=== PATIENT | female | born 1945 | race Caucasian/White ===

== ENCOUNTER 2020-12-28 07:28 | Emergency (ER) | payer BC ==
[2020-12-28] MEDS ORDERED: LIDOCAINE 2% MPF 5 ML VIAL IV ONE (07:29)
[2020-12-28] MEDS ORDERED: ETOMIDATE 20 MG/10 ML VIAL IV ONE (07:29)
[2020-12-28] MEDS ORDERED: SUCCINYLCHOLINE 20 MG/ML (10 ML) IV ONE (07:29)
--- NOTE | 2020-12-28 07:58 | RAD REPORT ---
EXAM DESCRIPTION: CT - Ct Stroke Brain Wo Cont - 12/28/2020 7:42 am CLINICAL HISTORY: aphasia COMPARISON: none TECHNIQUE: Computed axial tomography of the head was obtained. All CT scans are performed using dose optimization technique as appropriate and may include automated exposure control or mA/KV adjustment according to patient size. FINDINGS: A 6 centimeter intraparenchymal bleed right temporal frontal lobe. Surrounding subarachnoi d blood is seen. Shift of midline structures 5 millimeters towards the left. The ventricles are normal in caliber. No extra-axial fluid collection is noted. Fluid within the sinuses/ mastoids is not seen. IMPRESSION: A 6 centimeter right intraparenchymal cerebral bleed. Additional surrounding subarachnoi d blood Yoni of the emergency room notified 7:42 a.m. December 28, 2020
[2020-12-28] MEDS ORDERED: NA CHLORIDE 0.9% 1,000 ML ONE (08:04)
[2020-12-28] MEDS ORDERED: MIDAZOLAM HCL 2 MG/2 ML INJ ONE (08:04)
[2020-12-28] MEDS ORDERED: RSI MEDICATION KIT IV ONE (08:05)
[2020-12-28 08:10] LABS: Absolute Lymphocytes (CBC) 4.1 K/uL (0.7-4.9); Basophils % 0.5 % (0-1.3); Hematocrit 39.7 % (36.0-45.0); Lymphocytes % 20.4 % (15.3-44.8); RBC Red Blood Cell Count 4.27 M/uL (3.86-4.86)
--- NOTE | 2020-12-28 08:17 | ER ---
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 On EMS arrival pt was combative and gurgling, NPA placed. 90% RA, placed on NRB \\T\\ 10 L/min, 96%-100%. Ativan 1 mg IVP given. EMS noted gaze to the R, Left side flaccid. Spouse reports that she's had a headache x 5 days. Coronavirus screen: Client denies travel out of the [place] in the last 14 days. At this time, the client does not indicate any symptoms associated with coronavirus-19. Ebola Screen: No symptoms or risks identified at this time. Risk Assessment: Do you want to hurt yourself or someone else? Patient reports no desire to harm self or others. Onset of symptoms was December 28, 2020. 07:30 Method Of Arrival: EMS: [facility] sv 07:30 Acuity: INESSA 1 sv 07:38 Initial Sepsis Screen: Does the patient meet any 2 criteria? HR > 90 bpm. Yes Does the sv patient have a suspected source of infection? No. Patient's initial sepsis screen is negative. Triage Assessment: 07:30 General: Appears uncomfortable, well developed, Behavior is agitated, restless, sv uncooperative. Pain: Unable to use pain scale. FLACC scale score is 0 out of 10. Neuro: Level of Consciousness is unresponsive, Oriented to none. Respiratory: Airway is patent Respiratory effort is even, unlabored, Respiratory pattern is regular, symmetrical. Derm: Skin is normal. Historical: - Allergies: 08:05 No Known Allergies; hb - Home Meds: 08:05 amlodipine 5 mg tab 1 tab once daily [Active]; hb - PMHx: 08:05 HTN; hb - PSHx: 08:05 None; hb - Immunization history:: Adult Immunizations unknown. - Social history:: Smoking status: unknown. Screenin:26 Abuse screen: unable to complete. Nutritional screening: unable to complete . sv Tuberculosis screening: unable to complete . Assessment: 07:31 Reassessment: Code Stroke called. Pt tp CT by myself via stretcher. sv 07:35 General: Appears in no apparent distress. uncomfortable, Behavior is agitated, sv restless, uncooperative. Respiratory: Airway is patent Respiratory effort is even, unlabored, Respiratory pattern is regular, agonal. 08:34 Reassessment: Report given to Jonnie from [facility]. sv Vital Signs: 07:38 BP 161 / 83; Pulse 96; Resp 14; sv 07:45 BP 126 / 85; Pulse 88; Resp 24; Temp 98.5(C); Pulse Ox 100% on 30% FiO2 ETT vent; Pain sv 0/10; 08:25 BP 111 / 75; Pulse 92; Resp 26; Temp 98.7; Pulse Ox 100% on 30% FiO2 ETT vent; sv NIH Stroke Scale Scores: 07:34 NIHSS Score: 20 jr8 ED Course: 07:34 Patient arrived in ED. hb 07:34 Jonnie Fountain PA is PHCP. jr8 07:34 Junior Francis MD is Attending Physician. jr8 07:35 Arm band placed on. sv 07:42 CT Stroke Brain w/o Contrast In Process Unspecified. EDMS 07:45 initiated a transfer with Pamela from the [facility] transfer [place]. eb 07:[address] Salinas the neurologist personal lines appraiser for [facility] With Dr. Francis for eb patient transfer consultation. 07:54 Assisted provider with intubation using 7.5 mm ETT via oral route. ET tube secured at sv 23cm at the lips. Set up intubation tray. Intubated by Jonnie POSADA Placement verified by CO2 detector w/ + color change, auscultating bilateral breath sounds, Patient tolerated well. 08:00 NGT: inserted 16 Fr. other OGT verified return of gastric contents, to intermittent sv suction. 08:02 Rodas cath inserted, using sterile technique, 16 Fr., by me, balloon inflated. sv 08:04 administrative approval given by Pamela Bill Rn/ patient has been accepted to [facility] 4 Bed 9/ Dr. Salinas has accepted the patient in transfer/ report to be called to [phone]. 08:05 Denice Mcfadden, RN is Primary Nurse. sv 08:10 Triage completed. sv 08:10 called Cm Jacinto spoke with Jose Luis wray 9 min. eb 08:26 XRAY Chest (1 view) In Process Unspecified. EDMS 08:27 COVID-19 : Document "Date of Symptom Onset" if Symptomatic. Sent. sv 08:27 Basic Metabolic Panel Sent. sv 08:27 Protime (+inr) Sent. sv 08:27 Magnesium Sent. sv 08:27 CBC with Diff Sent. sv Administered Medications: 07:47 Drug: Lidocaine 50 mg Route: IVP; Site: right antecubital; sv 08:27 Follow up: Response: No adverse reaction sv 07:53 Drug: Succinylcholine 70 mg Route: IVP; Site: right antecubital; sv 08:27 Follow up: Response: No adverse reaction sv 07:53 Drug: Etomidate 20 mg Route: IVP; Site: right antecubital; sv 08:28 Follow up: Response: No adverse reaction sv 08:16 Drug: fentaNYL (PF) 50 mcg Route: IVP; Site: right antecubital; hb 08:27 Follow up: Response: No adverse reaction sv 08:16 Drug: Ativan (LORazepam) 2 mg Route: IVP; Site: right antecubital; hb 08:27 Follow up: Response: No adverse reaction sv 08:40 Drug: Zofran (Ondansetron) 4 mg Route: IVP; Site: right antecubital; sv 08:44 Follow up: Response: No adverse reaction sv 08:41 Drug: Keppra (levETIRAcetam) 1000 mg Route: IV; Rate: calculated rate; Site: right sv antecubital; 08:44 Follow up: IV Status: Infusion continued upon transfer sv Ventilator: 08:21 Fi02: 30%; Rate: 26min; T.V.: 480ml; Peep: 5cm; Mode: CMV; ET tube: 7.5 fr (Oral); sv Outcome: 08:16 ER care complete, transfer ordered by MD. sweeney 08:33 Transferred by helicopter to [facility], Transfer form completed. X-rays sent w/ patient. Note: Report given to Verito SCHULER 08:33 Condition: stable 08:33 Instructed on the need for transfer. 08:43 Patient left the ED. NIH Stroke Scale - NIH Stroke Score Date: 12/28/2020 Time: 07:34 Total Score = 20 1a. Level of Consciousness (LOC) - 3(Unresponsive) 1b. Level of Consciousness (LOC) (Month \\T\\ Age) - 2(Neither) 1c. LOC Commands (Open \\T\\ Closes Eyes/Global Technical Writer) - 2(Neither) 2. Best Gaze (Lateral Gaze Paresis) - 2(Forced deviation) 3. Visual Field Loss - 0(No visual loss) 4. Facial Palsy - 0(Normal) 5a. Left Arm: Motor (10-second hold) - 4(No movement) 5b. Right Arm: Motor (10-second hold) - 0(No drift) 6a. Left Leg: Motor (5-second hold - always test supine) - 4(No movement) 6b. Right Leg: Motor (5-second hold - always test supine) - 0(No drift) 7. Limb Ataxia (finger/nose \\T\\ heel/haider - test with eyes open) - 0(Absent) 8. Sensory Loss (pinprick arms/legs/face) - 0(Normal) 9. Best Language: Aphasia (description/naming/reading) - 3(Mute, global aphasia) 10. Dysarthria (speech clarity - read or repeat words) - 9(Intubated) - Notes: ICH 11. Extinction and Inattention (visual/tactile/auditory/spatial/personal) - 0(No abnormality) Initials: jr8 Signatures: Dispatcher [employer] EDDenice Cruz RN RN sv Roszak, Josh, PA PA jr8 Ramya Curtis RN RN hb Botello, Elizabeth eb
--- NOTE | 2020-12-28 08:17 | EDPHYS ---
Physician Documentation [facility] Name: Georgina Chacko Age: 75 yrs Sex: Female : 1945 Arrival Date: 12/28/2020 Time: 07:34 Bed 7 Private MD: ED Physician Junior Francis HPI: 12/28 08:07 This 75 yrs old Female presents to ER via Unassigned with complaints of jr8 Unresponsive. 08:07 Onset: The symptoms/episode began/occurred acutely, at an unknown time. last known jr8 normal 11 pm last night. Duration: The episode is continuous. The symptoms are alleviated by nothing. The symptoms are aggravated by nothing. Severity of symptoms: At their worst the symptoms were incapacitating. Patient's baseline: Neuro: alert and fully oriented, Motor: no deficits, Ambulation: walks without assistance, Speech: normal. The patient has not experienced similar symptoms in the past. The patient has been recently seen by a physician:. This is a 75-year-old female patient that was brought in by EMS who is unresponsive with flaccid paresis on the left side and right gaze defect. Family stated that patient had been complaining of moderate headache for the last 4 to 5 days that had improved over the last 24 hours. Had saw PCP the other day. Last known normal was 11 PM last night. Patient normally has no neurologic deficits. Family tried to wake her up this morning and found her in this condition.. Historical: - Allergies: 08:05 No Known Allergies; hb - Home Meds: 08:05 amlodipine 5 mg tab 1 tab once daily [Active]; hb - PMHx: 08:05 HTN; hb - PSHx: 08:05 None; hb - Immunization history:: Adult Immunizations unknown. - Social history:: Smoking status: unknown. ROS: 08:07 Unable to obtain ROS due to patient is on ventilator. jr8 Exam: 07:34 Radiologist reports: 6 cm intracerebral hemorrhage with subarachnoid component jr8 07:34 Skin: Warm, dry with normal turgor. Normal color with no rashes, no lesions, and no evidence of cellulitis. 07:34 Eyes: Periorbital structures: appear normal, Pupils: equal, round, and reactive to light and accomodation, Extraocular movements: gaze deviation towards the lateral on right eye and medial on left eye, Conjunctiva: normal, Sclera: no appreciated abnormality. 07:34 Cardiovascular: Rate: normal, Rhythm: regular, Pulses: Pulses are 2+ in right radial artery and left radial artery. Heart sounds: normal, normal S1and S2, no S3 or S4. 07:34 Abdomen/GI: Inspection: obese Palpation: soft, in all quadrants. 07:34 Neuro: Orientation: Not oriented to person, place, time, situation, Mentation: unable to follow commands, responsive to pain, Motor: complete left side paresis with normal movement of right side , Sensation: no obvious gross deficits, seizure activity, is not displayed by the patient, Abnormal movements: there are no abnormal movements. Vital Signs: 07:38 BP 161 / 83; Pulse 96; Resp 14; sv 07:45 BP 126 / 85; Pulse 88; Resp 24; Temp 98.5(C); Pulse Ox 100% on 30% FiO2 ETT vent; Pain sv 0/10; 08:25 BP 111 / 75; Pulse 92; Resp 26; Temp 98.7; Pulse Ox 100% on 30% FiO2 ETT vent; sv NIH Stroke Scale Scores: 07:34 NIHSS Score: 20 jr8 Ventilator: 08:21 Fi02: 30%; Rate: 26min; T.V.: 480ml; Peep: 5cm; Mode: CMV; ET tube: 7.5 fr (Oral); sv Procedures: 08:07 Intubation: Ventilated with 100% NRB prior to procedure. O2 saturation prior to jr8 procedure was 98 %. Intubated orally using # 4 Kiarra blade with 7.5 mm ETT. was successful on first attempt. Ventilated with ventilator. Tube secured with ETT gupta measured 23 cm at lip. Placement verified by CXR, CO2 detector with (+) color change, auscultating bilateral breath sounds, O2 saturation after procedure was 100 %. Patient tolerated well. MDM: 07:34 Patient medically screened. jr8 07:34 Data reviewed: vital signs, nurses notes, lab test result(s), EKG, radiologic studies, jr8 CT scan, plain films. Data interpreted: Pulse oximetry: on room air is 94 %. Interpretation: borderline. Counseling: I had a detailed discussion with the patient and/or guardian regarding: the historical points, exam findings, and any diagnostic results supporting the discharge/admit diagnosis, lab results, radiology results, the need to transfer to another facility, [facility] does not immediately have the required specialist. 12/28 07:34 Order name: Basic Metabolic Panel jr 12/28 07:34 Order name: CBC with Diff jr8 12/28 07:34 Order name: Magnesium jr8 12/28 07:34 Order name: Protime (+inr) [facility] 12/28 07:34 Order name: Ptt, Activated; Complete Time: 08:33 jr8 12/28 07:34 Order name: Troponin (emerg Dept Use Only) [facility] 12/28 07:34 Order name: BNP jr 12/28 07:34 Order name: Basic Metabolic Panel EDMS 12/28 07:34 Order name: CBC with Automated Diff; Complete Time: 08:16 EDMS 12/28 07:34 Order name: Magnesium EDMS 12/28 07:34 Order name: Protime (+INR); Complete Time: 08:33 EDMS 12/28 07:50 Order name: COVID-19 : Document "Date of Symptom Onset" if Symptomatic. sv 12/28 07:34 Order name: CT Stroke Brain w/o Contrast; Complete Time: 08:06 [facility] 12/28 07:34 Order name: EKG; Complete Time: 07:35 [facility] 12/28 07:34 Order name: Cardiac monitoring; Complete Time: 08:27 [facility] 12/28 07:34 Order name: EKG - Nurse/Tech; Complete Time: 08:27 [facility] 12/28 07:34 Order name: IV Saline Lock; Complete Time: 08:27 [facility] 12/28 07:34 Order name: Labs collected and sent; Complete Time: 08:27 [facility] 12/28 08:10 Order name: XRAY Chest (1 view) [facility] 12/28 07:34 Order name: NPO; Complete Time: 08:27 [facility] 12/28 07:34 Order name: O2 Per Protocol; Complete Time: 08:27 [facility] 12/28 07:34 Order name: O2 Sat Monitoring; Complete Time: 08:26 [facility] 12/28 07:34 Order name: Stroke Swallow Screen; Complete Time: 08:26 [facility] 12/28 08:06 Order name: NG Tube; Complete Time: 08:11 [facility] 12/28 08:06 Order name: Rodas; Complete Time: 08:11 jr8 Administered Medications: 07:47 Drug: Lidocaine 50 mg Route: IVP; Site: right antecubital; sv 08:27 Follow up: Response: No adverse reaction sv 07:53 Drug: Succinylcholine 70 mg Route: IVP; Site: right antecubital; sv 08:27 Follow up: Response: No adverse reaction sv 07:53 Drug: Etomidate 20 mg Route: IVP; Site: right antecubital; sv 08:28 Follow up: Response: No adverse reaction sv 08:16 Drug: fentaNYL (PF) 50 mcg Route: IVP; Site: right antecubital; hb 08:27 Follow up: Response: No adverse reaction sv 08:16 Drug: Ativan (LORazepam) 2 mg Route: IVP; Site: right antecubital; hb 08:27 Follow up: Response: No adverse reaction sv 08:40 Drug: Zofran (Ondansetron) 4 mg Route: IVP; Site: right antecubital; sv 08:44 Follow up: Response: No adverse reaction sv 08:41 Drug: Keppra (levETIRAcetam) 1000 mg Route: IV; Rate: calculated rate; Site: right sv antecubital; 08:44 Follow up: IV Status: Infusion continued upon transfer sv Disposition: 10:16 Co-signature as Attending Physician, Junior Francis MD I agree with the assessment and kdr plan of care. Disposition Summary: 12/28/20 08:16 Transfer Ordered Transfer Location: [facility] jr8 Reason: Higher level of care jr8 Condition: Critical jr8 Problem: new jr8 Symptoms: are unchanged jr8 Accepting Physician: Dr. 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 Total time: 40 minutes NIH Stroke Scale - NIH Stroke Score Date: 12/28/2020 Time: 07:34 Total Score = 20 1a. Level of Consciousness (LOC) - 3(Unresponsive) 1b. Level of Consciousness (LOC) (Month \\T\\ Age) - 2(Neither) 1c. LOC Commands (Open \\T\\ Closes Eyes/Access Spec) - 2(Neither) 2. Best Gaze (Lateral Gaze Paresis) - 2(Forced deviation) 3. Visual Field Loss - 0(No visual loss) 4. Facial Palsy - 0(Normal) 5a. Left Arm: Motor (10-second hold) - 4(No movement) 5b. Right Arm: Motor (10-second hold) - 0(No drift) 6a. Left Leg: Motor (5-second hold - always test supine) - 4(No movement) 6b. Right Leg: Motor (5-second hold - always test supine) - 0(No drift) 7. Limb Ataxia (finger/nose \\T\\ heel/haider - test with eyes open) - 0(Absent) 8. Sensory Loss (pinprick arms/legs/face) - 0(Normal) 9. Best Language: Aphasia (description/naming/reading) - 3(Mute, global aphasia) 10. Dysarthria (speech clarity - read or repeat words) - 9(Intubated) - Notes: ICH 11. Extinction and Inattention (visual/tactile/auditory/spatial/personal) - 0(No abnormality) Initials: patel Signatures: Dispatcher [employer] EDDenice Cruz, Junior Meyers RN, MD MD kdr Roszak, Josh, PA PA jr8 Ramya Curtis RN RN Corrections: (The following items were deleted from the chart) 08:06 07:50 CORONAVIRUS ordered. EDMS EDMS 08:07 07:34 Radiologist reports: 5 cm intracerebral hemorrhage with subarachnoid jr8 component jr8 08:25 07:35 Chest Single View+RAD.RAD.BRZ ordered. EDMS EDMS 08:27 07:34 Accucheck ordered. jr8 sv 08:43 08:16 Dr. Salinas jr8 sv
[2020-12-28 08:24] LABS: Protime INR 0.97
[2020-12-28] MEDS ORDERED: LORazepam 2 MG/ML VIAL ONE (08:35)
[2020-12-28] MEDS ORDERED: FENTANYL CITR 100 MCG/2 ML ONE (08:36)
--- NOTE | 2020-12-28 08:57 | RAD REPORT ---
EXAM DESCRIPTION: Yandy Single View12/28/2020 8:26 am CLINICAL HISTORY: Device placement Endotracheal tube placement COMPARISON: none FINDINGS: An endotracheal tube with its tip at the carlo pointing towards the right mainstem bronch us. Lungs appear clear of acute infiltrate. Heart is normal size. Nasogastric tube within the gastric bod y IMPRESSION: An endotracheal tube with its tip at the carlo pointing towards the right mainstem bron chus. The exam was discussed with Jonnie in ER
[2020-12-28 08:59] VITALS: O2SAT 100
[2020-12-28] MEDS ORDERED: NA CHLORIDE 0.9% 100 ML ONE (09:01)
[2020-12-28] MEDS ORDERED: ONDANSETRON 4 MG/2 ML VIAL ONE (09:01)
[2020-12-28] MEDS ORDERED: LEVETIRACETAM 500 MG/5 ML VIAL IV ONE (09:01)
[2020-12-28 09:02] VITALS: BP 111/75; TEMP 98.7
[2020-12-28 09:11] LABS: BUN Blood Urea Nitrogen 12 mg/dL (7-18); Bicarbonate 27 mmol/L (21-32); Glucose Level 203 mg/dL (74-106); Magnesium 2.1 mg/dL (1.8-2.4); NT PRO-BNP 103 pg/mL (<450); Sodium Level 137 mmol/L (136-145); Troponin (Emerg Dept Use Only) < 0.02 ng/mL (0.0-0.045)
--- NOTE | 2020-12-30 08:04 | EKG ---
Test Date: 2020-12-28 Test Time: 08:21:23 Quartz Orientator: TUCKER MEASUREMENT RESULTS: Intervals: Rate: 95 AR: 150 QRSD: 80 QT: 376 QTc: 472 [place]: P: 72 AR: 150 QRS: 56 T: 60 INTERPRETIVE STATEMENTS: Normal sinus rhythm Biatrial enlargement Nonspecific ST and T wave abnormality Prolonged QT Abnormal ECG No previous ECG available for comparison Electronically Signed On 12-30-20 08:00:45 CDT by Alex Sevilla
== END 2020-12-28 08:43 | disposition short-term general hospital (02) ==
LOC: ER 07:28
PROC: 0BH17EZ Insertion of Endotracheal Airway into Trachea, Via Natural or Artificial Opening (ICD-10-PCS; principal; 2020-12-28)
PROC: 5A1935Z Respiratory Ventilation, Less than 24 Consecutive Hours (ICD-10-PCS; 2020-12-28)
DX: I61.9 Nontraumatic intracerebral hemorrhage, unspecified (principal); G81.94 Hemiplegia, unspecified affecting left nondominant side; I10 Essential (primary) hypertension; R29.720 NIHSS score 20; Z20.822 Contact with and (suspected) exposure to COVID-19
CPT/HCPCS: 93005; 85025; 80048; 36415; 83735; 85610; 85730; 84484; 83880; 70450; 71045; 94002; 31500; 51702; 96375; 96374; 99291; U0003; J0330; J2250; J3010; J1953; J7030; J2405

== ENCOUNTER 2021-07-07 17:54 | Emergency (ER) | payer MEDICARE ==
--- OUTSIDE RECORDS SUMMARY | 2021-07-07 18:07 | XMS REPORT | Continuity of Care Document ---
:1945 Author Organization [facility] t Address [address] [place] [address] Care Team Providers Name Role Phone Pcp Primary Care Physician Unavailable ANDRE DAVILA Attending Clinician Unavail able Perry RODRIGUEZ, In Attending Clinician Lidia RODRIGUEZ, Ronald Attending Clinician Kareem Charles MD Attending Clinician Opal García CRNA Attending Clinician Simona Small MD Attending Clinician Virtual Attending Clinician Unavailable Carleen RODRIGUEZ Attending Clinician Unavailable Greg Jose MD Attending Clinician Peri RODRIGUEZ Attending Clinician ANDRE DAVILA Admitting Clinician Unavail able Payers Payer Name Policy Type Policy Number Effective Date Expiration Date S sherita [facility] HMO OS [id number] 2020 00:00:00 FORMERLY [facility] Virtual Call Center [id number] 2021 (MEDICARE 00:00:00 REPLACEMENT HMO) Problems Condition Condition Condition Status Onset Resolution Last Treating Co mments Source Name Details Category Date Date Treatment Clinician Date Respirator Respirator Disease Active [facility]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 12-29 [facility] - 00:[facility]: Medical [address] [place] [address] Hypertensi Hypertensi Disease Active [facility] 00 [place] Acute on Acute on Disease [facility] - anemia anemia 00:00: Medical 00 [place] Midline Midline Disease Active [facility] shift of shift of 12-29 [facility] - brain due brain due 00:00: Medi samina to to 00 Center hematoma hematoma Unresponsi Unresponsi Disease Active [facility] ve ve 12-29 [facility] - 00:[facility]: Medical 00 [place] SAH SAH Disease Active [facility] (sub[facility]achn (subarachn 12-29 [facility] - oid oid 00:00: Medical hemorrhage hemorrhage 00 Ce nter ) ) Acute Acute Disease Active [facility] respirator respirator 12-29 [facility] - y y 00:00: Medical alkalosis alkalosis 00 Cent er Hypovolemi Hypovolemi Disease Active [facility] shock c shock 12-29 [facility] - 00:[facility]: Medical 00 [place] Intracrani Intracrani Disease Active [facility] al al 12-28 [facility] - hemorrhage hemorrhage 00:00: Me dical 00 Center Allergies, Adverse Reactions, Alerts Allergy Allergy Status Severity Reaction(s) Onset Inactive Treating Comm ents Source Name Type Date Date Clinician NO KNOWN Allergy Active [facility] CATHY [facility] Social History Social Habit Start Date Stop Date Quantity [facility] B[facility] Zainab ter Sex Assigned At [facility] Tobacco use and 2021-01-14 2021-01-14 Never used [facility] cy - exposure 00:00:00 00:00:00 [facility] Alcohol intake 2021-01-14 2021-01-14 [facility] non-drinker Medical Genet r (finding) History SDOH 2020-12-28 2020-12-28 [address] [facility] [address] Rao - Alcohol Frequency 00:00:00 00:00:00 [facility] Smoking Status Start Date Stop Date Source Never smoker [facility] edical [place] Medications Ordered Filled Start Stop Current Ordering Indication Dosage Frequency Signature Comments Components Source Medication Medication Date Date Medication? Clinician (SIG) Name Name cyanocobala Yes 100ug QD Take [address] [facility] min, 01-19 tablet [facility] - vitamin 00:00: (100 mcg Medica l B-12, 100 00 total) by Cente r MCG tablet mouth daily. thiamine Yes 100mg QD Take [address] 100 MG 01-19 tablet [facility] - tablet 00:00: (100 mg Medical 00 total) by Center mouth daily. levoFLOXaci 2020- No 750mg QD Take [address] n 01-19 tablet [facility] - (LEVAQUIN) 00:00: 00:00 (750 mg Med ical 750 MG 00 :00 total) by Center tablet mouth daily for 5 days. amLODIPine hypertensio 5mg QD Take [address] (NORVASC) 5 01-18 n by mouth [facility] es - MG tablet 09:26: 00:00 daily. Medic al 23 :00 Center folic acid Yes 1mg QD Take 1 [facility] (FOLVITE) 1 01-18 tablet (1 [facility] - MG tablet 00:00: mg total) Med ical 00 by mouth Center daily. levETIRAcet Yes 500mg Q.5D 5 mLs ([address] am (KEPPRA) 8-27 mg total) [facility] es - 500 mg/5 mL 00:00: by Feed Med ical (5 mL) Soln 00 Tube route Ce nter oral 2 (two) solution times daily. niMODipine Yes 60mg Take 2 [facility] (NIMOTOP) 01-18 capsules [facility] - 30 MG 00:00: (60 mg Medical capsule 00 total) by Center mouth every 4 (four) hours. modafiniL 2020- No Take 1 [facility] (PROVIGIL) 01-18 09-10 tablet [facility] - 200 MG 00:00: 23:59 (200 mg Medical tablet 00 :00 total) by Center mouth daily for 7 days, THEN 0.5 tablets (100 mg total) daily for 7 days. Max Daily Amount: 200 mg. folic acid 2020- No 1mg QD Take [address] (FOLVITE) 1 01-15 tablet (1 Yin kes - MG tablet 00:00: 00:00 mg total) Me dical 00 :00 by mouth Center daily. levETIRAcet No 500mg Q.5D 5 mLs ([address] am (KEPPRA) 01-15 mg total) Yin kes - 500 mg/5 mL 00:00: 00:00 by Feed Me dical (5 mL) Soln 00 :00 Tube route Ce nter oral 2 (two) solution times daily for 30 days. modafiniL 2020- No 200mg QD Take [address] (PROVIGIL) 01-15 tablet [facility] - 200 MG 00:00: 00:00 (200 mg Medical tablet 00 :00 total) by Center mouth daily for 30 days. Max Daily Amount: 200 mg niMODipine No 60mg Take [address] (NIMOTOP) 01-15 capsules [facility] - 30 MG 00:00: 00:00 (60 mg Medical capsule 00 :00 total) by Center mouth every 4 (four) hours for 17 days. Vital Signs Vital Name Observation Time Observation Value Comments Source WEIGHT 2021-01-18 04:35:00 66.225 kg WEIGHT 2021-01-17 06:00:00 64.864 kg WEIGHT 2021-01-14 06:00:00 64.864 kg WEIGHT 2021-01-13 06:00:00 64.864 kg HEIGHT 2020-12-28 14:08:00 162.6 cm WEIGHT 2020-12-28 09:20:00 65.2 kg WEIGHT 2021-01-18 04:35:00 66.225 kg WEIGHT 2021-01-17 06:00:00 64.864 kg WEIGHT 2021-01-14 06:00:00 64.864 kg WEIGHT 2021-01-13 06:00:00 64.864 kg HEIGHT 2020-12-28 14:08:00 162.6 cm WEIGHT 2020-12-28 09:20:00 65.2 kg Heart rate 2021-01-19 08:29:00 98 /min [facility] Respiratory rate 2021-01-19 08:29:00 18 /min [facility] Oxygen saturation in 2021-01-19 08:29:00 96 /min [facility] Arterial blood by Medical Ce nter Pulse oximetry Systolic blood 2021-01-19 07:31:00 108 mm[Hg] [facility] Diastolic blood 2021-01-19 07:31:00 70 mm[Hg] [facility] Body temperature 2021-01-19 07:31:00 35.72 Niecy [facility] Body weight 2021-01-18 04:35:00 66.225 kg [facility] BMI 2021-01-18 04:35:00 25.06 kg/m2 [facility] Body height 2021-01-01 11:27:00 162.6 cm [facility] Procedures Procedure Date / Time Performing Clinician Source Performed POCT-GLUCOSE METER 2021-01-19 06:06:00 Maury Amador In [facility] POCT-GLUCOSE METER 2021-01-19 00:08:00 Maury Amador In [facility] POCT-GLUCOSE METER 2021-01-18 18:00:00 Maury Amador In [facility] POCT-GLUCOSE METER 2021-01-18 13:03:00 Maury Amador In [facility] POCT-GLUCOSE METER 2021-01-18 12:18:00 Maury Amador In [facility] SARS-COV2/RT-PCR ([facility] & 2021-01-18 10:03:00 Maury Amador In [facility] REF LABS) [facility] POCT-GLUCOSE METER 2021-01-18 06:22:00 Maury Amador In [facility] CBC W/PLT COUNT & AUTO 2021-01-18 06:10:00 Coreen Marsh [facility] BASIC METABOLIC PANEL (7) 2021-01-18 06:10:00 Coreen Marsh [facility] POCT-GLUCOSE METER 2021-01-18 00:37:00 Tracee-Nasima Lirag In [facility] POCT-GLUCOSE METER 2021-01-17 17:27:00 Tracee-Pankaj Sung In [facility] EEG AWAKE AND DROWSY 2021-01-17 15:12:00 [facility] 2021-01-17 14:34:00 Adriano Gonzalez [facility] URINALYSIS W/ REFLEX URINE 2021-01-17 14:34:[address] [facility] POCT-GLUCOSE METER 2021-01-17 12:25:00 Maury Amador [facility] XR CHEST 1 VIEW PORTABLE / 2021-01-17 09:50:00 Adriano Gonzalez [facility] BASIC METABOLIC PANEL (7) 2021-01-17 05:36:00 Miri Murillo [facility] CBC W/PLT COUNT & AUTO 2021-01-17 05:36:00 Miri Murillo [facility] MAGNESIUM 2021-01-17 05:36:00 Miri Murillo [facility] PHOSPHORUS 2021-01-17 05:36:00 Miri Murillo [facility] (CELLAVISION MANUAL DIFF) 2021-01-17 05:36:00 Miri Murillo [facility] POCT-GLUCOSE METER 2021-01-17 05:25:00 Tracee-Maury Lria In [facility] POCT-GLUCOSE METER 2021-01-17 00:20:00 Tracee-Pankaj Sung In [facility] POCT-GLUCOSE METER 2021-01-16 18:22:00 Tracee-Nasima Lirag In [facility] SARS-COV2/RT-PCR ([facility] & 2021-01-16 17:47:00 Miri Murillo [facility] CTA BRAIN 2021-01-16 17:42:00 GonzalezDeanne [facility] POCT-GLUCOSE METER 2021-01-16 11:55:00 RomMaury Lira [facility] POCT-GLUCOSE METER 2021-01-16 06:50:00 Kameron, [facility] BASIC METABOLIC PANEL (7) 2021-01-16 04:06:00 Miri Murillo [facility] CBC W/PLT COUNT & AUTO 2021-01-16 04:06:00 Miri Murillo [facility] MAGNESIUM 2021-01-16 04:06:00 Miri Murillo [facility] PHOSPHORUS 2021-01-16 04:06:00 Miri Murillo [facility] POCT-GLUCOSE METER 2021-01-16 00:12:00 Kameron, [facility] POCT-GLUCOSE METER 2021-01-15 17:47:00 Kameron, [facility] POCT-GLUCOSE METER 2021-01-15 12:12:00 Kameron, [facility] POCT-GLUCOSE METER 2021-01-15 06:48:00 Kameron, [facility] BASIC METABOLIC PANEL (7) 2021-01-15 05:43:00 Miri Murillo [facility] CBC W/PLT COUNT & AUTO 2021-01-15 05:43:00 Miri Murillo [facility] MAGNESIUM 2021-01-15 05:43:00 Miri Murillo [facility] PHOSPHORUS 2021-01-15 05:43:00 Miri Murillo [facility] POCT-GLUCOSE METER 2021-01-15 00:32:00 Kameron, [facility] POCT-GLUCOSE METER 2021-01-14 18:26:00 Kameron, [facility] SODIUM 2021-01-14 15:39:00 Miri Murillo [facility] POCT-GLUCOSE METER 2021-01-14 11:34:00 Kameron, [facility] INSERTION,GASTROSTOMY 2021-01-14 07:52:[address] [facility] TUBELAPAROSCOPIC [facility] POCT-GLUCOSE METER 2021-01-14 05:44:00 Kameron, [facility] BASIC METABOLIC PANEL (7) 2021-01-14 04:27:00 Miri Murillo [facility] CBC W/PLT COUNT & AUTO 2021-01-14 04:27:00 Barry Funes [facility] MAGNESIUM 2021-01-14 04:27:00 Miri Murillo [facility] PHOSPHORUS 2021-01-14 04:27:00 Miri Murillo [facility] POCT-GLUCOSE METER 2021-01-13 23:50:00 Kameron, [facility] POCT-GLUCOSE METER 2021-01-13 16:39:00 Kameron, [facility] SODIUM 2021-01-13 15:02:00 Miri Murillo [facility] TYPE AND SCREEN, AUTOMATED 2021-01-13 15:02:00 Kristi Gonzalez [facility] POCT-GLUCOSE METER 2021-01-13 12:09:00 Kameron, [facility] POCT-GLUCOSE METER 2021-01-13 05:18:00 Kameron, [facility] CBC W/PLT COUNT & AUTO 2021-01-13 04:17:00 Barry Funes [facility] BASIC METABOLIC PANEL (7) 2021-01-13 04:16:00 Miri Murlilo [facility] MAGNESIUM 2021-01-13 04:16:00 Miri Murillo [facility] PHOSPHORUS 2021-01-13 04:16:00 Miri Murillo [facility] POCT-GLUCOSE METER 2021-01-12 23:43:00 Kameron, [facility] POCT-GLUCOSE METER 2021-01-12 17:14:00 Kameron, [facility] VANCOMYCIN LEVEL, TROUGH 2021-01-12 13:37:00 Ali, Petrona [facility] SODIUM 2021-01-12 13:37:00 Lidia Miri F. [facility] POCT-GLUCOSE METER 2021-01-12 11:59:00 Kameron, [facility] POCT-GLUCOSE METER 2021-01-12 07:52:00 Kameron, [facility] POCT-GLUCOSE METER 2021-01-12 05:56:00 Kameron, [facility] BASIC METABOLIC PANEL (7) 2021-01-12 05:32:00 Miri Murillo [facility] CBC W/PLT COUNT & AUTO 2021-01-12 05:32:00 Barry Funes [facility] MAGNESIUM 2021-01-12 05:32:00 Miri Murillo [facility] PHOSPHORUS 2021-01-12 05:32:00 Miri Murillo [facility] (CELLAVISION MANUAL DIFF) 2021-01-12 05:32:00 Barry Funes aemario [facility] POCT-GLUCOSE METER 2021-01-11 23:41:00 Kameron, [facility] IR GASTROSTOMY TUBE 2021-01-11 17:16:00 Kameron, [facility] L ukes - INSERTION W/FLUORO Medical Cente r POCT-GLUCOSE METER 2021-01-11 12:16:00 Kameron, [facility] PT/APTT 2021-01-11 10:13:00 Kameron, [facility] POCT-GLUCOSE METER 2021-01-11 06:20:00 Kameron, [facility] SODIUM 2021-01-11 04:47:00 Miri Murillo [facility] BASIC METABOLIC PANEL (7) 2021-01-11 04:47:00 Miri Murillo [facility] CBC W/PLT COUNT & AUTO 2021-01-11 04:47:00 Barry Funes [facility] MAGNESIUM 2021-01-11 04:47:00 Miri Murillo [facility] PHOSPHORUS 2021-01-11 04:47:00 Miri Murillo [facility] (CELLAVISION MANUAL DIFF) 2021-01-11 04:47:00 Barry Funes [facility] POCT-GLUCOSE METER 2021-01-11 00:05:00 Kameron, [facility] C. DIFFICILE GDH TOXIN 2021-01-10 08:33:00 Coreen Marsh [facility] BASIC METABOLIC PANEL (7) 2021-01-10 08:33:00 Miri Murillo [facility] CBC W/PLT COUNT & AUTO 2021-01-10 08:33:00 Barry Funes [facility] MAGNESIUM 2021-01-10 08:33:00 Miri Murillo [facility] PHOSPHORUS 2021-01-10 08:33:00 Miri Murillo [facility] VANCOMYCIN LEVEL, TROUGH 2021-01-10 08:33:00 Barry Funes [facility] POCT-GLUCOSE METER 2021-01-10 06:02:00 ToñaJenna [facility] POCT-GLUCOSE METER 2021-01-09 23:24:00 Jenna Ding [facility] SODIUM 2021-01-09 16:00:00 Miri Murillo [facility] POCT-GLUCOSE METER 2021-01-09 15:59:00 Barry Funes [facility] SARS-COV2/RT-PCR ([facility] & 2021-01-09 15:21:00 Miri Murillo [facility] - REF LABS) [facility] BASIC METABOLIC PANEL (7) 2021-01-09 02:50:00 Miri Murillo [facility] CBC W/PLT COUNT & AUTO 2021-01-09 02:50:00 Sancho Martinez [facility] MAGNESIUM 2021-01-09 02:50:00 Miri Murillo [facility] PHOSPHORUS 2021-01-09 02:50:00 Miri Murillo [facility] SODIUM 2021-01-08 17:25:00 Miri Murillo [facility] XR CHEST 1 VIEW PORTABLE / 2021-01-08 11:05:00 Barry Funes [facility] URINALYSIS W/ REFLEX URINE 2021-01-08 10:56:[address] [facility] BASIC METABOLIC PANEL (7) 2021-01-08 03:14:00 Miri Murillo [facility] CBC W/PLT COUNT & AUTO 2021-01-08 03:14:00 Sancho Martinez [facility] MAGNESIUM 2021-01-08 03:14:00 Miri Murillo [facility] PHOSPHORUS 2021-01-08 03:14:00 Miri Murillo [facility] (CELLAVISION MANUAL DIFF) 2021-01-08 03:14:00 Sancho Martinez [facility] PROCALCITONIN 2021-01-07 20:15:00 [facility] 2021-01-07 15:30:00 Shantel [facility] BLOOD CULTURE 2021-01-07 14:25:00 Lisa [facility] SPUTUM CULTURE + GRAM 2021-01-07 14:01:00 [facility]LO[facility] 2021-01-07 13:49:00 [facility] BLOOD [facility], ARTERIAL 2021-01-07 13:49:00 Lisa Resnick [facility] COMPREHENSIVE METABOLIC 2021-01-07 13:48:00 Adriano Gonzalez Charly [facility] HEPATIC FUNCTION PANEL 2021-01-07 13:48:00 Shantel [facility] MAGNESIUM 2021-01-07 13:48:00 Shantel [facility] PHOSPHORUS 2021-01-07 13:48:[address] [facility] [address] BRAIN WITHOUT IV 2021-01-07 13:35:00 Lisa [facility] XR CHEST 1 VIEW PORTABLE / 2021-01-07 11:54:00 Adriano Gonzalez [facility] POCT-GLUCOSE METER 2021-01-07 11:34:00 Shantel [facility] EEG AWAKE AND DROWSY 2021-01-07 08:54:00 Amador Shepard [facility] POCT-GLUCOSE METER 2021-01-07 05:29:00 Sonny Lr [facility] BASIC METABOLIC PANEL (7) 2021-01-07 03:12:00 Miri Murillo [facility] CBC W/PLT COUNT & AUTO 2021-01-07 03:12:00 Sancho Martinez CH I [facility] MAGNESIUM 2021-01-07 03:12:00 Miri Murillo [facility] PHOSPHORUS 2021-01-07 03:12:00 Miri Murillo [facility] POCT-GLUCOSE METER 2021-01-06 23:20:00 Be [facility] POCT-GLUCOSE METER 2021-01-06 17:19:00 Be [facility] SODIUM 2021-01-06 16:23:00 Miri Murillo [facility] POCT-GLUCOSE METER 2021-01-06 11:47:00 Be [facility] CT BRAIN WITHOUT IV 2021-01-06 10:31:00 Bessie Caban [facility] CTA BRAIN 2021-01-06 10:31:00 Bessie Caban [facility] POCT-GLUCOSE METER 2021-01-06 06:30:00 Be [facility] BLOOD GAS, ARTERIAL 2021-01-06 02:10:00 Lina Parson [facility] BASIC METABOLIC PANEL (7) 2021-01-06 02:09:00 Miri Murillo [facility] CBC W/PLT COUNT & AUTO 2021-01-06 02:09:00 Sancho Martinez [facility] MAGNESIUM 2021-01-06 02:09:00 Miri Murillo [facility] PHOSPHORUS 2021-01-06 02:09:00 Miri Murillo [facility] POCT-GLUCOSE METER 2021-01-06 01:17:00 Be [facility] SODIUM 2021-01-05 21:04:00 [facility] POCT-[facility]SE [facility]ER 2021-01-05 17:54:00 Be [facility] POCT-GLUCOSE METER 2021-01-05 12:02:00 Be [facility] POCT-GLUCOSE METER 2021-01-05 05:41:00 Be [facility] BLOOD GAS, ARTERIAL 2021-01-05 04:28:00 Sancho Martinez [facility] BASIC METABOLIC PANEL (7) 2021-01-05 04:27:00 Miri Murillo [facility] CBC W/PLT COUNT & AUTO 2021-01-05 04:27:00 Sancho Martinez [facility] MAGNESIUM 2021-01-05 04:27:00 Miri Murillo [facility] PHOSPHORUS 2021-01-05 04:27:00 Miri Murillo [facility] PROCALCITONIN 2021-01-05 04:27:00 Sancho Martinez [facility] POCT-GLUCOSE METER 2021-01-05 00:12:00 Be [facility] POCT-GLUCOSE METER 2021-01-04 18:03:00 Be [facility] HEMOGLOBIN AND HEMATOCRIT 2021-01-04 14:15:00 Vel Vick [facility] SODIUM 2021-01-04 14:15:00 Miri Murillo [facility] POTASSIUM 2021-01-04 14:15:00 Be [facility] POCT-GLUCOSE METER 2021-01-04 11:44:00 Be [facility] XR CHEST 1 VIEW PORTABLE / 2021-01-04 07:42:[address] [facility] BEDSIDE [facility] BLOOD GAS, ARTERIAL 2021-01-04 04:14:00 Sancho Martinez [facility] BASIC METABOLIC PANEL (7) 2021-01-04 04:06:00 Miri Murillo [facility] CBC W/PLT COUNT & AUTO 2021-01-04 04:06:00 Sancho Martinez [facility] MAGNESIUM 2021-01-04 04:06:00 Miri Murillo [facility] PHOSPHORUS 2021-01-04 04:06:00 Miri Murillo [facility] POCT-GLUCOSE METER 2021-01-04 01:05:00 Sal Salinsa [facility] Ce nter POCT-GLUCOSE METER 2021-01-03 17:33:00 Sal Salinas [facility] Ce nter SODIUM 2021-01-03 16:10:00 Miri Murillo [facility] NV CEREBRAL 4 VESSEL 2021-01-03 13:55:00 Sancho Martinez [facility] ANGIOGRAM [facility] [place] EMBOLIZATION EXTENSIVE 2021-01-03 13:55:00 Sancho Martinez [facility] POCT-GLUCOSE METER 2021-01-03 11:26:00 Sal Salinas [facility] Ce nter POCT-GLUCOSE METER 2021-01-03 05:22:00 Sal Salinas [facility] Ce nter BASIC METABOLIC PANEL (7) 2021-01-03 04:09:00 Miri Murillo [facility] CBC W/PLT COUNT & AUTO 2021-01-03 04:09:00 Billy Borja [facility] MAGNESIUM 2021-01-03 04:09:00 Miri Murillo [facility] PHOSPHORUS 2021-01-03 04:09:00 Miri Murillo [facility] BLOOD GAS, ARTERIAL 2021-01-03 04:09:00 Sancho Martinez Nilda [facility] XR CHEST 1 VIEW PORTABLE / 2021-01-03 00:31:00 Sal Salinas [facility] nter POCT-GLUCOSE METER 2021-01-02 23:13:00 Sal Salinas [facility] Ce nter POTASSIUM 2021-01-02 17:50:00 Miri Murillo [facility] POCT-GLUCOSE METER 2021-01-02 17:32:00 Sal Salinas [facility] Ce nter HC VENOUS DOPPLER EXT RAJAT 2021-01-02 17:10:00 Vel Vick [facility] VENOUS DOPPLER LEGS 2021-01-02 16:50:00 Vel Vick [facility] SODIUM 2021-01-02 16:05:00 Miri Murillo [facility] NEURO TCD - COMPLETE 2021-01-02 13:04:27 Barry Funes [facility] POCT-GLUCOSE METER 2021-01-02 11:23:00 Sal Salinas [facility] Ce nter POTASSIUM 2021-01-02 11:14:00 Miri Murillo [facility] MAGNESIUM 2021-01-02 11:14:00 Miri Murillo [facility] POCT-GLUCOSE METER 2021-01-02 05:59:00 Sal Salinas [facility] nter XR CHEST 1 VIEW PORTABLE / 2021-01-02 04:28:00 Sal Salinas [facility] nter BASIC METABOLIC PANEL (7) 2021-01-02 03:41:00 Miri Murillo [facility] CBC W/PLT COUNT & AUTO 2021-01-02 03:41:00 Huong Marybethbettina Min halie [facility] MAGNESIUM 2021-01-02 03:41:00 Miri Murillo [facility] PHOSPHORUS 2021-01-02 03:41:00 Miri Murillo [facility] BLOOD GAS, ARTERIAL 2021-01-02 03:41:00 Sancho Martinez [facility] POCT-GLUCOSE METER 2021-01-01 23:37:00 Sal Salinas [facility] Ce nter MR BRAIN WITHOUT IV 2021-01-01 22:08:00 Julian Epstein [facility] POCT-GLUCOSE METER 2021-01-01 17:45:00 [facility] Ce nter NEURO TCD - COMPLETE 2021-01-01 17:05:10 Barry Funes [facility] SODIUM 2021-01-01 15:55:00 Miri Murillo [facility] VANCOMYCIN LEVEL, TROUGH 2021-01-01 15:55:00 Ena Shepherd [facility] MAGNESIUM 2021-01-01 15:55:00 Vel Vick [facility] POTASSIUM 2021-01-01 15:55:00 Vel Vick [facility] POCT-GLUCOSE METER 2021-01-01 12:05:00 Sal Salinas [facility] Ce nter BLOOD GAS, ARTERIAL 2021-01-01 07:25:00 Verito Waldron [facility] BASIC METABOLIC PANEL (7) 2021-01-01 05:56:00 Miri Murillo [facility] MAGNESIUM 2021-01-01 05:56:00 Miri Murillo [facility] PHOSPHORUS 2021-01-01 05:56:00 Miri Murillo [facility] POCT-GLUCOSE METER 2021-01-01 05:13:00 Sal Salinas [facility] Ce nter CBC W/PLT COUNT & AUTO 2021-01-01 04:21:00 Billy Borja halie [facility] XR CHEST 1 VIEW PORTABLE / 2021-01-01 00:39:00 Sal Salinas, [facility] Ce nter POCT-GLUCOSE METER 2020-12-31 23:26:00 Sal Salinas [facility] Ce nter POCT-GLUCOSE METER 2020-12-31 19:11:00 Sal Salinas, [facility] Ce nter SODIUM 2020-12-31 16:09:00 Miri Murillo [facility] POTASSIUM 2020-12-31 16:09:00 Sal Salinas, [facility] Ce nter MAGNESIUM 2020-12-31 16:09:00 Sal Salinas, [facility] Ce nter XR ABDOMEN / KUB 1 VIEW 2020-12-31 13:46:00 Julian Epstein [facility] HC TCD COMPLETE 2020-12-31 13:30:00 Barry Funes [facility] POCT-GLUCOSE METER 2020-12-31 12:46:00 Sal Salinas [facility] Ce nter BASIC METABOLIC PANEL (7) 2020-12-31 03:46:00 Lina Parson [facility] [facility] CBC W/PLT COUNT & AUTO 2020-12-31 03:46:[address] [facility] MAGNESIUM 2020-12-31 03:46:00 Lina Parson [facility] POCT-GLUCOSE METER 2020-12-31 00:07:00 Sal Salinas [facility] Ce nter PREPARE LEUKO-REDUCED RBC 2020-12-30 23:54:[address] [facility] HEMOGLOBIN AND HEMATOCRIT 2020-12-30 20:57:00 Naeem Gonzalez [facility] POCT-GLUCOSE METER 2020-12-30 17:11:00 Sal Salinas [facility] Ce nter SODIUM 2020-12-30 17:01:00 Miri Murillo [facility] EEG 2-12 HR CONTINUOUS 2020-12-30 16:50:00 Frankie Kitchen I [facility] - MONITORING WITH VIDEO Medical Ce nter HC TCD COMPLETE 2020-12-30 16:45:00 Barry Funes [facility] CT BRAIN WITHOUT IV 2020-12-30 12:27:00 Deanne Gonzalez [facility] POCT-GLUCOSE METER 2020-12-30 12:01:00 Sal Salinas [facility] Ce nter SPUTUM CULTURE + GRAM 2020-12-30 09:37:00 Verito Waldron [facility] STAIN [facility] PROCALCITONIN 2020-12-30 09:37:00 Mert Waldrontory [facility] URINALYSIS WITH 2020-12-30 07:41:00 Mert Waldrontory [facility] - MICROSCOPIC IF INDICATED [facility] URINALYSIS MICROSCOPIC 2020-12-30 07:41:00 [facility] 2020-12-30 07:40:00 Vanita Bo[facility] BLOOD CULTURE 2020-12-30 07:35:00 Verito Waldron [facility] POCT-GLUCOSE METER 2020-12-30 06:56:00 Sal Salinas, [facility] nter EEG 12-26 HR CONTINUOUS 2020-12-30 06:13:00 Sal Salinas, I [facility] - MONITORING WITH VIDEO [facility] BASIC METABOLIC PANEL (7) 2020-12-30 04:55:00 Sal Salinas, [facility] nter CBC W/PLT COUNT & AUTO 2020-12-30 04:55:00 Sal Salinas, [facility] - DIFFERENTIAL [facility] MAGNESIUM 2020-12-30 04:55:00 Vel Vick [facility] (CELLAVISION MANUAL DIFF) 2020-12-30 04:55:00 Sal Salinas, [facility] nter XR CHEST 1 VIEW PORTABLE / 2020-12-30 03:22:00 Sal Salinas, [facility] - BEDSIDE [facility] SODIUM 2020-12-30 00:24:00 Sal Salinas, [facility] nter POCT-GLUCOSE METER 2020-12-30 00:09:00 Sal Salinas, [facility] nter SPUTUM CULTURE + GRAM 2020-12-29 17:17:00 Sal Salinas, [facility] HEMOGLOBIN AND HEMATOCRIT 2020-12-29 17:16:00 Sal Salinas, [facility] nter POCT-GLUCOSE METER 2020-12-29 17:16:00 Sal Salinas, [facility] nter SODIUM 2020-12-29 16:17:00 Sal Salinas, [facility] Ce nter TRANSFUSE LEUKO-REDUCED 2020-12-29 15:50:15 Vanita Mertkaittory [facility] - RED BLOOD CELLS [facility] 2D ECHO W/ DOPPLER 2020-12-29 14:23:23 Sal Salinas [facility] - (CW/PW/COLOR) [facility] POCT-GLUCOSE METER 2020-12-29 12:19:00 Sal Salinas, [facility] Ce nter EEG 12-26 HR CONTINUOUS 2020-12-29 11:34:00 Sal Salinas, I [facility] - MONITORING WITH VIDEO [facility] CTA BRAIN 2020-12-29 10:40:00 Deanne Gonzalez [facility] BLOOD GAS, ARTERIAL 2020-12-29 07:43:00 Julian Epstein [facility] BLOOD GAS, ARTERIAL 2020-12-29 06:07:00 Maria Mercado [facility] POCT-GLUCOSE METER 2020-12-29 06:07:00 Sal Salinas [facility] Ce nter MAGNESIUM 2020-12-29 05:59:[address] [facility] Ce nter PHOSPHORUS 2020-12-29 05:59:00 [facility], [facility] nter BASIC METABOLIC PANEL (7) 2020-12-29 05:59:00 Sal Salinas [facility] nter CBC W/PLT COUNT & AUTO 2020-12-29 05:59:00 Sal Salinas [facility] - DIFFERENTIAL [facility] HEMOGLOBIN A1C 2020-12-29 05:59:[address] [facility] Ce nter (CELLAVISION MANUAL DIFF) 2020-12-29 05:59:00 Sal Salinas [facility] Ce nter XR CHEST 1 VIEW PORTABLE / 2020-12-29 03:01:00 Sal Salinas [facility] BEDSIDE [facility] XR ABDOMEN / KUB 1 VIEW 2020-12-28 [facility] & AUTO 2020-12-28 22:13:00 Sal Salinas [facility] Ce nter PT/APTT 2020-12-28 22:13:[address] [facility] Ce nter COMPREHENSIVE METABOLIC 2020-12-28 22:13:00 Blank [facility] MAGNESIUM 2020-12-28 22:13:00 [facility] PHOSPHORUS 2020-12-28 22:13:00 [facility] (CELLAVISION MANUAL DIFF) 2020-12-28 22:13:00 Sal Salinas [facility] Ce nter CT BRAIN WITHOUT IV 2020-12-28 21:03:00 Jason Galan [facility] - CONTRAST PORTABLE [facility] PREPARE RBC 2020-12-28 20:43:00 Ava Whitt [facility] [place] INSERT 2020-12-28 13:56:27 Sal Salinas [facility]3] es - CATH,ART,PERCUT,SHORTTERM [facility] CRANIOTOMY,ANEURYSM 2020-12-28 13:43:00 Ava Whitt [facility] - CLIPPING [facility] ABORH, MANUAL 2020-12-28 13:02:00 AtifMilvia mondragon Oanh [facility] SARS-COV2/RT-PCR ([facility] & 2020-12-28 12:49:00 Coreen Marsh [facility] REF LABS) [facility] HEMOGLOBIN A1C 2020-12-28 12:45:00 Sal Salinas, [facility] nter PHENYTOIN LEVEL, TOTAL 2020-12-28 12:45:00 Sal Salinas [facility] nter TYPE AND SCREEN, AUTOMATED 2020-12-28 12:45:00 Coreen Marsh [facility] BLOOD GAS, ARTERIAL 2020-12-28 12:40:00 Sal Salinas [facility] nter CT BRAIN WITHOUT IV 2020-12-28 11:17:00 Mauro [facility] CTA BRAIN 2020-12-28 11:17:00 [facility] POCT-GLUCOSE METER 2020-12-28 11:17:00 Sal Salinas [facility] nter HEPATIC FUNCTION PANEL 2020-12-28 10:04:00 [facility] APTT 2020-12-28 10:04:00 Mauro [facility] PROTHROMBIN TIME/INR 2020-12-28 10:04:00 Vel Vick [facility] BASIC METABOLIC PANEL (7) 2020-12-28 10:04:00 Sal Salinas [facility] nter CBC W/PLT COUNT & AUTO 2020-12-28 10:04:00 Vel Vick [facility] (CELLAVISION MANUAL DIFF) 2020-12-28 10:04:[address] [facility] XR CHEST 1 VIEW PORTABLE / 2020-12-28 09:44:00 [facility] NEUROPHYSIOLOGY REPORT - 2020-12-28 00:00:00 Provider, Default [facility] Sc[facility] REPORT OF PROCEDURE - 2020-12-28 00:00:00 Provider, Default [facility] ENDOS[facility] SCAN Scanning [facility] Plan of Care Planned Activity Planned Date Details Comments Source Future Scheduled 2021-01-23 INFLUENZA VACCINE (#1) [facility] Test 00:00:00 [code = INFLUENZA Medical Ce nter VACCINE (#1)] Future Scheduled 2020-05-[address] [facility] 00:00:00 (12+) [code = Medical Center DEPRESSION SCREENING (12+)] Future Scheduled 2020-05-25 FALLS RISK SCREENING [facility] Test 00:00:00 [code = FALLS RISK Medical C enter SCREENING] Future Scheduled 2010 PNEUMOCOCCAL 65+ YRS [facility] Test 00:00:00 (1 of 1 - Medical Center [id number] PCV13) [code = PNEUMOCOCCAL 65+ YRS (1 of 1 - [id number] PCV13)] Future Scheduled 1995-09-29 SHINGLES VACCINES ([address] [facility] - Test 00:00:00 of 2) [code = SHINGLES Medic al Center VACCINES (1 of 2)] Future Scheduled 1964 DTAP/TDAP/TD VACCINES [facility] Test 00:00:00 (1 - Tdap) [code = Medical C enter DTAP/TDAP/TD VACCINES (1 - Tdap)] Future Scheduled 1963-09-29 HEPATITIS C SCREENING [facility] 00:00:00 [code = HEPATITIS C Medical Center SCREENING] Future Scheduled 1957 COVID-19 VACCINE (1) [facility] Test 00:00:00 [code = COVID-[address] VACCINE (1)] Future Scheduled [address] [facility] - Test 00[facility]00:00 [facility] colon (procedure) [code = 230201718] Encounters Start End Encounter Admission Attending Care Care Encounter Source Date/Time Date/Time Type Type Clinicians Facility Department ID 2020-12-28 Inpatient ER [facility] Neuro ICU [id number] [facility] 09:17:00 HERACLIO RODRIGUEZ 2021-06-06 2021-06-06 Outpatient DMG DM [id number] [facility] 12:01:00 12:01:00 [id number] Medica l Group 2021-01-21 2021-01-[address] [facility] [id number] [facility] 00:[facility]:00 Sung In [facility] 2021-01-14 2021-01-[address] [facility] [id number] 08:15:00 09:52:00 Miri [facility] 2021-01-14 2021-01-[address] [facility] [id number] 08:07:00 09:24:00 Event Henny García [facility] 2021-01-03 2021-01-[address] [facility] [id number] 12:06:00 14:16:00 Event Nathan Jarvis [facility] 2021-01-03 2021-01-03 Surgery Jose, [facility] [id number] 10:30:00 11:30:00 Surgeon [facility] 2021-01-02 2021-01-02 Outside Pcp, No [facility] [id number] 00:00:00 00:00:00 Orders [facility] 2020-12-28 2020-12-[address] [facility] [id number] 13:58:00 20:37:00 Event Fei Charles [facility] 2020-12-28 2020-12-[address] [facility] [id number] 12:38:00 19:25:00 [facility] 2020-12-28 2020-12-28 Travel [facility] [id number] [facility] 00:[facility]00 00:00:00 [facility] Results Test Description Test Time Test Comments Results Result Comments Source POC-Glucose meter 2021-01-19 06:20:00 Test Item Value Reference Range Interpretation Comme nts POC-Glucose Meter (test code = 130 mg/dL 70-110 H : Notified RN/MD: TESTED AT [facility] 1538) [address] [facility], [address]: Mixer Crane Operator/Techni marielos ID = [id number] for ROBIN KEMP Lab Interpretation (test code = Abnormal 35075-7) [facility] [id number] 06:20:00 Test Item Value Reference Range Interpretation Comments POC-GLUCOSE METER 130 mg/dL 70-110 H : Notified RN/MD: (NAZARIO) (test code = TESTED AT [facility] 67 1538) [facility], [address]: Mixer Crane Operator/Techni marielos ID = [id number] for ROBIN KEMP POCT-GLUCOSE [id number] 00:19:00 Test Item Value Reference Range Interpretation Comments POC-GLUCOSE METER 114 mg/dL 70-110 H : Notified RN/MD: (NAZARIO) (test code = TESTED AT [facility] 67 1538) [facility], [address]: Mixer Crane Operator/Techni marielos ID = [id number] for ROBIN KEMP SARS-CoV2/RT-PCR (Asymptomatic ONLY)2021-01-18 19:18:00 Test Item Value Reference Range Interpretation Comments SARS-COV2/RT-PCR (test Negative Negative code = 87445-0) NETTIE (test code = NETTIE) Negative result for this test determines that SARS-CoV-2 RNA was not present in the specimen above the Limit of Detection (LOD). However, Negative results do not preclude SARS-CoV-2 infection and should not be used as the sole basis for treatment or patient management decisions. Negative results must be combined with clinical observations, patient history, and epidemiological information. A false negative result may occur if a specimen is improperly collected, transported, or handled. A false negative result should be considered if patient's recent exposures or clinical presentation indicate that COVID-19 (SARS-CoV-2) is likely and diagnostic tests for other causes of illness are negative. Re-testing should be considered in cases of suspected false negatives. The limit of detection for this assay is 100 copies/mL. This SARS-CoV-2 test is a real-time RT_PCR test intended for the qualitative detection of nucleic acid from SARS-CoV-2 in a nasopharyngeal swab specimen collected from individuals suspected of COVID-19 by their healthcare provider. This test has not been Food and Drug Administration (FDA) cleared or approved. This is a modified version of an approved Emergency Use Authorization (EUA) and is in the process of review by the FDA. Once authorized by the FDA, the issued EUA will be effective until the declaration that circumstances exist justifying the authorization of the emergency use of in vitro diagnostic tests for detection and/or diagnosis of COVID-19 is terminated under Section 564(b)(2) of the Act or the EUA is revoked under Section 564(g) of the Act. Testing was performed using the CelluComp SARS-CoV-2 assay. Fact Sheet for Healthcare Providers:https://www.abelardo matos/taco/RT SARS-CoV-2 HCP Fact Sheet 51-562877.pdf Fact Sheet for Healthcare Patients:https://www.[employer]/taco/RT SARS-CoV-2 Patient Fact Sheet EN 51-395906U3.pdf Lab Interpretation Normal (test code = 32729-8) [facility] REF LAB[facility])2021-01-18 19:18:00 Test Item Value Reference Range Interpretation Comments SARS-COV2/RT-PCR (test code = Negative Negative 7794037) Negative result for this test determines that SARS-CoV-2 RNA was not present in the specimen above the Limit of Detection (LOD). However, Negative results do not preclude SARS-CoV-2 infection and should not be used as the sole basis for treatment or patient management decisions. Negative results must be combined with clinical observations, patient history, and epidemiological information. A false negative result may occur if a specimen is improperly collected, transported, or handled. A false negative result should be considered if patient's recent exposures or clinical presentation indicate that COVID-19 (SARS-CoV-2) is likely and diagnostic tests for other causes of illness are negative. Re-testing should be considered in cases of suspected false negatives.The limit of detection for this assay is 100 copies/mL.This SARS-CoV-2 test is a real-time RT_PCR test intended for the qualitative detection of nucleic acid from SARS-CoV-2 in a nasopharyngeal swab specimen collected from individuals suspected of COVID-19 by their healthcare provider.This test has not been Food and Drug Administration (FDA) cleared or approved. This is a modified version of an approved Emergency Use Authorization (EUA) and is in the process of review by the FDA. Once authorized by the FDA, the issued EUA will be e ffective until the declaration that circumstances exist justifying the authorization of the emergency use of in vitro diagnostic tests for detection and/or diagnosis of COVID-19 is terminated under Section 564(b)(2) of the Act or the EUA is revoked under Section 564(g) of the Act.Testing was performedusing the Landon SARS-CoV-2 assay.Fact Sheet for Healthcare Providers:https://www.Caarbon.[employer]/taco/RT SARS-CoV-2 HCP Fact Sheet 51- 243228.pdfFact Sheet for Healthcare Patients:https://www.Caarbon.[employer]/taco/RT SARS-CoV-2 Patient Fact Sheet EN 51-548289S9.pdfPOCT-GLUCOSE [id number] 18:11:00 Test Item Value Reference Range Interpretation Comments POC-GLUCOSE METER 125 mg/dL 70-110 H : TESTED A T [facility] 6720 (SiCortex) (test code = [facility] [employer] [facility], 1538) [address]: Mixer Crane Operator/Techni marielos ID = [id number] for Ca vitt, Eminae POCT-GLUCOSE [id number] 13:14:00 Test Item Value Reference Range Interpretation Comments POC-GLUCOSE METER 103 mg/dL 70-110 : TESTED A T [facility] 6720 (SiCortex) (test code = [facility] [employer] [facility], 1538) [address]: Mixer Crane Operator/Techni marielos ID = [id number] for Ca vitt, Eminae POCT-GLUCOSE [id number] 12:29:00 Test Item Value Reference Range Interpretation Comments POC-GLUCOSE METER 108 mg/dL 70-110 : TESTED A T [facility] 6720 (SiCortex) (test code = JOAN Haddad [facility], 1538) [address]: Mixer Crane Operator/Techni marielos ID = [id number] for Ca vitt, Prachiinae Basic Metabolic [id number] 10:16:00 Test Item Value Reference Range Interpretation Comments Sodium (test code = 135 meq/L 136-145 L 2951-2) Potassium (test code = 4.2 meq/L 3.5-5.1 2823-3) Chloride (test code = 100 meq/L 98-107 2075-0) CO2 (test code = 28 meq/L 22-29 2028-9) BUN (test code = 22 mg/dL 7-21 H 3094-0) Creatinine (test code 0.63 mg/dL 0.57-1.25 = 2160-0) Glucose (test code = 115 mg/dL 70-105 H 2345-7) Calcium (test code = 8.8 mg/dL 8.4-10.2 77318-2) EGFR (test code = 92 mL/min/1.73 [place] [address]-7) NOT ACCURATE CREATININE CLEARANCE IN PREDICTING GLOMERULAR FILTRATION RATE . ESTIMATED GFR I S NOT APPLICABLE FOR DIALYSIS PATIENTS. NETTIE (test code = NETTIE) Mixer Crane Operator ID - [id number] Lab Interpretation Abnormal (test code = 70515-6) [facility] METABOLIC [id number] 10:16:00 Test Item Value Reference Range Interpretation Comments SODIUM (BEAKER) 135 meq/L 136-145 L (test code = 381) POTASSIUM (BEAKER) 4.2 meq/L 3.5-5.1 (test code = 379) CHLORIDE (BEAKER) 100 meq/L 98-107 (test code = 382) CO2 (BEAKER) (test 28 meq/L 22-29 code = 355) BLOOD UREA NITROGEN 22 mg/dL 7-21 H (BEAKER) (test code = 354) CREATININE (BEAKER) 0.63 mg/dL 0.57-1.25 (test code = 358) GLUCOSE RANDOM 115 mg/dL 70-105 H (BEAKER) (test code = 652) CALCIUM (BEAKER) 8.8 mg/dL 8.4-10.2 (test code = 697) EGFR (BEAKER) (test 92 mL/min/1.73 ESTIMA ALEXANDRE GFR IS code = 1092) sq m NOT ACCURATE CREATININE CLEARANCE IN PREDICTING GLOMERULAR FILTRATION RATE . ESTIMATED GFR I S NOT APPLICABLE FOR DIALYSIS PATIEN TS. Mixer Crane Operator ID - [id number] LCBC with platelet count + automated [id number] 06:35:00 Test Item Value Reference Range Interpretation Comments WBC (test code = 6690-2) 12.6 See_Comment H [A utomated message] The system [employer] generated this result transmitted ref erence range: 3.5 - 10 .5 K/L. The refe rence range was not u sed to interpret this result as normal/abnor mal. RBC (test code = 789-8) 3.22 See_Comment L [Au tomated message] The system [employer] generated this result transmitted ref erence range: 3.93 - 5 .22 M/L. The refe rence range was not u sed to interpret this result as normal/abnor mal. MCHC (test code = 786-4) 31.4 See_Comment L [A utomated message] The system [employer] generated this result transmitted ref erence range: 32.2 - 3 5.5 GM/DL. The refe rence range was not u sed to interpret this result as normal/abnor mal. Hematocrit (test code = 32.5 % 34.1-44.9 L 4544-3) MCV (test code = 787-2) 100.9 fL 79.4-94.8 H MCH (test code = 785-6) 31.7 pg 25.6-32.2 RDW (test code = 788-0) 15.5 % 11.7-14.4 H Platelets (test code = 450 See_Comment [Aut omated message] 777-3) The system [employer] generated this result transmitted ref erence range: 150 - 45 0 K/CU MM. The referen ce range was not u sed to interpret this result as normal/abnor mal. MPV (test code = 8.5 fL 9.4-12.3 L 82713-5) nRBC (test code = 413) 0 See_Comment [Aut omated message] The system [employer] generated this result transmitted ref erence range: 0 - 0 /1 00 WBC. The refere nce range was not u sed to interpret this result as normal/abnor mal. % Neutros (test code = 76 % 429) % Lymphs (test code = 14 % 430) % Monos (test code = 7 % 431) % Eos (test code = 432) 2 % % Baso (test code = 437) 0 % # Neutros (test code = 9.55 See_Comment H [Aut omated message] 670) The system [employer] generated this result transmitted ref erence range: 1.56 - 6 .13 K/L. The refe rence range was not u sed to interpret this result as normal/abnor mal. # Lymphs (test code = 1.78 See_Comment [Auto mated message] 414) The system [employer] generated this result transmitted ref erence range: 1.18 - 3 .74 K/L. The refe rence range was not u sed to interpret this result as normal/abnor mal. # Monos (test code = 0.91 See_Comment H [Autom ated message] 415) The system [employer] generated this result transmitted ref erence range: 0.24 - 0 .36 K/L. The refe rence range was not u sed to interpret this result as normal/abnor mal. # Eos (test code = 416) 0.29 See_Comment [Au tomated message] The system [employer] generated this result transmitted ref erence range: 0.04 - 0 .36 K/L. The refe rence range was not u sed to interpret this result as normal/abnor mal. # Baso (test code = 417) 0.04 See_Comment [A utomated message] The system [employer] generated this result transmitted ref erence range: 0.01 - 0 .08 K/L. The refe rence range was not u sed to interpret this result as normal/abnor mal. Immature 1 % 0-1 Granulocytes-Relative (test code = 2801) Lab Interpretation (test Abnormal code = 98286-1) [facility] [id number] 06:35:00 Test Item Value Reference Range Interpretation Comments POC-GLUCOSE METER 114 mg/dL 70-110 H : TESTED A T [facility] 6701 (BEAKER) (test code = [place], 1538) [address]: Mixer Crane Operator/Techni marielos ID = [id number] for OBLA GARVIN CBC W/PLT COUNT & AUTO [id number] 06:35:00 Test Item Value Reference Range Interpretation Comments WHITE BLOOD CELL COUNT (BEAKER) 12.6 K/ L 3.5-10.5 H (test code = 775) RED BLOOD CELL COUNT (BEAKER) 3.22 M/ L 3.93-5.22 L (test code = 761) HEMOGLOBIN (BEAKER) (test code = 10.2 GM/DL 11.2-15.7 L 410) HEMATOCRIT (BEAKER) (test code = 32.5 % 34.1-44.9 L 411) MEAN CORPUSCULAR VOLUME (BEAKER) 100.9 fL 79.4-94.8 H (test code = 753) MEAN CORPUSCULAR HEMOGLOBIN 31.7 pg 25.6-32.2 (BEAKER) (test code = 751) MEAN CORPUSCULAR HEMOGLOBIN CONC 31.4 GM/DL 32.2-35.5 L (BEAKER) (test code = 752) RED CELL DISTRIBUTION WIDTH 15.5 % 11.7-14.4 H (BEAKER) (test code = 412) PLATELET COUNT (BEAKER) (test 450 K/CU MM 150-450 code = 756) MEAN PLATELET VOLUME (BEAKER) 8.5 fL 9.4-12.3 L (test code = 754) NUCLEATED RED BLOOD CELLS 0 /100 WBC 0-0 (BEAKER) (test code = 413) NEUTROPHILS RELATIVE PERCENT 76 % (BEAKER) (test code = 429) LYMPHOCYTES RELATIVE PERCENT 14 % (BEAKER) (test code = 430) MONOCYTES RELATIVE PERCENT 7 % (BEAKER) (test code = 431) EOSINOPHILS RELATIVE PERCENT 2 % (BEAKER) (test code = 432) BASOPHILS RELATIVE PERCENT 0 % (BEAKER) (test code = 437) NEUTROPHILS ABSOLUTE COUNT 9.55 K/ L 1.56-6.13 H (BEAKER) (test code = 670) LYMPHOCYTES ABSOLUTE COUNT 1.78 K/ L 1.18-3.74 (BEAKER) (test code = 414) MONOCYTES ABSOLUTE COUNT (BEAKER) 0.91 K/ L 0.24-0.36 H (test code = 415) EOSINOPHILS ABSOLUTE COUNT 0.29 K/ L 0.04-0.36 (BEAKER) (test code = 416) BASOPHILS ABSOLUTE COUNT (BEAKER) 0.04 K/ L 0.01-0.08 (test code = 417) IMMATURE GRANULOCYTES-RELATIVE 1 % 0-1 PERCENT (BEAKER) (test code = 2801) POCT-GLUCOSE [id number] 00:53:00 Test Item Value Reference Range Interpretation Comments POC-GLUCOSE METER 112 mg/dL 70-110 H : TESTED A T [facility] 6720 (BEAKER) (test code = JOAN Haddad [facility], 1538) [address]: Mixer Crane Operator/Techni marielos ID = [id number] for BECKY LEON BOLA POCT-GLUCOSE [id number] 17:41:00 Test Item Value Reference Range Interpretation Comments POC-GLUCOSE METER 120 mg/dL 70-110 H : TESTED A T [facility] 6720 (BEAKER) (test code [facility], = 1538) [address]: Mixer Crane Operator/Techni marielos ID = [id number] for TSEG GALUNA HinesEREDA EEG AWAKE AND [id number] 16:01:00For STAT EEG- after 5 PM weekdays, weekends and holidays, page the on-call EEG TechReason for exam:->Altered mental status, waxing and waning neurological exam [facility] : 1945 Sex: FNEUROPHYSIOLOGY EEG REPORT DATES OF TEST: 01/17/21DATE OF REPORT: 01/17/21Name: Johnathon ArellanoMRN: [id number]: [id number] time: 14:51Stop time: 15:09WLO89: R56.9 CPT: 71021籄History: 75 yo female with history of HTN and AMSMedications: levetiracetam, modafinil, nimodipine, enoxaparin, famotidine, ipratropium-albuterol, cyanocobalaminTECHNICAL SUMMARY: This is a digital video- EEG recorded with 32 input channels reviewed with bipolar and referential montages using the modified combinatorial system nomenclature. DESCRIPTION OF RECORD: During a maximally stimulated state, there is no well defined posterior dominant rhythm. The background lacks a voltage or frequency gradient.It is represented by a moderate voltage 4-6 Hz and occasional 1-3 Hz frequencies. Spontaneous variability is preserved and the record is reactive to sensory stimulation applied by the glass technologist as evidenced by the predominance of faster frequency spectra following sensory stimulation. Sleep patterns were not recorded.Focal features:a. Focal background attenuation and slow1-3 hz activity, righthemisphereb. Intermittent focal slow 1-3 hz activity left temporal and occipital㰭Events: No electro-clinical or electrographic seizuresHyperventilation was not performed. PHOTIC STIMULATION:Photic stimulation across a broad frequency spectrum (1-33 Hz) did not trigger abnormal waveforms orresponses. ｋECG: Sinus rhythm IMPRESSION: Abnormal EEG in comac. Continuous slow, generalized , theta/delta range, reactived. Focal background attenuation and slow1-3 hz activity, right hemispheree. Intermittent focal slow 1-3 hz activity left temporal and occipitalCLINICAL CORRELATION:The c haracter of this background slowing as seen in this record indicates the presence of a moderate degree of encephalopathy that is non-specific in etiology. The focal background attenuation and slow activity in the right hemisphere indicates the presence of a focal lesion broadly affecting the right hemisphere. The intermittent focal slow activity affecting the left temporal and occipital regions indicates the presence of a focal dysfunction involving these regions. There were no epileptiform discharges and no electro-clinical or electrographic seizures observed during this recording.𖸺& #[id number];藐Melody Cisse MD, PhDEpilepsy Attending EEG AWAKE AND [id number] 16:01:00Interface, External Ris In - 01/17/2021 4:01 PM CDTNEUROPHYSIOLOGY EEG REPORT DATES OF TEST: 01/17/21DATE OF REPORT: 01/17/21Name: Sonu ArellanoMRN: [id number]: [id number] time: 14:51Stop time: 15:11OMU28: R56.9 CPT: 55115柳History: 75 yo female with history of HTN and AMSMedications: levetiracetam, modafinil, nimodipine, enoxaparin, famotidine, ipratropium-albuterol, cyanocobalaminTECHNICAL SUMMARY: This is a digital video-EEG recorded with 32 input channels reviewed with bipolarand referential montages using the modified combinatorial system nomenclature. DESCRIPTION OF RECORD: During a maximally stimulated state, there is no well defined posterior dominant rhythm. The background lacks a voltage or frequency gradient. It is represented by a moderate voltage 4-6 Hz and occasional 1-3 Hz frequencies. Spontaneous variability is preserved and the record is reactive to sensory stimulation applied by the glass technologist as evidenced by the predominance of faster frequency spectra following sensory stimulation. Sleep patterns were not recorded.Focal features:a. Focal backgroundattenuation and slow1-3 hz activity, right hemisphereb. Intermittent focal slow 1-3 hz activity lefttemporal and occipital渿Events: No electro-clinical or electrographic seizuresHyperventilation was not performed. PHOTIC STIMULATION: Photic stimulation across a broad frequency spectrum (1-33 Hz) did not trigger abnormal waveforms or responses. ĽECG: Sinus rhythm IMPRESSION: Abnor mal EEG in comac. Continuous slow, generalized , theta/delta range, reactived. Focal background attenuation and slow1-3 hz activity, right hemispheree. Intermittent focal slow 1-3 hz activity left temporal and occipitalCLINICAL CORRELATION:The character of this background slowing as seen in this record indicates the presence of a moderate degree of encephalopathy that is non- specific in etiology. Thefocal background attenuation and slow activity in the right hemisphere indicates the presence of a focal lesion broadly affecting the right hemisphere. The intermittent focal slow activity affecting the left temporal and occipital regions indicates the presence of a focal dysfunction involving these regions. There were no epileptiform discharges and no electro- clinical or electrographic seizures observed during this recording.먲𗧆Melody Cisse MD, PhDEpilepsy Attending [facility] HospitalUrinalysis w/Microscopic + Reflex to [id number] 15:09:00 Test Item Value Reference Range Interpretation Comments Color, UA (test code Light Yellow = 5778-6) Clarity, UA (test Clear code = 5767-9) Specific Lawrence, UA 1.021 1.001-1.035 (test code = 5811-5) pH, UA (test code = 6.0 5.0-8.0 5803-2) Protein, UA (test 20 mg/dL Negative A code = 25143-3) Glucose, UA (test Negative Negative code = 365) Ketones, UA (test Negative Negative code = 2514-8) Bilirubin, UA (test Negative Negative code = 56558-8) Blood, UA (test code Small Negative A = 16615-2) Nitrite, UA (test Positive Negative A code = 5802-4) Leukocytes, UA (test Large Negative A code = 5799-2) Urobilinogen, UA 0.2 mg/dL 0.2-1 (test code = 97746-1) RBC, UA (test code = 7 See_Comment [Autom ated 40949-5) message] The system which generated this result transmitted reference range : /HPF. The reference range was not used to interpret this result as normal/abnormal . WBC, UA (test code = 65 See_Comment [Autom ated 5821-4) message] The system which generated this result transmitted reference range : /HPF. The reference range was not used to interpret this result as normal/abnormal . Bacteria, UA (test Few code = 06976-1) Mucus (test code = Rare 8247-9) Squam Epithel, UA <1 See_Comment [Automate d (test code = 09841-1) messag e] The system which generated this result transmitted reference range : /HPF. The reference range was not used to interpret this result as normal/abnormal . Crystals, Urine (test None Seen code = 86721-0) Yeast (test code = Occasional 44500-1) Specimen Source (test code = 2795) NETTIE (test code = NETTIE) Mixer Crane Operator ID - [auto]Mixer Crane Operator ID - tech Lab Interpretation Abnormal (test code = 39722-2) [facility] Center[facility]FLEX URINE [id number] 15:09:00 Test Item Value Reference Range Interpretation Comments COLOR (BEAKER) (test code = 470) Light Yellow CLARITY (BEAKER) (test code = Clear 469) SPECIFIC GRAVITY UA (BEAKER) 1.021 1.001-1.035 (test code = 468) PH UA (BEAKER) (test code = 467) 6.0 5.0-8.0 PROTEIN UA (BEAKER) (test code = 20 mg/dL Negative A 464) GLUCOSE UA (BEAKER) (test code = Negative Negative 365) KETONES UA (BEAKER) (test code = Negative Negative 371) BILIRUBIN UA (BEAKER) (test code Negative Negative = 462) BLOOD UA (BEAKER) (test code = Small Negative A 461) NITRITE UA (BEAKER) (test code = Positive Negative A 465) LEUKOCYTE ESTERASE UA (BEAKER) Large Negative A (test code = 466) UROBILINOGEN UA (BEAKER) (test 0.2 mg/dL 0.2-1.0 code = 463) RBC UA (BEAKER) (test code = 7 /HPF 519) WBC UA (BEAKER) (test code = 65 /HPF 520) BACTERIA (BEAKER) (test code = Few 517) MUCUS (BEAKER) (test code = Rare 1574) SQUAMOUS EPITHELIAL (BEAKER) < /HPF (test code = 516) CRYSTALS, URINE (BEAKER) (test None Seen code = 1521) YEAST (BEAKER) (test code = Occasional 1585) SOURCE(BEAKER) (test code = 9975) Mixer Crane Operator ID - [auto]Mixer Crane Operator ID - techPOCT-GLUCOSE [id number] 12:38:00 Test Item Value Reference Range Interpretation Comments POC-GLUCOSE METER 119 mg/dL 70-110 H : TESTED A T [facility] 6720 (BEAKER) (test code [facility], = 1538) 85725: Mixer Crane Operator/Techni marielos ID = [id number] for TSEG ERICI, LINDAA CT, CTANGIO [id number] 12:18:00Unlisted Reason for Exam - Click Yes and Enter Reason Below->YesUnlisted Reason for Exam->SAH s/p clip, AMS [facility] : 1945 Sex: FAddendum BeginsREPORT STATUS:A 3-D reconstructions were added to PACS after the report was finalized. These do not significantly alter the interpretation. Signed: Andreea Carrilloe MDReport Verified Date/Time: 01/17/2021 12:18:02 Addendum EndsFINAL REPORT CLINICAL HISTORY: Unlisted Reason for ExamSAH s/p clip, AMS TECHNIQUE: Initially, noncontrast head CT images were performed. Contiguous contrast-enhanced axial images through the head with coronal and sagittal reformations to assess the arterial circulation. 3-D reconstructions were not available at time of interpretation. This exam was performed according to the departmental dose optimizationprogram which includes automated exposure control, adjustment of the mA and/or kV according to the patient size, and/or use of an iterative reconstruction technique. COMPARISON: CT 01/07/2021, CTA 01/06/2021 FINDINGS:Please note that CTA is inherently insensitive in evaluating the cavernous and skullbase portions of the internal carotid arteries because of adjacent bone and venous opacification. 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 Decreased extent of subarachnoid hemorrhage, with trace residual in the right anterior temporal and left occipital regions. Unchanged extent of right MCA territory infarct. No new site of hemorrhage or in farct. There is no hydrocephalus or midline shift. No major branch vessel occlusion or high-grade focal stenosis. Prior clipping of right MCA aneurysm with unchanged small residual neck in the anterior aspect. 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 The major intradural venous sinuses are un remarkable for phase of contrast. 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 Signed: Opal Carrillo Verified Date/Time: 01/16/2021 18:36:53 RAD, CHEST, 1 VIEW, NON [id number] 10:52:00Reason for exam:->amsShould this be performed at the bedside?->Yes [facility] : 1945 Sex: FFINAL REPORT INDICATION: ams COMPARISON: None TECHNIQUE: Single front al view of the chest. FINDINGS: Lungs and pleura: Right greater than left airspace diseaseHeart and mediastinum: Normal heart size. Unremarkable mediastinal contours.Osseous structures: No acute abnormality.Other: None. IMPRESSION: Right greater than left airspace disease concerning for pneumonia Signed: Ana Arreola Verified Date/Time: 01/17/2021 10:52:35 Reading Location: [facility] Radiology Reading Room XR chest 1 view portable / [id number] 10:52:00Interface, External Ris In - 01/17/2021 10:54 AM CDTFINAL REPORT INDICATION: ams COMPARISON: None TECHNIQUE: Single frontal view of the chest. FINDINGS: Lungs and pleura: Right greater than left airspace diseaseHeart and mediastinum: Normal heart size. Unremarkable mediastinal contours.Osseous structures: No acute abnormality.Other: None. IMPRESSION: Right greater than left airspace disease concerning for pneumonia Signed: Ana Arreola MDReport Verified Date/Time: 01/17/2021 10:52:35 Reading Location: [facility] Radiology [facility]2021-01-17 10:13:00 Test Item Value Reference Range Interpretation Comments SARS-COV2/RT-PCR (test Negative Not Detected, Negative, code = 9266454) See external report for linked test SARS-COV-2 PERFORMING LAB [facility] (test code = 0705638) Negative result for this test determines that SARS-CoV-2 RNA was not present in the specimen above the Limit of Detection (LOD). However, Negative results do not preclude SARS-CoV-2 infection and should not be used as the sole basis for treatment or patient management decisions. Negative results mustbe combined with clinical observations, patient history, and epidemiological information. A false negative result may occur if a specimen is improperly collected, transported or handled. A false negative result should be considered if patient's recent exposures or clinical presentation indicate that COVID-19 (SARS-CoV-2) is likely and diagnostic tests for other causes of illness are negative. Re-testing should be considered in cases of suspected false negatives.The limit of detection for this assay is 800 copies/mL.This SARS CoV-2 test is a real-time RT-PCR test intended for the qualitative detection of nucleic acid from SARS-CoV-2 in a nasopharyngeal swab specimen collected from individuals suspected of COVID-19 by their healthcare provider.This test has not been Food and Drug Administration (FDA) cleared or approved. This is a modified version of an approved Emergency Use Authorization (EUA) and is in the process of review by the FDA. Once authorized by the FDA, the issued EUA will be effective until the declaration that circumstances exist justifying the authorization of the emergency use of in vitro diagnostic tests for detection and/or diagnosis of COVID-19 is terminated under Section 564(b)(2) of the Act or the EUA is revoked under Section 564(g) of the Act.Fact Sheet for Healthcare Providers:https://www.[employer]/sites/default/files/product/documents/Fact_Shee w_DC_Uuiowbtpr_Main_OMYF-AlQ-3.pdfFact Sheet for Healthcare Patients:https://www.[employer]/sites/default/files/product/ documents/Beeh_Spsfy_Urhvuvqr_Qnek_WFMY-JxG-9.pdfPerforming Laboratory:[facility], [place] [address]Xrrkbu Differential 2021-01-17 09:59:00 Test Item Value Reference Range Interpretation Comments % Neutros (test code = 82 % 2816) % Lymphs (test code = 10 % 2817) % Monos (test code = 6 % 2818) % Eos (test code = 2819) 1 % % Bands (test code = 1 % 0-10 2826) # Neutros (test code = 7.54 K/ul 1.56-6.13 H 2830) # Lymphs (test code = 0.92 K/ul 1.18-3.74 L 2831) # Monos (test code = 0.55 K/uL 0.24-0.36 H 2832) # Eos (test code = 2834) 0.09 K/uL 0.04-0.36 # Bands (test code = 0.09 K/uL 0-0.8 2840) Total Counted (test code 100 = 1351) WBC Morphology (test Normal code = 487) Platelet Morphology Normal (test code = 486) Polychromasia (test code 1+ few = 478) Anisocytosis (test code 1+ few = 961) Macrocytes (test code = 1+ few 964) Artifact (test code = Present 3432) Platelet Conc (test code Increased = 3438) NETTIE (test code = NETTIE) Mixer Crane Operator ID - Margarita OverholtUser comments: Slide comments: Lab Interpretation (test Abnormal code = 31824-1) [facility] W/PLT COUNT & AUTO [id number] 09:59:00 Test Item Value Reference Range Interpretation Comments WHITE BLOOD CELL COUNT (BEAKER) 9.2 K/ L 3.5-10.5 (test code = 775) RED BLOOD CELL COUNT (BEAKER) 3.13 M/ L 3.93-5.22 L (test code = 761) HEMOGLOBIN (BEAKER) (test code = 9.9 GM/DL 11.2-15.7 L 410) HEMATOCRIT (BEAKER) (test code = 30.5 % 34.1-44.9 L 411) MEAN CORPUSCULAR VOLUME (BEAKER) 97.4 fL 79.4-94.8 H (test code = 753) MEAN CORPUSCULAR HEMOGLOBIN 31.6 pg 25.6-32.2 (BEAKER) (test code = 751) MEAN CORPUSCULAR HEMOGLOBIN CONC 32.5 GM/DL 32.2-35.5 (BEAKER) (test code = 752) RED CELL DISTRIBUTION WIDTH 15.7 % 11.7-14.4 H (BEAKER) (test code = 412) PLATELET COUNT (BEAKER) (test 475 K/CU MM 150-450 H code = 756) MEAN PLATELET VOLUME (BEAKER) 8.7 fL 9.4-12.3 L (test code = 754) NUCLEATED RED BLOOD CELLS 0 /100 WBC 0-0 (BEAKER) (test code = 413) (CELLAVISION MANUAL DIFF)2021-01-17 09:59:00 Test Item Value Reference Range Interpretation Comments NEUTROPHILS - REL 82 % (CELLAVISION)(BEAKER) (test code = 2816) LYMPHOCYTES - REL 10 % (CELLAVISION)(BEAKER) (test code = 2817) MONOCYTES - REL 6 % (CELLAVISION)(BEAKER) (test code = 2818) EOSINOPHILS - REL 1 % (CELLAVISION)(BEAKER) (test code = 2819) BANDS - REL (CELLAVISION)(BEAKER) 1 % 0-10 (test code = 2826) NEUTROPHILS - ABS 7.54 K/ul 1.56-6.13 H (CELLAVISION)(BEAKER) (test code = 2830) LYMPHOCYTES - ABS 0.92 K/ul 1.18-3.74 L (CELLAVISION)(BEAKER) (test code = 2831) MONOCYTES - ABS 0.55 K/uL 0.24-0.36 H (CELLAVISION)(BEAKER) (test code = 2832) EOSINOPHILS - ABS 0.09 K/uL 0.04-0.36 (CELLAVISION)(BEAKER) (test code = 2834) BANDS - ABS (CELLAVISION)(BEAKER) 0.09 K/uL 0.00-0.80 (test code = 2840) TOTAL COUNTED (BEAKER) (test code = 100 1351) WBC MORPHOLOGY (BEAKER) (test code Normal = 487) PLT MORPHOLOGY (BEAKER) (test code Normal = 486) POLYCHROMATOPHILLIC RBCS(BEAKER) 1+ few (test code = 478) ANISOCYTOSIS (BEAKER) (test code = 1+ few 961) MACROCYTES (BEAKER) (test code = 1+ few 964) ARTIFACT (CELLAVISION)(BEAKER) Present (test code = 3432) PLATELET CONCENTRATION Increased (CELLAVISION)(BEAKER) (test code = 3438) Mixer Crane Operator STEVE Avila OverholtUser comments: Slide comments:[id number] 07:02:00 Test Item Value Reference Range Interpretation Comments Magnesium (test code = 2.0 mg/dL 1.6-2.6 59239-3) NETTIE (test code = NETTIE) Mixer Crane Operator STEVE Wade Lab Interpretation (test Normal code = 02312-9) [facility] CenterPhosphorus2021-08-26 07:02:00 Test Item Value Reference Range Interpretation Comments Phosphorus (test code = 3.1 mg/dL 2.3-4.7 2777-1) NETTIE (test code = NETTIE) Mixer Crane Operator STEVE Wade Lab Interpretation (test Normal code = 01980-2) [facility] CenterBASIC METABOLIC [id number] 07:02:00 Test Item Value Reference Range Interpretation Comments SODIUM (BEAKER) 136 meq/L 136-145 (test code = 381) POTASSIUM (BEAKER) 3.7 meq/L 3.5-5.1 (test code = 379) CHLORIDE (BEAKER) 102 meq/L 98-107 (test code = 382) CO2 (BEAKER) (test 24 meq/L 22-29 code = 355) BLOOD UREA NITROGEN 18 mg/dL 7-21 (BEAKER) (test code = 354) CREATININE (BEAKER) 0.60 mg/dL 0.57-1.25 (test code = 358) GLUCOSE RANDOM 133 mg/dL 70-105 H (BEAKER) (test code = 652) CALCIUM (BEAKER) 8.9 mg/dL 8.4-10.2 (test code = 697) EGFR (BEAKER) (test 97 mL/min/1.73 ESTIMA ALEXANDRE GFR IS code = 1092) sq m NOT ACCURATE CREATININE CLEARANCE IN PREDICTING GLOMERULAR FILTRATION RATE . ESTIMATED GFR I S NOT APPLICABLE FOR DIALYSIS PATIEN TS. Mixer Crane Operator ID - BEN [id number] 07:02:00 Test Item Value Reference Range Interpretation Comments MAGNESIUM (BEAKER) (test code = 2.0 mg/dL 1.6-2.6 627) Mixer Crane Operator ID - BEN [id number] 07:02:00 Test Item Value Reference Range Interpretation Comments PHOSPHORUS (BEAKER) (test code = 3.1 mg/dL 2.3-4.7 604) Mixer Crane Operator ID - BEN MPOCT-GLUCOSE [id number] 05:38:00 Test Item Value Reference Range Interpretation Comments POC-GLUCOSE METER 155 mg/dL 70-110 H : TESTED A T [facility] 6720 (BEAKER) (test code = [facility], 1538) 14476: Mixer Crane Operator/Techni marielos ID = [id number] for BOLA GARVIN POCT-GLUCOSE [id number] 00:31:00 Test Item Value Reference Range Interpretation Comments POC-GLUCOSE METER 130 mg/dL 70-110 H : TESTED A T [facility] 6720 (BEAKER) (test code = [facility], 1538) 39046: Mixer Crane Operator/Techni marielos ID = [id number] for BOLA GARVIN CTA [id number] 18:36:00Interface, External Ris In - 01/17/2021 12:20 PM CDTAddendum BeginsREPORT STATUS:A 3-D reconstructions were added to PACS after the report was finalized. These do not significantly alter the interpretation. Signed: Opal Carrillo Verified Date/Time: 01/17/2021 12:18:02Addendum EndsFINAL REPORT CLINICAL HISTORY: Unlisted Reason for ExamSAH s/p clip, AMS TECHNIQUE: Initially, noncontrast head CT images were performed. Contiguous contrast-enhanced axial images through the head with coronal and sagittal reformations to assess the arterial circulation. 3-D reconstructions were not available at time of interpretation. This exam was performed according to the departmental dose optimization program which includes automated exposure control, adjustment of the mA and/or kV according to the patient size, and/or use of an iterative reconstruction technique. COMPARISON: CT 01/07/2021, CTA 01/06/2021 FINDINGS:Please note that CTA is inherently insensitive in evaluating the cavernous and skullbase portions of the internal carotid arteries because of adjacent bone and venous opacification. 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 Decreased extent of subarachnoid hemorrhage, with trace residual in the right anterior temporal and left occipital regions. Unchanged extent of right MCA territory infarct. No new site of hemorrhage or infarct. There is no hydrocephalus or midline shift. No major branch vessel occlusion or high-grade focal stenosis. Prior clipping of right MCA aneurysm with unchanged small residual neck in the anterior aspect. 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 The major intradural venous sinuses are unremarkable for phase of contrast. 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 Signed: Opal Carrilloort Verified Date/Time: 01/16/2021 18:36:53 [facility] HospitalPO[facility] [id number] 18:33:00 Test Item Value Reference Range Interpretation Comments POC-GLUCOSE METER 91 mg/dL 70-110 : TESTED A T [facility] 6720 (BEAKER) (test code = [facility], 1538) 51589: Mixer Crane Operator/Techni marielos ID = [id number] for Lucía Guajardo POCT-GLUCOSE [id number] 12:07:00 Test Item Value Reference Range Interpretation Comments POC-GLUCOSE METER 131 mg/dL 70-110 H : TESTED A T [facility] 6720 (BEAKER) (test code [facility], = 1538) 99776: Mixer Crane Operator/Techni marielos ID = [id number] for JUAN ANTONIO TOLBERT POCT-GLUCOSE [id number] 07:31:00 Test Item Value Reference Range Interpretation Comments POC-GLUCOSE METER 129 mg/dL 70-110 H : TESTED A T [facility] 6720 (BEAKER) (test code = [facility], 1538) 96758: Mixer Crane Operator/Techni marielos ID = [id number] for DE NNIS, PREETI BASIC METABOLIC [id number] 05:07:00 Test Item Value Reference Range Interpretation Comments SODIUM (BEAKER) 136 meq/L 136-145 (test code = 381) POTASSIUM (BEAKER) 3.2 meq/L 3.5-5.1 L (test code = 379) CHLORIDE (BEAKER) 102 meq/L 98-107 (test code = 382) CO2 (BEAKER) (test 26 meq/L 22-29 code = 355) BLOOD UREA NITROGEN 17 mg/dL 7-21 (BEAKER) (test code = 354) CREATININE (BEAKER) 0.64 mg/dL 0.57-1.25 (test code = 358) GLUCOSE RANDOM 141 mg/dL 70-105 H (BEAKER) (test code = 652) CALCIUM (BEAKER) 8.6 mg/dL 8.4-10.2 (test code = 697) EGFR (BEAKER) (test 90 mL/min/1.73 ESTIMA ALEXANDRE GFR IS code = 1092) sq m NOT ACCURATE CREATININE CLEARANCE IN PREDICTING GLOMERULAR FILTRATION RATE . ESTIMATED GFR I S NOT APPLICABLE FOR DIALYSIS PATIEN TS. Mixer Crane Operator ID - EYAD [id number] 05:07:00 Test Item Value Reference Range Interpretation Comments MAGNESIUM (BEAKER) (test code = 2.0 mg/dL 1.6-2.6 627) Mixer Crane Operator ID - EYAD [id number] 05:07:00 Test Item Value Reference Range Interpretation Comments PHOSPHORUS (BEAKER) (test code = 3.3 mg/dL 2.3-4.7 604) Mixer Crane Operator ID - EYAD LCBC W/PLT COUNT & AUTO [id number] 04:53:00 Test Item Value Reference Range Interpretation Comments WHITE BLOOD CELL COUNT (BEAKER) 6.8 K/ L 3.5-10.5 (test code = 775) RED BLOOD CELL COUNT (BEAKER) 2.89 M/ L 3.93-5.22 L (test code = 761) HEMOGLOBIN (BEAKER) (test code = 9.0 GM/DL 11.2-15.7 L 410) HEMATOCRIT (BEAKER) (test code = 28.9 % 34.1-44.9 L 411) MEAN CORPUSCULAR VOLUME (BEAKER) 100.0 fL 79.4-94.8 H (test code = 753) MEAN CORPUSCULAR HEMOGLOBIN 31.1 pg 25.6-32.2 (BEAKER) (test code = 751) MEAN CORPUSCULAR HEMOGLOBIN CONC 31.1 GM/DL 32.2-35.5 L (BEAKER) (test code = 752) RED CELL DISTRIBUTION WIDTH 15.2 % 11.7-14.4 H (BEAKER) (test code = 412) PLATELET COUNT (BEAKER) (test 488 K/CU MM 150-450 H code = 756) MEAN PLATELET VOLUME (BEAKER) 8.7 fL 9.4-12.3 L (test code = 754) NUCLEATED RED BLOOD CELLS 0 /100 WBC 0-0 (BEAKER) (test code = 413) NEUTROPHILS RELATIVE PERCENT 60 % (BEAKER) (test code = 429) LYMPHOCYTES RELATIVE PERCENT 28 % (BEAKER) (test code = 430) MONOCYTES RELATIVE PERCENT 9 % (BEAKER) (test code = 431) EOSINOPHILS RELATIVE PERCENT 3 % (BEAKER) (test code = 432) BASOPHILS RELATIVE PERCENT 0 % (BEAKER) (test code = 437) NEUTROPHILS ABSOLUTE COUNT 4.08 K/ L 1.56-6.13 (BEAKER) (test code = 670) LYMPHOCYTES ABSOLUTE COUNT 1.87 K/ L 1.18-3.74 (BEAKER) (test code = 414) MONOCYTES ABSOLUTE COUNT (BEAKER) 0.58 K/ L 0.24-0.36 H (test code = 415) EOSINOPHILS ABSOLUTE COUNT 0.18 K/ L 0.04-0.36 (BEAKER) (test code = 416) BASOPHILS ABSOLUTE COUNT (BEAKER) 0.03 K/ L 0.01-0.08 (test code = 417) IMMATURE GRANULOCYTES-RELATIVE 1 % 0-1 PERCENT (BEAKER) (test code = 2801) POCT-GLUCOSE [id number] 00:23:00 Test Item Value Reference Range Interpretation Comments POC-GLUCOSE METER 108 mg/dL 70-110 : TESTED A T [facility] 6720 (BEAKER) (test code = [facility], 1538) 96088: Mixer Crane Operator/Techni marielos ID = [id number] for DE NNIS, PREETI POCT-GLUCOSE [id number] 18:04:00 Test Item Value Reference Range Interpretation Comments POC-GLUCOSE METER 125 mg/dL 70-110 H : TESTED A T [facility] 6720 (BEAKER) (test code [facility], = 1538) 36184: Mixer Crane Operator/Techni marielos ID = [id number] for TSEG GAI, TSIGHEREDA POCT-GLUCOSE [id number] 12:25:00 Test Item Value Reference Range Interpretation Comments POC-GLUCOSE METER 107 mg/dL 70-110 : TESTED A T [facility] 6720 (BEAKER) (test code [facility], = 1538) 51188: Mixer Crane Operator/Techni marielos ID = [id number] for TSEG GAI, TSIGHEREDA BASIC METABOLIC [id number] 07:39:00 Test Item Value Reference Range Interpretation Comments SODIUM (BEAKER) 138 meq/L 136-145 (test code = 381) POTASSIUM (BEAKER) 3.4 meq/L 3.5-5.1 L (test code = 379) CHLORIDE (BEAKER) 104 meq/L 98-107 (test code = 382) CO2 (BEAKER) (test 25 meq/L 22-29 code = 355) BLOOD UREA NITROGEN 20 mg/dL 7-21 (BEAKER) (test code = 354) CREATININE (BEAKER) 0.60 mg/dL 0.57-1.25 (test code = 358) GLUCOSE RANDOM 99 mg/dL 70-105 (BEAKER) (test code = 652) CALCIUM (BEAKER) 8.2 mg/dL 8.4-10.2 L (test code = 697) EGFR (BEAKER) (test 97 mL/min/1.73 ESTIMA ALEXANDRE GFR IS code = 1092) sq m NOT ACCURATE CREATININE CLEARANCE IN PREDICTING GLOMERULAR FILTRATION RATE . ESTIMATED GFR I S NOT APPLICABLE FOR DIALYSIS PATIEN TS. Mixer Crane Operator ID - PIFAVIOLA [id number] 07:39:00 Test Item Value Reference Range Interpretation Comments MAGNESIUM (BEAKER) (test code = 2.2 mg/dL 1.6-2.6 627) Mixer Crane Operator ID - PIFAVIOLA [id number] 07:39:00 Test Item Value Reference Range Interpretation Comments PHOSPHORUS (BEAKER) (test code = 2.9 mg/dL 2.3-4.7 604) Mixer Crane Operator ID - EYAD LPOCT-GLUCOSE [id number] 07:04:00 Test Item Value Reference Range Interpretation Comments POC-GLUCOSE METER 101 mg/dL 70-110 : TESTED A T [facility] 6720 (BEAKER) (test code = JOAN Haddad [facility], 1538) 42545: Mixer Crane Operator/Techni marielos ID = [id number] for DE NNIS, PREETI CBC W/PLT COUNT & AUTO [id number] 05:55:00 Test Item Value Reference Range Interpretation Comments WHITE BLOOD CELL COUNT (BEAKER) 7.8 K/ L 3.5-10.5 (test code = 775) RED BLOOD CELL COUNT (BEAKER) 2.78 M/ L 3.93-5.22 L (test code = 761) HEMOGLOBIN (BEAKER) (test code = 8.8 GM/DL 11.2-15.7 L 410) HEMATOCRIT (BEAKER) (test code = 27.6 % 34.1-44.9 L 411) MEAN CORPUSCULAR VOLUME (BEAKER) 99.3 fL 79.4-94.8 H (test code = 753) MEAN CORPUSCULAR HEMOGLOBIN 31.7 pg 25.6-32.2 (BEAKER) (test code = 751) MEAN CORPUSCULAR HEMOGLOBIN CONC 31.9 GM/DL 32.2-35.5 L (BEAKER) (test code = 752) RED CELL DISTRIBUTION WIDTH 15.0 % 11.7-14.4 H (BEAKER) (test code = 412) PLATELET COUNT (BEAKER) (test 436 K/CU MM 150-450 code = 756) MEAN PLATELET VOLUME (BEAKER) 8.6 fL 9.4-12.3 L (test code = 754) NUCLEATED RED BLOOD CELLS 0 /100 WBC 0-0 (BEAKER) (test code = 413) NEUTROPHILS RELATIVE PERCENT 64 % (BEAKER) (test code = 429) LYMPHOCYTES RELATIVE PERCENT 26 % (BEAKER) (test code = 430) MONOCYTES RELATIVE PERCENT 7 % (BEAKER) (test code = 431) EOSINOPHILS RELATIVE PERCENT 2 % (BEAKER) (test code = 432) BASOPHILS RELATIVE PERCENT 0 % (BEAKER) (test code = 437) NEUTROPHILS ABSOLUTE COUNT 4.96 K/ L 1.56-6.13 (BEAKER) (test code = 670) LYMPHOCYTES ABSOLUTE COUNT 2.02 K/ L 1.18-3.74 (BEAKER) (test code = 414) MONOCYTES ABSOLUTE COUNT (BEAKER) 0.57 K/ L 0.24-0.36 H (test code = 415) EOSINOPHILS ABSOLUTE COUNT 0.16 K/ L 0.04-0.36 (BEAKER) (test code = 416) BASOPHILS ABSOLUTE COUNT (BEAKER) 0.02 K/ L 0.01-0.08 (test code = 417) IMMATURE GRANULOCYTES-RELATIVE 1 % 0-1 PERCENT (BEAKER) (test code = 2801) POCT-GLUCOSE [id number] 00:44:00 Test Item Value Reference Range Interpretation Comments POC-GLUCOSE METER 94 mg/dL 70-110 : TESTED A T [facility] 6720 (BEAKER) (test code = [facility], 153) 69094: Mixer Crane Operator/Techni marielos ID = [id number] for DENN IS, PREETI POCT-GLUCOSE [id number] 18:37:00 Test Item Value Reference Range Interpretation Comments POC-GLUCOSE METER 95 mg/dL 70-110 : TESTED A T [facility] 6720 (BEAKER) (test code = [facility], 153) 35356: Mixer Crane Operator/Techni marielos ID = [id number] for SANC HEZ, FRANSISCO SPUTUM CULTURE + GRAM [id number] 16:16:00 Test Item Value Reference Range Interpretation Comments CULTURE (BEAKER) (test SALMONELLA A 1+ Sa lmonella code = 1095) ENTERICA SSP enterica ssp [facility] Ampicillin (test code R = 26) Ceftriaxone (test code S = 52) Trimethoprim + S Sulfamethoxazole (test code = 47) Levofloxacin (test R code = 22) Levofloxacin (test code = 22) Trimethoprim + See_Comment S [Automated Sulfamethoxazole (test messa ge] The code = 47) system which generated this result transmitted reference range : Susceptible 0-4 0 , Resistant <0 or >40 . The reference range was not used to interpret this result as normal/abnormal . Levofloxacin (test R code = 22) GRAM STAIN RESULT <1+ WBCs (BEAKER) (test code = 1123) GRAM STAIN RESULT >25 epithelial (BEAKER) (test code = cells 534146) GRAM STAIN RESULT >25 epithelial (BEAKER) (test code = cells 108045) GRAM STAIN RESULT 1+ gram negative (BEAKER) (test code = rods 068145) GRAM STAIN RESULT <1+ gram (BEAKER) (test code = positive cocci 332368) in pairs 2+ Normal respiratory anjel [id number] 16:06:00 Test Item Value Reference Range Interpretation Comments Sodium (test code = 137 meq/L 311-904 4882-2) NETTIE (test code = NETTIE) Mixer Crane Operator ID - ADMIN Lab Interpretation (test Normal code = 29770-4) [facility] 16:06:00 Test Item Value Reference Range Interpretation Comments SODIUM (BEAKER) (test code = 381) 137 meq/L 136-145 Mixer Crane Operator ID - ADMINPOCT-GLUCOSE [id number] 11:46:00 Test Item Value Reference Range Interpretation Comments POC-GLUCOSE METER 113 mg/dL 70-110 H : TESTED A T [facility] 6720 (SiCortex) (test code = JOAN LONG ID, 1538) 38146: Mixer Crane Operator/Techni marielos ID = [id number] for SA BRENNANHEZ, FRANSISCO POCT-GLUCOSE [id number] 05:56:00 Test Item Value Reference Range Interpretation Comments POC-GLUCOSE METER 96 mg/dL 70-110 : TESTED A T [facility] 6720 (SiCortex) (test code = [facility], 1538) 98044: Mixer Crane Operator/Techni marielos ID = [id number] for BOLA ESTRADA BASIC METABOLIC [id number] 05:32:00 Test Item Value Reference Range Interpretation Comments SODIUM (BEAKER) 138 meq/L 136-145 (test code = 381) POTASSIUM (BEAKER) 3.6 meq/L 3.5-5.1 (test code = 379) CHLORIDE (BEAKER) 101 meq/L 98-107 (test code = 382) CO2 (BEAKER) (test 26 meq/L 22-29 code = 355) BLOOD UREA NITROGEN 22 mg/dL 7-21 H (BEAKER) (test code = 354) CREATININE (BEAKER) 0.62 mg/dL 0.57-1.25 (test code = 358) GLUCOSE RANDOM 103 mg/dL 70-105 (BEAKER) (test code = 652) CALCIUM (BEAKER) 8.8 mg/dL 8.4-10.2 (test code = 697) EGFR (BEAKER) (test 94 mL/min/1.73 ESTIMA ALEXANDRE GFR IS code = 1092) sq m NOT ACCURATE CREATININE CLEARANCE IN PREDICTING GLOMERULAR FILTRATION RATE . ESTIMATED GFR I S NOT APPLICABLE FOR DIALYSIS PATIEN TS. Mixer Crane Operator ID - [id number] 05:32:00 Test Item Value Reference Range Interpretation Comments MAGNESIUM (BEAKER) (test code = 2.2 mg/dL 1.6-2.6 627) Mixer Crane Operator ID - [id number] 05:32:00 Test Item Value Reference Range Interpretation Comments PHOSPHORUS (BEAKER) (test code = 3.5 mg/dL 2.3-4.7 604) Mixer Crane Operator ID - DBCBC W/PLT COUNT & AUTO [id number] 05:06:00 Test Item Value Reference Range Interpretation Comments WHITE BLOOD CELL COUNT (BEAKER) 8.1 K/ L 3.5-10.5 (test code = 775) RED BLOOD CELL COUNT (BEAKER) 2.90 M/ L 3.93-5.22 L (test code = 761) HEMOGLOBIN (BEAKER) (test code = 9.2 GM/DL 11.2-15.7 L 410) HEMATOCRIT (BEAKER) (test code = 28.5 % 34.1-44.9 L 411) MEAN CORPUSCULAR VOLUME (BEAKER) 98.3 fL 79.4-94.8 H (test code = 753) MEAN CORPUSCULAR HEMOGLOBIN 31.7 pg 25.6-32.2 (BEAKER) (test code = 751) MEAN CORPUSCULAR HEMOGLOBIN CONC 32.3 GM/DL 32.2-35.5 (BEAKER) (test code = 752) RED CELL DISTRIBUTION WIDTH 15.0 % 11.7-14.4 H (BEAKER) (test code = 412) PLATELET COUNT (BEAKER) (test 448 K/CU MM 150-450 code = 756) MEAN PLATELET VOLUME (BEAKER) 8.9 fL 9.4-12.3 L (test code = 754) NUCLEATED RED BLOOD CELLS 0 /100 WBC 0-0 (BEAKER) (test code = 413) NEUTROPHILS RELATIVE PERCENT 54 % (BEAKER) (test code = 429) LYMPHOCYTES RELATIVE PERCENT 35 % (BEAKER) (test code = 430) MONOCYTES RELATIVE PERCENT 6 % (BEAKER) (test code = 431) EOSINOPHILS RELATIVE PERCENT 4 % (BEAKER) (test code = 432) BASOPHILS RELATIVE PERCENT 0 % (BEAKER) (test code = 437) NEUTROPHILS ABSOLUTE COUNT 4.40 K/ L 1.56-6.13 (BEAKER) (test code = 670) LYMPHOCYTES ABSOLUTE COUNT 2.82 K/ L 1.18-3.74 (BEAKER) (test code = 414) MONOCYTES ABSOLUTE COUNT (BEAKER) 0.52 K/ L 0.24-0.36 H (test code = 415) EOSINOPHILS ABSOLUTE COUNT 0.29 K/ L 0.04-0.36 (BEAKER) (test code = 416) BASOPHILS ABSOLUTE COUNT (BEAKER) 0.02 K/ L 0.01-0.08 (test code = 417) IMMATURE GRANULOCYTES-RELATIVE 1 % 0-1 PERCENT (BEAKER) (test code = 2801) POCT-GLUCOSE [id number] 00:03:00 Test Item Value Reference Range Interpretation Comments POC-GLUCOSE METER 90 mg/dL 70-110 : TESTED Alanna Jarvis [facility] 6720 (BEAKER) (test code = [facility], 1538) 30042: Mixer Crane Operator/Techni marielos ID = [id number] for BOLA ESTRADA POCT-GLUCOSE [id number] 16:51:00 Test Item Value Reference Range Interpretation Comments POC-GLUCOSE METER 101 mg/dL 70-110 : TESTED A T [facility] 6720 (BEAKER) (test code = [facility], 1538) 72804: Mixer Crane Operator/Techni marielos ID = [id number] for An Colleen diaz Type and screen, [id number] 16:09:00 Test Item Value Reference Range Interpretation Comments ABO/RH AUTOMATED (BEAKER) (test B POSITIVE code = 2260) Ab Scrn (test code = 890-4) NEGATIVE [facility] 15:25:00 Test Item Value Reference Range Interpretation Comments SODIUM (BEAKER) (test code = 381) 137 meq/L 136-145 Mixer Crane Operator ID - DBPOCT-GLUCOSE [id number] 12:21:00 Test Item Value Reference Range Interpretation Comments POC-GLUCOSE METER 107 mg/dL 70-110 : TESTED A T [facility] 6720 (BEAKER) (test code = [facility], 1538) 96262: Mixer Crane Operator/Techni marielos ID = [id number] for An Shandra diaza POCT-GLUCOSE [id number] 05:31:00 Test Item Value Reference Range Interpretation Comments POC-GLUCOSE METER 103 mg/dL 70-110 : TESTED A T [facility] 6720 (BEAKER) (test code = [facility], 1538) 28401: Mixer Crane Operator/Techni marielos ID = [id number] for BOLA GARVIN BASIC METABOLIC [id number] 05:20:00 Test Item Value Reference Range Interpretation Comments SODIUM (BEAKER) 141 meq/L 136-145 (test code = 381) POTASSIUM (BEAKER) 3.9 meq/L 3.5-5.1 (test code = 379) CHLORIDE (BEAKER) 106 meq/L 98-107 (test code = 382) CO2 (BEAKER) (test 26 meq/L 22-29 code = 355) BLOOD UREA NITROGEN 24 mg/dL 7-21 H (BEAKER) (test code = 354) CREATININE (BEAKER) 0.58 mg/dL 0.57-1.25 (test code = 358) GLUCOSE RANDOM 99 mg/dL 70-105 (BEAKER) (test code = 652) CALCIUM (BEAKER) 8.9 mg/dL 8.4-10.2 (test code = 697) EGFR (BEAKER) (test 101 mL/min/1.73 ESTIM ATED GFR IS code = 1092) sq m NOT ACCURATE CREATININE CLEARANCE IN PREDICTING GLOMERULAR FILTRATION RATE . ESTIMATED GFR I S NOT APPLICABLE FOR DIALYSIS PATIEN TS. Mixer Crane Operator ID - CHRISTINA [id number] 05:20:00 Test Item Value Reference Range Interpretation Comments MAGNESIUM (BEAKER) (test code = 2.1 mg/dL 1.6-2.6 627) Mixer Crane Operator ID - CHRISTINA [id number] 05:20:00 Test Item Value Reference Range Interpretation Comments PHOSPHORUS (BEAKER) (test code = 2.9 mg/dL 2.3-4.7 604) Mixer Crane Operator ID - CHRISTINA WCBC W/PLT COUNT & AUTO [id number] 04:44:00 Test Item Value Reference Range Interpretation Comments WHITE BLOOD CELL COUNT (BEAKER) 9.1 K/ L 3.5-10.5 (test code = 775) RED BLOOD CELL COUNT (BEAKER) 2.52 M/ L 3.93-5.22 L (test code = 761) HEMOGLOBIN (BEAKER) (test code = 7.9 GM/DL 11.2-15.7 L 410) HEMATOCRIT (BEAKER) (test code = 25.1 % 34.1-44.9 L 411) MEAN CORPUSCULAR VOLUME (BEAKER) 99.6 fL 79.4-94.8 H (test code = 753) MEAN CORPUSCULAR HEMOGLOBIN 31.3 pg 25.6-32.2 (BEAKER) (test code = 751) MEAN CORPUSCULAR HEMOGLOBIN CONC 31.5 GM/DL 32.2-35.5 L (BEAKER) (test code = 752) RED CELL DISTRIBUTION WIDTH 14.8 % 11.7-14.4 H (BEAKER) (test code = 412) PLATELET COUNT (BEAKER) (test 390 K/CU MM 150-450 code = 756) MEAN PLATELET VOLUME (BEAKER) 8.8 fL 9.4-12.3 L (test code = 754) NUCLEATED RED BLOOD CELLS 0 /100 WBC 0-0 (BEAKER) (test code = 413) NEUTROPHILS RELATIVE PERCENT 56 % (BEAKER) (test code = 429) LYMPHOCYTES RELATIVE PERCENT 34 % (BEAKER) (test code = 430) MONOCYTES RELATIVE PERCENT 6 % (BEAKER) (test code = 431) EOSINOPHILS RELATIVE PERCENT 3 % (BEAKER) (test code = 432) BASOPHILS RELATIVE PERCENT 0 % (BEAKER) (test code = 437) NEUTROPHILS ABSOLUTE COUNT 5.12 K/ L 1.56-6.13 (BEAKER) (test code = 670) LYMPHOCYTES ABSOLUTE COUNT 3.09 K/ L 1.18-3.74 (BEAKER) (test code = 414) MONOCYTES ABSOLUTE COUNT (BEAKER) 0.51 K/ L 0.24-0.36 H (test code = 415) EOSINOPHILS ABSOLUTE COUNT 0.31 K/ L 0.04-0.36 (BEAKER) (test code = 416) BASOPHILS ABSOLUTE COUNT (BEAKER) 0.02 K/ L 0.01-0.08 (test code = 417) IMMATURE GRANULOCYTES-RELATIVE 1 % 0-1 PERCENT (BEAKER) (test code = 2801) POCT-GLUCOSE [id number] 23:57:00 Test Item Value Reference Range Interpretation Comments POC-GLUCOSE METER 125 mg/dL 70-110 H : TESTED A T [facility] 6720 (BEAKER) (test code = [facility], 1538) 16077: Mixer Crane Operator/Techni marielos ID = [id number] for BOLA GARVIN POCT-GLUCOSE [id number] 17:26:00 Test Item Value Reference Range Interpretation Comments POC-GLUCOSE METER 134 mg/dL 70-110 H : TESTED A T [facility] 6720 (BEAKER) (test code = [facility], 1538) 78607: Mixer Crane Operator/Techni marielos ID = [id number] for An Colleen diaz Blood Culture - Routine (Left Venipuncture)2021-01-12 16:00:00 Test Item Value Reference Range Interpretation Comments Result (test code = No growth in 5 days 6463-4) [facility] [id number] 16:00:00 Test Item Value Reference Range Interpretation Comments CULTURE (BEAKER) (test No growth in 5 days code = 1095) BLOOD [id number] 16:00:00 Test Item Value Reference Range Interpretation Comments CULTURE (BEAKER) (test No growth in 5 days code = 1095) Vancomycin level, [id number] 14:11:00 Test Item Value Reference Range Interpretation Comments Vancomycin Tr (test code = 19.6 ug/mL 10-20 4092-3) NETTIE (test code = NETTIE) Mixer Crane Operator ID - BEN M Lab Interpretation (test Normal code = 73295-7) [facility], [id number] 14:11:00 Test Item Value Reference Range Interpretation Comments VANCOMYCIN TROUGH (BEAKER) (test 19.6 ug/mL 10.0-20.0 code = 522) Mixer Crane Operator ID - BEN [id number] 14:07:00 Test Item Value Reference Range Interpretation Comments SODIUM (BEAKER) (test code = 381) 144 meq/L 136-145 Mixer Crane Operator ID - BEN MPOCT-GLUCOSE [id number] 12:10:00 Test Item Value Reference Range Interpretation Comments POC-GLUCOSE METER 121 mg/dL 70-110 H : TESTED A T [facility] 6720 (BEAKER) (test code = JOAN Haddad [facility], 1538) 08774: Mixer Crane Operator/Techni marielos ID = [id number] for An Colleen diaz CBC W/PLT COUNT & AUTO [id number] 10:58:00 Test Item Value Reference Range Interpretation Comments WHITE BLOOD CELL COUNT (BEAKER) 6.9 K/ L 3.5-10.5 (test code = 775) RED BLOOD CELL COUNT (BEAKER) 2.58 M/ L 3.93-5.22 L (test code = 761) HEMOGLOBIN (BEAKER) (test code = 8.0 GM/DL 11.2-15.7 L 410) HEMATOCRIT (BEAKER) (test code = 25.9 % 34.1-44.9 L 411) MEAN CORPUSCULAR VOLUME (BEAKER) 100.4 fL 79.4-94.8 H (test code = 753) MEAN CORPUSCULAR HEMOGLOBIN 31.0 pg 25.6-32.2 (BEAKER) (test code = 751) MEAN CORPUSCULAR HEMOGLOBIN CONC 30.9 GM/DL 32.2-35.5 L (BEAKER) (test code = 752) RED CELL DISTRIBUTION WIDTH 15.0 % 11.7-14.4 H (BEAKER) (test code = 412) PLATELET COUNT (BEAKER) (test 372 K/CU MM 150-450 code = 756) MEAN PLATELET VOLUME (BEAKER) 9.1 fL 9.4-12.3 L (test code = 754) NUCLEATED RED BLOOD CELLS 0 /100 WBC 0-0 (BEAKER) (test code = 413) (CELLAVISION MANUAL DIFF)2021-01-12 10:58:00 Test Item Value Reference Range Interpretation Comments NEUTROPHILS - REL 64 % (CELLAVISION)(BEAKER) (test code = 2816) LYMPHOCYTES - REL 29 % (CELLAVISION)(BEAKER) (test code = 2817) MONOCYTES - REL 1 % (CELLAVISION)(BEAKER) (test code = 2818) EOSINOPHILS - REL 1 % (CELLAVISION)(BEAKER) (test code = 2819) BASOPHILS - REL 4 % (CELLAVISION)(BEAKER) (test code = 2820) ATYPICAL LYMPHOCYTES - REL 1 % 0-0 H (CELLAVISION)(BEAKER) (test code = 2829) NEUTROPHILS - ABS 4.42 K/ul 1.56-6.13 (CELLAVISION)(BEAKER) (test code = 2830) LYMPHOCYTES - ABS 2.00 K/ul 1.18-3.74 (CELLAVISION)(BEAKER) (test code = 2831) MONOCYTES - ABS 0.07 K/uL 0.24-0.36 L (CELLAVISION)(BEAKER) (test code = 2832) EOSINOPHILS - ABS 0.07 K/uL 0.04-0.36 (CELLAVISION)(BEAKER) (test code = 2834) BASOPHILS - ABS 0.28 K/uL 0.01-0.08 H (CELLAVISION)(BEAKER) (test code = 2835) ATYPICAL LYMPHOCYTES - ABS 0.07 K/uL 0.00-0.00 H (CELLAVISION)(BEAKER) (test code = 2858) TOTAL COUNTED (BEAKER) (test code = 100 1351) GIANT PLATELETS (BEAKER) (test code Present = 313) LARGE PLT(BEAKER) (test code = Present 2156) DOHLE BODIES (BEAKER) (test code = Present 359) POLYCHROMATOPHILLIC RBCS(BEAKER) 1+ few (test code = 478) ANISOCYTOSIS (BEAKER) (test code = 1+ few 961) MICROCYTES (BEAKER) (test code = 1+ few 965) POIKILOCYTES (BEAKER) (test code = 1+ few 966) SPHEROCYTES (BEAKER) (test code = 1+ few 768) OVALOCYTES (BEAKER) (test code = 1+ few 477) TEAR DROP CELLS (BEAKER) (test code 1+ few = 481) ARTIFACT (CELLAVISION)(BEAKER) Present (test code = 3432) PLATELET CONCENTRATION Adequate (CELLAVISION)(BEAKER) (test code = 3438) Mixer Crane Operator ID - Anamaria Engel comments: Slide comments:POCT-GLUCOSE METER 2021-01-12 08:26:00 Test Item Value Reference Range Interpretation Comments POC-GLUCOSE METER 123 mg/dL 70-110 H : TESTED Alanna T [facility] 6720 (BEAKER) ([facility] = [facility], 1538) 74107: Mixer Crane Operator/Techni marielos ID = [id number] for An Colleen diaz BASIC METABOLIC [id number] 06:40:00 Test Item Value Reference Range Interpretation Comments SODIUM (BEAKER) 147 meq/L 136-145 H (test code = 381) POTASSIUM (BEAKER) 3.5 meq/L 3.5-5.1 (test code = 379) CHLORIDE (BEAKER) 115 meq/L 98-107 H (test code = 382) CO2 (BEAKER) (test 22 meq/L 22-29 code = 355) BLOOD UREA NITROGEN 25 mg/dL 7-21 H (BEAKER) (test code = 354) CREATININE (BEAKER) 0.61 mg/dL 0.57-1.25 (test code = 358) GLUCOSE RANDOM 118 mg/dL 70-105 H (BEAKER) (test code = 652) CALCIUM (BEAKER) 9.1 mg/dL 8.4-10.2 (test code = 697) EGFR (BEAKER) (test 96 mL/min/1.73 ESTIMA ALEXANDRE GFR IS code = 1092) sq m NOT ACCURATE CREATININE CLEARANCE IN PREDICTING GLOMERULAR FILTRATION RATE . ESTIMATED GFR I S NOT APPLICABLE FOR DIALYSIS PATIEN TS. Mixer Crane Operator ID - BEN [id number] 06:40:00 Test Item Value Reference Range Interpretation Comments MAGNESIUM (BEAKER) (test code = 2.1 mg/dL 1.6-2.6 627) Mixer Crane Operator ID - BEN [id number] 06:40:00 Test Item Value Reference Range Interpretation Comments PHOSPHORUS (BEAKER) (test code = 3.0 mg/dL 2.3-4.7 604) Mixer Crane Operator ID - BEN MPOCT-GLUCOSE [id number] 06:08:00 Test Item Value Reference Range Interpretation Comments POC-GLUCOSE METER 133 mg/dL 70-110 H : TESTED A T [facility] 6720 (BEAKER) (test code = [facility], 1538) [address]: Mixer Crane Operator/Techni marielos ID = [id number] for DE NNIS, PREETI POCT-GLUCOSE [id number] 23:53:00 Test Item Value Reference Range Interpretation Comments POC-GLUCOSE METER 110 mg/dL 70-110 : TESTED A T [facility] 6720 (BEAKER) (test code = [facility], 1538) [address]: Mixer Crane Operator/Techni marielos ID = [id number] for DE NNIS, PREETI ANG, INSERTION G TUBE, W/ [id number] 17:48:00 [facility] : 1945 Sex: FFINAL REPORT History: Intracranial hemorrhage, need for supplemental nutrition. PROCEDURE: Following informed written consent, the patient's anterior abdominal wall was prepped and draped in the usual sterile manner. Patient was given 1 mg IV Versed and 50 mcg IV fentanyl for conscious sedation and pain control. Vital signs were monitored and remained stable. Conscioussedation and continuous patient monitoring were provided by the attending radiologist and a registered nurse for 10 minutes during the procedure. Patient was also given 0.5 mg IV glucagon prior to the procedure. The stomach was insufflated under fluoroscopy through the existing nasogastric feeding tube. A safe window for percutaneous placement of the gastrostomy tube could not be identified secondary to gas-filled colon and splenic flexure overlying the gastric lumen. Therefore, the procedure was aborted. There were no immediate complications and the patient was discharged from the department in stable condition. FINDINGS: Spot images of the abdomen obtained following gastric insufflation demonstrate a gas and stool filled loop of colon, near the splenic flexure overlying the gastric lumen preventing safe placement of a percutaneous gastrostomy tube. IMPRESSION: 1. Unable to safely place percutaneous gastrostomy tube secondary to colon overlying access window. Therefore, the procedure was canceled. Suggest surgical consultation possible surgical tube placement if clinically indicated. Total f luoroscopy time: 1.4 minutes. Estimated total patient dose reported as (Ka,r): 30 mGy Signed: Bessie Lucas MDReport Verified Date/Time: 01/11/2021 17:48:55 Reading Location: [place] [address] Angio Body Reading Room IR G-Tube Insertion w/Fluoro 2021-01-11 17:48:00Interface, External Ris In - 01/11/2021 5:51 PM CDTFINAL REPORT History: Intracranial hemorrhage, need for supplemental nutrition. PROCEDURE: Following informed written consent,the patient's anterior abdominal wall was prepped and draped in the usual sterile manner. Patient was given 1 mg IV Versed and 50 mcg IV fentanyl for conscious sedation and pain control. Vital signs were monitored and remained stable. Conscious sedation and continuous patient monitoring were provided by the attending radiologist and a registered nurse for 10 minutes during the procedure. Patient was also given 0.5 mg IV glucagon prior to the procedure. The stomach was insufflated under fluoroscopy through the existing nasogastric feeding tube. A safe window for percutaneous placement of the gastrostomy tube could not be identified secondary to gas-filled colon and splenic flexure overlying the gastric lumen. Therefore, the procedure was aborted. There were no immediate complications and the patient was discharged from the department in stable condition. FINDINGS: Spot images of the abdomen obtained following gastric insufflation demonstrate a gas and stool filled loop of colon, near the splenicflexure overlying the gastric lumen preventing safe placement of a percutaneous gastrostomy tube. IMPRESSION: 1. Unable to safely place percutaneous gastrostomy tube secondary to colon overlying accesswindow. Therefore, the procedure was canceled. Suggest surgical consultation possible surgical tube placement if clinically indicated. Total fluoroscopy time: 1.4 minutes. Estimated total patient dose reported as (Ka,r): 30 mGy Signed: Bessie [place] Verified Date/Time: 01/11/2021 17:48:55 Reading Location: [place] [address] Angio Body [facility] [id number] 12:29:00 Test Item Value Reference Range Interpretation Comments POC-GLUCOSE METER 106 mg/dL 70-110 : TESTED A T [facility] 6720 (BEAKER) (test code [facility], = 1538) [address]: Mixer Crane Operator/Techni marielos ID = [id number] for JUAN ANTONIO TOLBERT PT/[id number] 10:43:00 Test Item Value Reference Interpretation Comments Range Protime (test code = 13.6 See_Comment [Autom ated 5902-2) message] The system which generated this result transmitted reference range : 11.9 - 14.2 seconds. The reference range was not used to interpret this result as normal/abnormal . INR (test code = 1.06 See_Comment [Automated 3321-6) message] The system which generated this result transmitted reference range : <=5.90. The reference range was not used to interpret this result as normal/abnormal . PTT (test code = 28.5 See_Comment [Automated 53426-8) message] The system which generated this result transmitted reference range : 22.5 - 36.0 seconds. The reference range was not used to interpret this result as normal/abnormal . NETTIE (test code = RECOMMENDED NETTIE) COUMADIN/WARFARIN INR THERAPY RANGESSTANDARD DOSE: 2.0 - 3.0 Includes: PROPHYLAXIS for venous thrombosis, systemic embolization; TREATMENT for venous thrombosis and/or pulmonary embolus.HIGH RISK: Target INR is 2.5-3.5 for patients with mechanical heart valves. Lab Interpretation Normal (test code = 17377-2) [id number] 10:43:00 Test Item Value Reference Range Interpretation Comments PROTIME (BEAKER) (test 13.6 seconds 11.9-14.2 code = 759) INR (BEAKER) (test 1.06 See_Comment [Automat ed code = 370) message] The sy stem which generated this result transmitted reference range : <=5.90. The reference range was not used to interpret this result as normal/abnormal . PARTIAL THROMBOPLASTIN 28.5 seconds 22.5-36.0 TIME (BEAKER) (test code = 760) RECOMMENDED COUMADIN/WARFARIN INR THERAPY RANGESSTANDARD DOSE: 2.0 - 3.0 Includes: PROPHYLAXIS forvenous thrombosis, systemic embolization; TREATMENT for venous thrombosis and/or pulmonary embolus.HIGH RISK: Target INR is 2.5-3.5 for patients with mechanical heart valves.CBC W/PLT COUNT & AUTO DIFFERENTIAL 2021-01-11 07:27:00 Test Item Value Reference Range Interpretation Comments WHITE BLOOD CELL COUNT (BEAKER) 7.9 K/ L 3.5-10.5 (test code = 775) RED BLOOD CELL COUNT (BEAKER) 2.55 M/ L 3.93-5.22 L (test code = 761) HEMOGLOBIN (BEAKER) (test code = 8.0 GM/DL 11.2-15.7 L 410) HEMATOCRIT (BEAKER) (test code = 25.7 % 34.1-44.9 L 411) MEAN CORPUSCULAR VOLUME (BEAKER) 100.8 fL 79.4-94.8 H (test code = 753) MEAN CORPUSCULAR HEMOGLOBIN 31.4 pg 25.6-32.2 (BEAKER) (test code = 751) MEAN CORPUSCULAR HEMOGLOBIN CONC 31.1 GM/DL 32.2-35.5 L (BEAKER) (test code = 752) RED CELL DISTRIBUTION WIDTH 15.0 % 11.7-14.4 H (BEAKER) (test code = 412) PLATELET COUNT (BEAKER) (test 389 K/CU MM 150-450 code = 756) MEAN PLATELET VOLUME (BEAKER) 9.0 fL 9.4-12.3 L (test code = 754) NUCLEATED RED BLOOD CELLS 0 /100 WBC 0-0 (BEAKER) (test code = 413) (CELLAVISION MANUAL DIFF)2021-01-11 07:27:00 Test Item Value Reference Range Interpretation Comments NEUTROPHILS - REL 59 % (CELLAVISION)(BEAKER) (test code = 2816) LYMPHOCYTES - REL 25 % (CELLAVISION)(BEAKER) (test code = 2817) MONOCYTES - REL 6 % (CELLAVISION)(BEAKER) (test code = 2818) EOSINOPHILS - REL 2 % (CELLAVISION)(BEAKER) (test code = 2819) BASOPHILS - REL 1 % (CELLAVISION)(BEAKER) (test code = 2820) BANDS - REL (CELLAVISION)(BEAKER) 4 % 0-10 (test code = 2826) ATYPICAL LYMPHOCYTES - REL 3 % 0-0 H (CELLAVISION)(BEAKER) (test code = 2829) NEUTROPHILS - ABS 4.66 K/ul 1.56-6.13 (CELLAVISION)(BEAKER) (test code = 2830) LYMPHOCYTES - ABS 1.98 K/ul 1.18-3.74 (CELLAVISION)(BEAKER) (test code = 2831) MONOCYTES - ABS 0.47 K/uL 0.24-0.36 H (CELLAVISION)(BEAKER) (test code = 2832) EOSINOPHILS - ABS 0.16 K/uL 0.04-0.36 (CELLAVISION)(BEAKER) (test code = 2834) BASOPHILS - ABS 0.08 K/uL 0.01-0.08 (CELLAVISION)(BEAKER) (test code = 2835) BANDS - ABS (CELLAVISION)(BEAKER) 0.32 K/uL 0.00-0.80 (test code = 2840) ATYPICAL LYMPHOCYTES - ABS 0.24 K/uL 0.00-0.00 H (CELLAVISION)(BEAKER) (test code = 2858) TOTAL COUNTED (BEAKER) (test code 100 = 1351) MANUAL NRBC PER 100 CELLS (BEAKER) 1 /100 WBC 0-0 H (test code = 1353) RBC MORPHOLOGY (BEAKER) (test code Normal = 762) WBC MORPHOLOGY (BEAKER) (test code Normal = 487) PLT MORPHOLOGY (BEAKER) (test code Normal = 486) ARTIFACT (CELLAVISION)(BEAKER) Present (test code = 3432) PLATELET CONCENTRATION Adequate (CELLAVISION)(BEAKER) (test code = 3438) Mixer Crane Operator ID Aida Avila OverholtUser comments: Slide comments:POCT-GLUCOSE METER 2021-01-11 06:34:00 Test Item Value Reference Range Interpretation Comments POC-GLUCOSE METER 132 mg/dL 70-110 H : TESTED A T [facility] 6720 (BEAKER) (test code = JOAN LONG ID, 1538) [address]: Mixer Crane Operator/Techni marielos ID = [id number] for DE NNIS, PREETI BASIC METABOLIC [id number] 06:32:00 Test Item Value Reference Range Interpretation Comments SODIUM (BEAKER) 151 meq/L 136-145 H (test code = 381) POTASSIUM (BEAKER) 3.4 meq/L 3.5-5.1 L (test code = 379) CHLORIDE (BEAKER) 120 meq/L 98-107 H (test code = 382) CO2 (BEAKER) (test 22 meq/L 22-29 code = 355) BLOOD UREA NITROGEN 28 mg/dL 7-21 H (BEAKER) (test code = 354) CREATININE (BEAKER) 0.61 mg/dL 0.57-1.25 (test code = 358) GLUCOSE RANDOM 109 mg/dL 70-105 H (BEAKER) (test code = 652) CALCIUM (BEAKER) 9.0 mg/dL 8.4-10.2 (test code = 697) EGFR (BEAKER) (test 96 mL/min/1.73 ESTIMA ALEXANDRE GFR IS code = 1092) sq m NOT ACCURATE CREATININE CLEARANCE IN PREDICTING GLOMERULAR FILTRATION RATE . ESTIMATED GFR I S NOT APPLICABLE FOR DIALYSIS PATIEN TS. Mixer Crane Operator ID - EYAD [id number] 06:32:00 Test Item Value Reference Range Interpretation Comments MAGNESIUM (BEAKER) (test code = 2.5 mg/dL 1.6-2.6 627) Mixer Crane Operator ID - EYAD [id number] 06:32:00 Test Item Value Reference Range Interpretation Comments PHOSPHORUS (BEAKER) (test code = 2.5 mg/dL 2.3-4.7 604) Mixer Crane Operator ID - EYAD [id number] 06:32:00 Test Item Value Reference Range Interpretation Comments SODIUM (BEAKER) (test code = 381) 151 meq/L 136-145 H POCT-GLUCOSE [id number] 00:17:00 Test Item Value Reference Range Interpretation Comments POC-GLUCOSE METER 120 mg/dL 70-110 H : TESTED A T [facility] 6720 (BEAKER) (test code = JOAN Haddad [facility], 1538) [address]: Mixer Crane Operator/Techni marielos ID = [id number] for DE NNIS, PREETI Clostridium difficile GDH [id number] 13:14:00 Test Item Value Reference Range Interpretation Comments C. Difficle Toxin Negative Negative (test code = 4400990225) C. Difficile GDH Negative Negative No indicati on of Antigen (test code = Clostri dium 6480381472) difficile infection and n o colonization. Discontinue enteric isolati on and therapy. NETTIE (test code = Testing performed NETTIE) by Alere Rapid Cassette Assay. For GDH, published sensitivity of the assay is 98.7% compared to cytotoxicity testing. For Toxin AB, published sensitivity is 87.8% and specificity 99.4% compared to cytotoxicity testing.Verificati on of kit performance was done by the [facility] prior to clinical use. Lab Interpretation Normal (test code = 76395-9) [facility] DIFFICILE [facility] [id number] 13:14:00 Test Item Value Reference Range Interpretation Comments CDT TOXIN (test code Negative Negative = 3148995879) CDT GDH ANTIGEN (test Negative Negative No ind ication of code = 2332010498) Clostridi um difficile infection and n o colonization. Discontinue ent barry isolation and t herapy. Testing performed by Alere Rapid Cassette Assay. For GDH, published sensitivity of the assay is 98.7% compared to cytotoxicity testing. For Toxin AB, published sensitivity is 87.8% and specificity 99.4% compared to cytotoxicity testing.Verification of kit performance was done by the [facility] prior to clinical use.BASIC METABOLIC [id number] 09:56:00 Test Item Value Reference Range Interpretation Comments SODIUM (BEAKER) 148 meq/L 136-145 H (test code = 381) POTASSIUM (BEAKER) 3.3 meq/L 3.5-5.1 L (test code = 379) CHLORIDE (BEAKER) 117 meq/L 98-107 H (test code = 382) CO2 (BEAKER) (test 21 meq/L 22-29 L code = 355) BLOOD UREA NITROGEN 32 mg/dL 7-21 H (BEAKER) (test code = 354) CREATININE (BEAKER) 0.63 mg/dL 0.57-1.25 (test code = 358) GLUCOSE RANDOM 125 mg/dL 70-105 H (BEAKER) (test code = 652) CALCIUM (BEAKER) 8.5 mg/dL 8.4-10.2 (test code = 697) EGFR (BEAKER) (test 92 mL/min/1.73 ESTIMA ALEXANDRE GFR IS code = 1092) sq m NOT ACCURATE CREATININE CLEARANCE IN PREDICTING GLOMERULAR FILTRATION RATE . ESTIMATED GFR I S NOT APPLICABLE FOR DIALYSIS PATIEN TS. Mixer Crane Operator ID - [id number] 09:56:00 Test Item Value Reference Range Interpretation Comments MAGNESIUM (BEAKER) (test code = 2.3 mg/dL 1.6-2.6 627) Mixer Crane Operator ID - [id number] 09:56:00 Test Item Value Reference Range Interpretation Comments PHOSPHORUS (BEAKER) (test code = 2.7 mg/dL 2.3-4.7 604) Mixer Crane Operator ID - ABNERVANCOMYCIN LEVEL, [id number] 09:05:00 Test Item Value Reference Range Interpretation Comments VANCOMYCIN TROUGH (BEAKER) (test 26.2 ug/mL 10.0-20.0 H code = 522) Mixer Crane Operator ID - LALOSONCBC W/PLT COUNT & AUTO [id number] 08:45:00 Test Item Value Reference Range Interpretation Comments WHITE BLOOD CELL COUNT (BEAKER) 6.3 K/ L 3.5-10.5 (test code = 775) RED BLOOD CELL COUNT (BEAKER) 2.50 M/ L 3.93-5.22 L (test code = 761) HEMOGLOBIN (BEAKER) (test code = 7.7 GM/DL 11.2-15.7 L 410) HEMATOCRIT (BEAKER) (test code = 25.1 % 34.1-44.9 L 411) MEAN CORPUSCULAR VOLUME (BEAKER) 100.4 fL 79.4-94.8 H (test code = 753) MEAN CORPUSCULAR HEMOGLOBIN 30.8 pg 25.6-32.2 (BEAKER) (test code = 751) MEAN CORPUSCULAR HEMOGLOBIN CONC 30.7 GM/DL 32.2-35.5 L (BEAKER) (test code = 752) RED CELL DISTRIBUTION WIDTH 15.1 % 11.7-14.4 H (BEAKER) (test code = 412) PLATELET COUNT (BEAKER) (test 367 K/CU MM 150-450 code = 756) MEAN PLATELET VOLUME (BEAKER) 9.2 fL 9.4-12.3 L (test code = 754) NUCLEATED RED BLOOD CELLS 0 /100 WBC 0-0 (BEAKER) (test code = 413) NEUTROPHILS RELATIVE PERCENT 54 % (BEAKER) (test code = 429) LYMPHOCYTES RELATIVE PERCENT 32 % (BEAKER) (test code = 430) MONOCYTES RELATIVE PERCENT 9 % (BEAKER) (test code = 431) EOSINOPHILS RELATIVE PERCENT 5 % (BEAKER) (test code = 432) BASOPHILS RELATIVE PERCENT 0 % (BEAKER) (test code = 437) NEUTROPHILS ABSOLUTE COUNT 3.44 K/ L 1.56-6.13 (BEAKER) (test code = 670) LYMPHOCYTES ABSOLUTE COUNT 2.02 K/ L 1.18-3.74 (BEAKER) (test code = 414) MONOCYTES ABSOLUTE COUNT (BEAKER) 0.56 K/ L 0.24-0.36 H (test code = 415) EOSINOPHILS ABSOLUTE COUNT 0.29 K/ L 0.04-0.36 (BEAKER) (test code = 416) BASOPHILS ABSOLUTE COUNT (BEAKER) 0.01 K/ L 0.01-0.08 (test code = 417) IMMATURE GRANULOCYTES-RELATIVE 0 % 0-1 PERCENT (BEAKER) (test code = 2801) POCT-GLUCOSE [id number] 06:14:00 Test Item Value Reference Range Interpretation Comments POC-GLUCOSE METER 128 mg/dL 70-110 H : Notified RN/MD: (NAZARIO) (test code = TESTED AT [facility] 6720 1538) [facility], [address]: Mixer Crane Operator/Techni marielos ID = [id number] for DO VE, CHEKARA POCT-GLUCOSE [id number] 23:35:00 Test Item Value Reference Range Interpretation Comments POC-GLUCOSE METER 120 mg/dL 70-110 H : Notified RN/MD: (SHANEREGINA) (test code = TESTED AT [facility] 6720 1538) [facility], [address]: Mixer Crane Operator/Techni marielos ID = [id number] for DO VE, CHEKARA SARS-COV2/RT-PCR ([facility])2021-01-09 23:13:00 Test Item Value Reference Range Interpretation Comments SARS-COV2/RT-PCR (test Negative Not Detected, Negative, code = 6839586) See external report for linked test SARS-COV-2 PERFORMING LAB [facility] RIANNA (test code = 7718916) Negative result for this test determines that SARS-CoV-2 RNA was not present in the specimen above the Limit of Detection (LOD). However, Negative results do not preclude SARS-CoV-2 infection and should not be used as the sole basis for treatment or patient management decisions. Negative results mustbe combined with clinical observations, patient history, and epidemiological information. A false negative result may occur if a specimen is improperly collected, transported or handled. A false negative result should be considered if patient's recent exposures or clinical presentation indicate that COVID-19 (SARS-CoV-2) is likely and diagnostic tests for other causes of illness are negative. Re-testing should be considered in cases of suspected false negatives.The limit of detection for this assay is 800 copies/mL.This SARS CoV-2 test is a real-time RT-PCR test intended for the qualitative detection of nucleic acid from SARS-CoV-2 in a nasopharyngeal swab specimen collected from individuals susp ected of COVID-19 by their healthcare provider.This test has not been Food and Drug Administration (FDA) cleared or approved. This is a modified version of an approved Emergency Use Authorization (EUA) and is in the process of review by the FDA. Once authorized by the FDA, the issued EUA will be effective until the declaration that circumstances exist justifying the authorization of the emergency use of in vitro diagnostic tests for detection and/or diagnosis of COVID-19 is terminated under Section 564(b)(2) of the Act or the EUA is revoked under Section 564(g) of the Act.Fact Sheet for Healthcare Providers:https://www.[employer]/sites/default/files/product/documents/Fact_Shee f_OL_Bglcjbvuk_Jwak_URSK-UgC-7.pdfFact Sheet for Healthcare Patients:https://www.[employer]/sites/default/files/product/ documents/Ejnl_Bbxlf_Pvuykhtj_Hpyp_AXKH-JgS-4.pdfPerforming Laboratory:[facility], [place] [id number] 16:18:00 Test Item Value Reference Range Interpretation Comments SODIUM (BEAKER) (test code = 381) 149 meq/L 136-145 H Mixer Crane Operator ID - BSPOCT-GLUCOSE [id number] 16:10:00 Test Item Value Reference Range Interpretation Comments POC-GLUCOSE METER 95 mg/dL 70-110 : TESTED A T [facility] 6720 (BEAKER) (test code = JOAN Haddad [facility], 1538) [address]: Mixer Crane Operator/Techni marielos ID = [id number] for CERV ANTEFany, MICHELLE BASIC METABOLIC [id number] 03:37:00 Test Item Value Reference Range Interpretation Comments SODIUM (BEAKER) 146 meq/L 136-145 H (test code = 381) POTASSIUM (BEAKER) 3.4 meq/L 3.5-5.1 L (test code = 379) CHLORIDE (BEAKER) 115 meq/L 98-107 H (test code = 382) CO2 (BEAKER) (test 20 meq/L 22-29 L code = 355) BLOOD UREA NITROGEN 29 mg/dL 7-21 H (BEAKER) (test code = 354) CREATININE (BEAKER) 0.65 mg/dL 0.57-1.25 (test code = 358) GLUCOSE RANDOM 129 mg/dL 70-105 H (BEAKER) (test code = 652) CALCIUM (BEAKER) 8.7 mg/dL 8.4-10.2 (test code = 697) EGFR (BEAKER) (test 89 mL/min/1.73 ESTIMA ALEXANDRE GFR IS code = 1092) sq m NOT ACCURATE CREATININE CLEARANCE IN PREDICTING GLOMERULAR FILTRATION RATE . ESTIMATED GFR I S NOT APPLICABLE FOR DIALYSIS PATIEN TS. Mixer Crane Operator ID - CHRISTINA [id number] 03:37:00 Test Item Value Reference Range Interpretation Comments MAGNESIUM (BEAKER) (test code = 2.1 mg/dL 1.6-2.6 627) Mixer Crane Operator ID - CHRISTINA [id number] 03:37:00 Test Item Value Reference Range Interpretation Comments PHOSPHORUS (BEAKER) (test code = 2.4 mg/dL 2.3-4.7 604) Mixer Crane Operator ID - CHRISTINA WCBC W/PLT COUNT & AUTO [id number] 03:20:00 Test Item Value Reference Range Interpretation Comments WHITE BLOOD CELL COUNT 16.0 K/ L 3.5-10.5 H (BEAKER) (test code = 775) RED BLOOD CELL COUNT 2.68 M/ L 3.93-5.22 L (BEAKER) (test code = 761) HEMOGLOBIN (BEAKER) 8.6 GM/DL 11.2-15.7 L (test code = 410) HEMATOCRIT (BEAKER) 27.9 % 34.1-44.9 L (test code = 411) MEAN CORPUSCULAR 104.1 fL 79.4-94.8 H Discordant with VOLUME (BEAKER) (test previo us code = 753) result,clinical correlation is required. MEAN CORPUSCULAR 32.1 pg 25.6-32.2 HEMOGLOBIN (BEAKER) (test code = 751) MEAN CORPUSCULAR 30.8 GM/DL 32.2-35.5 L HEMOGLOBIN CONC (BEAKER) (test code = 752) RED CELL DISTRIBUTION 15.4 % 11.7-14.4 H WIDTH (BEAKER) (test code = 412) PLATELET COUNT 363 K/CU MM 150-450 (BEAKER) (test code = 756) MEAN PLATELET VOLUME 9.0 fL 9.4-12.3 L (BEAKER) (test code = 754) NUCLEATED RED BLOOD 0 /100 WBC 0-0 CELLS (BEAKER) (test code = 413) NEUTROPHILS RELATIVE 86 % PERCENT (BEAKER) (test code = 429) LYMPHOCYTES RELATIVE 9 % PERCENT (BEAKER) (test code = 430) MONOCYTES RELATIVE 3 % PERCENT (BEAKER) (test code = 431) EOSINOPHILS RELATIVE 1 % PERCENT (BEAKER) (test code = 432) BASOPHILS RELATIVE 0 % PERCENT (BEAKER) (test code = 437) NEUTROPHILS ABSOLUTE 13.71 K/ L 1.56-6.13 H COUNT (BEAKER) (test code = 670) LYMPHOCYTES ABSOLUTE 1.46 K/ L 1.18-3.74 COUNT (BEAKER) (test code = 414) MONOCYTES ABSOLUTE 0.50 K/ L 0.24-0.36 H COUNT (BEAKER) (test code = 415) EOSINOPHILS ABSOLUTE 0.08 K/ L 0.04-0.36 COUNT (BEAKER) (test code = 416) BASOPHILS ABSOLUTE 0.04 K/ L 0.01-0.08 COUNT (BEAKER) (test code = 417) IMMATURE 1 % 0-1 GRANULOCYTES-RELATIVE PERCENT (BEAKER) (test code = 2801) [id number] 17:53:00 Test Item Value Reference Range Interpretation Comments SODIUM (BEAKER) (test code = 381) 145 meq/L 136-145 Mixer Crane Operator ID - corby eRAD, CHEST, 1 VIEW, NON [id number] 14:24:00Reason for exam:->ptxShould this be performed at the bedside?->Yes [facility] : 1945 Sex: FFINAL REPORT CLINICAL HISTORY: ptx TECHNIQUE: 1 view of the chest. CO MPARISON: 01/07/2021 IMPRESSION: A feeding tube again extends below the diaphragm. As before, there is no evidence for pneumothorax. Left basilar atelectasis is again seen. There is no significant appearing pleural fluid or cardiomegaly. Signed: Griselda Mcconnell MDReport Verified Date/Time: 01/08/2021 14: 24:27 Reading Location: [facility] Radiology Reading Room URINALYSIS W/ REFLEX URINE [id number] 13:12:00 Test Item Value Reference Range Interpretation Comments COLOR (BEAKER) (test code = 470) Yellow CLARITY (BEAKER) (test code = 469) Clear SPECIFIC GRAVITY UA (BEAKER) (test 1.035 1.001-1.035 code = 468) PH UA (BEAKER) (test code = 467) 5.5 5.0-8.0 PROTEIN UA (BEAKER) (test code = 70 mg/dL Negative A 464) GLUCOSE UA (BEAKER) (test code = Negative Negative 365) KETONES UA (BEAKER) (test code = Negative Negative 371) BILIRUBIN UA (BEAKER) (test code = Negative Negative 462) BLOOD UA (BEAKER) (test code = 461) Small Negative A NITRITE UA (BEAKER) (test code = Negative Negative 465) LEUKOCYTE ESTERASE UA (BEAKER) Negative Negative (test code = 466) UROBILINOGEN UA (BEAKER) (test code 0.2 mg/dL 0.2-1.0 = 463) RBC UA (BEAKER) (test code = 519) 5 /HPF WBC UA (BEAKER) (test code = 520) 1 /HPF BACTERIA (BEAKER) (test code = 517) None Seen MUCUS (BEAKER) (test code = 1574) Rare CRYSTALS, URINE (BEAKER) (test code None Seen = 1521) SOURCE(BEAKER) (test code = 2795) Mixer Crane Operator ID - [auto]Mixer Crane Operator ID - tech(CELLAVISION MANUAL DIFF)2021-01-08 09:19:00 Test Item Value Reference Range Interpretation Comments NEUTROPHILS - REL 96 % (CELLAVISION)(BEAKER) (test code = 2816) LYMPHOCYTES - REL 3 % (CELLAVISION)(BEAKER) (test code = 2817) BASOPHILS - REL 1 % (CELLAVISION)(BEAKER) (test code = 2820) NEUTROPHILS - ABS 22.66 K/ul 1.56-6.13 H (CELLAVISION)(BEAKER) (test code = 2830) LYMPHOCYTES - ABS 0.71 K/ul 1.18-3.74 L (CELLAVISION)(BEAKER) (test code = 2831) BASOPHILS - ABS 0.24 K/uL 0.01-0.08 H (CELLAVISION)(BEAKER) (test code = 2835) TOTAL COUNTED (BEAKER) (test code 100 = 1351) WBC MORPHOLOGY (BEAKER) (test code Normal = 487) PLT MORPHOLOGY (BEAKER) (test code Normal = 486) POLYCHROMATOPHILLIC RBCS(BEAKER) 1+ few (test code = 478) ANISOCYTOSIS (BEAKER) (test code = 1+ few 961) MACROCYTES (BEAKER) (test code = 1+ few 964) ARTIFACT (CELLAVISION)(BEAKER) Present (test code = 3432) PLATELET CONCENTRATION Adequate (CELLAVISION)(BEAKER) (test code = 3438) Mixer Crane Operator ID - Louise Ramires comments: Slide comments:Transcranial Doppler Complete (TCD)2021-01-08 08:52:55Barry Funes MD 01/09/2021 1:31 [facility]- Transcranial Doppler Report Date: 01/07/21 Referring physician: MD Juan Indication: aSAH Maximal estimated mean bloodflow velocities (cm / sec): R EC ICA 43 L EC ICA 28 R Ophthalmic L Ophthalmic R MCA 42 R PABLO 18 R ICA R GELATIN POWDER MIXER 31 L MCA 47 L PABLO 42 L ICA L GELATIN POWDER MIXER 31 R vertebral 27 L vertebral 44 Basilar 30 [place] (R MCA:R ECICA) 0.97 [place] (L MCA:L ECICA) 1.85 Post bleed day #: 11 Velocity Range Thompson Elevatedvelocity = 90 - 119 cm/sec Mild vasospasm = 120 - 159 cm/sec Moderate vasospasm = 160 - 199 cm/sec Severe vasospasm = ? 200 cm/sec Interpretation:Velocities within normal ranges. No concern for vasos pasm.Clinical Correlation is recommended. I interpreted procedure Chele Farah Professor of [facility]rologyN[facility] W/PLT COUNT & AUTO [id number] 03:57:00 Test Item Value Reference Range Interpretation Comments WHITE BLOOD CELL COUNT 23.6 K/ L 3.5-10.5 H (BEAKER) (test code = 775) RED BLOOD CELL COUNT 2.77 M/ L 3.93-5.22 L (BEAKER) (test code = 761) HEMOGLOBIN (BEAKER) 8.9 GM/DL 11.2-15.7 L (test code = 410) HEMATOCRIT (BEAKER) 27.6 % 34.1-44.9 L (test code = 411) MEAN CORPUSCULAR 99.6 fL 79.4-94.8 H Discordant with VOLUME (BEAKER) (test previo us code = 753) result.clinical correlation is required MEAN CORPUSCULAR 32.1 pg 25.6-32.2 HEMOGLOBIN (BEAKER) (test code = 751) MEAN CORPUSCULAR 32.2 GM/DL 32.2-35.5 HEMOGLOBIN CONC (BEAKER) (test code = 752) RED CELL DISTRIBUTION 15.4 % 11.7-14.4 H WIDTH (BEAKER) (test code = 412) PLATELET COUNT 391 K/CU MM 150-450 Discordant wi th (BEAKER) (test code = previo us 756) result.clinical correlation is required MEAN PLATELET VOLUME 8.5 fL 9.4-12.3 L (BEAKER) (test code = 754) NUCLEATED RED BLOOD 0 /100 WBC 0-0 CELLS (BEAKER) (test code = 413) BASIC METABOLIC [id number] 03:43:00 Test Item Value Reference Range Interpretation Comments SODIUM (BEAKER) 143 meq/L 136-145 (test code = 381) POTASSIUM (BEAKER) 4.1 meq/L 3.5-5.1 (test code = 379) CHLORIDE (BEAKER) 111 meq/L 98-107 H (test code = 382) CO2 (BEAKER) (test 21 meq/L 22-29 L code = 355) BLOOD UREA NITROGEN 32 mg/dL 7-21 H (BEAKER) (test code = 354) CREATININE (BEAKER) 0.39 mg/dL 0.57-1.25 L (test code = 358) GLUCOSE RANDOM 126 mg/dL 70-105 H (BEAKER) (test code = 652) CALCIUM (BEAKER) 8.6 mg/dL 8.4-10.2 (test code = 697) EGFR (BEAKER) (test 160 mL/min/1.73 ESTIM ATED GFR IS code = 1092) sq m NOT ACCURATE CREATININE CLEARANCE IN PREDICTING GLOMERULAR FILTRATION RATE . ESTIMATED GFR I S NOT APPLICABLE FOR DIALYSIS PATIEN TS. [employer]er Crane Operator ID - BEN [id number] 03:43:00 Test Item Value Reference Range Interpretation Comments MAGNESIUM (BEAKER) (test code = 2.3 mg/dL 1.6-2.6 627) Mixer Crane Operator ID - BEN [id number] 03:43:00 Test Item Value Reference Range Interpretation Comments PHOSPHORUS (BEAKER) (test code = 3.3 mg/dL 2.3-4.7 604) Mixer Crane Operator ID - BEN [id number] 21:42:00 Test Item Value Reference Range Interpretation Comments Procalcitonin (test code = 0.32 ng/mL <0.05 H 18008-0) NETTIE (test code = NETTIE) SEPSIS RISK (ng/mL)Low: 0.05-0.50Intermedi ate: 0.51-2.00High: >=2.01 Lab Interpretation (test Abnormal code = 61625-5) [id number] 21:42:00 Test Item Value Reference Range Interpretation Comments PROCALCITONIN (BEAKER) (test code 0.32 ng/mL <0.05 H = 3036) SEPSIS RISK (ng/mL)Low: 0.05-0.50Intermediate: 0.51-2.00High: >=[id number] 15:43:00 Test Item Value Reference Range Interpretation Comments MAGNESIUM (BEAKER) (test code = 2.1 mg/dL 1.6-2.6 627) Mixer Crane Operator ID - [id number] 15:43:00 Test Item Value Reference Range Interpretation Comments PHOSPHORUS (BEAKER) (test code = 3.0 mg/dL 2.3-4.7 604) Mixer Crane Operator ID - CORAComprehensive metabolic [id number] 14:31:00 Test Item Value Reference Range Interpretation Comments Protein, Total (test 6.3 See_Comment [Autom ated code = 2885-2) message] The system which generated this result transmit alexandre reference range : 6.0 - 8.3 gm/dL . The reference range was not u sed to interpret th is result as normal/abnormal . Albumin (test code = 3.5 g/dL 3.5-5 20455-1) Alkaline Phosphatase 292 U/L 40-150 H (test code = 6768-6) Total Bilirubin (test 0.4 mg/dL 0.2-1.2 code = 1974-2) Sodium (test code = 143 meq/L 630-896 8888-2) Potassium (test code 3.4 meq/L 3.5-5.1 L = 2823-3) Chloride (test code = 108 meq/L 98-107 H 2075-0) CO2 (test code = 24 meq/L 22-29 8-9) BUN (test code = 24 mg/dL 7-21 H 3094-0) Creatinine (test code 0.62 mg/dL 0.57-1.25 = 2160-0) Glucose (test code = 131 mg/dL 70-105 H 2345-7) Calcium (test code = 8.0 mg/dL 8.4-10.2 L 10120-6) AST (test code = 71 U/L 5-34 H 1920-8) ALT (test code = 72 U/L 6-55 H 1742-6) EGFR (test code = 94 mL/min/1.73 [place] [address]-2) NOT ACCURATE CREATININE CLEARANCE IN PREDICTING GLOMERULAR FILTRATION RATE . ESTIMATED GFR I S NOT APPLICABLE FOR DIALYSIS PATIEN NETTIE (test code = NETTIE) Mixer Crane Operator ID - CORA Lab Interpretation Abnormal (test code = 62715-9) [facility] CenterHepatic function [id number] 14:31:00 Test Item Value Reference Range Interpretation Comments Protein, Total (test 6.3 See_Comment [Autom ated code = 2885-2) message] The system which generated this result transmit alexandre reference range : 6.0 - 8.3 gm/dL . The reference range was not u sed to interpret th is result as normal/abnormal . Albumin (test code = 3.5 g/dL 3.5-5 93332-8) Total Bilirubin (test 0.4 mg/dL 0.2-1.2 code = 1975-2) Bilirubin, Direct 0.2 mg/dL 0.1-0.5 (test code = 1968-7) Alkaline Phosphatase 292 U/L 40-150 H (test code = 6768-6) AST (test code = 71 U/L 5-34 H 1920-8) ALT (test code = 72 U/L 6-55 H 1742-6) NETTIE (test code = NETTIE) Mixer Crane Operator ID - CORA Lab Interpretation Abnormal (test code = 86788-1) [facility] CenterCOMPREHENSIVE METABOLIC [id number] 14:31:00 Test Item Value Reference Range Interpretation Comments TOTAL PROTEIN 6.3 gm/dL 6.0-8.3 (BEAKER) (test code = 770) ALBUMIN (BEAKER) 3.5 g/dL 3.5-5.0 (test code = 1145) ALKALINE PHOSPHATASE 292 U/L 40-150 H (BEAKER) (test code = 346) BILIRUBIN TOTAL 0.4 mg/dL 0.2-1.2 (BEAKER) (test code = 377) SODIUM (BEAKER) (test 143 meq/L 136-145 code = 381) POTASSIUM (BEAKER) 3.4 meq/L 3.5-5.1 L (test code = 379) CHLORIDE (BEAKER) 108 meq/L 98-107 H (test code = 382) CO2 (BEAKER) (test 24 meq/L 22-29 code = 355) BLOOD UREA NITROGEN 24 mg/dL 7-21 H (BEAKER) (test code = 354) CREATININE (BEAKER) 0.62 mg/dL 0.57-1.25 (test code = 358) GLUCOSE RANDOM 131 mg/dL 70-105 H (BEAKER) (test code = 652) CALCIUM (BEAKER) 8.0 mg/dL 8.4-10.2 L (test code = 697) AST (SGOT) (BEAKER) 71 U/L 5-34 H (test code = 353) ALT (SGPT) (BEAKER) 72 U/L 6-55 H (test code = 347) EGFR (BEAKER) (test 94 mL/min/1.73 ESTIMA ALEXANDRE GFR IS code = 1092) sq m NOT ACCURATE CREATININE CLEARANCE IN PREDICTING GLOMERULAR FILTRATION RATE . ESTIMATED GFR I S NOT APPLICABLE FOR DIALYSIS PATIEN TS. Mixer Crane Operator ID - CORAHEPATIC FUNCTION [id number] 14:31:00 Test Item Value Reference Range Interpretation Comments TOTAL PROTEIN (BEAKER) (test code = 6.3 gm/dL 6.0-8.3 770) ALBUMIN (BEAKER) (test code = 1145) 3.5 g/dL 3.5-5.0 BILIRUBIN TOTAL (BEAKER) (test code 0.4 mg/dL 0.2-1.2 = 377) BILIRUBIN DIRECT (BEAKER) (test 0.2 mg/dL 0.1-0.5 code = 706) ALKALINE PHOSPHATASE (BEAKER) (test 292 U/L 40-150 H code = 346) AST (SGOT) (BEAKER) (test code = 71 U/L 5-34 H 353) ALT (SGPT) (BEAKER) (test code = 72 U/L 6-55 H 347) Mixer Crane Operator ID - CORABlood gas, [id number] 13:59:00 Test Item Value Reference Range Interpretation Comments pH, Arterial (test code 7.46 7.35-7.45 H = 2744-1) pCO2, Arterial (test 37 See_Comment [Autom ated message] code = 2019-8) The system [employer] generated this result transmit alexandre reference range : 35 - 45 mm Hg. The reference range was not used to interpret this result as normal/abnormal . pO2, Arterial (test 91 See_Comment H [Automa alexandre message] code = 2703-7) The system [employer] generated this result transmit alexandre reference range : 80 - 90 mm Hg. The reference range was not used to interpret this result as normal/abnormal . O2 Sat, Arterial (test 96.7 % 96-97 code = 2708-6) HCO3, Arterial (test 25 mmol/L 21-29 code = 1960-4) Base Excess, Arterial 2.0 mmol/L -2-3 (test code = 1925-7) Patient Temperature 39.0 (test code = 8310-5) FIO2 (test code = 1819) 21 Lab Interpretation Abnormal (test code = 06742-3) [facility] CenterBLOOD GAS, [id number] 13:59:00 Test Item Value Reference Range Interpretation Comments PH ARTERIAL (BEAKER) (test code = 7.46 7.35-7.45 H 383) PCO2 ARTERIAL (BEAKER) (test code 37 mm Hg 35-45 = 384) PO2 ARTERIAL (BEAKER) (test code = 91 mm Hg 80-90 H 385) O2 SATURATION ARTERIAL (BEAKER) 96.7 % 96.0-97.0 (test code = 386) HCO3 ARTERIAL (BEAKER) (test code 25 mmol/L 21-29 = 388) BASE EXCESS ARTERIAL (BEAKER) 2.0 mmol/L -2.0-3.0 (test code = 387) PATIENT TEMPERATURE (BEAKER) (test 39.0 code = 1818) FIO2 (BEAKER) (test code = 1819) 21.0 CT, BRAIN, WITHOUT [id number] 13:54:00Unlisted Reason for Exam - Click Yes and Enter Reason Below->YesUnlisted Reason for Exam->SAH worsen [facility] : 1945 Sex: FFINAL REPORT CT, BRAIN, WITHOUT CONTRAST INDICATION: Unlisted Reason for ExamSAH worsen exam TECHNIQUE: Noncontrast axial imaging was obtained from the vertex to the skull base. Axial images were reconstructed using a bone algorithm. DOSE REDUCTION: Dose modulation, iterative reconstruction, and/or weight-based adjustment of the mA/kV was utilized to reduce the radiation dose to as low as reasonably achievable. 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 Unchanged distribution of parenchymal and subarachnoid hemorrhage in the right frontal and temporal regio ns as well as left parietal region. Unchanged trace intraventricular hemorrhage. Similar edema within the right frontal and temporal lobes. There is an unchanged 4 mm leftward midline shift. No hydrocephalus. Generalized cerebral atrophy with ex vacuo dilatation of the ventricular system proportionate to sulci. Scattered foci of hypoattenuation within the periventricular and subcortical white matterare a nonspecific finding commonly attributed to chronic small vessel ischemic disease. Osseous structures: Right pterional craniotomy without offset. No fracture. No suspicious lesion. Paranasal sinuses and mastoid air cells: No evidence of sinusitis. Mastoids are clear. Orbital contents: Globes are intact. IMPRESSION: No significant interval change in multicompartmental hemorrhage, edema in the right cerebral hemisphere, and mild leftward midline shift. Signed: Opal Carrillo MDReport Verified Date/Time: 01/07/2021 13:54:14 CT brain without IV [id number] 13:54:00Interface, External Ris In - 01/07/2021 1:[address], BRAIN, WITHOUT CONTRAST INDICATION: Unlisted Reason for ExamSAH worsen exam TECHNIQUE: Noncontrast axial imaging was obtained from the vertex to the skull base. Axial images were reconstructed using a bone algorithm. DOSE REDUCTION: Dose modulation, iterative reconstruction, and/or weight-based adjustment of the mA/kV was utilized to reduce the radiation dose to as low as reasonably achievable. COMPARISON: CT01/06/2021 FINDINGS: Intracranial: Again noted are postoperative changes of right pterional craniotomy for clipping of right M1-M2 aneurysm. Unchanged distribution of parenchymal and subarachnoid hemorrhage in the right frontal and temporal regions as well as left parietal region. Unchanged trace intraventricular hemorrhage. Similar edema within the right frontal and temporal lobes. There is an unchanged 4 mm leftward midline shift. No hydrocephalus. Generalized cerebral atrophy with ex vacuo dilatation of the ventricular system proportionate to sulci. Scattered foci of hypoattenuation within the periventricular and subcortical white matter are a nonspecific finding commonly attributed to chronic small vessel ischemic disease. Osseous structures: Right pterional craniotomy without offset. No fracture. No suspicious lesion. Paranasal sinuses and mastoid air cells: No evidence of sinusitis. Mastoids are clear. Orbital contents: Globes are intact. IMPRESSION: No significant interval change in multicompartmental hemorrhage, edema in the right cerebral hemisphere, and mild leftward midline shift. 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 She was taken at that time for craniotomy and clipping of right middle cerebral ar shane aneurysm and evacuation of hematoma. She has been closely monitored in the intensive care unit with aggressive supportive care. She presents today as planned for diagnostic angiography to assess for vasospasm with possible treatment if present. CONSENT: The risks and benefits of the procedure were discussed with the patient and his/her family. These include but are not limited to infection, bleeding, stroke, , vessel injury, groin hematoma, retroperitoneal hematoma and need for additional treatment and/or therapy. The questions were answered. They understood and wished to proceed. PROCEDURE IN DETAIL: A time-out was performed. Both groins and wrists were prepped in the usual sterile fashion using Chloraprep, and sterilely draped. A single wall puncture of the right radial artery was performed using a micropuncture set and dilator and a 5-Fr short sheath was inserted into the right radial artery. A medication cocktail consisting of heparin, nitroglycerin, and verapamil was then infusedthrough the sheath. Using coaxial technique, a 5F LOAG catheter was advanced through the right subclavian artery to the relevant vessels, back-bled, and flushed in the usual fashion. Using coaxial technique, and with the aid of the roadmapping, digital fluoroscopy, and careful guidewire manipulation the below arteries were catheterized. Upon each successive selective catheterization, digital subtraction angiography using the appropriate rate and volume of contrast in multiple projections was performed. In the right internal carotid artery we infused 20 mg of verapamil over 20 minutes. Post infusion angiography demonstrated improvement in degree of vasospasm. 3-dimensional angiogram was performed and processed on an independent workstation. These images were reviewed by Dr. Whitt separately.The catheter was removed. The sheath was removed and hemostasis was achieved with a prelude band closure device. The patient tolerated the procedure well and was taken to ICU in stable condition. Endovascular Intervention: Diagnostic cerebral angiogram and intra- arterial infusion of verapamil FINDINGS:RIGHT RADIAL ARTERY (DSA - PA - ELBOW) The visualized brachial, radial, and ulnar arteries and theirbranches are widely patent without stenosis. RIGHT COMMON CAROTID ARTERY (DSA - AP, LATERAL - CERVICAL) Under fluoroscopic guidance, the catheter was advanced into the right common carotid artery. PA and lateral projections demonstrate antegrade flow into the right common and internal carotid arteriesand the right external carotid artery. There is no vessel stenosis or vasospasm. RIGHT INTERNAL CAROTID ARTERY (DSA - AP, LATERAL - HEAD) Under fluoroscopic guidance, a catheter was advanced into the right internal carotid artery. PA and lateral projections demonstrate antegrade flow into the intracranial segments of the internal carotid artery, middle and anterior cerebral artery. There is moderate vasospasm involving the superior and inferior M2 divisions of the middle cerebral artery. This was treated as above with 20 mg of intra-arterial verapamil over 20 minutes. Post infusion angiography demonstrated improvement in caliber of the vessels. The previously treated right middle cerebral artery aneurysm is again noted to be clipped ligated. There is a residual neck of the aneurysm in the anterior portion measuring 1.58 mm x 1.52 mm x 0.92 mm (RL x AP x SI). Additionally there is a medially projecting aneurysm in the carotid cave measuring 3.49 mm x 4.79 mm (height x width) with a 4.05 mm neck.Venous phase images are balanced over the convexity. RIGHT VERTEBRAL ARTERY (DSA - AP, LATERAL - HEAD) Under fluoroscopic guidance, the catheter was advanced into the right vertebral artery. PA and lateral projections of the cranium demonstrate antegrade flow into the right vertebral and basilar arteries. The right vertebral artery is patent without significant stenotic lesion. 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 The right posterior inferior cerebellar artery is normal in course and caliber. The basilar artery shows no significant abnormality. The posterior cerebral arteries and their branches are normal in course and caliber. The anterior inferior cerebellar arteries are normal in course and caliber. The superior cerebellar arteries are normal in course and caliber. No filling of the left vertebral artery is seen from the right arteryinjection. No stenosis or vasospasm is observed. No significant abnormalities are seen in the capillary and venous phases. The venous phase demonstrates patent transverse and sigmoid sinuses. LEFT COMMON CAROTID ARTERY (DSA - AP, LATERAL - CERVICAL) Under fluoroscopic guidance, the catheter was advanced into the left common carotid artery. PA and lateral projections demonstrate antegrade flow into the left common and internal carotid arteries and the left external carotid artery. There is no vessel stenosis or vasospasm. LEFT COMMON CAROTID ARTERY (DSA - AP, LATERAL - HEAD) Under fluoroscopic guidance, a catheter was advanced into the left common carotid artery. PA and lateral projections demonstrate antegrade flow into the intracranial segments of the internal carotid artery, middle and anteriorcerebral artery. No aneurysms, arteriovenous shunting, dissection, occlusion is appreciated. No vasospasm noted in the left anterior cerebral artery or middle cerebral artery regions. Venous phase images are balanced over the convexity. PA and lateral projections demonstrate antegrade flow into the external carotid segments of the carotid artery. The visualized portions of the left external carotid artery and its branches are normal in course and caliber. There is no evidence of arteriovenous shunting. The venous phase is normal. Vessels catheterized:1. Right common carotid artery, cervical2. Right internal carotid artery3. Left common carotid artery, cervical4. Left common carotid artery, cranial5. Right vertebral artery SUPERVISION AND INTERPRETATION: Dr. Whitt was present for the entirety of the case. Impression: 1. Moderate vasospasm in the superior and inferior M2 divisions of the right middle cerebral artery status post intra-arterial infusion of 20 mg of verapamil with subsequent improvement to mild vasospasm 2. Right middle cerebral artery aneurysm status post clip ligation with residual neck in the anterior portion measuring 1.58 mm x 1.52 mm x 0.92 mm (RL x AP x SI). 3. 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 She was taken at that time for craniotomy and clipping of right middle cerebral ar shane aneurysm and evacuation of hematoma. She has been closely monitored in the intensive care unit with aggressive supportive care. She presents today as planned for diagnostic angiography to assess for vasospasm with possible treatment if present. CONSENT: The risks and benefits of the procedure were discussed with the patient and his/her family. These include but are not limited to infection, bleeding, stroke, , vessel injury, groin hematoma, retroperitoneal hematoma and need for additional treatment and/or therapy. The questions were answered. They understood and wished to proceed. PROCEDURE IN DETAIL: A time-out was performed. Both groins and wrists were prepped in the usual sterile fashion using Chloraprep, and sterilely draped. A single wall puncture of the right radial artery was performed using a micropuncture set and dilator and a 5-Fr short sheath was inserted into the right radial artery. A medication cocktail consisting of heparin, nitroglycerin, and verapamil was then infusedthrough the sheath. Using coaxial technique, a 5F patel catheter was advanced through the right subclavian artery to the relevant vessels, back-bled, and flushed in the usual fashion. Using coaxial technique, and with the aid of the roadmapping, digital fluoroscopy, and careful guidewire manipulation the below arteries were catheterized. Upon each successive selective catheterization, digital subtraction angiography using the appropriate rate and volume of contrast in multiple projections was performed. In the right internal carotid artery we infused 20 mg of verapamil over 20 minutes. Post infusion angiography demonstrated improvement in degree of vasospasm. 3-dimensional angiogram was performed and processed on an independent workstation. These images were reviewed by Dr. Whitt separately.The catheter was removed. The sheath was removed and hemostasis was achieved with a prelude band closure device. The patient tolerated the procedure well and was taken to ICU in stable condition. Endovascular Intervention: Diagnostic cerebral angiogram and intra- arterial infusion of verapamil FINDINGS:RIGHT RADIAL ARTERY (DSA - PA - ELBOW) The visualized brachial, radial, and ulnar arteries and theirbranches are widely patent without stenosis. RIGHT COMMON CAROTID ARTERY (DSA - AP, LATERAL - CERVICAL) Under fluoroscopic guidance, the catheter was advanced into the right common carotid artery. PA and lateral projections demonstrate antegrade flow into the right common and internal carotid arteriesand the right external carotid artery. There is no vessel stenosis or vasospasm. RIGHT INTERNAL CAROTID ARTERY (DSA - AP, LATERAL - HEAD) Under fluoroscopic guidance, a catheter was advanced into the right internal carotid artery. PA and lateral projections demonstrate antegrade flow into the intracranial segments of the internal carotid artery, middle and anterior cerebral artery. There is moderate vasospasm involving the superior and inferior M2 divisions of the middle cerebral artery. This was treated as above with 20 mg of intra-arterial verapamil over 20 minutes. Post infusion angiography demonstrated improvement in caliber of the vessels. The previously treated right middle cerebral artery aneurysm is again noted to be clipped ligated. There is a residual neck of the aneurysm in the anterior portion measuring 1.58 mm x 1.52 mm x 0.92 mm (RL x AP x SI). Additionally there is a medially projecting aneurysm in the carotid cave measuring 3.49 mm x 4.79 mm (height x width) with a 4.05 mm neck.Venous phase images are balanced over the convexity. RIGHT VERTEBRAL ARTERY (DSA - AP, LATERAL - HEAD) Under fluoroscopic guidance, the catheter was advanced into the right vertebral artery. PA and lateral projections of the cranium demonstrate antegrade flow into the right vertebral and basilar arteries. The right vertebral artery is patent without significant stenotic lesion. 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 The right posterior inferior cerebellar artery is normal in course and caliber. The basilar artery shows no significant abnormality. The posterior cerebral arteries and their branches are normal in course and caliber. The anterior inferior cerebellar arteries are normal in course and caliber. The superior cerebellar arteries are normal in course and caliber. No filling of the left vertebral artery is seen from the right arteryinjection. No stenosis or vasospasm is observed. No significant abnormalities are seen in the capillary and venous phases. The venous phase demonstrates patent transverse and sigmoid sinuses. LEFT COMMON CAROTID ARTERY (DSA - AP, LATERAL - CERVICAL) Under fluoroscopic guidance, the catheter was advanced into the left common carotid artery. PA and lateral projections demonstrate antegrade flow into the left common and internal carotid arteries and the left external carotid artery. There is no vessel stenosis or vasospasm. LEFT COMMON CAROTID ARTERY (DSA - AP, LATERAL - HEAD) Under fluoroscopic guidance, a catheter was advanced into the left common carotid artery. PA and lateral projections demonstrate antegrade flow into the intracranial segments of the internal carotid artery, middle and anteriorcerebral artery. No aneurysms, arteriovenous shunting, dissection, occlusion is appreciated. No vasospasm noted in the left anterior cerebral artery or middle cerebral artery regions. Venous phase images are balanced over the convexity. PA and lateral projections demonstrate antegrade flow into the external carotid segments of the carotid artery. The visualized portions of the left external carotid artery and its branches are normal in course and caliber. There is no evidence of arteriovenous shunting. The venous phase is normal. Vessels catheterized:1. Right common carotid artery, cervical2. Right internal carotid artery3. Left common carotid artery, cervical4. Left common carotid artery, cranial5. Right vertebral artery SUPERVISION AND INTERPRETATION: Dr. Whitt was present for the entirety of the case. Impression: 1. Moderate vasospasm in the superior and inferior M2 divisions of the right middle cerebral artery status post intra-arterial infusion of 20 mg of verapamil with subsequent improvement to mild vasospasm 2. Right middle cerebral artery aneurysm status post clip ligation with residual neck in the anterior portion measuring 1.58 mm x 1.52 mm x 0.92 mm (RL x AP x SI). 3. 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 She has been closely monitored in the intensive care unit with aggressive supportive care. She presents today as planned for diagnostic angiography to assess for vasospasm with possible treatment if present. CONSENT: The risks and benefits of the procedure were discussed with the patient and his/her family. These include but are not limited to infection, bleeding, stroke, , vessel injury, groin hematoma, retroperitoneal hematoma and need for additional treatment and/or therapy. The questions were answered. They understood and wished to proceed. PROCEDURE IN DETAIL: A time-out was performed. Both groins and wrists were prepped in the usual sterile fashion using Chloraprep, and sterilely draped. A single wall puncture of the right radial artery was performed using a micropuncture set and dilator and a 5-Fr tracey rt sheath was inserted into the right radial artery. A medication cocktail consisting of heparin, nitroglycerin, and verapamil was then infused through the sheath. Using coaxial technique, a 5F simmonscatheter was advanced through the right subclavian artery to the relevant vessels, back-bled, and flushed in the usual fashion. Using coaxial technique, and with the aid of the roadmapping, digital fluoroscopy, and careful guidewire manipulation the below arteries were catheterized. Upon each successive selective catheterization, digital subtraction angiography using the appropriate rate and volume of contrast in multiple projections was performed. In the right internal carotid artery we infused 20 mg of verapamil over 20 minutes. Post infusion angiography demonstrated improvement in degree of vasospasm. 3-dimensional angiogram was performed and processed on an independent workstation. These images were reviewed by Dr. Whitt separately. The catheter was removed. The sheath was removed and hemostasis was achieved with a prelude band closure device. The patient tolerated the procedure well and was taken to ICU in stable condition. Endovascular Intervention: Diagnostic cerebral angiogram and intra-arterial infusion of verapamil FINDINGS:RIGHT RADIAL ARTERY (DSA - PA - ELBOW) The visualized brachial, radial, and ulnar arteries and their branches are widely patent without stenosis. RIGHT COMMONCAROTID ARTERY (DSA - AP, LATERAL - CERVICAL) Under fluoroscopic guidance, the catheter was advancedinto the right common carotid artery. PA and lateral projections demonstrate antegrade flow into theright common and internal carotid arteries and the right external carotid artery. There is no vesselstenosis or vasospasm. RIGHT INTERNAL CAROTID ARTERY (DSA - AP, LATERAL - HEAD) Under fluoroscopic guidance, a catheter was advanced into the right internal carotid artery. PA and lateral projections de monstrate antegrade flow into the intracranial segments of the internal carotid artery, middle and anterior cerebral artery. There is moderate vasospasm involving the superior and inferior M2 divisionsof the middle cerebral artery. This was treated as above with 20 mg of intra-arterial verapamil over20 minutes. Post infusion angiography demonstrated improvement in caliber of the vessels. The previously treated right middle cerebral artery aneurysm is again noted to be clipped ligated. There is a residual neck of the aneurysm in the anterior portion measuring 1.58 mm x 1.52 mm x 0.92 mm (RL x AP xSI). Additionally there is a medially projecting aneurysm in the carotid cave measuring 3.49 mm x 4.79 mm (height x width) with a 4.05 mm neck. Venous phase images are balanced over the convexity. RIGHT VERTEBRAL ARTERY (DSA - AP, LATERAL - HEAD) Under fluoroscopic guidance, the catheter was advancedinto the right vertebral artery. PA and lateral projections of the cranium demonstrate antegrade flow into the right vertebral and basilar arteries. The right vertebral artery is patent without significant stenotic lesion. 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 The right posterior inferior cerebellar artery is normal in course and caliber. The basilar artery shows no significant abnormality. The posterior cerebral arteries and their branches are normal in course and caliber. The anterior inferior cerebellar arteries are normal in course and caliber. The superior cerebellar arteries are normal in course and caliber. No filling of the left vertebral artery is seen from the right artery injection. No stenosis or vasospasm is observed. No signif icant abnormalities are seen in the capillary and venous phases. The venous phase demonstrates patent transverse and sigmoid sinuses. LEFT COMMON CAROTID ARTERY (DSA - AP, LATERAL - CERVICAL) Under fluoroscopic guidance, the catheter was advanced into the left common carotid artery. PA and lateral projections demonstrate antegrade flow into the left common and internal carotid arteries and the left external carotid artery. There is no vessel stenosis or vasospasm. LEFT COMMON CAROTID ARTERY (DSA - AP, LATERAL - HEAD) Under fluoroscopic guidance, a catheter was advanced into the left common carotid artery. PA and lateral projections demonstrate antegrade flow into the intracranial segments of the internal carotid artery, middle and anterior cerebral artery. No aneurysms, arteriovenous shunting, dissection, occlusion is appreciated. No vasospasm noted in the left anterior cerebral artery or middlecerebral artery regions. Venous phase images are balanced over the convexity. PA and lateral projections demonstrate antegrade flow into the external carotid segments of the carotid artery. The visualized portions of the left external carotid artery and its branches are normal in course and caliber. There is no evidence of arteriovenous shunting. The venous phase is normal. Vessels catheterized:1. Right common carotid artery, cervical2. Right internal carotid artery3. Left common carotid artery, cervical4. Left common carotid artery, cranial5. Right vertebral artery SUPERVISION AND INTERPRETATION:Dr. Whitt was present for the entirety of the case. Impression: 1. Moderate vasospasm in the superior and inferior M2 divisions of the right middle cerebral artery status post intra-arterial infusionof 20 mg of verapamil with subsequent improvement to mild vasospasm 2. Right middle cerebral artery aneurysm status post clip ligation with residual neck in the anterior portion measuring 1.58 mm x 1.52 mm x 0.92 mm (RL x AP x SI). 3. 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 She has been closely monitored in the intensive care unit with aggressive supportive care. She presents today as planned for diagnostic angiography to assess for vasospasm with possible treatment if present. CONSENT: The risks and benefits of the procedure were discussed with the patient and his/her family. These include but are not limited to infection, bleeding, stroke, , vessel injury, groin hematoma, retroperitoneal hematoma and need for additional treatment and/or therapy. The questions were answered. They understood and wished to proceed. PROCEDURE IN DETAIL: A time-out was performed. Both groins and wrists were prepped in the usual sterile fashion using Chloraprep, and sterilely draped. A single wall puncture of the right radial artery was performed using a micropuncture set and dilator and a 5-Fr tracey rt sheath was inserted into the right radial artery. A medication cocktail consisting of heparin, nitroglycerin, and verapamil was then infused through the sheath. Using coaxial technique, a 5F simmonscatheter was advanced through the right subclavian artery to the relevant vessels, back-bled, and flushed in the usual fashion. Using coaxial technique, and with the aid of the roadmapping, digital fluoroscopy, and careful guidewire manipulation the below arteries were catheterized. Upon each successive selective catheterization, digital subtraction angiography using the appropriate rate and volume of contrast in multiple projections was performed. In the right internal carotid artery we infused 20 mg of verapamil over 20 minutes. Post infusion angiography demonstrated improvement in degree of vasospasm. 3-dimensional angiogram was performed and processed on an independent workstation. These images were reviewed by Dr. Whitt separately. The catheter was removed. The sheath was removed and hemostasis was achieved with a prelude band closure device. The patient tolerated the procedure well and was taken to ICU in stable condition. Endovascular Intervention: Diagnostic cerebral angiogram and intra-arterial infusion of verapamil FINDINGS:RIGHT RADIAL ARTERY (DSA - PA - ELBOW) The visualized brachial, radial, and ulnar arteries and their branches are widely patent without stenosis. RIGHT COMMONCAROTID ARTERY (DSA - AP, LATERAL - CERVICAL) Under fluoroscopic guidance, the catheter was advancedinto the right common carotid artery. PA and lateral projections demonstrate antegrade flow into theright common and internal carotid arteries and the right external carotid artery. There is no vesselstenosis or vasospasm. RIGHT INTERNAL CAROTID ARTERY (DSA - AP, LATERAL - HEAD) Under fluoroscopic guidance, a catheter was advanced into the right internal carotid artery. PA and lateral projections de monstrate antegrade flow into the intracranial segments of the internal carotid artery, middle and anterior cerebral artery. There is moderate vasospasm involving the superior and inferior M2 divisionsof the middle cerebral artery. This was treated as above with 20 mg of intra-arterial verapamil over20 minutes. Post infusion angiography demonstrated improvement in caliber of the vessels. The previously treated right middle cerebral artery aneurysm is again noted to be clipped ligated. There is a residual neck of the aneurysm in the anterior portion measuring 1.58 mm x 1.52 mm x 0.92 mm (RL x AP xSI). Additionally there is a medially projecting aneurysm in the carotid cave measuring 3.49 mm x 4.79 mm (height x width) with a 4.05 mm neck. Venous phase images are balanced over the convexity. RIGHT VERTEBRAL ARTERY (DSA - AP, LATERAL - HEAD) Under fluoroscopic guidance, the catheter was advancedinto the right vertebral artery. PA and lateral projections of the cranium demonstrate antegrade flow into the right vertebral and basilar arteries. The right vertebral artery is patent without significant stenotic lesion. 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 The right posterior inferior cerebellar artery is normal in course and caliber. The basilar artery shows no significant abnormality. The posterior cerebral arteries and their branches are normal in course and caliber. The anterior inferior cerebellar arteries are normal in course and caliber. The superior cerebellar arteries are normal in course and caliber. No filling of the left vertebral artery is seen from the right artery injection. No stenosis or vasospasm is observed. No signif icant abnormalities are seen in the capillary and venous phases. The venous phase demonstrates patent transverse and sigmoid sinuses. LEFT COMMON CAROTID ARTERY (DSA - AP, LATERAL - CERVICAL) Under fluoroscopic guidance, the catheter was advanced into the left common carotid artery. PA and lateral projections demonstrate antegrade flow into the left common and internal carotid arteries and the left external carotid artery. There is no vessel stenosis or vasospasm. LEFT COMMON CAROTID ARTERY (DSA - AP, LATERAL - HEAD) Under fluoroscopic guidance, a catheter was advanced into the left common carotid artery. PA and lateral projections demonstrate antegrade flow into the intracranial segments of the internal carotid artery, middle and anterior cerebral artery. No aneurysms, arteriovenous shunting, dissection, occlusion is appreciated. No vasospasm noted in the left anterior cerebral artery or middlecerebral artery regions. Venous phase images are balanced over the convexity. PA and lateral projections demonstrate antegrade flow into the external carotid segments of the carotid artery. The visualized portions of the left external carotid artery and its branches are normal in course and caliber. There is no evidence of arteriovenous shunting. The venous phase is normal. Vessels catheterized:1. Right common carotid artery, cervical2. Right internal carotid artery3. Left common carotid artery, cervical4. Left common carotid artery, cranial5. Right vertebral artery SUPERVISION AND INTERPRETATION:Dr. Whitt was present for the entirety of the case. Impression: 1. Moderate vasospasm in the superior and inferior M2 divisions of the right middle cerebral artery status post intra-arterial infusionof 20 mg of verapamil with subsequent improvement to mild vasospasm 2. Right middle cerebral artery aneurysm status post clip ligation with residual neck in the anterior portion measuring 1.58 mm x 1.52 mm x 0.92 mm (RL x AP x SI). 3. 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 Signed: Ava Whitt MDReport Verified Date/Time: 01/07/2021 13:27:18 Reading Location: [facility] Reading Room [facility] HospitalRAD, [facility]ST, 1 VIEW, NON [id number] 12:33:00Reason for exam:- >leukocytosisShould this be performed at the bedside?->Yes [facility] 1945 Sex: FFINAL REPORT CLINICAL HISTORY: leukocytosis TECHNIQUE: 1 view of the chest. COMPARISON: 01/04/2021 IMPRESSION: The ETT has been removed. Feeding tube remains. There is patchy left lung base airspace opacity with a trace left effusion. The right lung remains well-aerated. The cardiomediastinal silhouette is magnified by technique. Signed: Griselda Mcconnell MDReport Verified Date/Time: 01/07/2021 12:33:30 Reading Location: [facility] Radiology Reading Room EEG AWAKE AND [id number] 12:32:00For STAT EEG- after 5 PM weekdays, weekends and holidays, page the on-call EEG TechReason for exam:->c/f subclinical sz [facility]ET[facility] : 1945 Sex: FAddendum BeginsDate of EEG and EEG report was 01/07/2021, no 12/24/2020. Addendum EndsVIDEO [facility] NAME: Sonu Arellano DATE OF EE12/24/2020 DATE OF REPORT: 12/24/2020 ACC: [id number] Start time: 12/24/2020@08:33 Stop time: 12/24/2020@08:54 ICD-10: R41.82, R56.9 CPT Code: 33520 HISTORY: 75yo female with PMH of hypertension, presenting with ICH and SAH 2/2 R MCA aneurysm. now s/p R pteronial craniotomy for R MCA bifurcation aneurysm and hematoma evacuation on 12/28 MEDICATIONS THAT COULD AFFECT THE EEG: Keppra, acetaminophen, dextrose, lovenox, apresoline, insulin, labetalol, loperamide, provigil, micardipine, nimodipine TECHNICAL SUMMARY: This is a [facility]-EEG recorded with 32 input channels reviewed with bipolar and referential montages using the modified combinatorial system nomenclature. DESCRIPTION OF RECORD: During the maximally alert state, no reactive posterior dominant rhythm was seen. There was left sided continuous theta slowing and intermittent left sided polymorphic delta slowing that was reactive. The right hemisphere was attenuated and lower voltage with delta that was nonreactive. Sleep architecture was not seen. VIDEO EVENTS: No seizures or other events were seen. HV: Hyperventilation was not performed. PHOTIC STIMULATION: Photic stimulation was not performed. Photic stimulation was done from 1-20 Hz. Photic driving was not observed. There were no ph otoparoxysmal responses seen. ELECTROCARDIOGRAM EVENTS: Normal Sinus Rhythm IMPRESSION: Abnormal EEG in coma 1. Right hemisphere low voltage, nonreactive delta slowing 2. Left hemisphere theta and intermixed delta slowing, reactive CLINICAL CORRELATION: The slowing and low voltages over the right hemisphere are consistent with a lesion there. The left sided theta and delta slowing are consistent with a moderate degree of encephalopathy. An EEG without epileptiform discharges doesnot exclude the possibility of epilepsy. If the clinical suspicion of epilepsy remains, consider additional EEG recordings. Cirilo Mays M.D., HARPREET, DEANA, LARRY Professor of Neurology [facility] Director, [facility] Epilepsy [place], [facility] EEG AWAKE AND [id number] 12:29:00 Interface, External Ris In - 01/07/2021 12:32 PM CDTAddendum BeginsDate of EEG and EEG report was 01/07/2021, no 12/24/2020. Addendum EndsVIDEO EEG report for [facility] NAME:Sonu Arellano DATE OF EE12/24/2020 DATE OF REPORT: 12/24/2020 ACC: [id number] Start time: 12/24/2020@08:33 Stop time: 12/24/2020@08:54 ICD-10: R41.82, R56.9 CPT Code: 74488 HISTORY: 75yo female with PMH of hypertension, presenting with ICH and SAH 2/2 R MCA aneurysm. now s/pR pteronial craniotomy for R MCA bifurcation aneurysm and hematoma evacuation on 12/28 MEDICATIONS THAT COULD AFFECT THE EEG: Keppra, acetaminophen, dextrose, lovenox, apresoline, insulin, labetalol, lo peramide, provigil, micardipine, nimodipine TECHNICAL SUMMARY: This is a [employer] [facility] digital Video-EEG recorded with 32 input channels reviewed with bipolar and referential montages using the modified combinatorial system nomenclature. DESCRIPTION OF RECORD: During the maximally alert state, no reactive posterior dominant rhythm was seen. There was left sided continuous theta slowing and intermittent left sided polymorphic delta slowing that was reactive. The right hemisphere was attenuated and lower voltage with delta that was nonreactive. Sleep architecture was not seen. VIDEO EVENTS: No seizures or other events were seen. HV: Hyperventilation was not performed. PHOTIC STIMULATION: Photic stimulation was not performed. Photic stimulation was done from 1-20 Hz. Photicdriving was not observed. There were no photoparoxysmal responses seen. ELECTROCARDIOGRAM EVENTS: Normal Sinus Rhythm IMPRESSION: Abnormal EEG in coma 1. Right hemisphere low voltage, nonreactive delta slowing 2. Left hemisphere theta and intermixed delta slowing, reactive CLINICAL CORRELATION: The slowing and low voltages over the right hemisphere are consistent with a lesion there. The left sided theta and delta slowing are consistent with a moderate degree of encephalopathy. An EEG without epileptiform discharges does not exclude the possibility of epilepsy. If the clinicalsuspicion of epilepsy remains, consider additional EEG recordings. Cirilo Mays M.D., HARPREET,DEANA, LARRY Professor of Neurology [facility] Director, [facility] Epilepsy [place], [facility] POCT-GLUCOSE [id number] 11:46:00 Test Item Value Reference Range Interpretation Comments POC-GLUCOSE METER 107 mg/dL 70-110 : TESTED A T [facility] 6720 (BEAKER) (test code = [facility], 1538) [id number]: Mixer Crane Operator/Techni marielos ID = [id number] for CHELLY SIMONAH POCT-GLUCOSE [id number] 05:41:00 Test Item Value Reference Range Interpretation Comments POC-GLUCOSE METER 131 mg/dL 70-110 H : TESTED A T [facility] 6720 (BEAKER) (test code = [facility], 1538) 74593: Mixer Crane Operator/Techni marielos ID = [id number] for Deysi Thompson BASIC METABOLIC [id number] 03:52:00 Test Item Value Reference Range Interpretation Comments SODIUM (BEAKER) 140 meq/L 136-145 (test code = 381) POTASSIUM (BEAKER) 3.5 meq/L 3.5-5.1 (test code = 379) CHLORIDE (BEAKER) 105 meq/L 98-107 (test code = 382) CO2 (BEAKER) (test 25 meq/L 22-29 code = 355) BLOOD UREA NITROGEN 19 mg/dL 7-21 (BEAKER) (test code = 354) CREATININE (BEAKER) 0.59 mg/dL 0.57-1.25 (test code = 358) GLUCOSE RANDOM 135 mg/dL 70-105 H (BEAKER) (test code = 652) CALCIUM (BEAKER) 8.2 mg/dL 8.4-10.2 L (test code = 697) EGFR (BEAKER) (test 99 mL/min/1.73 ESTIMA ALEXANDRE GFR IS code = 1092) sq m NOT ACCURATE CREATININE CLEARANCE IN PREDICTING GLOMERULAR FILTRATION RATE . ESTIMATED GFR I S NOT APPLICABLE FOR DIALYSIS PATIEN TS. Mixer Crane Operator ID - CHRISTINA [id number] 03:52:00 Test Item Value Reference Range Interpretation Comments MAGNESIUM (BEAKER) (test code = 2.2 mg/dL 1.6-2.6 627) Mixer Crane Operator ID - CHRISTINA [id number] 03:52:00 Test Item Value Reference Range Interpretation Comments PHOSPHORUS (BEAKER) (test code = 2.6 mg/dL 2.3-4.7 604) Mixer Crane Operator ID - CHRISTINA WCBC W/PLT COUNT & AUTO [id number] 03:41:00 Test Item Value Reference Range Interpretation Comments WHITE BLOOD CELL COUNT (BEAKER) 15.2 K/ L 3.5-10.5 H (test code = 775) RED BLOOD CELL COUNT (BEAKER) 2.75 M/ L 3.93-5.22 L (test code = 761) HEMOGLOBIN (BEAKER) (test code = 9.0 GM/DL 11.2-15.7 L 410) HEMATOCRIT (BEAKER) (test code = 29.6 % 34.1-44.9 L 411) MEAN CORPUSCULAR VOLUME (BEAKER) 107.6 fL 79.4-94.8 H (test code = 753) MEAN CORPUSCULAR HEMOGLOBIN 32.7 pg 25.6-32.2 H (BEAKER) (test code = 751) MEAN CORPUSCULAR HEMOGLOBIN CONC 30.4 GM/DL 32.2-35.5 L (BEAKER) (test code = 752) RED CELL DISTRIBUTION WIDTH 15.0 % 11.7-14.4 H (BEAKER) (test code = 412) PLATELET COUNT (BEAKER) (test 240 K/CU MM 150-450 code = 756) MEAN PLATELET VOLUME (BEAKER) 9.5 fL 9.4-12.3 (test code = 754) NUCLEATED RED BLOOD CELLS 0 /100 WBC 0-0 (BEAKER) (test code = 413) NEUTROPHILS RELATIVE PERCENT 77 % (BEAKER) (test code = 429) LYMPHOCYTES RELATIVE PERCENT 15 % (BEAKER) (test code = 430) MONOCYTES RELATIVE PERCENT 5 % (BEAKER) (test code = 431) EOSINOPHILS RELATIVE PERCENT 3 % (BEAKER) (test code = 432) BASOPHILS RELATIVE PERCENT 0 % (BEAKER) (test code = 437) NEUTROPHILS ABSOLUTE COUNT 11.66 K/ L 1.56-6.13 H (BEAKER) (test code = 670) LYMPHOCYTES ABSOLUTE COUNT 2.23 K/ L 1.18-3.74 (BEAKER) (test code = 414) MONOCYTES ABSOLUTE COUNT (BEAKER) 0.75 K/ L 0.24-0.36 H (test code = 415) EOSINOPHILS ABSOLUTE COUNT 0.39 K/ L 0.04-0.36 H (BEAKER) (test code = 416) BASOPHILS ABSOLUTE COUNT (BEAKER) 0.05 K/ L 0.01-0.08 (test code = 417) IMMATURE GRANULOCYTES-RELATIVE 1 % 0-1 PERCENT (BEAKER) (test code = 2801) POCT-GLUCOSE [id number] 23:31:00 Test Item Value Reference Range Interpretation Comments POC-GLUCOSE METER 132 mg/dL 70-110 H : TESTED A T [facility] 6720 (BEAKER) (test code = [facility], 1538) [id number]: Mixer Crane Operator/Techni marielos ID = [id number] for Tiffanie Thompsony POCT-GLUCOSE [id number] 17:30:00 Test Item Value Reference Range Interpretation Comments POC-GLUCOSE METER 111 mg/dL 70-110 H : TESTED A T [facility] 6720 (BEAKER) (test code = [facility], 1538) 18414: Mixer Crane Operator/Techni marielos ID = [id number] for Alex Hilario [id number] 16:48:00 Test Item Value Reference Range Interpretation Comments SODIUM (BEAKER) (test code = 381) 142 meq/L 136-145 Mixer Crane Operator ID - DBPOCT-GLUCOSE [id number] 11:59:00 Test Item Value Reference Range Interpretation Comments POC-GLUCOSE METER 110 mg/dL 70-110 : TESTED A T [facility] 6720 (NAZARIO) (test code = [facility] [place], 1538) 07233: Mixer Crane Operator/Techni marielos ID = [id number] for Alex Hilario CT, BRAIN, WITHOUT [id number] 10:58:00Unlisted Reason for Exam - Click Yes and Enter Reason Below->YesUnlisted Reason for Exam->hydrocephal [facility] : 1945 Sex: FFINAL REPORT CT, CTANGIO BRAIN, CT, BRAIN, WITHOUT CONTRASTBRAIN CT WITHOUT CONTRAST INDICATION: Unlisted Reason for Examspasm COMPARISON: 12/28/2020 and 12/29/2020 TECHNIQUE:Rapid acquisition spiral images were obtained between the skull base and the cranial vertex duringintravenous contrast infusion to reconstruct axial images and angiographic 3D maximum intensity projections (MIP). 3-D volumetric reformatted images were created at a dedicated workstation. Precontrastimages of the brain were also obtained. Stenosis evaluation reported in compliance with NASCET criteria. DOSE REDUCTION: Dose modulation, iterative reconstruction, and/or weight-based adjustment of the mA/kV was utilized to reduce the radiation dose to as low as reasonably achievable. FINDINGS:NECT BRAIN:Status post right pterional craniotomy for M1-M2 aneurysm clipping. Evolving intraparenchymal hematoma within the inferior frontal lobe and temporal lobe is grossly unchanged in size compared to prior exam December 30, 2020. Degree of midline shift is similar to prior, approximately 4 mm, with decreased leftward subfalcine herniation. Localized mass effect within the frontal and temporal lobes with sulcal effacement is again noted. Mild effacement of the right lateral ventricle secondary to mass effect by hematoma is again noted. No hydrocephalus. Layering intraventricular blood products are unchanged, most conspicuous within the occipital horn of the left lateral ventricle. Orbits are within normal limits. No obstructive paranasal sinus disease. CTA BRAIN:No recurrent right MCA aneurysm status post clipping.Unchanged appearance of small posteriorly projecting right cavernous ICA aneurysm measuring 3 mm base-dome, with an approximate 3mm neck, adjacent to the ophthalmic artery origin. No high-grade vasospasm. The remainder of the intracranial first and second order branches opacify normally. IMPRESSION: No significant interval change in postsurgical appearance status post right pterional craniotomy for M1-M2 aneurysm clipping. Residual hematoma within the right inferior frontal lobe and temporal lobes and associated mass effect is unchanged. Persistent 4 mm leftward midline shift and minimal leftward subfalcine herniation. No evidence of residual aneurysm in the treated right MCA. No significant vasospasm. 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 Signed: Ana Arreola MDReport Verified Date/Time: 01/06/2021 10:58:27 Reading Location: [address] Neuro Reading Room CT, CTANGIO [id number] 10:58:00Unlisted Reason for Exam - Click Yes and Enter Reason Below->YesUnlisted Reason for Exam->spasm [facility] : 1945 Sex: FFINAL REPORT CT, CTANGIO BRAIN, CT, BRAIN, WITHOUT CONTRASTBRAIN CT WITHOUT CONTRAST INDICATION: Unlisted Reason for Examspasm COMPARISON: 12/28/2020 and 12/29/2020 TECHNIQUE:Rapid acquisition spiral images were obtained between the skull base and the cranial vertex duringintravenous contrast infusion to reconstruct axial images and angiographic 3D maximum intensity projections (MIP). 3-D volumetric reformatted images were created at a dedicated workstation. Precontrastimages of the brain were also obtained. Stenosis evaluation reported in compliance with NASCET criteria. DOSE REDUCTION: Dose modulation, iterative reconstruction, and/or weight-based adjustment of the mA/kV was utilized to reduce the radiation dose to as low as reasonably achievable. FINDINGS:NECT BRAIN:Status post right pterional craniotomy for M1-M2 aneurysm clipping. Evolving intraparenchymal hematoma within the inferior frontal lobe and temporal lobe is grossly unchanged in size compared to prior exam December 30, 2020. Degree of midline shift is similar to prior, approximately 4 mm, with decreased leftward subfalcine herniation. Localized mass effect within the frontal and temporal lobes with sulcal effacement is again noted. Mild effacement of the right lateral ventricle secondary to mass effect by hematoma is again noted. No hydrocephalus. Layering intraventricular blood products are unchanged, most conspicuous within the occipital horn of the left lateral ventricle. Orbits are within normal limits. No obstructive paranasal sinus disease. CTA BRAIN:No recurrent right MCA aneurysm status post clipping.Unchanged appearance of small posteriorly projecting right cavernous ICA aneurysm measuring 3 mm base-dome, with an approximate 3mm neck, adjacent to the ophthalmic artery origin. No high-grade vasospasm. The remainder of the intracranial first and second order branches opacify normally. IMPRESSION: No significant interval change in postsurgical appearance status post right pterional craniotomy for M1-M2 aneurysm clipping. Residual hematoma within the right inferior frontal lobe and temporal lobes and associated mass effect is unchanged. Persistent 4 mm leftward midline shift and minimal leftward subfalcine herniation. No evidence of residual aneurysm in the treated right MCA. No significant vasospasm. 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 Signed: Ana rAreola MDReport Verified Date/Time: 01/06/2021 10:58:27 Reading Location: [address] Neuro Reading Room POCT-GLUCOSE [id number] 06:42:00 Test Item Value Reference Range Interpretation Comments POC-GLUCOSE METER 123 mg/dL 70-110 H : [facility] ([facility] (test code = [place] [place], 1538) 13113: Mixer Crane Operator/Techni marielos ID = [id number] for DERRICK GEORGE BASIC METABOLIC [id number] 02:52:00 Test Item Value Reference Range Interpretation Comments SODIUM (BEAKER) 139 meq/L 136-145 (test code = 381) POTASSIUM (BEAKER) 3.3 meq/L 3.5-5.1 L (test code = 379) CHLORIDE (BEAKER) 102 meq/L 98-107 (test code = 382) CO2 (BEAKER) (test 26 meq/L 22-29 code = 355) BLOOD UREA NITROGEN 15 mg/dL 7-21 (BEAKER) (test code = 354) CREATININE (BEAKER) 0.60 mg/dL 0.57-1.25 (test code = 358) GLUCOSE RANDOM 126 mg/dL 70-105 H (BEAKER) (test code = 652) CALCIUM (BEAKER) 7.8 mg/dL 8.4-10.2 L (test code = 697) EGFR (BEAKER) (test 97 mL/min/1.73 ESTIMA ALEXANDRE GFR IS code = 1092) sq m NOT ACCURATE CREATININE CLEARANCE IN PREDICTING GLOMERULAR FILTRATION RATE . ESTIMATED GFR I S NOT APPLICABLE FOR DIALYSIS PATIEN TS. Mixer Crane Operator ID - BEN [id number] 02:38:00 Test Item Value Reference Range Interpretation Comments MAGNESIUM (BEAKER) (test code = 2.0 mg/dL 1.6-2.6 627) Mixer Crane Operator ID - BEN [id number] 02:38:00 Test Item Value Reference Range Interpretation Comments PHOSPHORUS (BEAKER) (test code = 3.0 mg/dL 2.3-4.7 604) Mixer Crane Operator ID - BEN MBLOOD GAS, [id number] 02:21:00 Test Item Value Reference Range Interpretation Comments PH ARTERIAL (BEAKER) (test code = 7.50 7.35-7.45 H 383) PCO2 ARTERIAL (BEAKER) (test code 39 mm Hg 35-45 = 384) PO2 ARTERIAL (BEAKER) (test code = 187 mm Hg 80-90 H 385) O2 SATURATION ARTERIAL (BEAKER) 99.4 % 96.0-97.0 H (test code = 386) HCO3 ARTERIAL (BEAKER) (test code 29 mmol/L 21-29 = 388) BASE EXCESS ARTERIAL (BEAKER) 5.8 mmol/L -2.0-3.0 H (test code = 387) PATIENT TEMPERATURE (BEAKER) (test 37.3 code = 1818) FIO2 (BEAKER) (test code = 1819) 36.0 CBC W/PLT COUNT & AUTO [id number] 02:19:00 Test Item Value Reference Range Interpretation Comments WHITE BLOOD CELL COUNT (BEAKER) 11.1 K/ L 3.5-10.5 H (test code = 775) RED BLOOD CELL COUNT (BEAKER) 2.66 M/ L 3.93-5.22 L (test code = 761) HEMOGLOBIN (BEAKER) (test code = 8.4 GM/DL 11.2-15.7 L 410) HEMATOCRIT (BEAKER) (test code = 25.9 % 34.1-44.9 L 411) MEAN CORPUSCULAR VOLUME (BEAKER) 97.4 fL 79.4-94.8 H (test code = 753) MEAN CORPUSCULAR HEMOGLOBIN 31.6 pg 25.6-32.2 (BEAKER) (test code = 751) MEAN CORPUSCULAR HEMOGLOBIN CONC 32.4 GM/DL 32.2-35.5 (BEAKER) (test code = 752) RED CELL DISTRIBUTION WIDTH 14.3 % 11.7-14.4 (BEAKER) (test code = 412) PLATELET COUNT (BEAKER) (test 392 K/CU MM 150-450 code = 756) MEAN PLATELET VOLUME (BEAKER) 8.6 fL 9.4-12.3 L (test code = 754) NUCLEATED RED BLOOD CELLS 0 /100 WBC 0-0 (BEAKER) (test code = 413) NEUTROPHILS RELATIVE PERCENT 71 % (BEAKER) (test code = 429) LYMPHOCYTES RELATIVE PERCENT 17 % (BEAKER) (test code = 430) MONOCYTES RELATIVE PERCENT 8 % (BEAKER) (test code = 431) EOSINOPHILS RELATIVE PERCENT 3 % (BEAKER) (test code = 432) BASOPHILS RELATIVE PERCENT 0 % (BEAKER) (test code = 437) NEUTROPHILS ABSOLUTE COUNT 7.92 K/ L 1.56-6.13 H (BEAKER) (test code = 670) LYMPHOCYTES ABSOLUTE COUNT 1.85 K/ L 1.18-3.74 (BEAKER) (test code = 414) MONOCYTES ABSOLUTE COUNT (BEAKER) 0.86 K/ L 0.24-0.36 H (test code = 415) EOSINOPHILS ABSOLUTE COUNT 0.35 K/ L 0.04-0.36 (BEAKER) (test code = 416) BASOPHILS ABSOLUTE COUNT (BEAKER) 0.02 K/ L 0.01-0.08 (test code = 417) IMMATURE GRANULOCYTES-RELATIVE 1 % 0-1 PERCENT (BEAKER) (test code = 2801) POCT-GLUCOSE [id number] 01:29:00 Test Item Value Reference Range Interpretation Comments POC-GLUCOSE METER 120 mg/dL 70-110 H : TESTED A T [facility] 6720 (BEAKER) (test code = [facility], 1538) 24307: Mixer Crane Operator/Techni marielos ID = [id number] for OMEROCORPUS [facility] [id number] 21:28:00 Test Item Value Reference Range Interpretation Comments SODIUM (BEAKER) (test code = 381) 139 meq/L 136-145 Mixer Crane Operator ID - DBPOCT-GLUCOSE [id number] 18:06:00 Test Item Value Reference Range Interpretation Comments POC-GLUCOSE METER 106 mg/dL 70-110 : TESTED A T [facility] 6720 (BEAKER) (test code = [facility], 153) 95807: Mixer Crane Operator/Techni marielos ID = [id number] for Yesi gruberon (pca2), Margarita POCT-GLUCOSE [id number] 12:14:00 Test Item Value Reference Range Interpretation Comments POC-GLUCOSE METER 109 mg/dL 70-110 : TESTED A T [facility] 6720 (BEAKER) (test code = [facility], 1538) 89677: Mixer Crane Operator/Techni marielos ID = [id number] for Ro allynon (pca2), Margarita [id number] 09:02:00 Test Item Value Reference Range Interpretation Comments PROCALCITONIN (BEAKER) (test code = < ng/mL <0.05 3036) SEPSIS RISK (ng/mL)Low: 0.05-0.50Intermediate: 0.51-2.00High: >=2.01BASIC METABOLIC [id number] 06:15:00 Test Item Value Reference Range Interpretation Comments SODIUM (BEAKER) 139 meq/L 136-145 (test code = 381) POTASSIUM (BEAKER) 3.6 meq/L 3.5-5.1 (test code = 379) CHLORIDE (BEAKER) 101 meq/L 98-107 (test code = 382) CO2 (BEAKER) (test 27 meq/L 22-29 code = 355) BLOOD UREA NITROGEN 15 mg/dL 7-21 (BEAKER) (test code = 354) CREATININE (BEAKER) 0.62 mg/dL 0.57-1.25 (test code = 358) GLUCOSE RANDOM 108 mg/dL 70-105 H (BEAKER) (test code = 652) CALCIUM (BEAKER) 7.7 mg/dL 8.4-10.2 L (test code = 697) EGFR (BEAKER) (test 94 mL/min/1.73 ESTIMA ALEXANDRE GFR IS code = 1092) sq m NOT ACCURATE CREATININE CLEARANCE IN PREDICTING GLOMERULAR FILTRATION RATE . ESTIMATED GFR I S NOT APPLICABLE FOR DIALYSIS PATIEN TS. Mixer Crane Operator ID - BEN MPOCT-GLUCOSE [id number] 05:53:00 Test Item Value Reference Range Interpretation Comments POC-GLUCOSE METER 122 mg/dL 70-110 H : TESTED A T [facility] 6720 (BEAKER) (test code = [place] [place], 1538) 72494: Mixer Crane Operator/Techni marielos ID = [id number] for BEN FALL [id number] 05:53:00 Test Item Value Reference Range Interpretation Comments MAGNESIUM (BEAKER) (test code = 2.0 mg/dL 1.6-2.6 627) Mixer Crane Operator ID - BEN [id number] 05:53:00 Test Item Value Reference Range Interpretation Comments PHOSPHORUS (BEAKER) (test code = 3.5 mg/dL 2.3-4.7 604) Mixer Crane Operator ID - BEN MCBC W/PLT COUNT & AUTO [id number] 05:51:00 Test Item Value Reference Range Interpretation Comments WHITE BLOOD CELL COUNT 11.3 K/ L 3.5-10.5 H (BEAKER) (test code = 775) RED BLOOD CELL COUNT 2.64 M/ L 3.93-5.22 L (BEAKER) (test code = 761) HEMOGLOBIN (BEAKER) 8.4 GM/DL 11.2-15.7 L (test code = 410) HEMATOCRIT (BEAKER) 25.9 % 34.1-44.9 L (test code = 411) MEAN CORPUSCULAR 98.1 fL 79.4-94.8 H Discordant MCV VOLUME (BEAKER) (test result s compared to code = 753) previous result s; clinical correl ation required. MEAN CORPUSCULAR 31.8 pg 25.6-32.2 HEMOGLOBIN (BEAKER) (test code = 751) MEAN CORPUSCULAR 32.4 GM/DL 32.2-35.5 HEMOGLOBIN CONC (BEAKER) (test code = 752) RED CELL DISTRIBUTION 14.1 % 11.7-14.4 WIDTH (BEAKER) (test code = 412) PLATELET COUNT 408 K/CU MM 150-450 (BEAKER) (test code = 756) MEAN PLATELET VOLUME 9.2 fL 9.4-12.3 L (BEAKER) (test code = 754) NUCLEATED RED BLOOD 1 /100 WBC 0-0 H CELLS (BEAKER) (test code = 413) NEUTROPHILS RELATIVE 67 % PERCENT (BEAKER) (test code = 429) LYMPHOCYTES RELATIVE 20 % PERCENT (BEAKER) (test code = 430) MONOCYTES RELATIVE 9 % PERCENT (BEAKER) (test code = 431) EOSINOPHILS RELATIVE 2 % PERCENT (BEAKER) (test code = 432) BASOPHILS RELATIVE 0 % PERCENT (BEAKER) (test code = 437) NEUTROPHILS ABSOLUTE 7.62 K/ L 1.56-6.13 H COUNT (BEAKER) (test code = 670) LYMPHOCYTES ABSOLUTE 2.25 K/ L 1.18-3.74 COUNT (BEAKER) (test code = 414) MONOCYTES ABSOLUTE 1.01 K/ L 0.24-0.36 H COUNT (BEAKER) (test code = 415) EOSINOPHILS ABSOLUTE 0.26 K/ L 0.04-0.36 COUNT (BEAKER) (test code = 416) BASOPHILS ABSOLUTE 0.04 K/ L 0.01-0.08 COUNT (BEAKER) (test code = 417) IMMATURE 1 % 0-1 GRANULOCYTES-RELATIVE PERCENT (BEAKER) (test code = 2801) BLOOD GAS, [id number] 05:17:00 Test Item Value Reference Range Interpretation Comments PH ARTERIAL (BEAKER) (test code = 7.50 7.35-7.45 H 383) PCO2 ARTERIAL (BEAKER) (test code 38 mm Hg 35-45 = 384) PO2 ARTERIAL (BEAKER) (test code = 185 mm Hg 80-90 H 385) O2 SATURATION ARTERIAL (BEAKER) 99.4 % 96.0-97.0 H (test code = 386) HCO3 ARTERIAL (BEAKER) (test code 29 mmol/L 21-29 = 388) BASE EXCESS ARTERIAL (BEAKER) 5.7 mmol/L -2.0-3.0 H (test code = 387) PATIENT TEMPERATURE (BEAKER) (test 36.6 code = 1818) FIO2 (BEAKER) (test code = 1819) 40.0 POCT-GLUCOSE [id number] 00:24:00 Test Item Value Reference Range Interpretation Comments POC-GLUCOSE METER 117 mg/dL 70-110 H : TESTED A T [facility] 6720 (BEAKER) (test code = [facility], 1538) 94030: Mixer Crane Operator/Techni marielos ID = [id number] for BEN FALL POCT-GLUCOSE [id number] 18:15:00 Test Item Value Reference Range Interpretation Comments POC-GLUCOSE METER 115 mg/dL 70-110 H : TESTED A T [facility] 6720 (BEAKER) (test code = [facility], 1538) 72498: Mixer Crane Operator/Techni marielos ID = [id number] for Yesi nova (pca2)Margarita [id number] 18:10:00 Test Item Value Reference Range Interpretation Comments Potassium (test code = 3.2 meq/L 3.5-5.1 L 2823-3) NETTIE (test code = NETTIE) Mixer Crane Operator ID - BS Lab Interpretation (test Abnormal code = 69336-0) [id number] 18:10:00 Test Item Value Reference Range Interpretation Comments POTASSIUM (BEAKER) (test code = 3.2 meq/L 3.5-5.1 L 379) Mixer Crane Operator ID - [id number] 14:49:00 Test Item Value Reference Range Interpretation Comments SODIUM (BEAKER) (test code = 381) 141 meq/L 136-145 Mixer Crane Operator ID - ADMINHemoglobin and [id number] 14:40:00 Test Item Value Reference Range Interpretation Comments Hemoglobin (test code 7.6 See_Comment L [Auto mated = 786-4) message] The system which generated this result transmit alexandre reference range : 11.2 - 15.7 GM/ DL. The reference range was not u sed to interpret th is result as normal/abnormal . Hematocrit (test code 22.8 % 34.1-44.9 L = 4544-3) NETTIE (test code = NETTIE) Mixer Crane Operator ID - [id number] Lab Interpretation Abnormal (test code = 64799-0) [facility] CenterHEMOGLOBIN AND [id number] 14:40:00 Test Item Value Reference Range Interpretation Comments HEMOGLOBIN (BEAKER) (test code = 7.6 GM/DL 11.2-15.7 L 410) HEMATOCRIT (BEAKER) (test code = 22.8 % 34.1-44.9 L 411) Mixer Crane Operator ID - [id number]-GLUCOSE [id number] 11:57:00 Test Item Value Reference Range Interpretation Comments POC-GLUCOSE METER 90 mg/dL 70-110 : TESTED A T [facility] 6720 (BEAKER) (test code = [facility], 1538) 81297: Mixer Crane Operator/Techni marielos ID = [id number] for Moises terrazas (pca2)Margarita BLOOD [id number] 09:01:00 Test Item Value Reference Range Interpretation Comments CULTURE (BEAKER) (test No growth in 5 days code = 1095) BLOOD [id number] 09:01:00 Test Item Value Reference Range Interpretation Comments CULTURE (BEAKER) (test No growth in 5 days code = 1095) The specimen volume collected for this blood culture was below the optimum (10 mL per bottle or 20 mL total). Use of lower volumes may adversely affect recovery and/or detection times of some organisms.RAD, CHEST, 1 VIEW, NON DEPT 2021-01-04 08:04:00Reason for exam:->IntubatedShould this be performed at the bedside?->[facility]AL[facility] : 1945 Sex: FFINAL REPORT RAD, CHEST, 1 VIEW, NON DEPT INDICATION: Intubated DENYS RISON: January 03, 2021 FINDINGS: Portable frontal view of the chest. IMPRESSION: Support Lines: Stable. Lungs and pleura: No new consolidation. Left basilar subsegmental atelectasis. No pneumothorax.Heart and mediastinum: Stable contours. Additional findings: None. Signed: JR Mcmanus Robert MDReport Verified Date/Time: 01/04/2021 08:04:17 Reading Location: [facility] Radiology Reading Room CBC W/PLT COUNT & AUTO [id number] 05:10:00 Test Item Value Reference Range Interpretation Comments WHITE BLOOD CELL COUNT (BEAKER) 11.9 K/ L 3.5-10.5 H (test code = 775) RED BLOOD CELL COUNT (BEAKER) 2.39 M/ L 3.93-5.22 L (test code = 761) HEMOGLOBIN (BEAKER) (test code = 7.5 GM/DL 11.2-15.7 L 410) HEMATOCRIT (BEAKER) (test code = 22.5 % 34.1-44.9 L 411) MEAN CORPUSCULAR VOLUME (BEAKER) 94.1 fL 79.4-94.8 (test code = 753) MEAN CORPUSCULAR HEMOGLOBIN 31.4 pg 25.6-32.2 (BEAKER) (test code = 751) MEAN CORPUSCULAR HEMOGLOBIN CONC 33.3 GM/DL 32.2-35.5 (BEAKER) (test code = 752) RED CELL DISTRIBUTION WIDTH 13.3 % 11.7-14.4 (BEAKER) (test code = 412) PLATELET COUNT (BEAKER) (test 313 K/CU MM 150-450 code = 756) MEAN PLATELET VOLUME (BEAKER) 9.1 fL 9.4-12.3 L (test code = 754) NUCLEATED RED BLOOD CELLS 0 /100 WBC 0-0 (BEAKER) (test code = 413) NEUTROPHILS RELATIVE PERCENT 64 % (BEAKER) (test code = 429) LYMPHOCYTES RELATIVE PERCENT 26 % (BEAKER) (test code = 430) MONOCYTES RELATIVE PERCENT 9 % (BEAKER) (test code = 431) EOSINOPHILS RELATIVE PERCENT 0 % (BEAKER) (test code = 432) BASOPHILS RELATIVE PERCENT 0 % (BEAKER) (test code = 437) NEUTROPHILS ABSOLUTE COUNT 7.53 K/ L 1.56-6.13 H (BEAKER) (test code = 670) LYMPHOCYTES ABSOLUTE COUNT 3.14 K/ L 1.18-3.74 (BEAKER) (test code = 414) MONOCYTES ABSOLUTE COUNT (BEAKER) 1.05 K/ L 0.24-0.36 H (test code = 415) EOSINOPHILS ABSOLUTE COUNT 0.04 K/ L 0.04-0.36 (BEAKER) (test code = 416) BASOPHILS ABSOLUTE COUNT (BEAKER) 0.01 K/ L 0.01-0.08 (test code = 417) IMMATURE GRANULOCYTES-RELATIVE 1 % 0-1 PERCENT (BEAKER) (test code = 2801) BASIC METABOLIC [id number] 05:01:00 Test Item Value Reference Range Interpretation Comments SODIUM (BEAKER) 143 meq/L 136-145 (test code = 381) POTASSIUM (BEAKER) 3.2 meq/L 3.5-5.1 L (test code = 379) CHLORIDE (BEAKER) 104 meq/L 98-107 (test code = 382) CO2 (BEAKER) (test 28 meq/L 22-29 code = 355) BLOOD UREA NITROGEN 21 mg/dL 7-21 (BEAKER) (test code = 354) CREATININE (BEAKER) 0.66 mg/dL 0.57-1.25 (test code = 358) GLUCOSE RANDOM 107 mg/dL 70-105 H (BEAKER) (test code = 652) CALCIUM (BEAKER) 7.7 mg/dL 8.4-10.2 L (test code = 697) EGFR (BEAKER) (test 87 mL/min/1.73 ESTIMA ALEXANDRE GFR IS code = 1092) sq m NOT ACCURATE CREATININE CLEARANCE IN PREDICTING GLOMERULAR FILTRATION RATE . ESTIMATED GFR I S NOT APPLICABLE FOR DIALYSIS PATIEN TS. Mixer Crane Operator ID - [id number] 04:58:00 Test Item Value Reference Range Interpretation Comments MAGNESIUM (BEAKER) (test code = 2.2 mg/dL 1.6-2.6 627) Mixer Crane Operator ID - [id number] 04:58:00 Test Item Value Reference Range Interpretation Comments PHOSPHORUS (BEAKER) (test code = 3.8 mg/dL 2.3-4.7 604) Mixer Crane Operator ID - ADMINBLOOD GAS, [id number] 04:27:00 Test Item Value Reference Range Interpretation Comments PH ARTERIAL (BEAKER) (test code = 7.54 7.35-7.45 H 383) PCO2 ARTERIAL (BEAKER) (test code 37 mm Hg 35-45 = 384) PO2 ARTERIAL (BEAKER) (test code = 177 mm Hg 80-90 H 385) O2 SATURATION ARTERIAL (BEAKER) 99.4 % 96.0-97.0 H (test code = 386) HCO3 ARTERIAL (BEAKER) (test code 31 mmol/L 21-29 H = 388) BASE EXCESS ARTERIAL (BEAKER) 8.1 mmol/L -2.0-3.0 H (test code = 387) PATIENT TEMPERATURE (BEAKER) (test 37.1 code = 1818) FIO2 (BEAKER) (test code = 1819) 35.0 POCT-GLUCOSE [id number] 01:17:00 Test Item Value Reference Range Interpretation Comments POC-GLUCOSE METER 115 mg/dL 70-110 H : TESTED A T [facility] 6720 (BEAKER) (test code = [facility], 1538) [id number]: Mixer Crane Operator/Techni marielos ID = [id number] for DERRICK ELIAS POCT-GLUCOSE [id number] 17:51:00 Test Item Value Reference Range Interpretation Comments POC-GLUCOSE METER 126 mg/dL 70-110 H : TESTED A T [facility] 6720 (BEAKER) (test code = [facility], 1538) [id number]: Mixer Crane Operator/Techni marielos ID = [id number] for LE IJA, AURA [id number] 16:39:00 Test Item Value Reference Range Interpretation Comments SODIUM (BEAKER) (test code = 381) 139 meq/L 136-145 Mixer Crane Operator ID - ADMINPOCT-GLUCOSE [id number] 11:41:00 Test Item Value Reference Range Interpretation Comments POC-GLUCOSE METER 133 mg/dL 70-110 H : TESTED A T [facility] 6720 (BEAKER) (test code = [facility] ID, 1538) [id number]: Mixer Crane Operator/Techni marielos ID = [id number] for LE IJA, AURA RAD, CHEST, 1 VIEW, NON [id number] 09:34:00Reason for exam:- >intubatedShould this be performed at the bedside?->Yes [facility] : 1945 Sex: FFINAL REPORT RAD, CHEST, 1 VIEW, NON DEPT INDICATION: intubated DENYS RISON: Prior day's exam FINDINGS: Portable frontal view of the chest. IMPRESSION: Support Lines: Stable. Lungs and pleura: Clear lungs. No consolidation. No pneumothorax.Heart and mediastinum: Stable contours. Additional findings: None. Signed: JR Mcmanus Robert MDReport Verified Date/Time:01/03/2021 09:34:12 Reading Location: [facility] Radiology Reading Room C METABOLIC [id number] 05:47:00 Test Item Value Reference Range Interpretation Comments SODIUM (BEAKER) 139 meq/L 136-145 (test code = 381) POTASSIUM (BEAKER) 3.9 meq/L 3.5-5.1 (test code = 379) CHLORIDE (BEAKER) 104 meq/L 98-107 (test code = 382) CO2 (BEAKER) (test 23 meq/L 22-29 code = 355) BLOOD UREA NITROGEN 13 mg/dL 7-21 (BEAKER) (test code = 354) CREATININE (BEAKER) 0.61 mg/dL 0.57-1.25 (test code = 358) GLUCOSE RANDOM 132 mg/dL 70-105 H (BEAKER) (test code = 652) CALCIUM (BEAKER) 8.1 mg/dL 8.4-10.2 L (test code = 697) EGFR (BEAKER) (test 96 mL/min/1.73 ESTIMA ALEXANDRE GFR IS code = 1092) sq m NOT ACCURATE CREATININE CLEARANCE IN PREDICTING GLOMERULAR FILTRATION RATE . ESTIMATED GFR I S NOT APPLICABLE FOR DIALYSIS PATIEN TS. Mixer Crane Operator ID - [id number] 05:47:00 Test Item Value Reference Range Interpretation Comments MAGNESIUM (BEAKER) (test code = 2.2 mg/dL 1.6-2.6 627) Mixer Crane Operator ID - [id number] 05:47:00 Test Item Value Reference Range Interpretation Comments PHOSPHORUS (BEAKER) (test code = 3.2 mg/dL 2.3-4.7 604) Mixer Crane Operator ID - ADMINPOCT-GLUCOSE [id number] 05:34:00 Test Item Value Reference Range Interpretation Comments POC-GLUCOSE METER 130 mg/dL 70-110 H : TESTED A T [facility] 6720 (BEAKER) (test code = JOAN Haddad [facility], 1538) [id number]: Mixer Crane Operator/Techni marielos ID = [id number] for Deysi Thompson CBC W/PLT COUNT & AUTO [id number] 05:02:00 Test Item Value Reference Range Interpretation Comments WHITE BLOOD CELL COUNT (BEAKER) 12.2 K/ L 3.5-10.5 H (test code = 775) RED BLOOD CELL COUNT (BEAKER) 2.61 M/ L 3.93-5.22 L (test code = 761) HEMOGLOBIN (BEAKER) (test code = 8.1 GM/DL 11.2-15.7 L 410) HEMATOCRIT (BEAKER) (test code = 24.5 % 34.1-44.9 L 411) MEAN CORPUSCULAR VOLUME (BEAKER) 93.9 fL 79.4-94.8 (test code = 753) MEAN CORPUSCULAR HEMOGLOBIN 31.0 pg 25.6-32.2 (BEAKER) (test code = 751) MEAN CORPUSCULAR HEMOGLOBIN CONC 33.1 GM/DL 32.2-35.5 (BEAKER) (test code = 752) RED CELL DISTRIBUTION WIDTH 13.2 % 11.7-14.4 (BEAKER) (test code = 412) PLATELET COUNT (BEAKER) (test 297 K/CU MM 150-450 code = 756) MEAN PLATELET VOLUME (BEAKER) 9.1 fL 9.4-12.3 L (test code = 754) NUCLEATED RED BLOOD CELLS 0 /100 WBC 0-0 (BEAKER) (test code = 413) NEUTROPHILS RELATIVE PERCENT 81 % (BEAKER) (test code = 429) LYMPHOCYTES RELATIVE PERCENT 14 % (BEAKER) (test code = 430) MONOCYTES RELATIVE PERCENT 3 % (BEAKER) (test code = 431) EOSINOPHILS RELATIVE PERCENT 0 % (BEAKER) (test code = 432) BASOPHILS RELATIVE PERCENT 0 % (BEAKER) (test code = 437) NEUTROPHILS ABSOLUTE COUNT 9.89 K/ L 1.56-6.13 H (BEAKER) (test code = 670) LYMPHOCYTES ABSOLUTE COUNT 1.73 K/ L 1.18-3.74 (BEAKER) (test code = 414) MONOCYTES ABSOLUTE COUNT (BEAKER) 0.35 K/ L 0.24-0.36 (test code = 415) EOSINOPHILS ABSOLUTE COUNT 0.00 K/ L 0.04-0.36 L (BEAKER) (test code = 416) BASOPHILS ABSOLUTE COUNT (BEAKER) 0.01 K/ L 0.01-0.08 (test code = 417) IMMATURE GRANULOCYTES-RELATIVE 1 % 0-1 PERCENT (BEAKER) (test code = 2801) BLOOD GAS, [id number] 04:53:00 Test Item Value Reference Range Interpretation Comments PH ARTERIAL (BEAKER) (test code = 7.51 7.35-7.45 H 383) PCO2 ARTERIAL (BEAKER) (test code 35 mm Hg 35-45 = 384) PO2 ARTERIAL (BEAKER) (test code = 159 mm Hg 80-90 H 385) O2 SATURATION ARTERIAL (BEAKER) 99.2 % 96.0-97.0 H (test code = 386) HCO3 ARTERIAL (BEAKER) (test code 27 mmol/L 21-29 = 388) BASE EXCESS ARTERIAL (BEAKER) 3.8 mmol/L -2.0-3.0 H (test code = 387) PATIENT TEMPERATURE (BEAKER) (test 37.5 code = 1818) FIO2 (BEAKER) (test code = 1819) 35.0 POCT-GLUCOSE [id number] 23:24:00 Test Item Value Reference Range Interpretation Comments POC-GLUCOSE METER 130 mg/dL 70-110 H : TESTED A T [facility] 6720 (BEAKER) (test code = JOAN Haddad [facility], 1538) [id number]: Mixer Crane Operator/Techni marielos ID = [id number] for Deysi Thompson [id number] 18:30:00 Test Item Value Reference Range Interpretation Comments POTASSIUM (BEAKER) 4.2 meq/L 3.5-5.1 Specimen slightly (test code = 379) hemolyzed Mixer Crane Operator ID - ADMINVenous doppler legs [id number] 18:05:34Ejection FractionSLEH ECHO HEARTLAB MKCKESSON CPACSRight Impression1. There is no deep venous obstruction in the common femoral, profundafemoral, femoral, popliteal, posterior tibial or peroneal veins.2. There is no superficial venous obstruction in the great saphenous vein.Left Impression1. There is no deep venous obstruction in the common femoral, profundafemoral, femoral, popliteal, posterior tibial or peroneal veins.2. There is no superficial venous obstruction in the great saphenous vein. Conclusions Summary Venous duplex imaging and compression of the bilateral lower extremities were performed. The veins were adequately visualized. The bilateral venous systems were patent and compressible with no evidence of thrombus. The venous Doppler waveforms were pulsatile indicating possible elevated right heart filling pressure. Signature ----- Velocities are measured in cm/s ; Diameters are measured in cm Interface, External Ris In - 01/02/2021 6:05 PM CDTPV LAB - Lower ExtremitiesDVT Study Demographics Patient Name SONU ARELLANO Date of Study 01/02/2021 Age 75 Visit Number [id number] Gender Female Date of 1945 NumberReferring Sal Counts Include 234 Beds At [facility] Room Number 7409 Physician Andre Fertilizer Processing Supervisor Bartolo Clark RVS Interpreting MD Rebekah Ennis,RVT Physician ProcedureType of Study: Veins: Lower Extremities DVT Study, VENOUS DOPPLER LEG,BILATERAL. Indications for Study:ICU surveillance.Patient Status:Routine.Study Location:Portable.Technical Quality:Adequate visualization.Risk FactorsHistory of Disease+ +----+--------+!Diagnosis !Date!Comments!+ +--- -+--------+!History/Risk Factors: ! !HTN, SAH!+ +----+--------+ImpressionsRight Impression1. There is no deep venous obstruction in the common femoral, profundafemoral, femoral, popliteal, posterior tibial or peroneal veins.2. There is no superficial venous obstruction in the great saphenous vein.Left Impression1. There is no deep venous obstruction in the common femoral, profundafemoral, femoral, popliteal, posterior tibial or peroneal veins.2. There is no superficial venous obstruction in the great saphenous vein. Conclusions Summary Venous duplex imaging and compression of the bilateral lower extremities were performed. The veins were adequately visualized. The bilateral venous systems were patent and compressible with no evidence of thrombus. The venous Doppler waveforms were pulsatile indicating possible elevated right heart filling pressure. Signature --- Velocities are measured in cm/s ; Diameters are measured in [facility] Venous doppler arms [id number] 18:05:01Ejection [facility] ECHO HEARTLAB MKCKESSON CPACSRight Impression1. There is total echolucent superficial venous obstruction in the cephalicvein.2. There is no deep venous obstruction in the jugular,subclavian, axillary,brachial, radial or ulnar veins.3. There is no superficial venous obstruction in the basilic vein.Left Impression1. There is partial echolucent superficial venous obstruction in thecephalic vein.2. There is no deep venous obstruction in the jugular, subclavian, axillary,brachial, r adial or ulnar veins.3. There is no superficial venous obstruction in the basilic vein. Conclusions Summary Venous duplex imaging and compression of the bilateral upper extremities were performed. The veins were adequately visualized. The bilateral superficial venous systems were positive with acute thrombus. The bilateral deep venous system was patent and compressible with no evidence of thrombus. Signature Velocities are measured in cm/s ; Diameters are measured in cm Interface, External Ris In - 01/02/2021 6:05 PM CDTPV LAB - Upper Extremities Veins Demographics Patient Name SONU ARELLANO Date of Study 01/02/2021 Age 75 Visit Number [id number] Gender Female Date of 1945 Number Referring [facility] Room Number 7409 Physician Andre Fertilizer Processing Supervisor Bartolo Clark RVS Interpreting MD Rebekah Ennis RVT Physician ProcedureType of Study: Veins: Upper Extremities Veins, VENOUS DOPPLER ARMS, BILATERAL. Indications for Study:ICU surveillance.Patient Status:Routine.Study Location:Portable.Technical Quality:Adequate visualization. - Results were reported to:Sanjana SCHULER @ 7826.Risk FactorsHistory of Disease+ +----+--------+!Diagnosis !Date!Comments!+ +--- -+--------+!History/Risk Factors: ! !HTN, SAH!+ +----+--------+ImpressionsRight Impression1. There is total echolucent superficial venous obstruction in the cephalicvein.2. There is no deep venous obstruction in the jugular, subclavian, axillary,brachial, radial or ulnar veins.3. There is no superficial venous obs truction in the basilic vein.Left Impression1. There is partial echolucent superficial venous obstruction in thecephalic vein.2. There is no deep venous obstruction in the jugular, subclavian, axillary,brachial, radial or ulnar veins.3. There is no superficial venous obstruction in the basilic vein. Co nclusions Summary Venous duplex imaging and compression of the bilateral upper extremities were performed. The veins were adequately visualized. The bilateral superficial venous systems were positivewith acute thrombus. The bilateral deep venous system was patent and compressible with no evidence of thrombus. Signature Velocities are measured in cm/s ; Diameters are measured in [facility]-GLUCOSE [id number] 17:46:00 Test Item Value Reference Range Interpretation Comments POC-GLUCOSE METER 134 mg/dL 70-110 H : TESTED A T [facility] 6720 (BEAKER) (test code = JOAN LONG ID, 1538) [id number]: Mixer Crane Operator/Techni marielos ID = [id number] for AURELIO NARVAEZ [id number] 17:40:00 Test Item Value Reference Range Interpretation Comments SODIUM (BEAKER) (test code = 381) 139 meq/L 136-145 Mixer Crane Operator ID - [id number] 15:00:00 Test Item Value Reference Range Interpretation Comments POTASSIUM (BEAKER) 3.8 meq/L 3.5-5.1 Specimen slightly (test code = 379) hemolyzed [id number] 13:34:00 Test Item Value Reference Range Interpretation Comments MAGNESIUM (BEAKER) (test code = 2.4 mg/dL 1.6-2.6 627) Transcranial Doppler Complete (TCD)2021-01-02 13:04:27Cholé Gold 01/02/2021 1:04 PMTCD complete, report in [facility] POCT-GLUCOSE [id number] 11:49:00 Test Item Value Reference Range Interpretation Comments POC-GLUCOSE METER 116 mg/dL 70-110 H : TESTED A T [facility] 6720 (BEAKER) (test code = JOAN Haddad [facility], 1538) [id number]: Mixer Crane Operator/Techni marielos ID = [id number] for SHERRILL CAROLINAA, AURELIO [id number] 07:20:00 Test Item Value Reference Range Interpretation Comments MAGNESIUM (BEAKER) 2.1 mg/dL 1.6-2.6 Specimen slightly (test code = 627) hemolyzed BASIC METABOLIC [id number] 07:20:00 Test Item Value Reference Range Interpretation Comments SODIUM (BEAKER) (test 140 meq/L 136-145 code = 381) POTASSIUM (BEAKER) 3.3 meq/L 3.5-5.1 L Specimen slightly (test code = 379) hemolyzed CHLORIDE (BEAKER) 105 meq/L 98-107 (test code = 382) CO2 (BEAKER) (test 25 meq/L 22-29 code = 355) BLOOD UREA NITROGEN 14 mg/dL 7-21 (BEAKER) (test code = 354) CREATININE (BEAKER) 0.57 mg/dL 0.57-1.25 Specimen slightly (test code = 358) hemolyzed GLUCOSE RANDOM 143 mg/dL 70-105 H (BEAKER) (test code = 652) CALCIUM (BEAKER) 7.9 mg/dL 8.4-10.2 L (test code = 697) EGFR (BEAKER) (test INSUFFIC IENT CLINICAL code = 1092) DATA TO CALCULA TE ESTIMATED GFR. [id number] 07:11:00 Test Item Value Reference Range Interpretation Comments PHOSPHORUS (BEAKER) 2.9 mg/dL 2.3-4.7 Specimen slightly (test code = 604) hemolyzed POCT-GLUCOSE [id number] 06:10:00 Test Item Value Reference Range Interpretation Comments POC-GLUCOSE METER 122 mg/dL 70-110 H : TESTED A T [facility] 6720 (BEAKER) (test code = JOAN LONG ID, 1538) [id number]: Mixer Crane Operator/Techni marielos ID = [id number] for Deysi Thompson CBC W/PLT COUNT & AUTO [id number] 04:22:00 Test Item Value Reference Range Interpretation Comments WHITE BLOOD CELL COUNT (BEAKER) 12.1 K/ L 3.5-10.5 H (test code = 775) RED BLOOD CELL COUNT (BEAKER) 2.50 M/ L 3.93-5.22 L (test code = 761) HEMOGLOBIN (BEAKER) (test code = 7.9 GM/DL 11.2-15.7 L 410) HEMATOCRIT (BEAKER) (test code = 23.5 % 34.1-44.9 L 411) MEAN CORPUSCULAR VOLUME (BEAKER) 94.0 fL 79.4-94.8 (test code = 753) MEAN CORPUSCULAR HEMOGLOBIN 31.6 pg 25.6-32.2 (BEAKER) (test code = 751) MEAN CORPUSCULAR HEMOGLOBIN CONC 33.6 GM/DL 32.2-35.5 (BEAKER) (test code = 752) RED CELL DISTRIBUTION WIDTH 12.8 % 11.7-14.4 (BEAKER) (test code = 412) PLATELET COUNT (BEAKER) (test 252 K/CU MM 150-450 code = 756) MEAN PLATELET VOLUME (BEAKER) 8.8 fL 9.4-12.3 L (test code = 754) NUCLEATED RED BLOOD CELLS 0 /100 WBC 0-0 (BEAKER) (test code = 413) NEUTROPHILS RELATIVE PERCENT 65 % (BEAKER) (test code = 429) LYMPHOCYTES RELATIVE PERCENT 23 % (BEAKER) (test code = 430) MONOCYTES RELATIVE PERCENT 9 % (BEAKER) (test code = 431) EOSINOPHILS RELATIVE PERCENT 2 % (BEAKER) (test code = 432) BASOPHILS RELATIVE PERCENT 0 % (BEAKER) (test code = 437) NEUTROPHILS ABSOLUTE COUNT 7.85 K/ L 1.56-6.13 H (BEAKER) (test code = 670) LYMPHOCYTES ABSOLUTE COUNT 2.80 K/ L 1.18-3.74 (BEAKER) (test code = 414) MONOCYTES ABSOLUTE COUNT (BEAKER) 1.03 K/ L 0.24-0.36 H (test code = 415) EOSINOPHILS ABSOLUTE COUNT 0.20 K/ L 0.04-0.36 (BEAKER) (test code = 416) BASOPHILS ABSOLUTE COUNT (BEAKER) 0.04 K/ L 0.01-0.08 (test code = 417) IMMATURE GRANULOCYTES-RELATIVE 1 % 0-1 PERCENT (BEAKER) (test code = 2801) BLOOD GAS, [id number] 04:16:00 Test Item Value Reference Range Interpretation Comments PH ARTERIAL (BEAKER) (test code = 7.52 7.35-7.45 H 383) PCO2 ARTERIAL (BEAKER) (test code 33 mm Hg 35-45 L = 384) PO2 ARTERIAL (BEAKER) (test code = 153 mm Hg 80-90 H 385) O2 SATURATION ARTERIAL (BEAKER) 99.2 % 96.0-97.0 H (test code = 386) HCO3 ARTERIAL (BEAKER) (test code 26 mmol/L 21-29 = 388) BASE EXCESS ARTERIAL (BEAKER) 3.4 mmol/L -2.0-3.0 H (test code = 387) PATIENT TEMPERATURE (BEAKER) (test 37.5 code = 1818) FIO2 (BEAKER) (test code = 1819) 35.0 RAD, CHEST, 1 VIEW, NON [id number] 04:05:00Reason for exam:- >intubatedShould this be performed at the bedside?->Yes [facility] : 1945 Sex: FFINAL REPORT RAD, CHEST, 1 VIEW, NON DEPT INDICATION: intubated DENYS RISON: Prior day's exam FINDINGS: Portable frontal view of the chest. IMPRESSION: Support Lines: Stable. Lungs and pleura: No consolidation or sizable effusion. Unchanged bibasilar atelectasis. No pneumothorax.Heart and mediastinum: Stable contours.Additional findings: None. Signed: Danielle Espinal eport Verified Date/Time: 01/02/2021 04:05:39 Electronically signed by: DANIELLE ESPINAL MD on01/02/2021 04:05 AMMR, BRAIN, WITHOUT [id number] 02:18:00Unlisted Reason for Exam - Click Yes and Enter Reason Below->No [facility] : 1945 Sex: FFINAL REPORT EXAM: MR, BRAIN, WITHOUT CONTRAST INDICATION: Intracrani al hemorrhage, follow up TECHNIQUE: Sagittal and coronal T1-w and axial T2- FLAIR, GRE, [id number], and diffusion-w images of the brain with ADC maps. COMPARISON: 12/30/2020 CT FINDINGS:Parenchyma: Postsurgical changes status post right pterional craniotomy for right MCA bifurcation aneurysmal clipping. There is restricted diffusion in the right MCA territory compatible with acute infarction involving the right insula, right putamen, posterior right frontal lobe, right parietal lobe, and the right temporal lobe. No significant change in residual subarachnoid and intraparenchymal hemorrhage when correlated to recent CT with associated vasogenic edema and shift of midline right to left of 0.5 cm. No downward herniation. No new hemorrhage. Extra-axial Collection: As above Ventricular System: No hydrocephalus. Unchanged intraventricular hemorrhage. Major Intracranial Flow Voids: Normal Osseous Structures: Expected marrow signal. 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 There is shift of midline structures leftward of 0.5 cm, unchanged. Signed: Danielle Espinal MDReport Verified Date/Time: 01/02/2021 02:18:34 MR brain without IV [id number] 02:18:00Interface, External Ris In - 01/02/2021 2:20 AM CDTFINAL REPORT EXAM: MR, BRAIN, WITHOUT CONTRAST INDICATION: Intracranial hemorrhage, follow up TECHNIQUE: Sagittal and coronal T1-w and axial T2-FLAIR, GRE, fat-saturated T2-w, and diffusion-w images of the brain with ADC maps.COMPARISON: 12/30/2020 CT FINDINGS:Parenchyma: Postsurgical changes status post right pterional craniotomy for right MCA bifurcation aneurysmal clipping. There is restricted diffusion in the right MCA territory compatible with acute infarction involving the right insula, right putamen, posterior right frontal lobe, right parietal lobe, and the right temporal lobe. No significant change in residual subarachnoid and intraparenchymal hemorrhage when correlated to recent CT with associated vasogenic edemaand shift of midline right to left of 0.5 cm. No downward herniation. No new hemorrhage. Extra-axialCollection: As above Ventricular System: No hydrocephalus. Unchanged intraventricular hemorrhage. Major Intracranial Flow Voids: Normal Osseous Structures: Expected marrow signal. 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 There is shift of midline structures leftward of 0.5 cm, unchanged. Signed: Danielle Espinaleport Verified Date/Time: 01/02/2021 02:18:34 [facility] [id number] 23:48:00 Test Item Value Reference Range Interpretation Comments POC-GLUCOSE METER 127 mg/dL 70-110 H : TESTED A T [facility] 6720 (BEAKER) (test code = JOAN Haddad [facility], 1538) 38853: Mixer Crane Operator/Techni marielos ID = [id number] for Deysi Thompson VANCOMYCIN LEVEL, [id number] 20:05:00 Test Item Value Reference Range Interpretation Comments VANCOMYCIN TROUGH (BEAKER) (test 5.0 ug/mL 10.0-20.0 L code = 522) Mixer Crane Operator ID - [id number] 18:24:00 Test Item Value Reference Range Interpretation Comments SODIUM (BEAKER) (test code = 381) 139 meq/L 136-145 [id number] 18:24:00 Test Item Value Reference Range Interpretation Comments MAGNESIUM (BEAKER) (test code = 2.3 mg/dL 1.6-2.6 627) [id number] 18:22:00 Test Item Value Reference Range Interpretation Comments POTASSIUM (BEAKER) (test code = 3.1 meq/L 3.5-5.1 L 379) POCT-GLUCOSE [id number] 18:02:00 Test Item Value Reference Range Interpretation Comments POC-GLUCOSE METER 140 mg/dL 70-110 H : TESTED A T [facility] 6720 (BEAKER) (test code = JOAN Haddad [facility], 1538) [id number]: Mixer Crane Operator/Techni marielos ID = [id number] for LE IJA, AURA Transcranial Doppler Complete (TCD)2021-01-01 17:05:10ValentinaChloé perez 01/01/2021 5:05 PMTCD complete, report in [facility] POCT-GLUCOSE [id number] 12:19:00 Test Item Value Reference Range Interpretation Comments POC-GLUCOSE METER 143 mg/dL 70-110 H : TESTED A T [facility] 6720 (BEAKER) (test code = JOAN Haddad [facility], 1538) [id number]: Mixer Crane Operator/Techni marielos ID = [id number] for LE IJA, AURA SPUTUM CULTURE + GRAM [id number] 10:58:00 Test Item Value Reference Range Interpretation Comments CULTURE (BEAKER) (test No growth code = 1095) GRAM STAIN RESULT 1+ WBCs (BEAKER) (test code = 1123) GRAM STAIN RESULT 0-5 epithelial cells (BEAKER) (test code = 05682) GRAM STAIN RESULT No organisms seen (BEAKER) (test code = 16525) SPUTUM CULTURE + GRAM [id number] 10:46:00 Test Item Value Reference Range Interpretation Comments CULTURE (BEAKER) (test code No growth = 1095) GRAM STAIN RESULT (BEAKER) 2+ WBCs (test code = 1123) GRAM STAIN RESULT (BEAKER) No organisms seen (test code = 01598) RAD, CHEST, 1 VIEW, NON [id number] 10:03:00Reason for exam:- >intubatedShould this be performed at the bedside?->Yes [facility] : 1945 Sex: FFINAL REPORT TECHNIQUE: One view of the chest. INDICATION: 75-year-old woman status post intubation. COMPARISON: Chest radiograph 12/30/2020. FINDINGS: LINES/TUBES: Endotracheal tube terminates 2.3 cm above the carlo. Incompletely visualized feeding tube courses over the expected region of the gastric body. LUNGS: Lungs are well inflated. No consolidation or pulmonary edema. Curvilinear left basilar atelectasis. PLEURA: No pneumothorax or significant pleural effusion.HEART AND MEDIASTINUM: Cardiomediastinal silhouette is unchanged. BONES AND SOFT TISSUES: Unremarkable. IMPRESSION:Lines/tubes as above. No acute cardiopulmonary abnormality. Signed: Yodit Martinesephiwot Verified Date/Time: 01/01/2021 10:03:00 Reading Location: [facility] Diagnostic Imaging Reading Room - [place] [address] [id number] 09:01:00 Test Item Value Reference Range Interpretation Comments PHOSPHORUS (BEAKER) 2.4 mg/dL 2.3-4.7 Specimen slightly (test code = 604) hemolyzed [id number] 08:54:00 Test Item Value Reference Range Interpretation Comments MAGNESIUM (BEAKER) 2.1 mg/dL 1.6-2.6 Specimen slightly (test code = 627) hemolyzed BASIC METABOLIC [id number] 08:54:00 Test Item Value Reference Range Interpretation Comments SODIUM (BEAKER) (test 139 meq/L 136-145 code = 381) POTASSIUM (BEAKER) 3.2 meq/L 3.5-5.1 L Specimen slightly (test code = 379) hemolyzed CHLORIDE (BEAKER) 104 meq/L 98-107 (test code = 382) CO2 (BEAKER) (test 26 meq/L 22-29 code = 355) BLOOD UREA NITROGEN 10 mg/dL 7-21 (BEAKER) (test code = 354) CREATININE (BEAKER) 0.61 mg/dL 0.57-1.25 Specimen slightly (test code = 358) hemolyzed GLUCOSE RANDOM 149 mg/dL 70-105 H (BEAKER) (test code = 652) CALCIUM (BEAKER) 8.0 mg/dL 8.4-10.2 L (test code = 697) EGFR (BEAKER) (test INSUFFIC IENT CLINICAL code = 1092) DATA TO CALCULA TE ESTIMATED GFR. BLOOD GAS, [id number] 07:40:00 Test Item Value Reference Range Interpretation Comments PH ARTERIAL (BEAKER) (test code = 7.54 7.35-7.45 H 383) PCO2 ARTERIAL (BEAKER) (test code 31 mm Hg 35-45 L = 384) PO2 ARTERIAL (BEAKER) (test code = 157 mm Hg 80-90 H 385) O2 SATURATION ARTERIAL (BEAKER) 99.2 % 96.0-97.0 H (test code = 386) HCO3 ARTERIAL (BEAKER) (test code 25 mmol/L 21-29 = 388) BASE EXCESS ARTERIAL (BEAKER) 3.1 mmol/L -2.0-3.0 H (test code = 387) PATIENT TEMPERATURE (BEAKER) (test 38.0 code = 1818) FIO2 (BEAKER) (test code = 1819) 35.0 POCT-GLUCOSE [id number] 05:24:00 Test Item Value Reference Range Interpretation Comments POC-GLUCOSE METER 155 mg/dL 70-110 H : TESTED A T [facility] 6720 (BEAKER) (test code = JOAN LONG ID, [id number]) [id number]: Mixer Crane Operator/Techni marielos ID = [id number] for Deysi Thompson CBC W/PLT COUNT & AUTO [id number] 04:51:00 Test Item Value Reference Range Interpretation Comments WHITE BLOOD CELL COUNT (BEAKER) 13.1 K/ L 3.5-10.5 H (test code = 775) RED BLOOD CELL COUNT (BEAKER) 2.65 M/ L 3.93-5.22 L (test code = 761) HEMOGLOBIN (BEAKER) (test code = 8.2 GM/DL 11.2-15.7 L 410) HEMATOCRIT (BEAKER) (test code = 24.5 % 34.1-44.9 L 411) MEAN CORPUSCULAR VOLUME (BEAKER) 92.5 fL 79.4-94.8 (test code = 753) MEAN CORPUSCULAR HEMOGLOBIN 30.9 pg 25.6-32.2 (BEAKER) (test code = 751) MEAN CORPUSCULAR HEMOGLOBIN CONC 33.5 GM/DL 32.2-35.5 (BEAKER) (test code = 752) RED CELL DISTRIBUTION WIDTH 12.7 % 11.7-14.4 (BEAKER) (test code = 412) PLATELET COUNT (BEAKER) (test 245 K/CU MM 150-450 code = 756) MEAN PLATELET VOLUME (BEAKER) 8.7 fL 9.4-12.3 L (test code = 754) NUCLEATED RED BLOOD CELLS 0 /100 WBC 0-0 (BEAKER) (test code = 413) NEUTROPHILS RELATIVE PERCENT 75 % (BEAKER) (test code = 429) LYMPHOCYTES RELATIVE PERCENT 17 % (BEAKER) (test code = 430) MONOCYTES RELATIVE PERCENT 7 % (BEAKER) (test code = 431) EOSINOPHILS RELATIVE PERCENT 1 % (BEAKER) (test code = 432) BASOPHILS RELATIVE PERCENT 0 % (BEAKER) (test code = 437) NEUTROPHILS ABSOLUTE COUNT 9.74 K/ L 1.56-6.13 H (BEAKER) (test code = 670) LYMPHOCYTES ABSOLUTE COUNT 2.22 K/ L 1.18-3.74 (BEAKER) (test code = 414) MONOCYTES ABSOLUTE COUNT (BEAKER) 0.88 K/ L 0.24-0.36 H (test code = 415) EOSINOPHILS ABSOLUTE COUNT 0.09 K/ L 0.04-0.36 (BEAKER) (test code = 416) BASOPHILS ABSOLUTE COUNT (BEAKER) 0.05 K/ L 0.01-0.08 (test code = 417) IMMATURE GRANULOCYTES-RELATIVE 1 % 0-1 PERCENT (BEAKER) (test code = 2801) POCT-GLUCOSE [id number] 23:38:00 Test Item Value Reference Range Interpretation Comments POC-GLUCOSE METER 112 mg/dL 70-110 H : TESTED A T [facility] 6720 (BEAKER) (test code = JOAN ACOSTA, 1538) [id number]: Mixer Crane Operator/Techni marielos ID = [id number] for Jaskaran syedDeysi hooper POCT-GLUCOSE [id number] 19:23:00 Test Item Value Reference Range Interpretation Comments POC-GLUCOSE METER 109 mg/dL 70-110 : TESTED A T [facility] 6720 (BEAKER) (test code = JOAN Haddad [facility], 1538) [id number]: Mixer Crane Operator/Techni marielos ID = [id number] for EVANS ERAZO [id number] 16:35:00 Test Item Value Reference Range Interpretation Comments MAGNESIUM (BEAKER) 2.3 mg/dL 1.6-2.6 Specimen slightly (test code = 627) hemolyzed Mixer Crane Operator ID - [id number] 16:35:00 Test Item Value Reference Range Interpretation Comments POTASSIUM (BEAKER) 3.7 meq/L 3.5-5.1 Specimen slightly (test code = 379) hemolyzed Mixer Crane Operator ID - [id number] 16:35:00 Test Item Value Reference Range Interpretation Comments SODIUM (BEAKER) (test code = 381) 138 meq/L 136-145 Mixer Crane Operator ID - DBTranscranial Doppler Complete (TCD)2020-12-31 16:25:13 Heraclio Davila MD 01/04/2021 11:00 [facility]-Transcranial Doppler Report Referring physician: Dr. Martinez Indication: aSAH Maximal estimated mean blood flow velocities (cm / sec): R EC ICA 38 L EC ICA 36 R Ophthalmic - L Ophthalmic - R MCA 80 R ACA53 R ICA R GELATIN POWDER MIXER 64 L MCA 67 L PABLO 74 L ICA L GELATIN POWDER MIXER 48 R vertebral 25 L vertebral 27 Basilar 28 Lindegaard (R MCA:R ECICA) 2.11 Lindegaard (L MCA:L ECICA) 1.87 Post bleed day #: 3 Velocity Range Thompson Elevated velocity = 90 - 119 cm/sec Mild vasospasm = 120 - 159 cm/sec Moderate vasospasm = 160 - 199 cm/sec Severe vasospasm = ? 200 cm/sec Interpretation:Velocities within acceptable range. Clinical Cor relation is recommended. I performed the procedure and reviewed records, and agree with documentation above. .[facility] CenterRAD, ABDOMEN/KUB, 1 VIEW [id number] 13:56:00Reason for exam:->check placement of feeding tubeShould this be performed at the bedside?->Yes [facility] : 1945 Sex: FFINAL REPORT RAD, ABDOMEN/KUB, 1 VIEW AP COMPARISON: December 28, 2020 I NDICATION: check placement of feeding tube IMPRESSION:A feeding tube has been placed. The distal tipprojects over the antrum. The visible bowel gas pattern is unremarkable. Signed: JR Mcmanus Robert MDReport Verified Date/Time: 12/31/2020 13:56:31 Reading Location: [facility] Radiology Reading Room XR abdomen / KUB 1 [id number] 13:56:00Interface, External Ris In - 12/31/2020 1:58 PM CDTFINAL REPORT RAD, ABDOMEN/KUB, 1 VIEW AP COMPARISON: December 28, 2020 INDICATION: check placement of feeding tube IMPRESSION:A feeding tube has been placed. The distal tip projects over the antrum. The visible bowel gas pattern is unremarkable. Signed: JR Mcmanus Robert MDReport Verified Date/Time: 12/31/2020 13:56:31 Reading Location: [facility] Radiology [facility] [id number] 12:58:00 Test Item Value Reference Range Interpretation Comments POC-GLUCOSE METER 127 mg/dL 70-110 H : TESTED A T [facility] 6720 (BEAKER) (test code = ABDIRAHMANKIERAN LONG ID, 1538) [id number]: Mixer Crane Operator/Techni marielos ID = [id number] for An roni (pca2), Jaye [id number] 06:49:00 Test Item Value Reference Range Interpretation Comments MAGNESIUM (BEAKER) 2.0 mg/dL 1.6-2.6 Specimen slightly (test code = 627) hemolyzed Mixer Crane Operator ID - ADMINBASIC METABOLIC [id number] 04:34:00 Test Item Value Reference Range Interpretation Comments SODIUM (BEAKER) (test 136 meq/L 136-145 code = 381) POTASSIUM (BEAKER) 3.5 meq/L 3.5-5.1 Specimen slightly (test code = 379) hemolyzed CHLORIDE (BEAKER) 109 meq/L 98-107 H (test code = 382) CO2 (BEAKER) (test 17 meq/L 22-29 L code = 355) BLOOD UREA NITROGEN 11 mg/dL 7-21 (BEAKER) (test code = 354) CREATININE (BEAKER) 0.66 mg/dL 0.57-1.25 Specimen slightly (test code = 358) hemolyzed GLUCOSE RANDOM 125 mg/dL 70-105 H (BEAKER) (test code = 652) CALCIUM (BEAKER) 7.9 mg/dL 8.4-10.2 L (test code = 697) EGFR (BEAKER) (test INSUFFIC IENT CLINICAL code = 1092) DATA TO CALCULA TE ESTIMATED GFR. Mixer Crane Operator ID - ADMINCBC W/PLT COUNT & AUTO [id number] 04:06:00 Test Item Value Reference Range Interpretation Comments WHITE BLOOD CELL COUNT (BEAKER) 15.9 K/ L 3.5-10.5 H (test code = 775) RED BLOOD CELL COUNT (BEAKER) 2.59 M/ L 3.93-5.22 L (test code = 761) HEMOGLOBIN (BEAKER) (test code = 8.2 GM/DL 11.2-15.7 L 410) HEMATOCRIT (BEAKER) (test code = 24.6 % 34.1-44.9 L 411) MEAN CORPUSCULAR VOLUME (BEAKER) 95.0 fL 79.4-94.8 H (test code = 753) MEAN CORPUSCULAR HEMOGLOBIN 31.7 pg 25.6-32.2 (BEAKER) (test code = 751) MEAN CORPUSCULAR HEMOGLOBIN CONC 33.3 GM/DL 32.2-35.5 (BEAKER) (test code = 752) RED CELL DISTRIBUTION WIDTH 13.0 % 11.7-14.4 (BEAKER) (test code = 412) PLATELET COUNT (BEAKER) (test 219 K/CU MM 150-450 code = 756) MEAN PLATELET VOLUME (BEAKER) 9.4 fL 9.4-12.3 (test code = 754) NUCLEATED RED BLOOD CELLS 0 /100 WBC 0-0 (BEAKER) (test code = 413) NEUTROPHILS RELATIVE PERCENT 80 % (BEAKER) (test code = 429) LYMPHOCYTES RELATIVE PERCENT 13 % (BEAKER) (test code = 430) MONOCYTES RELATIVE PERCENT 6 % (BEAKER) (test code = 431) EOSINOPHILS RELATIVE PERCENT 0 % (BEAKER) (test code = 432) BASOPHILS RELATIVE PERCENT 0 % (BEAKER) (test code = 437) NEUTROPHILS ABSOLUTE COUNT 12.61 K/ L 1.56-6.13 H (BEAKER) (test code = 670) LYMPHOCYTES ABSOLUTE COUNT 2.05 K/ L 1.18-3.74 (BEAKER) (test code = 414) MONOCYTES ABSOLUTE COUNT (BEAKER) 0.99 K/ L 0.24-0.36 H (test code = 415) EOSINOPHILS ABSOLUTE COUNT 0.04 K/ L 0.04-0.36 (BEAKER) (test code = 416) BASOPHILS ABSOLUTE COUNT (BEAKER) 0.05 K/ L 0.01-0.08 (test code = 417) IMMATURE GRANULOCYTES-RELATIVE 1 % 0-1 PERCENT (BEAKER) (test code = 2801) POCT-GLUCOSE [id number] 00:19:00 Test Item Value Reference Range Interpretation Comments POC-GLUCOSE METER 112 mg/dL 70-110 H : [facility] ([facility] (test code = JOAN LONG [place], 1538) 38171: Mixer Crane Operator/Techni marielos ID = [id number] for Deysi Thompson Prepare Leuko-Red [id number] 23:54:00 Test Item Value Reference Range Interpretation Comments CROSSMATCH (test code = 2264) COMPATIBLE Unit ABO (test code = B Pos 6061166) UNIT NUMBER (test code = [id number] 934-0) Status (test code = 3168205) TX_TIMEINCHART Blood Bank Product (test code RED BLOOD CELLS = 2263) PRODUCT CODE (test code = S6565V88 933-2) [facility] CenterHEMOGLOBIN AND [id number] 21:07:00 Test Item Value Reference Range Interpretation Comments HEMOGLOBIN (BEAKER) (test code = 8.3 GM/DL 11.2-15.7 L 410) HEMATOCRIT (BEAKER) (test code = 24.7 % 34.1-44.9 L 411) Mixer Crane Operator ID - [id number] W VID 2-12 HR CONTINUOUS MONITORING (VEEG)2020-12-30 18:16:00BillingAL[facility]Name: [facility] : 1945 Sex: [facility] Video EEG REPORT NAME: Sonu Arellano DATE(s) OF TEST: 12/30/2020 DATE OF REPORT: 12/30/2020 ACC: [id number] Start time/date: 12/30/20, 8:12 am Stop time/date: 12/30/20, 4:28 pm ICD-10: R56.9 CPT Code: 65161 HISTORY: 75 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 DESCRIPTION OF RECORD: No posterior dominant rhythm was seen. The background is asymmetric with admixed theta anddelta on the left side which is sharply contoured with a poor anterior to posterior gradient with att enuation of all frequencies over the right side. State changes and reactivity were seen but no stageII sleep structures were present. INTERICTAL EPILEPTIFORM DISCHARGES: Frequent 7-10 second runs of 1-2 Hz lateralized rhythmic delta activity at times with superimposed 1 Hz sharply contoured blunted delta seen over the right frontocentral region without definite evolution (LRDA +S). EVENTS/SEIZURES: None HV: Hyperventilation was not done. PHOTIC STIMULATION: Photic stimulation was not performed during this recording ELECTROCARDIOGRAM EVENTS: Normal Sinus Rhythm IMPRESSION: This is an abnormal video-EEG study due to the presence of Lateralized rhythmic delta activity with sharply contoured blunted delta, regional right fronto-central (LRDA+S) Continuous slow, generalized and attenuated right hemisphere Asymmetry all frequencies, decreased right hemisphere CLINICAL CORRELATION: This day 3 of continuous EEG monitoring is suggestive of a moderate degree of encephalopathy with superimposed focal dysfunction over the right hemisphere. Lateralized rhythmic delta activity + S is a marker of acute cortical irritability that has been associated with an increased risk of electrographic seizures. No electrographic seizures have been captured. There is no significant change from the prior epoch. Neurophysiology/Epilepsy Fellow Echo Castrejon MD I have reviewed this electroencephalogram, discussed the findings with the fellow, addended the fellow's report and agree with the overall assessment. Frankie Kitchen MD, MS Clinical Neurophysiology/Epilepsy Attending EEG 2-12 HR Continuous Monitoring with [id number] 18:16:00Interface, External Ris In - 12/30/2020 6:16 PM [facility] Video EEG REPORT NAME: Sonu Arellano DATE(s) OF TEST: 12/30/2020 DATE OF REPORT: 12/30/2020 ACC: [id number] Start time/date: 12/30/20, 8:12 am Stop time/date: 12/30/20, 4:28 pm ICD-10: R56.9 CPT Code: 03992 HISTORY: 75 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 MEDICATIONS THAT COULD AFFECT EEG: Yoseph TECHNICAL SUMMARY: This [facility] EEG recorded with 32 input channels reviewed with bipolar and referential montages using the modified combinatorial system nomenclature. DESCRIPTION OF RECORD: No posterior dominant rhythm was seen. The background is asymmetric with admixed theta and delta on the left side which is sharply contoured with a poor anterior to posterior gradient with attenuation of all frequencies over the right side. State changes and reactivity were seen but no stage II sleep structures were present. INTERICTAL EPILEPTIFORM DISCHARGES: Frequent 7-10 second runs of 1-2 Hz lateralized rhythmic delta activity at times with superimposed 1 Hz sharply contoured blunted delta seen over the right frontocentral region without definite evolution (LRDA +S). EVENTS/SEIZURES: None HV: Hyperventilation was not done. PHOTICSTIMULATION: Photic stimulation was not performed during this recording ELECTROCARDIOGRAM EVENTS: Normal Sinus Rhythm IMPRESSION: This is an abnormal video-EEG study due to the presence of Lateralized rhythmic delta activity with sharply contoured blunted delta, regional right fronto-central (LRDA+S) Continuous slow, generalized and attenuated right hemisphere Asymmetry all frequencies, decrea sed right hemisphere CLINICAL CORRELATION: This day 3 of continuous EEG monitoring is suggestiveof a moderate degree of encephalopathy with superimposed focal dysfunction over the right hemisphere. Lateralized rhythmic delta activity + S is a marker of acute cortical irritability that has been associated with an increased risk of electrographic seizures. No electrographic seizures have been captured. There is no significant change from the prior epoch. Neurophysiology/Epilepsy Fellow Echo Castrejon MD I have reviewed this electroencephalogram, discussed the findings with the fellow, addended the fellow's report and agree with the overall assessment. Frankie Kitchen MD, MS Clinical Neurophysiology/Epilepsy Attending [facility] 2020-12-30 17:35:00 Test Item Value Reference Range Interpretation Comments SODIUM (BEAKER) (test code = 381) 139 meq/L 136-145 Mixer Crane Operator ID - CHRISTINA WPOCT-GLUCOSE [id number] 17:22:00 Test Item Value Reference Range Interpretation Comments POC-GLUCOSE METER 116 mg/dL 70-110 H : TESTED A T [facility] 6720 (BEAKER) (test code = JOAN LONG ID, 1538) [id number]: Mixer Crane Operator/Techni marielos ID = [id number] for SEBASTIÁN STARKS Transcranial Doppler Complete (TCD)2020-12-30 16:35:00Julian Epstein MD 01/03/2021 4:[facility] Indication: aSAH Maximal estimated mean blood flow velocities (cm / sec): R EC ICA 39 L EC ICA 31 R Ophthalmic L Ophthalmic R MCA 80 R PABLO 49 R ICA R GELATIN POWDER MIXER 58 L MCA 58 L PABLO L ICA L GELATIN POWDER MIXER R vertebralL vertebral 43 Basilar 34 Lindegaard (R MCA:R ECICA) 2.05 Lindegaard (L MCA:L ECICA) 1.87 Post bleedday #: 2 Velocity Range Thompson Elevated velocity = 90 - 119 cm/sec Mild vasospasm = 120 - 159 cm/sec Moderate vasospasm = 160 - 199 cm/sec Severe vasospasm = ? 200 cm/sec Interpretation:Velocities within acceptable ranges.Clinical Correlation is recommended.[facility] CenterCT, BRAIN, WITHOUT [id number] 12:31:00Unlisted Reason for Exam - Click Yes and Enter Reason Below- >YesUnlisted Reason for Exam->Leftpupil large [facility] : 1945 Sex: FFINAL REPORT CT, BRAIN, WITHOUT CONTRAST CLINICAL INDICATION: Unlist ed Reason for ExamLeft pupil large COMPARISON: December 29, 2020 TECHNIQUE: Noncontrast axial CT imaging of the brain and skull. DOSE REDUCTION: Dose modulation, iterative reconstruction, and/or weight-based adjustment of the mA/kV was utilized to reduce the radiation dose to as low as reasonably achiev able. IMPRESSION: Improving midline shift measuring 5 mm leftward compared to 8 mm on the prior date. Surgical changes in the right hemisphere and associated subarachnoid blood are grossly stable. No interval ischemic injury. No left- sided herniation to explain the provided symptom. Decreasing pneumocephalus. Stable calvarial and vascular surgical changes. Signed: JR Mcmanus Robert MDReport Verified Date/Time: 12/30/2020 12:31:25 Reading Location: [address] Neuro Reading Room POCT-GLUCOSE [id number] 12:13:00 Test Item Value Reference Range Interpretation Comments POC-GLUCOSE METER 122 mg/dL 70-110 H : TESTED A T [facility] 6720 ([facility]) (test code = JOAN LONG ID, 1538) [id number]: Mixer Crane Operator/Techni marielos ID = [id number] for SEBASTIÁN STARKS EEG W VID 12-26 HR CONTINUOUS MONITORING (VEEG)2020-12-30 11:38:00Billing 12/29/2020[facility] : 1945 Sex: [facility] Video EEG REPORT NAME: Sonu Arellano DATE(s) OF TEST: 12/28/2020 - 12/30/2020 DATE OF REPORT: 12/30/2020 ACC: [id number] [id number] Start time/date: 12/29/20, 1:34 pm Stop time/date: 12/30/20, 8:12 am ICD- 10: R56.9 CPT Code: 71607 HISTORY: 75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 MEDICATIONS THAT COULD AFFECT EEG: Kearistidesra TECHNICAL SUMMARY: This is [place] [facility] [place] EEG recorded with 32 input channels reviewed with bipolar and referential montages using the modified combinatorial system nomenclature. DESCRIPTION OF RECORD: No posterior dominant rhythm was seen. The background is asymmetric with admixed theta and delta on the left side which is sharply contoured with a poor anterior to posterior gradient with attenuation of all frequencies over the right side. The degree of attenuation is less compared to the prior epoch. State changes and reactivity were seen but no stage II sleep structures werepresent. INTERICTAL EPILEPTIFORM DISCHARGES: Frequent 7-10 second runs of 1-2 Hz lateralized rhyth naresh delta activity at times with superimposed 1 Hz sharply contoured blunted delta seen over the right frontocentral region without definite evolution (LRDA +S). EVENTS/SEIZURES: None HV: Hyperventilation was not done. PHOTIC STIMULATION: Photic stimulation was not performed during this recording ELECTROCARDIOGRAM EVENTS: Normal Sinus Rhythm IMPRESSION: This is an abnormal video-EEG study due to the presence of Lateralized rhythmic delta activity with sharply contoured blunted delta, regional right fronto-central (LRDA+S) Continuous slow, generalized and attenuated right hemisphereAsymmetry all frequencies, decreased right hemisphere CLINICAL CORRELATION: This day 2 of continuous EEG monitoring is suggestive of a moderate degree of encephalopathy with superimposed focal dysfunction over the right hemisphere. The degree of overall encephalopathy and right hemispheric attenuation has improved compared to the prior epoch. Lateralized rhythmic delta activity + S is a marker ofacute cortical irritability that has been associated with an increased risk of electrographic seizures. No electrographic seizures have been captured. Neurophysiology/Epilepsy Fellow Echo Castrejon MD I have reviewed this electroencephalogram, discussed the findings with the fellow, addended the fellow's report and agree with the overall assessment. Frankie Kitchen MD, MS Clinical Neurophysiology/Epilepsy Attending EEG 12-26 HR Continuous Monitoring with [id number] 11:38:00Interface, External Ris In - 12/30/2020 11:39 AM [facility] Video EEG REPORT NAME: Sonu Arellano DATE(s) OF TEST: 12/28/2020 - 12/30/2020 DATE OF REPORT: 12/30/2020 ACC: [id number] [id number] Start time/date: 12/29/20, 1:34 pm Stop time/date: 12/30/20, 8:12 am ICD-10: R56.9 CPT Code: 14288 HISTORY: 75 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 MEDICATIONS THAT COULD AFFECT EEG: Yoseph TECHNICAL SUMMARY: This is a [facility] [place] EEG recorded with 32 input channels reviewed with bipolar and referential montages using the modified combinatorial system nomenclature. DESCRIPTION OF RECORD: No posterior dominant rhythm was seen. The background is asymmetric with admixed theta and delta on the left side which is sharply contoured with a poor anterior to posterior gradient with attenuation of all frequencies over the right side. The degree of attenuation is less compared to the prior epoch. State changes and reactivity wereseen but no stage II sleep structures were present. INTERICTAL EPILEPTIFORM DISCHARGES: Frequent 7-10 second runs of 1-2 Hz lateralized rhythmic delta activity at times with superimposed 1 Hz sharply contoured blunted delta seen over the right frontocentral region without definite evolution (LRDA +S). EVENTS/SEIZURES: None HV: Hyperventilation was not done. PHOTIC STIMULATION: Photic stimulation was not performed during this recording ELECTROCARDIOGRAM EVENTS: Normal Sinus Rhythm IMPRESSION: This is an abnormal video-EEG study due to the presence of Lateralized rhythmic delta activity with sharply contoured blunted delta, regional right fronto-central (LRDA+S) Continuous slow, generalized and attenuated right hemisphere Asymmetry all frequencies, decreased right hemisphere CLINICAL CORRELATION: This day 2 of continuous EEG monitoring is suggestive of a moderate degree of e ncephalopathy with superimposed focal dysfunction over the right hemisphere. The degree of overall encephalopathy and right hemispheric attenuation has improved compared to the prior epoch. Lateralizedrhythmic delta activity + S is a marker of acute cortical irritability that has been associated withan increased risk of electrographic seizures. No electrographic seizures have been captured. Neur ophysiology/Epilepsy Fellow Echo Castrejon MD I have reviewed this electroencephalogram, discussed the findings with the fellow, addended the fellow's report and agree with the overall assessment. Frankie Kitchen MD, MS Clinical Neurophysiology/Epilepsy Attending [facility] W/Doppler(CW/PW/Color)2020-12-30 11:19:34Ejection FractionSLEH ECHO HEARTLAB MKCKESSON CPACSInterface, External Ris In - 12/30/2020 11:19 AM CDTTransthoracic Echocardiography Report (TTE) Demographics Patient Name JOSLYNA, Date of Study 12/29/2020 SONU Gender Female Visit Number [id number] Race Unknown Room Number 7409 Number Date of 1945 Referring Sal Wooten Physician Andre Age 75 year(s) Fertilizer Processing Supervisor Nica Baltazar, [facility] Broke Worker Sancho Felipe Interpreting Chepe Monet MD Physician Procedure Type of Study TTE procedure:2DECHO W DOPPLER(CW/PW/COLOR) (STAT) Indications:Hypotension or hemodynamic instability.Clinical HistoryHGB 6.1HCT 18.3 %SAHHTNHeight: 64 inches Weight: 64.86 kg (143 lbs) BSA: 1.7 m^2 BMI: 24.55 kg/m^2HR: 99 bpm BP: 106/56 mmHg Summary Theleft ventricle is chamber size (by vol index) is normal (female - LVED vol - 29-61ml/m2). Normal LV wall thickness. Global LV systolic function hyperdynamic . Estimated LVEF by qualitative assessment is increased (>70%) . High (cardiac index >4 L/min/m2) cardiac output state at rest is noted. Oth erwise, essentially normal exam. No significant valve disease detected. The estimated RA pressure by[employer] dynamics 5-10mmHg . Signature Findings Left Ventricle The left ventricle is chamber size (by vol index) is normal (female - LVED vol - 29-61ml/m2). Normal LV wall thickness. Global LV systolic function hyperdynamic . Estimated LVEF by qualitative assessment is increased (>70%) . High (cardiac index >4 L/min/m2) cardiac output state at rest is noted. Left Atrium LA size is normal . Right Ventricle Normal right ventricle structure and function. Right Atrium Normal right atrium. Aortic Valve Normal AoV structure. Mitral Valve Normal MV structure. Tricuspid Valve Mild tricuspid regurgitation. Estimated peak systolic PA pressure is 40-45 mmHg (mild pulmonary hypertension) . Pulmonic Valve Normal PV structure and function by limited views and Doppler. Aorta Aortic root size (SInus of Valsalva diameter) is normal . Pericardium Noevidence of pericardial effusion. IVC/SVC/PA/PV/Pleural The estimated RA pressure by IVC dynamics 5-10mmHg . Chambers/Structures Left Atrium LA Volume: 34.74 ml LA Area: 14.42 cm^2 LA Vol. Index: 20 ml/m^2 Left Ventricle LVIDd: 4.06 cm LVEDV:72.34 ml LV Septum Diastolic: 0.83 cm LV PW Diastolic: 0.9 cm LVEDV Walker's:55.04 ml LV Length: 7.16 cm LVESV Walker's:19.52 ml LVEF Walker's: 64.5 % LVEDVI: 32 ml/m^2 LVESVI: 11 ml/m^2 LVOTDiameter: 1.9 cm Aorta Ao Root S of Anika.: 2.9 cm Ascending Aorta: 2.91 cm Doppler/Quantitative Measurements Mitral Valve MV Peak E-Wave: 1.13 m/s MV Peak A-Wave: 0.98 m/s E/A Ratio: 1.16 Peak Gradient: 5.14 mmHg Deceleration Time: 205 msec MV Morgan. Peak: Aortic ValvePeak Velocity: 1.85 m/s Mean Velocity: 1.23 m/s Peak Gradient: 13.68 mmHg Mean Gradient: 7.07 mmHg AV Area (continuity): 2.23 cm^2 AV VTI: 36.12 cm AV DVI: 0.79 LVOT Peak Velocity: 1.62 m/s Peak Gradient: 10.44 mmHg Mean Velocity: 1.05 m/s Mean Gradient: 5.32 mmHg LVOT Diameter: 1.9 cm LVOT VTI: 28.46 cm LVOT Area: 2.84 cm^2 LVOT SV:80.65 ml LVOT CO: 7.98 l/min LVOT CI: 4.69 l/min/m^2 Tricuspid ValveTR Velocity: 2.64 m/s TR Gradient: 27.88 mmHgSanta [facility] Hospital Medical CenterPROCALCITONIN 2020-12-30 11:08:00 Test Item Value Reference Range Interpretation Comments PROCALCITONIN (BEAKER) (test code 0.72 ng/mL <0.05 H = 3036) SEPSIS RISK (ng/mL)Low: 0.05-0.50Intermediate: 0.51-2.00High: >=2.01Urinalysis Microscopic [id number] 10:55:00 Test Item Value Reference Range Interpretation Comments RBC, UA (test 12 See_Comment [Automated me ssage] code = 34203-5) The system [employer] generated this result transmitted ref erence range: /HPF. Th e reference range was not used to int erpret this result as normal/abnormal . WBC, UA (test 1 See_Comment [Automated me ssage] code = 5821-4) The system [facility] generated this result transmitted ref erence range: /HPF. Th e reference range was not used to int erpret this result as normal/abnormal . Bacteria, UA None Seen (test code = 55684-1) Mucus (test Rare code = 8247-9) Squam Epithel, <1 See_Comment [Automated m essage] UA (test code = The system [facility] 06946-1) generated this result transmitted ref erence range: /HPF. Th e reference range was not used to int erpret this result as normal/abnormal . Crystals, Urine None Seen (test code = 65190-0) NETTIE (test code Mixer Crane Operator ID - tech = NETTIE) [facility] CenterURINALYSIS [id number] 10:55:00 Test Item Value Reference Range Interpretation Comments RBC UA (BEAKER) (test code = 519) 12 /HPF WBC UA (BEAKER) (test code = 520) 1 /HPF BACTERIA (BEAKER) (test code = 517) None Seen MUCUS (BEAKER) (test code = 1574) Rare SQUAMOUS EPITHELIAL (BEAKER) (test < /HPF code = 516) CRYSTALS, URINE (BEAKER) (test code None Seen = 1521) Mixer Crane Operator ID - techUrinalysis with Microscopic If [id number] 10:20:00 Test Item Value Reference Range Interpretation Comments Color, UA (test code = Light Yellow 5778-6) Clarity, UA (test code = Clear 5767-9) Specific Lawrence, UA (test 1.020 1.001-1.035 code = 5811-5) pH, UA (test code = 6.0 5.0-8.0 5803-2) Protein, UA (test code = 30 mg/dL Negative A 16425-3) Glucose, UA (test code = Negative Negative 365) Ketones, UA (test code = Negative Negative 2514-8) Bilirubin, UA (test code = Negative Negative 32222-4) Blood, UA (test code = Small Negative A 21861-4) Nitrite, UA (test code = Negative Negative 5802-4) Leukocytes, UA (test code Negative Negative = 5799-2) Urobilinogen, UA (test 0.2 mg/dL 0.2-1 code = 70541-7) Specimen Source (test code = 2795) NETTIE (test code = NETTIE) Mixer Crane Operator ID - [auto] Lab Interpretation (test Abnormal code = 96298-7) [facility] CenterURINALYSIS WITH MICROSCOPIC IF [id number] 10:20:00 Test Item Value Reference Range Interpretation Comments COLOR (BEAKER) (test code = 470) Light Yellow CLARITY (BEAKER) (test code = Clear 469) SPECIFIC GRAVITY UA (BEAKER) 1.020 1.001-1.035 (test code = 468) PH UA (BEAKER) (test code = 467) 6.0 5.0-8.0 PROTEIN UA (BEAKER) (test code = 30 mg/dL Negative A 464) GLUCOSE UA (BEAKER) (test code = Negative Negative 365) KETONES UA (BEAKER) (test code = Negative Negative 371) BILIRUBIN UA (BEAKER) (test code Negative Negative = 462) BLOOD UA (BEAKER) (test code = Small Negative A 461) NITRITE UA (BEAKER) (test code = Negative Negative 465) LEUKOCYTE ESTERASE UA (BEAKER) Negative Negative (test code = 466) UROBILINOGEN UA (BEAKER) (test 0.2 mg/dL 0.2-1.0 code = 463) SOURCE(BEAKER) (test code = 2795) Mixer Crane Operator ID - [auto][id number] 09:53:00 Test Item Value Reference Range Interpretation Comments MAGNESIUM (BEAKER) 2.2 mg/dL 1.6-2.6 Specimen slightly (test code = 627) hemolyzed Mixer Crane Operator ID - CHRISTINA WCBC W/PLT COUNT & AUTO [id number] 09:48:00 Test Item Value Reference Range Interpretation Comments WHITE BLOOD CELL COUNT (BEAKER) 20.5 K/ L 3.5-10.5 H (test code = 775) RED BLOOD CELL COUNT (BEAKER) 2.76 M/ L 3.93-5.22 L (test code = 761) HEMOGLOBIN (BEAKER) (test code = 8.6 GM/DL 11.2-15.7 L 410) HEMATOCRIT (BEAKER) (test code = 25.6 % 34.1-44.9 L 411) MEAN CORPUSCULAR VOLUME (BEAKER) 92.8 fL 79.4-94.8 (test code = 753) MEAN CORPUSCULAR HEMOGLOBIN 31.2 pg 25.6-32.2 (BEAKER) (test code = 751) MEAN CORPUSCULAR HEMOGLOBIN CONC 33.6 GM/DL 32.2-35.5 (BEAKER) (test code = 752) RED CELL DISTRIBUTION WIDTH 13.3 % 11.7-14.4 (BEAKER) (test code = 412) PLATELET COUNT (BEAKER) (test 174 K/CU MM 150-450 code = 756) MEAN PLATELET VOLUME (BEAKER) 9.6 fL 9.4-12.3 (test code = 754) NUCLEATED RED BLOOD CELLS 0 /100 WBC 0-0 (BEAKER) (test code = 413) (CELLAVISION MANUAL DIFF)2020-12-30 09:48:00 Test Item Value Reference Range Interpretation Comments NEUTROPHILS - REL 81 % (CELLAVISION)(BEAKER) (test code = 2816) LYMPHOCYTES - REL 16 % (CELLAVISION)(BEAKER) (test code = 2817) MONOCYTES - REL 3 % (CELLAVISION)(BEAKER) (test code = 2818) NEUTROPHILS - ABS 16.61 K/ul 1.56-6.13 H (CELLAVISION)(BEAKER) (test code = 2830) LYMPHOCYTES - ABS 3.28 K/ul 1.18-3.74 (CELLAVISION)(BEAKER) (test code = 2831) MONOCYTES - ABS 0.62 K/uL 0.24-0.36 H (CELLAVISION)(BEAKER) (test code = 2832) TOTAL COUNTED (BEAKER) (test code 100 = 1351) RBC MORPHOLOGY (BEAKER) (test code Normal = 762) WBC MORPHOLOGY (BEAKER) (test code Normal = 487) PLT MORPHOLOGY (BEAKER) (test code Normal = 486) ARTIFACT (CELLAVISION)(BEAKER) Present (test code = 3432) PLATELET CONCENTRATION Adequate (CELLAVISION)(BEAKER) (test code = 3438) Mixer Crane Operator ID - Margarita OverholtUser comments: Slide comments:POCT-GLUCOSE METER 2020-12-30 07:07:00 Test Item Value Reference Range Interpretation Comments POC-GLUCOSE METER 152 mg/dL 70-110 H : TESTED A T [facility] 6720 (BEAKER) (test code = JOAN LONG ID, [id number]) [id number]: Mixer Crane Operator/Techni marielos ID = [id number] for [facility], [place] BASIC METABOLIC [id number] 06:30:00 Test Item Value Reference Range Interpretation Comments SODIUM (BEAKER) (test 140 meq/L 136-145 code = 381) POTASSIUM (BEAKER) 3.9 meq/L 3.5-5.1 (test code = 379) CHLORIDE (BEAKER) 111 meq/L 98-107 H (test code = 382) CO2 (BEAKER) (test 18 meq/L 22-29 L code = 355) BLOOD UREA NITROGEN 8 mg/dL 7-21 (BEAKER) (test code = 354) CREATININE (BEAKER) 0.64 mg/dL 0.57-1.25 (test code = 358) GLUCOSE RANDOM 135 mg/dL 70-105 H (BEAKER) (test code = 652) CALCIUM (BEAKER) 8.2 mg/dL 8.4-10.2 L (test code = 697) EGFR (BEAKER) (test INSUFFIC IENT CLINICAL code = 1092) DATA TO CALCULA TE ESTIMATED GFR. Mixer Crane Operator ID - CHRISTINA SANDERSON, CHEST, 1 VIEW, NON [id number] 04:02:00Reason for exam:->IntubatedShould this be performed at the bedside?->Yes [facility] 1945 Sex: FFINAL REPORT CLINICAL INDICATION: Support lines. Comparison: 12/29/2020 The cardiomediastinal contours are stable. The upper lungs are clear. Central pulmonary vascular prominence and bilateral parenchymal and pleural opacities are otherwise similar to previous. There isno pneumothorax. Support lines are stable. Signed: Gissell Moore MDReport Verified Date/Time: 12/30/2020 04:02:02 [id number] 01:05:00 Test Item Value Reference Range Interpretation Comments SODIUM (NAZARIO) (test code = 381) 142 meq/L 136-145 Mixer Crane Operator ID - DBPOCT-GLUCOSE [id number] 00:20:00 Test Item Value Reference Range Interpretation Comments POC-GLUCOSE METER 144 mg/dL 70-110 H : TESTED A T [facility] 6720 (NAZARIO) (test code = JOAN ACOSTA, 1538) [address]: Mixer Crane Operator/Techni marielos ID = [id number] for [facility], [place] HEMOGLOBIN AND [id number] 17:28:00 Test Item Value Reference Range Interpretation Comments HEMOGLOBIN (BEAKER) (test code = 8.0 GM/DL 11.2-15.7 L 410) HEMATOCRIT (BEAKER) (test code = 23.5 % 34.1-44.9 L 411) Mixer Crane Operator ID - 6000POCT-GLUCOSE [id number] 17:27:00 Test Item Value Reference Range Interpretation Comments POC-GLUCOSE METER 148 mg/dL 70-110 H : Notified RN/MD: (NAZARIO) (test code = TESTED AT [facility] 5125 7540) [facility], [address]: Mixer Crane Operator/Techni marielos ID = [id number] for LL EVANS DENT EEG W VID 12-26 HR CONTINUOUS MONITORING (VEEG)2020-12-29 17:12:00Reason for exam:->ICH concern for seizure [facility] : 1945 Sex: [facility] Video EEG REPORT NAME: Sonu ArellanoMRN: [id number]([id number]) OF TEST: 12/28/2020 - 12/29/2020ATE OF REPORT: 12/29/2020 ACC: [id number]: 21- 1178 Start time/date: 12/28/20, 1111pStop time/date: 12/29/20, 134pICD-10: R56.9CPT Code: 51196 HISTORY: 75 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 MEDICATIONS THAT COULD AFFECT EEG: Fosphenytoin, Keppra TECHNICAL SUMMARY:This is [place] [facility] [place] [facility] EEG recorded with 32 input channels reviewed with bipolar and referential montages using the modified combinatorial system nomenclature. DESCRIPTION OF RECORD:During this study, patient is poorly responsive, intubated but not on sedation. No posterior dominantrhythm was seen. The background is asymmetric with admixed theta and delta on the left side which issharply contoured with a poor anterior to posterior gradient with severe attenuation of all frequencies over the right side. State changes and reactivity were seen but no stage II sleep structures werepresent. INTERICTAL EPILEPTIFORM DISCHARGES: At times, typically during times of stimulation 1-2 Hz lateralized rhythmic delta activity (LRDA) was seen over the right fronto central region lasting for 5-7 seconds without definite evolution. EVENTS/SEIZURES: None HV: Hyperventilation was not done. PHOTIC STIMULATION: Photic stimulation was done during baseline EEG recording, from 1-33 Hz; no photic driving was seen; photoparoxysmal responses were absent. ELECTROCARDIOGRAM EVENTS: Normal Sinus Rhythm IMPRESSION: This is an abnormal video-EEG study due to the presence ofLateralized rhythmic delta activity, regional right fronto-central (LRDA)Continuous slow, generalized and attenuated right hemisphereAsymmetry all frequencies, decreased right hemisphere CLINICAL CORRELATION:This day 1 of continuous EEG monitoring is suggestive of a moderate to severe degree of encephalopathy with superimposed focaldysfunction over the right hemisphere. There has been improvement in the degree of right hemispheric dysfunction. Lateralized rhythmic delta activity is a marker of acute cortical irritability that hasbeen associated with an increased risk of electrographic seizures. No electrographic seizures have been captured. Neurophysiology/Epilepsy FellowPomable Castrejon MD I have reviewed this electroencephalogram, discussed the findings with the fellow, addended the fellow's report and agree with the overall assessment. Frankie Kitchen MD, MSClinical Neurophysiology/Epilepsy Attending EEG 12-26 HR Continuous Monitoring with [id number] 17:12:00Interface, External Ris In - 12/29/2020 5:12 PM [facility] Video EEG REPORT NAME: Sonu ArellanoMRN: [id number](s) OF TEST: 12/28/2020 - 12/29/2020ATE OF REPORT: 12/29/2020 ACC: [id number]: 21- 1178 Start time/date: 12/28/20, 1111pStop time/date: 12/29/20, 134pICD-10: R56.9CPT Code:87160 HISTORY: 75 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 MEDICATIONS THAT COULD AFFECT EEG: Fosphenytoin, Keppra TECHNICAL SUMMARY:This is a [facility] [place] [facility] EEG recorded with 32 input channels reviewed with bipolar and referential montages using the modified combinatorial system nomenclature. DESCRIPTION OF RECORD:During this study, patient is poorly responsive, intubatedbut not on sedation. No posterior dominant rhythm was seen. The background is asymmetric with admixed theta and delta on the left side which is sharply contoured with a poor anterior to posterior gradient with severe attenuation of all frequencies over the right side. State changes and reactivity wereseen but no stage II sleep structures were present. INTERICTAL EPILEPTIFORM DISCHARGES: At times, typically during times of stimulation 1-2 Hz lateralized rhythmic delta activity (LRDA) was seen over the right fronto central region lasting for 5-7 seconds without definite evolution. EVENTS/SEIZURES: None HV: Hyperventilation was not done. PHOTIC STIMULATION: Photic stimulation was done during baseline EEG recording, from 1-33 Hz; no photic driving was seen; photoparoxysmal responses were absent. ELEC TROCARDIOGRAM EVENTS: Normal Sinus Rhythm IMPRESSION: This is an abnormal video- EEG study due to thepresence ofLateralized rhythmic delta activity, regional right fronto-central (LRDA)Continuous slow,generalized and attenuated right hemisphereAsymmetry all frequencies, decreased right hemisphere CLINICAL CORRELATION:This day 1 of continuous EEG monitoring is suggestive of a moderate to severe degree of encephalopathy with superimposed focal dysfunction over the right hemisphere. There has been improvement in the degree of right hemispheric dysfunction. Lateralized rhythmic delta activity is a marker of acute cortical irritability that has been associated with an increased risk of electrographic s eizures. No electrographic seizures have been captured. Neurophysiology/Epilepsy FellowEcho Castrejon MD I have reviewed this electroencephalogram, discussed the findings with the fellow, addended the fellow's report and agree with the overall assessment. Frankie Kitchen MD, MSClinical Neurophysiology/Epilepsy Attending [facility] 2020-12-29 16:46:00 Test Item Value Reference Range Interpretation Comments SODIUM (BEAKER) (test code = 381) 144 meq/L 136-145 Mixer Crane Operator ID - BEN MPOCT-GLUCOSE [id number] 12:31:00 Test Item Value Reference Range Interpretation Comments POC-GLUCOSE METER 185 mg/dL 70-110 H : Notified RN/MD: (NAZARIO) (test code = TESTED AT [facility] 6720 1538) [facility], [address]: Mixer Crane Operator/Techni marielos ID = [id number] for EVANS ERAZO CT, CTANGIO [id number] 10:52:00Include non-contrast CTHUnlisted Reason for Exam - Click Yes and Enter Reason Below->YesUnlisted Reason for Exam- >aSAH s/p clipAL[facility]Name[facility] : 1945 Sex: FFINAL REPORT CT, CTANGIO BRAINBRAIN CT WITHOUT CONTRAST INDICATION: Unlisted Reason for ExamaSAH s/p clip COMPARISON: Noncontrast head CT December 28, 2020 TECHNIQUE:Rapidacquisition spiral images were obtained between the skull base and the cranial vertex during intravenous contrast infusion to reconstruct axial images and angiographic 3D maximum intensity projections (MIP). 3-D volumetric reformatted images were created at a dedicated workstation. Precontrast images of the brain were also obtained. DOSE REDUCTION: Dose modulation, iterative reconstruction, and/or weight-based adjustment of the mA/kV was utilized to reduce the radiation dose to as low as reasonably achievable. FINDINGS:CT BRAIN:Evolving surgical changes following open aneurysmal clipping in the region of the MCA bifurcation on the right. Decreasing pneumocephalus redistributing across the hemispheres with decreased midline shift, now measuring approximately 8 mm rightward at the level of the foramen of Monro. Persistent subarachnoid and intraventricular hemorrhage, also undergoing redistribution and evolution. White matter and ischemic changes are grossly stable. Osseous structures are unchanged. 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 Remaining intracranial vascular structures are stable and without contour irregularity to suggest vasospasm by CT. 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 IMPRESSION: Evolving surgical changes with decreasing midline shift (8 mm in the current examination compared to 9 mm prior). No visible residual filling of the treated aneurysm. No convincing evidence of vasospasm. Signed: JR Mcmanus Robert MDReport Verified Date/Time: 12/29/2020 10:52:22Reading Location: [address] Neuro Reading Room CBC W/PLT COUNT & AUTO [id number] 09:24:00 Test Item Value Reference Range Interpretation Comments WHITE BLOOD CELL COUNT (BEAKER) 12.2 K/ L 3.5-10.5 H (test code = 775) RED BLOOD CELL COUNT (BEAKER) 1.92 M/ L 3.93-5.22 L (test code = 761) HEMOGLOBIN (BEAKER) (test code = 6.1 GM/DL 11.2-15.7 L 410) HEMATOCRIT (BEAKER) (test code = 18.3 % 34.1-44.9 L 411) MEAN CORPUSCULAR VOLUME (BEAKER) 95.3 fL 79.4-94.8 H (test code = 753) MEAN CORPUSCULAR HEMOGLOBIN 31.8 pg 25.6-32.2 (BEAKER) (test code = 751) MEAN CORPUSCULAR HEMOGLOBIN CONC 33.3 GM/DL 32.2-35.5 (BEAKER) (test code = 752) RED CELL DISTRIBUTION WIDTH 12.6 % 11.7-14.4 (BEAKER) (test code = 412) PLATELET COUNT (BEAKER) (test 121 K/CU MM 150-450 L code = 756) MEAN PLATELET VOLUME (BEAKER) 9.1 fL 9.4-12.3 L (test code = 754) NUCLEATED RED BLOOD CELLS 0 /100 WBC 0-0 (BEAKER) (test code = 413) (CELLAVISION MANUAL DIFF)2020-12-29 09:24:00 Test Item Value Reference Range Interpretation Comments NEUTROPHILS - REL 82 % (CELLAVISION)(BEAKER) (test code = 2816) LYMPHOCYTES - REL 10 % (CELLAVISION)(BEAKER) (test code = 2817) MONOCYTES - REL 5 % (CELLAVISION)(BEAKER) (test code = 2818) BANDS - REL (CELLAVISION)(BEAKER) 3 % 0-10 (test code = 2826) NEUTROPHILS - ABS 10.00 K/ul 1.56-6.13 H (CELLAVISION)(BEAKER) (test code = 2830) LYMPHOCYTES - ABS 1.22 K/ul 1.18-3.74 (CELLAVISION)(BEAKER) (test code = 2831) MONOCYTES - ABS 0.61 K/uL 0.24-0.36 H (CELLAVISION)(BEAKER) (test code = 2832) BANDS - ABS (CELLAVISION)(BEAKER) 0.37 K/uL 0.00-0.80 (test code = 2840) TOTAL COUNTED (BEAKER) (test code 100 = 1351) WBC MORPHOLOGY (BEAKER) (test code Normal = 487) PLT MORPHOLOGY (BEAKER) (test code Normal = 486) ANISOCYTOSIS (BEAKER) (test code = 1+ few 961) MICROCYTES (BEAKER) (test code = 1+ few 965) ARTIFACT (CELLAVISION)(BEAKER) Present (test code = 3432) PLATELET CONCENTRATION Decreased (CELLAVISION)(BEAKER) (test code = 3438) Mixer Crane Operator ID - Margarita OverholtUser comments: Slide comments:Hemoglobin A1c 2020-12-29 07:57:00 Test Item Value Reference Range Interpretation Comments Hemoglobin A1C (test code = 4548-4) 5.3 % 4.3-6.1 Lab Interpretation (test code = Normal 98812-1) [facility] CenterHEMOGLOBIN [id number] 07:57:00 Test Item Value Reference Range Interpretation Comments HEMOGLOBIN A1C (BEAKER) (test code = 5.3 % 4.3-6.1 368) BLOOD GAS, [id number] 07:52:00 Test Item Value Reference Range Interpretation Comments PH ARTERIAL (BEAKER) (test code = 7.44 7.35-7.45 383) PCO2 ARTERIAL (BEAKER) (test code 24 mm Hg 35-45 L = 384) PO2 ARTERIAL (BEAKER) (test code 333 mm Hg 80-90 H = 385) O2 SATURATION ARTERIAL (BEAKER) 99.8 % 96.0-97.0 H (test code = 386) HCO3 ARTERIAL (BEAKER) (test code 16 mmol/L 21-29 L = 388) BASE EXCESS ARTERIAL (BEAKER) -7.7 mmol/L -2.0-3.0 L (test code = 387) PATIENT TEMPERATURE (BEAKER) 37.7 (test code = 1818) FIO2 (BEAKER) (test code = 1819) 100.0 BASIC METABOLIC [id number] 07:06:00 Test Item Value Reference Range Interpretation Comments SODIUM (BEAKER) (test 144 meq/L 136-145 code = 381) POTASSIUM (BEAKER) 3.7 meq/L 3.5-5.1 (test code = 379) CHLORIDE (BEAKER) 117 meq/L 98-107 H (test code = 382) CO2 (BEAKER) (test 14 meq/L 22-29 L code = 355) BLOOD UREA NITROGEN 13 mg/dL 7-21 (BEAKER) (test code = 354) CREATININE (BEAKER) 0.87 mg/dL 0.57-1.25 (test code = 358) GLUCOSE RANDOM 172 mg/dL 70-105 H (BEAKER) (test code = 652) CALCIUM (BEAKER) 7.4 mg/dL 8.4-10.2 L (test code = 697) EGFR (BEAKER) (test INSUFFIC IENT CLINICAL code = 1092) DATA TO CALCULA TE ESTIMATED GFR. Mixer Crane Operator ID - BEN [id number] 07:03:00 Test Item Value Reference Range Interpretation Comments MAGNESIUM (BEAKER) (test code = 2.5 mg/dL 1.6-2.6 627) Mixer Crane Operator ID - BEN [id number] 07:03:00 Test Item Value Reference Range Interpretation Comments PHOSPHORUS (BEAKER) (test code = 2.1 mg/dL 2.3-4.7 L 604) Mixer Crane Operator ID - BEN MPOCT-GLUCOSE [id number] 06:18:00 Test Item Value Reference Range Interpretation Comments POC-GLUCOSE METER 147 mg/dL 70-110 H : TESTED Alanna T [facility] 6720 (BEAKER) (test code = JOAN LONG ID, 1538) [id number]: Mixer Crane Operator/Techni marielos ID = [id number] for Al chapo [facility] BLOOD GAS, [id number] 06:11:00 Test Item Value Reference Range Interpretation Comments PH ARTERIAL (BEAKER) (test code = 7.51 7.35-7.45 H 383) PCO2 ARTERIAL (BEAKER) (test code 18 mm Hg 35-45 LL = 384) PO2 ARTERIAL (BEAKER) (test code 183 mm Hg 80-90 H = 385) O2 SATURATION ARTERIAL (BEAKER) 99.4 % 96.0-97.0 H (test code = 386) HCO3 ARTERIAL (BEAKER) (test code 14 mmol/L 21-29 L = 388) BASE EXCESS ARTERIAL (BEAKER) -7.8 mmol/L -2.0-3.0 L (test code = 387) PATIENT TEMPERATURE (BEAKER) 37.7 (test code = 1818) FIO2 (BEAKER) (test code = 1819) 30.0 RAD, CHEST, 1 VIEW, NON [id number] 05:27:00Reason for exam:- >IntubatedShould this be performed at the bedside?->Yes [facility] : 1945 Sex: FFINAL REPORT RAD, CHEST, 1 VIEW, NON DEPT INDICATION: Intubated DENYS RISON: Prior day's exam FINDINGS: Portable frontal view of the chest. IMPRESSION: Support Lines: ET tube tip is 5-6 cm superior to the carlo. NG tube descends below the diaphragm Lungs and pleura: Mild interstitial thickening within the left upper lung is present, slightly more conspicuous on current exam. Focal pneumonia in this location may be excluded. No pneumothorax.Heart and mediastinum: Stable contours.Additional findings: None. Signed: Ana Arreola [facility] Verified Date/Time: 12/29/2020 05:27:13 CT BRAIN WITHOUT IV CONTRAST - [id number] 03:09:00Unlisted Reason for Exam - Click Yes and Enter Reason Below->No [facility] : 1945 Sex: FFINAL REPORT EXAM: CT BRAIN WITHOUT IV CONTRAST - PORTABLE INDICATION: Parenchymal hemorrhage, follow-up TECHNIQUE: CT images from skull base to vertex without IV contrast. This exam was performed according to the departmental dose optimization program which includes automated exposure control, adjustment of the mA and/or kV according to the patient size, and/or use of an iterative reconstruction technique. COMPARISON: Exam from nine hours prior FINDINGS: Parenchyma:Postsurgical changes status post right pterional craniotomy for aneurysm clipping of the right MCA bifurcation aneurysm and evacuation of the hematoma centered at the right anterior temporal lobe. Moder ate postoperative pneumocephalus present overlying the right frontal convexity 1.9 cm in diameter with effacement of subjacent cerebral parenchyma. There is residual subarachnoid blood within the rightfrontoparietal and right temporal sulci. There is shift of midline structures from right to left of 0.9 cm, not significant changed. Unchanged right uncal medialization without britany downward herniation. No evidence of acute infarction. No new hemorrhage. Extra-axial Collection: As above. VentricularSystem: Small amount of intraventricular hemorrhage layering within the occipital horn similar to previous with stable size of the ventricles. No britany hydrocephalus. Osseous Structures: Post surgical changes, as above. Included Orbits: Normal Paranasal Sinuses: Predominantly clear Tympanomastoid Cavities: Clear. Other: None IMPRESSION:Post surgical changes status post right pterional craniotomyfor right MCA bifurcation aneurysmal clipping and intracranial hematoma evacuation with moderate pneumocephalus. No change in 0.9 cm leftward midline shift. No new infarction or hemorrhage. Unchanged intraventricular hemorrhage and ventricle size. Signed: Danielle Espinal [facility] Verified Date/Time: 12/29/2020 03:09:55 CT brain without IV contrast [id number] 03:09:00Interface, External Ris In - 12/29/2020 3:12 AM CDTFINAL REPORT EXAM: CT BRAIN WITHOUT IV CONTRAST - PORTABLE INDICATION: Parenchymal hemorrhage, follow-up TECHNIQUE: CT imagesfrom skull base to vertex without IV contrast. This exam was performed according to the departmentaldose optimization program which includes automated exposure control, adjustment of the mA and/or kV according to the patient size, and/or use of an iterative reconstruction technique. COMPARISON: Exam from nine hours prior FINDINGS: Parenchyma: Postsurgical changes status post right pterional craniotomy for aneurysm clipping of the right MCA bifurcation aneurysm and evacuation of the hematoma centered at the right anterior temporal lobe. Moderate postoperative pneumocephalus present overlying the right frontal convexity 1.9 cm in diameter with effacement of subjacent cerebral parenchyma. There is residual subarachnoid blood within the right frontoparietal and right temporal sulci. There is shift of midline structures from right to left of 0.9 cm, not significant changed. Unchanged right uncal medialization without britany downward herniation. No evidence of acute infarction. No new hemorrhage. Extra-axial Collection: As above. Ventricular System: Small amount of intraventricular hemorrhage layering within the occipital horn similar to previous with stable size of the ventricles. No britany hydrocephalus. Osseous Structures: Post surgical changes, as above. Included Orbits: Normal Paranasal Sinuses: Predominantly clear Tympanomastoid Cavities: Clear. Other: None IMPRESSION:Post surgical changes status post right pterional craniotomy for right MCA bifurcation aneurysmal clipping and intracranial hematoma evacuation with moderate pneumocephalus. No change in 0.9 cm leftward midline shift. No new infarction or hemorrhage. Unchanged intraventricular hemorrhage and ventricle size. Signed: Danielle Espinal MDReport Verified Date/Time: 12/29/2020 03:09:55 [facility] 2020-[facility]29 02:04:00 Test Item Value Reference Range Interpretation Comments MAGNESIUM (BEAKER) (test code = 1.7 mg/dL 1.6-2.6 627) Mixer Crane Operator ID - BEN [id number] 02:04:00 Test Item Value Reference Range Interpretation Comments PHOSPHORUS (BEAKER) (test code = 1.7 mg/dL 2.3-4.7 L 604) Mixer Crane Operator ID - BEN MRAD, ABDOMEN/KUB, 1 VIEW [id number] 00:20:00Reason for exam:->ngt placement [facility] 1945 Sex: FFINAL REPORT TECHNIQUE: Supine views of the abdomen. INDICATION: ngt placement. COMPARISON: None. FINDINGS/IMPRESSION: The nasogastric tube terminates in the distal gastric body. Sidehole is within the stomach. Bowel gas pattern is nonspecific but nonobstructive. Signed: Danielle Espinal MDReport Verified Date/Time: 12/29/2020 00:20:04 (CELLAVISION MANUAL DIFF)2020-12-28 22:48:00 Test Item Value Reference Range Interpretation Comments NEUTROPHILS - REL 89 % (CELLAVISION)(BEAKER) (test code = 2816) LYMPHOCYTES - REL 9 % (CELLAVISION)(BEAKER) (test code = 2817) MONOCYTES - REL 2 % (CELLAVISION)(BEAKER) (test code = 2818) NEUTROPHILS - ABS 11.39 K/ul 1.56-6.13 H (CELLAVISION)(BEAKER) (test code = 2830) LYMPHOCYTES - ABS 1.15 K/ul 1.18-3.74 L (CELLAVISION)(BEAKER) (test code = 2831) MONOCYTES - ABS 0.26 K/uL 0.24-0.36 (CELLAVISION)(BEAKER) (test code = 2832) TOTAL COUNTED (BEAKER) (test code 100 = 1351) RBC MORPHOLOGY (BEAKER) (test code Normal = 762) WBC MORPHOLOGY (BEAKER) (test code Normal = 487) PLT MORPHOLOGY (BEAKER) (test code Normal = 486) ARTIFACT (CELLAVISION)(BEAKER) Present (test code = 3432) PLATELET CONCENTRATION Adequate (CELLAVISION)(BEAKER) (test code = 3438) Mixer Crane Operator ID - Elizabeth Murray comments: Slide comments:COMPREHENSIVE METABOLIC [id number] 22:40:00 Test Item Value Reference Range Interpretation Comments TOTAL PROTEIN 6.8 gm/dL 6.0-8.3 (BEAKER) (test code = 770) ALBUMIN (BEAKER) 4.3 g/dL 3.5-5.0 (test code = 1145) ALKALINE PHOSPHATASE 69 U/L 40-150 (BEAKER) (test code = 346) BILIRUBIN TOTAL 0.5 mg/dL 0.2-1.2 (BEAKER) (test code = 377) SODIUM (BEAKER) (test 140 meq/L 136-145 code = 381) POTASSIUM (BEAKER) 3.4 meq/L 3.5-5.1 L (test code = 379) CHLORIDE (BEAKER) 111 meq/L 98-107 H (test code = 382) CO2 (BEAKER) (test 12 meq/L 22-29 L code = 355) BLOOD UREA NITROGEN 11 mg/dL 7-21 (BEAKER) (test code = 354) CREATININE (BEAKER) 0.93 mg/dL 0.57-1.25 (test code = 358) GLUCOSE RANDOM 231 mg/dL 70-105 H (BEAKER) (test code = 652) CALCIUM (BEAKER) 7.9 mg/dL 8.4-10.2 L (test code = 697) AST (SGOT) (BEAKER) 30 U/L 5-34 (test code = 353) ALT (SGPT) (BEAKER) 19 U/L 6-55 (test code = 347) EGFR (BEAKER) (test INSUFFIC IENT CLINICAL code = 1092) DATA TO CALCULA TE ESTIMATED GFR. Mixer Crane Operator ID - DBPT/[id number] 22:40:00 Test Item Value Reference Range Interpretation Comments PROTIME (BEAKER) (test 14.8 seconds 11.9-14.2 H code = 759) INR (BEAKER) (test 1.17 See_Comment [Automat ed code = 370) message] The sy stem which generated this result transmitted reference range : <=5.90. The reference range was not used to interpret this result as normal/abnormal . PARTIAL THROMBOPLASTIN 27.5 seconds 22.5-36.0 TIME (BEAKER) (test code = 760) RECOMMENDED COUMADIN/WARFARIN INR THERAPY RANGESSTANDARD DOSE: 2.0 - 3.0 Includes: PROPHYLAXIS forvenous thrombosis, systemic embolization; TREATMENT for venous thrombosis and/or pulmonary embolus.HIGH RISK: Target INR is 2.5-3.5 for patients with mechanical heart valves.CBC W/PLT COUNT & AUTO DIFFERENTIAL 2020-12-28 22:35:00 Test Item Value Reference Range Interpretation Comments WHITE BLOOD CELL COUNT (BEAKER) 12.8 K/ L 3.5-10.5 H (test code = 775) RED BLOOD CELL COUNT (BEAKER) 2.75 M/ L 3.93-5.22 L (test code = 761) HEMOGLOBIN (BEAKER) (test code = 8.7 GM/DL 11.2-15.7 L 410) HEMATOCRIT (BEAKER) (test code = 25.7 % 34.1-44.9 L 411) MEAN CORPUSCULAR VOLUME (BEAKER) 93.5 fL 79.4-94.8 (test code = 753) MEAN CORPUSCULAR HEMOGLOBIN 31.6 pg 25.6-32.2 (BEAKER) (test code = 751) MEAN CORPUSCULAR HEMOGLOBIN CONC 33.9 GM/DL 32.2-35.5 (BEAKER) (test code = 752) RED CELL DISTRIBUTION WIDTH 12.2 % 11.7-14.4 (BEAKER) (test code = 412) PLATELET COUNT (BEAKER) (test 159 K/CU MM 150-450 code = 756) MEAN PLATELET VOLUME (BEAKER) 8.7 fL 9.4-12.3 L (test code = 754) NUCLEATED RED BLOOD CELLS 0 /100 WBC 0-0 (BEAKER) (test code = 413) Prepare [id number] 20:43:00 Test Item Value Reference Range Interpretation Comments CROSSMATCH (test code = COMPATIBLE 2264) Unit ABO (test code = B Pos [id number]) UNIT NUMBER (test code = [id number] 934-0) Status (test code = RETURNED FROM ISSUE 9257787) Blood Bank Product (test RED BLOOD CELLS code = 2263) PRODUCT CODE (test code = K5702C44 933-2) [facility] CenterHEMOGLOBIN [id number] 16:10:00 Test Item Value Reference Range Interpretation Comments HEMOGLOBIN A1C (BEAKER) (test code = 5.6 % 4.3-6.1 368) CBC W/PLT COUNT & AUTO [id number] 14:45:00 Test Item Value Reference Range Interpretation Comments WHITE BLOOD CELL COUNT (BEAKER) 21.1 K/ L 3.5-10.5 H (test code = 775) RED BLOOD CELL COUNT (BEAKER) 4.16 M/ L 3.93-5.22 (test code = 761) HEMOGLOBIN (BEAKER) (test code = 13.6 GM/DL 11.2-15.7 410) HEMATOCRIT (BEAKER) (test code = 39.3 % 34.1-44.9 411) MEAN CORPUSCULAR VOLUME (BEAKER) 94.5 fL 79.4-94.8 (test code = 753) MEAN CORPUSCULAR HEMOGLOBIN 32.7 pg 25.6-32.2 H (BEAKER) (test code = 751) MEAN CORPUSCULAR HEMOGLOBIN CONC 34.6 GM/DL 32.2-35.5 (BEAKER) (test code = 752) RED CELL DISTRIBUTION WIDTH 12.0 % 11.7-14.4 (BEAKER) (test code = 412) PLATELET COUNT (BEAKER) (test 239 K/CU MM 150-450 code = 756) MEAN PLATELET VOLUME (BEAKER) 8.5 fL 9.4-12.3 L (test code = 754) NUCLEATED RED BLOOD CELLS 0 /100 WBC 0-0 (BEAKER) (test code = 413) (CELLAVISION MANUAL DIFF)2020-12-28 14:45:00 Test Item Value Reference Range Interpretation Comments NEUTROPHILS - REL 88 % (CELLAVISION)(BEAKER) (test code = 2816) LYMPHOCYTES - REL 10 % (CELLAVISION)(BEAKER) (test code = 2817) MONOCYTES - REL 2 % (CELLAVISION)(BEAKER) (test code = 2818) NEUTROPHILS - ABS 18.57 K/ul 1.56-6.13 H (CELLAVISION)(BEAKER) (test code = 2830) LYMPHOCYTES - ABS 2.11 K/ul 1.18-3.74 (CELLAVISION)(BEAKER) (test code = 2831) MONOCYTES - ABS 0.42 K/uL 0.24-0.36 H (CELLAVISION)(BEAKER) (test code = 2832) TOTAL COUNTED (BEAKER) (test code 100 = 1351) RBC MORPHOLOGY (BEAKER) (test code Normal = 762) WBC MORPHOLOGY (BEAKER) (test code Normal = 487) GIANT PLATELETS (BEAKER) (test Present code = 313) PLATELET CONCENTRATION Adequate (CELLAVISION)(BEAKER) (test code = 3438) Mixer Crane Operator ID - Nola Diaz comments: Slide comments:SARS-COV2/RT-PCR (HS & REF LABS)2020-12-28 14:15:00 Test Item Value Reference Range Interpretation Comments SARS-COV2/RT-PCR Negative Negative The SARS-Co V-2 target (test code = nucleic acids a re not [id number]) detected in thi s specimen. Negative result s do not preclude SARS-C oV-2 infection and s hould not be used as the ashlie e basis for patient managem ent decisions. Nega tive results must be combine d with clinical observ ations, patient history , and epidemiological information. A false negativ e result may occur if a spec imen is improperly kelly ected, transported or handled. This SARS CoV-2 test is a rapid, real-jennifer e RT-PCR test intended for th e qualitative detection of nu cleic acid from SARS-CoV-2 in a nasopharyngeal swab specimen collected from individuals suspected of CO VID-19 by their healthcar e provider. This test has been authorized by FDA under an EUA for use by authorized laboratories. This test is only authorized for the duration of the declaration that circumstances exist justifying the authorization of emergency use of in vitro diagnostic tests for detection and/or diagnosis of COVID-19 under Section 564(b)(1) of the Federal Food, Drug and Cosmetic Act, 21 U.S.C. 360bbb- 3(b)(1), unless the authorization is terminated or revoked sooner. Fact Sheet for Healthcare Providers: https://www.[employer]/Documents/Xpert%20Xpress%20SARS%20CoV-2/Fact%20Sheets/086-9330%20SARS-COV -2%20HEALTHCARE%20PROVIDERS%20FACT%20SHEET.pdf Fact Sheet for Healthcare Patients: https://www.[employer]/Documents/Xpert %20Xpress%20SARS%20CoV-2/Fact%20Sheets/571-3801%74HUHV-GYB-3%20PATIENT%20FACT%20 SHEET.pdfInsert Arterial [id number] 13:56:27PaNoah lopez 12/28/2020 2:01 PMInsert Arterial Line Date/Time: 12/28/2020 1:57 PMPerformed by: Sukumar Segoviauthorized by: Maria Mercado MD Consent: Written consent obtained.Consent given by:spousePatient understanding: patient states understanding of the procedure being performedPatient consent: the patient's understanding of the procedure matches consent givenProcedure consent: procedure consent matches procedure scheduledRelevant documents: relevant documents present and verifiedTest results: test results available and properly labeledSite marked: the operative site was markedImaging studies: imaging studies not availablePatient identity confirmed: arm bandTime out: Immediately priorto procedure a "time out" was called to verify the correct patient, procedure, equipment, support analyst and site/side marked as required.Preparation: Patient was prepped and draped in the usual sterile fashion.Indications: multiple ABGs and hemodynamic monitoringLocation: left radial Sedation:Patient sedated: no Needle gauge: 20Number of attempts: 2CH[facility] CenterPhenytoin level, [id number] 13:37:00 Test Item Value Reference Range Interpretation Comments Phenytoin (test code = <0.5 10-20 L 3968-5) NETTIE (test code = NETTIE) Mixer Crane Operator ID - DERRICK M Lab Interpretation (test Abnormal code = 28278-1) [facility] CenterPHENYTOIN LEVEL, [id number] 13:37:00 Test Item Value Reference Range Interpretation Comments PHENYTOIN (DILANTIN) (BEAKER) (test < ug/mL 10.0-20.0 L code = 605) Mixer Crane Operator ID - DERRICK MABORH, [id number] 13:27:00 Test Item Value Reference Range Interpretation Comments ABO Grouping (test code = 2588) B Rh Factor (test code = 2589) POS [facility] CenterBLOOD GAS, [id number] 12:49:00 Test Item Value Reference Range Interpretation Comments PH ARTERIAL (BEAKER) (test code = 7.59 7.35-7.45 H 383) PCO2 ARTERIAL (BEAKER) (test code 21 mm Hg 35-45 L = 384) PO2 ARTERIAL (BEAKER) (test code = 173 mm Hg 80-90 H 385) O2 SATURATION ARTERIAL (BEAKER) 99.4 % 96.0-97.0 H (test code = 386) HCO3 ARTERIAL (BEAKER) (test code 20 mmol/L 21-29 L = 388) BASE EXCESS ARTERIAL (BEAKER) 0.0 mmol/L -2.0-3.0 (test code = 387) PATIENT TEMPERATURE (BEAKER) (test 37.0 code = 1818) FIO2 (BEAKER) (test code = 1819) 30.0 CT, CTANGIO [id number] 11:32:00Ok to give contrast without Cr level.Unlisted Reason for Exam - Click Yes and Enter Reason Below->No [facility] : 1945 Sex: FFINAL REPORT CT, CTANGIO BRAINBRAIN CT WITHOUT CONTRAST INDICATION: Subarachnoid hemorrhage (SAH) suspected COMPARISON: CT head of the same date TECHNIQUE:Rapid acquisition spiral images were obtained between the skull base and the cranial vertex during intravenous contrast infusion to reconstruct axial images and angiographic 3D maximum intensity projections (MIP). 3-D volumetric reformatted images were created at a dedicated workstation. DOSE REDUCTION: Dose modulation, iterative reconstruction, and/or weight-based adjustment of the mA/kV was utilized to reduce the radiation dose to as low as reasonably achievable. 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 The second small posteriorly projecting aneurysm measuring 3 mm base-dome, with an approximate 3mm neck of the distal right cavernous ICA adjacent to the ophthalmic artery origin (axial image 38; coronal image 40). Internal carotid arteries: Petrous, cavernous and supraclinoid portions patent. Middle cerebral arteries: Right M1 segment opacifies normally. The right M2 segments are "draped" around the previously described right temporal and parenchymal hematoma. Left MCA M1-M2 branches demonstrate normal contrast enhancement.Anterior cerebral arteries: Bilateral PABLO A1-A2 branches demonstrate normal contrast enhancement.Basilar system: Normal contrast opacification of the vertebrobasilar system.Posterior cerebral arteries: Normal contrast opacification of the bilateral GELAT[employer] POWDER MIXER P1-P2 branches.Venous opacification:Major dural sinuses unremarkable for bolus timing.Additional findings: None. 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 Clinical team is aware findings at time of this dictation and neurosurgery has been consulted. The second small posteriorly projecting aneurysm measuring 3 mm base-dome, with an approximate 3mm neck of the distal right cavernous ICA adjacent to the ophthalmic artery origin. Signed: Ana Arreoladeaconess incarnate word health system Verified Date/Time: 12/28/2020 11:32:07 Reading Location: [address] Neuro Reading Room -GLUCOSE [id number] 11:29:00 Test Item Value Reference Range Interpretation Comments POC-GLUCOSE METER 163 mg/dL 70-110 H : Notified RN/MD: (NAZARIO) (test code = TESTED AT [facility] 6720 1538) [facility], [id number]: Mixer Crane Operator/Techni marielos ID = [id number] for CÉSAR HinaTIFFANY RADHASHUKRI CT, BRAIN, WITHOUT [id number] 11:16:00Unlisted Reason for Exam - Click Yes and Enter Reason Below->No [facility] : 1945 Sex: FFINAL REPORT CT, BRAIN, WITHOUT CONTRAST CLINICAL INDICATION: Cerebr al hemorrhage suspected COMPARISON: None TECHNIQUE: Noncontrast axial CT imaging of the brain and skull. DOSE REDUCTION: Dose modulation, iterative reconstruction, and/or weight-based adjustment of the mA/kV was utilized to reduce the radiation dose to as low as reasonably achievable. FINDINGS:4.6 x3.7 x 4.5 cm intraparenchymal hematoma within the right temporal lobe with adjacent subarachnoid hemorrhage. Layering subdural hemorrhage along the right posterior frontal, temporal and occipital convexity measures up to 8 mm. There is associated mass effect with 9 mm leftward midline shift, leftward subfalcine and early uncal herniation. No hydrocephalus. Effacement of the right lateral ventricle. Trace blood products within the occipital horn of the left lateral ventricle. Orbits are within normal limits. No obstructive paranasal sinus disease. IMPRESSION: 4.6 x 3.7 x 4.5 cm intraparenchymal hematoma within the right temporal lobe with adjacent subarachnoid hemorrhage. Layering subdural hemorrhage along the right cerebral convexity measures up to 8 mm. There is associated mass effect with 9 mm leftward midline shift, leftward subfalcine and early uncal herniation. Trace intraventricular blood products within the occipital horn of the left lateral ventricle. No hydrocephalus. If there is per sistent clinical concern for intracranial pathology, MR examination is recommended for further characterization. Signed: Ana Arreola MDReport Verified Date/Time: 12/28/2020 11:16:20 Reading Location: [facility] C013V Neuro Reading Room Electronically signed by: ANA ARREOLA MD on 021 11:16 AMBASIC METABOLIC [id number] 10:41:00 Test Item Value Reference Range Interpretation Comments SODIUM (BEAKER) (test 137 meq/L 136-145 code = 381) POTASSIUM (BEAKER) 3.5 meq/L 3.5-5.1 (test code = 379) CHLORIDE (BEAKER) 101 meq/L 98-107 (test code = 382) CO2 (BEAKER) (test 18 meq/L 22-29 L code = 355) BLOOD UREA NITROGEN 12 mg/dL 7-21 (BEAKER) (test code = 354) CREATININE (BEAKER) 0.95 mg/dL 0.57-1.25 (test code = 358) GLUCOSE RANDOM 181 mg/dL 70-105 H (BEAKER) (test code = 652) CALCIUM (BEAKER) 8.6 mg/dL 8.4-10.2 (test code = 697) EGFR (BEAKER) (test INSUFFIC IENT CLINICAL code = 1092) DATA TO CALCULA TE ESTIMATED GFR. Mixer Crane Operator ID - BSHEPATIC FUNCTION [id number] 10:37:00 Test Item Value Reference Range Interpretation Comments TOTAL PROTEIN (BEAKER) (test code = 7.9 gm/dL 6.0-8.3 770) ALBUMIN (BEAKER) (test code = 1145) 4.1 g/dL 3.5-5.0 BILIRUBIN TOTAL (BEAKER) (test code 0.8 mg/dL 0.2-1.2 = 377) BILIRUBIN DIRECT (BEAKER) (test 0.3 mg/dL 0.1-0.5 code = 706) ALKALINE PHOSPHATASE (BEAKER) (test 102 U/L 40-150 code = 346) AST (SGOT) (BEAKER) (test code = 33 U/L 5-34 353) ALT (SGPT) (BEAKER) (test code = 29 U/L 6-55 347) Mixer Crane Operator ID - BSProthrombin time/[id number] 10:25:00 Test Item Value Reference Interpretation Comments Range Protime (test code = 13.0 See_Comment [Autom ated 0282-2) message] The system which generated this result transmitted reference range : 11.9 - 14.2 seconds. The reference range was not used to interpret this result as normal/abnormal . INR (test code = 1.00 See_Comment [Automated 5971-6) message] The system which generated this result transmitted reference range : <=5.90. The reference range was not used to interpret this result as normal/abnormal . NETTIE (test code = RECOMMENDED NETTIE) COUMADIN/WARFARIN INR THERAPY RANGESSTANDARD DOSE: 2.0 - 3.0 Includes: PROPHYLAXIS for venous thrombosis, systemic embolization; TREATMENT for venous thrombosis and/or pulmonary embolus.HIGH RISK: Target INR is 2.5-3.5 for patients with mechanical heart valves. Lab Interpretation Normal (test code = 02075-7) [facility] [id number] 10:25:00 Test Item Value Reference Range Interpretation Comments PTT (test code = 77576-2) 22.9 See_Comment [ Automated message] The system [employer] generated this result transmitted ref erence range: 22.5 - 3 6.0 seconds. The re ference range was not u sed to interpret this result as normal/abnor mal. Lab Interpretation (test Normal code = 88235-0) [facility] CenterPROTHROMBIN TIME/[id number] 10:25:00 Test Item Value Reference Range Interpretation Comments PROTIME (BEAKER) 13.0 seconds 11.9-14.2 (test code = 759) INR (BEAKER) (test 1.00 See_Comment [Automat ed message] code = 370) The system [employer] generated this result transmitted ref erence range: <=5.90. The reference range was not used to int erpret this result as normal/abnormal . RECOMMENDED COUMADIN/WARFARIN INR THERAPY RANGESSTANDARD DOSE: 2.0 - 3.0 Includes: PROPHYLAXIS forvenous thrombosis, systemic embolization; TREATMENT for venous thrombosis and/or pulmonary embolus.HIGH RISK: Target INR is 2.5-3.5 for patients with mechanical heart valves.[id number] 10:25:00 Test Item Value Reference Range Interpretation Comments PARTIAL THROMBOPLASTIN TIME 22.9 seconds 22.5-36.0 (BEAKER) (test code = 760) RAD, CHEST, 1 VIEW, NON [id number] 09:47:00Reason for exam:- >IntubatedShould this be performed at the bedside?->Yes [facility] : 1945 Sex: FFINAL REPORT RAD, CHEST, 1 VIEW, NON DEPT INDICATION: Intubated DENYS RISON: Prior day's exam FINDINGS: Portable frontal view of the chest. IMPRESSION: Support Lines: Endotracheal tube projects over the proximal right main stem. The patient's nurse reports that the finding is known to the primary team and has been corrected. Lungs and pleura: Basilar subsegmental atelectasis at the left base. No pneumothorax.Heart and mediastinum: Unremarkable contours.Additional findings: None. Signed: JR Mcmanus Robert MDReport Verified Date/Time: 12/28/2020 09:47:24 Reading Location: [facility] Radiology Reading Room NEUROPHYSIOLOGY REPORT - [id number] 00:00:00Ordered by an unspecified provider.[facility] - SCAN 2020-12-28 00:00:00Ordered by an unspecified provider.[facility]NE[facility]OLOG[facility] REPORT - [id number] 00:00:00Ordered by an unspecified provider.[facility] - [id number] 00:00:00Ordered by an unspecified provider.[facility] NEUROPHYSIOLOGY REPORT - [id number] 00:00:00Ordered by an unspecified provider.[facility]NE[facility]OLOG[facility] REPORT - [id number] 00:00:00Ordered by an unspecified provider.[facility] NEUROPHYSIOLOGY REPORT - [id number] 00:00:00Ordered by an unspecified provider.[facility]NE[facility] RE[facility] - [id number] 00:00:00Ordered by an unspecified provider.[facility] NEUROPHYSIOLOGY REPORT - [id number] 00:00:00Ordered by an unspecified provider.[facility]NE[facility]OLOG[facility] REPORT - [id number] 00:00:00Ordered by an unspecified provider.[facility] AUI-[id number] 00:00:00Ordered by an unspecified provider.[facility]
[2021-07-07 18:57] LABS: Absolute Lymphocytes (CBC) 2.3 K/uL (0.7-4.9); Hematocrit 40.6 % (36.0-45.0); Lymphocytes % 16.7 % (15.3-44.8); MPV 6.4 fL (7.6-11.3); RBC Red Blood Cell Count 4.56 M/uL (3.86-4.86)
[2021-07-07 19:09] LABS: BUN Blood Urea Nitrogen 20 mg/dL (7-18); Bicarbonate 27 mmol/L (21-32); Glucose Level 116 mg/dL (74-106); Potassium 3.7 mmol/L (3.5-5.1); Sodium Level 133 mmol/L (136-145)
--- NOTE | 2021-07-07 19:50 | RAD REPORT ---
EXAM DESCRIPTION: CT - Head C Spine Cap W Con - 07/07/2021 7:19 pm CLINICAL HISTORY: May have fallen out of bed hitting head COMPARISON: Ct Stroke Brain Wo Cont dated 12/28/2020 TECHNIQUE: Axial [address] head images were obtained. Axial [address] cervical spine images were obtaine d with sagittal and coronal reconstruction images reviewed. During dynamic enhancement of 100mL non-i onic contrast, axial 5 mm images of the chest, abdomen and pelvis were obtained. Biphasic technique p erformed of the abdomen and pelvis. All CT scans are performed using dose optimization technique as appropriate and may include automated exposure control or mA/KV adjustment according to patient size. FINDINGS: No intracranial hemorrhage is present. No midline shift or mass effect identified. Large a crist[place] of encephalomalacia is present involving much of the right cerebral hemisphere. Lateral ventricle has enlarged significantly in proportion to the amount of brain parenchymal volume loss. No cortical edema or sulcal effacement seen. Arterial and physiologic calcifications are present. Patient appear s to have aneurysm or other vascular clips in the sylvian fissure on the right. Right temporal cranio anali defect noted. Mastoid air cells and paranasal sinuses are clear of acute finding. No skull fract ure. CT cervical spine imaging shows normal height. No subluxation abnormality. Asymmetry is created by he ad rotation and tilt. C5-6 disc space narrowing seen with endplate spurring. Facet joint degenerative change and uncovertebral joint hypertrophy present causing foraminal stenosis on the right at C4-5 a nd bilateral at C5-6. No paraspinal mass or hematoma seen. Central canal detail is inherently limited . Bold CT chest shows no pneumothorax, pulmonary contusion or pleural fluid collection. No mediastinal hemat harpreet and the aorta and pulmonary arteries are unremarkable. No chest will mass or abnormal axillary fi nding. No displaced rib fracture or other significant bony finding. CT abdomen and pelvis show no injury to solid abdominal viscera. Gallbladder and biliary tree are unr emarkable. No bowel injury or significant finding. Tube is in place. No free air, free fluid or abnor mal stranding. No urinary bladder abnormality. No significant bony finding. Lumbar scoliotic curvature is present. Significant asymmetry created due to rotation affects. No significant vascular finding. IMPRESSION: Significant right cerebral encephalomalacia related to the December 2020 intracranial hemo rrhage. No acute intracranial findings identifiable. Degenerative change present without acute finding seen. No acute or emergent CT Chest finding. No acute or emergent CT Abdomen and Pelvis finding.
[2021-07-07 19:55] LABS: Urine Blood 1+ (Negative); Urine Glucose Negative (Negative); Urine Protein Trace (Negative); Urine Specific Gravity 1.015 (1.005-1.030)
--- NOTE | 2021-07-07 20:13 | EDPHYS ---
Physician Documentation [facility] Name: Georgina Chacko Age: 75 yrs Sex: Female : 1945 Arrival Date: 07/07/2021 Time: 17:58 Bed 23 Private MD: ED Physician Shira Segovia HPI: 07/07 18:49 This 75 yrs old Unknown Female presents to ER via EMS with complaints of Fall Injury. kdr 18:49 Details of fall: The patient fell from a height, off furniture, approximately 2 feet. kdr Onset: The symptoms/episode began/occurred just prior to arrival. Associated injuries: The patient sustained Unknown. The patient was found hanging half out of bed with her head on the floor. She had last been seen just prior to that about 10 minutes. It is unknown if she hit her head sufficient to be knocked out or not. The patient was started on antibiotics on June 26 for possible cellulitis around her G-tube site. She was given Keflex at that time and took it for about 7 days. Since then she has continued to have intermittent fevers according to the family. 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 Historical: - Allergies: 18:10 No Known Allergies; iw - Home Meds: 18:04 amlodipine oral twice a day [Active]; Metoprolol Tartrate Oral 2 times per day iw [Active]; Keppra 100 mg/mL Oral soln 5 mL 2 times per day [Active]; Vitamin B-12 Oral daily [Active]; Tylenol oral as needed [Active]; - PMHx: 18:04 HTN; CVA; iw - Immunization history:: Client reports receiving the 2nd dose of the Covid vaccine, Pneumococcal vaccine is not up to date, patient has never been vaccinated, Flu vaccine is up to date. - Social history:: Patient/guardian denies using alcohol, street drugs, IV drugs, tobacco products, Smoking status: Patient/guardian denies using. ROS: 18:49 Constitutional: Unobtainable except from the family as the patient has had a prior kdr stroke and is nonverbal Eyes: Negative for injury, pain, redness, and discharge, Neck: Negative for injury, pain, and swelling. 18:49 Respiratory: Positive for cough, with no reported sputum, Slight. 18:49 Neuro: Positive for Patient does not move the left side due to a prior stroke. She is constantly moving the right side. Exam: 18:49 Constitutional: This is a well developed, well nourished patient who is awake, alert, kdr and in no acute distress. Head/Face: Normocephalic, atraumatic. Eyes: Pupils equal round and reactive to light, extra-ocular motions intact. Lids and lashes normal. Conjunctiva and sclera are non-icteric and not injected. Cornea within normal limits. Periorbital areas with no swelling, redness, or edema. Neck: Trachea midline, no thyromegaly or masses palpated, and no cervical lymphadenopathy. Supple, full range of motion without nuchal rigidity, or vertebral point tenderness. No Meningismus. Chest/axilla: Normal chest wall appearance and motion. Nontender with no deformity. No lesions are appreciated. Cardiovascular: Regular rate and rhythm with a normal S1 and S2. No gallops, murmurs, or rubs. Normal PMI, no JVD. No pulse deficits. Respiratory: Lungs have equal breath sounds bilaterally, clear to auscultation and percussion. No rales, rhonchi or wheezes noted. No increased work of breathing, no retractions or nasal flaring. Back: No spinal tenderness. No costovertebral tenderness. Full range of motion. Skin: Warm, dry with normal turgor. Normal color with no rashes, no lesions, and no evidence of cellulitis. 18:49 Abdomen/GI: Patient has a G-tube in place. Vital Signs: 18:09 BP 143 / 72; Pulse 103; Resp 18 S; Temp 98.2(O); Pulse Ox 99% on R/A; iw 18:20 BP 138 / 80; Pulse 102; Resp 20; Temp 99.0; Pulse Ox 99% on R/A; Weight 64.86 kg; lr4 Height 5 ft. 2 in. (157.48 cm); Pain 6/10; 20:11 BP 120 / 76; Pulse 91; Resp 20; Pulse Ox 97% ; lr4 20:28 BP 130 / 83; Pulse 94; Resp 20; Pulse Ox 98% ; lr4 18:20 Body Mass Index 26.15 (64.86 kg, 157.48 cm) lr4 MDM: 19:40 Patient medically screened. sp3 20:11 Data reviewed: vital signs, nurses notes. ED course: All data returned. Patient sp3 endorsed to me by Dr. Francis. CT scan of the head, C-spine, chest, abdomen, pelvis all demonstrate no acute abnormality. Laboratory values reviewed as well which demonstrate no significant abnormality. Urine dipstick is negative for nitrite and leukocyte esterase. Patient is resting comfortably with normal vital signs with heart rate in the 95-100 range. Will discharge patient home at this time with follow-up with home health/primary care.. 07/07 18:17 Order name: Basic Metabolic Panel; Complete Time: 19:40 kdr 07/07 18:17 Order name: CBC with Diff; Complete Time: 19:40 [facility] 07/07 18:17 Order name: CT Traumagram (Head C Spine CAP W Con); Complete Time: 20:09 [facility] 07/07 18:17 Order name: Labs collected and sent; Complete Time: 18:39 [facility] 07/07 18:49 Order name: Urine Culture [facility] 07/07 19:54 Order name: Urine Dipstick-Ancillary; Complete Time: 20:09 [facility] 07/07 18:49 Order name: Urine Dipstick-Ancillary (obtain specimen); Complete Time: 19:56 kdr Administered Medications: No medications were administered Disposition Summary: 07/07/21 20:13 Discharge Ordered Location: Home sp3 Condition: Stable sp3 Diagnosis - Fall on same level, unspecified sp3 - History of falling sp3 Followup: sp3 - With: Private Physician - When: Upon discharge from the Emergency Department - Reason: Recheck today's complaints Discharge Instructions: - Discharge Summary Sheet sp3 - Fall Prevention in the Home, Adult sp3 Forms: - Medication Reconciliation Form sp3 - Thank You Letter sp3 - Antibiotic Education sp3 - Prescription Opioid Use sp3 Signatures: Dispatcher [employer] EDTX Junior Francis MD MD kdr Kiana Cast RN RN iw Shira Segovia MD MD sp3 Tanja Soto RN RN lr4
--- NOTE | 2021-07-07 20:13 | ER ---
Nurse's Notes [facility] Name: Georgina Chacko Age: 75 yrs Sex: Female : 1945 Arrival Date: 07/07/2021 Time: 17:58 Bed 23 Private MD: Diagnosis: Fall on same level, unspecified;History of falling Presentation: 07/07 18:01 Chief complaint: EMS states: pt has hx of CVA with left sided deficits, bed bound, iw lives at home, was found by her family , appeared to have rolled out of bed on right side, was hanging fpc off the bed, family was unsure if pt hit her head , wants her to get checked out just in case, pt is acting like her normal self , pt is normally nonverbal, family now at bedside. Coronavirus screen: At this time, the client does not indicate any symptoms associated with coronavirus-19. Ebola Screen: Patient negative for fever greater than or equal to 101.5 degrees Fahrenheit, and additional compatible Ebola Virus Disease symptoms Patient denies exposure to infectious person. Patient denies travel to an Ebola-affected area in the 21 days before illness onset. No symptoms or risks identified at this time. Initial Sepsis Screen: Does the patient meet any 2 criteria? No. Patient's initial sepsis screen is negative. Does the patient have a suspected source of infection? No. Patient's initial sepsis screen is negative. Risk Assessment: Do you want to hurt yourself or someone else? Patient reports no desire to harm self or others. Onset of symptoms was July 07, 2021. 18:01 Method Of Arrival: EMS: [facility] iw 18:01 Acuity: INESSA 3 iw Triage Assessment: 18:16 General: Appears in no apparent distress. well developed, Behavior is calm, pleasantly lr4 confused. Pain: Noted to be restless. Neuro: Level of Consciousness is awake, alert, confused, Oriented to person, Good Humor Vendor are no movement on L, due to previous stroke. Paralysis in left from neck down, Gait is unable to ambulate, bedbound. Speech is normal, Reaction to noxious stimuli is Reports Denies Seizure activity. Cardiovascular: No deficits noted. Respiratory: No deficits noted. Musculoskeletal: Parent/caregiver report the patient having weakness in left hand, left foot, left arm and left leg. Historical: - Allergies: 18:10 No Known Allergies; iw - Home Meds: 18:04 amlodipine oral twice a day [Active]; Metoprolol Tartrate Oral 2 times per day iw [Active]; Keppra 100 mg/mL Oral soln 5 mL 2 times per day [Active]; Vitamin B-12 Oral daily [Active]; Tylenol oral as needed [Active]; - PMHx: 18:04 HTN; CVA; iw - Immunization history:: Client reports receiving the 2nd dose of the Covid vaccine, Pneumococcal vaccine is not up to date, patient has never been vaccinated, Flu vaccine is up to date. - Social history:: Patient/guardian denies using alcohol, street drugs, IV drugs, tobacco products, Smoking status: Patient/guardian denies using. Screenin:12 Abuse screen: Denies threats or abuse. Nutritional screening: No deficits noted. lr4 Tuberculosis screening: No symptoms or risk factors identified. Fall Risk Fall in past 12 months (25 points). Secondary diagnosis (15 points) IV access (20 points). Ambulatory Aid- None/Bed Rest/Nurse Assist (0 pts). Gait- Normal/Bed Rest/Wheelchair (0 pts) Mental Status- Overestimates/Forgets Limitations (15 pts.). Total Ken Fall Scale indicates High Risk Score (45 or more points). Fall prevention measures have been instituted. Side Rails Up X 2 Placed Close to Nursing Station Frequent Obs/Assessments Occuring Family Present and informed to notify staff if the need to leave the bedside As available patient and family educated on Fall Prevention Program and Strategies. Assessment: 20:26 Reassessment: No changes from previously documented assessment. General: Pt IVs d/c'd. lr4 Pt is disharged per MD, awaiting ambulance ride home, [facility] to arrive at approx 2044. Pt in nad, vss. 20:40 General: pt transported home via [facility], unit 2, with all personal effects. lr4 Vital Signs: 18:09 BP 143 / 72; Pulse 103; Resp 18 S; Temp 98.2(O); Pulse Ox 99% on R/A; iw 18:20 BP 138 / 80; Pulse 102; Resp 20; Temp 99.0; Pulse Ox 99% on R/A; Weight 64.86 kg; lr4 Height 5 ft. 2 in. (157.48 cm); Pain 6/10; 20:11 BP 120 / 76; Pulse 91; Resp 20; Pulse Ox 97% ; lr4 20:28 BP 130 / 83; Pulse 94; Resp 20; Pulse Ox 98% ; lr4 18:20 Body Mass Index 26.15 (64.86 kg, 157.48 cm) lr4 ED Course: 17:58 Patient arrived in ED. ld1 18:04 Triage completed. iw 18:10 Arm band placed on. iw 18:16 Junior Francis MD is Attending Physician. kdr 18:39 Basic Metabolic Panel Sent. lr4 18:39 CBC with Diff Sent. lr4 18:39 Inserted saline lock: 22 gauge in right hand, using aseptic technique. lr4 18:59 Inserted saline lock: 22 gauge in right antecubital area, using aseptic technique. lr4 19:19 CT Traumagram (Head C Spine CAP W Con) In Process Unspecified. EDMS 19:26 Attending Physician role handed off by Junior Francis MD sp3 19:26 Shira Segovia MD is Attending Physician. sp3 19:29 Straight cath inserted, using sterile technique, 16 Fr. Returned clear yellow urine. lr4 Patient tolerated. 19:56 Urine Culture Sent. lr4 20:12 No provider procedures requiring assistance completed. lr4 20:14 IV discontinued, intact, No redness/swelling at site. Pressure dressing applied, IV lr4 d/c'd x 2. 20:25 Patient has correct armband on for positive identification. Bed in low position. Call lr4 light in reach. Side rails up X2. Adult w/ patient. quality assurance monitor body on. Pulse ox on. Administered Medications: No medications were administered Outcome: 20:13 Discharge ordered by . sp3 20:13 Condition: stable lr4 20:14 Discharged to home lr4 20:14 Discharge instructions given to family. 20:41 Patient left the ED. lr4 Signatures: Dispatcher [employer] EDMS Junior Francis MD MD kdr Williams, Irene, RN RN iw Bee Barry RN RN ld1 Shira Segovia MD MD sp3 Tanja Soto RN RN lr4
[2021-07-07 21:40] VITALS: TEMP 99
[2021-07-07 21:43] VITALS: BP 130/83; O2SAT 98
== END 2021-07-07 20:41 | disposition home or self-care (01) ==
LOC: ER 17:54
DX: Z04.3 Encounter for examination and observation following other accident (principal); Z91.81 History of falling; W18.30XA Fall on same level, unspecified, initial encounter
CPT/HCPCS: 87088; 85025; 87086; 80048; 36415; 82565; 81003; 70450; 72125; 71260; 74177; 51702; 99284; Q9967

== ENCOUNTER 2021-12-31 08:40 | Emergency (ER) | payer OTHER ==
--- OUTSIDE RECORDS SUMMARY | 2021-12-31 08:53 | XMS REPORT | Continuity of Care Document ---
:1945 Author Organization [facility] t Address [address] [place] [address] Care Team Providers Name Role Phone Pcp , No Primary Care Physician Unavailable HERACLIO DAVILA Attending Clinician Unavailable Perry RODRIGUEZ, Maury In Attending Clinician Lidia RODRIGUEZ, Miri Cardenas Attending Clinician Araceli RODRIGUEZ, Fei Serna Attending Clinician Henny García CRNA Attending Clinician [phone] Staci RODRIGUEZ, Nathan Jarvis Attending Clinician Virtual, Surgeon Attending Clinician Unavailable Carleen RODRIGUEZ, No Attending Clinician Unavailable Damon RODRIGUEZ, Stefan Garza Attending Clinician Ava Whitt MD Attending Clinician HERACLIO DAVILA Admitting Clinician Unavailable Payers Payer Name Policy Type Policy Number Effective Date Expiration Date S sherita [facility] H[facility] OS [id number] 2020 00:00:00 FORMERLY [facility] [id number] 2021 (MEDICARE 00:00:00 REPLACEMENT HMO) Problems Condition Condition Condition Status Onset Resolution Last Treating Co mments Source Name Details Category Date Date Treatment Clinician Date Respirator Respirator Disease Active [facility]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 12-29 [facility] Center Hypertensi Hypertensi Disease [facility] Acute on Acute on Disease [facility] anemia anemia 00:00: Medical [place] Midline Midline Disease Active [facility] shift of shift of 12-29kes brain due brain due 00:00: Medi samina to to 00 Center hematoma hematoma Unresponsi Unresponsi Disease Active [facility] ve ve [facility] 00:[facility]: Medical [facility] [place] SAH SAH Disease Active [facility] (subarachn (subarachn 12-29 Y[facility] oid oid 00:00: Medical hemorrhage hemorrhage 00 Ce nter ) ) Acute Acute Disease Active [facility] respirator respirator 12-29 Y[facility] kes y y 00:00: Medical alkalosis alkalosis 00 Cent er Hypovolemi Hypovolemi Disease Active [facility] shock c shock 12-29 [facility] 00:[facility]: [facility] 00 [place] Intracrani Intracrani Disease Active [facility] al 12[facility]28 [facility] hemorrhage hemorrhage 00:00: Me dical 00 Center Allergies, Adverse Reactions, Alerts Allergy Allergy Status Severity Reaction(s) Onset Inactive Treating Comm ents Source Name Type Date Date Clinician NO KNOWN [facility] Social History Social Habit Start Date Stop Date Quantity Comments Source History SDGA [facility] Alcohol Std Drinks Medica l Center History SDOH [facility] Alcohol Binge Medical Zainab ter Sex Assigned At [facility] Tobacco use and 2021-01-14 2021-01-[address] [facility] Yin kes exposure 00:00:00 00:00:00 [facility] Alcohol intake 2021-01-14 2021-01-[address] Fl[facility] es 00:00:00 00:00:00 non-drinker Medical Cente r (finding) History SDOH 2020-12-28 2020-12-[address] [facility] Alcohol Frequency 00:00:00 00:00:00 Medical Center Smoking Status Start Date Stop Date Source Never smoker [facility] Medications Ordered Filled Start Stop Current Ordering Indication Dosage Frequency Signature Comments Components Source Medication Medication Date Date Medication? Clinician (SIG) Name Name cyanocobala Yes 100ug QD Take [address] [facility] [address] min, - tablet [facility] vitamin 00:00: (100 mcg Medica l B-12, 100 00 total) by Cente r MCG tablet mouth daily. thiamine Yes 100mg QD Take [address] 100 MG - tablet [facility] tablet 00:00: (100 mg Medical 00 total) by Center mouth daily. levoFLOXaci No 750mg QD Take [address] n 01-19 tablet [facility] (LEVAQUIN) 00:00: 00:00 (750 mg Med ical 750 MG 00 :00 total) by Center tablet mouth daily for 5 days. amLODIPine No hypertensio 5mg QD Take [address] (NORVASC) 5 01-18 n by mouth Flaco es MG tablet 09:26: 00:00 daily. Medic al 23 :00 Center folic acid Yes 1mg QD Take 1 [facility] (FOLVITE) 1 - tablet (1 Flaco es MG tablet 00:00: mg total) Med ical 00 by mouth Center daily. levETIRAcet Yes 500mg Q.5D 5 mLs ([address] (KEPPRA) 8-27 mg total) Flaco es 500 mg/5 mL 00:00: by Feed Med ical (5 mL) Soln 00 Tube route Ce nter oral 2 (two) solution times daily. niMODipine Yes 60mg Take 2 [facility] (NIMOTOP) - capsules [facility] 30 MG 00:00: (60 mg Medical capsule 00 total) by Center mouth every 4 (four) hours. modafiniL 2020- No Take 1 [facility] (PROVIGIL) - 09-10 tablet [facility] 200 MG 00:00: 23:59 (200 mg Medical tablet 00 :00 total) by Center mouth daily for 7 days, THEN 0.5 tablets (100 mg total) daily for 7 days. Max Daily Amount: 200 mg. folic acid No 1mg QD Take [address] (FOLVITE) 1 01-15 tablet (1 Yin kes MG tablet 00:00: 00:00 mg total) Me dical 00 :00 by mouth Center daily. levETIRAcet 2020- No 500mg Q.5D 5 mLs ([address] am (KEPPRA) 01-15 mg total) Yin kes 500 mg/5 mL 00:00: 00:00 by Feed Me dical (5 mL) Soln 00 :00 Tube route Ce nter oral 2 (two) solution times daily for 30 days. modafiniL No 200mg QD Take [address] (PROVIGIL) 01-15 tablet [facility] 200 MG 00:00: 00:00 (200 mg Medical tablet 00 :00 total) by Center mouth daily for 30 days. Max Daily Amount: 200 mg niMODipine No 60mg Take [address] (NIMOTOP) 01-15 capsules [facility] 30 MG 00:00: 00:00 (60 mg Medical [...] kg Heart rate 2021-01-19 08:29:00 98 /min [facility] Respiratory rate 2021-01-19 08:29:00 18 /min [facility] Oxygen saturation in 2021-01-19 08:29:00 96 /min [facility] Arterial blood by Medical Ce ntlloyd Pulse oximetry Systolic blood 2021-01-19 07:31:00 108 mm[Hg] [facility] Diastolic blood 2021-01-19 07:31:00 70 mm[Hg] [facility] Body temperature 2021-01-19 07:31:00 35.72 Niecy [facility] Body weight 2021-01-18 04:35:00 66.225 kg [facility] BMI 2021-01-18 04:35:00 25.06 kg/m2 [facility] Body height 2021-01-01 11:27:00 162.6 cm [facility] Procedures Procedure Date / Time Performing Clinician Source Performed POCT-GLUCOSE METER 2021-01-19 06:06:[address] [facility] POCT-GLUCOSE METER 2021-01-19 00:08:[address] [facility] POCT-GLUCOSE METER 2021-01-18 18:00:[address] [facility] POCT-GLUCOSE METER 2021-01-18 13:03:[address] [facility] POCT-GLUCOSE METER 2021-01-18 12:18:[address] [facility] SARS-COV2/RT-PCR ([facility] & 2021-01-18 10:03:00 Maury Amador In [facility] REF [facility]) [facility] POCT-GLUCOSE METER 2021-01-18 06:22:[address] [facility] CBC W/PLT COUNT & AUTO 2021-01-18 06:10:00 Coreen Marsh [facility] BASIC METABOLIC PANEL (7) 2021-01-18 06:10:00 Maximo[facility] POCT-GLUCOSE METER 2021-01-18 00:37:00 Tracee-Pankaj, Sung In [facility] POCT-GLUCOSE METER 2021-01-17 17:27:00 Tracee-Pankaj, Sung In [facility] EEG AWAKE AND DROWSY 2021-01-17 15:12:00 [facility] URINE CULTURE 2021-01-17 14:34:00 Adriano Gonzalez [facility] URINALYSIS W/ REFLEX URINE 2021-01-17 14:34:[address] [facility] POCT-GLUCOSE METER 2021-01-17 12:25:00 Tracee-Pankaj, Sung In [facility] XR CHEST 1 VIEW PORTABLE / 2021-01-17 09:50:[address] [facility] BASIC METABOLIC PANEL (7) 2021-01-17 05:36:00 Miri Murillo [facility] CBC W/PLT COUNT & AUTO 2021-01-17 05:36:00 Miri Murillo [facility] MAGNESIUM 2021-01-17 05:36:00 Miri Murillo [facility] PHOSPHORUS 2021-01-17 05:36:00 Miri Murillo [facility] (CELLAVISION MANUAL DIFF) 2021-01-17 05:36:00 Miri Murillo [facility] POCT-GLUCOSE METER 2021-01-17 05:25:00 Tracee-Pankaj, Sung In [facility] POCT-GLUCOSE METER 2021-01-17 00:20:00 Tracee-Pankaj, Sung In [facility] POCT-GLUCOSE METER 2021-01-16 18:22:00 Tracee-Pankaj, Sung In [facility] SARS-COV2/RT-PCR ([facility] & 2021-01-16 17:47:00 Miri Murillo I [facility] REF LABS) [facility] CTA BRAIN 2021-01-16 17:42:00 Deanne Gonzalez [facility] POCT-GLUCOSE METER 2021-01-16 11:55:[address] [facility] POCT-GLUCOSE METER 2021-01-16 06:50:00 Kameron, [facility] BASIC METABOLIC PANEL (7) 2021-01-16 04:06:00 Miri Murillo [facility] CBC W/PLT COUNT & AUTO 2021-01-16 04:06:00 Miri Murillo [facility] MAGNESIUM 2021-01-16 04:06:00 Miri Murillo [facility] PHOSPHORUS 2021-01-16 04:06:00 Miri Muirllo [facility] POCT-GLUCOSE METER 2021-01-16 00:12:00 Kameron, [facility] POCT-GLUCOSE METER 2021-01-15 17:47:00 Kameron, [facility] POCT-GLUCOSE METER 2021-01-15 12:12:00 Kameron, [facility] POCT-GLUCOSE METER 2021-01-15 06:48:00 Kameron, [facility] BASIC METABOLIC PANEL (7) 2021-01-15 05:43:00 Miri Murillo [facility] CBC W/PLT COUNT & AUTO 2021-01-15 05:43:00 Miri Murillo [facility] MAGNESIUM 2021-01-15 05:43:00 Miri Murillo [facility] PHOSPHORUS 2021-01-15 05:43:00 Miri Murillo [facility] POCT-GLUCOSE METER 2021-01-15 00:32:00 Kameron, [facility] POCT-GLUCOSE METER 2021-01-14 18:26:00 Kameron, [facility] SODIUM 2021-01-14 15:39:00 Miri Murillo [facility] POCT-GLUCOSE METER 2021-01-14 11:34:00 Kameron, [facility] INSERTION,GASTROSTOMY 2021-01-14 07:52:00 Miri Murillo [facility] TUBE-LAPAROSCOPIC [facility] POCT-GLUCOSE METER 2021-01-14 05:44:00 Kameron, [facility] BASIC METABOLIC PANEL (7) 2021-01-14 04:27:00 Miri Murillo [facility] CBC W/PLT COUNT & AUTO 2021-01-14 04:27:00 Barry Funes [facility] MAGNESIUM 2021-01-14 04:27:00 Miri Murillo [facility] PHOSPHORUS 2021-01-14 04:27:00 Lidia Miri F. [facility] POCT-GLUCOSE METER 2021-01-13 23:50:00 Kameron, [facility] POCT-GLUCOSE METER 2021-01-13 16:39:00 Kameron, [facility] SODIUM 2021-01-13 15:02:00 Lidia Miri Betty [facility] TYPE AND SCREEN, AUTOMATED 2021-01-13 15:02:00 Kristi Gonzalez [facility] POCT-GLUCOSE METER 2021-01-13 12:09:00 Kameron, [facility] POCT-GLUCOSE METER 2021-01-13 05:18:00 Kameron, [facility] CBC W/PLT COUNT & AUTO 2021-01-13 04:17:00 Barry Funes [facility] BASIC METABOLIC PANEL (7) 2021-01-13 04:16:00 Miri Murillo [facility] MAGNESIUM 2021-01-13 04:16:00 Miri Murillo [facility] PHOSPHORUS 2021-01-13 04:16:00 Miri Murillo [facility] POCT-GLUCOSE METER 2021-01-12 23:43:00 Kameron, [facility] POCT-GLUCOSE METER 2021-01-12 17:14:00 Kameron, [facility] VANCOMYCIN LEVEL, TROUGH 2021-01-12 13:37:00 Petrona Jordan [facility] SODIUM 2021-01-12 13:37:00 Miri Murillo [facility] POCT-GLUCOSE METER 2021-01-12 11:59:00 Kameron, [facility] POCT-GLUCOSE METER 2021-01-12 07:52:00 Kameron, [facility] POCT-GLUCOSE METER 2021-01-12 05:56:00 Kameron, [facility] BASIC METABOLIC PANEL (7) 2021-01-12 05:32:00 Miri Murillo [facility] CBC W/PLT COUNT & AUTO 2021-01-12 05:32:00 Barry Funes [facility] MAGNESIUM 2021-01-12 05:32:00 Miri Murillo [facility] PHOSPHORUS 2021-01-12 05:32:00 Miri Murillo [facility] (CELLAVISION MANUAL DIFF) 2021-01-12 05:32:00 Barry Funes aemario [facility] POCT-GLUCOSE METER 2021-01-11 23:41:00 Kameron, [facility] IR GASTROSTOMY TUBE 2021-01-11 17:16:00 Kameron, [employer] St [facility] ukes INSERTION W/FLUORO Medical Cente r POCT-GLUCOSE METER 2021-01-11 12:16:00 Kameron, [facility] PT/APTT 2021-01-11 10:13:00 Kameron, [facility] POCT-GLUCOSE METER 2021-01-11 06:20:00 Kameron, [facility] SODIUM 2021-01-11 04:47:00 Miri Murillo [facility] BASIC METABOLIC PANEL (7) 2021-01-11 04:47:00 Miri Murillo [facility] CBC W/PLT COUNT & AUTO 2021-01-11 04:47:00 Barry Funes [facility] MAGNESIUM 2021-01-11 04:47:00 Miri Murillo [facility] PHOSPHORUS 2021-01-11 04:47:00 Miri Murillo [facility] (CELLAVISION MANUAL DIFF) 2021-01-11 04:47:00 Barry Funes [facility] POCT-GLUCOSE METER 2021-01-11 00:05:00 Sudha Melo [facility] C. DIFFICILE GDH TOXIN 2021-01-10 08:33:00 Coreen Marsh [facility] BASIC METABOLIC PANEL (7) 2021-01-10 08:33:00 Miri Murillo [facility] CBC W/PLT COUNT & AUTO 2021-01-10 08:33:00 Barry Funes [facility] MAGNESIUM 2021-01-10 08:33:00 Miri Murillo [facility] PHOSPHORUS 2021-01-10 08:33:00 Lidia Miri Betty [facility] VANCOMYCIN LEVEL, TROUGH 2021-01-10 08:33:00 Barry Funes [facility] POCT-GLUCOSE METER 2021-01-10 06:02:00 Toña [facility] POCT-GLUCOSE METER 2021-01-09 23:24:00 Toña, [facility] SODIUM 2021-01-09 16:00:00 Miri Murillo [facility] POCT-GLUCOSE METER 2021-01-09 15:59:00 Barry Funes [facility] SARS-COV2/RT-PCR ([facility] & 2021-01-09 15:21:00 Miri Murillo [facility] REF LABS) [facility] BASIC METABOLIC PANEL (7) 2021-01-09 02:50:00 Miri Murillo [facility] CBC W/PLT COUNT & AUTO 2021-01-09 02:50:00 Sancho Martinez [facility] MAGNESIUM 2021-01-09 02:50:00 Miri Murillo [facility] PHOSPHORUS 2021-01-09 02:50:00 Miri Murillo [facility] SODIUM 2021-01-08 17:25:00 Lidia Miri F. [facility] XR CHEST 1 VIEW PORTABLE / 2021-01-08 11:05:00 Barry Funes [facility] URINALYSIS W/ REFLEX URINE 2021-01-08 10:56:[address] [facility] BASIC METABOLIC PANEL (7) 2021-01-08 03:14:00 Miri Murillo [facility] CBC W/PLT COUNT & AUTO 2021-01-08 03:14:00 Sancho Martinez [facility] MAGNESIUM 2021-01-08 03:14:00 Miri Murillo Betty [facility] PHOSPHORUS 2021-01-08 03:14:00 Lidia [facility] (CELLAVISION MANUAL DIFF) 2021-01-08 03:14:00 Sancho Martinez [facility] PROCALCITONIN 2021-01-07 20:15:00 Adriano Gonzalez [facility] HC TCD COMPLETE 2021-01-07 15:30:00 Barry Funes [facility] BLOOD CULTURE 2021-01-07 14:25:00 Adriano Gonzalez [facility] SPUTUM CULTURE + GRAM 2021-01-07 14:01:00 Adriano Gonzalez [facility] BLOOD CULTURE 2021-01-07 13:49:00 [facility] BLO[facility], [facility]ERIAL 2021-01-07 13:49:00 Deanne Gonzalez [facility] COMPREHENSIVE METABOLIC 2021-01-07 13:48:[address] [facility] HEPATIC FUNCTION PANEL 2021-01-07 13:48:[address] [facility] 2021-01-07 13:48:00 Shantel [facility] PHOSPHORUS 2021-01-07 13:48:00 [facility] CT BRAIN WITHOUT IV 2021-01-07 13:35:00 Deanne Gonzalez [facility] XR CHEST 1 VIEW PORTABLE / 2021-01-07 11:54:00 [facility]SE [facility]ER 2021-01-07 11:34:00 Shantel [facility] EEG AWAKE AND DROWSY 2021-01-07 08:54:00 Amador Shepard [facility] POCT-GLUCOSE METER 2021-01-07 05:29:00 [facility] (7) 2021-01-07 03:12:00 Miri Murillo [facility] CBC W/PLT COUNT & AUTO 2021-01-07 03:12:00 Sancho Martinez [facility] MAGNESIUM 2021-01-07 03:12:00 Miri Murillo [facility] PHOSPHORUS 2021-01-07 03:12:00 Miri Murillo [facility] POCT-GLUCOSE METER 2021-01-06 23:20:00 Be [facility] POCT-GLUCOSE METER 2021-01-06 17:19:00 Be [facility] SODIUM 2021-01-06 16:23:00 Miri Murillo [facility] POCT-GLUCOSE METER 2021-01-06 11:47:00 Be [facility] CT BRAIN WITHOUT IV 2021-01-06 10:31:00 Bessie Caban [facility] CTA BRAIN 2021-01-06 10:31:[address] [facility] POCT-GLUCOSE METER 2021-01-06 06:30:00 Be [facility] BLOOD GAS, ARTERIAL 2021-01-06 02:10:00 Lina Parson [facility] BASIC METABOLIC PANEL (7) 2021-01-06 02:09:00 Miri Murillo [facility] CBC W/PLT COUNT & AUTO 2021-01-06 02:09:00 Sancho Martinez [facility] MAGNESIUM 2021-01-06 02:09:00 Miri Murillo [facility] PHOSPHORUS 2021-01-06 02:09:00 Lidia [facility] POCT-GLUCOSE METER 2021-01-06 01:17:00 Be [facility] SODIUM 2021-01-05 21:04:00 Lidia [facility] POCT-GLUCOSE METER 2021-01-05 17:54:00 [facility] POCT-GLU[facility]SE METER 2021-01-05 12:02:00 [facility] POCT-GLUCOSE METER 2021-01-05 05:41:00 [facility] BLOOD GAS, ARTERIAL 2021-01-05 04:28:[address] [facility] BASIC METABOLIC PANEL (7) 2021-01-05 04:27:00 Miri Murillo [facility] CBC W/PLT COUNT & AUTO 2021-01-05 04:27:00 Sancho Martinez CH, I [facility] MAGNESIUM 2021-01-05 04:27:00 Miri Murillo [facility] PHOSPHORUS 2021-01-05 04:27:00 Miri Murillo [facility] PROCALCITONIN 2021-01-05 04:27:00 Sancho Martinez [facility] POCT-GLUCOSE METER 2021-01-05 00:12:00 Be [facility] POCT-GLUCOSE METER 2021-01-04 18:03:00 Be [facility] HEMOGLOBIN AND HEMATOCRIT 2021-01-04 14:15:00 Vel Vick [facility] SODIUM 2021-01-04 14:15:00 Miri Murillo [facility] POTASSIUM 2021-01-04 14:15:00 Be [facility] POCT-GLUCOSE METER 2021-01-04 11:44:00 Be [facility] XR CHEST 1 VIEW PORTABLE / 2021-01-04 07:42:00 Sonny Lr [facility] BEDSIDE [facility] BLOOD GAS, ARTERIAL 2021-01-04 04:14:[address] [facility] BASIC METABOLIC PANEL (7) 2021-01-04 04:06:00 Miri Murillo [facility] CBC W/PLT COUNT & AUTO 2021-01-04 04:06:00 Sancho Martinez [facility] MAGNESIUM 2021-01-04 04:06:00 Miri Murillo [facility] PHOSPHORUS 2021-01-04 04:06:00 Miri Murillo [facility] POCT-GLUCOSE METER 2021-01-04 01:05:00 Sal Salinas [facility] Medical Ce nter POCT-GLUCOSE METER 2021-01-03 17:33:00 Sal Salinas [facility] Qing nter SODIUM 2021-01-03 16:10:00 Miri Murillo [facility] [place] CEREBRAL 4 VESSEL 2021-01-03 13:55:00 Sancho Martinezuyen [facility] ANGIOGRAM [facility] [place] EMBOLIZATION EXTENSIVE 2021-01-03 13:55:00 Sancho Martinez [facility] POCT-GLUCOSE METER 2021-01-03 11:26:00 Sal Salinas [facility] nter POCT-GLUCOSE METER 2021-01-03 05:22:00 Sal Salinas [facility] nter BASIC METABOLIC PANEL (7) 2021-01-03 04:09:00 Miri Murillo [facility] CBC W/PLT COUNT & AUTO 2021-01-03 04:09:00 Billy Borja [facility] MAGNESIUM 2021-01-03 04:09:00 Miri Murillo [facility] PHOSPHORUS 2021-01-03 04:09:00 Miri Murillo [facility] BLOOD GAS, ARTERIAL 2021-01-03 04:09:[address] [facility] XR CHEST 1 VIEW PORTABLE / 2021-01-03 00:31:00 Sal Salinas [facility] BEDSIDE [facility] Qing nter POCT-GLUCOSE METER 2021-01-02 23:13:00 Sal Salinas [facility] nter POTASSIUM 2021-01-02 17:50:00 Miri Murillo [facility] POCT-GLUCOSE METER 2021-01-02 17:32:00 Sal Salinas [facility] Ce nter HC VENOUS DOPPLER EXT RAJAT 2021-01-02 17:10:00 Nicanor Vel [facility] VENOUS DOPPLER LEGS 2021-01-02 16:50:00 Nicanor Vel [facility] BILATERAL [facility] SODIUM 2021-01-02 16:05:00 Miri Murillo [facility] NEURO TCD - COMPLETE 2021-01-02 13:04:27 Barry Funes [facility] POCT-GLUCOSE METER 2021-01-02 11:23:00 Sal Salinas [facility] Ce nter POTASSIUM 2021-01-02 11:14:00 Miri Murillo [facility] MAGNESIUM 2021-01-02 11:14:00 Miri Murillo [facility] POCT-GLUCOSE METER 2021-01-02 05:59:00 Sal Salinas [facility] Ce nter XR CHEST 1 VIEW PORTABLE / 2021-01-02 04:28:00 Sal Salinas [facility] BEDSIDE [facility] Ce nter BASIC METABOLIC PANEL (7) 2021-01-02 03:41:00 Miri Murillo [facility] CBC W/PLT COUNT & AUTO 2021-01-02 03:41:00 Billy Borja [facility] MAGNESIUM 2021-01-02 03:41:00 Miri Murillo [facility] PHOSPHORUS 2021-01-02 03:41:00 Miri Murillo [facility] BLOOD GAS, ARTERIAL 2021-01-02 03:41:[address] [facility] POCT-GLUCOSE METER 2021-01-01 23:37:00 Sal Salinas [facility] Ce nter MR BRAIN WITHOUT IV 2021-01-01 22:08:00 Julian Epstein [facility] POCT-GLUCOSE METER 2021-01-01 17:45:00 Sal Salinas [facility] nter NEURO TCD - COMPLETE 2021-01-01 17:05:10 Barry Funes [facility] SODIUM 2021-01-01 15:55:00 Miri Murillo [facility] VANCOMYCIN LEVEL, TROUGH 2021-01-01 15:55:00 Ena Shepherd [facility] MAGNESIUM 2021-01-01 15:55:00 NicanorVel [facility] POTASSIUM 2021-01-01 15:55:00 Nicanor Vel [facility] POCT-GLUCOSE METER 2021-01-01 12:05:00 Sal Salinas [facility] nter BLOOD GAS, ARTERIAL 2021-01-01 07:25:00 Verito Waldron [facility] BASIC METABOLIC PANEL (7) 2021-01-01 05:56:00 Miri Murillo [facility] MAGNESIUM 2021-01-01 05:56:00 Miri Murillo [facility] PHOSPHORUS 2021-01-01 05:56:00 Miri Murillo [facility] POCT-GLUCOSE METER 2021-01-01 05:13:00 Sal Salinas [facility] Qing nter CBC W/PLT COUNT & AUTO 2021-01-01 04:21:00 Billy Borja [facility] XR CHEST 1 VIEW PORTABLE / 2021-01-01 00:39:00 Sal Salinas [facility] BEDSIDE [facility] Ce nter POCT-GLUCOSE METER 2020-12-31 23:26:00 Sal Salinas [facility] nter POCT-GLUCOSE METER 2020-12-31 19:11:00 Sal Salinas [facility] Ce nter SODIUM 2020-12-31 16:09:00 Miri Murillo [facility] POTASSIUM 2020-12-31 16:09:00 Sal Salinas [facility] Ce nter MAGNESIUM 2020-12-31 16:09:00 Sal Salinas [facility] Ce nter XR ABDOMEN / KUB 1 VIEW 2020-12-31 13:46:00 Julian Epstein [facility] HC TCD COMPLETE 2020-12-31 13:30:00 Barry Funes [facility] POCT-GLUCOSE METER 2020-12-31 12:46:00 Sal Salinas [facility] Ce nter BASIC METABOLIC PANEL (7) 2020-12-31 03:46:00 Lina Parson [facility] CBC W/PLT COUNT & AUTO 2020-12-31 03:46:00 Lina Parson [facility] MAGNESIUM 2020-12-31 03:46:00 Lina Parson [facility] POCT-GLUCOSE METER 2020-12-31 00:07:00 Sal Salinas [facility] Ce nter PREPARE LEUKO-REDUCED RBC 2020-12-30 23:54:[address] [facility] HEMOGLOBIN AND HEMATOCRIT 2020-12-30 20:57:00 Naeem Gonzalez [facility] POCT-GLUCOSE METER 2020-12-30 17:11:00 Sal Salinas [facility] Ce nter SODIUM 2020-12-30 17:01:00 Miri Murillo [facility] EEG 2-12 HR CONTINUOUS 2020-12-30 16:50:[address] [facility] MONITORING WITH VIDEO Medical Ce nter HC TCD COMPLETE 2020-12-30 16:45:00 JasperBarry nichols [facility] CT BRAIN WITHOUT IV 2020-12-30 12:27:00 Deanne Gonzalez [facility] POCT-GLUCOSE METER 2020-12-30 12:01:00 Sal Salinas [facility] Ce nter SPUTUM CULTURE + GRAM 2020-12-30 09:37:00 Waldron [facility] PROCALCITONIN 2020-12-30 09:37:00 [facility] s [facility] URINALYSIS WITH 2020-12-30 07:41:00 [facility] MICROSCOPIC IF INDICATED [facility] URINALYSIS MICROSCOPIC 2020-12-30 07:41:[address] [facility] BLOOD CULTURE 2020-12-30 07:40:[address] [facility] BLOOD CULTURE 2020-12-30 07:35:[address] [facility] POCT-GLUCOSE METER 2020-12-30 06:56:00 Sal Salinas [facility] Ce [facility]ter EEG 12-26 HR CONTINUOUS 2020-12-30 06:13:[address] [facility] MONITORING WITH VIDEO [facility] BASIC METABOLIC PANEL (7) 2020-12-30 04:55:00 Sal Salinas [facility] Ce nter CBC W/PLT COUNT & AUTO 2020-12-30 04:55:00 Sal Salinas [facility] DIFFERENTIAL [facility]ter MAGNESIUM 2020-12-30 04:55:00 Vel Vick [facility] (CELLAVISION MANUAL DIFF) 2020-12-30 04:55:00 Jordanswathimorena Salinas, [facility] nter XR CHEST 1 VIEW PORTABLE / 2020-12-30 03:22:00 Sunnymorena Salinas, [facility] BEDSIDE [facility] nter SODIUM 2020-12-30 00:24:00 Jordanswathimorena Salinas, [facility] nter POCT-GLUCOSE METER 2020-12-30 00:09:00 Sunnymorena Salinas, [facility] nter SPUTUM CULTURE + GRAM 2020-12-29 17:17:00 Jordanswathimorena Salinas, [facility] STAIN [facility] nter HEMOGLOBIN AND HEMATOCRIT 2020-12-29 17:16:00 Jordanswathimorena Salinas, [facility] nter POCT-GLUCOSE METER 2020-12-29 17:16:00 Jordanswathimorena Salinas, [facility] SODIUM 2020-12-29 16:17:00 Jordanswathimorena Salinas, [facility] nter TRANSFUSE LEUKO-REDUCED 2020-12-29 15:50:15 Verito Waldron [facility] RED BLOOD CELLS [facility] 2D ECHO W/ DOPPLER 2020-12-29 14:23:23 Sal Salinas [facility] (CW/PW/COLOR) [facility] nter POCT-GLUCOSE METER 2020-12-29 12:19:00 Jordanswathimorena Salinas [facility] nter EEG 12-26 HR CONTINUOUS 2020-12-29 11:34:[address] [facility] MONITORING WITH VIDEO [facility] CTA BRAIN 2020-12-29 10:40:00 [facility] BLOOD GAS, ARTERIAL 2020-12-29 07:43:00 Julian Epstein [facility] BLOOD GAS, ARTERIAL 2020-12-29 06:07:00 Maria Mercado [facility] POCT-GLUCOSE METER 2020-12-29 06:07:00 Sal Salinas [facility]ter MAGNESIUM 2020-12-29 05:59:00 Sal Salinas, [facility] PHOSPHORUS 2020-12-29 05:59:00 Sal Salinas, [facility] BASIC METABOLIC PANEL (7) 2020-12-29 05:59:00 Sal Salinas, [facility] St [facility] CBC W/PLT COUNT & AUTO 2020-12-29 05:59:00 Sal Salinas [facility] DIFFERENTIAL [facility] Ce [facility]ter HEMOGLOBIN A1C 2020-12-29 05:59:00 Sal Salinas, [facility] (CELLAVISION MANUAL DIFF) 2020-12-29 05:59:00 Sal Salinas [facility] Ce nter XR CHEST 1 VIEW PORTABLE / 2020-12-29 03:01:00 Sal Salinas [facility] BEDSIDE [facility] Ce nter XR ABDOMEN / KUB 1 VIEW 2020-12-28 23:02:00 Lina Parson [facility] CBC W/PLT COUNT & AUTO 2020-12-28 22:13:00 Sal Salinas [facility] DIFFERENTIAL [facility] Ce [facility] PT/APTT 2020-12-28 22:13:00 Sal Salinas [facility]ter COMPREHENSIVE METABOLIC 2020-12-28 22:13:00 Lina Parson [facility] MAGNESIUM 2020-12-28 22:13:00 Lina Parson [facility] PHOSPHORUS 2020-12-28 22:13:00 [facility] Lina [facility] (CELLAVISION MANUAL DIFF) 2020-12-28 22:13:00 Sal Salinas [facility] Ce nter CT BRAIN WITHOUT IV 2020-12-28 21:03:00 Jason Galan [facility] CONTRAST PORTABLE [facility] PREPARE RBC 2020-12-28 20:43:00 Ava Whitt [facility] NV INSERT 2020-12-28 13:56:27 Sal Salinas [facility] CATH,ART,PERCUT,SHORTTERM [facility] CRANIOTOMY,ANEURYSM 2020-12-28 13:43:[address] [facility] CLIPPING [facility] ABORH, MANUAL 2020-12-28 13:02:00 Milvia Srivastava [facility] SARS-COV2/RT-PCR ([facility] & 2020-12-28 12:49:00 Coreen Marsh [facility] REF LABS) [facility] HEMOGLOBIN A1C 2020-12-28 12:45:00 Sal Salinas [facility] nter PHENYTOIN LEVEL, TOTAL 2020-12-28 12:45:00 Sal Salinas [facility] nter TYPE AND SCREEN, AUTOMATED 2020-12-28 12:45:00 Coreen Marsh [facility] BLOOD GAS, ARTERIAL 2020-12-28 12:40:00 Sal Salinas [facility] nter CT BRAIN WITHOUT IV 2020-12-28 11:17:00 MauroYudelka [facility] CTA BRAIN 2020-12-28 11:17:00 [facility] POCT-GLUCOSE METER 2020-12-28 11:17:00 Sal Salinas [facility] ntlloyd HEPATIC FUNCTION PANEL 2020-12-28 10:04:[address] [facility] APTT 2020-12-28 10:04:00 [facility] PROTHROMBIN TIME/INR 2020-12-28 10:04:00 Vel Vick [facility] BASIC METABOLIC PANEL (7) 2020-12-28 10:04:00 Sal Salinas [facility] ntlloyd CBC W/PLT COUNT & AUTO 2020-12-28 10:04:00 Vel Vick [facility] (CELLAVISION MANUAL DIFF) 2020-12-28 10:04:00 Vel Vick [facility] XR CHEST 1 VIEW PORTABLE / 2020-12-28 09:44:00 Sal Salinas [facility] BEDSIDE [facility] jaz NEUROPHYSIOLOGY REPORT - 2020-12-28 00:00:00 Provider, Default C HI [facility] SCAN Scanning [facility] REPORT OF PROCEDURE - 2020-12-28 00:00:00 Provider, Default [facility] ENDOSCOPY SCAN [facility] Plan of Care Planned Activity Planned Date Details Comments Source Future Scheduled 2021-01-23 INFLUENZA VACCINE (#1) [facility] [code = INFLUENZA Medical Ce nter VACCINE (#1)] Future Scheduled 2020-05-[address] [facility] 00:00:00 (12+) [code = Medical Center DEPRESSION SCREENING (12+)] Future Scheduled 2020-05-25 FALLS RISK SCREENING [facility] 00:00:00 [code = FALLS RISK Medical C enter SCREENING] Future Scheduled 2010 PNEUMOCOCCAL 65+ YRS [facility] Test 00:00:00 (1 of 1 - [facility] [id number] PCV13) [code = PNEUMOCOCCAL 65+ YRS (1 of - UDYH64_Ctylonb PCV13)] Future Scheduled 1995-09-29 SHINGLES VACCINES ([address] [facility] 00:00:00 of 2) [code = SHINGLES Medic al Center VACCINES (1 of 2)] Future Scheduled 1964 DTAP/TDAP/TD VACCINES [facility] 00:00:00 (1 - Tdap) [code = Medical C enter DTAP/TDAP/TD VACCINES (1 - Tdap)] Future Scheduled 1963-09-29 HEPATITIS C [facility]CREENING [facility] 00:00:00 [code = HEPATITIS C Medical Center SCREENING] Future Scheduled 1957 COVID-19 VACCINE (1) [facility] Test 00:00:00 [code = COVID-[address] VACCINE (1)] Future Scheduled [address] [facility] Test 00:00:00 [facility] colon (procedure) [code = 297137441] Encounters Start End Encounter Admission Attending Care Care Encounter Source Date/Time Date/Time Type Type Clinicians Facility Department ID 2020-12-28 Inpatient ER [facility] Neuro ICU [id number] [facility] 09:17:00 HERACLIO RODRIGUEZ 2021-06-06 2021-06-06 Outpatient DMG [id number] [facility] 12:01:00 12:01:00 Medica l Group 2021-01-21 2021-01-21 Telephone Perry [facility] [id number] 00[facility] 00:[facility]:00 Sung In [facility] 2021-01-14 2021-01-14 Surgery Lidia [facility] [id number] 08:15:00 09:52:00 Miri Cardenas [facility] 2021-01-14 2021-01-14 Anesthesia Fei Charles [facility] [id number] 08:07:00 09:24:00 Event Henny García [facility] 2021-01-03 2021-01-03 Anesthesia Staci [facility] [id number] 12:06:00 14:16:[address] [facility] 2021-01-03 2021-01-03 Surgery Virtual, [facility] [id number] 10:30:00 11:30:00 Surgeon [facility] 2021-01-02 2021-01-02 Outside Pcp, No [facility] [id number] 00:00:00 00:00:00 Orders [facility] 2020-12-28 2020-12-28 Anesthesia Stefan Jose [facility] [id number] 13:58:00 20:37:00 Event Fie Charles [facility] 2020-12-28 2020-12-28 Surgery Ankurer, [facility] [id number] 12:38:00 19:25:00 Ava [facility] 2020-12-28 2020-12-28 Travel [facility] [id number] [facility] 00:[facility]:00 00:00:00 [facility] Results Test Description Test Time Test Comments Results Result Comments Source POC-Glucose meter 2021-01-19 06:20:00 Test Item Value Reference Range Interpretation Comme [facility] POC-Glucose Meter (test code = 130 mg/dL 70-110 H : Notified RN/MD: TESTED AT [place] [address]) [address] [place] [address], [address]: Legal Billing Coordinator/Techni marielos ID = [id number] for KEMP, JHO CARISA Lab Interpretation (test code = Abnormal 12238-3) [facility] [id number] 06:20:00 Test Item Value Reference Range Interpretation Comments POC-GLUCOSE METER 130 mg/dL 70-110 H : Notified RN/MD: (NAZARIO) (test code = TESTED AT [place] [address]) [facility], [address]: Legal Billing Coordinator/Techni marielos ID = [id number] for KEMP, JHO CARISA POCT-GLUCOSE [id number] 00:19:00 Test Item Value Reference Range Interpretation Comments POC-GLUCOSE METER 114 mg/dL 70-110 H : Notified RN/MD: (NAZARIO) (test code = TESTED AT [place] [address]) [facility], [address]: Legal Billing Coordinator/Techni marielos ID = [id number] for ROBIN KEMP SARS-CoV2/RT-PCR (Asymptomatic ONLY)2021-01-18 19:18:00 Test Item Value Reference Range Interpretation Comments SARS-COV2/RT-PCR (test Negative Negative code = 49752-0) NETTIE (test code = NETTIE) Negative result [...] the Act. Testing was performed using the ForMune SARS-CoV-2 assay. Fact Sheet for Healthcare Providers:https://www.abelardo matos/taco/RT SARS-CoV-2 HCP Fact Sheet 51-122654.pdf Fact Sheet for Healthcare Patients:https://www.gonzalo moss/taco/RT SARS-CoV-2 Patient Fact Sheet EN 51-648095N5.pdf Lab Interpretation Normal (test code = 29462-5) [facility] & REF LABS)2021-01-18 19:18:00 Test Item Value Reference Range Interpretation Comments SARS-COV2/RT-PCR (test code = Negative Negative 3288823) Negative result for this test determines that [...] under Section 564(g) of the Act.Testing was performed using t jethro ForMune SARS-CoV-2 assay.Fact Sheet for Healthcare Providers:https://www.molecular.rojas/taco/RT SARS-CoV-2 HCP Fact Sheet 51- 705787.pdfFact Sheet for Healthcare Patients:https://www.molecular.rojas/taco/RT SARS-CoV-2 Patient Fact Sheet EN 51-276919P9.pdfPOCT-GLUCOSE [id number] 18:11:00 Test Item Value Reference Range Interpretation Comments POC-GLUCOSE METER 125 mg/dL 70-110 H : TESTED A T [facility] 6720 (BEAKER) (test code = [facility] Boo [facility], 1538) [address]: Legal Billing Coordinator/Techni marielos ID = [id number] for Ca vitt, Eminae POCT-GLUCOSE [id number] 13:14:00 Test Item Value Reference Range Interpretation Comments POC-GLUCOSE METER 103 mg/dL 70-110 : TESTED A T [facility] 6720 (BEAKER) (test code = [facility] Boo [facility], 1538) [address]: Legal Billing Coordinator/Techni marielos ID = [id number] for Ca vitt, Eminae POCT-GLUCOSE [id number] 12:29:00 Test Item Value Reference Range Interpretation Comments POC-GLUCOSE METER 108 mg/dL 70-110 : TESTED A T [facility] 6720 (BEAKER) (test code = [facility] Boo [facility], 1538) [address]: Legal Billing Coordinator/Techni marielos ID = [id number] for Ca vitt, Eminae Basic Metabolic [id number] 10:16:00 Test Item Value Reference Range Interpretation [...] Calcium (test code = 8.8 mg/dL 8.4-10.2 53925-3) EGFR (test code = 92 mL/min/1.73 [place] [address]-5) NOT ACCURATE CREATININE CLEARANCE IN PREDICTING GLOMERULAR FILTRATION RATE . ESTIMATED GFR I S NOT APPLICABLE FOR DIALYSIS PATIENTS. NETTIE (test code = NETTIE) Legal Billing Coordinator ID - PIAYA L Lab Interpretation Abnormal (test code = 99388-9) [facility] MET[facility]OLIC [id number] 10:16:00 Test Item Value Reference Range Interpretation [...] S NOT APPLICABLE FOR DIALYSIS PATIEN TS. Legal Billing Coordinator ID - PIAYA LCBC with platelet count + automated [id number] 06:35:00 Test Item Value Reference Range Interpretation Comments WBC (test code = 6690-2) 12.6 See_Comment H [A utomated message] The system angelcam generated this result transmitted ref erence range: 3.5 - 10 .5 K/L. The refe rence range was not u sed to interpret this result as normal/abnor mal. RBC (test code = 789-8) 3.22 See_Comment L [Au tomated message] The system angelcam generated this result transmitted ref erence range: 3.93 - 5 .22 M/L. The refe rence range was not u sed to interpret this result as normal/abnor mal. MCHC (test code = 786-4) 31.4 See_Comment L [A utomated message] The system angelcam generated this result transmitted ref erence range: [...] See_Comment [Aut omated message] 777-3) The system angelcam generated this result transmitted ref erence range: 150 - 45 0 K/CU MM. The referen ce range was not u sed to interpret this result as normal/abnor mal. MPV (test code = 8.5 fL 9.4-12.3 L 63085-8) nRBC (test code = 413) 0 See_Comment [Aut omated message] The system angelcam generated this result transmitted ref erence range: [...] H [Aut omated message] 670) The system angelcam generated this result transmitted ref erence range: 1.56 - 6 .13 K/L. The refe rence range was not u sed to interpret this result as normal/abnor mal. # Lymphs (test code = 1.78 See_Comment [Auto mated message] 414) The system angelcam generated this result transmitted ref erence range: 1.18 - 3 .74 K/L. The refe rence range was not u sed to interpret this result as normal/abnor mal. # Monos (test code = 0.91 See_Comment H [Autom ated message] 415) The system angelcam generated this result transmitted ref erence range: 0.24 - 0 .36 K/L. The refe rence range was not u sed to interpret this result as normal/abnor mal. # Eos (test code = 416) 0.29 See_Comment [Au tomated message] The system angelcam generated this result transmitted ref erence range: 0.04 - 0 .36 K/L. The refe rence range was not u sed to interpret this result as normal/abnor mal. # Baso (test code = 417) 0.04 See_Comment [A utomated message] The system angelcam generated this result transmitted ref erence range: 0.01 - 0 .08 K/L. The refe rence range was not u sed to interpret this result as normal/abnor mal. Immature 1 % 0-1 Granulocytes-Relative (test code = 2801) Lab Interpretation (test Abnormal code = 18202-8) [facility] [id number] 06:35:00 Test Item Value Reference Range Interpretation Comments POC-GLUCOSE METER 114 mg/dL 70-110 H : TESTED A T [facility] 6720 (BEAKER) (test code = [address], 1538) [address]: Legal Billing Coordinator/Techni marielos ID = [id number] for BOLA GARVIN CBC W/PLT COUNT & AUTO [id number] 06:35:00 Test Item Value Reference Range Interpretation [...] PERCENT (BEAKER) (test code = 2801) POCT-GLUCOSE [id number] 00:53:00 Test Item Value Reference Range Interpretation Comments POC-GLUCOSE METER 112 mg/dL 70-110 H : TESTED A T [facility] 6720 (BEAKER) (test code = JOAN Boo [facility], 1538) [address]: Legal Billing Coordinator/Techni marielos ID = [id number] for BOLA GARVIN POCT-GLUCOSE [id number] 17:41:00 Test Item Value Reference Range Interpretation Comments POC-GLUCOSE METER 120 mg/dL 70-110 H : TESTED A T [facility] 6720 (BEAKER) (test code [facility], = 1538) [address]: Legal Billing Coordinator/Techni marielos ID = [id number] for JUAN ANTONIO TOLBERT EEG AWAKE AND [id number] 16:01:00For STAT EEG- after 5 PM weekdays, weekends and holidays, page the on-call EEG TechReason for exam:->Altered mental status, waxing and waning neurological exam [facility] : 1945 Sex: FNEUROPHYSIOLOGY EEG REPORT DATES OF TEST: 01/17/21DATE OF REPORT: 01/17/21Name: Sonu ArellanoMRN: [id number]: [id number] time: 14:51Stop time: 15:12KJM89: R56.9 CPT: 12946뻐History: 75 yo female with history of HTN and AMSMedications: levetiracetam, modafinil, nimodipine, enoxaparin, famotidine, ipratropium-albuterol, cyanocobalaminTECHNICAL SUMMARY: This is a digital video- EEG recorded with 32 input channels reviewed with bipolar and referential montages using the modified combinatorialsystem nomenclature. DESCRIPTION OF RECORD: During a maximally stimulated state, there is no well defined posterior dominant rhythm. The background lacks a voltage or frequency gradient. It is represented by a moderate voltage 4-6 Hz and occasional 1-3 Hz frequencies. Spontaneous variability is preserved and the record is reactive to sensory stimulation applied by the nanotechnology engineering technologist as evidenced bythe predominance of faster frequency spectra following sensory stimulation. Sleep patterns were not recorded.Focal features:a. Focal background attenuation and slow1-3 hz activity, right hemisphereb. Intermittent focal slow 1-3 hz activity left temporal and occipitalỨEvents: No electro-clinical or electrographic seizuresHyperventilation was not performed. PHOTIC STIMULATION: Photic stimulat ion across a broad frequency spectrum (1-33 Hz) did not trigger abnormal waveforms or responses. 𐿒ECG: Sinus rhythm IMPRESSION: Abnormal EEG in comac. [...] electro-clinical or electrographic seizures observed during this recording.ᱡ𗨖낻Melody Cisse MD, PhDEpilepsy Attending AWAKE AND [id number] 16:01:00Interface, External Ris In - 01/17/2021 4:01 PM CDTNEUROPHYSIOLOGY EEG REPORT DATES OF TEST: 01/17/21DATE OF REPORT: 01/17/21Name: Sonu ArellanoMRN: [id number]: [id number] time: 14:51Stop time:15:25FNF31: R56.9 CPT: 31185𕕴History: 75 yo female with history of HTN and AMSMedications: levetiracetam, modafinil, nimodipine, enoxaparin, famotidine, ipratropium-albuterol, cyanocobalaminTECHNICAL SUMMARY: This is a digital video-EEG recorded with 32 input channels reviewed with bipolar and referential montages using the modified combinatorial system nomenclature. DESCRIPTION OF RECORD:During a maximally stimulated state, there is no well defined posterior dominant rhythm. The background lacks a voltage or frequency gradient. It is represented by a moderate voltage 4-6 Hz and occasional 1-3 Hz frequencies. Spontaneous variability is preserved and the record is reactive to sensory stimulation applied by the nanotechnology engineering technologist as evidenced by the predominance of faster frequency spectra following sensory stimulation. Sleep patterns were not recorded.Focal features:a. Focal background attenuation and slow1-3 hz activity, right hemisphereb. Intermittent focal slow 1-3 hz activity left temporal and occipitalɥEvents: No electro-clinical or electrographic seizuresHyperventilation was not performed. PHOTIC STIMULATION: Photic stimulation across a broad frequency spectrum (1-33Hz) did not trigger abnormal waveforms or responses. 𑎕ECG: Sinus rhythm IMPRESSION: Abnormal EEG in comac. Continuous slow, generalized , theta/delta range, reactived. Focal background attenuation and slow1-3 hz activity, right hemispheree. Intermittent focal slow 1-3 hz activity left temporal and occipitalCLINICAL CORRELATION:The character of this background slowing as seen in this recordindicates the presence of a moderate degree of encephalopathy that is non-specific in etiology. The focal background attenuation and slow activity in the right hemisphere indicates the presence of a focal lesion broadly affecting the right hemisphere. The intermittent focal slow activity affecting theleft temporal and occipital regions indicates the presence of a focal dysfunction involving these regions. There were no epileptiform discharges and no electro-clinical or electrographic seizures observed during this recording.휼ᐃ羁Melody Cisse MD, PhDEpilepsy Attending [facility] Diego[facility]inal[facility] w/Microscopic + Reflex to Culture 2021-01-17 15:09:00 Test Item Value Reference Range Interpretation Comments Color, UA (test code Light Yellow = 5778-6) Clarity, UA (test Clear code = 5767-9) Specific [place], UA 1.021 1.001-1.035 (test code = 5811-5) pH, UA (test code = 6.0 5.0-8.0 5803-2) Protein, UA (test 20 mg/dL Negative A code = 35752-8) Glucose, UA (test Negative Negative code = 365) Ketones, UA (test Negative Negative code = 2514-8) Bilirubin, UA (test Negative Negative code = 67817-3) Blood, UA (test code Small Negative A = 33232-1) Nitrite, UA (test Positive Negative A code = 5802-4) Leukocytes, UA (test Large Negative A code = 5799-2) Urobilinogen, UA 0.2 mg/dL 0.2-1 (test code = 34948-9) RBC, UA (test code = 7 See_Comment [Autom ated 52458-1) message] The system which generated this result [...] . Bacteria, UA (test Few code = 00648-2) Mucus (test code = Rare 8247-9) Squam Epithel, UA <1 See_Comment [Automate d (test code = 33625-7) messag e] The system which generated this result transmitted reference range : /HPF. The reference range was not used to interpret this result as normal/abnormal . Crystals, Urine (test None Seen code = 61888-5) Yeast (test code = Occasional 98490-1) Specimen Source (test code = 2795) NETTIE (test code = NETTIE) Legal Billing Coordinator ID - [auto]Legal Billing Coordinator ID - tech Lab Interpretation Abnormal (test code = 88885-5) [facility]FLEX URINE [id number] 15:09:00 Test Item Value Reference Range Interpretation [...] = Occasional 1585) SOURCE(BEAKER) (test code = 2795) Legal Billing Coordinator ID - [auto]Legal Billing Coordinator ID - techPOCT-GLUCOSE [id number] 12:38:00 Test Item Value Reference Range Interpretation Comments POC-GLUCOSE METER 119 mg/dL 70-110 H : [facility] (BEAKER) ([facility], = 1538) 75869: Legal Billing Coordinator/Techni marielos ID = [id number] for ESSENCE REYESI, TSIGHEREDA CT, CTANGIO [id number] 12:18:00Unlisted Reason for Exam - Click Yes and Enter Reason Below->YesUnlisted Reason for Exam->SAH s/p clip, AMS [facility] : 1945 Sex: FAddendum BeginsREPORT STATUS:A 3-D reconstructions were added to PACS after the report was finalized. These do not significantly alter the interpretation. Signed: Opal Carrilloephiwot Verified Date/Time: 01/17/2021 12:18:02 Addendum EndsFINAL REPORT CLINICAL HISTORY: Unlisted Reason for ExamSAH s/p clip, AMS TECHNIQUE: Initially, noncontrast head CT images wereperformed. Contiguous contrast-enhanced axial images through the head [...] reconstruction technique. COMPARISON: CT 01/07/2021, CTA 01/06/2021 FINDINGS:Pleasenote that CTA is inherently insensitive in evaluating [...] of hemorrhage or infarct. There is no h ydrocephalus or midline shift. No major branch vessel occlusion or high-grade focal stenosis. Prior clipping of right MCA aneurysm with unchanged small residual neck in the anterior aspect. 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 The major intradural venous sinuses are unremarkable for phase of contrast. 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 Signed: Opal Carrillo Verified Date/Time: 01/16/2021 18:36:53 RAD, CHEST, 1 VIEW, NON [id number] 10:52:00Reason for exam:->amsShould this be performed at the bedside?->Yes [facility] : 1945 Sex: FFINALREPORT INDICATION: ams COMPARISON: None TECHNIQUE: Single frontal view of the chest. FINDINGS: Lungs and pleura: Right greater than left airspace diseaseHeart and mediastinum: Normal heart size. Unremarkable mediastinal contours.Osseous structures: No acute abnormality.Other: None. IMPRESSION: Right greater than left airspace disease concerning for pneumonia Signed: MaxwellAna mcfadden Kathiahiwot Verified Date/Time: 01/17/2021 10:52:35 Reading Location: [facility] Radiology ReadingRoom XR chest 1 view portable / [id number] 10:52:00Interface, External Ris In - 01/17/2021 10:54 AM CDTFINAL REPORT INDICATION: ams COMPARISON: None TECHNIQUE: Single frontal view of the chest. FINDINGS: Lungs and pleura: Right greater than left airspace diseaseHeart and mediastinum: Normal heart size. Unremarkable mediastinal cont ours.Osseous structures: No acute abnormality.Other: None. IMPRESSION: Right greater than left airspace disease concerning for pneumonia Signed: MaxwellAna mcfadden Kathiaort Verified Date/Time: 01/17/2021 10:52:35 Reading Location: [facility] Radiology Reading Room [facility])2021-01-17 10:13:00 Test Item Value Reference Range Interpretation Comments SARS-COV2/RT-PCR (test Negative Not Detected, Negative, code = 3915835) See external report for linked test SARS-COV-2 PERFORMING LAB [facility] RIANNA (test code = 7031056) Negative result for this test determines that [...] justifying the authorization of the emergency use ofin vitro diagnostic tests for detection and/or diagnosis of COVID-19 is terminated under Section 564(b)(2) of the Act or the EUA is revoked under Section 564(g) of the Act.Fact Sheet for Healthcare Prov iders:https://www.GetBulb/sites/default/files/product/documents/Fact_Sheet_HC _Cznnvbafj_Ddvo_GBVT-IwR-0.pdfFact Sheet for Healthcare Patients:https://www.Get[employer]/sites/default/files/product/docume nts/Hrte_Kfyoy_Dawcmmzf_Vlso_SRQJ-KfV-4.pdfPerforming Laboratory:[facility], [place] [address]Trtgdd Differential 2021-01-17 09:59:00 Test Item Value Reference Range Interpretation Comments % Neutros (test code = 82 % 2816) % Lymphs (test code = 10 % 2817) % Monos (test code = 6 % 2818) % Eos (test code = 2819) 1 % % Bands (test code = 1 % 0-10 2206) # Neutros (test code = 7.54 K/ul [...] = 3438) NETTIE (test code = NETTIE) Legal Billing Coordinator ID - Margarita OverholtUser comments: Slide comments: Lab Interpretation (test Abnormal code = 18253-3) [facility] W/PLT COUNT & AUTO [id number] 09:59:00 Test Item Value Reference Range Interpretation [...] CONCENTRATION Increased (CELLAVISION)(BEAKER) (test code = 3438) Legal Billing Coordinator ID - Margarita OverholtUser comments: Slide comments:[id number] 07:02:00 Test Item Value Reference Range Interpretation Comments Magnesium (test code = 2.0 mg/dL 1.6-2.6 32875-0) NETTIE (test code = NETTIE) Legal Billing Coordinator STEVE CONTRERAS M Lab Interpretation (test Normal code = 54041-7) [facility] DiegoPhosphorus2021-08-26 07:02:00 Test Item Value Reference Range Interpretation Comments Phosphorus (test code = 3.1 mg/dL 2.3-4.7 2777-1) NETTIE (test code = NETTIE) Legal Billing Coordinator ID Aida CONTRERAS M Lab Interpretation (test Normal code = 52611-2) [facility] Diego[facility] METABOLIC [id number] 07:02:00 Test Item Value Reference Range Interpretation [...] S NOT APPLICABLE FOR DIALYSIS PATIEN TS. Legal Billing Coordinator ID - BEN [id number] 07:02:00 Test Item Value Reference Range Interpretation Comments MAGNESIUM (BEAKER) (test code = 2.0 mg/dL 1.6-2.6 627) Legal Billing Coordinator ID - BEN [id number] 07:02:00 Test Item Value Reference Range Interpretation Comments PHOSPHORUS (BEAKER) (test code = 3.1 mg/dL 2.3-4.7 604) Legal Billing Coordinator ID - BEN MPOCT-GLUCOSE [id number] 05:38:00 Test Item Value Reference Range Interpretation Comments POC-GLUCOSE METER 155 mg/dL 70-110 H : TESTED A T [facility] 6720 (BEAKER) (test code = JOAN Haddad [facility], 1538) 60138: Legal Billing Coordinator/Techni marielos ID = [id number] for BOLA GARVIN POCT-GLUCOSE [id number] 00:31:00 Test Item Value Reference Range Interpretation Comments POC-GLUCOSE METER 130 mg/dL 70-110 H : TESTED A T [facility] 6720 (BEAKER) (test code = [facility], 1538) 24309: Legal Billing Coordinator/Techni marielos ID = [id number] for BOLA GARVIN CTA [id number] 18:36:00Interface, External Ris In - 01/17/2021 12:20 PM CDTAddendum BeginsREPORT STATUS:A 3-D reconstructions were added to PACS after the report was finalized. These do not significantlyalter the interpretation. Signed: Opal Carrillo MDReport Verified Date/Time: 01/17/2021 12:18:02 Addendum EndsFINAL REPORT CLINICAL HISTORY: Unlisted Reason for ExamSAH s/p clip, AMS TECHNIQUE: Initially, noncontrast head CT images were performed. Contiguous contrast-enhanced axial images through the head with coronal and sagittal reformations to assess the arterial circulation.3-D reconstructions were not available at time of [...] regions. Unchanged extent of right MCA territory inf arct. No new site of hemorrhage or infarct. There is no hydrocephalus or midline shift. No major branch vessel occlusion or high-grade focal stenosis. Prior clipping of right MCA aneurysm with unchanged small residual neck in the anterior aspect. 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 The major intradural venous sinuses are unremarkable for phase of contrast. 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 Signed: Opal Crow Verified Date/Time: 01/16/2021 18:36:53 [facility] CampusPOCT-GLUCOSE [id number] 18:33:00 Test Item Value Reference Range Interpretation Comments POC-GLUCOSE METER 91 mg/dL 70-110 : TESTED A T [facility] 6720 (BEAKER) (test code = [facility], 1538) 42814: Legal Billing Coordinator/Techni marielos ID = [id number] for Dom rachel Lucía POCT-GLUCOSE [id number] 12:07:00 Test Item Value Reference Range Interpretation Comments POC-GLUCOSE METER 131 mg/dL 70-110 H : TESTED A T [facility] 6720 (BEAKER) (test code [facility], = 1538) 90782: Legal Billing Coordinator/Techni marielos ID = [id number] for LINDA TOLBERTA POCT-GLUCOSE [id number] 07:31:00 Test Item Value Reference Range Interpretation Comments POC-GLUCOSE METER 129 mg/dL 70-110 H : TESTED A T [facility] 6720 (BEAKER) (test code = [facility], 1538) 43136: Legal Billing Coordinator/Techni marielos ID = [id number] for DE NNIS, PREETI BASIC METABOLIC [id number] 05:07:00 Test Item Value Reference Range Interpretation [...] 697) EGFR (BEAKER) (test 90 mL/min/1.73 ESTIMA LAEXANDRE GFR IS code = 1092) sq m NOT ACCURATE CREATININE CLEARANCE IN PREDICTING GLOMERULAR FILTRATION RATE . ESTIMATED GFR I S NOT APPLICABLE FOR DIALYSIS PATIEN TS. Legal Billing Coordinator ID - EYAD [id number] 05:07:00 Test Item Value Reference Range Interpretation Comments MAGNESIUM (BEAKER) (test code = 2.0 mg/dL 1.6-2.6 627) Legal Billing Coordinator ID - EYAD [id number] 05:07:00 Test Item Value Reference Range Interpretation Comments PHOSPHORUS (BEAKER) (test code = 3.3 mg/dL 2.3-4.7 604) Legal Billing Coordinator ID - EYAD LCBC W/PLT COUNT & AUTO [id number] 04:53:00 Test Item Value Reference Range Interpretation [...] PERCENT (BEAKER) (test code = 2801) POCT-GLUCOSE [id number] 00:23:00 Test Item Value Reference Range Interpretation Comments POC-GLUCOSE METER 108 mg/dL 70-110 : TESTED A T [facility] 6720 (BEAKER) (test code = [facility], 1538) 30109: Legal Billing Coordinator/Techni marielos ID = [id number] for DE NNIS, PREETI POCT-GLUCOSE [id number] 18:04:00 Test Item Value Reference Range Interpretation Comments POC-GLUCOSE METER 125 mg/dL 70-110 H : TESTED A T [facility] 6720 (BEAKER) (test code [facility], = 1538) 94136: Legal Billing Coordinator/Techni marielos ID = [id number] for TSEG GAI, TSIGHEREDA POCT-GLUCOSE [id number] 12:25:00 Test Item Value Reference Range Interpretation Comments POC-GLUCOSE METER 107 mg/dL 70-110 : TESTED A T [facility] 6720 (BEAKER) (test code [facility], = 1538) 63251: Legal Billing Coordinator/Techni marielos ID = [id number] for JUAN ANTONIO TOLBERT BASIC METABOLIC [id number] 07:39:00 Test Item Value Reference Range Interpretation [...] S NOT APPLICABLE FOR DIALYSIS PATIEN TS. Legal Billing Coordinator ID - EYAD [id number] 07:39:00 Test Item Value Reference Range Interpretation Comments MAGNESIUM (BEAKER) (test code = 2.2 mg/dL 1.6-2.6 627) Legal Billing Coordinator ID - EYAD [id number] 07:39:00 Test Item Value Reference Range Interpretation Comments PHOSPHORUS (BEAKER) (test code = 2.9 mg/dL 2.3-4.7 604) Legal Billing Coordinator ID - EYAD LPOCT-GLUCOSE [id number] 07:04:00 Test Item Value Reference Range Interpretation Comments POC-GLUCOSE METER 101 mg/dL 70-110 : TESTED A T [facility] 6720 (BEAKER) (test code = ABDIRAHMANKIERAN Haddad [facility], 1538) 51036: Legal Billing Coordinator/Techni marielos ID = [id number] for DE NNIS, PREETI CBC W/PLT COUNT & AUTO [id number] 05:55:00 Test Item Value Reference Range Interpretation [...] % 0-1 PERCENT (BEAKER) (test code = 5512) POCT-GLUCOSE [id number] 00:44:00 Test Item Value Reference Range Interpretation Comments POC-GLUCOSE METER 94 mg/dL 70-110 : TESTED A T [facility] 6720 (BEAKER) (test code = JOAN Haddad [facility], 1538) 22116: Legal Billing Coordinator/Techni marielos ID = [id number] for PREETI BRANDT POCT-GLUCOSE [id number] 18:37:00 Test Item Value Reference Range Interpretation Comments POC-GLUCOSE METER 95 mg/dL 70-110 : TESTED A T [facility] 6720 (BEAKER) (test code = JOAN Haddad [facility], 1538) 95427: Legal Billing Coordinator/Techni marielos ID = [id number] for FRANSISCO MICHEL SPUTUM CULTURE + GRAM [id number] 16:16:00 Test Item Value Reference Range Interpretation Comments CULTURE (BEAKER) (test SALMONELLA A 1+ Sa lmonella code = 1095) ENTERICA SSP enterica ssp ENTERICA entericaSent [facility] and [facility] Ampicillin (test code [...] >25 epithelial (BEAKER) (test code = cells 048529) GRAM STAIN RESULT >25 epithelial (BEAKER) (test code = cells 807813) GRAM STAIN RESULT 1+ gram negative (BEAKER) (test code = rods 449479) GRAM STAIN RESULT <1+ gram (BEAKER) (test code = positive cocci 761837) in pairs 2+ Normal respiratory anjel [id number] 16:06:00 Test Item Value Reference Range Interpretation Comments Sodium (test code = 137 meq/L 527-228 7267-2) NETTIE (test code = NETTIE) Legal Billing Coordinator ID - ADMIN Lab Interpretation (test Normal code = 15755-2) [facility] 16:06:00 Test Item Value Reference Range Interpretation Comments SODIUM (BEAKER) (test code = 381) 137 meq/L 136-145 Legal Billing Coordinator ID - ADMINPOCT-GLUCOSE [id number] 11:46:00 Test Item Value Reference Range Interpretation Comments POC-GLUCOSE METER 113 mg/dL 70-110 H : TESTED A T [facility] 6720 (BEAKER) (test code = [facility], 1538) 29627: Legal Billing Coordinator/Techni marielos ID = [id number] for FRANSISCO ESCALANTE POCT-GLUCOSE [id number] 05:56:00 Test Item Value Reference Range Interpretation Comments POC-GLUCOSE METER 96 mg/dL 70-110 : TESTED A T [facility] 6720 (BEAKER) (test code = [facility], 1538) 27424: Legal Billing Coordinator/Techni marielos ID = [id number] for BOLA ESTRADA BASIC METABOLIC [id number] 05:32:00 Test Item Value Reference Range Interpretation [...] S NOT APPLICABLE FOR DIALYSIS PATIEN TS. Legal Billing Coordinator ID - [id number] 05:32:00 Test Item Value Reference Range Interpretation Comments MAGNESIUM (BEAKER) (test code = 2.2 mg/dL 1.6-2.6 627) Legal Billing Coordinator ID - [id number] 05:32:00 Test Item Value Reference Range Interpretation Comments PHOSPHORUS (BEAKER) (test code = 3.5 mg/dL 2.3-4.7 604) Legal Billing Coordinator ID - DBCBC W/PLT COUNT & AUTO [id number] 05:06:00 Test Item Value Reference Range Interpretation [...] PERCENT (BEAKER) (test code = 2801) POCT-GLUCOSE [id number] 00:03:00 Test Item Value Reference Range Interpretation Comments POC-GLUCOSE METER 90 mg/dL 70-110 : TESTED A T [facility] 6720 (BEAKER) (test code = [facility], 1538) 12483: Legal Billing Coordinator/Techni marielos ID = [id number] for BOLA ESTRADA POCT-GLUCOSE [id number] 16:51:00 Test Item Value Reference Range Interpretation Comments POC-GLUCOSE METER 101 mg/dL 70-110 : TESTED A T [facility] 6720 (BEAKER) (test code = [facility], 1538) 60189: Legal Billing Coordinator/Techni marielos ID = [id number] for An derson, Colleen Type and screen, [id number] 16:09:00 Test Item Value Reference Range Interpretation Comments ABO/RH AUTOMATED (BEAKER) (test B POSITIVE code = 2260) Ab Scrn (test code = 890-4) NEGATIVE [facility]2021-08-22 15:25:00 Test Item Value Reference Range Interpretation Comments SODIUM (BEAKER) (test code = 381) 137 meq/L 136-145 Legal Billing Coordinator ID - DBPOCT-GLUCOSE [id number] 12:21:00 Test Item Value Reference Range Interpretation Comments POC-GLUCOSE METER 107 mg/dL 70-110 : TESTED A T [facility] 6720 (BEAKER) (test code = [facility], 1538) 03939: Legal Billing Coordinator/Techni marielos ID = [id number] for An derson, Colleen POCT-GLUCOSE [id number] 05:31:00 Test Item Value Reference Range Interpretation Comments POC-GLUCOSE METER 103 mg/dL 70-110 : TESTED A T [facility] 6720 (BEAKER) (test code = [facility], 1538) 64741: Legal Billing Coordinator/Techni marielos ID = [id number] for BOLA GARVIN BASIC METABOLIC [id number] 05:20:00 Test Item Value Reference Range Interpretation [...] S NOT APPLICABLE FOR DIALYSIS PATIEN TS. Legal Billing Coordinator ID - CHRISTINA [id number] 05:20:00 Test Item Value Reference Range Interpretation Comments MAGNESIUM (BEAKER) (test code = 2.1 mg/dL 1.6-2.6 627) Legal Billing Coordinator ID - CHRISTINA HOEVJJZLPKU8131-86-65 05:20:00 Test Item Value Reference Range Interpretation Comments PHOSPHORUS (BEAKER) (test code = 2.9 mg/dL 2.3-4.7 604) Legal Billing Coordinator ID - CHRISTINA WCBC W/PLT COUNT & AUTO [id number] 04:44:00 Test Item Value Reference Range Interpretation [...] PERCENT (BEAKER) (test code = 2801) POCT-GLUCOSE [id number] 23:57:00 Test Item Value Reference Range Interpretation Comments POC-GLUCOSE METER 125 mg/dL 70-110 H : TESTED A T [facility] 6720 (BEAKER) (test code = [facility], 1538) 58192: Legal Billing Coordinator/Techni marielos ID = [id number] for BOLA GARVIN POCT-GLUCOSE [id number] 17:26:00 Test Item Value Reference Range Interpretation Comments POC-GLUCOSE METER 134 mg/dL 70-110 H : TESTED A T [facility] 6720 (BEAKER) (test code = JOAN Haddad [facility], 1538) 51147: Legal Billing Coordinator/Techni marielos ID = [id number] for An Colleen diaz Blood Culture - Routine (Left Venipuncture)2021-01-12 16:00:00 Test Item Value Reference Range Interpretation Comments Result (test code = No growth in 5 days 6463-4) [facility] DiegoBLO[facility] [id number] 16:00:00 Test Item Value Reference Range Interpretation Comments CULTURE (BEAKER) (test No growth in 5 days code = 1095) BLOOD [id number] 16:00:00 Test Item Value Reference Range Interpretation Comments CULTURE (BEAKER) (test No growth in 5 days code = 1095) Vancomycin level, [id number] 14:11:00 Test Item Value Reference Range Interpretation Comments Vancomycin Tr (test code = 19.6 ug/mL 10-20 4092-3) NETTIE (test code = NETTIE) Legal Billing Coordinator ID - BEN M Lab Interpretation (test Normal code = 16415-7) [facility] DiegoVANCOMYCIN LEVEL, [id number] 14:11:00 Test Item Value Reference Range Interpretation Comments VANCOMYCIN TROUGH (BEAKER) (test 19.6 ug/mL 10.0-20.0 code = 522) Legal Billing Coordinator ID - BEN [id number] 14:07:00 Test Item Value Reference Range Interpretation Comments SODIUM (BEAKER) (test code = 381) 144 meq/L 136-145 Legal Billing Coordinator ID - BEN MPOCT-GLUCOSE [id number] 12:10:00 Test Item Value Reference Range Interpretation Comments POC-GLUCOSE METER 121 mg/dL 70-110 H : TESTED A T [facility] 6720 (BEAKER) (test code = JOAN Haddad [facility], 1538) 83553: Legal Billing Coordinator/Techni marielos ID = [id number] for An Colleen diaz CBC W/PLT COUNT & AUTO [id number] 10:58:00 Test Item Value Reference Range Interpretation [...] CONCENTRATION Adequate (CELLAVISION)(BEAKER) (test code = 3438) Legal Billing Coordinator ID - Anamaria Engel comments: Slide comments:POCT-GLUCOSE METER 2021-01-12 08:26:00 Test Item Value Reference Range Interpretation Comments POC-GLUCOSE METER 123 mg/dL 70-110 H : TESTED Alanna T [facility] 6720 (BEAKER) (test code = [facility], 1538) 17502: Legal Billing Coordinator/Techni marielos ID = [id number] for An Colleen diaz BASIC METABOLIC [id number] 06:40:00 Test Item Value Reference Range Interpretation [...] S NOT APPLICABLE FOR DIALYSIS PATIEN TS. Legal Billing Coordinator ID - BEN [id number] 06:40:00 Test Item Value Reference Range Interpretation Comments MAGNESIUM (BEAKER) (test code = 2.1 mg/dL 1.6-2.6 627) Legal Billing Coordinator ID - BEN [id number] 06:40:00 Test Item Value Reference Range Interpretation Comments PHOSPHORUS (BEAKER) (test code = 3.0 mg/dL 2.3-4.7 604) Legal Billing Coordinator ID - BEN MPOCT-GLUCOSE [id number] 06:08:00 Test Item Value Reference Range Interpretation Comments POC-GLUCOSE METER 133 mg/dL 70-110 H : TESTED A T [facility] 6720 (BEAKER) (test code = [facility], 153) 63800: Legal Billing Coordinator/Techni marielos ID = [id number] for DE NNIS, PREETI POCT-GLUCOSE [id number] 23:53:00 Test Item Value Reference Range Interpretation Comments POC-GLUCOSE METER 110 mg/dL 70-110 : TESTED A T [facility] 6720 (BEAKER) (test code = [facility], 153) 65373: Legal Billing Coordinator/Techni marielos ID = [id number] for DE NNIS, PREETI ANG, INSERTION G TUBE, W/ [id number] 17:48:00 [facility] : 1945 Sex: FFINALREPORT History: Intracranial hemorrhage, need for supplemental nutrition. [...] tube could not be identified secondary to gas- filled colon and splenic flexure overlying the gastric lumen. Therefore, the procedure was aborted. There wereno immediate complications and the patient was discharged from the department in stable condition. FINDINGS: Spot images of the abdomen obtained following gastric insufflation demonstrate a gas and stool filled loop of colon, near the splenic flexure overlying the gastric lumen preventing safe placement of a percutaneous gastrostomy tube. IMPRESSION: 1. Unable to safely place percutaneous gastrostomytube secondary to colon overlying access window. Therefore, the procedure was canceled. Suggest surgical consultation possible surgical tube placement if clinically indicated. Total fluoroscopy time: 1.4 minutes. Estimated total patient dose reported as (Ka,r): 30 mGy Signed: Bessie Lucas MDRephiwot Verified Date/Time: 01/11/2021 17:48:55 Reading Location: [place] [address] Angio Body Reading Room IR G-Tube Insertion [...] condition. FINDINGS: Spot images of the abdomen obtainedfollowing gastric insufflation demonstrate a gas and stool [...] as (Ka,r): 30 mGy Signed: Bessie Lucas Verified Date/Time: 01/11/2021 17:48:55 Reading Location: [place] [address] Angio Body Reading Room [facility]PO[facility]GLU[facility] [id number] 12:29:00 Test Item Value Reference Range Interpretation Comments POC-GLUCOSE METER 106 mg/dL 70-110 : TESTED A T [facility] 6720 (BEAKER) (test code [facility], = 1538) 77898: Legal Billing Coordinator/Techni marielos ID = [id number] for TSEG REJI, LINDAA [id number] 10:43:00 Test Item Value Reference Interpretation Comments Range Protime (test code = 13.6 See_Comment [Autom ated 5902-2) message] The system which generated this result transmitted reference range : 11.9 - 14.2 seconds. The reference range was not used to interpret this result as normal/abnormal . INR (test code = 1.06 See_Comment [Automated 6921-6) message] The system which generated this result transmitted reference range : <=5.90. The reference range was not used to interpret this result as normal/abnormal . PTT (test code = 28.5 See_Comment [Automated 37121-6) message] The system which generated this result [...] valves. Lab Interpretation Normal (test code = 08611-6) [facility] Diego[facility]/[id number] 10:43:00 Test Item Value Reference Range Interpretation [...] mechanical heart valves.CBC W/PLT COUNT & AUTO [id number] 07:27:00 Test Item Value Reference Range Interpretation [...] CONCENTRATION Adequate (CELLAVISION)(BEAKER) (test code = 3438) Legal Billing Coordinator ID - Margarita OverholtUser comments: Slide comments:POCT-GLUCOSE METER 2021-01-11 06:34:00 Test Item Value Reference Range Interpretation Comments POC-GLUCOSE METER 132 mg/dL 70-110 H : TESTED A T [facility] 6720 (BEAKER) (test code = [place]AN [place], 1538) [address]: Legal Billing Coordinator/Techni marielos ID = [id number] for DE ANTONYIS, PREETI BASIC METABOLIC [id number] 06:32:00 Test Item Value Reference Range Interpretation [...] S NOT APPLICABLE FOR DIALYSIS PATIEN TS. Legal Billing Coordinator ID - PIFAVIOLA [id number] 06:32:00 Test Item Value Reference Range Interpretation Comments MAGNESIUM (BEAKER) (test code = 2.5 mg/dL 1.6-2.6 627) Legal Billing Coordinator ID - EYAD [id number] 06:32:00 Test Item Value Reference Range Interpretation Comments PHOSPHORUS (BEAKER) (test code = 2.5 mg/dL 2.3-4.7 604) Legal Billing Coordinator ID - EYAD [id number] 06:32:00 Test Item Value Reference Range Interpretation Comments SODIUM (BEAKER) (test code = 381) 151 meq/L 136-145 H POCT-GLUCOSE [id number] 00:17:00 Test Item Value Reference Range Interpretation Comments POC-GLUCOSE METER 120 mg/dL 70-110 H : TESTED A T [facility] 6720 (BEAKER) (test code = JOAN [address], 1538) [address]: Legal Billing Coordinator/Techni marielos ID = [id number] for DE NNIS, PREETI Clostridium difficile GDH [id number] 13:14:00 Test Item Value Reference Range Interpretation Comments C. Difficle Toxin Negative Negative (test code = 3226174830) C. Difficile GDH Negative Negative No indicati on of Antigen (test code = Clostri dium 3246819057) difficile infection and n o colonization. Discontinue enteric isolati on and therapy. NETTIE (test code = Testing performed NETTIE) by [employer] Rapid Cassette Assay. For GDH, published sensitivity of the assay is 98.7% compared to cytotoxicity testing. For Toxin AB, published sensitivity is 87.8% and specificity 99.4% compared to cytotoxicity testing.Verificati on of kit performance was done by the [facility] Microbiology Lab prior to clinical use. Lab Interpretation Normal (test code = 65339-0) [facility] DiegoC. DIFFICILE G[facility] [id number] 13:14:00 Test Item Value Reference Range Interpretation Comments CDT TOXIN (test code Negative Negative = 9425001957) CDT GDH ANTIGEN (test Negative Negative No ind ication of code = 1446478539) Clostridi um difficile infection and n o colonization. Discontinue ent barry isolation and t herapy. Testing performed by [employer] Rapid Cassette Assay. For GDH, published sensitivity of the assay is 98.7% compared to cytotoxicity testing. For Toxin AB, published sensitivity is 87.8% and specificity 99.4% compared to cytotoxicity testing.Verification of kit performance was done by the [facility] MicrobiologyLab prior to clinical use.BASIC METABOLIC [id number] 09:56:00 Test Item Value Reference Range Interpretation [...] S NOT APPLICABLE FOR DIALYSIS PATIEN TS. Legal Billing Coordinator ID - [id number] 09:56:00 Test Item Value Reference Range Interpretation Comments MAGNESIUM (BEAKER) (test code = 2.3 mg/dL 1.6-2.6 627) Legal Billing Coordinator ID - [id number] 09:56:00 Test Item Value Reference Range Interpretation Comments PHOSPHORUS (BEAKER) (test code = 2.7 mg/dL 2.3-4.7 604) Legal Billing Coordinator ID - ABNERVANCOMYCIN LEVEL, [id number] 09:05:00 Test Item Value Reference Range Interpretation Comments VANCOMYCIN TROUGH (BEAKER) (test 26.2 ug/mL 10.0-20.0 H code = 522) Legal Billing Coordinator ID - EMERSONCBC W/PLT COUNT & AUTO [id number] 08:45:00 Test Item Value Reference Range Interpretation [...] PERCENT (BEAKER) (test code = 2801) POCT-GLUCOSE [id number] 06:14:00 Test Item Value Reference Range Interpretation Comments POC-GLUCOSE METER 128 mg/dL 70-110 H : Notified RN/MD: (NAZARIO) (test code = TESTED AT [place] [address] 1538) [facility], [address]: Legal Billing Coordinator/Techni marielos ID = [id number] for DO VE, CHEKARA POCT-GLUCOSE [id number] 23:35:00 Test Item Value Reference Range Interpretation Comments POC-GLUCOSE METER 120 mg/dL 70-110 H : Notified RN/MD: (NAZARIO) (test code = TESTED AT [place] [address] 1538) [facility], [address]: Legal Billing Coordinator/Techni marielos ID = [id number] for DO VE, CHEKARA SARS-COV2/RT-PCR ([facility])2021-01-09 23:13:00 Test Item Value Reference Range Interpretation Comments SARS-COV2/RT-PCR (test Negative Not Detected, Negative, code = 3368827) See external report for linked test SARS-COV-2 PERFORMING LAB [facility] RIANNA (test code = 8143643) Negative result for this test determines that [...] justifying the authorization of the emergency use ofin vitro diagnostic tests for detection and/or diagnosis of COVID-19 is terminated under Section 564(b)(2) of the Act or the EUA is revoked under Section 564(g) of the Act.Fact Sheet for Healthcare Prov iders:https://www.GetBulb/sites/default/files/product/documents/Fact_Sheet_HC _Dwklyxgsj_Nsbx_CEXS-OyD-8.pdfFact Sheet for Healthcare Patients:https://www.GetBulb/sites/default/files/product/docume nts/Txir_Kesgo_Oirvweqo_Krmj_PBQM-WyH-7.pdfPerforming Laboratory:[facility], [place] [id number] 16:18:00 Test Item Value Reference Range Interpretation Comments SODIUM (BEAKER) (test code = 381) 149 meq/L 136-145 H Legal Billing Coordinator ID - BSPOCT-GLUCOSE [id number] 16:10:00 Test Item Value Reference Range Interpretation Comments POC-GLUCOSE METER 95 mg/dL 70-110 : TESTED A T [facility] 6720 (BEAKER) (test code = JOAN Haddad [facility], 1538) [address]: Legal Billing Coordinator/Techni marielos ID = [id number] for CERV ANTES, MICHELLE BASIC METABOLIC [id number] 03:37:00 Test Item Value Reference Range Interpretation [...] S NOT APPLICABLE FOR DIALYSIS PATIEN TS. Legal Billing Coordinator ID - CHRISTINA [id number] 03:37:00 Test Item Value Reference Range Interpretation Comments MAGNESIUM (BEAKER) (test code = 2.1 mg/dL 1.6-2.6 627) Legal Billing Coordinator ID - CHRISTINA [id number] 03:37:00 Test Item Value Reference Range Interpretation Comments PHOSPHORUS (BEAKER) (test code = 2.4 mg/dL 2.3-4.7 604) Legal Billing Coordinator ID Aida VASQUEZ WCBC W/PLT COUNT & AUTO [id number] 03:20:00 Test Item Value Reference Range Interpretation [...] GRANULOCYTES-RELATIVE PERCENT (BEAKER) (test code = 2801) [id number] 17:53:00 Test Item Value Reference Range Interpretation Comments SODIUM (BEAKER) (test code = 381) 145 meq/L 136-145 Legal Billing Coordinator ID - corby eRAD, CHEST, 1 VIEW, NON [id number] 14:24:00Reason for exam:->ptxShould this be performed at the bedside?->Yes [facility] 1945 Sex: FFINALREPORT CLINICAL HISTORY: ptx TECHNIQUE: 1 view of the chest. COMPARISON: 01/07/2021 IMPRESSION: A feeding tube again extends below the diaphragm. As before, there is no evidence forpneumothorax. Left basilar atelectasis is again seen. There is no significant appearing pleural fluid or cardiomegaly. Signed: Griselda Mcconnell MDReport Verified Date/Time: 01/08/2021 14:24:27 Reading Location: [facility] Radiology Reading Room URINALYSIS W/ REFLEX URINE [id number] 13:12:00 Test Item Value Reference Range Interpretation [...] = 1521) SOURCE(BEAKER) (test code = 2795) Legal Billing Coordinator ID - [auto]Legal Billing Coordinator ID - tech(CELLAVISION MANUAL DIFF)2021-01-08 09:19:00 Test [...] CONCENTRATION Adequate (CELLAVISION)(BEAKER) (test code = 3438) Legal Billing Coordinator ID - Louise Ramires comments: Slide comments:Transcranial Doppler Complete (TCD)2021-01-08 08:52:55Barry Funes MD 01/09/2021 1[facility] Report Date: 01/07/21 Referring physician: MD Juan Indication: aSAH Maximal estimated mean blood flowvelocities (cm / sec): R EC ICA 43 L EC ICA 28 R Ophthalmic L Ophthalmic R MCA 42 R PABLO 18 R ICA R HOME LIGHTING ADVISER 31 L MCA 47 L PABLO 42 L ICA L HOME LIGHTING ADVISER 31 R vertebral 27 L vertebral 44 Basilar 30 [place] (R MCA:R ECICA) 0.97 [place] (L MCA:L ECICA) 1.85 Post bleed day #: 11 Velocity Range Thompson Elevated velocity = 90 - 119 cm/sec Mild vasospasm = 120 - 159 cm/sec Moderate vasospasm = 160 - 199 cm/sec Severe vasospasm = ? 200 cm/sec Interpretation:Velocities within normal ranges. No concern for vasospasm.Clinical Correlation is recommended. I interpreted procedure Chele Farah Professor of NeurologySc[facility] Medical Center W/PLT COUNT & AUTO [id number] 03:57:00 Test Item Value Reference Range Interpretation [...] (BEAKER) (test code = 413) BASIC METABOLIC [id number] 03:43:00 Test Item Value Reference Range Interpretation [...] S NOT APPLICABLE FOR DIALYSIS PATIEN TS. Legal Billing Coordinator ID - BEN [id number] 03:43:00 Test Item Value Reference Range Interpretation Comments MAGNESIUM (BEAKER) (test code = 2.3 mg/dL 1.6-2.6 627) Legal Billing Coordinator ID - BEN [id number] 03:43:00 Test Item Value Reference Range Interpretation Comments PHOSPHORUS (BEAKER) (test code = 3.3 mg/dL 2.3-4.7 604) Legal Billing Coordinator ID - BEN [id number] 21:42:00 Test Item Value Reference Range Interpretation Comments Procalcitonin (test code = 0.32 ng/mL <0.05 H 34647-8) NETTIE (test code = NETTIE) SEPSIS RISK (ng/mL)Low: 0.05-0.50Intermedia te: 0.51-2.00High: >=2.01 Lab Interpretation (test Abnormal code = 58016-6) [facility] [id number] 21:42:00 Test Item Value Reference Range Interpretation Comments PROCALCITONIN (BEAKER) (test code 0.32 ng/mL <0.05 H = 3036) SEPSIS RISK (ng/mL)Low: 0.05-0.50Intermediate: 0.51-2.00High: >=2.01MAGNESIUM 2021-01-07 15:43:00 Test Item Value Reference Range Interpretation Comments MAGNESIUM (BEAKER) (test code = 2.1 mg/dL 1.6-2.6 627) Legal Billing Coordinator ID - [id number] 15:43:00 Test Item Value Reference Range Interpretation Comments PHOSPHORUS (BEAKER) (test code = 3.0 mg/dL 2.3-4.7 604) Legal Billing Coordinator ID - CORAComprehensive metabolic [id number] 14:31:00 Test Item Value Reference Range Interpretation Comments Protein, Total (test 6.3 See_Comment [Autom ated code = 2885-2) message] The system which generated this result transmit alexandre reference range : 6.0 - 8.3 gm/dL . The reference range was not u sed to interpret th is result as normal/abnormal . Albumin (test code = 3.5 g/dL 3.5-5 67393-6) Alkaline Phosphatase 292 U/L 40-150 H (test code = 6768-6) Total Bilirubin (test 0.4 mg/dL 0.2-1.2 code = 1974-2) Sodium (test code = 143 meq/L 829-681 8570-2) Potassium (test code 3.4 meq/L 3.5-5.1 L = 2823-3) Chloride (test code = 108 meq/L 98-107 H 5-0) CO2 (test code = 24 meq/L 22-29 2027-9) BUN (test code = 24 mg/dL 7-21 H 3094-0) Creatinine (test code 0.62 mg/dL 0.57-1.25 = 2160-0) Glucose (test code = 131 mg/dL 70-105 H 2345-7) Calcium (test code = 8.0 mg/dL 8.4-10.2 L 95980-5) AST (test code = 71 U/L 5-34 H 1920-8) ALT (test code = 72 U/L 6-55 H 1742-6) EGFR (test code = 94 mL/min/1.73 [place] [address]-2) NOT ACCURATE CREATININE CLEARANCE IN PREDICTING GLOMERULAR FILTRATION RATE . ESTIMATED GFR I S NOT APPLICABLE FOR DIALYSIS PATIEN NETTIE (test code = NETTIE) Legal Billing Coordinator ID - CORA Lab Interpretation Abnormal (test code = 59642-8) [facility] DiegoHepatic function [id number] 14:31:00 Test Item Value Reference Range Interpretation Comments Protein, Total (test 6.3 See_Comment [Autom ated code = 2885-2) message] The system which generated this result transmit alexandre reference range : 6.0 - 8.3 gm/dL . The reference range was not u sed to interpret th is result as normal/abnormal . Albumin (test code = 3.5 g/dL 3.5-5 68187-2) Total Bilirubin (test 0.4 mg/dL 0.2-1.2 code = 1975-2) Bilirubin, Direct 0.2 mg/dL 0.1-0.5 (test code = 1968-7) Alkaline Phosphatase 292 U/L 40-150 H (test code = 6768-6) AST (test code = 71 U/L 5-34 H 1920-8) ALT (test code = 72 U/L 6-55 H 1742-6) NETTIE (test code = NETTIE) Legal Billing Coordinator ID - MAY Lab Interpretation Abnormal (test code = 33586-2) [facility] DiegoCOMPREHENSIVE METABOLIC [id number] 14:31:00 Test Item Value Reference Range Interpretation [...] S NOT APPLICABLE FOR DIALYSIS PATIEN TS. Legal Billing Coordinator ID - CORAHEPATIC FUNCTION [id number] 14:31:00 Test Item Value Reference Range Interpretation [...] code = 72 U/L 6-55 H 347) Legal Billing Coordinator ID - CORABlood gas, [id number] 13:59:00 Test Item Value Reference Range Interpretation Comments pH, Arterial (test code 7.46 7.35-7.45 H = 2744-1) pCO2, Arterial (test 37 See_Comment [Autom ated message] code = 2019-8) The system [employer] generated this result transmit alexandre reference range : 35 - 45 mm Hg. The reference range was not used to interpret this result as normal/abnormal . pO2, Arterial (test 91 See_Comment H [Automa alexandre message] code = 2703-7) The system [facility] generated this result transmit alexandre reference range [...] 21 Lab Interpretation Abnormal (test code = 11789-0) [facility] DiegoBLOOD GAS, [id number] 13:59:00 Test Item Value Reference Range Interpretation [...] code = 1819) 21.0 CT, BRAIN, WITHOUT [id number] 13:54:00Unlisted Reason for Exam - Click Yes and Enter Reason Below->YesUnlisted Reason for Exam->SAH worsen exam [facility] : 1945 Sex: FFINALREPORT CT, BRAIN, WITHOUT CONTRAST INDICATION: Unlisted Reason for ExamSAH worsen exam TECHNIQUE: Noncontrast axial imaging was obtained from the vertex to the skull base. Axial images were reconstructed using a bone algorithm. DOSE REDUCTION: Dose modulation, iterative reconstruction, and/or weight-based adjustment of the mA/kV was utilized to reduce the radiation dose to as lowas reasonably achievable. COMPARISON: CT 01/06/2021 FINDINGS: Intracranial: [...] periventricular and subcortical white matter are a nonspecificfinding commonly attributed to chronic small vessel ischemic disease. Osseous structures: Right pterional craniotomy without offset. No fracture. No suspicious lesion. Paranasal sinuses and mastoid aircells: No evidence of sinusitis. Mastoids are clear. Orbital contents: Globes are intact. IMPRESSION: No significant interval change in multicompartmental hemorrhage, edema in the right cerebral hemisphere, and mild leftward midline shift. Signed: Opal Carrillo MDReport Verified Date/Time: 113:54:14 CT brain without IV contrast 2021-01-07 13:54:00Interface, External Ris In - 01/07/2021 1:[address], BRAIN, WITHOUT CONTRAST INDICATION: Unlisted Reason for ExamSAH worsen exam TECHNIQUE: Noncontrast axial imagingwas obtained from the vertex to the skull [...] frontal and temporal lobes. There is an unchanged4 mm leftward midline shift. No hydrocephalus. Generalized cerebral atrophy with ex vacuo dilatationof the ventricular system proportionate to sulci. Scattered [...] mild leftward midline shift. 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 She was taken at that time for craniotomy and clipping of right middle cerebral artery aneurysm andevacuation of hematoma. She has been closely monitored [...] was advanced through the right subclavian artery tothe relevant vessels, back-bled, and flushed in the usual fashion. Using coaxial technique, and withthe aid of the roadmapping, digital fluoroscopy, and careful guidewire manipulation the below arteries were catheterized. Upon each successive selective catheterization, digital subtraction angiographyusing the appropriate rate and volume of contrast in multiple projections was performed. In the right internal carotid artery we infused 20 mg of verapamil over 20 minutes. Post infusion angiography demonstrated improvement in degree of vasospasm. 3-dimensional angiogram was performed and processed stephanie independent workstation. These images were reviewed by [...] branches are widely patent without stenosis. RIGHT COMMON CAROTID ARTERY (DSA - AP, LATERAL - CERVICAL) Under fluoroscopic guidance, the catheter was advanced into the right common carotid artery. PA and lateral projections demonstrate antegrade flow into the right common and internal carotid arteries and the [...] anterior cerebral artery. There is moderate vasospasm involvingthe superior and inferior M2 divisions of the middle cerebral artery. This was treated as above with20 mg of intra-arterial verapamil over 20 minutes. Post infusion angiography demonstrated improvement in caliber of the vessels. The previously treated right middle cerebral artery aneurysm is again noted to be clipped ligated. There is a residual neck of the aneurysm in the anterior portion measuring1.58 mm x 1.52 mm x 0.92 mm [...] right vertebral artery. PA and lateral projections ofthe cranium demonstrate antegrade flow into the right vertebral and basilar arteries. The right vertebral artery is patent without significant stenotic lesion. There is appearance of fibromuscular dyspl alicia in the right V3 segment of the vertebral artery. The right posterior inferior cerebellar arteryis normal in course and caliber. The basilar [...] carotid artery, middle and anterior cerebral artery. Noaneurysms, arteriovenous shunting, dissection, occlusion is appreciated. No vasospasm noted in the left anterior cerebral artery or middle cerebral artery regions. Venous phase images are balanced overthe convexity. PA and lateral projections demonstrate antegrade flow into the external carotid segments of the carotid artery. The visualized portions of the left external carotid artery and its branches are normal in course and caliber. There is no evidence of arteriovenous shunting. The venous phaseis normal. Vessels catheterized:1. 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 She was taken at that time for craniotomy and clipping of right middle cerebral artery aneurysm andevacuation of hematoma. She has been closely monitored [...] was advanced through the right subclavian artery tothe relevant vessels, back-bled, and flushed in the usual fashion. Using coaxial technique, and withthe aid of the roadmapping, digital fluoroscopy, and careful guidewire manipulation the below arteries were catheterized. Upon each successive selective catheterization, digital subtraction angiographyusing the appropriate rate and volume of contrast in multiple projections was performed. In the right internal carotid artery we infused 20 mg of verapamil over 20 minutes. Post infusion angiography demonstrated improvement in degree of vasospasm. 3-dimensional angiogram was performed and processed stephanie independent workstation. These images were reviewed by [...] branches are widely patent without stenosis. RIGHT COMMON CAROTID ARTERY (DSA - AP, LATERAL - CERVICAL) Under fluoroscopic guidance, the catheter was advanced into the right common carotid artery. PA and lateral projections demonstrate antegrade flow into the right common and internal carotid arteries and the [...] anterior cerebral artery. There is moderate vasospasm involvingthe superior and inferior M2 divisions of the middle cerebral artery. This was treated as above with20 mg of intra-arterial verapamil over 20 minutes. Post infusion angiography demonstrated improvement in caliber of the vessels. The previously treated right middle cerebral artery aneurysm is again noted to be clipped ligated. There is a residual neck of the aneurysm in the anterior portion measuring1.58 mm x 1.52 mm x 0.92 mm [...] right vertebral artery. PA and lateral projections ofthe cranium demonstrate antegrade flow into the right vertebral and basilar arteries. The right vertebral artery is patent without significant stenotic lesion. There is appearance of fibromuscular dyspl alicia in the right V3 segment of the vertebral artery. The right posterior inferior cerebellar arteryis normal in course and caliber. The basilar [...] carotid artery, middle and anterior cerebral artery. Noaneurysms, arteriovenous shunting, dissection, occlusion is appreciated. No vasospasm noted in the left anterior cerebral artery or middle cerebral artery regions. Venous phase images are balanced overthe convexity. PA and lateral projections demonstrate antegrade flow into the external carotid segments of the carotid artery. The visualized portions of the left external carotid artery and its branches are normal in course and caliber. There is no evidence of arteriovenous shunting. The venous phaseis normal. Vessels catheterized:1. 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 She has been closely monitored in the intensive care unit with aggressive supportive care. She presents today as plannedfor diagnostic angiography to assess for vasospasm with possible treatment if present. CONSENT: The risks and benefits of the procedure were discussed with the patient and his/her family. These includebut are not limited to infection, bleeding, stroke, , vessel injury, groin hematoma, retroperitoneal hematoma and need for additional treatment and/or therapy. The questions were answered. They und erstood and wished to proceed. PROCEDURE IN DETAIL: A time-out was performed. Both groins and wristswere prepped in the usual sterile fashion using Chloraprep, and sterilely draped. A single wall puncture of the right radial artery was performed using a micropuncture set and dilator and a 5-Fr short s ct was inserted into the right radial artery. [...] branches are widely patent without stenosis. RIGHT COMMON CAROTID ARTERY (DSA - AP, LATERAL - CERVICAL) Under fluoroscopic guidance, the catheter was advanced intothe right common carotid artery. PA and lateral projections demonstrate antegrade flow into the right common and internal carotid arteries and the [...] 20 mg of intra-arterial verapamil over 20 mi nutes. Post infusion angiography demonstrated improvement in caliber [...] carotid cave measuring 3.49 mm x 4.79 mm(height x width) with a 4.05 mm neck. Venous phase images are balanced over the convexity. RIGHT VERTEBRAL ARTERY (DSA - AP, LATERAL - HEAD) Under fluoroscopic guidance, the catheter was advanced into the right vertebral artery. PA and lateral projections of the cranium demonstrate antegrade flow intothe right vertebral and basilar arteries. The right [...] No stenosis or vasospasm is observed. No significantabnormalities are seen in the capillary and venous [...] Impression: 1. Moderate vasospasm in the superior andinferior M2 divisions of the right middle cerebral [...] artery clinoid segment aneurysm measuring 3.49 mm x4.79 mm (height x width) with a 4.05 mm neck No immediate technical or clinical complications. 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 She has been closely monitored in the intensive care unit with aggressive supportive care. She presents today as plannedfor diagnostic angiography to assess for vasospasm with possible treatment if present. CONSENT: The risks and benefits of the procedure were discussed with the patient and his/her family. These includebut are not limited to infection, bleeding, stroke, , vessel injury, groin hematoma, retroperitoneal hematoma and need for additional treatment and/or therapy. The questions were answered. They understood and wished to proceed. PROCEDURE IN DETAIL: A time-out was performed. Both groins and wristswere prepped in the usual sterile fashion using [...] condition. Endovascular Intervention: Diagnostic cerebral angiogram and intra-ar terial infusion of verapamil FINDINGS:RIGHT RADIAL ARTERY (DSA - PA - ELBOW) The visualized brachial, radial, and ulnar arteries and their branches are widely patent without stenosis. RIGHT COMMON CAROTID ARTERY (DSA - AP, LATERAL - CERVICAL) Under fluoroscopic guidance, the catheter was advanced intothe right common carotid artery. PA and lateral projections demonstrate antegrade flow into the right common and internal carotid arteries and the [...] 20 mg of intra-arterial verapamil over 20 mi nutes. Post infusion angiography demonstrated improvement in caliber [...] carotid cave measuring 3.49 mm x 4.79 mm(height x width) with a 4.05 mm neck. Venous phase images are balanced over the convexity. RIGHT VERTEBRAL ARTERY (DSA - AP, LATERAL - HEAD) Under fluoroscopic guidance, the catheter was advanced into the right vertebral artery. PA and lateral projections of the cranium demonstrate antegrade flow intothe right vertebral and basilar arteries. The right [...] No stenosis or vasospasm is observed. No significantabnormalities are seen in the capillary and venous [...] Impression: 1. Moderate vasospasm in the superior andinferior M2 divisions of the right middle cerebral [...] artery clinoid segment aneurysm measuring 3.49 mm x4.79 mm (height x width) with a 4.05 mm neck No immediate technical or clinical complications. Signed: Ava Whitt MDReport Verified Date/Time: 01/07/2021 13:27:18 Reading Location: [facility] Y02 NeuroAngio Reading Room [facility] Diego[facility], CHEST, 1 VIEW, NON [id number] 12:33:00Reason for exam:->leukocytosisShould this be performed at the bedside?->Yes [facility] : 1945 Sex: FFINALREPORT CLINICAL HISTORY: leukocytosis TECHNIQUE: 1 view of the chest. COMPARISON: 01/04/2021 IMPRESSION: The ETT has been removed. Feeding tube remains. There is patchy left lung base airspace opacity with a trace left effusion. The right lung remains well-aerated. The cardiomediastinal silhouette is magnified by technique. Signed: Griselda Mcconnell MDReport Verified Date/Time: 01/07/2021 12:33:30 Reading Location: [facility] Radiology Reading Room EEG AWAKE AND [id number] 12:32:00For STAT EEG- after 5 PM weekdays, weekends and holidays, page the on-call EEG TechReason for exam:->c/f subclinical sz [facility] : 1945 Sex: FAddendum BeginsDate of EEG and EEG report was 01/07/2021, no 12/24/2020. Addendum EndsVIDEO EEG report for [facility] NAME: Sonu Arellano DATE OF EE12/24/2020 DATE OF REPORT: 12/24/2020 ACC: [id number] Start time: 12/24/2020@08:33 Stop time: 12/24/2020@08:54 ICD-10: R41.82, R56.9 CPT Code: 77252 HISTORY: 75yo female with PMH of hypertension, presenting with ICH and SAH 2/2 R MCA aneurysm. now s/p R pteronial craniotomy for R MCA bifurcation aneurysm and hematoma evacuation on 12/28 MEDICATIONS THAT COULD AFFECT THE EEG: Keppra, acetaminophen, dextrose, lovenox, apresoline, insulin, labetalol, loperamide, provigil, micardipine, nimodipine TECHNICAL SUMMARY: This is a [facility] digital Video-EEG recorded with 32 input channels [...] driving was not observed. There were no photoparoxysmal [...] additional EEG recordings. Cirilo Mays M.D., HARPREET, OZZIEN, LARRY Professor of Neurology [facility] [employer] [facility] Director, [facility] Epilepsy Center Head, [facility] Neurophysiology Lab Electronically signed by: CIRILO MAYS on 112:32 PMEEG AWAKE AND [id number] 12:29:00Interface, External Ris In - 01/07/2021 12:32 PM CDTAddendum BeginsDate of EEG and EEG report was 01/07/2021, no 12/24/2020. Addendum EndsVIDEO EEG report for [facility] NAME: Sonu Sarabia DATE OF EE12/24/2020 DATE OF REPORT: 12/24/2020 ACC: [id number] Start time: 12/24/2020@08:33 Stop time: 12/24/2020@08:54 ICD-10: R41.82, R56.9 CPT Code: 43826 HISTORY: 75yo female with PMH of hypertension, presenting with ICH and SAH 2/2 R MCA aneurysm. now s/p R pte ronial craniotomy for R MCA bifurcation aneurysm and hematoma evacuation on 8/6 MEDICATIONS THAT COULD AFFECT THE EEG: Keppra, acetaminophen, dextrose, lovenox, apresoline, insulin, labetalol, loperamide, provigil, micardipine, nimodipine TECHNICAL SUMMARY: This is a [employer] digital Video-EEG recorded with 32 input channels [...] Hyperventilation was not performed. PHOTIC STIMULATION: Photic stimulationwas not performed. Photic stimulation was done from 1-20 Hz. Photic driving was not observed. There were no photoparoxysmal responses seen. ELECTROCARDIOGRAM EVENTS: Normal Sinus Rhythm IMPRESSION: Abnormal EEG in coma 1. Right hemisphere low voltage, nonreactive delta slowing 2. Left hemisphere thetaand intermixed delta slowing, reactive CLINICAL CORRELATION: The slowing and low voltages over the right hemisphere are consistent with a lesion there. The left sided theta and delta slowing are consistent with a moderate degree of encephalopathy. An EEG without epileptiform discharges does not exclude the possibility of epilepsy. If the clinical suspicion of epilepsy remains, consider additional EEGrecordings. Cirilo Mays M.D., HARPREET, FAAN, LARRY Professor of Neurology [facility] [employer] Director, [facility] Epilepsy Center Head, [facility] Neurophysiology Lab [facility] CampusPOCT-GLUCOSE [id number] 11:46:00 Test Item Value Reference Range Interpretation Comments POC-GLUCOSE METER 107 mg/dL 70-110 : TESTED A T [facility] 6720 (Open Places) (test code = [place], 1538) 32807: Legal Billing Coordinator/Techni marielos ID = [id number] for ANA SIMON POCT-GLUCOSE [id number] 05:41:00 Test Item Value Reference Range Interpretation Comments POC-GLUCOSE METER 131 mg/dL 70-110 H : TESTED A T [facility] 6720 (BEAKER) (test code = JOAN Haddad [facility], 1538) 90457: Legal Billing Coordinator/Techni marielos ID = [id number] for Deysi Thompson BASIC METABOLIC [id number] 03:52:00 Test Item Value Reference Range Interpretation [...] S NOT APPLICABLE FOR DIALYSIS PATIEN TS. Legal Billing Coordinator ID - CHRISTINA [id number] 03:52:00 Test Item Value Reference Range Interpretation Comments MAGNESIUM (BEAKER) (test code = 2.2 mg/dL 1.6-2.6 627) Legal Billing Coordinator ID - CHRISTINA [id number] 03:52:00 Test Item Value Reference Range Interpretation Comments PHOSPHORUS (BEAKER) (test code = 2.6 mg/dL 2.3-4.7 604) Legal Billing Coordinator ID - CHRISTINA WCBC W/PLT COUNT & AUTO [id number] 03:41:00 Test Item Value Reference Range Interpretation [...] PERCENT (BEAKER) (test code = 2801) POCT-GLUCOSE [id number] 23:31:00 Test Item Value Reference Range Interpretation Comments POC-GLUCOSE METER 132 mg/dL 70-110 H : TESTED A T [facility] 6720 (BEAKER) (test code = [place], 1538) 67676: Legal Billing Coordinator/Techni marielos ID = [id number] for Deysi Thompson POCT-GLUCOSE [id number] 17:30:00 Test Item Value Reference Range Interpretation Comments POC-GLUCOSE METER 111 mg/dL 70-110 H : TESTED A T [facility] 6720 (NAZARIO) (test code = JOAN Haddad [facility], 1538) 96385: Legal Billing Coordinator/Techni marielos ID = [id number] for Ar mstrong, Latesa [id number] 16:48:00 Test Item Value Reference Range Interpretation Comments SODIUM (NAZARIO) (test code = 381) 142 meq/L 136-145 Legal Billing Coordinator ID - DBPOCT-GLUCOSE [id number] 11:59:00 Test Item Value Reference Range Interpretation Comments POC-GLUCOSE METER 110 mg/dL 70-110 : TESTED A T [facility] 6720 (NAZARIO) (test code = [facility] Boo [facility], 1538) 23734: Legal Billing Coordinator/Techni marielos ID = [id number] for Ar mstrong, Latesa CT, BRAIN, WITHOUT [id number] 10:58:00Unlisted Reason for Exam - Click Yes and Enter Reason Below->YesUnlisted Reason for Exam->hydrocephal [facility] : 1945 Sex: FFINALREPORT CT, CTANGIO BRAIN, CT, BRAIN, WITHOUT CONTRASTBRAIN CT WITHOUT CONTRAST INDICATION: Unlisted Reason for Examspasm COMPARISON: 12/28/2020 and 12/29/2020 TECHNIQUE:Rapid acquisition spiral images were obtained between the skull base and the cranial vertex during intravenous contrast infusion to reconstruct axial images and angiographic 3D maximum intensity projections (MIP). 3-Dvolumetric reformatted images were created at a dedicated workstation. Precontrast images of the brain were also obtained. Stenosis [...] ventricle secondary to mass effect by hematoma isagain noted. No hydrocephalus. Layering intraventricular blood products [...] adjacent to the ophthalmic artery origin. No high- grade vasospasm. The remainder of the intracranial first and second order branches opacify normally. IMPRESSION: No significant interval change in postsurgical appearance status post right pterional craniotomy for M1-M2 an eurysm clipping. Residual hematoma within the right inferior frontal lobe and temporal lobes and associated mass effect is unchanged. Persistent 4 mm leftward midline shift and minimal leftward subfalcine herniation. No evidence of residual aneurysm in the treated right MCA. No significant vasospasm. 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 Signed: Ana Arreola MDReport Verified Date/Time: 01/06/2021 10:58:27 Reading Location: [address] Neuro Reading Room [facility], CTANG BRAIN 2021-01-06 10:58:00Unlisted Reason for Exam - Click Yes and Enter Reason Below- >YesUnlisted Reason for Exam->spasm [facility] : 1945 Sex: FFINALREPORT CT, CTANGIO BRAIN, CT, BRAIN, WITHOUT CONTRASTBRAIN CT WITHOUT CONTRAST INDICATION: Unlisted Reason for Examspasm COMPARISON: 12/28/2020 and 12/29/2020 TECHNIQUE:Rapid acquisition spiral images were obtained between the skull base and the cranial vertex during intravenous contrast infusion to reconstruct axial images and angiographic 3D maximum intensity projections (MIP). 3-Dvolumetric reformatted images were created at a dedicated workstation. Precontrast images of the brain were also obtained. Stenosis [...] ventricle secondary to mass effect by hematoma isagain noted. No hydrocephalus. Layering intraventricular blood products [...] adjacent to the ophthalmic artery origin. No high- grade vasospasm. The remainder of the intracranial first and second order branches opacify normally. IMPRESSION: No significant interval change in postsurgical appearance status post right pterional craniotomy for M1-M2 an eurysm clipping. Residual hematoma within the right inferior frontal lobe and temporal lobes and associated mass effect is unchanged. Persistent 4 mm leftward midline shift and minimal leftward subfalcine herniation. No evidence of residual aneurysm in the treated right MCA. No significant vasospasm. 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 Signed: Ana Arreola MDReport Verified Date/Time: 01/06/2021 10:58:27 Reading Location: [address] Neuro Reading Room POCT-GLUCOSE METER 2021-01-06 06:42:00 Test Item Value Reference Range Interpretation Comments POC-GLUCOSE METER 123 mg/dL 70-110 H : TESTED A T [facility] 6720 (BEAKER) (test code = [place], 1538) 17594: Legal Billing Coordinator/Techni marielos ID = [id number] for DERRICK GEORGE BASIC METABOLIC [id number] 02:52:00 Test Item Value Reference Range Interpretation [...] S NOT APPLICABLE FOR DIALYSIS PATIEN TS. Legal Billing Coordinator ID - BEN [id number] 02:38:00 Test Item Value Reference Range Interpretation Comments PHOSPHORUS (BEAKER) (test code = 3.0 mg/dL 2.3-4.7 604) Legal Billing Coordinator ID - BEN [id number] 02:38:00 Test Item Value Reference Range Interpretation Comments MAGNESIUM (BEAKER) (test code = 2.0 mg/dL 1.6-2.6 627) Legal Billing Coordinator ID - BEN MBLOOD GAS, [id number] 02:21:00 Test Item Value Reference Range Interpretation [...] 1819) 36.0 CBC W/PLT COUNT & AUTO [id number] 02:19:00 Test Item Value Reference Range Interpretation [...] PERCENT (BEAKER) (test code = 2801) POCT-GLUCOSE [id number] 01:29:00 Test Item Value Reference Range Interpretation Comments POC-GLUCOSE METER 120 mg/dL 70-110 H : TESTED A T [facility] 6720 (BEAKER) (test code = [place], 1538) 66458: Legal Billing Coordinator/Techni marielos ID = [id number] for DERRICK GEORGE [id number] 21:28:00 Test Item Value Reference Range Interpretation Comments SODIUM (BEAKER) (test code = 381) 139 meq/L 136-145 Legal Billing Coordinator ID - DBPOCT-GLUCOSE [id number] 18:06:00 Test Item Value Reference Range Interpretation Comments POC-GLUCOSE METER 106 mg/dL 70-110 : TESTED A T [facility] 6720 (BEAKER) (test code = [facility], 1538) 35042: Legal Billing Coordinator/Techni marielos ID = [id number] for Yesi nova (pca2), Margarita POCT-GLUCOSE [id number] 12:14:00 Test Item Value Reference Range Interpretation Comments POC-GLUCOSE METER 109 mg/dL 70-110 : TESTED A T [facility] 6720 (BEAKER) (test code = [facility], 1538) 93107: Legal Billing Coordinator/Techni marielos ID = [id number] for Yesi nova (pca2), Margarita [id number] 09:02:00 Test Item Value Reference Range Interpretation Comments PROCALCITONIN (BEAKER) (test code = < ng/mL <0.05 3036) SEPSIS RISK (ng/mL)Low: 0.05-0.50Intermediate: 0.51-2.00High: >=2.01BASIC METABOLIC [id number] 06:15:00 Test Item Value Reference Range Interpretation [...] S NOT APPLICABLE FOR DIALYSIS PATIEN TS. Legal Billing Coordinator ID - BEN MPOCT-GLUCOSE [id number] 05:53:00 Test Item Value Reference Range Interpretation Comments POC-GLUCOSE METER 122 mg/dL 70-110 H : TESTED A T [facility] 6720 (BEAKER) (test code = [facility], 1538) 42580: Legal Billing Coordinator/Techni marielos ID = [id number] for BEN FALL [id number] 05:53:00 Test Item Value Reference Range Interpretation Comments MAGNESIUM (BEAKER) (test code = 2.0 mg/dL 1.6-2.6 627) Legal Billing Coordinator ID - BEN [id number] 05:53:00 Test Item Value Reference Range Interpretation Comments PHOSPHORUS (BEAKER) (test code = 3.5 mg/dL 2.3-4.7 604) Legal Billing Coordinator ID - BEN MCBC W/PLT COUNT & AUTO [id number] 05:51:00 Test Item Value Reference Range Interpretation [...] (BEAKER) (test code = 2801) BLOOD GAS, [id number] 05:17:00 Test Item Value Reference Range Interpretation [...] (BEAKER) (test code = 1819) 40.0 POCT-GLUCOSE [id number] 00:24:00 Test Item Value Reference Range Interpretation Comments POC-GLUCOSE METER 117 mg/dL 70-110 H : TESTED A T [facility] 6720 (BEAKER) (test code = [place], 1538) 93698: Legal Billing Coordinator/Techni marielos ID = [id number] for GONZALO REYES BEN POCT-GLUCOSE [id number] 18:15:00 Test Item Value Reference Range Interpretation Comments POC-GLUCOSE METER 115 mg/dL 70-110 H : TESTED A T [facility] 6720 (BEAKER) (test code = JOAN Haddad [place], 1538) 11243: Legal Billing Coordinator/Techni marielos ID = [id number] for Yesi nova (pca2)Margarita [id number] 18:10:00 Test Item Value Reference Range Interpretation Comments Potassium (test code = 3.2 meq/L 3.5-5.1 L 2823-3) NETTIE (test code = NETTIE) Legal Billing Coordinator ID - BS Lab Interpretation (test Abnormal code = 68753-3) [facility] [id number] 18:10:00 Test Item Value Reference Range Interpretation Comments POTASSIUM (BEAKER) (test code = 3.2 meq/L 3.5-5.1 L 379) Legal Billing Coordinator ID - [id number] 14:49:00 Test Item Value Reference Range Interpretation Comments SODIUM (BEAKER) (test code = 381) 141 meq/L 136-145 Legal Billing Coordinator ID - ADMINHemoglobin and [id number] 14:40:00 Test Item Value Reference Range Interpretation [...] = 4544-3) NETTIE (test code = NETTIE) Legal Billing Coordinator ID - [id number] Lab Interpretation Abnormal (test code = 38636-3) [facility] DiegoHEMOGLOBIN AND [id number] 14:40:00 Test Item Value Reference Range Interpretation Comments HEMOGLOBIN (BEAKER) (test code = 7.6 GM/DL 11.2-15.7 L 410) HEMATOCRIT (BEAKER) (test code = 22.8 % 34.1-44.9 L 411) Legal Billing Coordinator ID - [id number]-GLUCOSE [id number] 11:57:00 Test Item Value Reference Range Interpretation Comments POC-GLUCOSE METER 90 mg/dL 70-110 : TESTED A T [facility] [address] (BEAKER) (test code = JOAN [place]add[place], 1538) 02592: Legal Billing Coordinator/Techni marielos ID = [id number] for Moises terrazas (pca2), Margarita BLOOD [id number] 09:01:00 Test Item Value Reference Range Interpretation Comments CULTURE (BEAKER) (test No growth in 5 days code = 1095) BLOOD [id number] 09:01:00 Test Item Value Reference Range Interpretation [...] for exam:->IntubatedShould this be performed at the bedside?->[facility] : 1945 Sex: FFINALREPORT RAD, CHEST, 1 VIEW, NON DEPT INDICATION: Intubated COMPARISON: January 03, 2021 FINDINGS: Portable frontal view of the chest. IMPRESSION: Support Lines: Stable. Lungs and pleura: No new consolidation. Left basilar subsegmental atelectasis. No pneumothorax.Heart and mediastinum: Stable contours. Additional findings: None. Signed: JR Mcmanus Robert MDReport Verified Date/Time: 01/04/2021 08:04:17 Reading Location: [facility] Radiology Reading Room CBC W/PLT COUNT & AUTO [id number] 05:10:00 Test Item Value Reference Range Interpretation [...] (BEAKER) (test code = 2801) BASIC METABOLIC [id number] 05:01:00 Test Item Value Reference Range Interpretation [...] S NOT APPLICABLE FOR DIALYSIS PATIEN TS. Legal Billing Coordinator ID - [id number] 04:58:00 Test Item Value Reference Range Interpretation Comments MAGNESIUM (BEAKER) (test code = 2.2 mg/dL 1.6-2.6 627) Legal Billing Coordinator ID - [id number] 04:58:00 Test Item Value Reference Range Interpretation Comments PHOSPHORUS (BEAKER) (test code = 3.8 mg/dL 2.3-4.7 604) Legal Billing Coordinator ID - ADMINBLOOD GAS, [id number] 04:27:00 Test Item Value Reference Range Interpretation [...] (BEAKER) (test code = 1819) 35.0 POCT-GLUCOSE [id number] 01:17:00 Test Item Value Reference Range Interpretation Comments POC-GLUCOSE METER 115 mg/dL 70-110 H : TESTED A T [facility] 6720 (BEAKER) (test code = [facility], 1538) 46225: Legal Billing Coordinator/Techni marielos ID = [id number] for IH DERRICK GEORGE POCT-GLUCOSE [id number] 17:51:00 Test Item Value Reference Range Interpretation Comments POC-GLUCOSE METER 126 mg/dL 70-110 H : TESTED A T [facility] 6720 (BEAKER) (test code = [facility], 1538) 70729: Legal Billing Coordinator/Techni marielos ID = [id number] for LE IJA, AURA [id number] 16:39:00 Test Item Value Reference Range Interpretation Comments SODIUM (BEAKER) (test code = 381) 139 meq/L 136-145 Legal Billing Coordinator ID - ADMINPOCT-GLUCOSE [id number] 11:41:00 Test Item Value Reference Range Interpretation Comments POC-GLUCOSE METER 133 mg/dL 70-110 H : TESTED A T [facility] 6720 (BEAKER) (test code = [facility], 1538) 18545: Legal Billing Coordinator/Techni marielos ID = [id number] for LE IJA, AURA RAD, CHEST, 1 VIEW, NON [id number] 09:34:00Reason for exam:- >intubatedShould this be performed at the bedside?->Yes [facility] [facility] : 1945 Sex: FFINALREPORT RAD, CHEST, 1 VIEW, NON DEPT INDICATION: intubated COMPARISON: Prior day's exam FINDINGS: Portable frontal view of the chest. IMPRESSION: Support Lines: Stable. Lungs and pleura: Clear lungs. No consolidation. No pneumothorax.Heart and mediastinum: Stable contours. Additional findings: None. Signed: JR Mcmanus Robert MDReport Verified Date/Time: 01/03/2021 09:34:12 Reading Location: [facility] Radiology Reading Room BASIC METABOLIC PANEL 2021-01-03 05:47:00 Test Item Value Reference Range Interpretation [...] S NOT APPLICABLE FOR DIALYSIS PATIEN TS. Legal Billing Coordinator ID - [id number] 05:47:00 Test Item Value Reference Range Interpretation Comments MAGNESIUM (BEAKER) (test code = 2.2 mg/dL 1.6-2.6 627) Legal Billing Coordinator ID - [id number] 05:47:00 Test Item Value Reference Range Interpretation Comments PHOSPHORUS (BEAKER) (test code = 3.2 mg/dL 2.3-4.7 604) Legal Billing Coordinator ID - ADMINPOCT-GLUCOSE [id number] 05:34:00 Test Item Value Reference Range Interpretation Comments POC-GLUCOSE METER 130 mg/dL 70-110 H : TESTED Alanna Jarvis [facility] 6720 (BEAKER) (test code = JOAN H[place], 1538) 475[address]: Legal Billing Coordinator/Techni marielos ID = [id number] for Deysi Thompson CBC W/PLT COUNT & AUTO [id number] 05:02:00 Test Item Value Reference Range Interpretation [...] (BEAKER) (test code = 2801) BLOOD GAS, [id number] 04:53:00 Test Item Value Reference Range Interpretation [...] (BEAKER) (test code = 1819) 35.0 POCT-GLUCOSE [id number] 23:24:00 Test Item Value Reference Range Interpretation Comments POC-GLUCOSE METER 130 mg/dL 70-110 H : TESTED A T [facility] 6720 (BEAKER) (test code = JOAN Haddad [facility], 1538) 25442: Legal Billing Coordinator/Techni marielos ID = [id number] for Deysi Thompson [id number] 18:30:00 Test Item Value Reference Range Interpretation Comments POTASSIUM (BEAKER) 4.2 meq/L 3.5-5.1 Specimen slightly (test code = 379) hemolyzed Legal Billing Coordinator ID - ADMINVenous doppler legs [id number] 18:05:34Ejection FractionSLEH ECHO HEARTLAB MKCKESSON CPACSRight Impression1. [...] possible elevated right heart filling pressure. Signature Velocities are measured in cm/s ; Diameters are measured in cm Interface, External Ris In - 01/02/2021 6:05 PM CDTPV LAB - Lower Extremities DVT Study Demographics Patient Name SONU ARELLANO Date of Study 01/02/2021 Age 75 Visit N manny [id number] Gender Female Date of 1945 Number Referring [facility] Room Number [id number] Physician Andre Carton Lettering Machine Operator Bartolo Clark RVS Interpreting MD Rebekah Ennis RVT Physician ProcedureType of Study: Veins: Lower Extremities DVT Study, VENOUS DOPPLER LEG, BILATERAL. Indications for Study:ICU surveillance.Patient Status:Routine.Study Location:Portable.Technical Quality:Adequate visualization.Risk FactorsHistory of Disease+----- +----+--------+!Diagnosis !Date!Comments!+---- +----+--------+!History/ Risk Factors: ! !HTN, SAH!+ +----+--------+ ImpressionsRight Impression1. There is no deep venous obstruction [...] possible elevated right heart filling pressure. Signature Velocities are measured in cm/s ; Diameters are measured in [facility]enaVenous doppler arms [id number] 18:05:01Ejection FractionSLEH ECHO HEARTLAB MKCKESSON CPACSRight Impression1. There [...] superficial venous systems were positive with acute th rombus. The bilateral deep venous system was patent and compressible with no evidence of thrombus. Signature Velocities are measured in cm/s ; Diameters are measured in cm Interface, External Ris In - 01/02/2021 6:05 PM CDTPV LAB - Upper Extremities Veins Demographics Patient Name SONU ARELLANO Date of Study 01/02/2021 Age 75 Visit Number [id number] Gender Female Date of 1945 Number Referring [facility] Room Number [id number] Physician Andre Carton Lettering Machine Operator Bartolo Clark RVS Interpreting MD Rebekah Ennis R [place] Physician ProcedureType of Study: Veins: Upper Extremities Veins, VENOUS DOPPLER ARMS, BILATERAL.Indications for Study:ICU surveillance.Patient Status:Routine.Study Location:Portable.Technical Quality:Adequate visualization. - Results were reported to:Sanjana RN @ 3234.Risk FactorsHistory of Disease + +----+--------+!Linda gnosis !Date!Comments !+ +----+--------+!Hi story/Risk Factors: ! !HTN, SAH!+ +----+--------+ ImpressionsRight Impression1. There is total echolucent superficial venous [...] in cm/s ; Diameters are measured in [facility] HelenaPOCT- GLUCOSE [id number] 17:46:00 Test Item Value Reference Range Interpretation Comments POC-GLUCOSE METER 134 mg/dL 70-110 H : TESTED A T [facility] 6720 (BEAKER) (test code = [facility], 1538) 84205: Legal Billing Coordinator/Techni marielos ID = [id number] for LE IJA, AURA [id number] 17:40:00 Test Item Value Reference Range Interpretation Comments SODIUM (BEAKER) (test code = 381) 139 meq/L 136-145 Legal Billing Coordinator ID - [id number] 15:00:00 Test Item Value Reference Range Interpretation Comments POTASSIUM (BEAKER) 3.8 meq/L 3.5-5.1 Specimen slightly (test code = 379) hemolyzed [id number] 13:34:00 Test Item Value Reference Range Interpretation Comments MAGNESIUM (BEAKER) (test code = 2.4 mg/dL 1.6-2.6 627) Transcranial Doppler Complete (TCD)2021-01-02 13:04:27AllaKelleeChloé 01/02/2021 1:04 PMTCD complete, [facility] [id number] 11:49:00 Test Item Value Reference Range Interpretation Comments POC-GLUCOSE METER 116 mg/dL 70-110 H : TESTED A T [facility] 6720 (BEAKER) (test code = [facility], 1538) 48447: Legal Billing Coordinator/Techni marielos ID = [id number] for LE IJA, AURA [id number] 07:20:00 Test Item Value Reference Range Interpretation Comments MAGNESIUM (BEAKER) 2.1 mg/dL 1.6-2.6 Specimen slightly (test code = 627) hemolyzed BASIC METABOLIC [id number] 07:20:00 Test Item Value Reference Range Interpretation [...] 1092) DATA TO CALCULA TE ESTIMATED GFR. [id number] 07:11:00 Test Item Value Reference Range Interpretation Comments PHOSPHORUS (BEAKER) 2.9 mg/dL 2.3-4.7 Specimen slightly (test code = 604) hemolyzed POCT-GLUCOSE [id number] 06:10:00 Test Item Value Reference Range Interpretation Comments POC-GLUCOSE METER 122 mg/dL 70-110 H : TESTED A T [facility] 6720 (BEAKER) (test code = JOAN Haddad [facility], 1538) 42855: Legal Billing Coordinator/Techni marielos ID = [id number] for Deysi Thompson CBC W/PLT COUNT & AUTO [id number] 04:22:00 Test Item Value Reference Range Interpretation [...] (BEAKER) (test code = 2801) BLOOD GAS, [id number] 04:16:00 Test Item Value Reference Range Interpretation [...] 1819) 35.0 RAD, CHEST, 1 VIEW, NON [id number] 04:05:00Reason for exam:- >intubatedShould this be performed at the bedside?->Yes [facility] 1945 Sex: FFINALREPORT RAD, CHEST, 1 VIEW, NON DEPT INDICATION: intubated COMPARISON: Prior day's exam FINDINGS: Portable frontal view of the chest. IMPRESSION: Support Lines: Stable. Lungs and pleura: No consolidation or sizable effusion. Unchanged bibasilar atelectasis. No pneumothorax.Heart and mediastinum: Stable contours.Additional findings: None. Signed: Danielle Espinal Verified Date/ Time: 01/02/2021 04:05:39 MR, BRAIN, WITHOUT [id number] 02:18:00Unlisted Reason for Exam - Click Yes and Enter Reason Below->No [facility] 1945 Sex: FFINALREPORT EXAM: MR, BRAIN, WITHOUT CONTRAST INDICATION: Intracranial [...] allowing for differences in technique regarding the p ostsurgical changes status post clipping of the right MCA bifurcation aneurysm and residual hemorrhage. There is shift of midline structures leftward of 0.5 cm, unchanged. Signed: Danielle Espinal MDReportVerified Date/Time: 01/02/2021 02:18:34 MR brain without IV [id number] 02:18:00Interface, External Ris In - 01/02/2021 2:20 AM CDTFINAL REPORT EXAM: MR, BRAIN, WITHOUT CONTRAST INDICATION: Intracranial hemorrhage, follow up TECHNIQUE: Sagittal and coronal T1-w and axial T2-FLAIR, GRE, fat-saturated T2-w, and diffusion-w images of the brain with ADC maps. COMPARISON: 12/30/2020 CT FINDINGS:Parenchyma: Postsurgical changes status post right pterional craniotomyfor right MCA bifurcation aneurysmal clipping. There is restricted diffusion in the right MCA territory compatible with acute infarction involving the right insula, right putamen, posterior right frontal lobe, right parietal lobe, and the right temporal lobe. No significant change in residual subarachnoid and intraparenchymal hemorrhage when correlated to recent CT with associated vasogenic edema andshift of midline right to left of 0.5 cm. No downward herniation. No new hemorrhage. Extra-axial Collection: As above Ventricular System: No hydrocephalus. Unchanged intraventricular hemorrhage. Major I ntracranial Flow Voids: Normal Osseous Structures: Expected marrow signal. 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 Otherwise, no significant change allowing for differences in technique regarding the postsurgical changes status post clipping ofthe right MCA bifurcation aneurysm and residual hemorrhage. There is shift of midline structures leftward of 0.5 cm, unchanged. Signed: Danielle Espinal MDReport Verified Date/Time: 01/02/2021 02:18:34 [facility] POCT-GLUCOSE [id number] 23:48:00 Test Item Value Reference Range Interpretation Comments POC-GLUCOSE METER 127 mg/dL 70-110 H : TESTED A T [facility] 6720 (Open Places) (test code = [place], 1538) 81681: Legal Billing Coordinator/Techni marielos ID = [id number] for Deysi Thompson VANCOMYCIN LEVEL, [id number] 20:05:00 Test Item Value Reference Range Interpretation Comments VANCOMYCIN TROUGH (BEAKER) (test 5.0 ug/mL 10.0-20.0 L code = 522) Legal Billing Coordinator ID - [id number] 18:24:00 Test Item Value Reference Range Interpretation Comments SODIUM (BEAKER) (test code = 381) 139 meq/L 136-145 [id number] 18:24:00 Test Item Value Reference Range Interpretation Comments MAGNESIUM (BEAKER) (test code = 2.3 mg/dL 1.6-2.6 627) [id number] 18:22:00 Test Item Value Reference Range Interpretation Comments POTASSIUM (BEAKER) (test code = 3.1 meq/L 3.5-5.1 L 379) POCT-GLUCOSE [id number] 18:02:00 Test Item Value Reference Range Interpretation Comments POC-GLUCOSE METER 140 mg/dL 70-110 H : TESTED A T [facility] 6720 (BEAKER) (test code = JOAN Haddad [facility], 1538) 63793: Legal Billing Coordinator/Techni marielos ID = [id number] for LE IJA, AURA Transcranial Doppler Complete (TCD)2021-01-01 17:05:10Chloé Gold 01/01/2021 5:05 PMTCD complete, [facility]PO[facility] [id number] 12:19:00 Test Item Value Reference Range Interpretation Comments POC-GLUCOSE METER 143 mg/dL 70-110 H : TESTED A T [facility] 6720 (BEAKER) (test code = JOAN Haddad [facility], 1538) 35028: Legal Billing Coordinator/Techni marielos ID = [id number] for LE IJA, AURA SPUTUM CULTURE + GRAM [id number] 10:58:00 Test Item Value Reference Range Interpretation Comments CULTURE (BEAKER) (test No growth code = 1095) GRAM STAIN RESULT 1+ WBCs (BEAKER) (test code = 1123) GRAM STAIN RESULT 0-5 epithelial cells (BEAKER) (test code = 06566) GRAM STAIN RESULT No organisms seen (BEAKER) (test code = 53026) SPUTUM CULTURE + GRAM [id number] 10:46:00 Test Item Value Reference Range Interpretation Comments CULTURE (BEAKER) (test code No growth = 1095) GRAM STAIN RESULT (BEAKER) 2+ WBCs (test code = 1123) GRAM STAIN RESULT (BEAKER) No organisms seen (test code = 33132) RAD, CHEST, 1 VIEW, NON [id number] 10:03:00Reason for exam:- >intubatedShould this be performed at the bedside?->Yes [facility] 1945 Sex: FFINALREPORT TECHNIQUE: One view of the chest. INDICATION: 75-year-old woman status post intubation. COMPARISON: Chest radiograph 12/30/2020. FINDINGS: LINES/TUBES: Endotracheal tube terminates 2.3 cm above the carlo. Incompletely visualized feeding tube courses over the expected region of the gastric body. LUNGS: Lungs are well inflated. No consolidation or pulmonary edema. Curvilinear left basilar atelectasis. PLEURA: No pneumothorax or significant pleural effusion. HEART AND MEDIASTINUM: Cardiomediastinal silhouette is unchanged. BONES AND SOFT TISSUES: Unremarkable. IMPRESSION:Lines/tubes as above. No acute cardiopulmonary abnormality. Signed: Yodit Martines MDReport Verified Edwin e/Time: 01/01/2021 10:03:00 Reading Location: [facility] Diagnostic Imaging Reading Room - [place] [address] [id number] 09:01:00 Test Item Value Reference Range Interpretation Comments PHOSPHORUS (BEAKER) 2.4 mg/dL 2.3-4.7 Specimen slightly (test code = 604) hemolyzed [id number] 08:54:00 Test Item Value Reference Range Interpretation Comments MAGNESIUM (BEAKER) 2.1 mg/dL 1.6-2.6 Specimen slightly (test code = 627) hemolyzed BASIC METABOLIC [id number] 08:54:00 Test Item Value Reference Range Interpretation [...] TO CALCULA TE ESTIMATED GFR. BLOOD GAS, [id number] 07:40:00 Test Item Value Reference Range Interpretation [...] (BEAKER) (test code = 1819) 35.0 POCT-GLUCOSE [id number] 05:24:00 Test Item Value Reference Range Interpretation Comments POC-GLUCOSE METER 155 mg/dL 70-110 H : TESTED A T [facility] 6720 (BEAKER) (test code = [place], 1538) 83104: Legal Billing Coordinator/Techni marielos ID = [id number] for Deysi Thompson CBC W/PLT COUNT & AUTO [id number] 04:51:00 Test Item Value Reference Range Interpretation [...] PERCENT (BEAKER) (test code = 2801) POCT-GLUCOSE [id number] 23:38:00 Test Item Value Reference Range Interpretation Comments POC-GLUCOSE METER 112 mg/dL 70-110 H : TESTED A T [facility] 6720 (BEAKER) (test code = [facility] [place], 1538) 810[address]: Legal Billing Coordinator/Techni marielos ID = [id number] for Deysi Thompson POCT-GLUCOSE [id number] 19:23:00 Test Item Value Reference Range Interpretation Comments POC-GLUCOSE METER 109 mg/dL 70-110 : TESTED A T [facility] 6720 (BEAKER) (test code = [facility] [place]oo [facility], 1538) 47062: Legal Billing Coordinator/Techni marielos ID = [id number] for EVANS ERAZO [id number] 16:35:00 Test Item Value Reference Range Interpretation Comments MAGNESIUM (BEAKER) 2.3 mg/dL 1.6-2.6 Specimen slightly (test code = 627) hemolyzed Legal Billing Coordinator ID - [id number] 16:35:00 Test Item Value Reference Range Interpretation Comments POTASSIUM (BEAKER) 3.7 meq/L 3.5-5.1 Specimen slightly (test code = 379) hemolyzed Legal Billing Coordinator ID - [id number] 16:35:00 Test Item Value Reference Range Interpretation Comments SODIUM (BEAKER) (test code = 381) 138 meq/L 136-145 Legal Billing Coordinator ID - DBTranscranial Doppler Complete (TCD)2020-12-31 16:25:13 Heraclio Davila MD 01/04/2021 11:00 [facility]- Transcranial Doppler Report Referring physician: Dr. Martinez Indication: aSAH Maximal estimated mean bloodflow velocities (cm / sec): R EC ICA 38 L EC ICA 36 R Ophthalmic - L Ophthalmic - R MCA 80 R PABLO 53 R ICA R HOME LIGHTING ADVISER 64 L MCA 67 L PABLO 74 L ICA L HOME LIGHTING ADVISER 48 R vertebral 25 L vertebral 27 Basilar 28 Lindegaard (R MCA:R ECICA) 2.11 Lindegaard (L MCA:L ECICA) 1.87 Post bleed day #: 3 Velocity Range Thompson Elevated velocity = 90 - 119 cm/sec Mild vasospasm = 120 - 159 cm/sec Moderate vasospasm = 160 - 199 cm/sec Severe vasospasm = ? 200 cm/sec Interpretation:Velocities within acceptable range. Clinical Correlation i s recommended. I performed the procedure and reviewed records, and agree with documentation above. .[facility] DiegoRAD, ABDOMEN/KUB, 1 VIEW AP 2020-12-31 13:56:00Reason for exam:->check placement of feeding tubeShould this be performed at the bedside?->Yes [facility] : 1945 Sex: FFINALREPORT RAD, ABDOMEN/KUB, 1 VIEW AP COMPARISON: December 28, 2020 INDICATION: checkplacement of feeding tube IMPRESSION:A feeding tube has been placed. The distal tip projects over the antrum. The visible bowel gas pattern is unremarkable. Signed: JR Mcmanus Robert MDReport Verified Date/Time: 12/31/2020 13:56:31 Reading Location: [facility] Radiology Reading Room XR abdomen / KUB 1 [id number] 13:56:00Interface, External Ris In - 12/31/2020 1:58 PM CDTFINAL REPORT RAD, ABDOMEN/KUB, 1 VIEW AP COMPARISON: December 28, 2020 INDICATION: check placement of feeding tube IMPRESSION:A feeding tube has been placed. The distal tip projects over the antrum. The visible bowel gas pattern is unremarkable. Signed: JR [place], Leon Doherty Verified Date/Time: 12/31/2020 13:56:31 [facility] 2020-12-31 12:58:00 Test Item Value Reference Range Interpretation Comments POC-GLUCOSE METER 127 mg/dL 70-110 H : TESTED A T [facility] 6720 (BEAKER) (test code = JOAN [place], 1538) 76508: Legal Billing Coordinator/Techni marielos ID = [id number] for An roni (pca2), Jaye [id number] 06:49:00 Test Item Value Reference Range Interpretation Comments MAGNESIUM (BEAKER) 2.0 mg/dL 1.6-2.6 Specimen slightly (test code = 627) hemolyzed Legal Billing Coordinator ID - ADMINBASIC METABOLIC [id number] 04:34:00 Test Item Value Reference Range Interpretation [...] 1092) DATA TO CALCULA TE ESTIMATED GFR. Legal Billing Coordinator ID - ADMINCBC W/PLT COUNT & AUTO [id number] 04:06:00 Test Item Value Reference Range Interpretation [...] PERCENT (BEAKER) (test code = 2801) POCT-GLUCOSE [id number] 00:19:00 Test Item Value Reference Range Interpretation Comments POC-GLUCOSE METER 112 mg/dL 70-110 H : TESTED A T [facility] 6720 (BEAKER) (test code = [place], 1538) 37485: Legal Billing Coordinator/Techni marielos ID = [id number] for Deysi Thompson Prepare Leuko-Red [id number] 23:54:00 Test Item Value Reference Range Interpretation Comments CROSSMATCH (test code = 2264) COMPATIBLE Unit ABO (test code = B Pos 4709889) UNIT NUMBER (test code = [id number] 934-0) Status (test code = 3345365) [place]_TIMEINCHART Blood Bank Product (test code RED BLOOD CELLS = 2263) PRODUCT CODE (test code = K2624O26 933-2) [facility] San DiegoHEMOGLOBIN AND [id number] 21:07:00 Test Item Value Reference Range Interpretation Comments HEMOGLOBIN (BEAKER) (test code = 8.3 GM/DL 11.2-15.7 L 410) HEMATOCRIT (BEAKER) (test code = 24.7 % 34.1-44.9 L 411) Legal Billing Coordinator ID - [id number] W VID 2-12 HR CONTINUOUS MONITORING (VEEG)2020-12-30 18:16:00BillingCENTINELA FREEMAN [facility]Name: [facility] : 1945 Sex: FCOX NORTH'S Video EEG REPORT NAME: Sonu Arellano DATE(s) OF TEST: 12/30/2020 DATE OF REPORT: 12/30/2020 ACC: [id number] Start time/date: 12/30/20, 8:12 am Stop time/date: 12/30/20, 4:28 pm ICD-10: R56.9 CPT Code: 88624 HISTORY: 75 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 MEDICATIONS THAT COULD AFFECT EEG: Carolynra TECHNICAL SUMMARY: [facility] recorded with 32 input channels reviewed with bipolar and referential montages usingthe modified combinatorial system nomenclature. DESCRIPTION OF RECORD: [...] Attending EEG 2-12 HR Continuous Monitoring with Video 2020-12-30 18:16:00Interface, External Ris In - 12/30/2020 6:16 PM [facility] Video EEG REPORT NAME: Sonu Arellano DATE(s) OF TEST: 12/30/2020 DATE OF REPORT: 12/30/2020 ACC: [id number] Start time/date: 12/30/20, 8:12 am Stop time/date: 12/30/20, 4:28 pm ICD-10: R56.9 CPT Code: 22217 HISTORY: 75 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 MEDICATIONS THAT COULD AFFECT EEG: Keppra TECHNICAL SUMMARY: This is a [facility] EEG recorded with 32 input channels reviewed with bipolar and referential montages using the modified combinatorial system nomenclature. DESCRIPTION OF RECORD: No posterior dominant rhythm was seen. The background is asymmetric with admixed theta and delta on the left side which is sharply contoured with a poor anterior to posteriorgradient with attenuation of all frequencies over the right side. State changes and reactivity were seen but no stage II sleep structures were present. INTERICTAL EPILEPTIFORM DISCHARGES: Frequent 7-10second runs of 1-2 Hz lateralized rhythmic delta activity at times with superimposed 1 Hz sharply contoured blunted delta seen over the right frontocentral region without definite evolution (LRDA +S). EVENTS/SEIZURES: None HV: Hyperventilation was not done. PHOTIC STIMULATION: Photic stimulation was no t performed during this recording ELECTROCARDIOGRAM EVENTS: Normal Sinus Rhythm IMPRESSION: This is an abnormal video-EEG study due to the presence of Lateralized rhythmic delta activity with sharply contoured blunted delta, regional right fronto-central (LRDA+S) Continuous slow, generalized and attenu ated right hemisphere Asymmetry all frequencies, decreased right [...] Frankie Kitchen MD, MS Clinical Neurophysiology/Epilepsy Attending [facility]OD[facility]UM[facility]21-[facility] 17:35:00 Test Item Value Reference Range Interpretation Comments SODIUM (NAZARIO) (test code = 381) 139 meq/L 136-145 Legal Billing Coordinator ID - CHRISTINA WPOCT-GLUCOSE [id number] 17:22:00 Test Item Value Reference Range Interpretation Comments POC-GLUCOSE METER 116 mg/dL 70-110 H : TESTED A T [facility] 6720 (NAZARIO) (test code = [place], 1538) 92546: Legal Billing Coordinator/Techni marielos ID = [id number] for SEBASTIÁN STARKS Transcranial Doppler Complete (TCD)2020-12-30 16:35:00Julian Epstein MD 01/03/2021 4:38 [facility] Transc[facility] Report Indica tion: aSAH Maximal estimated mean blood flow velocities (cm / sec): R EC ICA 39 L EC ICA 31 R Ophthalmic L Ophthalmic R MCA 80 R PABLO 49 R ICA R HOME LIGHTING ADVISER 58 L MCA 58 L PABLO L ICA L HOME LIGHTING ADVISER R vertebral L [id number] Basilar 34 Lindegaard (R MCA:R ECICA) 2.05 [place]ard (L MCA:L ECICA) 1.87 Post bleed day #: 2 Velocity Range Thompson Elevated velocity = 90 - 119 cm/sec Mild vasospasm = 120 - 159 cm/sec Moderate vasospasm = 160 - 199 cm/sec Severe vasospasm = ? 200 cm/sec Interpretation:Velocities within acceptable ranges.Clinical Correlation is recommended.[facility] Hospital of San DiegoCT, BRAIN, WITHOUT [id number] 12:31:00Unlisted Reason for Exam - Click Yes and Enter Reason Below- >YesUnlisted Reason for Exam->Leftpupil large [facility] EILEEN [facility]U : 1945 Sex: FFINALREPORT CT, BRAIN, WITHOUT CONTRAST CLINICAL INDICATION: Unlisted Reason for ExamLeft pupil large COMPARISON: December 29, 2020 TECHNIQUE: Noncontrast axial CT imaging of the brain andskull. DOSE REDUCTION: Dose modulation, iterative reconstruction, and/or weight-based adjustment of the mA/kV was utilized to reduce the radiation dose to as low as reasonably achievable. IMPRESSION: Im proving midline shift measuring 5 mm leftward compared to 8 mm on the prior date. Surgical changes in the right hemisphere and associated subarachnoid blood are grossly stable. No interval ischemic injury. No left-sided herniation to explain the provided symptom. Decreasing pneumocephalus. Stable calvarial and vascular surgical changes. Signed: JR Mcmanus Robert MDReport Verified Date/Time: 12/30/2020 12:31:25 Reading Location: [address] Neuro Reading Room POCT- GLUCOSE [id number] 12:13:00 Test Item Value Reference Range Interpretation Comments POC-GLUCOSE METER 122 mg/dL 70-110 H : TESTED A T [facility] 6720 (NAZARIO) (test code = ABDIRAHMANKIERAN LONG [address], 1538) [address]: Legal Billing Coordinator/Techni marielos ID = [id number] for BRADEN SEBASTIÁN CORDERO EEG W VID 12-26 HR CONTINUOUS MONITORING (VEEG)2020-12-30 11:38:00[facility] 12/29/2020[facility] 1945 [facility] REPORT NAME: Sonu Arellano DATE(s) OF TEST: 12/28/2020 - 12/30/2020 DATE OF REPORT: 12/30/2020 ACC: [id number] EE-[id number] Start time/date: 12/29/20, 1:34 pm Stop time/date: 12/30/20, 8:12 am ICD-10: R56.9 CPT Code: 48602 HISTORY: 75 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 MEDICATIONS THAT COULD AFFECT EEG: Yoseph TECHNICAL SUMMARY: This is a [employer] [facility] [place] digital video EEG recorded with 32 [...] seizures. No electrographic seizures have been captured. Neurophysiolog y/Epilepsy Fellow Echo Castrejon MD I have reviewed this electroencephalogram, discussed the findings with the fellow, addended the fellow's report and agree with the overall assessment. Frankie Kitchen MD, MS Clinical Neurophysiology/Epilepsy Attending EEG 12-26 HR Continuous Monitoring with Video 2020-12-30 11:38:00Interface, External Ris In - 12/30/2020 11:39 AM [facility] Video EEG REPORT NAME: Sonu Arellano DATE(s) OF TEST: 12/28/2020 - 12/30/2020 DATE OF REPORT: 12/30/2020 ACC: [id number] [id number] Start time/date: 12/29/20, 1:34 pm Stop time/date: 12/30/20, 8:12 am ICD-10: R56.9 CPT Code: 94709 HISTORY: 75 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 MEDICATIONS THAT COULD AFFECT EEG: Keppra TECHNICAL SUMMARY: This is a [employer] digital video EEG recorded with32 input channels reviewed with bipolar and referential [...] STIMULATION: Photic stimulation was not performed during thisrecording ELECTROCARDIOGRAM EVENTS: Normal Sinus Rhythm IMPRESSION: This [...] activity + S is a marker of acutecortical irritability that has been associated with an increased risk of electrographic seizures. Noelectrographic seizures have been captured. Neurophysiology/Epilepsy Fellow Echo Castrejon MD I have reviewed this electroencephalogram, discussed the findings with the fellow, addended the fellow's report and agree with the overall assessment. 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 MD Tierney Physician Procedure Type of Study TTE procedure:2DECHO W DOPPLER(CW/PW/COLOR) (STAT) Indications:Hypotension or hemodynamic instability.Clinical HistoryHGB 6.1HCT 18.3 %SAHHTNHeight: 64 inches Weight: 64.86 kg (143 lbs) BSA: 1.7 m^2 BMI: 24.55 kg/m^2HR: 99 bpm BP: 106/56 mmHg Summary The left ventricle is chamber size (by vol index) is normal (female - LVED vol - 29-61ml/m2). Normal LV wall thickness. Global LV systolic function hyperdynamic . Estimated LVEF by qualitative assessment is increased (>70%) . High (cardiac index >4 L/min/m2) cardiac output state at rest is noted.Otherwise, essentially normal exam. No significant valve disease detected. The estimated RA pressureby IVC dynamics 5-10mmHg . Signature --- Findings Left Ventricle The left ventricle is chamber size (by vol index) is normal (female - LVED vol - 29-61ml/m2). Normal LV wall thickness. Global LV systolic function hyperdynamic . Estimated LVEF by qualitative assessment is increased(>70%) . High (cardiac index >4 L/min/m2) cardiac output state at rest is noted. Left Atrium LA size is normal . Right Ventricle Normal right ventricle structure and function. Right Atrium Normalright atrium. Aortic Valve Normal AoV structure. Mitral Valve Normal MV structure. Tricuspid Valve Mild tricuspid regurgitation. Estimated peak systolic PA pressure is 40-45 mmHg (mild pulmonary hypertension) . Pulmonic Valve Normal PV structure and function by limited views and Doppler. Aorta Aortic root size (SInus of Valsalva diameter) is normal . Pericardium No evidence of pericardial effusion. IVC/SVC/PA/PV/Pleural The estimated RA [...] % LVEDVI: 32 ml/m^2 LVESVI: 11 ml/m^2 LVOT Diameter: 1.9 cm Aorta Ao Root S of Anika.: 2.9 cm Ascending Aorta: 2.91 cm Doppler/Quantitative Measurements Mitral Valve MV Peak E-Wave: 1.13 m/s MV Peak A-Wave: 0.98 m/s E/A Ratio: 1.16 Peak Gradient: 5.14 mmHg Deceleration Time: 205 msec MV Morgan. Peak: Aortic Valve Peak Velocity: 1.85 m/s Mean Velocity: 1.23 m/s [...] 7.98 l/min LVOT CI: 4.69 l/min/m^2 Tricuspid Valve TR Velocity: 2.64 m/s TR Gradient:27.88 mmHgChildren's Hospital of San [id number] 11:08:00 Test Item Value Reference Range Interpretation Comments PROCALCITONIN (BEAKER) (test code 0.72 ng/mL <0.05 H = 3036) SEPSIS RISK (ng/mL)Low: 0.05-0.50Intermediate: 0.51-2.00High: >=2.01 Urinalysis Microscopic [id number] 10:55:00 Test Item Value Reference Range Interpretation Comments RBC, UA (test 12 See_Comment [Automated me ssage] code = 19285-5) The system [facility] generated this result transmitted ref erence range: /HPF. Th e reference range was not used to int erpret this result as normal/abnormal . WBC, UA (test 1 See_Comment [Automated me ssage] code = 5821-4) The system [facility] generated this result transmitted ref erence range: /HPF. Th e reference range was not used to int erpret this result as normal/abnormal . Bacteria, UA None Seen (test code = 23418-2) Mucus (test Rare code = 8247-9) Squam Epithel, <1 See_Comment [Automated m essage] UA (test code = The system w [facility] 82103-5) generated this result transmitted ref erence range: /HPF. Th e reference range was not used to int erpret this result as normal/abnormal . Crystals, Urine None Seen (test code = 95408-7) NETTIE (test code Legal Billing Coordinator ID - tech = NETTIE) [facility] San DiegoURINALYSIS [id number] 10:55:00 Test Item Value Reference Range Interpretation Comments RBC UA (BEAKER) (test code = 519) 12 /HPF WBC UA (BEAKER) (test code = 520) 1 /HPF BACTERIA (BEAKER) (test code = 517) None Seen MUCUS (BEAKER) (test code = 1574) Rare SQUAMOUS EPITHELIAL (BEAKER) (test < /HPF code = 516) CRYSTALS, URINE (BEAKER) (test code None Seen = 1521) Legal Billing Coordinator ID - techUrinalysis with Microscopic If [id number] 10:20:00 Test Item Value Reference Range Interpretation Comments Color, UA (test code = Light Yellow 5778-6) Clarity, UA (test code = Clear 5767-9) Specific [place], UA (test 1.020 1.001-1.035 code = 5811-5) pH, UA (test code = 6.0 5.0-8.0 5803-2) Protein, UA (test code = 30 mg/dL Negative A 62750-1) Glucose, UA (test code = Negative Negative 365) Ketones, UA (test code = Negative Negative 2514-8) Bilirubin, UA (test code = Negative Negative 64406-9) Blood, UA (test code = Small Negative A 89234-5) Nitrite, UA (test code = Negative Negative 5802-4) Leukocytes, UA (test code Negative Negative = 5799-2) Urobilinogen, UA (test 0.2 mg/dL 0.2-1 code = 94680-3) Specimen Source (test code = 2795) NETTIE (test code = NETTIE) Legal Billing Coordinator ID - [auto] Lab Interpretation (test Abnormal code = 02640-6) [facility] DiegoURINALYSIS WITH MICROSCOPIC IF [id number] 10:20:00 Test Item Value Reference Range Interpretation [...] = 463) SOURCE(BEAKER) (test code = 2795) Legal Billing Coordinator ID - [auto][id number] 09:53:00 Test Item Value Reference Range Interpretation Comments MAGNESIUM (BEAKER) 2.2 mg/dL 1.6-2.6 Specimen slightly (test code = 627) hemolyzed Legal Billing Coordinator ID - CHRISTINA WCBC W/PLT COUNT & AUTO [id number] 09:48:00 Test Item Value Reference Range Interpretation [...] CONCENTRATION Adequate (CELLAVISION)(BEAKER) (test code = 3438) Legal Billing Coordinator ID - Margarita OverholtUser comments: Slide comments:POCT-GLUCOSE METER 2020-12-30 07:07:00 Test Item Value Reference Range Interpretation Comments POC-GLUCOSE METER 152 mg/dL 70-110 H : TESTED A T [facility] 6720 (BEAKER) (test code = [place]AN [place], 1538) [address]: Legal Billing Coordinator/Techni marielos ID = [id number] for [address] [place] BASIC METABOLIC [id number] 06:30:00 Test Item Value Reference Range Interpretation [...] 1092) DATA TO CALCULA TE ESTIMATED GFR. Legal Billing Coordinator ID - CHRISTINA SANDERSON, CHEST, 1 VIEW, NON [id number] 04:02:00Reason for exam:->IntubatedShould this be performed at the bedside?->Yes [facility] : 1945 Sex: FFINALREPORT CLINICAL INDICATION: Support lines. Comparison: 12/29/2020 The cardiomediastinal contours are stable. The upper lungs are clear. Central pulmonary vascular prominence and bilateral parenchymal and pleural opacities are otherwise similar to previous. There is no pneumothorax. Support lines are stable. Signed: Gissell Moore MDReport Verified Date/Time: 12/30/2020 04:02:02 SODIUM 2020-12-30 01:05:00 Test Item Value Reference Range Interpretation Comments SODIUM (BEAKER) (test code = 381) 142 meq/L 136-145 Legal Billing Coordinator ID - DBPOCT-GLUCOSE [id number] 00:20:00 Test Item Value Reference Range Interpretation Comments POC-GLUCOSE METER 144 mg/dL 70-110 H : TESTED A T [facility] 6720 (BEAKER) (test code = [facility], 1538) [address]: Legal Billing Coordinator/Techni marielos ID = [id number] for [facility] RELA, CARSON HEMOGLOBIN AND [id number] 17:28:00 Test Item Value Reference Range Interpretation Comments HEMOGLOBIN (BEAKER) (test code = 8.0 GM/DL 11.2-15.7 L 410) HEMATOCRIT (BEAKER) (test code = 23.5 % 34.1-44.9 L 411) Legal Billing Coordinator ID - 6000POCT-GLUCOSE [id number] 17:27:00 Test Item Value Reference Range Interpretation Comments POC-GLUCOSE METER 148 mg/dL 70-110 H : Notified RN/MD: (NAZARIO) (test code = TESTED AT [facility] 6720 1538) [facility], [address]: Legal Billing Coordinator/Techni marielos ID = [id number] for LL OYD, TIKEYA EEG W VID 12-26 HR CONTINUOUS MONITORING (VEEG)2020-12-29 17:12:00Reason for exam:->ICH concern for seizure [facility] : 1945 Sex: FDAVID [facility] Video EEG REPORT NAME: Kranthi ArellanoN: [id number]([id number]) OF TEST: 12/28/2020 -12/29/2020ATE OF REPORT: 12/29/2020 ACC: [id number]: 21- 1178 Start time/date: 12/28/20, 1111pStop time/date: 12/29/20, 134pICD-10: R56.9CPT Code: 72292 HISTORY: 75 y/o female with R parietal ICH/SAH s/paneurysm clipping MEDICATIONS THAT COULD AFFECT EEG: Fosphenytoin, Keppra TECHNICAL SUMMARY:This is a [employer] [facility] [place] digital video EEG recorded with 32 input channels reviewed with bipolar and referential montages using the modified combinatorial system nomenclature. DESCRIPTION OF RECORD:During this study, patient is poorly responsive, intubated but not on sedation. No posterior dominant rhythm was see n. The background is asymmetric with admixed theta [...] to the presence ofLateralized rhythmic delta activity, regionalright fronto-central (LRDA)Continuous slow, generalized and attenuated right hemisphereAsymmetry allfrequencies, decreased right hemisphere CLINICAL CORRELATION:This day 1 of continuous EEG monitoringis suggestive of a moderate to severe degree of encephalopathy with superimposed focal dysfunction over the right hemisphere. There has been improvement in the degree of right hemispheric dysfunction. Lateralized rhythmic delta activity is a marker of acute cortical irritability that has been associated with an increased risk of electrographic seizures. No electrographic seizures have been captured. N europhysiology/Epilepsy FellowEcho Castrejon MD I have reviewed this electroencephalogram,discussed the findings with the fellow, addended the fellow's report and agree with the overall assessment. Frankie Kitchen MD, MSClinical Neurophysiology/Epilepsy Attending EEG 12-26 HR Continuous Monitoring with [id number] 17:12:00Interface, External Ris In - 12/29/2020 5:12 PM [facility] Video EEG REPORT NAME: Sonu ArellanoMRN: [id number](s) OF TEST: 12/28/2020 - 12/29/2020ATE OF REPORT: 12/29/2020 ACC: [id number]: 21- 1178 Start time/date: 12/28/20, 1111pStop time/date: 12/29/20, 134pICD-10: R56.9CPT Code: 20403 HISTORY: 75 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 MEDICATIONS THAT COULD AFFECT EEG: Fosphenytoin, Keppra TECHNICAL SUMMARY:This is a [employer] [facility] [place] digital video EEG recorded with 32 input channels reviewed with bipolar and referential montages using the modified combinatorial system nomenclature. DESCRIPTION OF RECORD:During this study, patient is poorly responsive, intubated but not on sedation. No posterior dominant rhythm was seen. The background is asymmetric with admixedtheta and delta on the left side which [...] PHOTIC STIMULATION: Photic stimulation was done during baselineEEG recording, from 1-33 Hz; no photic driving was seen; photoparoxysmal responses were absent. ELECT ROCARDIOGRAM EVENTS: Normal Sinus Rhythm IMPRESSION: This is an abnormal video- EEG study due to the presence ofLateralized rhythmic delta activity, regional right fronto-central (LRDA)Continuous slow, generalized and attenuated right hemisphereAsymmetry all frequencies, decreased right hemisphere CLINICAL CORRELATION:This day 1 of continuous EEG monitoring is suggestive of a moderate to severe degreeof encephalopathy with superimposed focal dysfunction over the [...] assessment. Frankie Kitchen MD, MSClinical Neurophysiology/Epilepsy Attending [facility] HospitalODIUM 2020-12-29 16:46:00 Test Item Value Reference Range Interpretation Comments SODIUM (BEAKER) (test code = 381) 144 meq/L 136-145 Legal Billing Coordinator ID - BEN MPOCT-GLUCOSE [id number] 12:31:00 Test Item Value Reference Range Interpretation Comments POC-GLUCOSE METER 185 mg/dL 70-110 H : Notified RN/MD: (NAZARIO) (test code = TESTED AT [facility] 6720 1538) [facility], [address]: Legal Billing Coordinator/Techni marielos ID = [id number] for LL JAILENE RADHASHUKRI CT, CTANGIO [id number] 10:52:00Include non-contrast CTHUnlisted Reason for Exam - Click Yes and Enter Reason Below->YesUnlisted Reason for Exam- >aSAH s/p clipCENTINELA [facility]REEMAN [facility]USName: SARKIS ARELLANOETTA : 1945 Sex: FFINALREPORT CT, CTANGIO BRAINBRAIN CT WITHOUT CONTRAST INDICATION: Unlisted Reason for ExamaSAH s/p clip COMPARISON: Noncontrast head CT December 28, 2020 TECHNIQUE:Rapid acquisition spiral images were obtained between [...] Decreasing pneumocephalus redistributing across the hemispheres with decreasedmidline shift, now measuring approximately 8 mm rightward at the level of the foramen of Monro. Persistent subarachnoid and intraventricular hemorrhage, also undergoing redistribution and evolution. Whi te matter and ischemic changes are grossly stable. Osseous structures are unchanged. 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 Remaining intracranial vascular structures are stable and [...] JR Mcmanus Robert MDReport Verified Date/Time: 12/29/2020 10:52:22 Reading Location: [facility] C0[facility] Neuro Reading Room CBC W/PLT COUNT & AUTO [id number] 09:24:00 Test Item Value Reference Range Interpretation [...] CONCENTRATION Decreased (CELLAVISION)(BEAKER) (test code = 3438) Legal Billing Coordinator ID - Margarita OverholtUser comments: Slide comments:Hemoglobin A1c 2020-12-29 07:57:00 Test Item Value Reference Range Interpretation Comments Hemoglobin A1C (test code = 4548-4) 5.3 % 4.3-6.1 Lab Interpretation (test code = Normal 84250-5) [facility] DiegoHEMOGLOBIN [id number] 07:57:00 Test Item Value Reference Range Interpretation Comments HEMOGLOBIN A1C (BEAKER) (test code = 5.3 % 4.3-6.1 368) BLOOD GAS, [id number] 07:52:00 Test Item Value Reference Range Interpretation [...] (test code = 1819) 100.0 BASIC METABOLIC [id number] 07:06:00 Test Item Value Reference Range Interpretation [...] 1092) DATA TO CALCULA TE ESTIMATED GFR. Legal Billing Coordinator ID - BEN [id number] 07:03:00 Test Item Value Reference Range Interpretation Comments MAGNESIUM (BEAKER) (test code = 2.5 mg/dL 1.6-2.6 627) Legal Billing Coordinator ID - BEN [id number] 07:03:00 Test Item Value Reference Range Interpretation Comments PHOSPHORUS (BEAKER) (test code = 2.1 mg/dL 2.3-4.7 L 604) Legal Billing Coordinator ID - BEN MPOCT-GLUCOSE [id number] 06:18:00 Test Item Value Reference Range Interpretation Comments POC-GLUCOSE METER 147 mg/dL 70-110 H : [facility] (BEAKER) (test code = [address]AN [address], 1538) [address]: Legal Billing Coordinator/Techni marielos ID = [id number] [facility] BLOOD GAS, [id number] 06:11:00 Test Item Value Reference Range Interpretation [...] 1819) 30.0 RAD, CHEST, 1 VIEW, NON [id number] 05:27:00Reason for exam:- >IntubatedShould this be performed at the bedside?->Yes [facility] : 1945 Sex: FFINALREPORT RAD, CHEST, 1 VIEW, NON DEPT INDICATION: Intubated COMPARISON: Prior day's exam FINDINGS: Portable frontal view [...] Stable contours.Additional findings: None. Signed: Ana Arreola [facility]ITALepboth[facility] Verified Date/Time: 12/29/2020 05:27:13 CT BRAIN WITHOUT IV CONTRAST - [id number] 03:09:00Unlisted Reason for Exam - Click Yes and Enter Reason Below->NoC[facility]IN[facility]A [facility]EMAN [facility]Name: [facility] ARE[facility]O : 1945 Sex: FFINALREPORT EXAM: CT BRAIN WITHOUT IV CONTRAST - PORTABLE INDICATION: Parenchymal hemorrhage, follow-up TECHNIQUE: CT images from skull base to vertex without IV contrast. This exam wasperformed according to the departmental dose optimization program which includes automated exposure control, adjustment of the mA and/or kV according to the patient size, and/or use of an iterative lele nstruction technique. COMPARISON: Exam from nine hours prior [...] Paranasal Sinuses: Predominantly clear Tympanomastoid Cavities: Clear. Other:None IMPRESSION:Post surgical changes status post right pterional craniotomy for right MCA bifurcation aneurysmal clipping and intracranial hematoma evacuation with moderate pneumocephalus. No change in 0.9 cm leftward midline shift. No new infarction or hemorrhage. Unchanged intraventricular hemorrhage and ventricle size. Signed: Danielle Espinal Verified Date/Time: 12/29/2020 03:09:55 CT brain without IV contrast portable 2020-12-29 03:09:00Interface, External Ris In - 12/29/2020 3:12 [...] of an iterative reconstruction technique. COMPARISON: Exam fromnine hours prior FINDINGS: Parenchyma: Postsurgical changes status post right pterional craniotomy for aneurysm clipping of the right MCA bifurcation aneurysm and evacuation of the hematoma centered atthe right anterior temporal lobe. Moderate postoperative pneumocephalus present overlying the right frontal convexity 1.9 cm in diameter with effacement of subjacent cerebral parenchyma. There is residu al subarachnoid blood within the right frontoparietal and [...] as above. Included Orbits: Normal Paranasal Sinuses: Pr edominantly clear Tympanomastoid Cavities: Clear. Other: None IMPRESSION:Post surgical changes status post right pterional craniotomy for right MCA bifurcation aneurysmal clipping and intracranial hematoma evacuation with moderate pneumocephalus. No change in 0.9 cm leftward midline shift. No new infarction or hemorrhage. Unchanged intraventricular hemorrhage and ventricle size. Signed: Danielle Espinal MDReport Verified Date/Time: 12/29/2020 03:09:55 [facility] HospitalMAGNESIUM2021-08-07 02:04:00 Test Item Value Reference Range Interpretation Comments MAGNESIUM (BEAKER) (test code = 1.7 mg/dL 1.6-2.6 627) Legal Billing Coordinator ID - BEN [id number] 02:04:00 Test Item Value Reference Range Interpretation Comments PHOSPHORUS (BEAKER) (test code = 1.7 mg/dL 2.3-4.7 L 604) Legal Billing Coordinator ID - BEN KEITH, ABDOMEN/KUB, 1 VIEW [id number] 00:20:00Reason for exam:->ngt placement [facility] : 1945 Sex: FFINALREPORT TECHNIQUE: Supine views of the abdomen. INDICATION: [...] CONCENTRATION Adequate (CELLAVISION)(BEAKER) (test code = 3438) Legal Billing Coordinator ID - Elizabeth Murray comments: Slide comments:COMPREHENSIVE METABOLIC [id number] 22:40:00 Test Item Value Reference Range Interpretation [...] 1092) DATA TO CALCULA TE ESTIMATED GFR. Legal Billing Coordinator ID - DBPT/[id number] 22:40:00 Test Item Value Reference Range Interpretation [...] mechanical heart valves.CBC W/PLT COUNT & AUTO [id number] 22:35:00 Test Item Value Reference Range Interpretation [...] 0-0 (BEAKER) (test code = 413) Prepare [id number] 20:43:00 Test Item Value Reference Range Interpretation Comments CROSSMATCH (test code = COMPATIBLE 2260) Unit ABO (test code = B Pos 4703158) UNIT NUMBER (test code = [id number] 934-0) Status (test code = RETURNED FROM ISSUE 8847510) Blood Bank Product (test RED BLOOD CELLS code = 2263) PRODUCT CODE (test code = M4878S43 933-2) [facility] DiegoHEMOGLOBIN [id number] 16:10:00 Test Item Value Reference Range Interpretation Comments HEMOGLOBIN A1C (BEAKER) (test code = 5.6 % 4.3-6.1 368) CBC W/PLT COUNT & AUTO [id number] 14:45:00 Test Item Value Reference Range Interpretation [...] CONCENTRATION Adequate (CELLAVISION)(BEAKER) (test code = 3438) Legal Billing Coordinator ID - Nola Diaz comments: Slide comments:SARS-COV2/RT-PCR ([facility])2020-12-28 14:15:00 Test Item Value Reference Range Interpretation Comments SARS-COV2/RT-PCR Negative Negative The SARS-Co V-2 target (test code = nucleic acids a re not 7068590) detected in thi s specimen. Negative result [...] This SARS CoV-2 test is a rapid, real-time RT-PC R test intended for th e qualitative detection [...] Food, Drug and Cosmetic Act, 21 U.S.C. 360bbb-3(b)(1), unless the authorization is terminated or revoked sooner. Fact Sheet for Healthcare Providers: https://www.[employer] m/Documents/Xpert%20Xpress%20SARS%20CoV-2/Fact%20Sheets/3023802%25OMQL-MSA-5%20 HEALTHCARE%20PROVIDERS%20FACT%20SHEET.pdf Fact Sheet for Healthcare Patients: https://www.[employer]/Documents/Xpert%20Xp ress%20SARS%20CoV-2/Fact%20Sheets/302-3801%75JFTE-JQC-6%20PATIENT%20FACT%20SHEET .pdfInsert Arterial [id number] 13:56:27PateNoah martin 12/28/2020 2:01 PMInsert Arterial Line Date/Time: 12/28/2020 1:57 PMPerformed by: Sukumar Segoviauthorized by: Maria Mercado MD Consent: Written consent obtained.Consent given by: spousePatient understanding: patient states understanding of the procedure being performedPatient consent: the patient's understanding of the procedure matches consent givenProcedure consent: procedure consent matches procedure scheduledRelevant documents: relevant documents present and verifiedTest results : test results available and properly labeledSite marked: the operative site was markedImaging studies: imaging studies not availablePatient identity confirmed: arm bandTime out: Immediately prior to procedure a "time out" was called to verify the correct patient, procedure, equipment, operations support analyst and site/side marked as required.Preparation: Patient was prepped and draped in the usual sterile fashion.Indications: multiple ABGs and hemodynamic monitoringLocation: left radial Sedation:Patient sedated: no Needle gauge: 20Number of attempts: 2 [facility] DiegoPhenytoin level, [id number] 13:37:00 Test Item Value Reference Range Interpretation Comments Phenytoin (test code = <0.5 10-20 L 3968-5) NETTIE (test code = NETTIE) Legal Billing Coordinator ID - DERRICK Wade Lab Interpretation (test Abnormal code = 61197-9) [facility] DiegoPHENYTOIN LEVEL, [id number] 13:37:00 Test Item Value Reference Range Interpretation Comments PHENYTOIN (DILANTIN) (BEAKER) (test < ug/mL 10.0-20.0 L code = 605) Legal Billing Coordinator ID - DERRICK DANIEL, [id number] 13:27:00 Test Item Value Reference Range Interpretation Comments ABO Grouping (test code = 2588) B Rh Factor (test code = 2589) POS [facility] DiegoBLOOD GAS, [id number] 12:49:00 Test Item Value Reference Range Interpretation [...] (test code = 1819) 30.0 CT, CTANGIO [id number] 11:32:00Ok to give contrast without Cr level.Unlisted Reason for Exam - Click Yes and Enter Reason Below->No [facility] : 1945 Sex: [address], CTANGIO BRAINBRAIN CT WITHOUT CONTRAST INDICATION: Subarachnoid hemorrhage (SAH) suspected COMPARISON: CT head of the same date TECHNIQUE:Rapid acquisition spiral imageswere obtained between the skull base and the [...] FINDINGS: CTA BRAIN:Saccular right M1-M2 bifurcation aneurysm witha neck measuring approximately 2 mm and base-dome measurement of 8 mm. The second small posteriorly projecting aneurysm measuring 3 mm base-dome, with an approximate 3mm neck of the distal right cavernous ICA adjacent to the ophthalmic artery origin (axial image 38; coronal image 40). Internal carotidarteries: Petrous, cavernous and supraclinoid portions patent. Middle cerebral arteries: Right M1 segment opacifies normally. The right M2 segments are "draped" around the previously described right temporal and parenchymal hematoma. Left MCA M1-M2 branches demonstrate normal contrast enhancement.Anterior cerebral arteries: Bilateral PABLO A1-A2 branches demonstrate normal contrast enhancement.Basilar s ystem: Normal contrast opacification of the vertebrobasilar system.Posterior cerebral arteries: Normal contrast opacification of the bilateral HOME LIGHTING ADVISER P1-P2 branches.Venous opacification: Major dural sinuses unremarkable for bolus timing.Additional findings: [...] to the ophthalmic artery origin. Signed: Ana Arreola MDReport Verified Date/Time: 12/28/2020 11:32:07 Reading Location: [address] Neuro Reading Room POCT-GLUCOSE [id number] 11:29:00 Test Item Value Reference Range Interpretation Comments POC-GLUCOSE METER 163 mg/dL 70-110 H : Notified RN/: (NAZARIO) (test code = TESTED AT [facility] 6720 1538) [facility], [id number]: Legal Billing Coordinator/Techni marielos ID = [id number] for EVANS ERAZO CT, BRAIN, WITHOUT [id number] 11:16:00Unlisted Reason for Exam - Click Yes and Enter Reason Below->No [facility] : 1945 Sex: FFINALREPORT CT, BRAIN, WITHOUT CONTRAST CLINICAL INDICATION: Cerebral hemorrhage suspected COMPARISON: None TECHNIQUE: Noncontrast axial CT imaging of the brain and skull. DOSE REDUCTION: Dose modulation, iterative reconstruction, and/or weight-based adjustment of the mA/kV was utilized to reduce the radiation dose to as low as reasonably achievable. FINDINGS:4.6 x 3.7 x 4.5 cm intrapa renchymal hematoma within the right temporal lobe with adjacent subarachnoid hemorrhage. Layering subdural hemorrhage along the right posterior frontal, temporal and occipital convexity measures up to 8 mm. There is associated mass effect with 9 mm leftward midline shift, leftward subfalcine and earlyuncal herniation. No hydrocephalus. Effacement of the right [...] lateral ventricle. No hydrocephalus. If there is persistent clinical concern for intracranial pathology, MR examination is recommended for further characterization. Signed: Ana Arreola MDReport Verified Date/Time: 12/28/2020 11:16:20 Reading Location: [facility] C013V Neuro Reading Room C METABOLIC [id number] 10:41:00 Test Item Value Reference Range Interpretation [...] 1092) DATA TO CALCULA TE ESTIMATED GFR. Legal Billing Coordinator ID - BSHEPATIC FUNCTION [id number] 10:37:00 Test Item Value Reference Range Interpretation [...] (test code = 29 U/L 6-55 347) Legal Billing Coordinator ID - BSProthrombin time/[id number] 10:25:00 Test Item Value Reference Interpretation Comments Range Protime (test code = 13.0 See_Comment [Autom ated 5902-2) message] The system which generated this result transmitted reference range : 11.9 - 14.2 seconds. The reference range was not used to interpret this result as normal/abnormal . INR (test code = 1.00 See_Comment [Automated 6301-6) message] The system which generated this result [...] valves. Lab Interpretation Normal (test code = 28433-9) [facility] [id number] 10:25:00 Test Item Value Reference Range Interpretation Comments PTT (test code = 29315-9) 22.9 See_Comment [ Automated message] The system angelcam generated this result transmitted ref erence range: 22.5 - 3 6.0 seconds. The re ference range was not u sed to interpret this result as normal/abnor mal. Lab Interpretation (test Normal code = 98347-0) [facility] DiegoPROTHROMBIN TIME/[id number] 10:25:00 Test Item Value Reference Range Interpretation Comments PROTIME (BEAKER) 13.0 seconds 11.9-14.2 (test code = 759) INR (BEAKER) (test 1.00 See_Comment [Automat ed message] code = 370) The system angelcam generated this result transmitted ref erence range: <=5.90. The reference range was not used to int erpret this result as normal/abnormal . RECOMMENDED COUMADIN/WARFARIN INR THERAPY RANGESSTANDARD DOSE: 2.0 - 3.0 Includes: PROPHYLAXIS for venous thrombosis, systemic embolization; TREATMENT for venous thrombosis and/or pulmonary embolus.HIGH RISK: Target INR is 2.5-3.5 for patients with mechanical heart valves.[id number] 10:25:00 Test Item Value Reference Range Interpretation Comments PARTIAL THROMBOPLASTIN TIME 22.9 seconds 22.5-36.0 (BEAKER) (test code = 760) RAD, CHEST, 1 VIEW, NON [id number] 09:47:00Reason for exam:- >IntubatedShould this be performed at the bedside?->Yes [facility] : 1945 Sex: FFINALREPORT RAD, CHEST, 1 VIEW, NON DEPT INDICATION: Intubated COMPARISON: Prior day's exam FINDINGS: Portable frontal view of the chest. IMPRESSION: Support Lines: Endotracheal tube projects over the proximal right main stem. The patient's nurse reports that the finding is known to the primary team and has been corrected. Lungs and pleura: Basilar subsegmental atelectasis at the left base. No pneumothorax.Heart and mediastinum: Unremarkable contours.Additional findings: None. Signed: JR Marietta, Leon Doherty Verified Date/Time: 12/28/2020 09:47:24 Reading Location: [facility] Radiology Reading Room OPHYSIOLOGY REPORT - [id number] 00:00:00Ordered by an unspecified provider.[facility] DiegoNEUROPHYSIOLOGY REPORT - [id number] 00:00:00Ordered by an unspecified provider.[facility] NEUROPHYSIOLOGY REPORT - [id number] 00:00:00Ordered by an unspecified provider.[facility] Diego[facility]UROPHY[facility]OLOG[facility] REPORT - [id number] 00:00:00Ordered by an unspecified provider.[facility] NEUROPHYSIOLOGY REPORT - [id number] 00:00:00Ordered by an unspecified provider.[facility] DiegoNEUROPHY[facility]OLOG[facility] REPORT - [id number] 00:00:00Ordered by an unspecified provider.[facility] NEUROPHYSIOLOGY REPORT - [id number] 00:00:00Ordered by an unspecified provider.[facility] Diego[facility]UROPHY[facility]OLOG[facility] REPORT - [id number] 00:00:00Ordered by an unspecified provider.[facility] NEUROPHYSIOLOGY REPORT - [id number] 00:00:00Ordered by an unspecified provider.[facility] DiegoNEUROPHY[facility]OLOG[facility] REPORT - [id number] 00:00:00Ordered by an unspecified provider.[facility] [id number] 00:00:00Ordered by an unspecified provider.[facility]
[2021-12-31] MEDS ORDERED: NA CHLORIDE 0.9% 500 ML ONE (09:16)
[2021-12-31 09:38] LABS: Absolute Lymphocytes (CBC) 2.2 K/uL (0.7-4.9); Hematocrit 37.3 % (36.0-45.0); Lymphocytes % 23.5 % (15.3-44.8); MCV 90.1 fL (80-100); MPV 6.6 fL (7.6-11.3); RBC Red Blood Cell Count 4.14 M/uL (3.86-4.86)
[2021-12-31 09:51] LABS: Albumin 2.9 g/dL (3.4-5.0); Bilirubin Total 0.5 mg/dL (0.2-1.0); Potassium 3.6 mmol/L (3.5-5.1); Protein, Total 7.4 g/dL (6.4-8.2)
--- NOTE | 2021-12-31 10:26 | RAD REPORT ---
EXAM DESCRIPTION: RAD - Chest Single View - 12/31/2021 10:17 am CLINICAL HISTORY: FEVER COMPARISON: Chest Single View dated 12/28/2020 FINDINGS: Lines: None. Lungs: Increased hazy opacities in the right lung. Pleural: No significant pleural effusions or pneumothorax. Cardiac: The heart size is within normal limits. Bones: No acute fractures. Other: IMPRESSION: Increased hazy airspace disease in the right lung could reflect asymmetric edema or infe ction.
--- NOTE | 2021-12-31 10:43 | RAD REPORT ---
EXAM DESCRIPTION: CTAbdomen Pelvis W Contrast - 12/31/2021 10:28 am CLINICAL HISTORY: abdominal pain COMPARISON: No comparisons TECHNIQUE: CT of the abdomen and pelvis was performed with contrast. All CT scans are performed using dose optimization technique as appropriate and may include automated exposure control or mA/KV adjustment according to patient size. FINDINGS: Lower chest: Dependent atelectasis. Liver: No acute abnormality or suspicious lesions. Biliary: No biliary ductal dilatation. Stomach: The gastrostomy tube has been retracted into the soft tissues of the abdominal wall. No port ion of the tube is identified within the stomach. Duodenum: No significant focal abnormality. Pancreas: No significant abnormality. Spleen: No significant abnormality. Adrenal: No suspicious lesions. Kidney/ureter: No hydronephrosis. Too small to characterize and/or benign appearing renal lesions are noted. Retroperitoneum: No retroperitoneal adenopathy. Vascular: No aneurysm. Bowel: Large rectal stool burden.. Peritoneum: No ascites or free air. Bladder: Grossly unremarkable. Reproductive: No adnexal masses. Bones: No acute fracture. Other: n/a IMPRESSION: 1. The gastrostomy tube including the balloon/bumper are retracted into the soft tissues of the abdominal wall. 2. Large rectal stool burden may indicate fecal impaction.
[2021-12-31] MEDS ORDERED: LIDOCAINE VISCOUS 2% SOLN 15 ML UDC ONE (11:03)
--- NOTE | 2021-12-31 11:49 | RAD REPORT ---
EXAM DESCRIPTION: RAD - ENTEROSTOMY TUBE CHECK W/CONTR - 12/31/2021 11:43 am CLINICAL HISTORY: gastrostomy tube replaced COMPARISON: Abdomen Pelvis W Contrast dated 12/31/2021 FINDINGS/IMPRESSION: Enteric contrast confirms the presence of the gastrostomy tube and balloon with in the stomach.
[2021-12-31 12:12] LABS: Urine Blood 2+ (Negative); Urine Glucose Negative (Negative); Urine Protein Negative (Negative); Urine Specific Gravity 1.015 (1.005-1.030); Urine pH 7.5 (5.0-7.0)
[2021-12-31 12:21] LABS: Urine Bacteria >50 /HPF (<20)
[2021-12-31] MEDS ORDERED: CEFTRIAXONE 1000 MG/VIAL ONE (12:56)
[2021-12-31] MEDS ORDERED: NA CHLORIDE 0.9% 100 ML ONE (12:56)
--- NOTE | 2021-12-31 15:26 | ER ---
Nurse's Notes [facility] Name: Georgina Chacko Age: 76 yrs Sex: Female : 1945 Arrival Date: 12/31/2021 Time: 08:47 Bed 5 Private MD: Diagnosis: Fecal impaction;UTI/ Urinary tract infection, site not specified;Gastrostomy complication, unspecified Presentation: 12/31 08:49 Chief complaint: EMS states: Home health nurse advised family to call EMS for fever, ph also stated that pt's G-tube site looked infected and that pt has not had a BM in a few days. Pt aphasic w/ minimal, garbled speech r/t previous CVA, afebrile for EMS, all VSS. Coronavirus screen: Vaccine status: Patient reports receiving the 1st dose of the Covid vaccine. Ebola Screen: No symptoms or risks identified at this time. Initial Sepsis Screen: Does the patient meet any 2 criteria? No. Patient's initial sepsis screen is negative. Does the patient have a suspected source of infection? No. Patient's initial sepsis screen is negative. Risk Assessment: Do you want to hurt yourself or someone else? Patient reports no desire to harm self or others. Onset of symptoms was December 31, 2021. 08:49 Method Of Arrival: EMS: [facility] 08:49 Acuity: INESSA 3 ph Triage Assessment: 08:52 General: Appears in no apparent distress. comfortable, Behavior is calm, cooperative. ph Pain: Denies pain. Neuro: Level of Consciousness is awake, alert, Oriented to person, unable to fully assess orientation d/t aphasia. Cardiovascular: Capillary refill < 3 seconds in bilateral fingers Patient's skin is warm and dry. Respiratory: Airway is compromised Respiratory effort is even, unlabored, Respiratory pattern is regular, symmetrical. GI: Abdomen is non-distended, PEG tube in place. Derm: Skin is pink, warm \T\ dry. Musculoskeletal: L sided deficits r/t previous CVA, pt bed bound. Historical: - Allergies: 08:52 No Known Allergies; ph - PMHx: 08:52 CVA; HTN; ph - Immunization history:: Adult Immunizations unknown. - Social history:: Smoking status: Patient denies any tobacco usage or history of. Screenin:54 Abuse screen: Denies threats or abuse. Denies injuries from another. Nutritional ph screening: No deficits noted. Tuberculosis screening: No symptoms or risk factors identified. Fall Risk None identified. Assessment: 09:00 General: SEE TRIAGE NOTE. bp 11:50 Reassessment: Patient appears in no apparent distress at this time. Patient and/or ph family updated on plan of care and expected duration. Pain level reassessed. Straight cath preformed to obtain urine sample. 12:58 Reassessment: No changes from previously documented assessment. Patient and/or family bp updated on plan of care and expected duration. Pain level reassessed. 14:19 Reassessment: Patient appears in no apparent distress at this time. Patient and/or ph family updated on plan of care and expected duration. Pain level reassessed. 16:34 Reassessment: Patient appears in no apparent distress at this time. Patient and/or ph family updated on plan of care and expected duration. Pain level reassessed. [facility] at bedside to transport pt home, dressing and foam tape placed to g-tube prior to d/c. Vital Signs: 08:49 BP 126 / 85; Pulse 68; Resp 18; Temp 98.9; Pulse Ox 100% on R/A; Weight 63.5 kg; ph 09:23 BP 119 / 77; Pulse 80; Resp 16; Pulse Ox 94% ; bp 12:58 BP 112 / 61; Pulse 87; Resp 16; Pulse Ox 99% ; bp 14:18 BP 116 / 65; Pulse 73; Resp 18; Pulse Ox 98% on R/A; ph 15:30 BP 118 / 70; Pulse 72; Resp 18; Temp 98.0; Pulse Ox 99% on R/A; ph 16:35 BP 114 / 66; Pulse 75; Resp 16; Pulse Ox 99% on R/A; ph ED Course: 08:47 Patient arrived in ED. ph 08:49 David Whitt PA is PHCP. cp 08:49 David Gutierrez MD is Attending Physician. cp 08:51 Triage completed. ph 08:52 Arm band placed on Patient placed in an exam room, on a stretcher, on pulse oximetry. ph 08:54 Prosper Schmidt, HARINI is Primary Nurse. bp 08:54 Patient has correct armband on for positive identification. Bed in low position. Call ph light in reach. Side rails up X 1. Pulse ox on. NIBP on. Door closed. Noise minimized. Warm blanket given. 09:15 Inserted saline lock: 20 gauge in right antecubital area, using aseptic technique. bp Blood collected. 10:18 XRAY Chest (1 view) In Process Unspecified. EDMS 10:30 CT Abd/Pelvis - IV Contrast Only In Process Unspecified. EDMS 11:09 SWETHA Valencia at bedside to replace G-tube, 20 Fr G tube placed. ph 11:44 PEG Tube Check w/contrast In Process Unspecified. EDMS 11:50 Straight cath inserted, using sterile technique, 16 Fr. Specimen obtained. Returned ph clear yellow urine. Patient tolerated well. 12:06 Repositioned patient. Cleaned of incontinence. Linen changed. ph 16:16 Cleaned of incontinence. jw7 16:32 IV discontinued, intact, bleeding controlled, No redness/swelling at site. Pressure ph dressing applied. Administered Medications: 09:15 Drug: NS 0.9% 500 ml Route: IV; Rate: 100 ml/hr; Site: right antecubital; bp 10:45 Follow up: Response: No adverse reaction; IV Status: Completed infusion; IV Intake: ph 500ml 12:35 Drug: Lactulose 30 grams Volume: 45 ml; Route: PO; ph 16:30 Follow up: Response: No adverse reaction ph 12:45 Drug: Rocephin - (cefTRIAXone) 1 grams Route: IVPB; Infused Over: 30 mins; Site: right bp antecubital; 13:15 Follow up: Response: No adverse reaction; IV Status: Completed infusion; IV Intake: 50mlph 16:30 Not Given (Other Intervention Used): Fleet Enema (sodium phosphate) 133 ml IN once; may ph repeat once Medication: 08:55 VIS not applicable for this client. ph Intake: 10:45 IV: 500ml; Total: 500ml. ph 13:15 IV: 50ml; Total: 550ml. ph Outcome: 15:25 Discharge ordered by . cp 16:31 Discharged to home via ambulance. ph 16:31 Condition: good 16:31 Discharge instructions given to family, Instructed on discharge instructions, follow up and referral plans. medication usage, Demonstrated understanding of instructions, follow-up care, medications, Prescriptions given X 2. 16:35 Patient left the ED. ph Signatures: Dispatcher [employer] EDMonika Myles RN RN ph David Whitt PA PA cp Peltier, Brian, RN RN Loretta Jauregui [email or web address]
--- NOTE | 2021-12-31 15:26 | EDPHYS ---
Physician Documentation [facility] Name: Georgina Chacko Age: 76 yrs Sex: Female : 1945 Arrival Date: 12/31/2021 Time: 08:47 Bed 5 Private MD: ED Physician David Gutierrez HPI: 12/31 08:55 This 76 yrs old Female presents to ER via EMS with complaints of Fever. cp 08:55 The patient reports fever, that was measured at 100.9 degrees Fahrenheit. Onset: The cp symptoms/episode began/occurred yesterday. Associated signs and symptoms: Pertinent positives: abdominal pain, constipation. Historical: - Allergies: 08:52 No Known Allergies; ph - PMHx: 08:52 CVA; HTN; ph - Immunization history:: Adult Immunizations unknown. - Social history:: Smoking status: Patient denies any tobacco usage or history of. ROS: 09:00 Constitutional: Negative for fever. cp 09:00 Eyes: Negative for injury, pain, redness, and discharge. cp 09:00 Cardiovascular: Negative for chest pain. 09:00 Respiratory: Negative for cough, wheezing. 09:00 Abdomen/GI: Positive for abdominal pain, constipation, Negative for vomiting, diarrhea, black/tarry stool, rectal bleeding. 09:00 Neuro: Negative for altered mental status, headache. 09:00 All other systems are negative. Exam: 09:05 Constitutional: The patient appears in no acute distress, alert, awake, cp non-diaphoretic, non-toxic, well developed, well nourished. 09:05 Head/Face: Normocephalic, atraumatic. cp 09:05 Eyes: Periorbital structures: appear normal, Conjunctiva: normal, no exudate, no injection, Sclera: no appreciated abnormality, Lids and lashes: appear normal, bilaterally. 09:05 ENT: External ear(s): are unremarkable, Ear canal(s): are normal, clear, TM's: dullness, bilaterally, Nose: is normal, Mouth: Lips: moist, Oral mucosa: pink and intact, moist, Posterior pharynx: Airway: no evidence of obstruction, patent. 09:05 Neck: ROM/movement: is normal, is supple, without pain, no range of motions limitations, no meningismus. 09:05 Chest/axilla: Inspection: normal. cp 09:05 Cardiovascular: Rate: normal, Rhythm: regular, Edema: is not appreciated, JVD: is not appreciated. 09:05 Respiratory: the patient does not display signs of respiratory distress, Respirations: normal, no use of accessory muscles, no retractions, labored breathing, is not present, Breath sounds: are clear throughout, no decreased breath sounds, no stridor, no wheezing. 09:05 Abdomen/GI: Inspection: gastrostomy tube located LUQ abdomen, Bowel sounds: active, all quadrants, Palpation: soft, in all quadrants, mild abdominal tenderness, in the left upper quadrant and left lower quadrant, rebound tenderness, is not appreciated, voluntary guarding, is elicited in the left upper quadrant and left lower quadrant. 09:05 : Rectal exam: Stool: soft, green. 09:05 Musculoskeletal/extremity: Extremities: noted in the left arm and left leg: partially contracted. 09:05 Skin: cellulitis, is not appreciated, no rash present. 09:05 Neuro: Orientation: no acute changes, per family, Mentation: no acute changes, per family. Vital Signs: 08:49 BP 126 / 85; Pulse 68; Resp 18; Temp 98.9; Pulse Ox 100% on R/A; Weight 63.5 kg; ph 09:23 BP 119 / 77; Pulse 80; Resp 16; Pulse Ox 94% ; bp 12:58 BP 112 / 61; Pulse 87; Resp 16; Pulse Ox 99% ; bp 14:18 BP 116 / 65; Pulse 73; Resp 18; Pulse Ox 98% on R/A; ph 15:30 BP 118 / 70; Pulse 72; Resp 18; Temp 98.0; Pulse Ox 99% on R/A; ph 16:35 BP 114 / 66; Pulse 75; Resp 16; Pulse Ox 99% on R/A; ph MDM: 08:52 Patient medically screened. cp 09:00 Differential diagnosis: viral Infection, bacterial infection, bronchitis, pneumonia cp UTI, gastroenteritis, meningitis. 15:25 Data reviewed: vital signs, nurses notes, lab test result(s), radiologic studies, CT cp scan, plain films. 15:25 Test interpretation: by ED physician or midlevel provider: plain radiologic studies. cp Counseling: I had a detailed discussion with the patient and/or guardian regarding: the historical points, exam findings, and any diagnostic results supporting the discharge/admit diagnosis, lab results, radiology results, the need for outpatient follow up, an oracle engineer, to return to the emergency department if symptoms worsen or persist or if there are any questions or concerns that arise at home. Response to treatment: the patient's symptoms have markedly improved after treatment, and as a result, I will discharge patient. ED course: Patient with observed large bowel movement while in ED. Will discharge to home for continued monitoring. 12/31 08:52 Order name: CBC with Diff; Complete Time: 10:08 cp 12/31 10:08 Interpretation: Normal except: MPV 6.6. cp 12/31 08:52 Order name: CMP; Complete Time: 10:08 cp 12/31 10:09 Interpretation: Normal except: NA 131; CL 97; GLUC 189; AST 55; ALK 134; A/G 0.6; GLOB cp 4.5; ALB 2.9; CA 8.3. 12/31 08:52 Order name: Lipase; Complete Time: 10:08 cp 12/31 08:52 Order name: Urine Microscopic Only; Complete Time: 12:27 cp 12/31 08:52 Order name: Influenza Screen (a \\T\\ B); Complete Time: 10:08 cp 12/31 08:52 Order name: COVID-19 SARS RT PCR (Document "Date of Onset" if Symptomatic); Complete cp Time: 12:27 12/31 08:52 Order name: CT Abd/Pelvis - IV Contrast Only; Complete Time: 10:48 cp 12/31 08:52 Order name: XRAY Chest (1 view); Complete Time: 10:35 cp 12/31 11:08 Order name: PEG Tube Check w/contrast; Complete Time: 12:27 cp 12/31 12:12 Order name: Urine Dipstick-Ancillary; Complete Time: 12:27 EDMS 12/31 12:24 Order name: Urine Culture EDSD 12/31 08:52 Order name: IV Saline Lock; Complete Time: 09:20 cp 12/31 08:52 Order name: Labs collected and sent; Complete Time: 09:20 cp 12/31 08:52 Order name: Urine Dipstick-Ancillary (obtain specimen); Complete Time: 12:07 cp 12/31 08:52 Order name: Cath; Complete Time: 12:07 cp Administered Medications: 09:15 Drug: NS 0.9% 500 ml Route: IV; Rate: 100 ml/hr; Site: right antecubital; bp 10:45 Follow up: Response: No adverse reaction; IV Status: Completed infusion; IV Intake: ph 500ml 12:35 Drug: Lactulose 30 grams Volume: 45 ml; Route: PO; ph 16:30 Follow up: Response: No adverse reaction ph 12:45 Drug: Rocephin - (cefTRIAXone) 1 grams Route: IVPB; Infused Over: 30 mins; Site: right bp antecubital; 13:15 Follow up: Response: No adverse reaction; IV Status: Completed infusion; IV Intake: 50mlph 16:30 Not Given (Other Intervention Used): Fleet Enema (sodium phosphate) 133 ml DE once; september ph repeat once Disposition Summary: 12/31/21 15:25 Discharge Ordered Location: Home cp Problem: new cp Symptoms: have improved cp Condition: Stable cp Diagnosis - Fecal impaction cp - UTI/ Urinary tract infection, site not specified cp - Gastrostomy complication, unspecified cp Followup: cp - With: Private Physician - When: 2 - 3 days - Reason: Recheck today's complaints Discharge Instructions: - Discharge Summary Sheet cp - Constipation, Adult cp - Urinary Tract Infection, Adult cp - Fecal Impaction cp - PEG Tube Home Guide cp Forms: - Medication Reconciliation Form cp - Thank You Letter cp - Antibiotic Education cp - Prescription Opioid Use cp Prescriptions: - Miralax - take 1 application by G-TUBE route once daily for 7 days; 1 bottle; Refills: 0, cp Product Selection Permitted - cefpodoxime 200 mg Oral Tablet - take 1 tablet by ORAL route every 12 hours for 7 days with food; 14 tablet; cp Refills: 0, Product Selection Permitted Signatures: Dispatcher [employer] Monika Parks RN RN ph David Whitt PA PA cp Prosper Schmidt RN RN bp
[2021-12-31 18:14] VITALS: TEMP 98; O2SAT 99
[2021-12-31 18:16] VITALS: BP 114/66
== END 2021-12-31 16:35 | disposition home or self-care (01) ==
LOC: ER 08:40
DX: N39.0 Urinary tract infection, site not specified (principal); K56.41 Fecal impaction; K94.20 Gastrostomy complication, unspecified; I10 Essential (primary) hypertension; Z20.822 Contact with and (suspected) exposure to COVID-19; Z86.73 Personal history of transient ischemic attack (TIA), and cerebral infarction without residual deficits
CPT/HCPCS: 87088; 85025; 87086; 36415; 83690; 80053; 87804 ×2; 74177; 71045; 49465; U0003; Q9967; J7040; 81003; 81015

== ENCOUNTER 2022-02-06 20:08 | Emergency (ER) | payer OTHER ==
--- OUTSIDE RECORDS SUMMARY | 2022-02-06 20:19 | XMS REPORT | Continuity of Care Document ---
:1945 Author Organization [facility] t Address [address] [place] [address] Care Team Providers Name Role Phone KATHERINE LIVINGSTON Primary Care Physician Unavailable HERACLIO DAVILA Attending Clinician Unavailable ADAM RODAS Attending Clinician Unavailable Adam Early Attending Clinician Servando SCHULER, Mariah Wade Attending Clinician NOVA DAMON Attending Clinician Unavailable Marcelino Heredia MD Attending Clinician Nova Damon DO Attending Clinician Perry RODRIGUEZ, Maury Kamara Attending Clinician Lidia RODRIGUEZ, Miri Cardenas Attending Clinician Araceli RODRIGUEZ, Fei Serna Attending Clinician Henny García CRNA Attending Clinician [phone] Staci RODRIGUEZ, Nathan Jarvis Attending Clinician Virtual, Surgeon Attending Clinician Unavailable Pcp , No Attending Clinician Unavailable Stefan Jose MD Attending Clinician Ava Whitt MD Attending Clinician HERACLIO DAVILA Admitting Clinician Unavailable NOVA DAMON Admitting Clinician Unavailable Nova Damon DO Admitting Clinician Payers Payer Name Policy Type Policy Number Effective Date Expiration Date S sherita [facility] HMO OS [id number] 2020 00:00:00 WELLMED/AARP [id number] 2021 MEDICARE ADVANTAGE 00:00:00 DEVOTED HEALTH [id number] 2021 (MEDICARE 00:00:00 REPLACEMENT HMO) Problems Condition Condition Condition Status Onset Resolution Last Treating Co mments Source Name Details Category Date Date Treatment Clinician Date Vomiting, Vomiting, Disease Active Uni vers intractabi intractabi 01-21 it y of lity of lity of 00:00: [place] vomiting vomiting 00 Medica l not not Branch specified, specified, presence presence of nausea of nausea not not specified, specified, unspecifie unspecifie d vomiting d vomiting type type Respirator Respirator Disease Active [facility]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 12-29ke s 00:00: Medical 00 Center Hypertensi Hypertensi Disease Active [facility] on on 12-29 00:00: Medical 00 [place] Acute on Acute on Disease [facility] chronic chronic 12-29 anemia anemia 00:00: Medical 00 [place] Midline Midline Disease Active [facility] shift of shift of 12-29 brain due brain due 00:00: Medi samina to to 00 Center hematoma hematoma Unresponsi Unresponsi Disease Active [facility] ve ve 12-29kes 00:00: Medical 00 Center SAH SAH Disease Active [facility] (subarachn (subarachn 12-29 Yin kes oid oid 00:00: Medical hemorrhage hemorrhage 00 Ce nter ) ) Acute Acute Disease Active [facility] respirator respirator 12-29 kes y y 00:00: Medical alkalosis alkalosis 00 Cent er Hypovolemi Hypovolemi Disease Active [facility] shock c shock 12-29 [facility] 00:[facility] Center Intracrani Intracrani Disease Active [facility] al 12-28 [facility] hemorrhage hemorrhage 00:00: Me dical 00 Center Allergies, Adverse Reactions, Alerts Allergy Allergy Status Severity Reaction(s) Onset Inactive Treating Comm ents Source Name Type Date Date Clinician NO KNOWN Allergy [facility] Drug Active [facility] ALLERGIE Class ity of S [facility] Social History Social Habit Start Date Stop Date Quantity Comments Source History SDOH [facility] Alcohol Std Medical Cente r Drinks History SDOH [facility] Alcohol Binge Medical Zainab ter History SDOH [facility] Alcohol Comment Medical C enter Exposure to 2022-01-14 2022-01-24 Not sure [facility] SARS-CoV-2 00:00:00 08:21:00 [facility] (event) Branch Alcohol intake 2021-01-14 2021-01-[address] [facility] 00:00:00 00:00:00 non-drinker Medical Cente r (finding) Tobacco use and 2020-12-28 2020-12-[address] Yin kes exposure 00:00:00 00:00:00 Medical Center History SDOH 2020-12-28 2020-12-[address] [facility] Alcohol Frequency 00:00:00 00:00:00 [facility] Sex Assigned At [address] [address] Yin kes 00:00:00 00:00:00 [facility] Smoking Status Start Date Stop Date Source Tobacco smoking consumption [facility] Branch Never smoker [facility] Medications Ordered Filled Start Stop Current Ordering Indication Dosage Frequency Signature Comments Components Source Medication Medication Date Date Medication? Clinician (SIG) Name Name NaCl 0.9% 2021- No 1000mL at 999 Uni vers (NS) bolus 01-24 0902 mL/hr, ity of infusion 15:00: 16:03 1,000 mL, [place] 1,000 mL 00 :00 IV Medical Infusion, Branch ONCE, 1 dose, On Thu01/24/22 at 1000, STAT ondansetron 2021- No 4mg 4 mg, Slow Univers (ZOFRAN 9-02 09-02 IV Push, ity of (PF)) 14:00: 14:20 ONCE, 1 [place] injection 4 00 :00 dose, On Medi samina mg 01/24/22 Branch at 0900, SYLVIA bisacodyL 2021- Yes [id number] 10mg Insert 1 Univers 10 mg 01-24 Suppositor ity of suppository 00:00: 04:59 y into [place] 00 :00 rectum in [facility] morning for 30 days. amLODIPine 2021- Yes [id number] 10mg Take 1 Univers 10 mg 01-24 tablet by ity of tablet 00:00: 04:59 mouth in [place] 00 :00 [facility] for 30 days. bisacodyL 2021- Yes [id number] 10mg Insert 1 Univers 10 mg 01-24 Suppositor ity of suppository 00:00: 04:59 y into [place] 00 :00 rectum in [facility] morning for 30 days. amLODIPine 2021- Yes [id number] 10mg Take 1 Univers 10 mg 01-24 tablet by ity of tablet 00:00: 04:59 mouth in [place] 00 :00 [facility] for 30 days. bisacodyL 2021- Yes [id number] 10mg Insert 1 Univers 10 mg 01-24 Suppositor ity of suppository 00:00: 04:59 y into [place] 00 :00 rectum in [facility] morning for 30 days. amLODIPine 2021- Yes [id number] 10mg Take 1 Univers 10 mg 01-24 tablet by ity of tablet 00:00: 04:59 mouth in [place] 00 :00 [facility] for 30 days. amLODIPine Yes 10mg 10 mg, Unive rs (NORVASC) 01-23 Oral, ity of tablet 10 14:00: DAILY, [place] mg 00 First dose Medical (after Branch last modificati on) on Bharati 01/23/22 at 0900, Until Discontinu ed, Routine thiamine Yes 100mg Take 100 Univ ers (VITAMIN 9- mg by ity of B-1) 100 mg 12:59: mouth in [place] tablet 28 the Medical morning. Branch Vitamin 2022-0 Yes 1000ug Take 1,000 Un tania B-12 1,000 9-01 mcg by ity of mcg tablet 12:59: mouth in [place] 28 the Medical morning. Branch foLIC acid 202-0 Yes 1mg Take 1 mg Un tania 1 mg tablet 01-23 by mouth ity of 12:59: in the [place] 28 morning. Medical Branch thiamine 2022-0 Yes 100mg Take 100 Univ ers (VITAMIN 9-01 mg by ity of B-1) 100 mg 12:59: [place] tablet 28 the Medical morning. Branch Vitamin 2022-0 Yes 1000ug Take 1,000 Un tania B-12 1,000 9-01 mcg by ity of mcg tablet 12:59: mouth in [place] 28 the Medical morning. Branch foLIC acid 2021-0 Yes 1mg Take 1 mg Un tania 1 mg tablet 01-23 by mouth ity of 12:59: in the [place] 28 morning. Medical Branch thiamine 2-0 Yes 100mg Take 100 Univ ers (VITAMIN 9-01 mg by ity of B-1) 100 mg 12:59: [place] tablet 28 the Medical morning. Branch Vitamin 2022-0 Yes 1000ug Take 1,000 Un tania B-12 1,000 9-01 mcg by ity of mcg tablet 12:59: mouth in [place] 28 the Medical morning. Branch foLIC acid 2021-0 Yes 1mg Take 1 mg Un tania 1 mg tablet 01-23 by mouth ity of 12:59: in the [place] 28 morning. Medical Branch amLODIPine 2021-0 2021- No 5mg Take 5 mg U nivers 5 mg tablet 01-23 by mouth ity of 10:26: 00:00 in the [place] 52 :00 morning. Medical Daughter Branch gives it to patient by mouthPatie nt's gives it to patient through PEG tube amLODIPine 2021-0 2021- No 5mg 5 mg, Unive rs (NORVASC) 01-23 Oral, ity of tablet 5 mg 02:15: 01:43 ONCE, 1 [place] 00 [place] dose, On Medical Wed Branch 01/22/22 at 2115, Routine hydrALAZINE 2021-0 Yes 10mg 10 mg, Univ ers (APRESOLINE 01-23 Oral, ity of ) tablet 10 01:18: Q6HPRN, [place] mg 11 Starting Medical on Thu01/22/22 at 2018, Until Discontinu ed, Routine, FOR SBP > 160, DBP > 100. potassium 2021- No 10meq 10 mEq, IV Univers chloride in 01-22 Piggyback, i ty of water 10 14:30: 18:58 Q1H, 4 [place] mEq/100 mL 00 :16 doses, Medical RTU 10 mEq First dose [facility] on Thu01/22/22 at 0930, Last dose on Thu01/22/22 at 1200, Administer over 60 Minutes, 100 mL bisacodyL Yes 10mg 10 mg, Univer s (DULCOLAX) 01-22 Rectal, ity of suppository 14:00: DAILY, [place] 10 mg 00 First dose Medical on Thu01/22/22 at 0900, Until Discontinu ed, Routine amLODIPine 2021- No 5mg 5 mg, Unive rs (NORVASC) 01-22 Oral, ity of tablet 5 mg 14:00: 01:21 DAILY, [place] 00 :15 First dose Medical on Thu01/22/22 at 0900, Until Discontinu ed, Routine amLODIPine 2021- No 5mg 5 mg, Unive rs (NORVASC) 01-22 Enteral, ity o f tablet 5 mg 03:45: 02:56 ONCE, 1 [place] dose, On Medical Thu01/21/22 at 2245, Routine enoxaparin Yes 40mg 40 mg, Unive rs (LOVENOX) 01-21 Subcutaneo ity of injection 22:00: [place], DAILY, [place] 40 mg 00 First dose Medical on Thu01/21/22 at 1700, Until Discontinu ed, Routine ondansetron Yes 4mg 4 mg, Slow Univers (ZOFRAN 8-30 IV Push, ity of (PF)) 21:08: Q6HPRN, [place] injection 4 02 Starting Medi samina mg on Thu01/21/22 at 1608, Until Discontinu ed, Routine, Nausea and Vomiting (N/V) acetaminoph Yes 650mg 650 mg, Un tania en 01-21 Oral, ity of (TYLENOL) 21:07: Q6HPRN, [place] tablet 650 15 Starting Medic al mg on Thu01/21/22 at 1607, Until Discontinu ed, Routine, Pain (scale 1-3) NaCl 0.9% Yes 1000mL at 100 Univ ers (NS) IV 8-30 mL/hr, ity of infusion 18:30: Intravenou [place] 1,000 mL 00 s, Medical CONTINUOUS Branch , Starting on Thu01/21/22 at 1330, Until Discontinu ed, Routine cefTRIAXone 2021- No 1000mg 1,000 mg, Univers (ROCEPHIN) 01-21 IV ity of 1,000 mg in 17:15: 17:55 Piggyback, [place] NaCl 0.9% 00 :00 ONCE, 1 Medical (NS) 50 mL dose, On Bran h MINI-BAG 01/21/22 at 1215, Administer over 30 Minutes, 50 mL
Reas on for Anti-Infec tive: Documented Infection< br>Documen alexandre Infection Site: Urine<br&g t;Duration of Therapy: Other (see Comments) iopamidol 2021- No [id number] 60mL 60 mL, Univers (ISOVUE 01-2130 Intravenou ity o f 370-500 mL) 16:10: 16:11 s, ONCE, 1 [place] injection 00 :00 dose, On Medica l 60 mL Thu01/21/22 at 1130, Routine cyanocobala Yes 100ug QD Take [address] [facility] min, 8-28 tablet [facility] vitamin 00:00: (100 mcg Medica l B-12, 100 00 total) by Cente r MCG tablet mouth daily. thiamine Yes 100mg QD Take [address] 100 MG 8-28 tablet [facility] tablet 00:00: (100 mg Medical 00 total) by Center mouth daily. cyanocobala Yes 100ug QD Take [address] [facility] min, 8-28 tablet [facility] vitamin 00:00: (100 mcg Medica l B-12, 100 00 total) by Cente r MCG tablet mouth daily. thiamine 2020-0 Yes 100mg QD Take [address] 100 MG - tablet [facility] tablet 00:00: (100 mg Medical 00 total) by Center mouth daily. levoFLOXaci 2020-0 2020- No 750mg QD Take [address] n 01-19 tablet [facility] (LEVAQUIN) 00:00: 00:00 (750 mg Med ical 750 MG 00 :00 total) by Center tablet mouth daily for 5 days. amLODIPine 0 2020- No hypertensio 5mg QD Take [address] (NORVASC) 5 01-18 n by mouth [place] MG tablet 09:26: 00:00 daily. Medic al 23 :00 Center folic acid 0 Yes 1mg QD Take 1 [facility] t (FOLVITE) 1 - tablet (1 [place] MG tablet 00:00: mg total) Med ical 00 by mouth Center daily. levETIRAcet 0 Yes 500mg Q.5D 5 mLs ([address] am (KEPPRA) 8-27 mg total) [place] 500 mg/5 mL 00:00: by Feed Med ical (5 mL) Soln 00 Tube route Ce nter oral 2 (two) solution times daily. niMODipine 0 Yes 60mg Take 2 [facility] t (NIMOTOP) 8-27 capsules [facility] 30 MG 00:00: (60 mg Medical capsule 00 total) by Center mouth every 4 (four) hours. folic acid 0 Yes 1mg QD Take 1 [facility]I [facility] t (FOLVITE) 1 8- tablet (1 [place] MG tablet 00:00: mg total) Med ical 00 by mouth Center daily. levETIRAcet 2020-0 Yes 500mg Q.5D 5 mLs ([address] am (KEPPRA) 8-27 mg total) [place] 500 mg/5 mL 00:00: by Feed Med ical (5 mL) Soln 00 Tube route Ce nter oral 2 (two) solution times daily. niMODipine 2020-0 Yes 60mg Take 2 CHI S t (NIMOTOP) 8-27 capsules [facility] 30 MG 00:00: (60 mg Medical capsule 00 total) by Center mouth every 4 (four) hours. modafiniL 2020- No Take 1 [facility]I S t (PROVIGIL) 01-18 09-10 tablet [facility] 200 MG 00:00: 23:59 (200 mg Medical tablet 00 :00 total) by Center mouth daily for 7 days, THEN 0.5 tablets (100 mg total) daily for 7 days. Max Daily Amount: 200 mg. levETIRAcet Yes [facility] am (KEPPRA) 01-15 [facility] 100 mg/mL 00:00: Medical solution 00 Center folic acid 2020- No 1mg QD Take [...] WEIGHT 2020-12-28 09:20:00 65.2 kg Heart rate 2022-01-24 17:45:00 73 /min [facility] [place] [facility] Respiratory rate 2022-01-24 17:45:00 30 /min Univ ersity [facility] [place] [facility] Oxygen saturation in 2022-01-24 17:45:00 96 /min University of Arterial blood by [place] Medi samina Pulse oximetry Branch Systolic blood 2022-01-24 17:00:00 123 mm[Hg] Univer sity of pressure [place] [facility] Diastolic blood 2022-01-24 17:00:00 75 mm[Hg] Unive rsity of pressure [place] [facility] Body temperature 2022-01-24 13:19:00 36.67 [place] [facility] [place] [facility] Body weight 2022-01-24 13:19:00 58.06 kg [facility] [place] [facility] BMI 2022-01-24 13:19:00 23.41 kg/m2 [facility] [place] [facility] Heart rate 2022-01-23 13:25:00 89 /min [facility] [place] [facility] Respiratory rate 2022-01-23 13:25:00 16 /min Univ ers[facility] [place] [facility] Oxygen saturation in 2022-01-23 13:25:00 92 /min University of Arterial blood by [facility] Pulse oximetry Branch Diastolic blood 2022-01-23 12:27:00 86 mm[Hg] Unive rsity of pressure [place] [facility] Body temperature 2022-01-23 12:27:00 36.11 [place] Univ ersity [facility] [place] [facility] Systolic blood 2022-01-23 12:27:00 135 mm[Hg] Univer sity of pressure [place] [facility] Body weight 2022-01-23 09:07:00 58.469 kg [facility] [place] [facility] BMI 2022-01-23 09:07:00 23.58 kg/m2 [facility] [place] [facility] Body height 2022-01-21 19:22:00 157.5 cm [facility] [place] [facility] WEIGHT 2021-01-18 04:35:00 66.225 kg WEIGHT 2021-01-17 06:00:00 64.864 kg WEIGHT 2021-01-14 06:00:00 64.864 kg WEIGHT 2021-01-13 06:00:00 64.864 kg HEIGHT 2020-12-28 14:08:00 162.6 cm WEIGHT 2020-12-28 09:20:00 65.2 kg Heart rate 2021-01-19 08:29:00 98 /min [facility] Respiratory rate 2021-01-19 08:29:00 18 /min [facility] Oxygen saturation in 2021-01-19 08:29:00 96 /min [facility] Arterial blood by Medical Ce nter Pulse oximetry Systolic blood 2021-01-19 07:31:00 108 mm[Hg] [facility] Diastolic blood 2021-01-19 07:31:00 70 mm[Hg] [facility] Body temperature 2021-01-19 07:31:00 35.72 Niecy [facility] Body weight 2021-01-18 04:35:00 66.225 kg [facility] BMI 2021-01-18 04:35:00 25.06 kg/m2 [facility] Body height 2021-01-01 11:27:00 162.6 cm [facility] Procedures Procedure Date / Time Performing Clinician Source Performed XR CHEST 1 VW 2022-01-22 11:34:32 Riley Bean [facility] MAGNESIUM 2022-01-22 10:24[facility] 2022-01-22 10:24:00 Riley Bean [facility] (NA, K, CL, CO2, GLUCOSE, Medica l Branch BUN, CREATININE, CA) CBC WITH DIFF 2022-01-22 10:24:00 Riley Bean [facility] URINE CULTURE 2022-01-21 17:25:00 Marcelino Heredia [facility] COVID-19 (ID NOW RAPID 2022-01-21 16:52:00 Marcelino Heredia [facility] TESTING) [facility] ABDOMEN PELVIS W 2022-01-21 16:15:23 Marcelino Heredia [facility] CONTRAST [facility] URINALYSIS 2022-01-21 15:38:00 Yan Marcelino [facility] URINE DRUG (IMMUNOASSAY) 2022-01-21 15:38:00 Marcelino Heredia [facility] nch SCREEN W/O REFLEX LIPASE 2022-01-21 15:04:00 Marcelino Heredia [facility] COMP. METABOLIC PANEL 2022-01-21 15:04:00 Marcelino Heredia [facility] ([id number]) [facility] CBC WITH DIFF 2022-01-21 15:04:00 Marcelino Heredia [facility] [place] [facility] PROTHROMBIN TIME / INR 2022-01-21 15:04:00 Marcelino Heredia [facility] ACTIVATED PARTIAL 2022-01-21 15:04:00 Marcelino Heredia [facility] POCT-GLUCOSE METER 2021-01-19 06:06:00 Maury Amador In [facility] POCT-GLUCOSE METER 2021-01-19 00:08:00 Maury Amador In [facility] POCT-GLUCOSE METER 2021-01-18 18:00:00 Maury Amador In [facility] POCT-GLUCOSE METER 2021-01-18 13:03:00 Maury Amador In [facility] POCT-GLUCOSE METER 2021-01-18 12:18:00 Maury Amador In [facility] SARS-COV2/RT-PCR ([facility] & 2021-01-18 10:03:00 Maury Amador In [facility] POCT-GLUCOSE METER 2021-01-18 06:22:00 Maury Amador In [facility] CBC W/PLT COUNT & AUTO 2021-01-18 06:10:00 Maximo [facility] BASIC METABOLIC PANEL (7) 2021-01-18 06:10:00 Maximo [facility] POCT-GLUCOSE METER 2021-01-18 00:37:00 Maury Amador In [facility] POCT-GLUCOSE METER 2021-01-17 17:27:00 Tracee-Pankaj Sung In [facility] EEG AWAKE AND DROWSY 2021-01-17 15:12:00 Coreen Marsh [facility] URINE CULTURE 2021-01-17 14:34:00 Deanne Gonzalez [facility] URINALYSIS W/ REFLEX 2021-01-17 14:34:00 Deanne Gonzalez [facility] URINE CULTURE [facility] POCT-GLUCOSE METER 2021-01-17 12:25:00 Tracee-Nasima Lirag In [facility] XR CHEST 1 VIEW PORTABLE 2021-01-17 09:50:00 Deanne Gonzalez [facility] / BEDSIDE [facility] BASIC METABOLIC PANEL (7) 2021-01-17 05:36:00 Miri Murillo [facility] CBC W/PLT COUNT & AUTO 2021-01-17 05:36:00 Miri Murillo [facility] DIFFERENTIAL [facility] MAGNESIUM 2021-01-17 05:36:00 Miri Murillo [facility] PHOSPHORUS 2021-01-17 05:36:00 Miri Murillo [facility] (CELLAVISION MANUAL DIFF) 2021-01-17 05:36:00 Miri Murillo [facility] POCT-GLUCOSE METER 2021-01-17 05:25:00 Tracee-Nasima Lirag In [facility] POCT-GLUCOSE METER 2021-01-17 00:20:00 Tracee-Pankaj Sung In [facility] POCT-GLUCOSE METER 2021-01-16 18:22:00 Tracee-Pankaj Sung In [facility] SARS-COV2/RT-PCR ([facility] & 2021-01-16 17:47:00 Miri Murillo [facility] REF LABS) [facility] CTA BRAIN 2021-01-16 17:42:00 Deanne Gonzalez [facility] POCT-GLUCOSE METER 2021-01-16 11:55:00 Maury Amador [facility] POCT-GLUCOSE METER 2021-01-16 06:50:00 Kameron, [facility] BASIC METABOLIC PANEL (7) 2021-01-16 04:06:00 Miri Murillo [facility] CBC W/PLT COUNT & AUTO 2021-01-16 04:06:00 Miri Murillo [facility] MAGNESIUM 2021-01-16 04:06:00 Miri Murillo [facility] PHOSPHORUS 2021-01-16 04:06:00 Miri Murillo [facility] POCT-GLUCOSE METER 2021-01-16 00:12:00 Kameron, [facility] POCT-GLUCOSE METER 2021-01-15 17:47:00 Kameron, [facility] POCT-GLUCOSE METER 2021-01-15 12:12:00 Kameron, [facility] POCT-GLUCOSE METER 2021-01-15 06:48:00 Kameron, [facility] BASIC METABOLIC PANEL (7) 2021-01-15 05:43:00 Miri Murillo [facility] CBC W/PLT COUNT & AUTO 2021-01-15 05:43:00 Miri Murillo [facility] MAGNESIUM 2021-01-15 05:43:00 Miri Murillo [facility] PHOSPHORUS 2021-01-15 05:43:00 Miri Murillo [facility] POCT-GLUCOSE METER 2021-01-15 00:32:00 Kameron, [facility] POCT-GLUCOSE METER 2021-01-14 18:26:00 Kameron, [facility] SODIUM 2021-01-14 15:39:00 Miri Murillo [facility] POCT-GLUCOSE METER 2021-01-14 11:34:00 Kameron, [facility] INSERTION,GASTROSTOMY 2021-01-14 07:52:00 Miri Murillo [facility] TUBE-LAPAROSCOPIC [facility] POCT-GLUCOSE METER 2021-01-14 05:44:00 Kameron, [facility] BASIC METABOLIC PANEL (7) 2021-01-14 04:27:00 Miri Murillo [facility] CBC W/PLT COUNT & AUTO 2021-01-14 04:27:00 Barry Funes [facility] MAGNESIUM 2021-01-14 04:27:00 Miri Murillo [facility] PHOSPHORUS 2021-01-14 04:27:00 Lidia Miri Betty [facility] POCT-GLUCOSE METER 2021-01-13 23:50:00 Kameron, [facility] POCT-GLUCOSE METER 2021-01-13 16:39:00 Kameron, [facility] SODIUM 2021-01-13 15:02:00 Lidia [facility] TYPE AND SCREEN, 2021-01-13 15:02:[address] [facility] POCT-GLUCOSE METER 2021-01-13 12:09:00 Kameron, [facility] POCT-GLUCOSE METER 2021-01-13 05:18:00 Kameron, [facility] CBC W/PLT COUNT & AUTO 2021-01-13 04:17:00 Barry Funes [facility] BASIC METABOLIC PANEL (7) 2021-01-13 04:16:00 Miri Murillo [facility] MAGNESIUM 2021-01-13 04:16:00 Lidia Miri Betty [facility] PHOSPHORUS 2021-01-13 04:16:00 Lidia [facility] POCT-GLUCOSE METER 2021-01-12 23:43:00 Kameron, [facility] POCT-GLUCOSE METER 2021-01-12 17:14:00 Kameron, [facility] VANCOMYCIN LEVEL, TROUGH 2021-01-12 13:37:00 JulianPetrona [facility] SODIUM 2021-01-12 13:37:00 Lidia Miri [facility] POCT-GLUCOSE METER 2021-01-12 11:59:00 Kameron, [facility] POCT-GLUCOSE METER 2021-01-12 07:52:00 Kameron, [facility] POCT-GLUCOSE METER 2021-01-12 05:56:00 Kameron, [facility] BASIC METABOLIC PANEL (7) 2021-01-12 05:32:00 Miri Murillo [facility] CBC W/PLT COUNT & AUTO 2021-01-12 05:32:00 Barry Funes [facility] MAGNESIUM 2021-01-12 05:32:00 Miri Murillo [facility] PHOSPHORUS 2021-01-12 05:32:00 Miri Murillo Betty [facility] (CELLAVISION MANUAL DIFF) 2021-01-12 05:32:00 Barry Funes [facility] POCT-GLUCOSE METER 2021-01-11 23:41:00 Kameron, [facility] IR GASTROSTOMY TUBE 2021-01-11 17:16:00 Kameron, [facility] INSERTION W/FLUORO Medical Cente r POCT-GLUCOSE METER 2021-01-11 12:16:00 Kameron, [facility] PT/APTT 2021-01-11 10:13:00 Kameron, [facility] POCT-GLUCOSE METER 2021-01-11 06:20:00 Kameron, [facility] SODIUM 2021-01-11 04:47:00 Miri Murillo Betty [facility] BASIC METABOLIC PANEL (7) 2021-01-11 04:47:00 Miri Murillo [facility] CBC W/PLT COUNT & AUTO 2021-01-11 04:47:00 Barry Funes [facility] MAGNESIUM 2021-01-11 04:47:00 Miri Murillo [facility] PHOSPHORUS 2021-01-11 04:47:00 Miri Murillo [facility] (CELLAVISION MANUAL DIFF) 2021-01-11 04:47:00 Barry Funes [facility] POCT-GLUCOSE METER 2021-01-11 00:05:00 KameronSudha [facility] C. DIFFICILE GDH TOXIN 2021-01-10 08:33:00 Coreen Marsh [facility] BASIC METABOLIC PANEL (7) 2021-01-10 08:33:00 Miri Murillo [facility] CBC W/PLT COUNT & AUTO 2021-01-10 08:33:00 Barry Funes [facility] MAGNESIUM 2021-01-10 08:33:00 Miri Murillo [facility] PHOSPHORUS 2021-01-10 08:33:00 Lidia Miri F. [facility] VANCOMYCIN LEVEL, TROUGH 2021-01-10 08:33:00 Barry Funes [facility] POCT-GLUCOSE METER 2021-01-10 06:02:00 Toña [facility] POCT-GLUCOSE METER 2021-01-09 23:24:00 Toña, [facility] SODIUM 2021-01-09 16:00:00 Miri Murillo [facility] POCT-GLUCOSE METER 2021-01-09 15:59:00 Barry Funes [facility] [facility] SARS-COV2/RT-PCR ([facility] & 2021-01-09 15:21:00 Miri Murillo CH I [facility] REF LABS) [facility] BASIC METABOLIC PANEL (7) 2021-01-09 02:50:00 Miri Murillo [facility] CBC W/PLT COUNT & AUTO 2021-01-09 02:50:[address] [facility] MAGNESIUM 2021-01-09 02:50:00 Miri Murillo Betty [facility] PHOSPHORUS 2021-01-09 02:50:00 Lidia [facility] SODIUM 2021-01-08 17:25:00 Lidia [facility] XR CHEST 1 VIEW PORTABLE 2021-01-08 11:05:00 Barry Funes [facility] / BEDSIDE [facility] URINALYSIS W/ REFLEX 2021-01-08 10:56:00 Julian Epstein [facility] URINE CULTURE [facility] BASIC METABOLIC PANEL (7) 2021-01-08 03:14:00 Miri Murillo [facility] CBC W/PLT COUNT & AUTO 2021-01-08 03:14:[address] [facility] MAGNESIUM 2021-01-08 03:14:00 Lidia [facility] PHOSPHORUS 2021-01-08 03:14:00 Lidia [facility] (CELLAVISION MANUAL DIFF) 2021-01-08 03:14:00 Sancho Martinez [facility] PROCALCITONIN 2021-01-07 20:15:00 Lisa Adriano [facility] HC TCD COMPLETE 2021-01-07 15:30:00 Barry Funes [facility] BLOOD CULTURE 2021-01-07 14:25:00 Lisa [facility] SPUTUM CULTURE + GRAM 2021-01-07 14:01:00 Lisa [facility] BLOOD CULTURE 2021-01-07 13:49:00 Lisa [facility] BLOOD GAS, ARTERIAL 2021-01-07 13:49:00 Lisa [facility] COMPREHENSIVE METABOLIC 2021-01-07 13:48:00 Deanne Gonzalez CH I [facility] HEPATIC FUNCTION PANEL 2021-01-07 13:48:00 Barry Funes [facility] MAGNESIUM 2021-01-07 13:48:[address] [facility] PHOSPHORUS 2021-01-07 13:48:00 [facility] IV 2021-01-07 13:35:00 Deanne Gonzalez [facility] CONTRAST [facility] XR CHEST 1 VIEW PORTABLE 2021-01-07 11:54:00 Deanne Gonzalez [facility] POCT-GLUCOSE METER 2021-01-07 11:34:00 Shantel [facility] EEG AWAKE AND DROWSY 2021-01-07 08:54:00 Amador Shepard [facility] POCT-GLUCOSE METER 2021-01-07 05:29:00 [facility] BASIC [facility] (7) 2021-01-07 03:12:00 Miri Murillo [facility] CBC W/PLT COUNT & AUTO 2021-01-07 03:12:00 Sancho Martinez CH I [facility] MAGNESIUM 2021-01-07 03:12:00 Miri Murillo [facility] PHOSPHORUS 2021-01-07 03:12:00 Miri Murillo [facility] POCT-GLUCOSE METER 2021-01-06 23:20:[address] [facility] POCT-GLUCOSE METER 2021-01-06 17:19:[address] [facility] SODIUM 2021-01-06 16:23:00 Miri Murillo [facility] POCT-GLUCOSE METER 2021-01-06 11:47:[address] [facility]RAIN WITHOUT IV 2021-01-06 10:31:[address] [facility] CTA BRAIN 2021-01-06 10:31:00 Bessie Caban [facility] POCT-GLUCOSE METER 2021-01-06 06:30:[address] [facility] BLOOD GAS, ARTERIAL 2021-01-06 02:10:00 Lina Parson [facility] BASIC METABOLIC PANEL (7) 2021-01-06 02:09:00 Miri Murillo [facility] CBC W/PLT COUNT & AUTO 2021-01-06 02:09:00 Sancho Martinez CH [facility] MAGNESIUM 2021-01-06 02:09:00 Miri Murillo [facility] PHOSPHORUS 2021-01-06 02:09:00 Miri Murillo [facility] POCT-GLUCOSE METER 2021-01-06 01:17:[address] [facility] SODIUM 2021-01-05 21:04:00 Lidia Miri Betyt [facility] POCT-GLUCOSE METER 2021-01-05 17:54:[address] [facility] POCT-GLUCOSE METER 2021-01-05 12:02:[address] [facility] POCT-GLUCOSE METER 2021-01-05 05:41:00 [facility] BLOOD [facility], ARTERIAL 2021-01-05 04:28:00 Sancho Martinez [facility] BASIC METABOLIC PANEL (7) 2021-01-05 04:27:00 Miri Murillo [facility] CBC W/PLT COUNT & AUTO 2021-01-05 04:27:00 Sancho Martinez CH I [facility] MAGNESIUM 2021-01-05 04:27:00 Miri Murillo [facility] PHOSPHORUS 2021-01-05 04:27:00 Miri Murillo [facility] PROCALCITONIN 2021-01-05 04:27:00 Sancho Martinez [facility] POCT-GLUCOSE METER 2021-01-05 00:12:[address] [facility] POCT-GLUCOSE METER 2021-01-04 18:03:[address] [facility] HEMOGLOBIN AND HEMATOCRIT 2021-01-04 14:15:00 Vel Vick [facility] SODIUM 2021-01-04 14:15:00 Miri Murillo [facility] POTASSIUM 2021-01-04 14:15:00 Be [facility] POCT-GLUCOSE METER 2021-01-04 11:44:[address] [facility] XR CHEST 1 VIEW PORTABLE 2021-01-04 07:42:00 Be [facility] / BEDSIDE [facility] BLOOD GAS, ARTERIAL 2021-01-04 04:14:00 Sancho Martinez [facility] BASIC METABOLIC PANEL (7) 2021-01-04 04:06:00 Miri Murillo [facility] CBC W/PLT COUNT & AUTO 2021-01-04 04:06:00 Sancho Martinez CH I [facility] MAGNESIUM 2021-01-04 04:06:00 Miri Murillo [facility] PHOSPHORUS 2021-01-04 04:06:00 Miri Murillo [facility] POCT-GLUCOSE METER 2021-01-04 01:05:00 Sal Lozada [facility]ter POCT-GLUCOSE METER 2021-01-03 17:33:00 Sal Lozada [facility] SODIUM 2021-01-03 16:10:00 Miri Murillo [facility] [place] CEREBRAL 4 VESSEL 2021-01-03 13:55:00 Sacnho Martinez [facility] ANGIOGRAM [facility] [place] EMBOLIZATION EXTENSIVE 2021-01-03 13:55:00 Sancho Martinez [facility] POCT-GLUCOSE METER 2021-01-03 11:26:00 Sal Lozada [facility] POCT-GLUCOSE METER 2021-01-03 05:22:00 Sal Lozada [facility] BASIC METABOLIC PANEL (7) 2021-01-03 04:09:00 Miri Murillo [facility] CBC W/PLT COUNT & AUTO 2021-01-03 04:09:00 Billy Borja [facility] MAGNESIUM 2021-01-03 04:09:00 Miri Murillo [facility] PHOSPHORUS 2021-01-03 04:09:00 Miri Murillo [facility] BLOOD GAS, ARTERIAL 2021-01-03 04:09:00 Sancho Martinez [facility] XR CHEST 1 VIEW PORTABLE 2021-01-03 00:31:00 Aaron Davila [facility] / BEDSIDE [facility] nter POCT-GLUCOSE METER 2021-01-02 23:13:00 Sal Lozada [facility] n[facility] POTASSIUM 2021-01-02 17:50:00 Miri Murillo [facility] POCT-GLUCOSE METER 2021-01-02 17:32:00 Sal Lozada [facility] HC VENOUS DOPPLER EXT RAJAT 2021-01-02 17:10:00 Vel Vick [facility] VENOUS DOPPLER LEGS 2021-01-02 16:50:00 Vel Vick [facility] SODIUM 2021-01-02 16:05:00 Miri Murillo [facility] NEURO TCD - COMPLETE 2021-01-02 13:04:27 Barry Funes [facility] POCT-GLUCOSE METER 2021-01-02 11:23:00 Sal Lozada [facility] POTASSIUM 2021-01-02 11:14:00 Miri Murillo [facility] MAGNESIUM 2021-01-02 11:14:00 Miri Murillo [facility] POCT-GLUCOSE METER 2021-01-02 05:59:00 Sal Lozada [facility] XR CHEST 1 VIEW PORTABLE 2021-01-02 04:28:00 Aaron Davila [facility] / BEDSIDE [facility] Ce nter BASIC METABOLIC PANEL (7) 2021-01-02 03:41:00 Miri Murillo [facility] CBC W/PLT COUNT & AUTO 2021-01-02 03:41:00 Billy Borja [facility] MAGNESIUM 2021-01-02 03:41:00 Miri Murillo [facility] PHOSPHORUS 2021-01-02 03:41:00 Miri Murillo [facility] BLOOD GAS, ARTERIAL 2021-01-02 03:41:00 Sancho Martinez [facility] POCT-GLUCOSE METER 2021-01-01 23:37:00 Sal Lozada [facility] MR BRAIN WITHOUT IV 2021-01-01 22:08:00 Julian Epstein [facility] POCT-GLUCOSE METER 2021-01-01 17:45:00 Sal Lozada [facility] NEURO TCD - COMPLETE 2021-01-01 17:05:10 Barry Funes [facility] SODIUM 2021-01-01 15:55:00 Miri Murillo [facility] VANCOMYCIN LEVEL, TROUGH 2021-01-01 15:55:00 Ena Shepherd [facility] MAGNESIUM 2021-01-01 15:55:00 NicanorVel [facility] POTASSIUM 2021-01-01 15:55:00 NicanorVel [facility] POCT-GLUCOSE METER 2021-01-01 12:05:00 Sal Lozada [facility] BLOOD GAS, ARTERIAL 2021-01-01 07:25:00 Verito Waldron [facility] BASIC METABOLIC PANEL (7) 2021-01-01 05:56:00 Miri Murillo [facility] MAGNESIUM 2021-01-01 05:56:00 Miri Murillo [facility] PHOSPHORUS 2021-01-01 05:56:00 Miri Murillo [facility] POCT-GLUCOSE METER 2021-01-01 05:13:00 Sal Lozada [facility] CBC W/PLT COUNT & AUTO 2021-01-01 04:21:00 Billy Borja [facility] XR CHEST 1 VIEW PORTABLE 2021-01-01 00:39:00 Aaron Davila [facility] / BEDSIDE [facility] POCT-GLUCOSE METER 2020-12-31 23:26:00 Sal Lozada [facility] POCT-GLUCOSE METER 2020-12-31 19:11:00 Sal Lozada [facility] SODIUM 2020-12-31 16:09:00 Miri Murillo [facility] POTASSIUM 2020-12-31 16:09:00 Venkatasnadiyaba Lozada, [facility] MAGNESIUM 2020-12-31 16:09:00 Sal Lozada [facility] XR ABDOMEN / KUB 1 VIEW 2020-12-31 13:46:00 Julian Epstein [facility] HC TCD COMPLETE 2020-12-31 13:30:00 Barry Funes [facility] POCT-GLUCOSE METER 2020-12-31 12:46:00 Sal Lozada [facility] BASIC METABOLIC PANEL (7) 2020-12-31 03:46:00 Lina Parson [facility] CBC W/PLT COUNT & AUTO 2020-12-31 03:46:[address] [facility] MAGNESIUM 2020-12-31 03:46:00 Blank Lina [facility] POCT-GLUCOSE METER 2020-12-31 00:07:00 Sal Lozada [facility] PREPARE LEUKO-REDUCED RBC 2020-12-30 23:54:00 Verito Waldron [facility] HEMOGLOBIN AND HEMATOCRIT 2020-12-30 20:57:00 Naeem Gonzalez [facility] POCT-GLUCOSE METER 2020-12-30 17:11:00 Sal Lozada [facility] SODIUM 2020-12-30 17:01:00 Miri Murillo [facility] EEG 2-12 HR CONTINUOUS 2020-12-30 16:50:00 Frankie Kitchen [facility] MONITORING WITH VIDEO Medical Ce nter HC TCD COMPLETE 2020-12-30 16:45:00 Barry Funes [facility] CT BRAIN WITHOUT IV 2020-12-30 12:27:[address] [facility] POCT-GLUCOSE METER 2020-12-30 12:01:00 Sal Lozada [facility]ter SPUTUM CULTURE + GRAM 2020-12-30 09:37:00 Vanita Ver[facility] PROCALCITONIN 2020-12-30 09:37:00 Waldron [facility] URINALYSIS WITH 2020-12-30 07:41:00 Waldron [facility] s MICROSCOPIC IF INDICATED [facility] URINALYSIS MICROSCOPIC 2020-12-30 07:41:[address] [facility] BLOOD CULTURE 2020-12-30 07:40:00 [facility] BLOOD CULTURE 2020-12-30 07:35:00 [facility] POCT-GLUCOSE METER 2020-12-30 06:56:00 Sal Lozada [facility] n[facility] EEG 12-26 HR CONTINUOUS 2020-12-30 06:13:00 Sal Lozada CH I [facility] MONITORING WITH VIDEO [facility] BASIC METABOLIC PANEL (7) 2020-12-30 04:55:00 Sal Lozada [facility] nter CBC W/PLT COUNT & AUTO 2020-12-30 04:55:00 Sal Lozada [facility] DIFFERENTIAL [facility] nter MAGNESIUM 2020-12-30 04:55:00 Vel Vick [facility] (CELLAVISION MANUAL DIFF) 2020-12-30 04:55:00 Sal Lozada [facility] nter XR CHEST 1 VIEW PORTABLE 2020-12-30 03:22:[address] [facility]ter SODIUM 2020-12-30 00:24:00 Sunnymorena Lozada, [facility] POCT-GLUCOSE METER 2020-12-30 00:09:00 Sunnynadiyaava Lozada, [facility] SPUTUM CULTURE + GRAM 2020-12-29 17:17:00 Sunnynadiyaava Lozada, [facility] ST[facility] HEMOGLOBIN AND HEMATOCRIT 2020-12-29 17:16:00 Jordanswathimorena Lozada, [facility] POCT-GLUCOSE METER 2020-12-29 17:16:00 Simeondonnymorena Lozada, [facility] SODIUM 2020-12-29 16:17:00 Sunnymorena Lozada, [facility] TRANSFUSE LEUKO-REDUCED 2020-12-29 15:50:15 Verito Waldron [facility] RED BLOOD CELLS [facility] 2D ECHO W/ DOPPLER 2020-12-29 14:23:23 Sal Lozada [facility] (CW/PW/COLOR) [facility] n[facility] POCT-GLUCOSE METER 2020-12-29 12:19:00 Sunnymorena Lozada [facility] EEG 12-26 HR CONTINUOUS 2020-12-29 11:34:00 Sal Lozada I [facility] MONITORING WITH VIDEO [facility] CTA BRAIN 2020-12-29 10:40:00 Deanne Gonzalez [facility] BLOOD GAS, ARTERIAL 2020-12-29 07:43:00 Julian Epstein [facility] BLOOD GAS, ARTERIAL 2020-12-29 06:07:00 Maria Mercado [facility] POCT-GLUCOSE METER 2020-12-29 06:07:00 Sal Lozada, [facility] MAGNESIUM 2020-12-29 05:59:00 Sal Lozada, [facility] PHOSPHORUS 2020-12-29 05:59:00 Sal Lozada, [facility] BASIC METABOLIC PANEL (7) 2020-12-29 05:59:00 Sal Lozada, [facility] CBC W/PLT COUNT & AUTO 2020-12-29 05:59:00 Sal Lozada, [facility] DIFFERENTIAL [facility] HEMOGLOBIN A1C 2020-12-29 05:59:00 Sal Lozada, [facility] (CELLAVISION MANUAL DIFF) 2020-12-29 05:59:00 Sal Lozada, [facility] XR CHEST 1 VIEW PORTABLE 2020-12-29 03:01:00 Sal Lozada, Aaron [facility] / BEDSIDE [facility] Ce nter XR ABDOMEN / KUB 1 VIEW 2020-12-28 23:02:00 [facility] & AUTO 2020-12-28 22:13:00 Sal Lozada [facility] DIFFERENTIAL [facility] Ce nter PT/APTT 2020-12-28 22:13:00 Sal Lozada, [facility] Ce [facility]ter COMPREHENSIVE METABOLIC 2020-12-28 22:13:00 PitLina nassar [facility] MAGNESIUM 2020-12-28 22:13:00 Pitcesario [facility] PHOSPHORUS 2020-12-28 22:13:00 PittardLina [facility] (CELLAVISION MANUAL DIFF) 2020-12-28 22:13:00 Sal Lozada [facility] n[facility] CT BRAIN WITHOUT IV 2020-12-28 21:03:00 Jason Galan [facility] CONTRAST PORTABLE [facility] PREPARE RBC 2020-12-28 20:43:00 Ava Whitt [facility] MI INSERT 2020-12-28 13:56:27 Sal Lozada [facility] CATH,ART,PERCUT,SHORTTERM [facility] CRANIOTOMY,ANEURYSM 2020-12-28 13:43:00 Ava Whitt [facility] CLIPPING [facility] ABORH, MANUAL 2020-12-28 13:02:00 Milvia Srivastava [facility] SARS-COV2/RT-PCR ([facility] & 2020-12-28 12:49:00 Coreen Marsh [facility] REF LABS) [facility] HEMOGLOBIN A1C 2020-12-28 12:45:00 Sal Lozada [facility] nter PHENYTOIN LEVEL, TOTAL 2020-12-28 12:45:00 Sal Lozada [facility] n[facility] TYPE AND SCREEN, 2020-12-28 12:45:00 Coreen Marsh [facility] AUTOMATED [facility] BLOOD GAS, ARTERIAL 2020-12-28 12:40:00 Sal Lozada [facility] n[facility] CT BRAIN WITHOUT IV 2020-12-28 11:17:00 Mauro [facility] CTA BRAIN 2020-12-28 11:17:00 Mauro [facility] POCT-GLUCOSE METER 2020-12-28 11:17:00 Sal Lozada [facility] nter HEPATIC FUNCTION PANEL 2020-12-28 10:04:00 Yudelka Wade [facility] APTT 2020-12-28 10:04:00 Yudelka Wade [facility] PROTHROMBIN TIME/INR 2020-12-28 10:04:00 Vel Vick [facility] BASIC METABOLIC PANEL (7) 2020-12-28 10:04:00 Sal Lozada [facility] nter CBC W/PLT COUNT & AUTO 2020-12-28 10:04:00 Vel Vick I [facility] (CELLAVISION MANUAL DIFF) 2020-12-28 10:04:00 Vel Vick [facility] XR CHEST 1 VIEW PORTABLE 2020-12-28 09:44:[address] [facility] / BEDSIDE [facility] NEUROPHYSIOLOGY REPORT - 2020-12-28 00:00:00 Provider, Default C [facility] SCAN Scanning [facility] REPORT OF PROCEDURE - 2020-12-28 00:00:00 Provider, Default [facility] ENDOSCOPY SCAN Scanning [facility] Plan of Care Planned Activity Planned Date Details Comments Source Future Scheduled 2022-01-23 INFLUENZA VACCINE (#1) [facility] 00:00:00 [code = INFLUENZA Medical Ce nter VACCINE (#1)] Future Scheduled 2021-05-[address] [facility] 00:00:00 (12+) [code = Medical Center DEPRESSION SCREENING (12+)] Future Scheduled 2021-05-25 FALLS RISK SCREENING [facility] 00:00:00 [code = FALLS RISK Medical C enter SCREENING] Future Scheduled 2021-01-23 INFLUENZA VACCINE (#1) C [...] [facility] Test 00:00:00 (1 of 1 - Medical Center [id number] PCV13) [code = PNEUMOCOCCAL 65+ YRS (1 of 1 - [id number] PCV13)] Future Scheduled 2010 PNEUMOCOCCAL 65+ YRS [facility] 00:00:00 (1 - PCV) [code = Medical Ce nter PNEUMOCOCCAL 65+ YRS (1 - PCV)] Future Scheduled 1995-09-29 SHINGLES VACCINES ([address] [facility] Test 00:00:00 of 2) [code = SHINGLES Medic al Center VACCINES (1 of 2)] Future Scheduled 1995-09-29 SHINGLES VACCINES ([address] [facility] Test 00:00:00 of 2) [code = SHINGLES Medic al Center VACCINES (1 of 2)] Future Scheduled 1964 DTAP/TDAP/TD VACCINES [facility] 00:00:00 (1 - Tdap) [code = Medical C enter DTAP/TDAP/TD VACCINES (1 - Tdap)] Future Scheduled 1964 DTAP/TDAP/TD VACCINES [facility] 00:00:00 (1 - Tdap) [code = Medical C enter DTAP/TDAP/TD VACCINES (1 - Tdap)] Future Scheduled 1963-09-29 HEPATITIS C SCREENING [facility] 00:00:00 [code = HEPATITIS C Medical Center SCREENING] Future Scheduled 1963-09-29 HEPATITIS C [facility]CREENING [facility] 00:00:00 [code = HEPATITIS C Medical Center SCREENING] Future Scheduled 1957 COVID-19 VACCINE (1) [facility] 00:00:00 [code = COVID-[address] VACCINE (1)] Future Scheduled 1946-03-31 COVID-19 VACCINE (#1) [facility] 00:00:00 [code = COVID-[address] VACCINE (#1)] Future Scheduled [address] [facility] 00:00:00 malignant neoplasm of Medica l Center colon (procedure) [code = 136280644] Future Scheduled 1945 DXA SCAN [code = DXA [facility] Test 00:00:00 SCAN] Medical Center Encounters Start End Encounter Admission Attending Care Care Encounter Source Date/Time Date/Time Type Type Clinicians Facility Department ID 2020-12-28 Inpatient ER [facility] ICU [id number] [facility] 09:17:00 Alanna LOZADA MICHAELMARTY 2022-01-24 2022-01-24 [id number] 08:17:00 14:07:00 ADAM lange [facility] 2022-01-24 2022-01-24 [facility] [id number] [facility] 08:17:00 14:07:00 Adam STONE [id number] i ty of KENYA [id number] [facility] [id number] [facility] [address] 2022-01-24 2022-01-24 Transition BRINA Al [id number] Univers 00:00:00 00:00:00 of Care Mariah PERALES [id number] i ty of PLARONAN [id number] [facility] [id number] [facility] [address] 2022-01-21 2022-01-23 Outpatient X NELSON [facility] [id number] Univers 09:59:00 12:57:00 NOVA lange [facility] 2022-01-21 2022-01-23 Emergency Marcelino Heredia [facility] [id number] Univers 09:59:00 12:57:00 Nova Damon [id number] [facility] [id number] [facility] [id number] [facility] [address] 2021-06-06 2021-06-06 Outpatient DMG DMG [id number] [facility] 12:01:00 12:01:00 [id number] Medica l Group 2021-01-21 2021-01-[address] [facility] [id number] 00:[facility] 00:00:00 Sung In [facility] 2021-01-14 2021-01-[address] [facility] [id number] 08:15:00 09:52:00 Miri Cardenas [facility] 2021-01-14 2021-01-[address] [facility] [id number] 08:07:00 09:24:00 Event Henny García [facility] 2021-01-03 2021-01-03 An[address] Staci, [facility] [id number] 12:06:00 14:16:00 Event Nathan Jarvis [facility] 2021-01-03 2021-01-03 Surgery Virtual, [facility] [id number] 10:30:00 11:30:00 Surgeon [facility] 2021-01-02 2021-01-02 Outside Pcp, No [facility] [id number] 00:00:00 00:00:00 Orders [facility] 2020-12-28 2020-12-[address] [facility] [id number] 13:58:00 20:37:00 Event Fei Charles [facility] 2020-12-28 2020-12-28 Surgery Peri, [facility] [id number] 12:38:00 19:25:00 [facility] 2020-12-28 2020-12-[address] [facility] [id number] [facility] 00:[facility] 00:00:00 [facility] Results Test Description Test Time Test Comments Results Result Comments Source COMP. METABOLIC PANEL (50274) 2022-01-21 15:44:19 Test Item Value Reference Range Interpretation Comme nts NA (test code = 8824932056) 138 mmol/L 135-145 K (test code = 6432577442) 3.6 mmol/L 3.5-5 CL (test code = 7632218722) 96 mmol/L 98-108 L CO2 TOTAL (test code = 9209593257) 37 mmol/L 23-31 H AGAP (test code = 4600939972) 2-16 BUN (test code = 9370317632) 38 mg/dL 7-23 H GLUCOSE (test code = 0474640415) 121 mg/dL 70-110 H CREATININE (test code = 0.76 mg/dL 0.5-1.04 5313849207) TOTAL BILI (test code = 0.8 mg/dL 0.1-1.5 3839352271) CALCIUM (test code = 4437870070) 8.5 mg/dL 8.6-10.6 L T PROTEIN (test code = 3115984849) 6.9 g/dL 6.3-8.2 ALBUMIN (test code = 4077516288) 4.1 g/dL 3.5-5 ALK PHOS (test code = 5519456496) 91 U/L 34-122 ALTv (test code = 1742-6) 40 U/L 5-35 H AST(SGOT) (test code = 9178585216) 52 U/L 13-40 H eGFR (test code = 2932922023) mL/min/1.73m2 NETTIE (test code = NETTIE) Association of Glomerular Filtration Rate (GFR) and Staging of Kidney Disease* + +-------- + ------+| GFR (mL/min/1.73 m2) ?| With Kidney Damage ?| ?Without Kidney Damage+ +-- + +| ?>90 ?| ?Stage one ?| ? Normal ?+ +------- + -------+| ?60-89 ?| ?Stage two ?| ? Decreased GFR ? + +-------- + ------+| ?30-59 ?| ?Stage three ?| ? Stage three ? + +-------- + ------+| ?15-29 ?| ?Stage four ? | ? Stage four ?+ +------- + -------+| ?<15 (or dialysis) ? ?| ?Stage five ? | ? Stage five ?+ +------- + -------+ *Each stage assumes the associated GFR level has been in effect for at least three months. ?Stages 1 to 5, with or without kidney disease, indicate chronic kidney disease. Notes: Determination of stages one and two (with eGFR >59mL/min/1.73 m2) requires estimation of kidney damage for at least three months as defined by structural or functional abnormalities of the kidney, manifested by either:Pathological abnormalities or Markers of kidney damage (including abnormalities in the composition of the blood or urine or abnormalities in imaging tests). Lab Interpretation (test code = Abnormal 81303-7) [facility] 15[facility]43:59 Test Item Value Reference Range Interpretation Comments LIPASE (test code = 4020249830) 210 U/L 0-220 Lab Interpretation (test code = Normal 55785-6) [facility]manACTIVATED PARTIAL THRMPLAS [id number] 15:41:37 Test Item Value Reference Range Interpretation Comments APTT Patient (test See_Comment [Automat ed code = 3173-2) message] The system which generated this result transmitted reference range : 23 - 38 Seconds . The reference range was not used to interpr et this result as normal/abnormal . NETTIE (test code = NETTIE) The [facility] patient population mean normal value for aPTT is 30 seconds. Lab Interpretation Normal (test code = 32477-7) [facility]manPROTHROMBIN TIME / [id number] 15:39:37 Test Item Value Reference Range Interpretation Comments PROTIME PATIENT (test See_Comment [Auto mated message] code = 5964-2) The system wh ich generated this result transmitted ref erence range: 12.0 - 1 4.7 Seconds. The re ference range was not u sed to interpret this result as normal/abnor mal. INR (test code = 6301-6) Nor mal INR <1.1; Warfarin Therap eutic range 2.0 to 3. 0 or 2.5 to 3.5, dep ending upon the indica tions. Lab Interpretation (test Normal code = 24736-6) [facility]manCBC WITH [id number] 15:33:39 Test Item Value Reference Range Interpretation Comments WBC (test code = See_Comment [Automated 6890-2) message] The sy stem which generated this result transmitted reference range : 4.30 - 11.10 10*3/?L. The reference range was not used to interpret this result as normal/abnormal . RBC (test code = See_Comment [Automated 349-8) message] The sy stem which generated this result transmitted reference range : 3.93 - 5.25 10*6/?L. The reference range was not used to interpret this result as normal/abnormal . HGB (test code = 14.4 g/dL 11.6-15 718-7) HCT (test code = 42.8 % 35.7-45.2 4544-3) MCV (test code = 92.6 fL 80.6-95.5 787-2) MCH (test code = 31.2 pg 25.9-32.8 785-6) MCHC (test code = 33.6 g/dL 31.6-35.1 786-4) RDW-SD (test code = 41.8 fL 39-49.9 32375-6) RDW-CV (test code = 12.2 % 12-15.5 788-0) PLT (test code = See_Comment [Automated 777-3) message] The sy stem which generated this result transmitted reference range : 166 - 358 10*3/ ?L. The reference r jesica was not used to interpret this result as normal/abnormal . MPV (test code = 8.3 fL 9.5-12.9 L 36434-3) NRBC/100 WBC (test See_Comment [Automat ed code = 9764920663) message] The system which generated this result transmitted reference range : 0.0 - 10.0 /100 WBCs. The refer ence range was not u sed to interpret th is result as normal/abnormal . NRBC x10^3 (test code See_Comment [Auto mated = 2473236410) message] The s ystem which generated this result transmitted reference range : 10*3/?L. The reference range was not used to interpret this result as normal/abnormal . GRAN MAT (NEUT) % 67.1 % (test code = 770-8) IMM GRAN % (test code 0.30 % = 9645884133) LYMPH % (test code = 22.8 % 736-9) MONO % (test code = 9.0 % 5905-5) EOS % (test code = 0.4 % 713-8) BASO % (test code = 0.4 % 706-2) GRAN MAT x10^3(ANC) 6.41 10*3/uL 1.88-7.09 (test code = 3910340987) IMM GRAN x10^3 (test 0.03 10*3/uL 0-0.06 code = 8595583793) LYMPH x10^3 (test code 2.18 10*3/uL 1.32-3.29 = 731-0) MONO x10^3 (test code 0.86 10*3/uL 0.33-0.92 = 742-7) EOS x10^3 (test code = 0.04 10*3/uL 0.03-0.39 711-2) BASO x10^3 (test code 0.04 10*3/uL 0.01-0.07 = 704-7) Lab Interpretation Abnormal (test code = 32632-0) [facility]POC-Glucose [id number] 06:20:00 Test Item Value Reference Range Interpretation Comments POC-Glucose Meter (test 130 mg/dL 70-110 H : No tified RN/: code = 1538) TESTED AT [address], [address]: Used Car Manager/Techni marielos ID = [id number] for CAREY KEMP Lab Interpretation (test Abnormal code = 21190-5) [facility] CenterPO[facility] [id number] 06:20:00 Test Item Value Reference Range Interpretation Comments POC-GLUCOSE METER 130 mg/dL 70-110 H : Notified RN/MD: (NAZARIO) (test code = TESTED AT [place] [address] 1538) [facility], [address]: Used Car Manager/Techni marielos ID = [id number] for ROBIN KEMP POCT-GLUCOSE [id number] 00:19:00 Test Item Value Reference Range Interpretation Comments POC-GLUCOSE METER 114 mg/dL 70-110 H : Notified RN/: (NAZARIO) (test code = TESTED AT [place] [address] 1538) [facility], [address]: Used Car Manager/Techni marielos ID = [id number] for ROBIN KEMP SARS-CoV2/RT-PCR (Asymptomatic ONLY)2021-01-18 19:18:00 Test Item Value Reference Range Interpretation Comments SARS-COV2/RT-PCR (test Negative Negative code = 70397-8) NETTIE (test code = NETTIE) Negative result [...] the Act. Testing was performed using the [employer] SARS-CoV-2 assay. Fact Sheet for Healthcare Providers:https://www.abelardo matos/taco/RT SARS-CoV-2 HCP Fact Sheet 51-144052.pdf Fact Sheet for Healthcare Patients:https://www.gonzalo morales.landon/taco/RT SARS-CoV-2 Patient Fact Sheet EN 51-095698E4.pdf Lab Interpretation Normal (test code = 63464-4) [facility]2021-01-18 19:18:00 Test Item Value Reference Range Interpretation Comments SARS-COV2/RT-PCR (test code = Negative Negative 2201132) Negative result for this test determines that [...] 564(g) of the Act.Testing was performed using [employer] SARS-CoV-2 assay.Fact Sheet for Healthcare Providers:https://www.[employer].landon/taco/RT SARS-CoV-2 HCP Fact Sheet 51- 003635.pdfFact Sheet for Healthcare Patients:https://www.Geo[employer]ics.landon/taco/RT SARS-CoV-2 Patient Fact Sheet EN 51-210295N9.pdfPOCT-GLUCOSE [id number] 18:11:00 Test Item Value Reference Range Interpretation Comments POC-GLUCOSE METER 125 mg/dL 70-110 H : [facility] (NAZARIO) (test code = JOAN Haddad [place], 1538) [address]: Used Car Manager/Techni marielos ID = [id number] for Gabriel Minaya POCT-GLUCOSE [id number] 13:14:00 Test Item Value Reference Range Interpretation Comments POC-GLUCOSE METER 103 mg/dL 70-110 : [facility] (BEAKER) (test code = JOAN Hadd[place], 1538) [address]: Used Car Manager/Techni marielos ID = [id number] for Ca margrettGabriel POCT-GLUCOSE [id number] 12:29:00 Test Item Value Reference Range Interpretation Comments POC-GLUCOSE METER 108 mg/dL 70-110 : TESTED A T [facility] 6720 (BEAKER) (test code = JOAN Hadd[place], 1538) [address]: Used Car Manager/Techni marielos ID = [id number] for Ca vitt, Eminae Basic Metabolic [id number] 10:16:00 Test Item Value Reference Range Interpretation [...] Calcium (test code = 8.8 mg/dL 8.4-10.2 65007-6) EGFR (test code = 92 mL/min/1.73 [place] [address]-0) NOT ACCURATE CREATININE CLEARANCE IN PREDICTING GLOMERULAR FILTRATION RATE . ESTIMATED GFR I S NOT APPLICABLE FOR DIALYSIS PATIENTS. NETTIE (test code = NETTIE) Used Car Manager ID - PIAYA L Lab Interpretation Abnormal (test code = 35976-8) [facility] CenterBASAINT [facility] METABOLIC [id number] 10:16:00 Test Item Value Reference Range Interpretation [...] S NOT APPLICABLE FOR DIALYSIS PATIEN TS. Used Car Manager ID - PIAYA LCBC with platelet count + automated [id number] 06:35:00 Test Item Value Reference Range Interpretation Comments WBC (test code = 6690-2) 12.6 See_Comment H [A utomated message] The system [employer] generated this result transmitted ref erence range: 3.5 - 10 .5 K/L. The refe rence range was not u sed to interpret this result as normal/abnor mal. RBC (test code = 789-8) 3.22 See_Comment L [Au tomated message] The system [employer] generated this result transmitted ref erence range: 3.93 - 5 .22 M/L. The refe rence range was not u sed to interpret this result as normal/abnor mal. MCHC (test code = 786-4) 31.4 See_Comment L [A utomated message] The system [employer] generated this result transmitted ref erence range: [...] code = 450 See_Comment [Aut omated message] 547-3) The system [employer] generated this result transmitted ref erence range: 150 - 45 0 K/CU MM. The referen ce range was not u sed to interpret this result as normal/abnor mal. MPV (test code = 8.5 fL 9.4-12.3 L 03184-7) nRBC (test code = 413) 0 See_Comment [Aut omated message] The system [employer] generated this result transmitted ref erence range: [...] H [Aut omated message] 670) The system [employer] generated this result transmitted ref erence range: 1.56 - 6 .13 K/L. The refe rence range was not u sed to interpret this result as normal/abnor mal. # Lymphs (test code = 1.78 See_Comment [Auto mated message] 414) The system [employer] generated this result transmitted ref erence range: 1.18 - 3 .74 K/L. The refe rence range was not u sed to interpret this result as normal/abnor mal. # Monos (test code = 0.91 See_Comment H [Autom ated message] 415) The system [employer] generated this result transmitted ref erence range: 0.24 - 0 .36 K/L. The refe rence range was not u sed to interpret this result as normal/abnor mal. # Eos (test code = 416) 0.29 See_Comment [Au tomated message] The system [employer] generated this result transmitted ref erence range: 0.04 - 0 .36 K/L. The refe rence range was not u sed to interpret this result as normal/abnor mal. # Baso (test code = 417) 0.04 See_Comment [A utomated message] The system [employer] generated this result transmitted ref erence range: 0.01 - 0 .08 K/L. The refe rence range was not u sed to interpret this result as normal/abnor mal. Immature 1 % 0-1 Granulocytes-Relative (test code = 2801) Lab Interpretation (test Abnormal code = 98228-0) [facility] [id number] 06:35:00 Test Item Value Reference Range Interpretation Comments POC-GLUCOSE METER 114 mg/dL 70-110 H : TESTED A T [facility] 6720 (BEAKER) (test code = JOAN [place], 1538) [address]: Used Car Manager/Techni marielos ID = [id number] for BOLA GARVIN CBC W/PLT COUNT & AUTO [id number] 06:35:00 Test Item Value Reference Range Interpretation [...] PERCENT (BEAKER) (test code = 2801) POCT-GLUCOSE [id number] 00:53:00 Test Item Value Reference Range Interpretation Comments POC-GLUCOSE METER 112 mg/dL 70-110 H : [facility] 67[address] [facility] (test code = JOAN Haddad [facility], 1538) [address]: Used Car Manager/Techni marielos ID = [id number] for BECKY CAROLYN JACINTAAlanna POCT-GLUCOSE [id number] 17:41:00 Test Item Value Reference Range Interpretation Comments POC-GLUCOSE METER 120 mg/dL 70-110 H : TESTED A T [facility] 6720 (BEAKER) (test code [facility], = 1538) [address]: Used Car Manager/Techni marielos ID = [id number] for TSEG GAI, TSIGHEREDA EEG AWAKE AND [id number] 16:01:00For STAT EEG- after 5 PM weekdays, weekends and holidays, page the on-call EEG TechReason for exam:->Altered mental status, waxing and waning neurological exam [facility] : 1945 Sex: FNEUROPHYSIOLOGY EEG REPORT DATES OF TEST: 01/17/21DATE OF REPORT: 01/17/21Name: Sonu ArellanoMRN: [id number]: 21-1278Start time: 14:51Stop time: 15:37KUF76: R56.9 CPT: 33131 History: 75 yo female with history of HTN [...] reactive to sensory stimulation applied by the creative technologist as evidenced bythe predominance of faster frequency spectra following sensory stimulation. Sleep patterns were not recorded.Focal features:a. Focal background attenuation and slow1-3 hz activity, right hemisphereb. Intermittent focal slow 1-3 hz activity left temporal and occipital𓿋Events: No electro-clinical or electrographic seizuresHyperventilation was not performed. PHOTIC STIMULATION: Photic stimulat ion across a broad frequency spectrum (1-33 Hz) did not trigger abnormal waveforms or responses. 𕞫ECG: Sinus rhythm IMPRESSION: Abnormal EEG in comac. [...] electro-clinical or electrographic seizures observed during this recording.䯙𕫣䬟Melody Cisse MD, PhDEpilepsy Attending AWAKE AND [id number] 16:01:00Interface, External Ris In - 01/17/2021 4:01 PM CDTNEUROPHYSIOLOGY EEG REPORT DATES OF TEST: 01/17/21DATE OF REPORT: 01/17/21Name: Sonu ArellanoMRN: [id number]: 21-1278Start time: 14:51Stop time:15:07ICE44: R56.9 CPT: 19007𒟓History: 75 yo female with history of HTN [...] reactive to sensory stimulation applied by the creative technologist as evidenced by the predominance of faster frequency spectra following sensory stimulation. Sleep patterns were not recorded.Focal features:a. Focal background attenuation and slow1-3 hz activity, right hemisphereb. Intermittent focal slow 1-3 hz activity left temporal and occipital𒌵Events: No electro-clinical or electrographic seizuresHyperventilation was not performed. PHOTIC STIMULATION: Photic stimulation across a broad frequency spectrum (1-33Hz) did not trigger abnormal waveforms or responses. 𓞶ECG: Sinus rhythm IMPRESSION: Abnormal EEG in comac. [...] electro-clinical or electrographic seizures observed during this recording.𘀉㥖𗜋Melody Cisse MD, PhDEpilepsy Attending [facility] CenterUrinalysis w/Microscopic + Reflex to Culture 2021-01-17 15:09:00 Test Item Value Reference Range Interpretation Comments Color, UA (test code Light Yellow = 5778-6) Clarity, UA (test Clear code = 5767-9) Specific Admire, UA 1.021 1.001-1.035 (test code = 5811-5) pH, UA (test code = 6.0 5.0-8.0 5803-2) Protein, UA (test 20 mg/dL Negative A code = 70367-9) Glucose, UA (test Negative Negative code = 365) Ketones, UA (test Negative Negative code = 2514-8) Bilirubin, UA (test Negative Negative code = 22822-5) Blood, UA (test code Small Negative A = 36351-7) Nitrite, UA (test Positive Negative A code = 5802-4) Leukocytes, UA (test Large Negative A code = 5799-2) Urobilinogen, UA 0.2 mg/dL 0.2-1 (test code = 35552-8) RBC, UA (test code = 7 See_Comment [Autom ated 21981-9) message] The system which generated this result [...] . Bacteria, UA (test Few code = 31587-7) Mucus (test code = Rare 8247-9) Squam Epithel, UA <1 See_Comment [Automate d (test code = 53867-1) jadag e] The system which generated this result transmitted reference range : /HPF. The reference range was not used to interpret this result as normal/abnormal . Crystals, Urine (test None Seen code = 63322-1) Yeast (test code = Occasional 32910-4) Specimen Source (test code = 2795) NETTIE (test code = NETTIE) Used Car Manager ID - [auto]Used Car Manager ID - tech Lab Interpretation Abnormal (test code = 88062-4) [facility] CenterURINALYSIS W/ REFLEX URINE [id number] 15:09:00 Test Item Value Reference Range Interpretation [...] Occasional 1585) SOURCE(BEAKER) (test code = 2795) Used Car Manager ID - [auto]Used Car Manager ID - techPOCT-GLUCOSE [id number] 12:38:00 Test Item Value Reference Range Interpretation Comments POC-GLUCOSE METER 119 mg/dL 70-110 H : TESTED A T [facility] 6720 (NAZARIO) (test code [facility], = 1538) [address]: Used Car Manager/Techni marielos ID = [id number] for TSEG GAI, TSIGHEREDA CT, CTANGIO [id number] 12:18:00Unlisted Reason for Exam - Click Yes and Enter Reason Below->YesUnlisted Reason for Exam->SAH s/p clip, AMS [facility] : 1945 Sex: FAddendum BeginsREPORT STATUS:A 3-D reconstructions were added to PACS after the report was finalized. These do not significantly alter the interpretation. Signed: Opal Carrillo MDReportVerified Date/Time: 01/17/2021 12:18:02 Addendum EndsFINAL REPORT CLINICAL HISTORY: Unlisted Reason for ExamSAH s/p clip, AMS TECHNIQUE: Initially, noncontrast head CT images were performed. Contiguous contrast-enhanced axial images through the head with coronal and sagittal reformations to assess the arterial circulation. 3-D reconstructions were not available at time of interpretation. This exam was performed according to the departmental dose optimization program which include s automated exposure control, adjustment of the mA [...] the right anterior temporal and left occipital regions.Unchanged extent of right MCA territory infarct. 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 Signed: Opal Carrillo MDReport Verified Date/Time: 01/16/2021 18:36:53 RAD, CHEST, 1 VIEW, NON [id number] 10:52:00Reason for exam:->amsShould this be performed at the bedside?->Yes [facility] : 1945 Sex: FFINALREPORT INDICATION: ams COMPARISON: None TECHNIQUE: Single frontal view of the chest. FINDINGS: Lungs and pleura: Right greater than left airspace diseaseHeart and mediastinum: Normal heart size. Unremarkable mediastinal contours.Osseous structures: No acute abnormality.Other: None. IMPRESSION: Right greater than left airspace disease concerning for pneumonia Signed: Ana Arreolagenevievehiwot Verified Date/Time: 01/17/2021 10:52:35 Reading Location: [facility] Radiology ReadingRoom XR chest 1 view portable / [id number] 10:52:00Interface, External Ris In - 01/17/2021 10:54 AM CDTFINAL REPORT INDICATION: ams COMPARISON: None TECHNIQUE: Single frontal view of the chest. FINDINGS: Lungs and pleura: Right greater than left airspace diseaseHeart and mediastinum: Normal heart size. Unremarkable mediastinal cont ours.Osseous structures: No acute abnormality.Other: None. IMPRESSION: Right greater than left airspace disease concerning for pneumonia Signed: Ana Arreola Kathiahiwot Verified Date/Time: 01/17/2021 10:52:35 Reading Location: [facility] Radiology Reading Room [facility])2021-01-17 10:13:00 Test Item Value Reference Range Interpretation Comments SARS-COV2/RT-PCR (test Negative Not Detected, Negative, code = 8338468) See external report for linked test SARS-COV-2 PERFORMING LAB [facility] RIANNA (test code = 6890585) Negative result for this test determines that [...] of the Act.Fact Sheet for Healthcare Prov iders:https://www.Optifreeze/sites/default/files/product/documents/Fact_Sheet_HC _Chgkinndu_Ahkb_MFWN-GjK-7.pdfFact Sheet for Healthcare Patients:https://www.Optifreeze/sites/default/files/product/docume nts/Eodi_Zxfso_Pdqinpak_Sudb_SLNV-LqA-7.pdfPerforming Laboratory:[facility], [place] [address]Uabcik Differential 2021-01-17 09:59:00 Test Item Value Reference [...] = 3438) NETTIE (test code = NETTIE) Used Car Manager ID - Margarita OverholtUser comments: Slide comments: Lab Interpretation (test Abnormal code = 89147-5) [facility] W/PLT COUNT & AUTO [id number] 09:59:00 Test Item Value Reference Range Interpretation [...] CONCENTRATION Increased (CELLAVISION)(BEAKER) (test code = 3438) Used Car Manager ID - Margarita OverholtUser comments: Slide comments:[id number] 07:02:00 Test Item Value Reference Range Interpretation Comments Magnesium (test code = 2.0 mg/dL 1.6-2.6 07541-7) NETTIE (test code = NETTIE) Used Car Manager ID - BEN Wade Lab Interpretation (test Normal code = 15352-4) [facility] CenterPhosphorus2021-08-26 07:02:00 Test Item Value Reference Range Interpretation Comments Phosphorus (test code = 3.1 mg/dL 2.3-4.7 2777-1) NETTIE (test code = NETTIE) Used Car Manager ID - BEN Wade Lab Interpretation (test Normal code = 86437-9) [facility] CenterBASIC METABOLIC [id number] 07:02:00 Test Item Value Reference Range Interpretation [...] S NOT APPLICABLE FOR DIALYSIS PATIEN TS. Used Car Manager ID - BEN [id number] 07:02:00 Test Item Value Reference Range Interpretation Comments MAGNESIUM (BEAKER) (test code = 2.0 mg/dL 1.6-2.6 627) Used Car Manager ID - BEN [id number] 07:02:00 Test Item Value Reference Range Interpretation Comments PHOSPHORUS (BEAKER) (test code = 3.1 mg/dL 2.3-4.7 604) Used Car Manager ID - BEN MPOCT-GLUCOSE [id number] 05:38:00 Test Item Value Reference Range Interpretation Comments POC-GLUCOSE METER 155 mg/dL 70-110 H : TESTED A T [facility] 6720 (BEAKER) (test code = [place], 1538) [address]: Used Car Manager/Techni marielos ID = [id number] for BOLA GARVIN POCT-GLUCOSE [id number] 00:31:00 Test Item Value Reference Range Interpretation Comments POC-GLUCOSE METER 130 mg/dL 70-110 H : TESTED A T [facility] 6720 (NAZARIO) (test code = JOAN Haddad [facility], 1538) [address]: Used Car Manager/Techni marielos ID = [id number] for BOLA GARVIN CTA [id number] 18:36:00Interface, External Ris In - 01/17/2021 12:20 PM CDTAddendum BeginsREPORT STATUS:A 3-D reconstructions were added to PACS after the report was finalized. These do not significantlyalter the interpretation. Signed: Opal Carrilloort Verified Date/Time: 01/17/2021 12:18:02 Addendum EndsFINAL REPORT [...] Signed: Opal Crow Verified Date/Time: 01/16/2021 18:36:53 [facility]PO[facility] [id number] 18:33:00 Test Item Value Reference Range Interpretation Comments POC-GLUCOSE METER 91 mg/dL 70-110 : TESTED A T [facility] 6720 (BEAKER) (test code = JOAN Haddad [facility], 1538) [address]: Used Car Manager/Techni marielos ID = [id number] for Lucía Guajardo POCT-GLUCOSE [id number] 12:07:00 Test Item Value Reference Range Interpretation Comments POC-GLUCOSE METER 131 mg/dL 70-110 H : TESTED A T [facility] 6720 (BEAKER) (test code [facility], = 1538) [address]: Used Car Manager/Techni marielos ID = [id number] for ESSENCE MENDOZA, LUNAEREDA POCT-GLUCOSE [id number] 07:31:00 Test Item Value Reference Range Interpretation Comments POC-GLUCOSE METER 129 mg/dL 70-110 H : TESTED A T [facility] 6720 (BEAKER) (test code = JOAN Haddad [facility], 1538) [address]: Used Car Manager/Techni marielos ID = [id number] for DE NNIS, PREETI BASIC METABOLIC [id number] 05:07:00 Test Item Value Reference Range Interpretation [...] S NOT APPLICABLE FOR DIALYSIS PATIEN TS. Used Car Manager ID - EYAD [id number] 05:07:00 Test Item Value Reference Range Interpretation Comments MAGNESIUM (BEAKER) (test code = 2.0 mg/dL 1.6-2.6 627) Used Car Manager ID - EYAD [id number] 05:07:00 Test Item Value Reference Range Interpretation Comments PHOSPHORUS (BEAKER) (test code = 3.3 mg/dL 2.3-4.7 604) Used Car Manager ID - EYAD LCBC W/PLT COUNT & AUTO [id number] 04:53:00 Test Item Value Reference Range Interpretation [...] PERCENT (BEAKER) (test code = 2801) POCT-GLUCOSE [id number] 00:23:00 Test Item Value Reference Range Interpretation Comments POC-GLUCOSE METER 108 mg/dL 70-110 : TESTED A T [facility] 6720 (BEAKER) (test code = [facility], 1538) [address]: Used Car Manager/Techni marielos ID = [id number] for DE NNIS, PREETI POCT-GLUCOSE [id number] 18:04:00 Test Item Value Reference Range Interpretation Comments POC-GLUCOSE METER 125 mg/dL 70-110 H : TESTED A T [facility] 6720 (BEAKER) (test code [facility], = 1538) [address]: Used Car Manager/Techni marielos ID = [id number] for TSEG GAI, TSIGHEREDA POCT-GLUCOSE [id number] 12:25:00 Test Item Value Reference Range Interpretation Comments POC-GLUCOSE METER 107 mg/dL 70-110 : TESTED A T [facility] 6720 (BEAKER) (test code [facility], = 1538) [address]: Used Car Manager/Techni marielos ID = [id number] for TSEG GAI, TSIGHEREDA BASIC METABOLIC [id number] 07:39:00 Test Item Value Reference Range Interpretation [...] S NOT APPLICABLE FOR DIALYSIS PATIEN TS. Used Car Manager ID Aida CASTANO [id number] 07:39:00 Test Item Value Reference Range Interpretation Comments MAGNESIUM (BEAKER) (test code = 2.2 mg/dL 1.6-2.6 627) Used Car Manager ID - EYAD [id number] 07:39:00 Test Item Value Reference Range Interpretation Comments PHOSPHORUS (BEAKER) (test code = 2.9 mg/dL 2.3-4.7 604) Used Car Manager ID Aida CASTANO LPOCT-GLUCOSE [id number] 07:04:00 Test Item Value Reference Range Interpretation Comments POC-GLUCOSE METER 101 mg/dL 70-110 : [facility] (BEAKER) (test code = ABDIRHAMANKIERAN Haddad [facility], 1538) [address]: Used Car Manager/Techni marielos ID = [id number] for DE NNIS, PREETI CBC W/PLT COUNT & AUTO [id number] 05:55:00 Test Item Value Reference Range Interpretation [...] PERCENT (BEAKER) (test code = 2801) POCT-GLUCOSE [id number] 00:44:00 Test Item Value Reference Range Interpretation Comments POC-GLUCOSE METER 94 mg/dL 70-110 : TESTED Alanna Jarvis [facility] 6720 (BEAKER) (test code = [place]AN [place], 1538) [address]: Used Car Manager/Techni marielos ID = [id number] for PREETI BRANDT POCT-GLUCOSE [id number] 18:37:00 Test Item Value Reference Range Interpretation Comments POC-GLUCOSE METER 95 mg/dL 70-110 : TESTED A T [facility] 6720 (BEAKER) (test code = JOAN LONG [place], 1538) [address]: Used Car Manager/Techni marielos ID = [id number] for FRANSISCO MICHEL SPUTUM CULTURE + GRAM [id number] 16:16:00 Test Item Value Reference Range Interpretation Comments CULTURE (BEAKER) (test SALMONELLA A 1+ Sa lmonella code = 1095) ENTERICA SSP enterica ssp ENTERICA entericaSent to [facility] for speciation and serotyping Ampicillin (test [...] >25 epithelial (BEAKER) (test code = cells 709953) GRAM STAIN RESULT >25 epithelial (BEAKER) (test code = cells 614161) GRAM STAIN RESULT 1+ gram negative (BEAKER) (test code = rods 189265) GRAM STAIN RESULT <1+ gram (BEAKER) (test code = positive cocci 388764) in pairs 2+ Normal respiratory anjel [id number] 16:06:00 Test Item Value Reference Range Interpretation Comments Sodium (test code = 137 meq/L 156-804 1483-2) NETTIE (test code = NETTIE) Used Car Manager ID - ADMIN Lab Interpretation (test Normal code = 35190-8) [facility] 16:06[facility]00 Test Item Value Reference Range Interpretation Comments SODIUM (BEAKER) (test code = 381) 137 meq/L 136-145 Used Car Manager ID - ADMINPOCT-GLUCOSE [id number] 11:46:00 Test Item Value Reference Range Interpretation Comments POC-GLUCOSE METER 113 mg/dL 70-110 H : TESTED A T [facility] 6720 (BEAKER) (test code = JOAN [place]add[place], 1538) [address]: Used Car Manager/Techni marielos ID = [id number] for FRANSISCO ESCALANTE POCT-GLUCOSE [id number] 05:56:00 Test Item Value Reference Range Interpretation Comments POC-GLUCOSE METER 96 mg/dL 70-110 : TESTED A T [facility] 6720 (BEAKER) (test code = [facility]oo [facility], 1538) 83[address]: Used Car Manager/Techni marielos ID = [id number] for BOLA ESTRADA BASIC METABOLIC [id number] 05:32:00 Test Item Value Reference Range Interpretation [...] S NOT APPLICABLE FOR DIALYSIS PATIEN TS. Used Car Manager ID - [id number] 05:32:00 Test Item Value Reference Range Interpretation Comments MAGNESIUM (BEAKER) (test code = 2.2 mg/dL 1.6-2.6 627) Used Car Manager ID - NCRAIQUJWGAI3501-44-17 05:32:00 Test Item Value Reference Range Interpretation Comments PHOSPHORUS (BEAKER) (test code = 3.5 mg/dL 2.3-4.7 604) Used Car Manager ID - DBCBC W/PLT COUNT & AUTO [id number] 05:06:00 Test Item Value Reference Range Interpretation [...] PERCENT (BEAKER) (test code = 2801) POCT-GLUCOSE [id number] 00:03:00 Test Item Value Reference Range Interpretation Comments POC-GLUCOSE METER 90 mg/dL 70-110 : TESTED A T [facility] 6720 (BEAKER) (test code = [facility], 1538) 11215: Used Car Manager/Techni marielos ID = [id number] for BOLA ESTRADA POCT-GLUCOSE [id number] 16:51:00 Test Item Value Reference Range Interpretation Comments POC-GLUCOSE METER 101 mg/dL 70-110 : TESTED A T [facility] 6720 (BEAKER) (test code = [facility], 1538) 51366: Used Car Manager/Techni marielos ID = [id number] for An derphillip, Colleen Type and screen, [id number] 16:09:00 Test Item Value Reference Range Interpretation Comments ABO/RH AUTOMATED (BEAKER) (test B POSITIVE code = 2260) Ab Scrn (test code = 890-4) NEGATIVE [facility]2021-08-22 15:25:00 Test Item Value Reference Range Interpretation Comments SODIUM (BEAKER) (test code = 381) 137 meq/L 136-145 Used Car Manager ID - DBPOCT-GLUCOSE [id number] 12:21:00 Test Item Value Reference Range Interpretation Comments POC-GLUCOSE METER 107 mg/dL 70-110 : TESTED A T [facility] 6720 (BEAKER) (test code = [facility], 1538) 45498: Used Car Manager/Techni marielos ID = [id number] for An joe, Colleen POCT-GLUCOSE [id number] 05:31:00 Test Item Value Reference Range Interpretation Comments POC-GLUCOSE METER 103 mg/dL 70-110 : TESTED A T [facility] 6720 (BEAKER) (test code = [facility], 1538) 91363: Used Car Manager/Techni marielos ID = [id number] for BOLA GARVIN BASIC METABOLIC [id number] 05:20:00 Test Item Value Reference Range Interpretation [...] S NOT APPLICABLE FOR DIALYSIS PATIEN TS. Used Car Manager ID - CHRISTINA [id number] 05:20:00 Test Item Value Reference Range Interpretation Comments MAGNESIUM (BEAKER) (test code = 2.1 mg/dL 1.6-2.6 627) Used Car Manager ID - CHRISTINA [id number] 05:20:00 Test Item Value Reference Range Interpretation Comments PHOSPHORUS (BEAKER) (test code = 2.9 mg/dL 2.3-4.7 604) Used Car Manager ID - CHRISTINA WCBC W/PLT COUNT & AUTO [id number] 04:44:00 Test Item Value Reference Range Interpretation [...] PERCENT (BEAKER) (test code = 2801) POCT-GLUCOSE [id number] 23:57:00 Test Item Value Reference Range Interpretation Comments POC-GLUCOSE METER 125 mg/dL 70-110 H : TESTED A T [facility] 6720 (BEAKER) (test code = [facility], 1538) 74056: Used Car Manager/Techni marielos ID = [id number] for BECKY BOLA LEON POCT-GLUCOSE [id number] 17:26:00 Test Item Value Reference Range Interpretation Comments POC-GLUCOSE METER 134 mg/dL 70-110 H : TESTED A T [facility] 6720 (BEAKER) (test code = [facility], 1538) 11835: Used Car Manager/Techni marielos ID = [id number] for An Colleen diaz Blood Culture - Routine (Left Venipuncture)2021-01-12 16:00:00 Test Item Value Reference Range Interpretation Comments Result (test code = No growth in 5 days 6463-4) [facility] [id number] 16:00:00 Test Item Value Reference Range Interpretation Comments CULTURE (BEAKER) (test No growth in 5 days code = 1095) BLOOD [id number] 16:00:00 Test Item Value Reference Range Interpretation Comments CULTURE (BEAKER) (test No growth in 5 days code = 1095) Vancomycin level, [id number] 14:11:00 Test Item Value Reference Range Interpretation Comments Vancomycin Tr (test code = 19.6 ug/mL 10- 4092-3) NETTIE (test code = NETTIE) Used Car Manager ID - BEN M Lab Interpretation (test Normal code = 46355-4) [facility] CenterVANCOMYCIN LEVEL, [id number] 14:11:00 Test Item Value Reference Range Interpretation Comments VANCOMYCIN TROUGH (BEAKER) (test 19.6 ug/mL 10.0-20.0 code = 522) Used Car Manager ID - BEN [id number] 14:07:00 Test Item Value Reference Range Interpretation Comments SODIUM (BEAKER) (test code = 381) 144 meq/L 136-145 Used Car Manager ID - BEN MPOCT-GLUCOSE [id number] 12:10:00 Test Item Value Reference Range Interpretation Comments POC-GLUCOSE METER 121 mg/dL 70-110 H : TESTED Alanna T [facility] 6720 (BEAKER) (test code = [place], 1538) 23087: Used Car Manager/Techni marielos ID = [id number] for Colleen Marquez CBC W/PLT COUNT & AUTO [id number] 10:58:00 Test Item Value Reference Range Interpretation [...] CONCENTRATION Adequate (CELLAVISION)(BEAKER) (test code = 3438) Used Car Manager ID - Anamaria Engel comments: Slide comments:POCT-GLUCOSE METER 2021-01-12 08:26:00 Test Item Value Reference Range Interpretation Comments POC-GLUCOSE METER 123 mg/dL 70-110 H : TESTED Alanna Jarvis [facility] 6720 (BEAKER) (test code = ABDIRAHMANKIERAN LONG [place], 1538) 878[address]: Used Car Manager/Techni marielos ID = [id number] for An Colleen diaz BASIC METABOLIC [id number] 06:40:00 Test Item Value Reference Range Interpretation [...] S NOT APPLICABLE FOR DIALYSIS PATIEN TS. Used Car Manager ID - BEN [id number] 06:40:00 Test Item Value Reference Range Interpretation Comments MAGNESIUM (BEAKER) (test code = 2.1 mg/dL 1.6-2.6 627) Used Car Manager ID - BEN [id number] 06:40:00 Test Item Value Reference Range Interpretation Comments PHOSPHORUS (BEAKER) (test code = 3.0 mg/dL 2.3-4.7 604) Used Car Manager ID - BEN MPOCT-GLUCOSE [id number] 06:08:00 Test Item Value Reference Range Interpretation Comments POC-GLUCOSE METER 133 mg/dL 70-110 H : TESTED A T [facility] 6720 (BEAKER) (test code = [facility], 1538) 46684: Used Car Manager/Techni marielos ID = [id number] for DE NNIS, PREETI POCT-GLUCOSE [id number] 23:53:00 Test Item Value Reference Range Interpretation Comments POC-GLUCOSE METER 110 mg/dL 70-110 : TESTED A T [facility] 6720 (BEAKER) (test code = [facility], 1538) 78234: Used Car Manager/Techni marielos ID = [id number] for DE NNIS, PREETI ANG, INSERTION G TUBE, W/ [id number] 17:48:00 [facility] 1945 Sex: FFINALREPORT [...] MDReport Verified Date/Time: 01/11/2021 17:48:55 Reading Location: [place] [address] Angio Body Reading Room IR G-Tube Insertion [...] Lucas Verified Date/Time: 01/11/2021 17:48:55 Reading Location: [place] [address] Angio Body Reading Room [facility] [id number] 12:29:00 Test Item Value Reference Range Interpretation Comments POC-GLUCOSE METER 106 mg/dL 70-110 : TESTED A T [facility] 6720 (BEAKER) (test code [facility], = 1538) 16453: Used Car Manager/Techni marielos ID = [id number] for JUAN ANTONIO TOLBERT [id number] 10:43:00 Test Item Value Reference Interpretation Comments Range Protime (test code = 13.6 See_Comment [Autom ated 7982-2) message] The system which generated this result transmitted reference range : 11.9 - 14.2 seconds. The reference range was not used to interpret this result as normal/abnormal . INR (test code = 1.06 See_Comment [Automated 0591-6) message] The system which generated this result transmitted reference range : <=5.90. The reference range was not used to interpret this result as normal/abnormal . PTT (test code = 28.5 See_Comment [Automated 54026-0) message] The system which generated this result [...] valves. Lab Interpretation Normal (test code = 15705-8) [facility] CenterPT/[id number] 10:43:00 Test Item Value Reference Range Interpretation [...] mechanical heart valves.CBC W/PLT COUNT & AUTO [id number] 07:27:00 Test Item Value Reference Range Interpretation [...] CONCENTRATION Adequate (CELLAVISION)(BEAKER) (test code = 3438) Used Car Manager ID - Margarita OverholtUser comments: Slide comments:POCT-GLUCOSE METER 2021-01-11 06:34:00 Test Item Value Reference Range Interpretation Comments POC-GLUCOSE METER 132 mg/dL 70-110 H : [facility] ([facility] (test code = [facility], 1538) 76759: Used Car Manager/Techni marielos ID = [id number] for DE NNIS, PREETI BASIC METABOLIC [id number] 06:32:00 Test Item Value Reference Range Interpretation [...] S NOT APPLICABLE FOR DIALYSIS PATIEN TS. Used Car Manager ID - EYAD [id number] 06:32:00 Test Item Value Reference Range Interpretation Comments MAGNESIUM (BEAKER) (test code = 2.5 mg/dL 1.6-2.6 627) Used Car Manager ID - EYAD [id number] 06:32:00 Test Item Value Reference Range Interpretation Comments PHOSPHORUS (BEAKER) (test code = 2.5 mg/dL 2.3-4.7 604) Used Car Manager ID - PIFAVIOLA [id number] 06:32:00 Test Item Value Reference Range Interpretation Comments SODIUM (BEAKER) (test code = 381) 151 meq/L 136-145 H POCT-GLUCOSE [id number] 00:17:00 Test Item Value Reference Range Interpretation Comments POC-GLUCOSE METER 120 mg/dL 70-110 H : TESTED A T [facility] 6720 (BEAKER) (test code = [place], 1538) 637[address]: Used Car Manager/Techni marielos ID = [id number] for DE NNIS, PREETI Clostridium difficile GDH [id number] 13:14:00 Test Item Value Reference Range Interpretation Comments C. Difficle Toxin Negative Negative (test code = 2392940945) C. Difficile GDH Negative Negative No indicati on of Antigen (test code = Clostri dium 4426209725) difficile infection and n o colonization. Discontinue enteric isolati on and therapy. NETTIE (test code = Testing performed NETTIE) by Ale[employer] Rapid Cassette Assay. For GDH, published sensitivity of the assay is 98.7% compared to cytotoxicity testing. For Toxin AB, published sensitivity is 87.8% and specificity 99.4% compared to cytotoxicity testing.Verificati on of kit performance was done by the [facility] Microbiology Lab prior to clinical use. Lab Interpretation Normal (test code = 14327-6) [facility] Center[facility]. DIFFICILE GDH [id number] 13:14:00 Test Item Value Reference Range Interpretation Comments CDT TOXIN (test code Negative Negative = 1017915360) CDT GDH ANTIGEN (test Negative Negative No ind ication of code = 5425437630) Clostridi um difficile infection and n o colonization. Discontinue ent barry isolation and t herapy. Testing performed by Alere Rapid Cassette Assay. For GDH, published sensitivity of the assay is 98.7% compared to cytotoxicity testing. For Toxin AB, published sensitivity is 87.8% and specificity 99.4% compared to cytotoxicity testing.Verification of kit performance was done by the [facility] MicrobiologyLab prior to clinical use.BASIC METABOLIC [id number] 09:56:00 Test Item Value Reference Range Interpretation [...] S NOT APPLICABLE FOR DIALYSIS PATIEN TS. Used Car Manager ID - [id number] 09:56:00 Test Item Value Reference Range Interpretation Comments MAGNESIUM (BEAKER) (test code = 2.3 mg/dL 1.6-2.6 627) Used Car Manager ID - [id number] 09:56:00 Test Item Value Reference Range Interpretation Comments PHOSPHORUS (BEAKER) (test code = 2.7 mg/dL 2.3-4.7 604) Used Car Manager ID - EMERSONVANCOMYCIN LEVEL, [id number] 09:05:00 Test Item Value Reference Range Interpretation Comments VANCOMYCIN TROUGH (BEAKER) (test 26.2 ug/mL 10.0-20.0 H code = 522) Used Car Manager ID - EMERSONCBC W/PLT COUNT & AUTO [id number] 08:45:00 Test Item Value Reference Range Interpretation [...] 417) IMMATURE GRANULOCYTES-RELATIVE 0 % 0-1 PERCENT (NAZARIO) (test code = 2801) POCT-GLUCOSE [id number] 06:14:00 Test Item Value Reference Range Interpretation Comments POC-GLUCOSE METER 128 mg/dL 70-110 H : Notified RN/MD: (NAZARIO) (test code = TESTED AT [facility] 67 1538) [facility], [address]: Used Car Manager/Techni marielos ID = [id number] for DO VE, CHEKARA POCT-GLUCOSE [id number] 23:35:00 Test Item Value Reference Range Interpretation Comments POC-GLUCOSE METER 120 mg/dL 70-110 H : Notified RN/MD: (NAZARIO) (test code = TESTED AT [facility] 67 1538) [facility], [address]: Used Car Manager/Techni marielos ID = [id number] for DO VE, CHEKARA SARS-COV2/RT-PCR ([facility])2021-01-09 23:13:00 Test Item Value Reference Range Interpretation Comments SARS-COV2/RT-PCR (test Negative Not Detected, Negative, code = 6916704) See external report for linked test SARS-COV-2 PERFORMING LAB [facility] RIANNA (test code = 1789600) Negative result for this test determines that [...] of the Act.Fact Sheet for Healthcare Prov iders:https://www.[employer]/sites/default/files/product/documents/Fact_Sheet_HC _Aqbexzccm_Duia_HSVZ-ZxE-8.pdfFact Sheet for Healthcare Patients:https://www.[employer]/sites/default/files/product/docume nts/Nrla_Gjnah_Vdjesdoz_Apsw_JOTY-FuA-2.pdfPerforming Laboratory:[facility], [place] [id number] 16:18:00 Test Item Value Reference Range Interpretation Comments SODIUM (BEAKER) (test code = 381) 149 meq/L 136-145 H Used Car Manager ID - BSPOCT-GLUCOSE [id number] 16:10:00 Test Item Value Reference Range Interpretation Comments POC-GLUCOSE METER 95 mg/dL 70-110 : TESTED A T [facility] 6720 (BEAKER) (test code = JOAN Haddad [facility], 1538) 485[address]: Used Car Manager/Techni marielos ID = [id number] for CERV ANTES, MICHELLE BASIC METABOLIC [id number] 03:37:00 Test Item Value Reference Range Interpretation [...] S NOT APPLICABLE FOR DIALYSIS PATIEN TS. Used Car Manager ID - CHRISTINA [id number] 03:37:00 Test Item Value Reference Range Interpretation Comments MAGNESIUM (BEAKER) (test code = 2.1 mg/dL 1.6-2.6 627) Used Car Manager ID - CHRISTINA AVAMSZRGXIL3694-53-22 03:37:00 Test Item Value Reference Range Interpretation Comments PHOSPHORUS (BEAKER) (test code = 2.4 mg/dL 2.3-4.7 604) Used Car Manager ID - CHRISTINA WCBC W/PLT COUNT & AUTO [id number] 03:20:00 Test Item Value Reference Range Interpretation [...] GRANULOCYTES-RELATIVE PERCENT (BEAKER) (test code = 2801) [id number] 17:53:00 Test Item Value Reference Range Interpretation Comments SODIUM (BEAKER) (test code = 381) 145 meq/L 136-145 Used Car Manager ID - corby eRAD, CHEST, 1 VIEW, NON [id number] 14:24:00Reason for exam:->ptxShould this be performed at the bedside?->Yes [facility] : 1945 Sex: FFINALREPORT CLINICAL HISTORY: ptx TECHNIQUE: 1 view of the chest. COMPARISON: 01/07/2021 IMPRESSION: A feeding tube again extends below the diaphragm. As before, there is no evidence forpneumothorax. Left basilar atelectasis is again seen. There is no significant appearing pleural fluid or cardiomegaly. Signed: Griselda Mcconnell MDReport Verified Date/Time: 01/08/2021 14:24:27 Reading Location: [facility] Radiology Reading Room URINALYSIS W/ REFLEX URINE [id number] 13:12:00 Test Item Value Reference Range Interpretation [...] = 1521) SOURCE(BEAKER) (test code = 2795) Used Car Manager ID - [auto]Used Car Manager ID - tech(CELLAVISION MANUAL DIFF)2021-01-08 09:19:00 Test [...] CONCENTRATION Adequate (CELLAVISION)(BEAKER) (test code = 3438) Used Car Manager ID - Louise Ike comments: Slide comments:Transcranial Doppler Complete (TCD)2021-01-08 08:52:55Barry Funes MD 01/09/2021 1[facility] Date: 01/07/21 Referring physician: MD Juan Indication: aSAH Maximal estimated mean blood flowvelocities (cm / sec): R EC ICA 43 L EC ICA 28 R Ophthalmic L Ophthalmic R MCA 42 R PABLO 18 R ICA R LAW TUTOR 31 L MCA 47 L PABLO 42 L ICA L LAW TUTOR 31 R vertebral 27 L vertebral 44 [...] I interpreted procedure Chele Farah Professor of NeurologyCorp[facility] W/PLT COUNT & AUTO [id number] 03:57:00 Test Item Value Reference Range Interpretation [...] (BEAKER) (test code = 413) BASIC METABOLIC [id number] 03:43:00 Test Item Value Reference Range Interpretation [...] S NOT APPLICABLE FOR DIALYSIS PATIEN TS. Used Car Manager ID - BEN [id number] 03:43:00 Test Item Value Reference Range Interpretation Comments MAGNESIUM (BEAKER) (test code = 2.3 mg/dL 1.6-2.6 627) Used Car Manager ID - BEN LOVBIVFPRQG9559-52-76 03:43:00 Test Item Value Reference Range Interpretation Comments PHOSPHORUS (BEAKER) (test code = 3.3 mg/dL 2.3-4.7 604) Used Car Manager ID - BEN DNjxdjilxmkyco1927-76-54 21:42:00 Test Item Value Reference Range Interpretation Comments Procalcitonin (test code = 0.32 ng/mL <0.05 H 32444-7) NETTIE (test code = NETTIE) SEPSIS RISK (ng/mL)Low: 0.05-0.50Intermedia te: 0.51-2.00High: >=2.01 Lab Interpretation (test Abnormal code = 59932-9) [facility] Center[id number] 21:42:00 Test Item Value Reference Range Interpretation Comments PROCALCITONIN (BEAKER) (test code 0.32 ng/mL <0.05 H = 3036) SEPSIS RISK (ng/mL)Low: 0.05-0.50Intermediate: 0.51-2.00High: >=2.01MAGNESIUM 2021-01-07 15:43:00 Test Item Value Reference Range Interpretation Comments MAGNESIUM (BEAKER) (test code = 2.1 mg/dL 1.6-2.6 627) Used Car Manager ID - [id number] 15:43:00 Test Item Value Reference Range Interpretation Comments PHOSPHORUS (BEAKER) (test code = 3.0 mg/dL 2.3-4.7 604) Used Car Manager ID - MAYComprehensive metabolic [id number] 14:31:00 Test Item Value Reference Range Interpretation Comments Protein, Total (test 6.3 See_Comment [Autom ated code = 2885-2) message] The system which generated this result transmit alexandre reference range : 6.0 - 8.3 gm/dL . The reference range was not u sed to interpret th is result as normal/abnormal . Albumin (test code = 3.5 g/dL 3.5-5 05008-4) Alkaline Phosphatase 292 U/L 40-150 H (test code = 6768-6) Total Bilirubin (test 0.4 mg/dL 0.2-1.2 code = 1975-2) Sodium (test code = 143 meq/L 518-435 2687-2) Potassium (test code 3.4 meq/L 3.5-5.1 L = 2823-3) Chloride (test code = 108 meq/L 98-107 H 2075-0) CO2 (test code = 24 meq/L 22-29 2028-9) BUN (test code = 24 mg/dL 7-21 H 3094-0) Creatinine (test code 0.62 mg/dL 0.57-1.25 = 2160-0) Glucose (test code = 131 mg/dL 70-105 H 2345-7) Calcium (test code = 8.0 mg/dL 8.4-10.2 L 84362-7) AST (test code = 71 U/L 5-34 H 1920-8) ALT (test code = 72 U/L 6-55 H 1742-6) EGFR (test code = 94 mL/min/1.73 [place] [address]-5) NOT ACCURATE CREATININE CLEARANCE IN PREDICTING GLOMERULAR FILTRATION RATE . ESTIMATED GFR I S NOT APPLICABLE FOR DIALYSIS PATIEN NETTIE (test code = NETTIE) Used Car Manager ID - CORA Lab Interpretation Abnormal (test code = 25121-1) [facility] CenterHepatic function [id number] 14:31:00 Test Item Value Reference Range Interpretation Comments Protein, Total (test 6.3 See_Comment [Autom ated code = 2885-2) message] The system which generated this result transmit alexandre reference range : 6.0 - 8.3 gm/dL . The reference range was not u sed to interpret th is result as normal/abnormal . Albumin (test code = 3.5 g/dL 3.5-5 69464-5) Total Bilirubin (test 0.4 mg/dL 0.2-1.2 code = 1974-2) Bilirubin, Direct 0.2 mg/dL 0.1-0.5 (test code = 1967-7) Alkaline Phosphatase 292 U/L 40-150 H (test code = 6768-6) AST (test code = 71 U/L 5-34 H 1920-8) ALT (test code = 72 U/L 6-55 H 1742-6) NETTIE (test code = NETTIE) Used Car Manager ID - CORA Lab Interpretation Abnormal (test code = 72678-7) [facility] CenterCOMPREHENSIVE METABOLIC [id number] 14:31:00 Test Item Value Reference Range Interpretation [...] S NOT APPLICABLE FOR DIALYSIS PATIEN TS. Used Car Manager ID - COARHEPATIC FUNCTION [id number] 14:31:00 Test Item Value Reference Range Interpretation [...] code = 72 U/L 6-55 H 347) Used Car Manager ID - CORABlood gas, dbwrtohq2841-48-84 13:59:00 Test Item Value Reference Range Interpretation Comments pH, Arterial (test code 7.46 7.35-7.45 H = 2744-1) pCO2, Arterial (test 37 See_Comment [Autom ated message] code = 2019-8) The system [employer] generated this result transmit alexandre reference range : 35 - 45 mm Hg. The reference range was not used to interpret this result as normal/abnormal . pO2, Arterial (test 91 See_Comment H [Automa alexandre message] code = 2703-7) The system [employer] generated this result transmit alexandre reference range [...] 21 Lab Interpretation Abnormal (test code = 99243-9) [facility] CenterBLOOD GAS, [id number] 13:59:00 Test Item Value Reference Range Interpretation [...] code = 1819) 21.0 CT, BRAIN, WITHOUT [id number] 13:54:00Unlisted Reason for Exam - Click Yes and Enter Reason Below->YesUnlisted Reason for Exam->SAH worsen exam [facility] : 1945 Sex: FFINAL[address]PORT CT, [...] and mild leftward midline shift. Signed: Opal Carrillohiwot Verified Date/Time: 113:54:14 CT brain without IV [...] and mild leftward midline shift. 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 Using coaxial technique, a 5F [employer] catheter was advanced through the right subclavian [...] basilar artery shows no significant abnormality. The posteriorcerebral arteries and their branches are normal in [...] - HEAD) Under fluoroscopic guidance, a catheter wasadvanced into the left common carotid artery. PA [...] AP x SI). 3. 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 OPERATIVE DIAGNOSIS: Right middle cerebral artery aneurysm status post clipping PROCEDURE: Diagnostic cerebral angiogram and intra-arterial infusion of verapamil ANESTHESIA: General endotracheal anesthesia ESTIMATED BLOOD LOSS: Minimal COMPLICATIONS: None Devices Employed: 5F slender ojfjvx0G Patel catheterTerumo Hatley WirePrelude Band INDICATIONS: The patient is a [...] MDReport Verified Date/Time: 01/07/2021 13:27:18 Reading Location: [facility] Y026 Neuro Angio Reading Room NV Embolization [id number] 13:27:00Interface, External Ris In - 01/07/2021 1:29 PM CDTFINAL REPORT DATE OF PROCEDURE: 01/03/2021 SURGEON: Ava Whitt MD SECURITY SYSTEM ANALYST: Miryam Gonzalez MD; Sancho Martinez MD PREOPERATIVE DIAGNOSIS: Right middle cerebral artery aneurysm status post clipping POST OPERATIVE DIAGNOSIS: Right middle cerebral artery aneurysm status post clipping PROCEDURE: Diagnostic cerebral angiogram and intra-arterial infusion of verapamil ANESTHESIA: General endotracheal anesthesia ESTIMATED BLOOD LOSS: Minimal COMPLICATIONS: None Devices Employed: 5F slender grvtvg6T Patel catheterTerumo Hatley WirePrelude Band INDICATIONS: The patient is a [...] technical or clinical complications. Signed: Ava Whitt [facility] Verified Date/Time: 01/07/2021 13:27:18 Reading Location: [facility] B1 Y026 NeuroAngio Reading Room [facility] CenterNV cerebral 4 vessel [id number] 13:27:00 Interface, External Ris In - 01/07/2021 1:29 PM CDTFINAL REPORT DATE OF PROCEDURE: 01/03/2021 SURGEON: Ava Whitt MD SECURITY SYSTEM ANALYST: Miryam Gonzalez MD; Sancho Martinez MD PREOPERATIVE DIAGNOSIS: Right middle cerebral artery aneurysm status post clipping POST OPERATIVE DIAGNOSIS: Right middle cerebral artery aneurysm status post clipping PROCEDURE: Diagnostic cerebral angiogram and intra-arterial infusion of verapamil ANESTHESIA: General endotracheal anesthesia ESTIMATED BLOOD LOSS: Minimal COMPLICATIONS: None Devices Employed: 5F slender zmoiul1T Patel catheterTerumo Hatley WirePrelude Band INDICATIONS: The patient is a [...] MDReport Verified Date/Time: 01/07/2021 13:27:18 Reading Location: [facility] Y026 NeuroAngio Reading Room [facility] CenterRAD, CHEST, 1 VIEW, NON [id number] 12:33:00Reason for exam:->leukocytosisShould this be performed at the bedside?->Yes [facility] : 1945 Sex: FFINALREPORT CLINICAL HISTORY: leukocytosis TECHNIQUE: 1 view of the chest. COMPARISON: 01/04/2021 IMPRESSION: The ETT has been removed. Feeding tube remains. There is patchy left lung base airspace opacity with a trace left effusion. The right lung remains well-aerated. The cardiomediastinal silhouette is magnified by technique. Signed: Griselda Mcconnell MDReport Verified Date/Time: 01/07/2021 12:33:30 Reading Location: [facility] Radiology Reading Room EEG AWAKE AND [id number] 12:32:00For STAT EEG- after 5 PM weekdays, weekends and holidays, page the on-call EEG TechReason for exam:->c/f subclinical sz [facility] : 1945 Sex: FAddendum BeginsDate of EEG and EEG report was 01/07/2021, no 12/24/2020. Addendum EndsVIDEO EEG report for [facility] NAME: Sonu Arellano DATE OF EE12/24/2020 DATE OF REPORT: 12/24/2020 ACC: [id number] EE5 Start time: 12/24/2020@08:33 Stop time: 12/24/2020@08:54 ICD-10: R41.82, R56.9 CPT Code: 84358 HISTORY: 75yo female with PMH of hypertension, presenting with ICH and SAH 2/2 R MCA aneurysm. now s/p R pteronial craniotomy for R MCA bifurcation aneurysm and hematoma evacuation on 12/28 MEDICATIONS THAT COULD AFFECT THE EEG: Keppra, acetaminophen, dextrose, lovenox, apresoline, insulin, labetalol, loperamide, provigil, micardipine, nimodipine TECHNICAL SUMMARY: This is a [employer] [facility] digital Video-EEG recorded with 32 input channels reviewed with bipolar and referential montages using the modified combinatorial system nomenclature. DESCRIPTION OF RECORD: Duringthe maximally alert state, no reactive posterior dominant [...] consider additional EEG recordings. Cirilo Mays M.D., FACSAAD, FAAN, LARRY Professor of Neurology [facility] [employer] Director, [facility] Head, Luis Sternhow[facility] Neurophysiology Lab EEG AWAKE AND [id number] 12:29:00Interface, External Ris In - 01/07/2021 12:32 PM CDTAddendum BeginsDate of EEG and EEG report was 01/07/2021, no 12/24/2020. Addendum EndsVIDEO EEG report for [facility] NAME: Sonu Sarabia DATE OF EE12/24/2020 DATE OF REPORT: 12/24/2020 ACC: [id number] EE-1225 Start time: 12/24/2020@08:33 Stop time: 12/24/2020@08:54 ICD-10: R41.82, R56.9 CPT Code: 61031 HISTORY: 75yo female with PMH of hypertension, presenting with ICH and SAH 2/2 R MCA aneurysm. now s/p R pte ronial craniotomy for R MCA bifurcation aneurysm and hematoma evacuation on 12/28 MEDICATIONS THAT COULD AFFECT THE EEG: Keppra, acetaminophen, dextrose, lovenox, apresoline, insulin, labetalol, loperamide, provigil, micardipine, nimodipine TECHNICAL SUMMARY: This is a [employer] digital Video-EEG recorded with 32 input channels [...] An EEG without epileptiform discharges does not excludethe possibility of epilepsy. If the clinical suspicion of epilepsy remains, consider additional EEG recordings. Cirilo Mays M.D., HARPREET, DEANA, LARRY Professor of Neurology [facility] Healthcare Director, [facility] Head, Luis Waters Neurophysiology Lab [facility] CenterPOCT-GLUCOSE [id number] 11:46:00 Test Item Value Reference Range Interpretation Comments POC-GLUCOSE METER 107 mg/dL 70-110 : TESTED A T [facility] 6720 (BEAKER) (test code = [facility] 3scale [facility], 1538) 96912: Used Car Manager/Techni marielos ID = [id number] for ANA SIMON POCT-GLUCOSE [id number] 05:41:00 Test Item Value Reference Range Interpretation Comments POC-GLUCOSE METER 131 mg/dL 70-110 H : TESTED A T [facility] 6720 (BEAKER) (test code = [facility], 1538) 94761: Used Car Manager/Techni marielos ID = [id number] for Deysi Thompson BASIC METABOLIC [id number] 03:52:00 Test Item Value Reference Range Interpretation [...] S NOT APPLICABLE FOR DIALYSIS PATIEN TS. Used Car Manager ID - CHRISTINA [id number] 03:52:00 Test Item Value Reference Range Interpretation Comments MAGNESIUM (BEAKER) (test code = 2.2 mg/dL 1.6-2.6 627) Used Car Manager ID - CHRISTINA [id number] 03:52:00 Test Item Value Reference Range Interpretation Comments PHOSPHORUS (BEAKER) (test code = 2.6 mg/dL 2.3-4.7 604) Used Car Manager ID - CHRISTINA WCBC W/PLT COUNT & AUTO [id number] 03:41:00 Test Item Value Reference Range Interpretation [...] PERCENT (BEAKER) (test code = 2801) POCT-GLUCOSE [id number] 23:31:00 Test Item Value Reference Range Interpretation Comments POC-GLUCOSE METER 132 mg/dL 70-110 H : TESTED A T [facility] 6720 (BEAKER) (test code = [facility], 1538) 11963: Used Car Manager/Techni marielos ID = [id number] for Deysi Thompson POCT-GLUCOSE [id number] 17:30:00 Test Item Value Reference Range Interpretation Comments POC-GLUCOSE METER 111 mg/dL 70-110 H : TESTED A T [facility] 6720 (BEAKER) (test code = [facility], 1538) 84059: Used Car Manager/Techni marielos ID = [id number] for Elver Hilariosa [id number] 16:48:00 Test Item Value Reference Range Interpretation Comments SODIUM (BEAKER) (test code = 381) 142 meq/L 136-145 Used Car Manager ID - DBPOCT-GLUCOSE [id number] 11:59:00 Test Item Value Reference Range Interpretation Comments POC-GLUCOSE METER 110 mg/dL 70-110 : TESTED A [facility] 6720 (BEAKER) (test code = [place] [place], 1538) 30[address]: Used Car Manager/Techni marielos ID = [id number] for Ar mstrong, [place] CT, BRAIN, WITHOUT [id number] 10:58:00Unlisted Reason for Exam - Click Yes and Enter Reason Below->YesUnlisted Reason for Exam->hydrocephal [facility] : 1945 Sex: FFINALREPORT CT, [...] MDReport Verified Date/Time: 01/06/2021 10:58:27 Reading Location: [address] Neuro Reading Room . [facility] 2021-01-06 10:58:00Unlisted Reason for Exam - Click Yes and Enter Reason Below- >YesUnlisted Reason for Exam->spasm [facility] : 1945 Sex: FFINALREPORT [...] posteriorly projecting right cavernous ICA aneurysm. Signed: Maxwell, Ana MDReport Verified Date/Time: 01/06/2021 10:58:27 Reading Location: [address] Neuro Reading Room POCT-GLUCOSE METER 2021-01-06 06:42:00 Test Item Value Reference Range Interpretation Comments POC-GLUCOSE METER 123 mg/dL 70-110 H : TESTED A T [facility] 6720 (BEAKER) (test code = [place], 1538) 518[address]: Used Car Manager/Techni marielos ID = [id number] for DERRICK GEORGE BASIC METABOLIC [id number] 02:52:00 Test Item Value Reference Range Interpretation [...] S NOT APPLICABLE FOR DIALYSIS PATIEN TS. Used Car Manager ID - BEN [id number] 02:38:00 Test Item Value Reference Range Interpretation Comments MAGNESIUM (BEAKER) (test code = 2.0 mg/dL 1.6-2.6 627) Used Car Manager ID - BEN [id number] 02:38:00 Test Item Value Reference Range Interpretation Comments PHOSPHORUS (BEAKER) (test code = 3.0 mg/dL 2.3-4.7 604) Used Car Manager ID - BEN MBLOOD GAS, [id number] 02:21:00 Test Item Value Reference Range Interpretation [...] 1819) 36.0 CBC W/PLT COUNT & AUTO [id number] 02:19:00 Test Item Value Reference Range Interpretation [...] PERCENT (BEAKER) (test code = 2801) POCT-GLUCOSE [id number] 01:29:00 Test Item Value Reference Range Interpretation Comments POC-GLUCOSE METER 120 mg/dL 70-110 H : TESTED A T [facility] 6720 (BEAKER) (test code = [facility], 153) 50090: Used Car Manager/Techni marielos ID = [id number] for DERRICK ELIAS [id number] 21:28:00 Test Item Value Reference Range Interpretation Comments SODIUM (BEAKER) (test code = 381) 139 meq/L 136-145 Used Car Manager ID - DBPOCT-GLUCOSE [id number] 18:06:00 Test Item Value Reference Range Interpretation Comments POC-GLUCOSE METER 106 mg/dL 70-110 : TESTED A T [facility] 6720 (BEAKER) (test code = [facility], 153) 84271: Used Car Manager/Techni marielos ID = [id number] for Yesi nova (pca2) Margarita POCT-GLUCOSE [id number] 12:14:00 Test Item Value Reference Range Interpretation Comments POC-GLUCOSE METER 109 mg/dL 70-110 : TESTED A T [facility] 6720 (BEAKER) (test code = [facility], 153) 65172: Used Car Manager/Techni marielos ID = [id number] for Yesi nova (pca2)Margarita [id number] 09:02:00 Test Item Value Reference Range Interpretation Comments PROCALCITONIN (BEAKER) (test code = < ng/mL <0.05 3036) SEPSIS RISK (ng/mL)Low: 0.05-0.50Intermediate: 0.51-2.00High: >=2.01BASIC METABOLIC [id number] 06:15:00 Test Item Value Reference Range Interpretation [...] S NOT APPLICABLE FOR DIALYSIS PATIEN TS. Used Car Manager ID - BEN MPOCT-GLUCOSE [id number] 05:53:00 Test Item Value Reference Range Interpretation Comments POC-GLUCOSE METER 122 mg/dL 70-110 H : TESTED A T [facility] 6720 (BEAKER) (test code = [place], 1538) 09[address]: Used Car Manager/Techni marielos ID = [id number] for BEN FALL [id number] 05:53:00 Test Item Value Reference Range Interpretation Comments MAGNESIUM (BEAKER) (test code = 2.0 mg/dL 1.6-2.6 627) Used Car Manager ID - BEN [id number] 05:53:00 Test Item Value Reference Range Interpretation Comments PHOSPHORUS (BEAKER) (test code = 3.5 mg/dL 2.3-4.7 604) Used Car Manager ID - BEN MCBC W/PLT COUNT & AUTO [id number] 05:51:00 Test Item Value Reference Range Interpretation [...] (BEAKER) (test code = 2801) BLOOD GAS, [id number] 05:17:00 Test Item Value Reference Range Interpretation [...] (BEAKER) (test code = 1819) 40.0 POCT-GLUCOSE [id number] 00:24:00 Test Item Value Reference Range Interpretation Comments POC-GLUCOSE METER 117 mg/dL 70-110 H : TESTED A T [facility] 6720 (BEAKER) (test code = [facility], 1538) 27182: Used Car Manager/Techni marielos ID = [id number] for GONZALO REYES BEN POCT-GLUCOSE [id number] 18:15:00 Test Item Value Reference Range Interpretation Comments POC-GLUCOSE METER 115 mg/dL 70-110 H : TESTED A T [facility] 6720 (BEAKER) (test code = [facility], 1538) 94292: Used Car Manager/Techni marielos ID = [id number] for Yesi nova (pca2)Margarita [id number] 18:10:00 Test Item Value Reference Range Interpretation Comments Potassium (test code = 3.2 meq/L 3.5-5.1 L 2823-3) NETTIE (test code = NETTIE) Used Car Manager ID - BS Lab Interpretation (test Abnormal code = 75662-0) [facility] CenterPOTASSIUM2021-08-13 18:10:00 Test Item Value Reference Range Interpretation Comments POTASSIUM (BEAKER) (test code = 3.2 meq/L 3.5-5.1 L 379) Used Car Manager ID - [id number] 14:49:00 Test Item Value Reference Range Interpretation Comments SODIUM (BEAKER) (test code = 381) 141 meq/L 136-145 Used Car Manager ID - ADMINHemoglobin and [id number] 14:40:00 Test Item Value Reference Range Interpretation [...] = 4544-3) NETTIE (test code = NETTIE) Used Car Manager ID - [id number] Lab Interpretation Abnormal (test code = 96533-7) [facility] CenterHEMOGLOBIN AND [id number] 14:40:00 Test Item Value Reference Range Interpretation Comments HEMOGLOBIN (BEAKER) (test code = 7.6 GM/DL 11.2-15.7 L 410) HEMATOCRIT (BEAKER) (test code = 22.8 % 34.1-44.9 L 411) Used Car Manager ID - [id number]-GLUCOSE [id number] 11:57:00 Test Item Value Reference Range Interpretation Comments POC-GLUCOSE METER 90 mg/dL 70-110 : TESTED A T [facility] 6720 (BEAKER) (test code = [place], 1538) 85288: Used Car Manager/Techni marielos ID = [id number] for Moises terrazas (pca2)Margarita BLOOD [id number] 09:01:00 Test Item Value Reference Range Interpretation Comments CULTURE (BEAKER) (test No growth in 5 days code = 1095) BLOOD [id number] 09:01:00 Test Item Value Reference Range Interpretation [...] for exam:->IntubatedShould this be performed at the bedside?->Yes[facility] : 1945 Sex: FFINAL REPORT RAD, CHEST, 1 VIEW, NON DEPT INDICATION: Intubated COMPARISON: January 03, 2021 FINDINGS: Portable frontal view of the chest. IMPRESSION: Support Lines: Stable. Lungs and pleura: No new consolidation. Left basilar subsegmental atelectasis. No pneumothorax.Heart and mediastinum: Stable contours. Additional findings: None. Signed: JR Mcmanus Robert MDReport Verified Date/Time: 01/04/2021 08:04:17 Reading Location: [facility] Radiology Reading Room CBC W/PLT COUNT & AUTO [id number] 05:10:00 Test Item Value Reference Range Interpretation [...] (BEAKER) (test code = 2801) BASIC METABOLIC [id number] 05:01:00 Test Item Value Reference Range Interpretation [...] S NOT APPLICABLE FOR DIALYSIS PATIEN TS. Used Car Manager ID - [id number] 04:58:00 Test Item Value Reference Range Interpretation Comments MAGNESIUM (BEAKER) (test code = 2.2 mg/dL 1.6-2.6 627) Used Car Manager ID - [id number] 04:58:00 Test Item Value Reference Range Interpretation Comments PHOSPHORUS (BEAKER) (test code = 3.8 mg/dL 2.3-4.7 604) Used Car Manager ID - ADMINBLOOD GAS, [id number] 04:27:00 Test Item Value Reference Range Interpretation [...] (BEAKER) (test code = 1819) 35.0 POCT-GLUCOSE [id number] 01:17:00 Test Item Value Reference Range Interpretation Comments POC-GLUCOSE METER 115 mg/dL 70-110 H : TESTED A T [facility] 6720 (BEAKER) (test code = [place], 1538) 54124: Used Car Manager/Techni marielos ID = [id number] for IH DERRICK GEORGE POCT-GLUCOSE [id number] 17:51:00 Test Item Value Reference Range Interpretation Comments POC-GLUCOSE METER 126 mg/dL 70-110 H : TESTED A [facility] 6720 (NAZARIO) (test code = [facility], 1538) 64059: Used Car Manager/Techni marielos ID = [id number] for LE IJA, AURA [id number] 16:39:00 Test Item Value Reference Range Interpretation Comments SODIUM (NAZARIO) (test code = 381) 139 meq/L 136-145 Used Car Manager ID - ADMINPOCT-GLUCOSE [id number] 11:41:00 Test Item Value Reference Range Interpretation Comments POC-GLUCOSE METER 133 mg/dL 70-110 H : TESTED A [facility] 6720 (NAZARIO) (test code = [facility], 1538) 20495: Used Car Manager/Techni marielos ID = [id number] for LE IJA, AURA RAD, CHEST, 1 VIEW, NON [id number] 09:34:00Reason for exam:- >intubatedShould this be performed at the bedside?->Yes [facility] : 1945 Sex: FFINALREPORT RAD, CHEST, 1 VIEW, NON DEPT INDICATION: intubated COMPARISON: Prior day's exam FINDINGS: Portable frontal view of the chest. IMPRESSION: Support Lines: Stable. Lungs and pleura: Clear lungs. No consolidation. No pneumothorax.Heart and mediastinum: Stable contours. Additional findings: None. Signed: JR Mcmanus Robert [facility] Medical Centerhiwot Verified Date/Time: 01/03/2021 09:34:12 Reading Location: [facility] Radiology Reading Room BASIC METABOLIC PANEL 2021-01-03 [...] S NOT APPLICABLE FOR DIALYSIS PATIEN TS. Used Car Manager ID - [id number] 05:47:00 Test Item Value Reference Range Interpretation Comments MAGNESIUM (BEAKER) (test code = 2.2 mg/dL 1.6-2.6 627) Used Car Manager ID - [id number] 05:47:00 Test Item Value Reference Range Interpretation Comments PHOSPHORUS (BEAKER) (test code = 3.2 mg/dL 2.3-4.7 604) Used Car Manager ID - ADMINPOCT-GLUCOSE [id number] 05:34:00 Test Item Value Reference Range Interpretation Comments POC-GLUCOSE METER 130 mg/dL 70-110 H : [facility] (test code = [place], 1538) 00516: Used Car Manager/Techni marielos ID = [id number] for Deysi Thompson CBC W/PLT COUNT & AUTO [id number] 05:02:00 Test Item Value Reference Range Interpretation [...] (BEAKER) (test code = 2801) BLOOD GAS, [id number] 04:53:00 Test Item Value Reference Range Interpretation [...] (BEAKER) (test code = 1819) 35.0 POCT-GLUCOSE [id number] 23:24:00 Test Item Value Reference Range Interpretation Comments POC-GLUCOSE METER 130 mg/dL 70-110 H : TESTED A T [facility] 6720 (BEAKER) (test code = [facility], 1538) 58335: Used Car Manager/Techni marielos ID = [id number] for Deysi Thompson [id number] 18:30:00 Test Item Value Reference Range Interpretation Comments POTASSIUM (BEAKER) 4.2 meq/L 3.5-5.1 Specimen slightly (test code = 379) hemolyzed Used Car Manager ID - ADMINVenous doppler legs [id number] 18:05:34Ejection FractionSLEH ECHO HEARTLAB MKCKESSON CPACSRight Impression1. [...] Study 01/02/2021 Age 75 Visit N manny [id number] Gender Female Date of 1945 Number [facility] Room Number 7409 Physician Andre Family Service Assistant Bartolo Clark RVS Interpreting MD Rebekah Ennis, RVT Physician ProcedureType of Study: Veins: Lower Extremities DVTStudy, VENOUS DOPPLER LEG, BILATERAL. Indications for Study:ICU surveillance.Patient Status:Routine.Study Location:Portable.Technical Quality:Adequate visualization.Risk FactorsHistory of Disease+------ +----+--------+!Diagnosis !Date!Comments!+----- +----+--------+!History/R isk Factors: ! !HTN, SAH!+ +----+--------+ ImpressionsRight Impression1. [...] The veins were adequately visualized. The bilateral venoussystems were patent and compressible with no evidence of thrombus. The venous Doppler waveforms werepulsatile indicating possible elevated right heart filling pressure. Signature Velocities are measured in cm/s ; Diameters are measured in [facility] HospitalVenous doppler arms [id number] 18:05:01Ejection FractionSLEH ECHO HEARTLAB MKCKESSON CPACSRight Impression1. [...] of Study 01/02/2021 Age 75 Visit Number [id number] Gender Female Date of 1945 Number Referring [facility]ly [facility] Room Number 7409 Physician Andre Family Service Assistant Bartolo Clark RVS Interpreting MD Rebekah EnnisRVT Physician ProcedureType of Study: Veins: Upper Extremities Veins, VENOUS DOPPLER ARMS, BILATERAL. Indications for Study:ICU surveillance.Patient Status:Routine.Study Location:Portable.Technical Quality:Adequate visualization. - Results were reported to:Sanjana SCHULER @ 8941.Risk FactorsHistory of Diseas e+ +----+--------+!Di agnosis !Date!Comment s!+ +----+--------+!H istory/Risk Factors:! !HTN, SAH!+ +----+--------+ ImpressionsRight Impression1. There is total echolucent superficial venous obstruction in the cephalicvein.2. There is no deep venous obstruction in the jugular, subclavian, axillary,brachial, radial or ulnar veins.3. There is no superficial venous obstruction in the basilic vein.Left Impression1. There is partialecholucent superficial venous obstruction in thecephalic vein.2. There is no deep venous obstructionin the jugular, subclavian, axillary,brachial, radial or ulnar [...] in cm/s ; Diameters are measured in [facility] HospitalPOCT- GLUCOSE [id number] 17:46:00 Test Item Value Reference Range Interpretation Comments POC-GLUCOSE METER 134 mg/dL 70-110 H : TESTED A T [facility] 6720 (BEAKER) (test code = [facility], 1538) 14055: Used Car Manager/Techni marielos ID = [id number] for LE IJA, AURA [id number] 17:40:00 Test Item Value Reference Range Interpretation Comments SODIUM (BEAKER) (test code = 381) 139 meq/L 136-145 Used Car Manager ID - [id number] 15:00:00 Test Item Value Reference Range Interpretation Comments POTASSIUM (BEAKER) 3.8 meq/L 3.5-5.1 Specimen slightly (test code = 379) hemolyzed [id number] 13:34:00 Test Item Value Reference Range Interpretation Comments MAGNESIUM (BEAKER) (test code = 2.4 mg/dL 1.6-2.6 627) Transcranial Doppler Complete (TCD)2021-01-02 13:04:27Chloé Gold 01/02/2021 1:04 PMTCD complete, [facility] in [facility] CenterPOAL- GLUCOSE [id number] 11:49:00 Test Item Value Reference Range Interpretation Comments POC-GLUCOSE METER 116 mg/dL 70-110 H : TESTED A T [facility] 6720 (BEAKER) (test code = [facility], 1538) 07112: Used Car Manager/Techni marielos ID = [id number] for LE IJA, AURA [id number] 07:20:00 Test Item Value Reference Range Interpretation Comments MAGNESIUM (BEAKER) 2.1 mg/dL 1.6-2.6 Specimen slightly (test code = 627) hemolyzed BASIC METABOLIC [id number] 07:20:00 Test Item Value Reference Range Interpretation [...] 1092) DATA TO CALCULA TE ESTIMATED GFR. [id number] 07:11:00 Test Item Value Reference Range Interpretation Comments PHOSPHORUS (BEAKER) 2.9 mg/dL 2.3-4.7 Specimen slightly (test code = 604) hemolyzed POCT-GLUCOSE [id number] 06:10:00 Test Item Value Reference Range Interpretation Comments POC-GLUCOSE METER 122 mg/dL 70-110 H : TESTED A T [facility] 6720 (BEAKER) (test code = [place]AN [place], 1538) [address]: Used Car Manager/Techni marielos ID = [id number] for Deysi Thompson CBC W/PLT COUNT & AUTO [id number] 04:22:00 Test Item Value Reference Range Interpretation [...] (BEAKER) (test code = 2801) BLOOD GAS, [id number] 04:16:00 Test Item Value Reference Range Interpretation [...] 1819) 35.0 RAD, CHEST, 1 VIEW, NON [id number] 04:05:00Reason for exam:- >intubatedShould this be performed at the bedside?->Yes [facility]OSLYNAlannaSONU : 1945 Sex: FFINAL REPORT RAD, CHEST, 1 VIEW, NON DEPT INDICATION: intubated COMPARISON: Prior day's exam FINDINGS: Portable frontal view of the chest. IMPRESSION: Support Lines: Stable. Lungs and pleura: No consolidation or sizable effusion. Unchanged bibasilar atelectasis. No pneumothorax.Heart and mediastinum: Stable contours.Additional findings: None. Signed: Danielle Espinal Verified Date/Time: 01/02/2021 04:05:39 MR, BRAIN, WITHOUT [id number] 02:18:00 Unlisted Reason for Exam - Click Yes and Enter Reason Below->No [facility]OS[facility]NAl[facility]SONU : 1945 Sex: FFINALREPORT EXAM: MR, BRAIN, [...] Date/Time: 01/02/2021 02:18:34 MR brain without IV [id number] 02:18:00Interface, External Ris In - 01/02/2021 2:20 [...] Danielle Espinal MDReport Verified Date/Time: 01/02/2021 02:18:34 [facility] POCT-GLUCOSE [id number] 23:48:00 Test Item Value Reference Range Interpretation Comments POC-GLUCOSE METER 127 mg/dL 70-110 H : [facility] (BE[facility]ER[facility] (test code = JOAN Haddad [facility], 1538) [address]: Used Car Manager/Techni marielos ID = [id number] for Deysi Thompson VANCOMYCIN LEVEL, [id number] 20:05:00 Test Item Value Reference Range Interpretation Comments VANCOMYCIN TROUGH (BEAKER) (test 5.0 ug/mL 10.0-20.0 L code = 522) Used Car Manager ID - [id number] 18:24:00 Test Item Value Reference Range Interpretation Comments SODIUM (BEAKER) (test code = 381) 139 meq/L 136-145 [id number] 18:24:00 Test Item Value Reference Range Interpretation Comments MAGNESIUM (BEAKER) (test code = 2.3 mg/dL 1.6-2.6 627) [id number] 18:22:00 Test Item Value Reference Range Interpretation Comments POTASSIUM (BEAKER) (test code = 3.1 meq/L 3.5-5.1 L 379) POCT-GLUCOSE [id number] 18:02:00 Test Item Value Reference Range Interpretation Comments POC-GLUCOSE METER 140 mg/dL 70-110 H : TESTED A T [facility] 6720 (BEAKER) (test code = JOAN Haddad [facility], 1538) [address]78: Used Car Manager/Techni marielos ID = [id number] for LE IJA, AURA Transcranial Doppler Complete (TCD)2021-01-01 17:05:10Chloé Gold 01/01/2021 5:05 PMTCD complete, [facility] [id number] 12:19:00 Test Item Value Reference Range Interpretation Comments POC-GLUCOSE METER 143 mg/dL 70-110 H : TESTED A T [facility] 6720 (BEAKER) (test code = JOAN Haddad [facility], 1538) 67284: Used Car Manager/Techni marielos ID = [id number] for LE IJA, AURA SPUTUM CULTURE + GRAM [id number] 10:58:00 Test Item Value Reference Range Interpretation Comments CULTURE (BEAKER) (test No growth code = 1095) GRAM STAIN RESULT 1+ WBCs (BEAKER) (test code = 1123) GRAM STAIN RESULT 0-5 epithelial cells (BEAKER) (test code = 22218) GRAM STAIN RESULT No organisms seen (BEAKER) (test code = 66975) SPUTUM CULTURE + GRAM [id number] 10:46:00 Test Item Value Reference Range Interpretation Comments CULTURE (BEAKER) (test code No growth = 1095) GRAM STAIN RESULT (BEAKER) 2+ WBCs (test code = 1123) GRAM STAIN RESULT (BEAKER) No organisms seen (test code = 91628) RAD, CHEST, 1 VIEW, NON [id number] 10:03:00Reason for exam:- >intubatedShould this be performed at the bedside?->Yes [facility] 1945 Sex: FFINALREPORT [...] Verified Edwin e/Time: 01/01/2021 10:03:00 Reading Location: [facility] Diagnostic Imaging Reading Room - [place] [address] [id number] 09:01:00 Test Item Value Reference Range Interpretation Comments PHOSPHORUS (BEAKER) 2.4 mg/dL 2.3-4.7 Specimen slightly (test code = 604) hemolyzed [id number] 08:54:00 Test Item Value Reference Range Interpretation Comments MAGNESIUM (BEAKER) 2.1 mg/dL 1.6-2.6 Specimen slightly (test code = 627) hemolyzed BASIC METABOLIC [id number] 08:54:00 Test Item Value Reference Range Interpretation [...] TO CALCULA TE ESTIMATED GFR. BLOOD GAS, [id number] 07:40:00 Test Item Value Reference Range Interpretation [...] (BEAKER) (test code = 1819) 35.0 POCT-GLUCOSE [id number] 05:24:00 Test Item Value Reference Range Interpretation Comments POC-GLUCOSE METER 155 mg/dL 70-110 H : TESTED A T [facility] 6720 (BEAKER) (test code = JOAN Haddad [facility], 1538) 39[address]: Used Car Manager/Techni marielos ID = [id number] for Deysi Thompson CBC W/PLT COUNT & AUTO [id number] 04:51:00 Test Item Value Reference Range Interpretation [...] PERCENT (BEAKER) (test code = 2801) POCT-GLUCOSE [id number] 23:38:00 Test Item Value Reference Range Interpretation Comments POC-GLUCOSE METER 112 mg/dL 70-110 H : TESTED Alanna T [facility] 6720 (BEAKER) (test code = BERT[place] R [place], 1538) [address]: Used Car Manager/Techni marielos ID = [id number] for Deysi Thompson POCT-GLUCOSE [id number] 19:23:00 Test Item Value Reference Range Interpretation Comments POC-GLUCOSE METER 109 mg/dL 70-110 : TESTED A T [facility] 6720 (BEAKER) (test code = JOAN Haddad [place], 1538) [address]: Used Car Manager/Techni marielos ID = [id number] for EVANS ERAZO [id number] 16:35:00 Test Item Value Reference Range Interpretation Comments MAGNESIUM (BEAKER) 2.3 mg/dL 1.6-2.6 Specimen slightly (test code = 627) hemolyzed Used Car Manager ID - [id number] 16:35:00 Test Item Value Reference Range Interpretation Comments POTASSIUM (BEAKER) 3.7 meq/L 3.5-5.1 Specimen slightly (test code = 379) hemolyzed Used Car Manager ID - [id number] 16:35:00 Test Item Value Reference Range Interpretation Comments SODIUM (BEAKER) (test code = 381) 138 meq/L 136-145 Used Car Manager ID - DBTranscranial Doppler Complete (TCD)2020-12-31 16:25:13 Heraclio Davila MD 01/04/2021 11:00 [facility]- Transcranial Doppler Report Referring physician: Dr. Martinez Indication: aSAH Maximal estimated mean bloodflow velocities (cm / sec): R EC ICA 38 L EC ICA 36 R Ophthalmic - L Ophthalmic - R MCA 80 R PABLO 53 R ICA R LAW TUTOR 64 L MCA 67 L PABLO 74 L ICA L LAW TUTOR 48 R vertebral 25 L vertebral 27 [...] reviewed records, and agree with documentation above. .[facility] 1 VIEW AP 2020-12-31 13:56:00Reason for exam:->check placement of feeding tubeShould this be performed at the bedside?->Yes [facility] : 1945 Sex: FFINAL REPORT RAD, ABDOMEN/KUB, 1 VIEW AP COMPARISON: December 28, 2020 INDICATION: check placement of feeding tube IMPRESSION:A feeding tube has been placed. The distal tip projects over the antrum. The visible bowel gas pattern is unremarkable. Signed: JR Mcmanus Robert MDReport Verified Date/Time: 12/31/2020 13:56:31 Reading Location: [facility] Radiology Reading Room XR abdomen / KUB 1 [id number] 13:56:00Interface, External Ris In - 12/31/2020 1:58 PM CDTFINAL REPORT RAD, ABDOMEN/KUB, 1 VIEW AP COMPARISON: December 28, 2020 INDICATION: check placement of feeding tube IMPRESSION:A feeding tube has been placed. The distal tip projects over the antrum. The visible bowel gas pattern is unremarkable. Signed: JR Mcmanus Robert MDReport Verified Date/Time: 12/31/2020 13:56:31 Reading Location: [facility] Radiology [facility] 2020-12-31 12:58:00 Test Item Value Reference Range Interpretation Comments POC-GLUCOSE METER 127 mg/dL 70-110 H : TESTED A T [facility] 6720 (BEAKER) (test code = JOAN Haddad [place], 1538) [address]: Used Car Manager/Techni marielos ID = [id number] for An roni (pca2)Jaye [id number] 06:49:00 Test Item Value Reference Range Interpretation Comments MAGNESIUM (BEAKER) 2.0 mg/dL 1.6-2.6 Specimen slightly (test code = 627) hemolyzed Used Car Manager ID - ADMINBASIC METABOLIC [id number] 04:34:00 Test Item Value Reference Range Interpretation [...] 1092) DATA TO CALCULA TE ESTIMATED GFR. Used Car Manager ID - ADMINCBC W/PLT COUNT & AUTO [id number] 04:06:00 Test Item Value Reference Range Interpretation [...] PERCENT (BEAKER) (test code = 2801) POCT-GLUCOSE [id number] 00:19:00 Test Item Value Reference Range Interpretation Comments POC-GLUCOSE METER 112 mg/dL 70-110 H : TESTED Alanna T [facility] 6720 (BEAKER) (test code = [place], 1538) [address]: Used Car Manager/Techni marielos ID = [id number] for Deysi Thompson Prepare Leuko-Red [id number] 23:54:00 Test Item Value Reference Range Interpretation Comments CROSSMATCH (test code = 2264) COMPATIBLE Unit ABO (test code = B Pos [id number]) UNIT NUMBER (test code = [id number] 934-0) Status (test code = 3663992) TX_TIMEINCHART Blood Bank Product (test code RED BLOOD CELLS = 2263) PRODUCT CODE (test code = V5072I47 933-2) [facility] CenterHEMOGLOBIN AND [id number] 21:07:00 Test Item Value Reference Range Interpretation Comments HEMOGLOBIN (BEAKER) (test code = 8.3 GM/DL 11.2-15.7 L 410) HEMATOCRIT (BEAKER) (test code = 24.7 % 34.1-44.9 L 411) Used Car Manager ID - [id number] W VID 2-12 HR CONTINUOUS MONITORING (VEEG)2020-12-30 18:16:00BillingTUSTIN HOSPITAL MEDICAL CENTERName: S[facility]O : 1945 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 MEDICATIONS THAT COULD AFFECT EEG: Yoseph TECHNICAL SUMMARY: [facility] with 32 [...] External Ris In - 12/30/2020 6:16 PM [facility] Video EEG REPORT NAME: Sonu Arellano DATE(s) OF TEST: 12/30/2020 DATE OF REPORT: 12/30/2020 ACC: [id number] EE-1178 Start time/date: 12/30/20, 8:12 am Stop time/date: 12/30/20, 4:28 pm ICD-10: R56.9 CPT Code: 36429 HISTORY: 75 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 MEDICATIONS THAT COULD AFFECT EEG: Yoseph TECHNICAL SUMMARY: This is a [facility] digital video EEG recorded with 32 input [...] Frankie Kitchen MD, MS Clinical Neurophysiology/Epilepsy [facility]ending [facility] 17:35:00 Test Item Value Reference Range Interpretation Comments SODIUM (BEAKER) (test code = 381) 139 meq/L 136-145 Used Car Manager ID - CHRISTINA WPOCT-GLUCOSE [id number] 17:22:00 Test Item Value Reference Range Interpretation Comments POC-GLUCOSE METER 116 mg/dL 70-110 H : TESTED A Simona [facility] 6720 (NAZARIO) (test code = JOAN [place], 1538) 113[address]: Used Car Manager/Techni marielos ID = [id number] for SEBASTIÁN STARKS Transcranial Doppler Complete (TCD)2020-12-30 16:35:00Julian Epstein MD 01/03/2021 4:38 [facility] Transc[facility] Report Indica tion: aSAH Maximal estimated mean blood flow velocities (cm / sec): R EC ICA 39 L EC ICA 31 R Ophthalmic L Ophthalmic R MCA 80 R PABLO 49 R ICA R LAW TUTOR 58 L MCA 58 L PABLO L ICA L LAW TUTOR R vertebral L [id number] Basilar 34 [place] (R MCA:R ECICA) 2.05 [place] (L MCA:L ECICA) 1.87 Post bleed day #: 2 Velocity Range Thompson Elevated velocity = 90 - 119 cm/sec Mild vasospasm = 120 - 159 cm/sec Moderate vasospasm = 160 - 199 cm/sec Severe vasospasm = ? 200 cm/sec Interpretation:Velocities within acceptable ranges.Clinical Correlation is recommended.[facility] CenterCT, BRAIN, WITHOUT [id number] 12:31:00Unlisted Reason for Exam - Click Yes and Enter Reason Below- >YesUnlisted Reason for Exam->Leftpupil large [facility] : 1945 Sex: FFINALREPORT CT, [...] MDReport Verified Date/Time: 12/30/2020 12:31:25 Reading Location: [address] Neuro Reading Room POCT- GLUCOSE [id number] 12:13:00 Test Item Value Reference Range Interpretation Comments POC-GLUCOSE METER 122 mg/dL 70-110 H : TESTED A T [facility] 6720 ([facility]) (test code = [place]AN [place], 1538) [address]15[address]: Used Car Manager/Techni marielos ID = [id number] for SEBASTIÁN STARKS EEG W VID 12-26 HR CONTINUOUS MONITORING (VEEG)2020-12-30 11:38:00Billing 12/29/2020[facility] : 1945 [facility] REPORT NAME: Sonu Arellano DATE(s) OF TEST: 12/28/2020 - 12/30/2020 DATE OF REPORT: 12/30/2020 ACC: [id number] EE-1178 Start time/date: 12/29/20, 1:34 pm Stop time/date: 12/30/20, 8:12 am ICD-10: R56.9 CPT Code: 42711 HISTORY: 75 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 MEDICATIONS THAT COULD AFFECT EEG: Kearistidesra TECHNICAL SUMMARY: This is a [facility] digital video EEG recorded with 32 input [...] External Ris In - 12/30/2020 11:39 AM [facility] Video EEG REPORT NAME: Sonu Arellano DATE(s) OF TEST: 12/28/2020 - 12/30/2020 DATE OF REPORT: 12/30/2020 ACC: [id number] EE8 Start time/date: 12/29/20, 1:34 pm Stop time/date: 12/30/20, 8:12 am ICD-10: R56.9 CPT Code: 92993 HISTORY: 75 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 MEDICATIONS THAT COULD AFFECT EEG: Yoseph TECHNICAL SUMMARY: This is a [facility] [place] digital video EEG recorded with32 input channels [...] Kitchen MD, MS Clinical Neurophysiology/Epi lepsy Attending [facility]2D Echo W/Doppler(CW/PW/Color)2020-12-30 11:19:34Ejection FractionSLEH ECHO HEARTLAB MKCKESSON CPACSInterface, External Ris In - 12/30/2020 11:19 AM CDTTransthoracic Echocardiography Report (TTE) Demographics Patient Name DELINEA, Date of Study 12/29/2020 SONU Gender Female Visit Number [id number] Race Unknown Room Number 7409 Number Date of 1945 Referring Sal Lozada [facility] Physician Andre Age 75 year(s) Family Service Assistant Nica Summers, [facility] Cashier Or Checker Stock Clerk Sancho Felipe Interpreting Chepe Monet MD Physician [...] function by limited views and Doppler. Aorta Aorticroot size (SInus of Valsalva diameter) is normal . Pericardium No evidence of pericardial effusion. IVC/SVC/PA/PV/Pleural The estimated RA pressure by IVC dynamics 5-10mmHg . Chambers/Structures Left Atrium LA Volume: 34.74 ml LA Area: 14.42 cm^2 LA Vol. Index: 20 ml/m^2 Left Ventricle LVIDd: 4.06 cmLVEDV:72.34 ml LV Septum Diastolic: 0.83 cm LV [...] Tricuspid Valve TR Velocity: 2.64 m/s TR Gradient: 27.88 mmHgKaiser Richmond Medical [id number] 11:08:00 Test Item Value Reference Range Interpretation Comments PROCALCITONIN (BEAKER) (test code 0.72 ng/mL <0.05 H = 3036) SEPSIS RISK (ng/mL)Low: 0.05-0.50Intermediate: 0.51-2.00High: >=2.01 Urinalysis Microscopic [id number] 10:55:00 Test Item Value Reference Range Interpretation Comments RBC, UA (test 12 See_Comment [Automated me ssage] code = 31148-3) The system [facility] generated this result transmitted ref erence range: /HPF. Th e reference range was not used to int erpret this result as normal/abnormal . WBC, UA (test 1 See_Comment [Automated me ssage] code = 5821-4) The system [facility] generated this result transmitted ref erence range: /HPF. Th e reference range was not used to int erpret this result as normal/abnormal . Bacteria, UA None Seen (test code = 44393-4) Mucus (test Rare code = 8247-9) Squam Epithel, <1 See_Comment [Automated m essage] UA (test code = The system [facility] 80382-6) generated this result transmitted ref erence range: /HPF. Th e reference range was not used to int erpret this result as normal/abnormal . Crystals, Urine None Seen (test code = 60045-8) NETTIE (test code Used Car Manager ID - tech = NETTIE) [facility] CenterURINALYSIS [id number] 10:55:00 Test Item Value Reference Range Interpretation Comments RBC UA (BEAKER) (test code = 519) 12 /HPF WBC UA (BEAKER) (test code = 520) 1 /HPF BACTERIA (BEAKER) (test code = 517) None Seen MUCUS (BEAKER) (test code = 1574) Rare SQUAMOUS EPITHELIAL (BEAKER) (test < /HPF code = 516) CRYSTALS, URINE (BEAKER) (test code None Seen = 1521) Used Car Manager ID - techUrinalysis with Microscopic If [id number] 10:20:00 Test Item Value Reference Range Interpretation Comments Color, UA (test code = Light Yellow 5778-6) Clarity, UA (test code = Clear 5767-9) Specific Admire, UA (test 1.020 1.001-1.035 code = 5811-5) pH, UA (test code = 6.0 5.0-8.0 5803-2) Protein, UA (test code = 30 mg/dL Negative A 59726-4) Glucose, UA (test code = Negative Negative 365) Ketones, UA (test code = Negative Negative 2514-8) Bilirubin, UA (test code = Negative Negative 22042-8) Blood, UA (test code = Small Negative A 98527-9) Nitrite, UA (test code = Negative Negative 5802-4) Leukocytes, UA (test code Negative Negative = 5799-2) Urobilinogen, UA (test 0.2 mg/dL 0.2-1 code = 36057-7) Specimen Source (test code = 2795) NETTIE (test code = NETTIE) Used Car Manager ID - [auto] Lab Interpretation (test Abnormal code = 48981-4) [facility] CenterURINALYSIS WITH MICROSCOPIC IF [id number] 10:20:00 Test Item Value Reference Range Interpretation [...] = 463) SOURCE(BEAKER) (test code = 2795) Used Car Manager ID - [auto][id number] 09:53:00 Test Item Value Reference Range Interpretation Comments MAGNESIUM (BEAKER) 2.2 mg/dL 1.6-2.6 Specimen slightly (test code = 627) hemolyzed Used Car Manager ID - CHRISTINA WCBC W/PLT COUNT & AUTO [id number] 09:48:00 Test Item Value Reference Range Interpretation [...] CONCENTRATION Adequate (CELLAVISION)(BEAKER) (test code = 3438) Used Car Manager ID - Margarita OverholtUser comments: Slide comments:POCT-GLUCOSE METER 2020-12-30 07:07:00 Test Item Value Reference Range Interpretation Comments POC-GLUCOSE METER 152 mg/dL 70-110 H : TESTED A T [facility] 6720 (BEAKER) (test code = [place]AN [place], 1538) 120[address]: Used Car Manager/Techni marielos ID = [id number] for NE RELA, CARSON BASIC METABOLIC [id number] 06:30:00 Test Item Value Reference Range Interpretation [...] 1092) DATA TO CALCULA TE ESTIMATED GFR. Used Car Manager ID - CHRISTINA SANDERSON, CHEST, 1 VIEW, NON [id number] 04:02:00Reason for exam:->IntubatedShould this be performed at the bedside?->Yes [facility] : 1945 Sex: FFINALREPORT CLINICAL INDICATION: Support lines. Comparison: 12/29/2020 The cardiomediastinal contours are stable. The upper lungs are clear. Central pulmonary vascular prominence and bilateral parenchymal and pleural opacities are otherwise similar to previous. There is no pneumothorax. Support lines are stable. Signed: Gissell Moore Verified Date/Time: 12/30/2020 04:02:02 SODIUM 2020-12-30 01:05:00 Test Item Value Reference Range Interpretation Comments SODIUM (BEAKER) (test code = 381) 142 meq/L 136-145 Used Car Manager ID - DBPOCT-GLUCOSE [id number] 00:20:00 Test Item Value Reference Range Interpretation Comments POC-GLUCOSE METER 144 mg/dL 70-110 H : TESTED A T [facility] 67 (NAZARIO) (test code = JOAN Haddad [facility], 1538) [address]: Used Car Manager/Techni marielos ID = [id number] for [place] RELA, [place]SON HEMOGLOBIN AND [id number] 17:28:00 Test Item Value Reference Range Interpretation Comments HEMOGLOBIN (NAZARIO) (test code = 8.0 GM/DL 11.2-15.7 L 410) HEMATOCRIT (NAZARIO) (test code = 23.5 % 34.1-44.9 L 411) Used Car Manager ID - 6000POCT-GLUCOSE [id number] 17:27:00 Test Item Value Reference Range Interpretation Comments POC-GLUCOSE METER 148 mg/dL 70-110 H : Notified RN/MD: (NAZARIO) (test code = TESTED AT [facility] 6720 1538) [facility], [address]: Used Car Manager/Techni marielos ID = [id number] for LL HinaTIFFANY RADHASHUKRI EEG W VID 12-26 HR CONTINUOUS MONITORING (VEEG)2020-12-29 17:12:00Reason for exam:->ICH concern for seizure [facility] : 1945 [facility] EEG REPORT NAME: Sonu ArellanoMRN: [id number](s) OF TEST: 12/28/2020 - 12/29/2020ATE OF REPORT: 12/29/2020 ACC: [id number]: 21- 1178 Start time/date: 12/28/20, 1111pStop time/date: 12/29/20, 134pICD-10: R56.9CPT Code: 49752 HISTORY: 75 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 MEDICATIONS THAT COULD AFFECT EEG: Fosphenytoin, Keppra TECHNICAL SUMMARY:This is [facility] digital video EEG recorded with 32 input channels reviewed with bipolar and referentialmontages using the modified combinatorial system nomenclature. DESCRIPTION OF RECORD:During this study, patient is poorly responsive, intubated but not on sedation. No posterior dominant rhythm was seen . The background is asymmetric with admixed theta [...] from 1-33 Hz; no photic driving was seen;photoparoxysmal responses were absent. ELECTROCARDIOGRAM EVENTS: Normal Sinus Rhythm IMPRESSION: This is an abnormal video-EEG study due to the presence ofLateralized rhythmic delta activity, regional right fronto- central (LRDA)Continuous slow, generalized and attenuated right hemisphereAsymmetry [...] seizures. No electrographic seizures have been captured. Ne urophysiology/Epilepsy FellowEcho Castrejon MD I have reviewed this electroencephalogram, discussed the findings with the fellow, addended the fellow's report and agree with the overall assessment. Frankie Kitchen MD, MSClinical Neurophysiology/Epilepsy Attending EEG 12-26 HR Continuous Monitoring with [id number] 17:12:00Interface, External Ris In - 12/29/2020 5:12 PM [facility] Video EEG REPORT NAME: Sonu ArellanoMRN: [id number](s) OF TEST: 12/28/2020 - 12/29/2020ATE OF REPORT: 12/29/2020 ACC: [id number]: 21- 1178 Start time/date: 12/28/20, 1111pStop time/date: 12/29/20, 134pICD-10: R56.9CPT Code: 46327 HISTORY: 75 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 MEDICATIONS THAT COULD AFFECT EEG: Fosphenytoin, Keppra TECHNICAL SUMMARY:This is a [place] digital video EEG recorded with 32 input [...] assessment. Frankie Kitchen MD, MSClinical Neurophysiology/Epilepsy Attending [facility]OD[facility] 2020-12-29 16:46:00 Test Item Value Reference Range Interpretation Comments SODIUM (BEAKER) (test code = 381) 144 meq/L 136-145 Used Car Manager ID - BEN MPOCT-GLUCOSE [id number] 12:31:00 Test Item Value Reference Range Interpretation Comments POC-GLUCOSE METER 185 mg/dL 70-110 H : Notified RN/MD: (NAZARIO) (test code = TESTED AT [facility] 6720 1538) [facility], [address]: Used Car Manager/Techni marielos ID = [id number] for EVANS ERAZO CT, CTANGIO [id number] 10:52:00Include non-contrast CTHUnlisted Reason for Exam - Click Yes and Enter Reason Below->YesUnlisted Reason for Exam->aSAH s/p clipTUSTIN HOSPITAL MEDICAL CENTERName: SONU ARELLANO : 1945 Sex: FFINALREPORT CT, [...] MDReport Verified Date/Time: 12/29/2020 10:52:22 Reading Location: [address] Neuro Reading Room CBC W/PLT COUNT & AUTO [id number] 09:24:00 Test Item Value Reference Range Interpretation [...] CONCENTRATION Decreased (CELLAVISION)(BEAKER) (test code = 3438) Used Car Manager ID - Margarita OverholtUser comments: Slide comments:Hemoglobin A1c 2020-12-29 07:57:00 Test Item Value Reference Range Interpretation Comments Hemoglobin A1C (test code = 4548-4) 5.3 % 4.3-6.1 Lab Interpretation (test code = Normal 05496-5) [facility] [id number] 07:57:00 Test Item Value Reference Range Interpretation Comments HEMOGLOBIN A1C (BEAKER) (test code = 5.3 % 4.3-6.1 368) BLOOD GAS, [id number] 07:52:00 Test Item Value Reference Range Interpretation [...] (test code = 1819) 100.0 BASIC METABOLIC [id number] 07:06:00 Test Item Value Reference Range Interpretation [...] 1092) DATA TO CALCULA TE ESTIMATED GFR. Used Car Manager ID - BEN [id number] 07:03:00 Test Item Value Reference Range Interpretation Comments MAGNESIUM (BEAKER) (test code = 2.5 mg/dL 1.6-2.6 627) Used Car Manager ID - BEN [id number] 07:03:00 Test Item Value Reference Range Interpretation Comments PHOSPHORUS (BEAKER) (test code = 2.1 mg/dL 2.3-4.7 L 604) Used Car Manager ID - BEN MPOCT-GLUCOSE [id number] 06:18:00 Test Item Value Reference Range Interpretation Comments POC-GLUCOSE METER 147 mg/dL 70-110 H : [facility] ([facility]ER) (test code = JOAN LONG DE, 1538) [address]: Used Car Manager/Techni marielos ID = [id number] [facility] BLOOD GAS, [id number] 06:11:00 Test Item Value Reference Range Interpretation [...] 1819) 30.0 RAD, CHEST, 1 VIEW, NON [id number] 05:27:00Reason for exam:- >IntubatedShould this be performed at the bedside?->Yes [facility] : 1945 Sex: FFINALREPORT RAD, [...] Stable contours.Additional findings: None. Signed: Ana Arreola [facility] Verified Date/Time: 12/29/2020 05:27:13 CT BRAIN WITHOUT IV CONTRAST - [id number] 03:09:00Unlisted Reason for Exam - Click Yes and Enter Reason Below->No[facility] : 1945 Sex: FFINALREPORT [...] hemorrhage and ventricle size. Signed: Danielle Espinal MDRepbart[facility] Verified Date/Time: 12/29/2020 03:09:55 CT brain without [...] Danielle Espinal MDReport Verified Date/Time: 12/29/2020 03:09:55 [id number] 02:04:00 Test Item Value Reference Range Interpretation Comments MAGNESIUM (BEAKER) (test code = 1.7 mg/dL 1.6-2.6 627) Used Car Manager ID - BEN [id number] 02:04:00 Test Item Value Reference Range Interpretation Comments PHOSPHORUS (BEAKER) (test code = 1.7 mg/dL 2.3-4.7 L 604) Used Car Manager ID - BEN MRAD, ABDOMEN/KUB, 1 VIEW [id number] 00:20:00Reason for exam:->ngt placement [facility] : 1945 Sex: FFINALREPORT [...] CONCENTRATION Adequate (CELLAVISION)(BEAKER) (test code = 3438) Used Car Manager ID - Elizabeth Murray comments: Slide comments:COMPREHENSIVE METABOLIC [id number] 22:40:00 Test Item Value Reference Range Interpretation [...] 1092) DATA TO CALCULA TE ESTIMATED GFR. Used Car Manager ID - DBPT/[id number] 22:40:00 Test Item Value Reference Range Interpretation [...] mechanical heart valves.CBC W/PLT COUNT & AUTO [id number] 22:35:00 Test Item Value Reference Range Interpretation [...] 0-0 (BEAKER) (test code = 413) Prepare [id number] 20:43:00 Test Item Value Reference Range Interpretation Comments CROSSMATCH (test code = COMPATIBLE 2313) Unit ABO (test code = B Pos 1340355) UNIT NUMBER (test code = [id number] 934-0) Status (test code = RETURNED FROM ISSUE 1416515) Blood Bank Product (test RED BLOOD CELLS code = 2263) PRODUCT CODE (test code = Q6273C12 933-2) [facility] [id number] 16:10:00 Test Item Value Reference Range Interpretation Comments HEMOGLOBIN A1C (BEAKER) (test code = 5.6 % 4.3-6.1 368) CBC W/PLT COUNT & AUTO [id number] 14:45:00 Test Item Value Reference Range Interpretation [...] CONCENTRATION Adequate (CELLAVISION)(BEAKER) (test code = 3438) Used Car Manager ID - Nola Diaz comments: Slide comments:SARS-COV2/RT-PCR ([facility])2020-12-28 14:15:00 Test Item Value Reference Range Interpretation Comments SARS-COV2/RT-PCR Negative Negative The SARS-Co V-2 target (test code = nucleic acids a re not 3588575) detected in thi s specimen. Negative result [...] revoked sooner. Fact Sheet for Healthcare Providers: https://www.cepheid.c om/Documents/Xpert%20Xpress%20SARS%20CoV-2/Fact%20Sheets/229-5476%24SXDQ-ANU-3%2 0HEALTHCARE%20PROVIDERS%20FACT%20SHEET.pdf Fact Sheet for Healthcare Patients: https://www.[employer].Auth0/Documents/Xpert%20X press%20SARS%20CoV-2/Fact%20Sheets/3023801%17AOKM-THC-5%20PATIENT%20FACT%20SHEMagan PeckpdfInsert Arterial [id number] 13:56:27PaNoah lopez 12/28/2020 2:01 PMInsert Arterial Line [...] to verify the correct patient, procedure, equipment, marketing support assistant and site/side marked as required.Preparation: Patient was prepped and draped in the usual sterile fashion.Indications: multiple ABGs and hemodynamic monitoringLocation: left radial Sedation:Patient sedated: no Needle gauge: 20Number of attempts: 2 [facility] CenterPhenytoin level, [id number] 13:37:00 Test Item Value Reference Range Interpretation Comments Phenytoin (test code = <0.5 10-20 L 3968-5) NETTIE (test code = NETTIE) Used Car Manager ID - DERRICK M Lab Interpretation (test Abnormal code = 91475-8) [facility] CenterPHENYTOIN LEVEL, [id number] 13:37:00 Test Item Value Reference Range Interpretation Comments PHENYTOIN (DILANTIN) (BEAKER) (test < ug/mL 10.0-20.0 L code = 605) Used Car Manager ID - DERRICK MABORH, [id number] 13:27:00 Test Item Value Reference Range Interpretation Comments ABO Grouping (test code = 2588) B Rh Factor (test code = 2589) POS [facility] CenterBLOOD GAS, [id number] 12:49:00 Test Item Value Reference Range Interpretation [...] (test code = 1819) 30.0 CT, CTANGIO [id number] 11:32:00Ok to give contrast without Cr level.Unlisted Reason for Exam - Click Yes and Enter Reason Below->No [facility] : 1945 Sex: FFINALREPORT CT, [...] arteries: Normal contrast opacification of the bilateral LAW TUTOR P1-P2 branches.Venous opacification: Major dural sinuses unremarkable [...] MDReport Verified Date/Time: 12/28/2020 11:32:07 Reading Location: [address] Neuro Reading Room POCT-GLUCOSE [id number] 11:29:00 Test Item Value Reference Range Interpretation Comments POC-GLUCOSE METER 163 mg/dL 70-110 H : Notified RN/MD: (NAZARIO) (test code = TESTED AT [facility] 6720 1538) [facility], [address]: Used Car Manager/Techni marielos ID = [id number] for [address] CT, BRAIN, WITHOUT [id number] 11:16:00Unlisted Reason for Exam - Click Yes and Enter Reason Below->No [facility] : 1945 Sex: FFINALREPORT CT, BRAIN, WITHOUT CONTRAST CLINICAL INDICATION: Cerebral hemorrhage suspected COMPARISON: None TECHNIQUE: Noncontrast axial CT imaging of the brain and skull. DOSE REDUCTION: Dose modulation, iterative reconstruction, and/or weight-based adjustment of the mA/kV was utilized to reduce the radiation dose to as low as reasonably achievable. FINDINGS:4.6 x 3.7 x 4.5 cm intrap arenchymal hematoma within the right temporal lobe with adjacent subarachnoid hemorrhage. Layering subdural hemorrhage along the right posterior frontal, temporal and occipital convexity measures up to8 mm. There is associated mass effect with 9 mm leftward midline shift, leftward subfalcine and early uncal herniation. No hydrocephalus. Effacement of the right lateral ventricle. Trace blood productswithin the occipital horn of the left lateral ventricle. Orbits are within normal limits. No obstructive paranasal sinus disease. IMPRESSION: 4.6 x 3.7 x 4.5 cm intraparenchymal hematoma within the right temporal lobe with adjacent subarachnoid hemorrhage. Layering subdural hemorrhage along the right c erebral convexity measures up to 8 mm. There is associated mass effect with 9 mm leftward midline shift, leftward subfalcine and early uncal herniation. Trace intraventricular blood products within theoccipital horn of the left lateral ventricle. No hydrocephalus. If there is persistent clinical concern for intracranial pathology, MR examination is recommended for further characterization. Signed: Ana Arreola MDReport Verified Date/Time: 12/28/2020 11:16:20 Reading Location: [facility] C013V Neuro Reading Room C METABOLIC [id number] 10:41:00 Test Item Value Reference Range Interpretation [...] 1092) DATA TO CALCULA TE ESTIMATED GFR. Used Car Manager ID - BSHEPATIC FUNCTION [id number] 10:37:00 Test Item Value Reference Range Interpretation [...] (test code = 29 U/L 6-55 347) Used Car Manager ID - BSProthrombin time/[id number] 10:25:00 Test Item Value Reference Interpretation Comments Range Protime (test code = 13.0 See_Comment [Autom ated 8462-2) message] The system which generated this result transmitted reference range : 11.9 - 14.2 seconds. The reference range was not used to interpret this result as normal/abnormal . INR (test code = 1.00 See_Comment [Automated 0531-6) message] The system which generated this result [...] valves. Lab Interpretation Normal (test code = 07479-0) [facility] CenteraPTT2021-08-06 10:25:00 Test Item Value Reference Range Interpretation Comments PTT (test code = 66839-7) 22.9 See_Comment [ Automated message] The system [employer] generated this result transmitted ref erence range: 22.5 - 3 6.0 seconds. The re ference range was not u sed to interpret this result as normal/abnor mal. Lab Interpretation (test Normal code = 19138-0) [facility] CenterPROTHROMBIN TIME/[id number] 10:25:00 Test Item Value Reference Range Interpretation Comments PROTIME (BEAKER) 13.0 seconds 11.9-14.2 (test code = 759) INR (BEAKER) (test 1.00 See_Comment [Automat ed message] code = 370) The system [employer] generated this result transmitted ref erence range: <=5.90. The reference range was not used to int erpret this result as normal/abnormal . RECOMMENDED COUMADIN/WARFARIN INR THERAPY RANGESSTANDARD DOSE: 2.0 - 3.0 Includes: PROPHYLAXIS for venous thrombosis, systemic embolization; TREATMENT for venous thrombosis and/or pulmonary embolus.HIGH RISK: Target INR is 2.5-3.5 for patients with mechanical heart valves.[id number] 10:25:00 Test Item Value Reference Range Interpretation Comments PARTIAL THROMBOPLASTIN TIME 22.9 seconds 22.5-36.0 (BEAKER) (test code = 760) RAD, CHEST, 1 VIEW, NON [id number] 09:47:00Reason for exam:- >IntubatedShould this be performed at the bedside?->Yes [facility] : 1945 Sex: FFINALREPORT RAD, [...] MDReport Verified Date/Time: 12/28/2020 09:47:24 Reading Location: [facility] Radiology Reading Room OPHYSIOLOGY REPORT - [id number] 00:00:00Ordered by an unspecified provider.[facility]OLOG[facility] REPORT - [id number] 00:00:00Ordered by an unspecified provider.[facility] NEUROPHYSIOLOGY REPORT - [id number] 00:00:00Ordered by an unspecified provider.[facility]OLOG[facility] REPORT - [id number] 00:00:00Ordered by an unspecified provider.[facility] NEUROPHYSIOLOGY REPORT - [id number] 00:00:00Ordered by an unspecified provider.[facility]NE[facility]OLOG[facility] REPORT - [id number] 00:00:00Ordered by an unspecified provider.[facility] NEUROPHYSIOLOGY REPORT - [id number] 00:00:00[facility] by an unspecified provider.[facility] - [id number] 00:00:00Ordered by an unspecified provider.[facility] NEUROPHYSIOLOGY REPORT - [id number] 00:00:00Ordered by an unspecified provider.[facility]NE[facility]OPHY[facility]OLOG[facility] REPORT - [id number] 00:00:00Ordered by an unspecified provider.[facility] [id number] 00:00:00Ordered by an unspecified provider.[facility]
[2022-02-06 21:12] LABS: Absolute Lymphocytes (CBC) 2.9 K/uL (0.7-4.9); Hematocrit 46.6 % (36.0-45.0); MCV 92.3 fL (80-100); RBC Red Blood Cell Count 5.04 M/uL (3.86-4.86)
[2022-02-06 21:39] LABS: Albumin 3.4 g/dL (3.4-5.0); Bilirubin Total 0.7 mg/dL (0.2-1.0); Protein, Total 7.8 g/dL (6.4-8.2)
[2022-02-06 21:41] LABS: Potassium 2.7 mmol/L (3.5-5.1)
--- NOTE | 2022-02-06 22:04 | RAD REPORT ---
EXAM DESCRIPTION: CTAbdomen Pelvis W Contrast - 02/06/2022 9:49 pm CLINICAL HISTORY: Abdominal pain. abd pain COMPARISON: Abdomen Pelvis W Contrast dated 12/31/2021 TECHNIQUE: Biphasic CT imaging of the abdomen and pelvis was performed with 100 ml non-ionic IV cont rast. All CT scans are performed using dose optimization technique as appropriate and may include automated exposure control or mA/KV adjustment according to patient size. FINDINGS: The lung bases are clear. The liver, spleen, pancreas, adrenal glands and kidneys are within normal limits. Benign left renal c yst. Gastrostomy tube is in place. No bowel obstruction, free air, free fluid or abscess. The appendix is normal. No evidence of signi ficant lymphadenopathy. Moderate lumbar degenerative changes. Diffuse osteopenia. IMPRESSION: No acute intra-abdominal or pelvic finding.
--- NOTE | 2022-02-06 22:41 | EDPHYS ---
Physician Documentation [facility] Name: Georgina Chacko Age: 76 yrs Sex: Female : 1945 Arrival Date: 02/06/2022 Time: 20:16 Bed 6 Private MD: ED Physician Jim Zamorano HPI: 02/06 20:25 This 76 yrs old Female presents to ER via EMS with complaints of abd pain. rn 20:25 The patient presents with abdominal pain. Onset: The symptoms/episode began/occurred rn today. The symptoms do not radiate. Associated signs and symptoms: Pertinent negatives: nausea and vomiting, blood in stools, fever, shortness of breath, vomiting, vomiting blood. The symptoms are described as unable to describe. Modifying factors: The symptoms are alleviated by nothing, the symptoms are aggravated by nothing. Severity of pain: At its worst the pain was unable to describe. The patient has experienced similar episodes in the past. The patient has been recently seen by a physician:. Daughter reports patient having "abdominal spasms" and points to abdomen as if it hurts. Noticed it today. No fall or trauma. No vomiting. No fever. No diarrhea or blood in stool. Daughter states that seems like got entire tube feed last feed without difficulty. Pt with previous stroke and unable to describe symptoms. Admitted at [facility] recently for intractable vomiting and dehdyration. Seen here recently as well for constipation and feeding tube problem. Daughter states looks much better today than those other visits but concerned about spasms. . Historical: - Allergies: 20:26 No Known Allergies; jb4 - Home Meds: 20:26 amlodipine oral twice a day [Active]; Keppra 100 mg/mL Oral soln 5 mL 2 times per day jb4 [Active]; Metoprolol Tartrate Oral 2 times per day [Active]; Tylenol Oral as needed [Active]; Vitamin B-12 Oral daily [Active]; Cipro Oral [Active]; - PMHx: 20:26 CVA; HTN; jb4 - PSHx: 20:26 Peg tube; jb4 - Immunization history:: Adult Immunizations up to date. - Social history:: Smoking status: unknown. - Family history:: not pertinent. - Hospitalizations: : No recent hospitalization is reported. ROS: 20:25 Unable to obtain ROS due to baseline stroke. rn Exam: 20:25 Constitutional: This is a well developed, well nourished patient who is awake, alert, rn and in no acute distress. Head/Face: Normocephalic, atraumatic. Cardiovascular: Regular rate and rhythm. No pulse deficits. Respiratory: No increased work of breathing, no retractions or nasal flaring. Abdomen/GI: Soft, non-distended, + left sided PEG tube, no drainage or sign of infection. Skin: Warm, dry MS/ Extremity: Pulses equal, no cyanosis. Neuro: Awake, alert, contractures from previous stroke, points to abdomen when asked if she hurts using right arm. Speaks some words but difficult to understand, daughter helps translate. Vital Signs: 20:11 BP 123 / 107; Pulse 90; Resp 18; Pulse Ox 99% ; vc1 20:16 BP 166 / 108; Pulse 87; Resp 18; Temp 98.2; Pulse Ox 97% on R/A; Weight 70.31 kg (R); jb4 Height 5 ft. 2 in. (157.48 cm); 22:44 BP 113 / 88; Pulse 86; Resp 17; Pulse Ox 97% on R/A; vc1 20:16 Body Mass Index 28.35 (70.31 kg, 157.48 cm) jb4 MDM: 20:19 Patient medically screened. rn 22:39 Differential diagnosis: bowel obstruction, diverticulitis, non-specific abd pain, rn constipation, PEG tube problem. Data reviewed: vital signs, nurses notes, lab test result(s), radiologic studies, CT scan, and as a result, I will discharge patient. Counseling: I had a detailed discussion with the patient and/or guardian regarding: the historical points, exam findings, and any diagnostic results supporting the discharge/admit diagnosis, lab results, radiology results, the need for outpatient follow up, to return to the emergency department if symptoms worsen or persist or if there are any questions or concerns that arise at home. Response to treatment: the patient's symptoms have mildly improved after treatment, and as a result, I will discharge patient. Special discussion: Based on the patient's Hx, exam, and Dx evaluation, there is no indication for emergent surgery or inpatient Tx. It is understood by the patient/guardian that if the Sx's persist or worsen they need to return immediately for re-evaluation. I discussed with the patient/guardian in detail that at this point there is no indication for admission to the hospital. It is understood, however, that if the symptoms persist or worsen the patient needs to return immediately for re-evaluation. 02/06 20:20 Order name: CBC with Diff; Complete Time: 21:59 rn 02/06 20:20 Order name: CMP; Complete Time: 21:59 rn 02/06 20:20 Order name: Lipase; Complete Time: 21:59 rn 02/06 20:21 Order name: Magnesium; Complete Time: 21:59 rn 02/06 23:24 Order name: CREATININE WHOLE BLOOD EDOK 02/06 20:20 Order name: CT Abd/Pelvis - IV Contrast Only; Complete Time: 22:06 rn 02/06 20:20 Order name: IV Saline Lock; Complete Time: 21:34 rn 02/06 20:20 Order name: Labs collected and sent; Complete Time: 21:34 rn Administered Medications: 22:59 Drug: NS 0.9% 500 ml Route: IV; Rate: bolus; Site: right wrist; vc1 23:00 Drug: Potassium Chloride 20 mEq Route: IV; Rate: calculated rate; Site: right wrist; vc1 Disposition Summary: 02/06/22 22:40 Discharge Ordered Location: Home rn Problem: new rn Symptoms: have improved rn Condition: Stable rn Diagnosis - Dehydration rn - Hypokalemia rn - Abdominal pain, unspecified rn Followup: rn - With: Private Physician - When: As needed - Reason: Recheck today's complaints, Re-evaluation by your physician Discharge Instructions: - Discharge Summary Sheet rn - Abdominal Pain, Adult rn - Dehydration, Adult rn - Hypokalemia rn Forms: - Medication Reconciliation Form rn - Thank You Letter rn - Antibiotic internal controls consultant - Prescription Opioid Use rn Signatures: Dispatcher [employer] Jim Guzman MD MD rn Bryson, James RN RN jb4 Nina Lance RN RN vc1
--- NOTE | 2022-02-06 22:41 | ER ---
Nurse's Notes [facility] Name: Georgina Chacko Age: 76 yrs Sex: Female : 1945 Arrival Date: 02/06/2022 Time: 20:16 Bed 6 Private MD: Diagnosis: Dehydration;Hypokalemia;Abdominal pain, unspecified Presentation: 02/06 20:16 Chief complaint: EMS states: Pt family called reporting pt had been reporting abdominal jb4 pain, N/V/D. When asking the pt what hurts she points to her RUQ. Coronavirus screen: At this time, the client does not indicate any symptoms associated with coronavirus-19. Ebola Screen: No symptoms or risks identified at this time. Initial Sepsis Screen: Does the patient meet any 2 criteria? No. Patient's initial sepsis screen is negative. Does the patient have a suspected source of infection? Yes: Dysuria/Frequency/Urgency/UTI. Risk Assessment: Do you want to hurt yourself or someone else? Patient reports no desire to harm self or others. Onset of symptoms was February 06, 2022. Transition of care: patient was not received from another setting of care. 20:16 Method Of Arrival: EMS: [facility] jb4 20:16 Acuity: INESSA 3 jb4 Historical: - Allergies: 20:26 No Known Allergies; jb4 - Home Meds: 20:26 amlodipine oral twice a day [Active]; Keppra 100 mg/mL Oral soln 5 mL 2 times per day jb4 [Active]; Metoprolol Tartrate Oral 2 times per day [Active]; Tylenol Oral as needed [Active]; Vitamin B-12 Oral daily [Active]; Cipro Oral [Active]; - PMHx: 20:26 CVA; HTN; jb4 - PSHx: 20:26 Peg tube; jb4 - Immunization history:: Adult Immunizations up to date. - Social history:: Smoking status: unknown. - Family history:: not pertinent. - Hospitalizations: : No recent hospitalization is reported. Screenin:28 Abuse screen: Denies threats or abuse. Nutritional screening: No deficits noted. jb4 Tuberculosis screening: No symptoms or risk factors identified. Fall Risk Secondary diagnosis (15 points) dementia, CVA, IV access (20 points). Total Ken Fall Scale indicates Low Risk Score (25-44 pts). Fall prevention measures have been instituted. Side Rails Up X 2 Placed close to Nursing Station Frequent Obs/Assesments occuring Family Present and informed to notify staff if they need to leave bedside As available Patient and Family Educated on Fall Prevention Program and strategies. Assessment: 20:28 General: Appears in no apparent distress. comfortable, Behavior is calm. Pain: jb4 Complains of pain in right upper quadrant Pain does not radiate. Unable to use pain scale. FLACC scale score is 5 out of 10. Neuro: Level of Consciousness is awake, alert, Oriented to unable to assess due to pmh. Cardiovascular: Patient's skin is warm and dry. Respiratory: Airway is patent Respiratory effort is even, unlabored, Respiratory pattern is regular, symmetrical. GI: Abdomen is flat, spasms noted to left abdomen. PEG tube in place, Site clean. : Parent/caregiver report the patient having UTI. EENT: No signs and/or symptoms were reported regarding the EENT system. Derm: Skin is intact, Skin is pink, warm \T\ dry. Musculoskeletal: Circulation, motion, and sensation intact. 21:35 Reassessment: Pt to CT. jb4 22:00 Reassessment: No changes from previously documented assessment. Patient and/or family vc1 updated on plan of care and expected duration. Pain level reassessed. Patient is alert, oriented x 3, equal unlabored respirations, skin warm/dry/pink. 22:44 Reassessment: No changes from previously documented assessment. Patient and/or family vc1 updated on plan of care and expected duration. Pain level reassessed. Patient is alert, oriented x 3, equal unlabored respirations, skin warm/dry/pink. 23:30 Reassessment: No changes from previously documented assessment. Patient and/or family vc1 updated on plan of care and expected duration. Pain level reassessed. 02/07 00:30 Reassessment: Patient and/or family updated on plan of care and expected duration. Pain vc1 level reassessed. Patient is alert, oriented x 3, equal unlabored respirations, skin warm/dry/pink. Patient states feeling better. Patient states symptoms have improved. Vital Signs: 02/06 20:11 BP 123 / 107; Pulse 90; Resp 18; Pulse Ox 99% ; vc1 20:16 BP 166 / 108; Pulse 87; Resp 18; Temp 98.2; Pulse Ox 97% on R/A; Weight 70.31 kg (R); jb4 Height 5 ft. 2 in. (157.48 cm); 22:44 BP 113 / 88; Pulse 86; Resp 17; Pulse Ox 97% on R/A; vc1 20:16 Body Mass Index 28.35 (70.31 kg, 157.48 cm) jb4 ED Course: 20:16 Patient arrived in ED. jb4 20:19 Jim Zamorano MD is Attending Physician. rn 20:21 Triage completed. jb4 20:23 Arm band placed on right wrist. jb4 20:28 Patient has correct armband on for positive identification. Bed in low position. Call jb4 light in reach. Side rails up X 1. 21:33 Inserted saline lock: 22 gauge in right wrist, using aseptic technique. Blood collected.vc1 21:34 Nina Lance, RN is Primary Nurse. vc1 21:51 CT Abd/Pelvis - IV Contrast Only In Process Unspecified. EDMS 22:44 No provider procedures requiring assistance completed. vc1 02/07 01:05 IV discontinued, intact, bleeding controlled, No redness/swelling at site. Pressure vc1 dressing applied. Administered Medications: 02/06 22:59 Drug: NS 0.9% 500 ml Route: IV; Rate: bolus; Site: right wrist; vc1 23:00 Drug: Potassium Chloride 20 mEq Route: IV; Rate: calculated rate; Site: right wrist; vc1 Medication: 20:28 VIS not applicable for this client. jb4 Outcome: 22:40 Discharge ordered by . rn 02/07 01:05 Discharged to home via ambulance. vc1 Condition: good Discharge instructions given to patient, Instructed on discharge instructions, follow up and referral plans. Demonstrated understanding of instructions, follow-up care. 01:06 Patient left the ED. vc1 Signatures: Dispatcher [employer] EDMS Jim Zamorano MD MD rn Bryson, James, RN RN jb4 Nina Lance RN RN vc1
[2022-02-06] MEDS ORDERED: NA CHLORIDE 0.9% 500 ML ONE ×2 (23:00→23:48)
[2022-02-06] MEDS ORDERED: KCL 20 MEQ/100 mL IVPB 100 ML IV ONE (23:01)
[2022-02-08 10:09] VITALS: TEMP 98.2
[2022-02-08 10:20] VITALS: BP 123/107; O2SAT 99
== END 2022-02-07 01:06 | disposition home or self-care (01) ==
LOC: ER 20:08
DX: E86.0 Dehydration (principal); E87.6 Hypokalemia; R10.9 Unspecified abdominal pain; I10 Essential (primary) hypertension
CPT/HCPCS: 85025; 36415; 83735; 82565; 83690; 80053; 74177; 96374; 99284; Q9967; J3480; J7040 ×2

== ENCOUNTER 2022-10-23 10:16 | Emergency (ER) | payer OTHER ==
--- OUTSIDE RECORDS SUMMARY | 2022-10-23 10:28 | XMS REPORT | Continuity of Care Document ---
:1945 Author Organization [facility] t Address [address] [facility] [address] [place] [address] Care Team Providers Name Role Phone Nevaeh Hawkins Primary Care Physician HERACLIO DAVILA Attending Clinician Unavailable Doctor Unassigned, [place] Attending Clinician Unavailable ADAM RODAS Attending Clinician Unavailable Adam Early Attending Clinician Servando SCHULER, Mariah Wade Attending Clinician NOVA DAMON Attending Clinician Unavailable Marcelino Heredia MD Attending Clinician Nova Damon DO Attending Clinician Perry RODRIGUEZ, Maury Kamara Attending Clinician Lidia RODRIGUEZ, Miri Cardenas Attending Clinician Araceli RODRIGUEZ, Fei Serna Attending Clinician Henny García CRNA Attending Clinician [phone] Staci RODRIGUEZ, Nathan Jarvis Attending Clinician Virtual, Surgeon Attending Clinician Unavailable Pcp , No Attending Clinician Unavailable Stefan Jose MD Attending Clinician Ava Whitt MD Attending Clinician HERACLIO DAVILA Admitting Clinician Unavailable NOVA DAMON Admitting Clinician Unavailable Nova Damon DO Admitting Clinician Payers Payer Name Policy Type Policy Number Effective Date Expiration Date S sherita [facility] HMO OS [id number] 2020 00:00:00 Notice Kiosk [id number] 2021 (MEDICARE 00:00:00 REPLACEMENT HMO) Problems Condition Condition Condition Status Onset Resolution Last Treating Co mments Source Name Details Category Date Date Treatment Clinician Date Vomiting, Vomiting, Disease Active Uni vers intractabi intractabi 01-21 it y of lity of lity of 00:00: [place] vomiting vomiting 00 Medica l not not Branch specified, specified, presence presence of nausea of nausea not not specified, specified, unspecifie unspecifie d vomiting d vomiting type type SAH SAH Disease Recurre [facility] ([facility]n (subarachn nce 12-29 Yin kes oid oid 00:00: Medical hemorrhage hemorrhage 00 Ce nter ) ) Respirator Respirator Disease Active [facility]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 12-29ke s 00:00: Medical 00 Center Acute on Acute on Disease Active [facility] chronic chronic 12-29kes anemia anemia 00:00: Medical 00 Center Midline Midline Disease Active [facility] shift of shift of 12-29kes brain due brain due 00:00: Medi samina to to 00 Center hematoma hematoma Unresponsi Unresponsi Disease Active [facility] Acute Acute Disease Active [facility] respirator respirator 12-29 Yin kes y y 00:00: Medical alkalosis alkalosis 00 Cent er Hypovolemi Hypovolemi Disease Active [facility] c shock c shock 12-29kes 00:00: Medical 00 Center Hypertensi Hypertensi Disease Recurre [facility] nce 12[facility]29 [facility] 00:[facility] Center Intracrani Intracrani Disease Active [facility] al 12[facility]28 [facility] hemorrhage hemorrhage 00:00: Me dical 00 Center Allergies, Adverse Reactions, Alerts Allergy Allergy Status Severity Reaction(s) Onset Inactive Treating Comm ents Source Name Type Date Date Clinician NO KNOWN Allergy [facility] Drug Active [facility] ALLERGIE Class ity of S [place] [facility] Social History Social Habit Start Date Stop Date Quantity Comments Source History SDOH [facility] Alcohol Comment Medical C enter History SDOH [facility] Alcohol Std Medical Cente r Drinks History SDOH [facility] Alcohol Binge Medical Zainab ter Exposure to 2022-01-14 2022-01-24 Not sure [facility]-CoV-2 00:00:00 08:21:00 [facility] (event) Branch Alcohol intake 2021-01-14 2021-01-[address] [facility] 00:00:00 00:00:00 non-drinker Medical Cente r (finding) Tobacco use and 2020-12-28 2020-12-[address] Yin kes exposure 00:00:00 00:00:00 Medical Center History SDOH 2020-12-28 2020-12-[address] [facility] Alcohol Frequency 00:00:00 00:00:00 [facility] [place] Center Sex Assigned At [address] Yin kes 00:00:00 00:00:00 [facility] [place] Center Smoking Status Start Date Stop Date Source Tobacco smoking consumption [facility] unknown Branch Never smoker [facility] ical Center Medications Ordered Filled Start Stop Current Ordering Indication Dosage Frequency Signature Comments Components Source Medication Medication Date Date Medication? Clinician (SIG) Name Name NaCl 0.9% 2021- No 1000mL at 999 Uni vers (NS) bolus 01-24 mL/hr, ity of infusion 15:00: 16:03 1,000 mL, [place] 1,000 mL 00 :00 IV Medical Infusion, Branch ONCE, 1 dose, On Thu01/24/22 at 1000, STAT ondansetron 2021- No 4mg 4 mg, Slow Univers (ZOFRAN 01-24 IV Push, ity of (PF)) 14:00: 14:20 ONCE, 1 [place] injection 4 00 :00 dose, On Medi samina mg 01/24/22 Branch at 0900, SYLVIA bisacodyL 2021- No [id number] 10mg Insert 1 Univers 10 mg 01-24 Suppositor ity of suppository 00:00: 04:59 y into [place] 00 :00 rectum in [facility] morning for 30 days. amLODIPine 2021-2021- No [id number] 10mg Take 1 Univers 10 mg 01-24 tablet by ity of tablet 00:00: 04:59 mouth in [place] 00 :00 [facility] for 30 days. bisacodyL 2021-2021- No [id number] 10mg Insert 1 Univers 10 mg 01-24 Suppositor ity of suppository 00:00: 04:59 y into [place] 00 :00 rectum in [facility] morning for 30 days. amLODIPine 2021-0 2021- No [id number] 10mg Take 1 Univers 10 mg 01-24 tablet by ity of tablet 00:00: 04:59 mouth in [place] 00 :00 [facility] for 30 days. bisacodyL 2021-0 2021- No [id number] 10mg Insert 1 Univers 10 mg 01-24 Suppositor ity of suppository 00:00: 04:59 y into [place] 00 :00 rectum in [facility] morning for 30 days. amLODIPine 2021-0 2021- No [id number] 10mg Take 1 Univers 10 mg 01-24 tablet by ity of tablet 00:00: 04:59 mouth in [place] 00 :00 [facility] for 30 days. amLODIPine 0 Yes 10mg 10 mg, Unive rs (NORVASC) 01-23 Oral, ity of tablet 10 14:00: DAILY, [place] mg 00 First dose Medical (after Branch last modificati on) on Bharati 01/23/22 at 0900, Until Discontinu ed, Routine thiamine 2021-0 Yes 100mg Take 100 Univ ers (VITAMIN 9- mg by ity of B-1) 100 mg 12:59: mouth in [place] tablet 28 the Medical morning. Branch Vitamin 2022-0 Yes 1000ug Take 1,000 Un tania B-12 1,000 9-01 mcg by ity of mcg tablet 12:59: mouth in [place] 28 the Medical morning. Branch foLIC acid 2022-0 Yes 1mg Take 1 mg Un tania 1 mg tablet 9- by mouth ity of 12:59: in the [...] 28 the Medical morning. Branch foLIC acid 2022-0 Yes 1mg Take 1 mg Un tania 1 mg tablet 9- by mouth ity of 12:59: in the [...] 28 the Medical morning. Branch foLIC acid 2022-0 Yes 1mg Take 1 mg Un tania 1 mg tablet - by mouth ity of 12:59: in the [...] 28 the Medical morning. Branch foLIC acid 2022-0 Yes 1mg Take 1 mg Un tania 1 mg tablet 01-23 by mouth ity of 12:59: in the [place] 28 morning. Medical Branch amLODIPine 2022-0 2022- No 5mg Take 5 mg U nivers 5 mg tablet 01-23 by mouth ity of 10:26: 00:00 in the [place] 52 :00 morning. Medical Daughter Branch gives it to patient by mouthPatie nt's gives it to patient through PEG tube amLODIPine 2021- No 5mg 5 mg, [facility] 01-23 Oral, ity of tablet 5 mg 02:15: 01:43 ONCE, 1 [place] 00 :[place] dose, On Medical Thu01/22/22 at 2115, Routine hydrALAZINE Yes 10mg 10 mg, Univ ers (APRESOLINE 01-23 Oral, ity of ) tablet 10 01:18: Q6HPRN, [place] mg 11 Starting Medical on Thu01/22/22 at 2018, Until Discontinu ed, Routine, FOR SBP > 160, DBP > 100. potassium No 10meq 10 mEq, IV Univers chloride in 01-22 Piggyback, i ty of water 10 14:30: 18:58 Q1H, 4 [place] mEq/100 mL 00 :16 doses, Medical RTU 10 mEq First dose [facility] on Thu01/22/22 at 0930, Last dose on Thu01/22/22 at 1200, Administer over 60 Minutes, 100 mL bisacodyL Yes 10mg 10 mg, Univer s (DULCOLAX) 01-22 Rectal, ity of suppository 14:00: DAILY, [place] 10 mg 00 First dose Medical on Thu01/22/22 at 0900, Until Discontinu ed, Routine amLODIPine 2021- No 5mg 5 mg, [facility] 01-22 Oral, ity of tablet 5 mg 14:00: 01:21 DAILY, [place] 00 :15 First dose Medical on Thu01/22/22 at 0900, Until Discontinu ed, Routine amLODIPine 2021- No 5mg 5 mg, [facility]ive [facility] 01-22 Enteral, ity o f tablet 5 mg 03:45: 02:56 ONCE, 1 [place] :[place] dose, On Medical Thu01/21/22 at 2245, Routine enoxaparin 2022-0 Yes 40mg 40 mg, Unive rs (LOVENOX) 01-21 Subcutaneo ity of injection 22:00: [place], DAILY, [place] 40 mg 00 First dose Medical on Thu01/21/22 at 1700, Until Discontinu ed, Routine ondansetron Yes 4mg 4 mg, Slow Univers (ZOFRAN 8 IV Push, ity of (PF)) 21:08: Q6HPRN, [place] injection 4 02 Starting Medi samina mg on Thu01/21/22 at 1608, Until Discontinu ed, Routine, Nausea and Vomiting (N/V) acetaminoph Yes 650mg 650 mg, Un tania en 830 Oral, ity of (TYLENOL) 21:07: Q6HPRN, [place] tablet 650 15 Starting Medic al mg on Thu01/21/22 at 1607, Until Discontinu ed, Routine, Pain (scale 1-3) NaCl 0.9% Yes 1000mL at 100 Univ ers (NS) IV 8-30 mL/hr, ity of infusion 18:30: Intravenou [place] 1,000 mL 00 s, Medical CONTINUOUS Branch , Starting on Thu01/21/22 at 1330, Until Discontinu ed, Routine cefTRIAXone 2021- No 1000mg 1,000 mg, Univers (ROCEPHIN) 01-2130 IV ity of 1,000 mg in 17:15: 17:55 Piggyback, [place] NaCl 0.9% 00 :00 ONCE, 1 Medical (NS) 50 mL dose, On Branc h MINI-BAG Thu01/21/22 at 1215, Administer over 30 Minutes, 50 mL
Reas on for Anti-Infec tive: Documented Infection< br>Documen alexandre Infection Site: Urine<br&g t;Duration of Therapy: Other (see Comments) iopamidol 2021- No [id number] 60mL 60 mL, Univers (ISOVUE 01-2130 Intravenou ity o f 370-500 mL) 16:10: 16:11 s, ONCE, 1 [place] injection 00 :00 dose, On Medica l 60 mL [facility] 01/21/22 at 1130, Routine cyanocobala 2021-0 Yes 100ug QD Take [address] [facility] min, 8-28 tablet [facility] vitamin 00:00: (100 mcg Medica l B-12, 100 00 total) by Cente r MCG tablet mouth daily. thiamine 2020-0 Yes 100mg QD Take [address] 100 MG 8-28 tablet [facility] tablet 00:00: (100 mg Medical 00 total) by Center mouth daily. cyanocobala 2020-0 Yes 100ug QD Take [address] [facility] min, 8-28 tablet [facility] vitamin 00:00: (100 mcg Medica l B-12, 100 00 total) by Cente r MCG tablet mouth daily. thiamine 2020-0 Yes 100mg QD Take [address] 100 MG 8-28 tablet [facility] tablet 00:00: (100 mg Medical 00 total) by Center mouth daily. cyanocobala 2020-0 Yes 100ug QD Take [address] [facility] [...] QD Take [address] n 01-19- tablet [facility]ukes (LEVAQUIN) 00:00: 00:00 (750 mg Med ical 750 MG 00 :00 total) by Center tablet mouth daily for 5 days. amLODIPine 0 2020- No hypertensio 5mg QD Take [address] (NORVASC) 5 -18 01-27 n by mouth [place] MG tablet 09:26: 00:00 daily. Medic al 23 :00 Center folic acid 2020-0 Yes 1mg QD Take 1 CHI S t (FOLVITE) 1 -27 tablet (1 [place] MG tablet 00:00: [...] mouth every 4 (four) hours. folic acid 2020-0 Yes 1mg QD Take 1 CHI S t (FOLVITE) 1 8-27 tablet (1 [place] MG tablet 00:00: [...] mouth every 4 (four) hours. folic acid 2020-0 Yes 1mg QD Take 1 CHI S t (FOLVITE) 1 8-27 tablet (1 [place] es MG tablet 00:00: [...] Center mouth every 4 (four) hours. modafiniL 2020-0 2021- No Take 1 CHI S t (PROVIGIL) 8-27 09-10 tablet [facility]ukes 200 MG 00:00: 23:59 (200 mg Medical tablet 00 :00 total) by Center mouth daily for 7 days, THEN 0.5 tablets (100 mg total) daily for 7 days. Max Daily Amount: 200 mg. levETIRAcet 2020-[address] am (KEPPRA) 8-24 [facility] 100 mg/mL 00:00: Medical solution 00 Center levETIRAcet Yes [facility] am (KEPPRA) 01-15 [facility] 100 mg/mL 00:00: Medical solution 00 [place] folic acid 2020- No 1mg QD Take [address] (FOLVITE) 1 01-15 tablet (1 Yin kes MG tablet 00:00: 00:00 mg total) Me dical 00 :00 by mouth Center daily. levETIRAcet 2020- No 500mg Q.5D 5 mLs ([address] am (KEPPRA) 01-15 mg total) Yin kes 500 mg/5 mL 00:00: 00:00 by [place] dical (5 mL) Soln 00 :00 Tube [...] kg Heart rate 2022-01-24 17:45:00 73 /min [facility] Respiratory rate 2022-01-24 17:45:00 30 /min [facility] Oxygen saturation in 2022-01-24 17:45:00 96 /min [facility] blood by [facility] Pulse oximetry Branch Systolic blood 2022-01-24 17:00:00 123 mm[Hg] Univer sity of pressure [place] [facility] Diastolic blood 2022-01-24 17:00:00 75 mm[Hg] Unive rsity of [facility] Medical Ler[place] Body temperature 2022-01-24 13:19:00 36.67 [place] Univ ersity of [place] [facility] Body weight 2022-01-24 13:19:00 58.06 kg Universi ty [facility] [place] [facility] BMI 2022-01-24 13:19:00 23.41 kg/m2 [facility] [place] [facility] Respiratory rate 2022-01-23 13:25:00 16 /min [facility] ersity of [place] [facility] Leroy Oxygen saturation in 2022-01-23 13:25:00 92 /min University Arterial blood by [facility] Pulse oximetry Branch Heart rate 2022-01-23 13:25:00 89 /min [facility]i [facility] [place] [facility] Systolic blood 2022-01-23 12:27:00 135 mm[Hg] Univer sity of [facility] Medical Branch Diastolic blood 2022-01-23 12:27:00 86 mm[Hg] Unive rsity of [facility] Medical Ler[place] Body temperature 2022-01-23 12:27:00 36.11 Niecy [facility] ersity of [place] [facility] Leroy Body weight 2022-01-23 09:07:00 58.469 kg [facility]i [facility] [place] [facility] BMI 2022-01-23 09:07:00 23.58 kg/m2 [facility] [place] [facility] Body height 2022-01-21 19:22:00 157.5 cm [facility] [place] [facility] WEIGHT 2021-01-18 04:35:00 66.225 kg WEIGHT 2021-01-17 06:00:00 64.864 kg WEIGHT 2021-01-14 06:00:00 64.864 kg WEIGHT 2021-01-13 06:00:00 64.864 kg HEIGHT 2020-12-28 14:08:00 162.6 cm WEIGHT 2020-12-28 09:20:00 65.2 kg Heart rate 2021-01-19 08:29:00 98 /min [facility] Respiratory rate 2021-01-19 08:29:00 18 /min [facility] Oxygen saturation in 2021-01-19 08:29:00 96 /min [facility] Arterial blood by Medical Ce nter Pulse oximetry Systolic blood 2021-01-19 07:31:00 108 mm[Hg] [facility] pressure [facility] Diastolic blood 2021-01-19 07:31:00 70 mm[Hg] [facility] Body temperature 2021-01-19 07:31:[address] [facility] Body weight 2021-01-18 04:35:00 66.225 kg [facility] BMI 2021-01-18 04:35:00 25.06 kg/m2 [facility] Body height 2021-01-01 11:27:00 162.6 cm [facility] Procedures Procedure Date / Time Performing Clinician Source Performed REFERRAL- 2022-01-29 05:01:00 Doctor Unassigned, No [facility] REQUEST/RESPONSE Name Medical Branch XR CHEST 1 VW 2022-01-22 11:34:32 Riley Bean [facility] MAGNESIUM 2022-01-22 10:24:00 [facility]ABOLIC PANEL 2022-01-22 10:24:00 Riley Bean [facility] (NA, K, CL, CO2, GLUCOSE, Medica l Branch BUN, CREATININE, CA) CBC WITH DIFF 2022-01-22 10:24:00 [facility] 2022-01-21 17:25:00 Marcelino Heredia [facility] COVID-19 (ID NOW RAPID 2022-01-21 16:52:00 Marcelino Heredia [facility] TESTING) [facility] CT ABDOMEN PELVIS W 2022-01-21 16:15:23 Marcelino Heredia [facility] CONTRAST [facility] URINALYSIS 2022-01-21 15:38:00 Marcelino Heredia [facility] URINE DRUG (IMMUNOASSAY) 2022-01-21 15:38:00 Marcelino Heredia [facility] DRUG Medical [facility] nc SCREEN W/O REFLEX LIPASE 2022-01-21 15:04:00 Marcelino Heredia [facility] COMP. METABOLIC PANEL 2022-01-21 15:04:00 Marcelino Heredia [facility] ([id number]) [facility] CBC WITH DIFF 2022-01-21 15:04:00 Marcelino Heredia [facility] PROTHROMBIN TIME / INR 2022-01-21 15:04:00 Marcelino Heredia [facility] ACTIVATED PARTIAL 2022-01-21 15:04:00 Marcelino Heredia [facility] POCT-GLUCOSE METER 2021-01-19 06:06:00 Tracee-Pankaj, Sung In [facility] POCT-GLUCOSE METER 2021-01-19 00:08:00 Tracee-Pankaj, Sung In [facility] POCT-GLUCOSE METER 2021-01-18 18:00:00 Tracee-Pankaj, Sung In [facility] POCT-GLUCOSE METER 2021-01-18 13:03:00 Tracee-Pankaj, Sung In [facility] POCT-GLUCOSE METER 2021-01-18 12:18:00 Tracee-Pankaj, Sung In [facility] SARS-COV2/RT-PCR ([facility] & 2021-01-18 10:03:00 Tracee-Pankaj, Sung In [facility] POCT-GLUCOSE METER 2021-01-18 06:22:00 Tracee-Pankaj, Sung In [facility] CBC W/PLT COUNT & AUTO 2021-01-18 06:10:00 Maximo [facility] BASIC METABOLIC PANEL (7) 2021-01-18 06:10:00 Maximo formerly [facility] POCT-GLUCOSE METER 2021-01-18 00:37:00 Tracee-Pankaj, Sung In [facility] POCT-GLUCOSE METER 2021-01-17 17:27:00 Tracee-Pankaj, Sung In [facility] EEG AWAKE AND DROWSY 2021-01-17 15:12:00 Maximo [facility] URINE CULTURE 2021-01-17 14:34:00 Deanne Gonzalez [facility] URINALYSIS W/ REFLEX 2021-01-17 14:34:00 Deanne Gonzalez [facility] URINE CULTURE [facility] POCT-GLUCOSE METER 2021-01-17 12:25:00 Tracee-Pankaj, Sung In [facility] XR CHEST 1 VIEW PORTABLE 2021-01-17 09:50:00 Deanne Gonzalez [facility] / BEDSIDE [facility] BASIC METABOLIC PANEL (7) 2021-01-17 05:36:00 Miri Murillo [facility] CBC W/PLT COUNT & AUTO 2021-01-17 05:36:00 Miri Murillo [facility] DIFFERENTIAL [facility] MAGNESIUM 2021-01-17 05:36:00 Miri Murillo [facility] PHOSPHORUS 2021-01-17 05:36:00 Miri Murillo [facility] (CELLAVISION MANUAL DIFF) 2021-01-17 05:36:00 Miri Murillo [facility] POCT-GLUCOSE METER 2021-01-17 05:25:00 Tracee-Pankaj, Sung In [facility] POCT-GLUCOSE METER 2021-01-17 00:20:00 Tracee-Pankaj, Sung In [facility] POCT-GLUCOSE METER 2021-01-16 18:22:00 Tracee-Pankaj, Sung In [facility] SARS-COV2/RT-PCR ([facility] & 2021-01-16 17:47:[address] [facility] REF LABS) Medical [place] CTA BRAIN 2021-01-16 17:42:00 Deanne Gonzalez [facility] POCT-GLUCOSE METER 2021-01-16 11:55:00 Tracee-Pankaj, Sung In [facility] POCT-GLUCOSE METER 2021-01-16 06:50:00 Sudha Melo [facility] BASIC METABOLIC PANEL (7) 2021-01-16 04:06:00 Miri Murillo [facility] CBC W/PLT COUNT & AUTO 2021-01-16 04:06:00 Miri Murillo [facility] MAGNESIUM 2021-01-16 04:06:00 Miri Murillo [facility] PHOSPHORUS 2021-01-16 04:06:00 Miri Murillo [facility] POCT-GLUCOSE METER 2021-01-16 00:12:00 Kameron, [facility] POCT-GLUCOSE METER 2021-01-15 17:47:00 Kameron, [facility] POCT-GLUCOSE METER 2021-01-15 12:12:00 Kameron, [facility] POCT-GLUCOSE METER 2021-01-15 06:48:00 Kameron, [facility] BASIC METABOLIC PANEL (7) 2021-01-15 05:43:00 Miri Murillo [facility] CBC W/PLT COUNT & AUTO 2021-01-15 05:43:00 Miri Murillo [facility] MAGNESIUM 2021-01-15 05:43:00 Miri Murillo [facility] PHOSPHORUS 2021-01-15 05:43:00 Lidia Miri [facility] POCT-GLUCOSE METER 2021-01-15 00:32:00 Kameron, [facility] POCT-GLUCOSE METER 2021-01-14 18:26:00 Kameron, [facility] SODIUM 2021-01-14 15:39:00 Lidia Miri [facility] POCT-GLUCOSE METER 2021-01-14 11:34:00 Kameron, [facility] INSERTION,GASTROSTOMY 2021-01-14 07:52:00 Miri Murillo [facility] TUBE-LAPAROSCOPIC [facility] POCT-GLUCOSE METER 2021-01-14 05:44:00 Kameron, [facility] BASIC METABOLIC PANEL (7) 2021-01-14 04:27:00 Miri Murillo [facility] CBC W/PLT COUNT & AUTO 2021-01-14 04:27:00 Shantel Barry Allen [facility] MAGNESIUM 2021-01-14 04:27:00 Miri Murillo [facility] PHOSPHORUS 2021-01-14 04:27:00 Miri Muirllo [facility] POCT-GLUCOSE METER 2021-01-13 23:50:00 Kameron, [facility] POCT-GLUCOSE METER 2021-01-13 16:39:00 Kameron, [facility] SODIUM 2021-01-13 15:02:00 Lidia Miri [facility] TYPE AND SCREEN, 2021-01-13 15:02:00 Kristi Gonzalez [facility] POCT-GLUCOSE METER 2021-01-13 12:09:00 Kameron, [facility] POCT-GLUCOSE METER 2021-01-13 05:18:00 Kameron, [facility] CBC W/PLT COUNT & AUTO 2021-01-13 04:17:00 Shantel Barry Allen [facility] BASIC METABOLIC PANEL (7) 2021-01-13 04:16:00 Miri Murillo [facility] MAGNESIUM 2021-01-13 04:16:00 Miri Murillo [facility] PHOSPHORUS 2021-01-13 04:16:00 Lidia Miri [facility] POCT-GLUCOSE METER 2021-01-12 23:43:00 Kameron, [facility] POCT-GLUCOSE METER 2021-01-12 17:14:00 Kameron, [facility] VANCOMYCIN LEVEL, TROUGH 2021-01-12 13:37:[address] [facility] SODIUM 2021-01-12 13:37:00 Miri Murillo [facility] POCT-GLUCOSE METER 2021-01-12 11:59:00 Kameron, [facility] POCT-GLUCOSE METER 2021-01-12 07:52:00 Kameron, [facility] POCT-GLUCOSE METER 2021-01-12 05:56:00 Kameron, [facility] BASIC METABOLIC PANEL (7) 2021-01-12 05:32:00 Miri Murillo [facility] CBC W/PLT COUNT & AUTO 2021-01-12 05:32:00 Barry Funes [facility] MAGNESIUM 2021-01-12 05:32:00 Miri Murillo [facility] PHOSPHORUS 2021-01-12 05:32:00 Miri Murillo [facility] (CELLAVISION MANUAL DIFF) 2021-01-12 05:32:[address] [facility] POCT-GLUCOSE METER 2021-01-11 23:41:00 Kameron, [facility] IR GASTROSTOMY TUBE 2021-01-11 17:16:00 Kameron, [facility] ukes INSERTION W/FLUORO Medical Cente r POCT-GLUCOSE METER 2021-01-11 12:16:00 Kameron, [facility] PT/APTT 2021-01-11 10:13:00 Kameron, [facility] POCT-GLUCOSE METER 2021-01-11 06:20:00 Kameron, [facility] SODIUM 2021-01-11 04:47:00 Miri Murillo [facility] BASIC METABOLIC PANEL (7) 2021-01-11 04:47:00 Miri Murillo [facility] CBC W/PLT COUNT & AUTO 2021-01-11 04:47:00 Barry Funes [facility] MAGNESIUM 2021-01-11 04:47:00 Miri Murillo [facility] PHOSPHORUS 2021-01-11 04:47:00 Miri Murillo [facility] (CELLAVISION MANUAL DIFF) 2021-01-11 04:47:[address] [facility] POCT-GLUCOSE METER 2021-01-11 00:05:00 Kameron Sudha [facility] C. DIFFICILE GDH TOXIN 2021-01-10 08:33:00 Coreen Marsh [facility] BASIC METABOLIC PANEL (7) 2021-01-10 08:33:00 Miri Murillo [facility] CBC W/PLT COUNT & AUTO 2021-01-10 08:33:00 Barry Funes [facility] MAGNESIUM 2021-01-10 08:33:00 Miri Murillo [facility] PHOSPHORUS 2021-01-10 08:33:00 Miri Murillo [facility] VANCOMYCIN LEVEL, TROUGH 2021-01-10 08:33:[address] [facility] POCT-GLUCOSE METER 2021-01-10 06:02:00 Toña, [facility] POCT-GLUCOSE METER 2021-01-09 23:24:00 Toña [facility] SODIUM 2021-01-09 16:00:00 Miri Murillo [facility] POCT-GLUCOSE METER 2021-01-09 15:59:[address] [facility] SARS-COV2/RT-PCR ([facility] & 2021-01-09 15:21:00 Miri Murillo [facility] REF LABS) [facility] BASIC METABOLIC PANEL (7) 2021-01-09 02:50:00 Miri Murillo [facility] CBC W/PLT COUNT & AUTO 2021-01-09 02:50:00 Sancho Martinez [facility] MAGNESIUM 2021-01-09 02:50:00 Miri [facility] PHOSPHORUS 2021-01-09 02:50:00 Lidia Miri [facility] SODIUM 2021-01-08 17:25:00 Miri Murillo [facility] XR CHEST 1 VIEW PORTABLE 2021-01-08 11:05:00 Barry Funes [facility] / BEDSIDE Medical Center URINALYSIS W/ REFLEX 2021-01-08 10:56:00 Julian Epstein [facility] URINE CULTURE [facility] BASIC METABOLIC PANEL (7) 2021-01-08 03:14:00 Miri Murillo [facility] CBC W/PLT COUNT & AUTO 2021-01-08 03:14:[address] [facility] MAGNESIUM 2021-01-08 03:14:00 Lidia [facility] PHOSPHORUS 2021-01-08 03:14:00 Lidia [facility] (CELLAVISION MANUAL DIFF) 2021-01-08 03:14:[address] [facility] PROCALCITONIN 2021-01-07 20:15:00 Lisa Adriano [facility] HC TCD COMPLETE 2021-01-07 15:30:[address] [facility] BLOOD CULTURE 2021-01-07 14:25:00 Lisa [facility] SPUTUM CULTURE + GRAM 2021-01-07 14:01:00 Lisa [facility] BLOOD CULTURE 2021-01-07 13:49:00 Lisa [facility] BLOOD GAS, ARTERIAL 2021-01-07 13:49:[address] [facility] COMPREHENSIVE METABOLIC 2021-01-07 13:48:00 Deanne Gonzalez [facility] HEPATIC FUNCTION PANEL 2021-01-07 13:48:[address] [facility] MAGNESIUM 2021-01-07 13:48:[address] [facility] PHOSPHORUS 2021-01-07 13:48:[address] [facility] CT BRAIN WITHOUT IV 2021-01-07 13:35:00 Deanne Gonzalez [facility] XR CHEST 1 VIEW PORTABLE 2021-01-07 11:54:00 Deanne Gonzalez [facility] POCT-GLUCOSE METER 2021-01-07 11:34:[address] [facility] EEG AWAKE AND DROWSY 2021-01-07 08:54:00 Amador Shepard CH [facility] POCT-GLUCOSE METER 2021-01-07 05:29:00 Be [facility] BASIC METABOLIC PANEL (7) 2021-01-07 03:12:00 Miri Murillo [facility] CBC W/PLT COUNT & AUTO 2021-01-07 03:12:00 Sancho Martinez CH I [facility] MAGNESIUM 2021-01-07 03:12:00 Miri Murillo [facility] PHOSPHORUS 2021-01-07 03:12:00 Miri Murillo [facility] POCT-GLUCOSE METER 2021-01-06 23:20:00 Be [facility] POCT-GLUCOSE METER 2021-01-06 17:19:00 Be [facility] SODIUM 2021-01-06 16:23:00 Miri Murillo [facility] POCT-GLUCOSE METER 2021-01-06 11:47:00 Be [facility] CT BRAIN WITHOUT IV 2021-01-06 10:31:00 Bessie Caban [facility] CTA BRAIN 2021-01-06 10:31:00 Bessie Caban [facility] POCT-GLUCOSE METER 2021-01-06 06:30:00 [facility] BLOOD [facility], ARTERIAL 2021-01-06 02:10:00 Lina Parson [facility] BASIC METABOLIC PANEL (7) 2021-01-06 02:09:00 Miri Murillo [facility] CBC W/PLT COUNT & AUTO 2021-01-06 02:09:00 Sancho Martinez CH, I [facility] MAGNESIUM 2021-01-06 02:09:00 Miri Murillo [facility] PHOSPHORUS 2021-01-06 02:09:00 Miri Murillo [facility] POCT-GLUCOSE METER 2021-01-06 01:17:00 Be [facility] SODIUM 2021-01-05 21:04:00 Miri Murillo [facility] POCT-GLUCOSE METER 2021-01-05 17:54:00 [facility] POCT-GLUCOSE METER 2021-01-05 12:02:00 [facility] POCT-GLUCOSE METER 2021-01-05 05:41:00 Be [facility] BLOOD GAS, ARTERIAL 2021-01-05 04:28:00 Sancho Martinez [facility] BASIC METABOLIC PANEL (7) 2021-01-05 04:27:00 Miri Murillo [facility] CBC W/PLT COUNT & AUTO 2021-01-05 04:27:00 Sancho Martinez CH, I [facility] MAGNESIUM 2021-01-05 04:27:00 Miri Murillo [facility] PHOSPHORUS 2021-01-05 04:27:00 Miri Murillo [facility] PROCALCITONIN 2021-01-05 04:27:00 Sancho Martinez [facility] POCT-GLUCOSE METER 2021-01-05 00:12:00 Be [facility] POCT-GLUCOSE METER 2021-01-04 18:03:00 Be [facility] HEMOGLOBIN AND HEMATOCRIT 2021-01-04 14:15:[address] [facility] SODIUM 2021-01-04 14:15:00 Miri Murillo [facility] POTASSIUM 2021-01-04 14:15:[address] [facility] POCT-GLUCOSE METER 2021-01-04 11:44:00 Be [facility] XR CHEST 1 VIEW PORTABLE 2021-01-04 07:42:00 Be [facility] / BEDSIDE [facility] BLOOD GAS, ARTERIAL 2021-01-04 04:14:00 Sancho Martinez [facility] BASIC METABOLIC PANEL (7) 2021-01-04 04:06:00 Miri Murillo [facility] CBC W/PLT COUNT & AUTO 2021-01-04 04:06:00 Sancho Martinez CH I [facility] DIFFERENTIAL [facility] MAGNESIUM 2021-01-04 04:06:00 Miri Murillo [facility] PHOSPHORUS 2021-01-04 04:06:00 Miri Murillo [facility] POCT-GLUCOSE METER 2021-01-04 01:05:00 Sal Salinas [facility] Ce nter POCT-GLUCOSE METER 2021-01-03 17:33:00 Sal Salinas [facility] Ce nter SODIUM 2021-01-03 16:10:00 Miri Murillo [facility] NV CEREBRAL 4 VESSEL 2021-01-03 13:55:00 Sancho Martinez [facility] ANGIOGRAM [facility] [place] EMBOLIZATION EXTENSIVE 2021-01-03 13:55:[address] [facility] POCT-GLUCOSE METER 2021-01-03 11:26:00 Sal Salinas [facility] Ce nter POCT-GLUCOSE METER 2021-01-03 05:22:00 Sal Salinas [facility] Qing ntangelique BASIC METABOLIC PANEL (7) 2021-01-03 04:09:00 Miri Murillo [facility] CBC W/PLT COUNT & AUTO 2021-01-03 04:09:00 Billy Borja [facility] MAGNESIUM 2021-01-03 04:09:00 Miri Murillo [facility] PHOSPHORUS 2021-01-03 04:09:00 Miri Murillo [facility] BLOOD GAS, ARTERIAL 2021-01-03 04:09:00 Sancho Martinez [facility] XR CHEST 1 VIEW PORTABLE 2021-01-03 00:31:00 Aaron Davila [facility] / BEDSIDE [facility] Qing ntangelique POCT-GLUCOSE METER 2021-01-02 23:13:00 Sal Salinas [facility] Qing nter POTASSIUM 2021-01-02 17:50:00 Miri Murillo [facility] POCT-GLUCOSE METER 2021-01-02 17:32:00 [facility] Qing nter HC VENOUS DOPPLER EXT RAJAT 2021-01-02 17:10:[address] [facility] VENOUS DOPPLER LEGS 2021-01-02 16:50:00 Vel Vick [facility] SODIUM 2021-01-02 16:05:00 Miri Murillo [facility] NEURO TCD - COMPLETE 2021-01-02 13:04:27 Barry Funes [facility] POCT-GLUCOSE METER 2021-01-02 11:23:00 Sal Salinas [facility] Qing nter POTASSIUM 2021-01-02 11:14:00 Miri Murillo [facility] MAGNESIUM 2021-01-02 11:14:00 Miri Murillo [facility] POCT-GLUCOSE METER 2021-01-02 05:59:00 Sal Salinas [facility] Qing ntangelique XR CHEST 1 VIEW PORTABLE 2021-01-02 04:28:00 Aaron Davila [facility] / BEDSIDE [facility] ntangelique BASIC METABOLIC PANEL (7) 2021-01-02 03:41:00 Miri Murillo [facility] CBC W/PLT COUNT & AUTO 2021-01-02 03:41:00 Billy Borja [facility] MAGNESIUM 2021-01-02 03:41:00 Miri Murillo [facility] PHOSPHORUS 2021-01-02 03:41:00 Miri Murillo [facility] BLOOD GAS, ARTERIAL 2021-01-02 03:41:00 Sancho Martinez [facility] POCT-GLUCOSE METER 2021-01-01 23:37:00 Sal Salinas [facility] Qing nter MR BRAIN WITHOUT IV 2021-01-01 22:08:[address] [facility] POCT-GLUCOSE METER 2021-01-01 17:45:00 Sal Salinas [facility] Qing ntangelique NEURO TCD - COMPLETE 2021-01-01 17:05:10 Barry Funes [facility] SODIUM 2021-01-01 15:55:00 Miri Murillo [facility] VANCOMYCIN LEVEL, TROUGH 2021-01-01 15:55:[address] [facility] MAGNESIUM 2021-01-01 15:55:00 Vel Vick [facility] POTASSIUM 2021-01-01 15:55:00 RiteshgogoVel tejeda [facility] POCT-GLUCOSE METER 2021-01-01 12:05:00 Sal Salinas [facility] Ce nter BLOOD GAS, ARTERIAL 2021-01-01 07:25:00 Vanita Verito [facility] BASIC METABOLIC PANEL (7) 2021-01-01 05:56:00 Miri Murillo [facility] MAGNESIUM 2021-01-01 05:56:00 Miri Murillo [facility] PHOSPHORUS 2021-01-01 05:56:00 Miri Murillo [facility] POCT-GLUCOSE METER 2021-01-01 05:13:00 Sal Salinas [facility] Ce nter CBC W/PLT COUNT & AUTO 2021-01-01 04:21:00 Billy Borja [facility] XR CHEST 1 VIEW PORTABLE 2021-01-01 00:39:00 Aaron Davila [facility] / BEDSIDE [facility] Ce nter POCT-GLUCOSE METER 2020-12-31 23:26:00 Sal Salinas [facility] Ce nter POCT-GLUCOSE METER 2020-12-31 19:11:00 Sal Salinas [facility] Ce nter SODIUM 2020-12-31 16:09:00 Miri Murillo [facility] POTASSIUM 2020-12-31 16:09:00 Sal Salinas [facility] MAGNESIUM 2020-12-31 16:09:00 Sal Salinas [facility] XR ABDOMEN / KUB 1 VIEW 2020-12-31 13:46:[address] [facility] HC TCD COMPLETE 2020-12-31 13:30:[address] [facility] POCT-GLUCOSE METER 2020-12-31 12:46:00 Sal Salinas [facility] Ce nter BASIC METABOLIC PANEL (7) 2020-12-31 03:46:00 Lina Parson CH, I [facility] CBC W/PLT COUNT & AUTO 2020-12-31 03:46:00 Lina Parson [facility] MAGNESIUM 2020-12-31 03:46:[address] [facility] POCT-GLUCOSE METER 2020-12-31 00:07:00 Sal Salinas [facility] Ce nter PREPARE LEUKO-REDUCED RBC 2020-12-30 23:54:00 Verito Waldron [facility] HEMOGLOBIN AND HEMATOCRIT 2020-12-30 20:57:[address] [facility] POCT-GLUCOSE METER 2020-12-30 17:11:00 Sal Salinas [facility] Ce nter SODIUM 2020-12-30 17:01:00 Miri Murillo [facility] EEG 2-12 HR CONTINUOUS 2020-12-30 16:50:00 Frankie Kitchen [facility] MONITORING WITH VIDEO Medical Ce nter HC TCD COMPLETE 2020-12-30 16:45:[address] [facility] CT BRAIN WITHOUT IV 2020-12-30 12:27:00 Deanne Gonzalez [facility] POCT-GLUCOSE METER 2020-12-30 12:01:00 Sal Salinas [facility] Ce nter SPUTUM CULTURE + GRAM 2020-12-30 09:37:00 Vanita bimal [facility] ST[facility] PROCALCITONIN 2020-12-30 09:37:[address] [facility] URINALYSIS WITH 2020-12-30 07:41:00 [facility] s MICROSCOPIC IF INDICATED [facility] URINALYSIS MICROSCOPIC 2020-12-30 07:41:00 Waldron, [facility] BLOOD CULTURE 2020-12-30 07:40:00 [facility] BLOOD CULTURE 2020-12-30 07:35:00 Waldron, [facility] POCT-GLUCOSE METER 2020-12-30 06:56:00 Sal Salinas [facility] Ce nter EEG 12-26 HR CONTINUOUS 2020-12-30 06:13:00 Sal Salinas [facility] MONITORING WITH VIDEO [facility] BASIC METABOLIC PANEL (7) 2020-12-30 04:55:[address] Ce nter CBC W/PLT COUNT & AUTO 2020-12-30 04:55:[address] [facility] DIFFERENTIAL [facility] Ce nter MAGNESIUM 2020-12-30 04:55:00 Vel Vick [facility] (CELLAVISION MANUAL DIFF) 2020-12-30 04:55:00 Sal Salinas [facility] Ce nter XR CHEST 1 VIEW PORTABLE 2020-12-30 03:22:[address] [facility] / [facility]IDE [facility] Ce nter SODIUM 2020-12-30 00:24:[address] [facility] Ce nter POCT-GLUCOSE METER 2020-12-30 00:09:00 Simeondonnymorena Salinas, [facility] Ce nter SPUTUM CULTURE + GRAM 2020-12-29 17:17:00 Sunnymorena Sailnas, [facility] ST[facility] nter HEMOGLOBIN AND HEMATOCRIT 2020-12-29 17:16:00 Sunnymorena Salinas, [facility] Ce nter POCT-GLUCOSE METER 2020-12-29 17:16:00 Sunnymorena Salinas, [facility] Ce nter SODIUM 2020-12-29 16:17:00 Sal Salinas, [facility] nter TRANSFUSE LEUKO-REDUCED 2020-12-29 15:50:15 Verito Waldron [facility] RED BLOOD CELLS [facility] 2D ECHO W/ DOPPLER 2020-12-29 14:23:23 Sal Salinas [facility] (CW/PW/COLOR) [facility] nter POCT-GLUCOSE METER 2020-12-29 12:19:00 Jordanswathimorena Salinas [facility] St [facility] nter EEG 12-26 HR CONTINUOUS 2020-12-29 11:34:[address] Sal Salinas [facility] I [facility] MONITORING WITH VIDEO [facility] CTA BRAIN 2020-12-29 10:40:00 Deanne Gonzalez [facility] BLOOD GAS, ARTERIAL 2020-12-29 07:43:00 Julian Epstein [facility] BLOOD GAS, ARTERIAL 2020-12-29 06:07:00 Maria Mercado [facility] POCT-GLUCOSE METER 2020-12-29 06:07:00 Sal Salinas, [facility] Ce nter MAGNESIUM 2020-12-29 05:59:00 Sal Salinas, [facility] Ce nter PHOSPHORUS 2020-12-29 05:59:00 Sal Salinas, [facility] Ce nter BASIC METABOLIC PANEL (7) 2020-12-29 05:59:00 Sal Salinas, [facility] Ce nter CBC W/PLT COUNT & AUTO 2020-12-29 05:59:00 Sal Salinas, [facility] DIFFERENTIAL [facility] Ce nter HEMOGLOBIN A1C 2020-12-29 05:59:00 Sal Salinas, [facility] Ce nter (CELLAVISION MANUAL DIFF) 2020-12-29 05:59:00 Sal Salinas, [facility] Ce nter XR CHEST 1 VIEW PORTABLE 2020-12-29 03:01:00 Sal Salinas, C [facility] Ce nter XR ABDOMEN / KUB 1 VIEW 2020-12-28 23:02:[address] [facility] CBC W/PLT COUNT & AUTO 2020-12-28 22:13:00 Sal Salinas [facility] DIFFERENTIAL [facility] Ce nter PT/APTT 2020-12-28 22:13:00 Sal Salinas [facility] Ce nter COMPREHENSIVE METABOLIC 2020-12-28 22:13:[address] [facility] MAGNESIUM 2020-12-28 22:13:[address] [facility] PHOSPHORUS 2020-12-28 22:13:[address] [facility] (CELLAVISION MANUAL DIFF) 2020-12-28 22:13:00 Sal Salinas [facility] Ce nter CT BRAIN WITHOUT IV 2020-12-28 21:03:00 Jason Galan [facility] CONTRAST PORTABLE [facility] PREPARE RBC 2020-12-28 20:43:[address] [facility] ND INSERT 2020-12-28 13:56:27 Sal Salinas [facility] CATH,ART,PERCUT,SHORTTERM [facility] CRANIOTOMY,ANEURYSM 2020-12-28 13:43:[address] [facility] CLIPPING [facility] ABORH, MANUAL 2020-12-28 13:02:[address] [facility] SARS-COV2/RT-PCR ([facility] & 2020-12-28 12:49:00 Coreen Marsh [facility] REF LABS) [facility] HEMOGLOBIN A1C 2020-12-28 12:45:00 Sal Salinas [facility] PHENYTOIN LEVEL, TOTAL 2020-12-28 12:45:00 Sal Salinas [facility] Ce nter TYPE AND SCREEN, 2020-12-28 12:45:00 Coreen Marsh [facility] AUTOMATED [facility] BLOOD GAS, ARTERIAL 2020-12-28 12:40:00 Sal Salinas [facility] Ce nter CT BRAIN WITHOUT IV 2020-12-28 11:17:[address] [facility] CTA BRAIN 2020-12-28 11:17:00 Mauro [facility] POCT-GLUCOSE METER 2020-12-28 11:17:00 Sal Salinas [facility] nter HEPATIC FUNCTION PANEL 2020-12-28 10:04:00 MauroYudelka [facility] APTT 2020-12-28 10:04:00 [facility]/INR 2020-12-28 10:04:[address] [facility] BASIC METABOLIC PANEL (7) 2020-12-28 10:04:00 Sal Salinas [facility] ntangelique CBC W/PLT COUNT & AUTO 2020-12-28 10:04:00 Vel Vick CH I [facility] (CELLAVISION MANUAL DIFF) 2020-12-28 10:04:[address] [facility] XR CHEST 1 VIEW PORTABLE 2020-12-28 09:44:[address] [facility] nter NEUROPHYSIOLOGY REPORT - 2020-12-28 00:00:00 Provider, Default C [facility] SCAN Scanning [facility] REPORT OF PROCEDURE - 2020-12-28 00:00:00 Provider, Default [facility] ENDOSCOPY SCAN Scanning [facility] Plan of Care Planned Activity Planned Date Details Comments Source Future Scheduled 2023-01-[address] [facility] 00:00:00 (Season Ended) [code = [facility] INFLUENZA VACCINE (Season Ended)] Future Scheduled 2022-05-[address] [facility] 00:00:00 (12+) [code = Medical Center DEPRESSION SCREENING (12+)] Future Scheduled 2022-05-25 FALLS RISK SCREENING [facility] Test 00:00:00 [code = FALLS RISK Medical C enter SCREENING] Future Scheduled 2022-01-23 INFLUENZA VACCINE (#1) [facility] 00:00:00 [code = INFLUENZA Medical Ce nter VACCINE (#1)] Future Scheduled 2022-01-[address] [facility] Test 00:00:00 [facility] r Screening (12+) [code = Tobacco Cessation Counseling and Screening (12+)] Future Scheduled 2021-05-[address] [...] 00:00:00 (1 of 1 - Medical Center [id number] PCV13) [code = PNEUMOCOCCAL 65+ YRS (1 of 1 - [id number] PCV13)] Future Scheduled 2010 PNEUMOCOCCAL 65+ YRS [facility] Test 00:00:00 (1 - PCV) [code = Medical Ce nter PNEUMOCOCCAL 65+ YRS (1 - PCV)] Future Scheduled 2010 PNEUMOCOCCAL 65+ YRS [facility] [...] Medical Zain[address] ter VACCINE (#1)] Future Scheduled 1946-03-31 COVID-19 VACCINE (#1) [facility] 00:[facility]:00 [code = COVID-[address] VACCINE (#1)] Future Scheduled [address] [facility] Test 00:00:00 [facility] (procedure) [code = 273379668] Future Scheduled 1945 DXA SCAN [code = DXA [facility] Test 00:00:00 SCAN] [facility] Future Scheduled 1945 DXA SCAN [code = DXA [facility] Test 00:00:00 SCAN] [facility] Encounters Start End Encounter Admission Attending Care Care Encounter Source Date/Time Date/Time Type Type Clinicians Facility Department ID 2020-12-28 Inpatient ER [facility] Neuro ICU [id number] [facility] 09:17:00 HERACLIO RODRIGUEZ 2022-01-29 2022-01-29 Orders Doctor [place] [id number] [facility] 00:00:00 00:00:00 Only Unassigned, HAROON [id number] ity of [place] [facility] [id number] [place] as [id number] [facility] [address] 2022-01-24 2022-01-24 Emergency X BRYCE RODAS ERT [id number] Univers 08:17:00 14:07:00 ADAM ittracee [facility] 2022-01-24 2022-01-24 Emergency Rodas [facility] [id number] Univers 08:17:00 14:07:00 Adam STONE [id number] i ty of [place] [id number] [facility] [id number] [place] [id number] Leroy 2022-01-24 2022-01-24 Transition BRINA Al [id number] Univers 00:00:00 00:00:00 of Care Mariah PERALES [id number] i ty of [place] [id number] [facility] [id number] [facility] [address] 2022-01-21 2022-01-23 Outpatient X [facility] [id number] Univers 09:59:00 12:57:00 NOVA lange [facility] 2022-01-21 2022-01-23 Emergency Marcelino Heredia [facility] [id number] Univers 09:59:00 12:57:00 oNva Damon [id number] [facility] [id number] [facility] [id number] [address] 2021-06-06 2021-06-06 Outpatient DMG DMG [id number] [facility] 12:01:00 12:01:00 [id number] Medica l Group 2021-01-21 2021-01-21 Telephone Perry [facility] [id number] 00:[facility] 00[facility]:[address] [facility] 2021-01-14 2021-01-14 Surgery Lidia [facility] [id number] 08:15:00 09:52:00 Miri Cardenas [facility] 2021-01-14 2021-01-14 Anesthesia Fei Charles [facility] [id number] 08:07:00 09:24:[address]ía [facility] 2021-01-03 2021-01-03 Anesthesia Staci, [facility] [id number] 12:06:00 14:16:00 Event Nathan [facility] 2021-01-03 2021-01-03 Surgery Virtual, [facility] [id number] [facility] 10:30:00 11:30:[address] [facility] 2021-01-02 2021-01-02 Outside Pcp, No [facility] [id number] 00:00:00 00:00:[address] [facility] 2020-12-28 2020-12-28 Anesthesia Damon Stefan Princene [facility] [id number] 13:58:00 20:37:[address] [facility] 2020-12-28 2020-12-28 Surgery Tamreynaer, [facility] [id number] 12:38:00 19:25:[address] [facility] 2020-12-28 2020-12-28 Travel [facility] [id number] [facility] 00:[facility]:00 [facility] Results Test Description Test Time Test Comments Results Result Comments Source COMP. METABOLIC PANEL (14362) 2022-01-21 15:44:19 Test Item Value Reference Range Interpretation Comme nts NA (test code = 8725048150) 138 mmol/L 135-145 K (test code = 1388163193) 3.6 mmol/L 3.5-5 CL (test code = 7813385137) 96 mmol/L 98-108 L CO2 TOTAL (test code = 8810569092) 37 mmol/L 23-31 H AGAP (test code = 5022622546) 2-16 BUN (test code = 2734618603) 38 mg/dL 7-23 H GLUCOSE (test code = 5916640950) 121 mg/dL 70-110 H CREATININE (test code = 0.76 mg/dL 0.5-1.04 6844230512) TOTAL BILI (test code = 0.8 mg/dL 0.1-1.8 3413952864) CALCIUM (test code = 2239838492) 8.5 mg/dL 8.6-10.6 L T PROTEIN (test code = 9390583112) 6.9 g/dL 6.3-8.2 ALBUMIN (test code = 7612618895) 4.1 g/dL 3.5-5 ALK PHOS (test code = 2350060642) 91 U/L 34-122 ALTv (test code = 1742-6) 40 U/L 5-35 H AST(SGOT) (test code = 6909059207) 52 U/L 13-40 H eGFR (test code = 2678880205) mL/min/1.73m2 NETTIE (test code = NETTIE) Association [...] tests). Lab Interpretation (test code = Abnormal 21413-7) [facility] 15[facility]43:59 Test Item Value Reference Range Interpretation Comments LIPASE (test code = 2386228524) 210 U/L 0-220 Lab Interpretation (test code = Normal 60957-1) [facility] THRMPLAS [id number] 15:41:37 Test Item Value Reference Range Interpretation Comments APTT Patient (test See_Comment [Automat ed code = 3173-2) message] The system which generated this result transmitted reference range : 23 - 38 Seconds . The reference range was not used to interpr et this result as normal/abnormal . NETTIE (test code = NETTIE) The [facility] patient population mean normal value for aPTT is 30 seconds. Lab Interpretation Normal (test code = 19088-4) [facility] AustinPROT[facility]OMBIN [facility] / [id number] 15:39:37 Test Item Value Reference Range Interpretation [...] tions. Lab Interpretation (test Normal code = 87446-1) [facility] WITH [id number] 15:33:39 Test Item Value Reference Range Interpretation Comments WBC (test code = See_Comment [Automated 5090-2) message] The sy stem which generated this result transmitted reference range : 4.30 - 11.10 10*3/?L. The reference range was not used to interpret this result as normal/abnormal . RBC (test code = See_Comment [Automated 949-8) message] The sy stem which generated this [...] RDW-SD (test code = 41.8 fL 39-49.9 77136-7) RDW-CV (test code = 12.2 % 12-15.5 788-0) PLT (test code = See_Comment [Automated 777-3) message] The sy stem which generated this result transmitted reference range : 166 - 358 10*3/ ?L. The reference r jesica was not used to interpret this result as normal/abnormal . MPV (test code = 8.3 fL 9.5-12.9 L 07750-4) NRBC/100 WBC (test See_Comment [Automat ed code = 6274606075) message] The system which generated this result transmitted reference range : 0.0 - 10.0 /100 WBCs. The refer ence range was not u sed to interpret th is result as normal/abnormal . NRBC x10^3 (test code See_Comment [Auto mated = 2070116204) message] The s ystem which generated this result transmitted reference range : 10*3/?L. The reference range was not used to interpret this result as normal/abnormal . GRAN MAT (NEUT) % 67.1 % (test code = 770-8) IMM GRAN % (test code 0.30 % = 1870134223) LYMPH % (test code = 22.8 % 736-9) MONO % (test code = 9.0 % 5905-5) EOS % (test code = 0.4 % 713-8) BASO % (test code = 0.4 % 706-2) GRAN MAT x10^3(ANC) 6.41 10*3/uL 1.88-7.09 (test code = 2819986704) IMM GRAN x10^3 (test 0.03 10*3/uL 0-0.06 code = 1391512687) LYMPH x10^3 (test code 2.18 10*3/uL 1.32-3.29 = 731-0) MONO x10^3 (test code 0.86 10*3/uL 0.33-0.92 = 742-7) EOS x10^3 (test code = 0.04 10*3/uL 0.03-0.39 711-2) BASO x10^3 (test code 0.04 10*3/uL 0.01-0.07 = 704-7) Lab Interpretation Abnormal (test code = 49296-9) [facility]-Glucose [id number] 06:20:00 Test Item Value Reference Range Interpretation Comments POC-Glucose Meter (test 130 mg/dL 70-110 H : No tified RN/MD: code = 1538) TESTED AT [place] [id number] [facility], 770 30: Chip Silo Tender/Techni marielos ID = [id number] for CAREY KEMP Lab Interpretation (test Abnormal code = 90090-9) [facility] CenterPOW[facility]GLU[facility] [id number] 06:20:00 Test Item Value Reference Range Interpretation Comments POC-GLUCOSE METER 130 mg/dL 70-110 H : Notified RN/MD: (NAZARIO) (test code = TESTED AT [place] [address] 1538) [facility], [address]: Chip Silo Tender/Techni marielos ID = [id number] for ROBIN KEMP POCT-GLUCOSE [id number] 00:19:00 Test Item Value Reference Range Interpretation Comments POC-GLUCOSE METER 114 mg/dL 70-110 H : Notified RN/MD: (NAZARIO) (test code = TESTED AT [place] [address] 1538) [facility], [address]: Chip Silo Tender/Techni marielos ID = [id number] for ROBIN KEMP SARS-CoV2/RT-PCR (Asymptomatic ONLY)2021-01-18 19:18:00 Test Item Value Reference Range Interpretation Comments SARS-COV2/RT-PCR (test Negative Negative code = 40172-3) NETTIE (test code = NETTIE) Negative result [...] Healthcare Providers:https://www.abelardo matos/taco/RT SARS-CoV-2 HCP Fact Sheet 51-742350.pdf Fact Sheet for Healthcare Patients:https://www.TeachersMeet.com/taco/RT SARS-CoV-2 Patient Fact Sheet EN 51-439524L0.pdf Lab Interpretation Normal (test code = 16248-5) [facility])2021-01-18 19:18:00 Test Item Value Reference Range Interpretation Comments SARS-COV2/RT-PCR (test code = Negative Negative 9950328) Negative result for this test determines that [...] 564(g) of the Act.Testing was performed using [employer] SARS-CoV-2 assay.Fact Sheet for Healthcare Providers:https://www.Trem[employer]star [employer]/taco/RT SARS-CoV-2 HCP Fact Sheet 51- 013493.pdfFact Sheet for Healthcare Patients:https://www.[employer]/taco/RT SARS-CoV-2 Patient Fact Sheet EN 51-378076T1.pdfPOCT-GLUCOSE [id number] 18:11:00 Test Item Value Reference Range Interpretation Comments POC-GLUCOSE METER 125 mg/dL 70-110 H : TESTED A T [facility] 6720 ([place]) (test code = [facility], 1538) [address]: Chip Silo Tender/Techni marielos ID = [id number] for Ca vitt, Eminae POCT-GLUCOSE [id number] 13:14:00 Test Item Value Reference Range Interpretation Comments POC-GLUCOSE METER 103 mg/dL 70-110 : TESTED A T [facility] 6720 ([place]) (test code = [facility]K [facility], 1538) [address]: Chip Silo Tender/Techni marielos ID = [id number] for Ca vitt, Eminae POCT-GLUCOSE [id number] 12:29:00 Test Item Value Reference Range Interpretation Comments POC-GLUCOSE METER 108 mg/dL 70-110 : TESTED A T [facility] 6720 (BEAKER) (test code = [place], 1538) [address]: Chip Silo Tender/Techni marielos ID = [id number] for Gabriel Minaya Basic Metabolic [id number] 10:16:00 Test Item Value Reference Range Interpretation [...] Calcium (test code = 8.8 mg/dL 8.4-10.2 59791-8) EGFR (test code = 92 mL/min/1.73 [place] [address]-5) NOT ACCURATE CREATININE CLEARANCE IN PREDICTING GLOMERULAR FILTRATION RATE . ESTIMATED GFR I S NOT APPLICABLE FOR DIALYSIS PATIENTS. NETTIE (test code = NETTIE) Chip Silo Tender ID - PIAYA L Lab Interpretation Abnormal (test code = 87857-5) [facility] CenterBASIC [facility]ABOLIC [id number] 10:16:00 Test Item Value Reference Range Interpretation [...] S NOT APPLICABLE FOR DIALYSIS PATIEN TS. Chip Silo Tender ID - PIAYA LCBC with platelet count + automated [id number] 06:35:00 Test Item Value Reference Range Interpretation Comments WBC (test code = 6690-2) 12.6 See_Comment H [A utomated message] The system V Wave generated this result transmitted ref erence range: 3.5 - 10 .5 K/L. The refe rence range was not u sed to interpret this result as normal/abnor mal. RBC (test code = 789-8) 3.22 See_Comment L [Au tomated message] The system V Wave generated this result transmitted ref erence range: 3.93 - 5 .22 M/L. The refe rence range was not u sed to interpret this result as normal/abnor mal. MCHC (test code = 786-4) 31.4 See_Comment L [A utomated message] The system [employer] Wave generated this result transmitted ref erence range: [...] See_Comment [Aut omated message] 777-3) The system [employer] Wave generated this result transmitted ref erence range: 150 - 45 0 K/CU MM. The referen ce range was not u sed to interpret this result as normal/abnor mal. MPV (test code = 8.5 fL 9.4-12.3 L 40215-5) nRBC (test code = 413) 0 See_Comment [Aut omated message] The system V Wave generated this result transmitted ref erence range: [...] H [Aut omated message] 670) The system V Wave generated this result transmitted ref erence range: 1.56 - 6 .13 K/L. The refe rence range was not u sed to interpret this result as normal/abnor mal. # Lymphs (test code = 1.78 See_Comment [Auto mated message] 414) The system V Wave generated this result transmitted ref erence range: 1.18 - 3 .74 K/L. The refe rence range was not u sed to interpret this result as normal/abnor mal. # Monos (test code = 0.91 See_Comment H [Autom ated message] 415) The system V Wave generated this result transmitted ref erence range: 0.24 - 0 .36 K/L. The refe rence range was not u sed to interpret this result as normal/abnor mal. # Eos (test code = 416) 0.29 See_Comment [Au tomated message] The system V Wave generated this result transmitted ref erence range: 0.04 - 0 .36 K/L. The refe rence range was not u sed to interpret this result as normal/abnor mal. # Baso (test code = 417) 0.04 See_Comment [A utomated message] The system V Wave generated this result transmitted ref erence range: 0.01 - 0 .08 K/L. The refe rence range was not u sed to interpret this result as normal/abnor mal. Immature 1 % 0-1 Granulocytes-Relative (test code = 2801) Lab Interpretation (test Abnormal code = 94952-5) [facility] CenterPOCT[facility]GLUCOSE [id number] 06:35:00 Test Item Value Reference Range Interpretation Comments POC-GLUCOSE METER 114 mg/dL 70-110 H : TESTED A T [facility] 6720 (BEAKER) (test code = JOAN Haddad [facility], 1538) [address]: Chip Silo Tender/Techni marielos ID = [id number] for BOLA GARVIN CBC W/PLT COUNT & AUTO [id number] 06:35:00 Test Item Value Reference Range Interpretation [...] PERCENT (BEAKER) (test code = 2801) POCT-GLUCOSE [id number] 00:53:00 Test Item Value Reference Range Interpretation Comments POC-GLUCOSE METER 112 mg/dL 70-110 H : TESTED A T [facility] 6720 (BEAKER) (test code = JOAN Haddad [facility], 1538) [address]: Chip Silo Tender/Techni marielos ID = [id number] for BOLA GARVIN POCT-GLUCOSE [id number] 17:41:00 Test Item Value Reference Range Interpretation Comments POC-GLUCOSE METER 120 mg/dL 70-110 H : TESTED A T [facility] 6720 (BEAKER) (test code [facility], = 1538) [address]: Chip Silo Tender/Techni marielos ID = [id number] for TSEJUAN ANTONIO AQUINO EEG AWAKE AND [id number] 16:01:00For STAT EEG- after 5 PM weekdays, weekends and holidays, page the on-call EEG TechReason for exam:->Altered mental status, waxing and waning neurological exam [facility] : 1945 Sex: FNEUROPHYSIOLOGY EEG REPORT DATES OF TEST: 01/17/21DATE OF REPORT: 01/17/21Name: Sonu ArellanoMRN: [id number]: [id number] time: 14:51Stop time: 15:91CLC16: R56.9 CPT: 44242ﺒHistory: 75 yo female with history of HTN and AMSMedications: levetiracetam, modafinil, nimodipine, enoxaparin, famotidine, ipratropium-albuterol, cyanocobalaminTECHNICAL SUMMARY: This is a digital video- EEG recorded with 32 input channels reviewed with bipolar and referential montages using the modified [facility]an[facility] nomenclature. DESCRIPTION OF RECORD: During a maximally stimulated state, there is no well defined posterior dominant rhythm. The background lacks a voltage or frequency gradient. It is represented by a moderate voltage 4-6 Hz and occasional 1-3 Hz frequencies. Spontaneous variability is preserved and the record is reactive to sensory stimulation applied by the survey technologist as evidenced bythe predominance of faster frequency spectra following sensory stimulation. Sleep patterns were not recorded.Focal features:a. Focal background attenuation and slow1-3 hz activity, right hemisphereb. Intermittent focal slow 1-3 hz activity left temporal and occipital𗒣Events: No electro-clinical or electrographic seizuresHyperventilation was not performed. PHOTIC STIMULATION: Photic stimulat ion across a broad frequency spectrum (1-33 Hz) did not trigger abnormal waveforms or responses. 퉀ECG: Sinus rhythm IMPRESSION: Abnormal EEG in comac. [...] electro-clinical or electrographic seizures observed during this recording.＀颔𑃐Melody Cisse MD, PhDEpilepsy Attending AWAKE AND [id number] 16:01:00Interface, External Ris In - 01/17/2021 4:01 PM CDTNEUROPHYSIOLOGY EEG REPORT DATES OF TEST: 01/17/21DATE OF REPORT: 01/17/21Name: Sonu ArellanoMRN: [id number]: [id number] time: 14:51Stop time:15:89LVP73: R56.9 CPT: 63577𓵨History: 75 yo female with history of HTN [...] reactive to sensory stimulation applied by the survey technologist as evidenced by the predominance of faster frequency spectra following sensory stimulation. Sleep patterns were not recorded.Focal features:a. Focal background attenuation and slow1-3 hz activity, right hemisphereb. Intermittent focal slow 1-3 hz activity left temporal and occipitalEvents: No electro-clinical or electrographic seizuresHyperventilation was not performed. PHOTIC STIMULATION: Photic stimulation across a broad frequency spectrum (1-33Hz) did not trigger abnormal waveforms or responses. 𗵾ECG: Sinus rhythm IMPRESSION: Abnormal EEG in comac. [...] electro-clinical or electrographic seizures observed during this recording.𑸝𕀣Melody Cisse MD, PhDEpilepsy Attending [facility] CenterUrinalysis w/Microscopic + Reflex to Culture 2021-01-17 15:09:00 Test Item Value Reference Range Interpretation Comments Color, UA (test code Light Yellow = 5778-6) Clarity, UA (test Clear code = 5767-9) Specific Orange, UA 1.021 1.001-1.035 (test code = 5811-5) pH, UA (test code = 6.0 5.0-8.0 5803-2) Protein, UA (test 20 mg/dL Negative A code = 50212-5) Glucose, UA (test Negative Negative code = 365) Ketones, UA (test Negative Negative code = 2514-8) Bilirubin, UA (test Negative Negative code = 15402-0) Blood, UA (test code Small Negative A = 36801-4) Nitrite, UA (test Positive Negative A code = 5802-4) Leukocytes, UA (test Large Negative A code = 5799-2) Urobilinogen, UA 0.2 mg/dL 0.2-1 (test code = 98539-4) RBC, UA (test code = 7 See_Comment [Autom ated 63265-7) message] The system which generated this result [...] . Bacteria, UA (test Few code = 53784-3) Mucus (test code = Rare 8247-9) Squam Epithel, UA <1 See_Comment [Automate d (test code = 72153-6) messag e] The system which generated this result transmitted reference range : /HPF. The reference range was not used to interpret this result as normal/abnormal . Crystals, Urine (test None Seen code = 58406-0) Yeast (test code = Occasional 55875-9) Specimen Source (test code = 2795) NETTIE (test code = NETTIE) Chip Silo Tender ID - [auto]Chip Silo Tender ID - tech Lab Interpretation Abnormal (test code = 35519-8) [facility] CenterURINALYSIS W/ REFLEX URINE [id number] 15:09:00 Test Item Value Reference Range Interpretation [...] Occasional 1585) SOURCE(BEAKER) (test code = 2795) Chip Silo Tender ID - [auto]Chip Silo Tender ID - techPOCT-GLUCOSE [id number] 12:38:00 Test Item Value Reference Range Interpretation Comments POC-GLUCOSE METER 119 mg/dL 70-110 H : TESTED A T [facility] 6720 (BEAKER) (test code [facility], = 1538) [address]: Chip Silo Tender/Techni marielos ID = [id number] for LINDA TOLBERTA CT, CTANGIO [id number] 12:18:00Unlisted Reason for Exam - Click Yes and Enter Reason Below->YesUnlisted Reason for Exam->SAH s/p clip, AMS [facility] 1945 Sex: FAddendum BeginsREPORT [...] Signed: Opal Carrilloort Verified Date/Time: 01/16/2021 18:36:53 RAD, CHEST, 1 VIEW, NON [id number] 10:52:00Reason for exam:->amsShould this be performed at the bedside?->Yes [facility] : 1945 Sex: FFINALREPORT INDICATION: ams COMPARISON: None TECHNIQUE: Single frontal view of the chest. FINDINGS: Lungs and pleura: Right greater than left airspace diseaseHeart and mediastinum: Normal heart size. Unremarkable mediastinal contours.Osseous structures: No acute abnormality.Other: None. IMPRESSION: Right greater than left airspace disease concerning for pneumonia Signed: Ana Arreolaort Verified Date/Time: 01/17/2021 10:52:35 Reading Location: [facility] Radiology ReadingRoom XR chest 1 view portable / [id number] 10:52:00Interface, External Ris In - 01/17/2021 10:54 [...] MDReport Verified Date/Time: 01/17/2021 10:52:35 Reading Location: [facility] Radiology Reading Room [facility])2021-01-17 10:13:00 Test Item Value Reference Range Interpretation Comments SARS-COV2/RT-PCR (test Negative Not Detected, Negative, code = 3903864) See external report for linked test SARS-COV-[address] [facility] RIANNA (test code = 3936162) Negative result for this test determines that [...] of the Act.Fact Sheet for Healthcare Prov iders:https://www.[employer]/sites/default/files/product/documents/Fact_Sheet_HC _Kcpztjssx_Dvpz_BXUZ-JnB-5.pdfFact Sheet for Healthcare Patients:https://www.[employer]/sites/default/files/product/docume nts/Ozft_Wungy_Bfmzufqq_Iwxi_FJNG-JwW-4.pdfPerforming Laboratory:[facility], [place] [address]Mzvmwh Differential 2021-01-17 09:59:00 Test Item Value Reference [...] = 3438) NETTIE (test code = NETTIE) Chip Silo Tender ID - Margarita OverholtUser comments: Slide comments: Lab Interpretation (test Abnormal code = 81142-1) [facility] W/PLT COUNT & AUTO [id number] 09:59:00 Test Item Value Reference Range Interpretation [...] CONCENTRATION Increased (CELLAVISION)(BEAKER) (test code = 3438) Chip Silo Tender STEVE Avila OverholtUser comments: Slide comments:[id number] 07:02:00 Test Item Value Reference Range Interpretation Comments Magnesium (test code = 2.0 mg/dL 1.6-2.6 67750-9) NETTIE (test code = NETTIE) Chip Silo Tender ID Aida Wade Lab Interpretation (test Normal code = 89859-4) [facility] CenterPhosphorus2021-08-26 07:02:00 Test Item Value Reference Range Interpretation Comments Phosphorus (test code = 3.1 mg/dL 2.3-4.7 2777-1) NETTIE (test code = NETTIE) Chip Silo Tender ID - BEN Wade Lab Interpretation (test Normal code = 95467-4) [facility] CenterBASIC METABOLIC [id number] 07:02:00 Test Item Value Reference Range Interpretation [...] S NOT APPLICABLE FOR DIALYSIS PATIEN TS. Chip Silo Tender ID - BEN [id number] 07:02:00 Test Item Value Reference Range Interpretation Comments MAGNESIUM (BEAKER) (test code = 2.0 mg/dL 1.6-2.6 627) Chip Silo Tender ID - BEN [id number] 07:02:00 Test Item Value Reference Range Interpretation Comments PHOSPHORUS (BEAKER) (test code = 3.1 mg/dL 2.3-4.7 604) Chip Silo Tender ID - BEN MPOCT-GLUCOSE [id number] 05:38:00 Test Item Value Reference Range Interpretation Comments POC-GLUCOSE METER 155 mg/dL 70-110 H : TESTED A T [facility] 6720 (BEAKER) (test code = [facility], 1538) [address]: Chip Silo Tender/Techni marielos ID = [id number] for DAR GARVINJAVI POCT-GLUCOSE [id number] 00:31:00 Test Item Value Reference Range Interpretation Comments POC-GLUCOSE METER 130 mg/dL 70-110 H : TESTED A T [facility] 6720 (BEAKER) (test code = [facility], 1538) [address]: Chip Silo Tender/Techni marielos ID = [id number] for BECKY NARINDERDESIRAE DARJAVI CTA [id number] 18:36:00Interface, External Ris In - 01/17/2021 12:20 PM CDTAddendum BeginsREPORT STATUS:A 3-D reconstructions were added to PACS after the report was finalized. These do not significantlyalter the interpretation. Signed: Opal Carrillo Verified Date/Time: 01/17/2021 12:18:02 Addendum EndsFINAL REPORT [...] Signed: Opal Crow Verified Date/Time: 01/16/2021 18:36:53 [facility] [id number] 18:33:00 Test Item Value Reference Range Interpretation Comments POC-GLUCOSE METER 91 mg/dL 70-110 : TESTED A T [facility] 6720 (BEAKER) (test code = JOAN Haddad [facility], 1538) [address]: Chip Silo Tender/Techni marielos ID = [id number] for Lucía Guajardo POCT-GLUCOSE [id number] 12:07:00 Test Item Value Reference Range Interpretation Comments POC-GLUCOSE METER 131 mg/dL 70-110 H : TESTED A T [facility] 6720 (BEAKER) (test code [facility], = 1538) [address]: Chip Silo Tender/Techni marielos ID = [id number] for JUAN ANTONIO TOLBERT POCT-GLUCOSE [id number] 07:31:00 Test Item Value Reference Range Interpretation Comments POC-GLUCOSE METER 129 mg/dL 70-110 H : TESTED A T [facility] 6720 (BEAKER) (test code = [facility] Boo [facility], 1538) [address]: Chip Silo Tender/Techni marielos ID = [id number] for DE NNIS, PREETI BASIC METABOLIC [id number] 05:07:00 Test Item Value Reference Range Interpretation [...] S NOT APPLICABLE FOR DIALYSIS PATIEN TS. Chip Silo Tender ID - EYAD [id number] 05:07:00 Test Item Value Reference Range Interpretation Comments MAGNESIUM (BEAKER) (test code = 2.0 mg/dL 1.6-2.6 627) Chip Silo Tender ID - EYAD [id number] 05:07:00 Test Item Value Reference Range Interpretation Comments PHOSPHORUS (BEAKER) (test code = 3.3 mg/dL 2.3-4.7 604) Chip Silo Tender ID Aida CASTANO LCBC W/PLT COUNT & AUTO [id number] 04:53:00 Test Item Value Reference Range Interpretation [...] PERCENT (BEAKER) (test code = 2801) POCT-GLUCOSE [id number] 00:23:00 Test Item Value Reference Range Interpretation Comments POC-GLUCOSE METER 108 mg/dL 70-110 : TESTED A T [facility] 6720 (BEAKER) (test code = [facility], 1538) [address]: Chip Silo Tender/Techni marielos ID = [id number] for DE NNIS, PREETI POCT-GLUCOSE [id number] 18:04:00 Test Item Value Reference Range Interpretation Comments POC-GLUCOSE METER 125 mg/dL 70-110 H : TESTED A T [facility] 6720 (BEAKER) (test code [facility], = 1538) 25[address]: Chip Silo Tender/Techni marielos ID = [id number] for TSEG GAI, TSIGHEREDA POCT-GLUCOSE [id number] 12:25:00 Test Item Value Reference Range Interpretation Comments POC-GLUCOSE METER 107 mg/dL 70-110 : TESTED A T [facility] 6720 (BEAKER) (test code [facility], = 1538) 25055: Chip Silo Tender/Techni marielos ID = [id number] for TSEG GAI, TSIGHEREDA BASIC METABOLIC [id number] 07:39:00 Test Item Value Reference Range Interpretation [...] S NOT APPLICABLE FOR DIALYSIS PATIEN TS. Chip Silo Tender ID - PIFAVIOLA [id number] 07:39:00 Test Item Value Reference Range Interpretation Comments MAGNESIUM (BEAKER) (test code = 2.2 mg/dL 1.6-2.6 627) Chip Silo Tender ID - PIFAVIOLA [id number] 07:39:00 Test Item Value Reference Range Interpretation Comments PHOSPHORUS (BEAKER) (test code = 2.9 mg/dL 2.3-4.7 604) Chip Silo Tender ID - EYAD LPOCT-GLUCOSE [id number] 07:04:00 Test Item Value Reference Range Interpretation Comments POC-GLUCOSE METER 101 mg/dL 70-110 : TESTED A T [facility] 6720 (BEAKER) (test code = [facility] Boo [facility], 1538) [address]: Chip Silo Tender/Techni marielos ID = [id number] for DE NNIS, PREETI CBC W/PLT COUNT & AUTO [id number] 05:55:00 Test Item Value Reference Range Interpretation [...] PERCENT (BEAKER) (test code = 2801) POCT-GLUCOSE [id number] 00:44:00 Test Item Value Reference Range Interpretation Comments POC-GLUCOSE METER 94 mg/dL 70-110 : TESTED A T [facility] 6720 (BEAKER) (test code = [facility], 153) [address]: Chip Silo Tender/Techni marielos ID = [id number] for DENN IS, PREETI POCT-GLUCOSE [id number] 18:37:00 Test Item Value Reference Range Interpretation Comments POC-GLUCOSE METER 95 mg/dL 70-110 : TESTED A T [facility] 6720 (BEAKER) (test code = [facility], 153) [address]: Chip Silo Tender/Techni marielos ID = [id number] for SANC HEZ, FRANSISCO SPUTUM CULTURE + GRAM [id number] 16:16:00 Test Item Value Reference Range Interpretation Comments CULTURE (BEAKER) (test SALMONELLA A 1+ Sa lmonella code = 1095) ENTERICA SSP enterica ssp ENTERICA entericaSent to [facility] spec[facility] and serotyping Ampicillin (test code [...] >25 epithelial (BEAKER) (test code = cells 994913) GRAM STAIN RESULT >25 epithelial (BEAKER) (test code = cells 050938) GRAM STAIN RESULT 1+ gram negative (BEAKER) (test code = rods 310991) GRAM STAIN RESULT <1+ gram (BEAKER) (test code = positive cocci 091772) in pairs 2+ Normal respiratory anjel [id number] 16:06:00 Test Item Value Reference Range Interpretation Comments Sodium (test code = 137 meq/L 573-976 5227-2) NETTIE (test code = NETTIE) Chip Silo Tender ID - ADMIN Lab Interpretation (test Normal code = 21323-7) [facility]00 Test Item Value Reference Range Interpretation Comments SODIUM (BEAKER) (test code = 381) 137 meq/L 136-145 Chip Silo Tender ID - ADMINPOCT-GLUCOSE [id number] 11:46:00 Test Item Value Reference Range Interpretation Comments POC-GLUCOSE METER 113 mg/dL 70-110 H : TESTED A T [facility] 6720 (BEAKER) (test code = JOAN ACOSTA, 1538) 41912: Chip Silo Tender/Techni marielos ID = [id number] for SA FRANCESCA FRANSISCO POCT-GLUCOSE [id number] 05:56:00 Test Item Value Reference Range Interpretation Comments POC-GLUCOSE METER 96 mg/dL 70-110 : TESTED A T [facility] 6720 (BEAKER) (test code = JOAN Boo [facility], 1538) 36891: Chip Silo Tender/Techni marielos ID = [id number] for BOLA ESTRADA BASIC METABOLIC [id number] 05:32:00 Test Item Value Reference Range Interpretation [...] S NOT APPLICABLE FOR DIALYSIS PATIEN TS. Chip Silo Tender ID - [id number] 05:32:00 Test Item Value Reference Range Interpretation Comments MAGNESIUM (BEAKER) (test code = 2.2 mg/dL 1.6-2.6 627) Chip Silo Tender ID - [id number] 05:32:00 Test Item Value Reference Range Interpretation Comments PHOSPHORUS (BEAKER) (test code = 3.5 mg/dL 2.3-4.7 604) Chip Silo Tender ID - DBCBC W/PLT COUNT & AUTO [id number] 05:06:00 Test Item Value Reference Range Interpretation [...] PERCENT (BEAKER) (test code = 2801) POCT-GLUCOSE [id number] 00:03:00 Test Item Value Reference Range Interpretation Comments POC-GLUCOSE METER 90 mg/dL 70-110 : TESTED A T [facility] 6720 (BEAKER) (test code = [place], 1538) 534[address]: Chip Silo Tender/Techni marielos ID = [id number] for BOLA ESTRADA POCT-GLUCOSE [id number] 16:51:00 Test Item Value Reference Range Interpretation Comments POC-GLUCOSE METER 101 mg/dL 70-110 : TESTED A T [facility] 6720 (BEAKER) (test code = [facility], 1538) 48028: Chip Silo Tender/Techni marielos ID = [id number] for An Colleen diaz Type and screen, [id number] 16:09:00 Test Item Value Reference Range Interpretation Comments ABO/RH AUTOMATED (BEAKER) (test B POSITIVE code = 2260) Ab Scrn (test code = 890-4) NEGATIVE [facility] 15:25:00 Test Item Value Reference Range Interpretation Comments SODIUM (BEAKER) (test code = 381) 137 meq/L 136-145 Chip Silo Tender ID - DBPOCT-GLUCOSE [id number] 12:21:00 Test Item Value Reference Range Interpretation Comments POC-GLUCOSE METER 107 mg/dL 70-110 : TESTED A T [facility] 6720 (BEAKER) (test code = [facility], 1538) 74443: Chip Silo Tender/Techni marielos ID = [id number] for An Shandra diaza POCT-GLUCOSE [id number] 05:31:00 Test Item Value Reference Range Interpretation Comments POC-GLUCOSE METER 103 mg/dL 70-110 : TESTED A T [facility] 6720 (BEAKER) (test code = [facility], 1538) 81436: Chip Silo Tender/Techni marielos ID = [id number] for BECKY NARINDERDESIRAE JACINTAAlanna BASIC METABOLIC [id number] 05:20:00 Test Item Value Reference Range Interpretation [...] S NOT APPLICABLE FOR DIALYSIS PATIEN TS. Chip Silo Tender ID - CHRISTINA [id number] 05:20:00 Test Item Value Reference Range Interpretation Comments MAGNESIUM (BEAKER) (test code = 2.1 mg/dL 1.6-2.6 627) Chip Silo Tender ID - CHRISTINA [id number] 05:20:00 Test Item Value Reference Range Interpretation Comments PHOSPHORUS (BEAKER) (test code = 2.9 mg/dL 2.3-4.7 604) Chip Silo Tender ID - CHRISTINA WCBC W/PLT COUNT & AUTO [id number] 04:44:00 Test Item Value Reference Range Interpretation [...] PERCENT (BEAKER) (test code = 2801) POCT-GLUCOSE [id number] 23:57:00 Test Item Value Reference Range Interpretation Comments POC-GLUCOSE METER 125 mg/dL 70-110 H : TESTED A T [facility] 6720 (BEAKER) (test code = [facility], 1538) 51627: Chip Silo Tender/Techni marielos ID = [id number] for BOLA GARVIN POCT-GLUCOSE [id number] 17:26:00 Test Item Value Reference Range Interpretation Comments POC-GLUCOSE METER 134 mg/dL 70-110 H : TESTED A T [facility] 6720 (BEAKER) (test code = [facility], 1538) 99676: Chip Silo Tender/Techni marielos ID = [id number] for An Colleen diaz Blood Culture - Routine (Left Venipuncture)2021-01-12 16:00:00 Test Item Value Reference Range Interpretation Comments Result (test code = No growth in 5 days 6463-4) [facility] [id number] 16:00:00 Test Item Value Reference Range Interpretation Comments CULTURE (BEAKER) (test No growth in 5 days code = 1095) BLOOD [id number] 16:00:00 Test Item Value Reference Range Interpretation Comments CULTURE (BEAKER) (test No growth in 5 days code = 1095) Vancomycin level, [id number] 14:11:00 Test Item Value Reference Range Interpretation Comments Vancomycin Tr (test code = 19.6 ug/mL 10-20 4092-3) NETTIE (test code = NETTIE) Chip Silo Tender ID - BEN M Lab Interpretation (test Normal code = 89057-3) [facility] CenterVANCOMYCIN LEVEL, [id number] 14:11:00 Test Item Value Reference Range Interpretation Comments VANCOMYCIN TROUGH (BEAKER) (test 19.6 ug/mL 10.0-20.0 code = 522) Chip Silo Tender ID - BEN [id number] 14:07:00 Test Item Value Reference Range Interpretation Comments SODIUM (BEAKER) (test code = 381) 144 meq/L 136-145 Chip Silo Tender ID - BEN MPOCT-GLUCOSE [id number] 12:10:00 Test Item Value Reference Range Interpretation Comments POC-GLUCOSE METER 121 mg/dL 70-110 H : TESTED A T [facility] 6720 (BEAKER) (test code = JOAN Haddad [facility], 1538) 70143: Chip Silo Tender/Techni marielos ID = [id number] for An Colleen diaz CBC W/PLT COUNT & AUTO [id number] 10:58:00 Test Item Value Reference Range Interpretation [...] CONCENTRATION Adequate (CELLAVISION)(BEAKER) (test code = 3438) Chip Silo Tender ID - Anamaria Engel comments: Slide comments:POCT-GLUCOSE METER 2021-01-12 08:26:00 Test Item Value Reference Range Interpretation Comments POC-GLUCOSE METER 123 mg/dL 70-110 H : TESTED Alanna T [facility] 6720 (BEAKER) (test code = [facility] Boo [facility], 1538) 28771: Chip Silo Tender/Techni marielos ID = [id number] for An Colleen diaz BASIC METABOLIC [id number] 06:40:00 Test Item Value Reference Range Interpretation [...] S NOT APPLICABLE FOR DIALYSIS PATIEN TS. Chip Silo Tender ID - BEN [id number] 06:40:00 Test Item Value Reference Range Interpretation Comments MAGNESIUM (BEAKER) (test code = 2.1 mg/dL 1.6-2.6 627) Chip Silo Tender ID - BEN [id number] 06:40:00 Test Item Value Reference Range Interpretation Comments PHOSPHORUS (BEAKER) (test code = 3.0 mg/dL 2.3-4.7 604) Chip Silo Tender ID - BEN MPOCT-GLUCOSE [id number] 06:08:00 Test Item Value Reference Range Interpretation Comments POC-GLUCOSE METER 133 mg/dL 70-110 H : TESTED A T [facility] 6720 (BEAKER) (test code = [facility], 1538) 39358: Chip Silo Tender/Techni marielos ID = [id number] for DE NNIS, PREETI POCT-GLUCOSE [id number] 23:53:00 Test Item Value Reference Range Interpretation Comments POC-GLUCOSE METER 110 mg/dL 70-110 : TESTED A T [facility] 6720 (BEAKER) (test code = [facility], 1538) 33146: Chip Silo Tender/Techni marielos ID = [id number] for DE NNIS, PREETI ANG, INSERTION G TUBE, W/ [id number] 17:48:00 [facility] 1945 Sex: FFINALREPORT History: [...] MDReport Verified Date/Time: 01/11/2021 17:48:55 Reading Location: [place] [address] Angio Body Reading Room IR G-Tube Insertion [...] Lucaseport Verified Date/Time: 01/11/2021 17:48:55 Reading Location: [place] [address] Angio Body Reading Room [facility] [id number] 12:29:00 Test Item Value Reference Range Interpretation Comments POC-GLUCOSE METER 106 mg/dL 70-110 : TESTED A T [facility] 6720 (BEAKER) (test code [facility], = 1538) 09819: Chip Silo Tender/Techni marielos ID = [id number] for JUAN ANTONIO TOLBERT [id number] 10:43:00 Test Item Value Reference Interpretation Comments Range Protime (test code = 13.6 See_Comment [Autom ated 5902-2) message] The system which generated this result transmitted reference range : 11.9 - 14.2 seconds. The reference range was not used to interpret this result as normal/abnormal . INR (test code = 1.06 See_Comment [Automated 5191-6) message] The system which generated this result transmitted reference range : <=5.90. The reference range was not used to interpret this result as normal/abnormal . PTT (test code = 28.5 See_Comment [Automated 45198-1) message] The system which generated this result [...] valves. Lab Interpretation Normal (test code = 51109-2) [facility] CenterPT/[id number] 10:43:00 Test Item Value Reference Range Interpretation [...] mechanical heart valves.CBC W/PLT COUNT & AUTO [id number] 07:27:00 Test Item Value Reference Range Interpretation [...] CONCENTRATION Adequate (CELLAVISION)(BEAKER) (test code = 3438) Chip Silo Tender ID Aida Avila OverholtUser comments: Slide comments:POCT-GLUCOSE METER 2021-01-11 06:34:00 Test Item Value Reference Range Interpretation Comments POC-GLUCOSE METER 132 mg/dL 70-110 H : TESTED A T [facility] 6720 (BEAKER) (test code = [place], 1538) 20581: Chip Silo Tender/Techni marielos ID = [id number] for DE NNIS, PREETI BASIC METABOLIC [id number] 06:32:00 Test Item Value Reference Range Interpretation [...] S NOT APPLICABLE FOR DIALYSIS PATIEN TS. Chip Silo Tender ID - EYAD [id number] 06:32:00 Test Item Value Reference Range Interpretation Comments MAGNESIUM (BEAKER) (test code = 2.5 mg/dL 1.6-2.6 627) Chip Silo Tender ID Aida CASTANO [id number] 06:32:00 Test Item Value Reference Range Interpretation Comments PHOSPHORUS (BEAKER) (test code = 2.5 mg/dL 2.3-4.7 604) Chip Silo Tender ID - EYAD [id number] 06:32:00 Test Item Value Reference Range Interpretation Comments SODIUM (BEAKER) (test code = 381) 151 meq/L 136-145 H POCT-GLUCOSE [id number] 00:17:00 Test Item Value Reference Range Interpretation Comments POC-GLUCOSE METER 120 mg/dL 70-110 H : TESTED A T [facility] 6720 (BEREGINA) (test code = [place], 1538) 34465: Chip Silo Tender/Techni marielos ID = [id number] for DE NNIS, PREETI Clostridium difficile GDH [id number] 13:14:00 Test Item Value Reference Range Interpretation Comments C. Difficle Toxin Negative Negative (test code = 5061378359) C. Difficile GDH Negative Negative No indicati on of Antigen (test code = Clostri dium 8949808753) difficile infection and n o colonization. Discontinue enteric isolati on and therapy. NETTIE (test code = Testing performed NETTIE) by [employer] Rapid Cassette Assay. For GDH, published sensitivity of the assay is 98.7% compared to cytotoxicity testing. For Toxin AB, published sensitivity is 87.8% and specificity 99.4% compared to cytotoxicity testing.Verificati on of kit performance was done by the [facility] Microbiology Lab prior to clinical use. Lab Interpretation Normal (test code = 71368-2) [facility] CenterC. DIFFICILE GDH [id number] 13:14:00 Test Item Value Reference Range Interpretation Comments CDT TOXIN (test code Negative Negative = 1190810394) CDT GDH ANTIGEN (test Negative Negative No ind ication of code = 7969194537) Clostridi um difficile infection and n o colonization. Discontinue ent barry isolation and t herapy. Testing performed by Ale[employer] Rapid Cassette Assay. For GDH, published sensitivity of the assay is 98.7% compared to cytotoxicity testing. For Toxin AB, published sensitivity is 87.8% and specificity 99.4% compared to cytotoxicity testing.Verification of kit performance was done by the [facility] MicrobiologyLab prior to clinical use.BASIC METABOLIC [id number] 09:56:00 Test Item Value Reference Range Interpretation [...] S NOT APPLICABLE FOR DIALYSIS PATIEN TS. Chip Silo Tender ID - [id number] 09:56:00 Test Item Value Reference Range Interpretation Comments MAGNESIUM (BEAKER) (test code = 2.3 mg/dL 1.6-2.6 627) Chip Silo Tender ID - [id number] 09:56:00 Test Item Value Reference Range Interpretation Comments PHOSPHORUS (BEAKER) (test code = 2.7 mg/dL 2.3-4.7 604) Chip Silo Tender ID - ABNERVANCOMYCIN LEVEL, [id number] 09:05:00 Test Item Value Reference Range Interpretation Comments VANCOMYCIN TROUGH (BEAKER) (test 26.2 ug/mL 10.0-20.0 H code = 522) Chip Silo Tender ID - LALOSONCBC W/PLT COUNT & AUTO [id number] 08:45:00 Test Item Value Reference Range Interpretation [...] PERCENT (BEAKER) (test code = 2801) POCT-GLUCOSE [id number] 06:14:00 Test Item Value Reference Range Interpretation Comments POC-GLUCOSE METER 128 mg/dL 70-110 H : Notified RN/MD: (BEAKER) (test code = TESTED AT [facility] 6720 7236) [facility], [address]56: Chip Silo Tender/Techni marielos ID = [id number] for DO VE, CHEKARA POCT-GLUCOSE [id number] 23:35:00 Test Item Value Reference Range Interpretation Comments POC-GLUCOSE METER 120 mg/dL 70-110 H : Notified RN/MD: (NAZARIO) (test code = TESTED AT [facility] 67 1538) [facility], 47029: Chip Silo Tender/Techni marielos ID = [id number] for DO VE, CHEKARA SARS-COV2/RT-PCR ([facility])2021-01-09 23:13:00 Test Item Value Reference Range Interpretation Comments SARS-COV2/RT-PCR (test Negative Not Detected, Negative, code = 0572767) See external report for linked test SARS-COV-[address] [facility] RIANNA (test code = 8435934) Negative result for this test determines that [...] of the Act.Fact Sheet for Healthcare Prov iders:https://www.[employer]/sites/default/files/product/documents/Fact_Sheet_HC _Gyophtfyg_Ynyq_EJEE-RcZ-8.pdfFact Sheet for Healthcare Patients:https://www.[employer]/sites/default/files/product/docume nts/Fybi_Byfea_Bsvhqtdw_Iocd_KXCR-PeI-8.pdfPerforming Laboratory:[facility], [place] [id number] 16:18:00 Test Item Value Reference Range Interpretation Comments SODIUM (BEAKER) (test code = 381) 149 meq/L 136-145 H Chip Silo Tender ID - BSPOCT-GLUCOSE [id number] 16:10:00 Test Item Value Reference Range Interpretation Comments POC-GLUCOSE METER 95 mg/dL 70-110 : TESTED A T [facility] 6720 (BEAKER) (test code = JOAN Haddad [facility], 1538) 25682: Chip Silo Tender/Techni marielos ID = [id number] for CERV ANTEFany, MICHELLE BASIC METABOLIC [id number] 03:37:00 Test Item Value Reference Range Interpretation [...] S NOT APPLICABLE FOR DIALYSIS PATIEN TS. Chip Silo Tender ID - CHRISTINA [id number] 03:37:00 Test Item Value Reference Range Interpretation Comments MAGNESIUM (BEAKER) (test code = 2.1 mg/dL 1.6-2.6 627) Chip Silo Tender ID - CHRISTINA [id number] 03:37:00 Test Item Value Reference Range Interpretation Comments PHOSPHORUS (BEAKER) (test code = 2.4 mg/dL 2.3-4.7 604) Chip Silo Tender ID - CHRISTINA WCBC W/PLT COUNT & AUTO [id number] 03:20:00 Test Item Value Reference Range Interpretation [...] GRANULOCYTES-RELATIVE PERCENT (BEAKER) (test code = 2801) [id number] 17:53:00 Test Item Value Reference Range Interpretation Comments SODIUM (BEAKER) (test code = 381) 145 meq/L 136-145 Chip Silo Tender ID - corby eRAD, CHEST, 1 VIEW, NON [id number] 14:24:00Reason for exam:->ptxShould this be performed at the bedside?->Yes [facility] : 1945 Sex: FFINALREPORT CLINICAL HISTORY: ptx TECHNIQUE: 1 view of the chest. COMPARISON: 01/07/2021 IMPRESSION: A feeding tube again extends below the diaphragm. As before, there is no evidence forpneumothorax. Left basilar atelectasis is again seen. There is no significant appearing pleural fluid or cardiomegaly. Signed: Griselda Mcconnell MDReport Verified Date/Time: 01/08/2021 14:24:27 Reading Location: [facility] Radiology Reading Room URINALYSIS W/ REFLEX URINE [id number] 13:12:00 Test Item Value Reference Range Interpretation [...] = 1521) SOURCE(BEAKER) (test code = 2795) Chip Silo Tender ID - [auto]Chip Silo Tender ID - tech(CELLAVISION MANUAL DIFF)2021-01-08 09:19:00 Test [...] CONCENTRATION Adequate (CELLAVISION)(BEAKER) (test code = 3438) Chip Silo Tender ID - Louise Ramires comments: Slide comments:Transcranial Doppler Complete (TCD)2021-01-08 08:52:55Shantel, Barry Allen MD 01/09/2021 1:31 [facility]- Transcranial Doppler Report Date: 01/07/21 Referring physician: MD Juan Indication: aSAH Maximal estimated mean blood flowvelocities (cm / sec): R EC ICA 43 L EC ICA 28 R Ophthalmic L Ophthalmic R MCA 42 R PABLO 18 R ICA R ABSTRACT MANAGER 31 L MCA 47 L PABLO 42 L ICA L ABSTRACT MANAGER 31 R vertebral 27 L vertebral 44 Basilar 30 [place] (R MCA:R ECICA) 0.97 [place] (L MCA:L ECICA) 1.85 Post bleed day #: 11 Velocity Range Thompson Elevated velocity= 90 - 119 cm/sec Mild vasospasm = 120 - 159 cm/sec Moderate vasospasm = 160 - 199 cm/sec Severe vasospasm = ? 200 cm/sec Interpretation:Velocities within normal ranges. No concern for vasospasm.Clinical Correlation is recommended. I interpreted procedure Chele Farah Professor of [facility]Nav[facility] W/PLT COUNT & AUTO [id number] 03:57:00 Test Item Value Reference Range Interpretation [...] (BEAKER) (test code = 413) BASIC METABOLIC [id number] 03:43:00 Test Item Value Reference Range Interpretation [...] S NOT APPLICABLE FOR DIALYSIS PATIEN TS. Chip Silo Tender ID - BEN [id number] 03:43:00 Test Item Value Reference Range Interpretation Comments MAGNESIUM (BEAKER) (test code = 2.3 mg/dL 1.6-2.6 627) Chip Silo Tender ID - BEN [id number] 03:43:00 Test Item Value Reference Range Interpretation Comments PHOSPHORUS (BEAKER) (test code = 3.3 mg/dL 2.3-4.7 604) Chip Silo Tender ID - BEN YJfpyuuvlxmiwh8784-48-82 21:42:00 Test Item Value Reference Range Interpretation Comments Procalcitonin (test code = 0.32 ng/mL <0.05 H 20928-5) NETTIE (test code = NETTIE) SEPSIS RISK (ng/mL)Low: 0.05-0.50Intermedia te: 0.51-2.00High: >=2.01 Lab Interpretation (test Abnormal code = 50825-5) [facility] [id number] 21:42:00 Test Item Value Reference Range Interpretation Comments PROCALCITONIN (BEAKER) (test code 0.32 ng/mL <0.05 H = 3036) SEPSIS RISK (ng/mL)Low: 0.05-0.50Intermediate: 0.51-2.00High: >=2.01MAGNESIUM 2021-01-07 15:43:00 Test Item Value Reference Range Interpretation Comments MAGNESIUM (BEAKER) (test code = 2.1 mg/dL 1.6-2.6 627) Chip Silo Tender ID - [id number] 15:43:00 Test Item Value Reference Range Interpretation Comments PHOSPHORUS (BEAKER) (test code = 3.0 mg/dL 2.3-4.7 604) Chip Silo Tender ID - CORAComprehensive metabolic [id number] 14:31:00 Test Item Value Reference Range Interpretation Comments Protein, Total (test 6.3 See_Comment [Autom ated code = 2885-2) message] The system which generated this result transmit alexandre reference range : 6.0 - 8.3 gm/dL . The reference range was not u sed to interpret th is result as normal/abnormal . Albumin (test code = 3.5 g/dL 3.5-5 93493-8) Alkaline Phosphatase 292 U/L 40-150 H (test code = 6768-6) Total Bilirubin (test 0.4 mg/dL 0.2-1.2 code = 1974-) Sodium (test code = 143 meq/L 428-062 5144-2) Potassium (test code 3.4 meq/L 3.5-5.1 L = 2823-3) Chloride (test code = 108 meq/L 98-107 H 2075-0) CO2 (test code = 24 meq/L 22-29 8-9) BUN (test code = 24 mg/dL 7-21 H 3094-0) Creatinine (test code 0.62 mg/dL 0.57-1.25 = 2160-0) Glucose (test code = 131 mg/dL 70-105 H 2345-7) Calcium (test code = 8.0 mg/dL 8.4-10.2 L 23799-6) AST (test code = 71 U/L 5-34 H 1920-8) ALT (test code = 72 U/L 6-55 H 1742-6) EGFR (test code = 94 mL/min/1.73 [place] [address]-1) NOT ACCURATE CREATININE CLEARANCE IN PREDICTING GLOMERULAR FILTRATION RATE . ESTIMATED GFR I S NOT APPLICABLE FOR DIALYSIS PATIEN NETTIE (test code = NETTIE) Chip Silo Tender ID - MAY Lab Interpretation Abnormal (test code = 66408-2) [facility] CenterHepatic function [id number] 14:31:00 Test Item Value Reference Range Interpretation Comments Protein, Total (test 6.3 See_Comment [Autom ated code = 2885-2) message] The system which generated this result transmit alexandre reference range : 6.0 - 8.3 gm/dL . The reference range was not u sed to interpret th is result as normal/abnormal . Albumin (test code = 3.5 g/dL 3.5-5 22220-6) Total Bilirubin (test 0.4 mg/dL 0.2-1.2 code = 2) Bilirubin, Direct 0.2 mg/dL 0.1-0.5 (test code = 1968-7) Alkaline Phosphatase 292 U/L 40-150 H (test code = 6768-6) AST (test code = 71 U/L 5-34 H 1920-8) ALT (test code = 72 U/L 6-55 H 1742-6) NETTIE (test code = NETTIE) Chip Silo Tender ID - CORA Lab Interpretation Abnormal (test code = 28738-1) [facility] CenterCOMPREHENSIVE METABOLIC [id number] 14:31:00 Test Item Value Reference Range Interpretation [...] S NOT APPLICABLE FOR DIALYSIS PATIEN TS. Chip Silo Tender ID - CORAHEPATIC FUNCTION [id number] 14:31:00 Test Item Value Reference Range Interpretation [...] code = 72 U/L 6-55 H 347) Chip Silo Tender ID - CORABlood gas, [id number] 13:59:00 Test Item Value Reference Range Interpretation Comments pH, Arterial (test code 7.46 7.35-7.45 H = 2744-1) pCO2, Arterial (test 37 See_Comment [Autom ated message] code = 2019-8) The system [employer] generated this result transmit alexandre reference range : 35 - 45 mm Hg. The reference range was not used to interpret this result as normal/abnormal . pO2, Arterial (test 91 See_Comment H [Automa alexandre message] code = 2703-7) The system [employer] generated this result transmit alexandre reference range [...] 21 Lab Interpretation Abnormal (test code = 88598-0) [facility] CenterBLOOD GAS, [id number] 13:59:00 Test Item Value Reference Range Interpretation [...] code = 1819) 21.0 CT, BRAIN, WITHOUT [id number] 13:54:00Unlisted Reason for Exam - Click Yes and Enter Reason Below->YesUnlisted Reason for Exam->SAH worsen exam [facility] : 1945 Sex: FFINALREPORT [...] Opal Carrillo MDRephiwot Verified Date/Time: 01/07/2021 13:54:14 [facility], [id number] 13:27:00Reason for exam:->Subarachnoid hemorrhage [facility] : 1945 Sex: FFINALREPORT DATE OF PROCEDURE: 01/03/2021 SURGEON: Ava Whitt MD BAKERY TECHNICIAN: Miryam Gonzalez MD; Sancho Martinez MD PREOPERATIVE DIAGNOSIS: 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 Using coaxial technique, a 5F Silenseed catheter was advanced through the right subclavian [...] MDReport Verified Date/Time: 01/07/2021 13:27:18 Reading 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 [place] Embolization [id number] 13:27:00Interface, External Ris In - 01/07/2021 1:29 PM CDTFINAL REPORT DATE OF PROCEDURE: 01/03/2021 SURGEON: Ava Whitt MD BAKERY TECHNICIAN: Miryam Gonzalez MD; Sancho Martinez MD PREOPERATIVE DIAGNOSIS: Right middle cerebral artery aneurysm status post clipping POST OPERATIVE DIAGNOSIS: Right middle cerebral artery aneurysm status post clipping PROCEDURE: Diagnostic cerebral angiogram and intra-arterial infusion of verapamil ANESTHESIA: General endotracheal anesthesia ESTIMATED BLOOD LOSS: Minimal COMPLICATIONS: None Devices Employed: 5F slender gcigqa6J Patel catheterTerumo Conway WirePrelude Band INDICATIONS: The patient is a [...] MDReport Verified Date/Time: 01/07/2021 13:27:18 Reading Location: [facility] B1 Y026 NeuroAngio Reading 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 Y026 NeuroAngio Reading [facility] CenterRAD, CHEST, 1 VIEW, NON [id number] 12:33:00Reason for exam:->leukocytosisShould this be performed at the bedside?->Yes [facility] 1945 Sex: FFINALREPORT CLINICAL HISTORY: leukocytosis TECHNIQUE: 1 view of the chest. COMPARISON: 01/04/2021 IMPRESSION: The ETT has been removed. Feeding tube remains. There is patchy left lung base airspace opacity with a trace left effusion. The right lung remains well-aerated. The cardiomediastinal silhouette is magnified by technique. Signed: Griselda Mcconnell [facility]PITALeport Verified Date/Time: 01/07/2021 12:33:30 Reading Location: [facility] Radiology Reading Room EEG AWAKE AND [id number] 12:32:00For STAT EEG- after 5 PM weekdays, weekends and holidays, page the on-call EEG TechReason for exam:->c/f subclinical sz [facility] : 1945 Sex: FAddendum BeginsDate of EEG and EEG report was 01/07/2021, no 12/24/2020. Addendum EndsVIDEO EEG report for [facility] NAME: Sonu Arellano DATE OF EE12/24/2020 DATE OF REPORT: 12/24/2020 ACC: [id number] Start time: 12/24/2020@08:33 Stop time: 12/24/2020@08:54 ICD-10: R41.82, R56.9 CPT Code: 33916 HISTORY: 75yo female with PMH of hypertension, presenting with ICH and SAH 2/2 R MCA aneurysm. now s/p R pteronial craniotomy for R MCA bifurcation aneurysm and hematoma evacuation on 12/28 MEDICATIONS THAT COULD AFFECT THE EEG: Keppra, acetaminophen, dextrose, lovenox, apresoline, insulin, labetalol, loperamide, provigil, micardipine, nimodipine TECHNICAL SUMMARY: This is a [facility] digital Video-EEG recorded with 32 input channels [...] additional EEG recordings. Cirilo Mays M.D., HARPREET, FAAN, LARRY Professor of Neurology [facility] [employer] Director, [facility] Epilepsy Center Head, [facility] Neurophysiology Lab EEG AWAKE AND [id number] 12:29:00Interface, External Ris In - 01/07/2021 12:32 PM CDTAddendum BeginsDate of EEG and EEG report was 01/07/2021, no 12/24/2020. Addendum EndsVIDEO EEG report for [facility] NAME: Sonu Sarabia DATE OF EE12/24/2020 DATE OF REPORT: 12/24/2020 ACC: [id number] Start time: 12/24/2020@08:33 Stop time: 12/24/2020@08:54 ICD-10: R41.82, R56.9 CPT Code: 08238 HISTORY: 75yo female with PMH of hypertension, presenting with ICH and SAH 2/2 R MCA aneurysm. now s/p R pte ronial craniotomy for R MCA bifurcation aneurysm and hematoma evacuation on 12/28 MEDICATIONS THAT COULD AFFECT THE EEG: Keppra, acetaminophen, dextrose, lovenox, apresoline, insulin, labetalol, loperamide, provigil, micardipine, nimodipine TECHNICAL SUMMARY: This is a [facility] digital Video-EEG recorded with 32 input channels [...] M.D., FACSAAD, FAAN, LARRY Professor of Neurology [facility] Director, [facility] Epilepsy [place] Head, [facility] Neurophysiology Lab [facility] [id number] 11:46:00 Test Item Value Reference Range Interpretation Comments POC-GLUCOSE METER 107 mg/dL 70-110 : TESTED A T [facility] 6720 (BEAKER) (test code = [facility], 153) 72868: Chip Silo Tender/Techni marielos ID = [id number] for YESI MONTELONGO ANA POCT-GLUCOSE [id number] 05:41:00 Test Item Value Reference Range Interpretation Comments POC-GLUCOSE METER 131 mg/dL 70-110 H : TESTED A T [facility] 6720 (BEAKER) (test code = [facility], 153) 85636: Chip Silo Tender/Techni marielos ID = [id number] for Deysi Thompson BASIC METABOLIC [id number] 03:52:00 Test Item Value Reference Range Interpretation [...] S NOT APPLICABLE FOR DIALYSIS PATIEN TS. Chip Silo Tender ID - CHRISTINA [id number] 03:52:00 Test Item Value Reference Range Interpretation Comments MAGNESIUM (BEAKER) (test code = 2.2 mg/dL 1.6-2.6 627) Chip Silo Tender ID - CHRISTINA [id number] 03:52:00 Test Item Value Reference Range Interpretation Comments PHOSPHORUS (BEAKER) (test code = 2.6 mg/dL 2.3-4.7 604) Chip Silo Tender ID - CHRISTINA WCBC W/PLT COUNT & AUTO [id number] 03:41:00 Test Item Value Reference Range Interpretation [...] PERCENT (BEAKER) (test code = 2801) POCT-GLUCOSE [id number] 23:31:00 Test Item Value Reference Range Interpretation Comments POC-GLUCOSE METER 132 mg/dL 70-110 H : TESTED A T [facility] 6720 (BEAKER) (test code = [facility], 153) 05813: Chip Silo Tender/Techni marielos ID = [id number] for Deysi Thompson POCT-GLUCOSE [id number] 17:30:00 Test Item Value Reference Range Interpretation Comments POC-GLUCOSE METER 111 mg/dL 70-110 H : TESTED A T [facility] 6720 (BEAKER) (test code = [facility], 153) 02853: Chip Silo Tender/Techni marielos ID = [id number] for Elver Hilariosa [id number] 16:48:00 Test Item Value Reference Range Interpretation Comments SODIUM (BEAKER) (test code = 381) 142 meq/L 136-145 Chip Silo Tender ID - DBPOCT-GLUCOSE [id number] 11:59:00 Test Item Value Reference Range Interpretation Comments POC-GLUCOSE METER 110 mg/dL 70-110 : TESTED A T [facility] 6720 (BEAKER) (test code = JOAN Haddad [facility], 1538) 16067: Chip Silo Tender/Techni marielos ID = [id number] for Ar mstrong, [place] CT, BRAIN, WITHOUT [id number] 10:58:00Unlisted Reason for Exam - Click Yes and Enter Reason Below->YesUnlisted Reason for Exam->hydrocephal [facility] : 1945 Sex: FFINAL[address]PORT CT, [...] MDReport Verified Date/Time: 01/06/2021 10:58:27 Reading Location: [address] Neuro Reading Room CT, CTANGIO BRAIN 2021-01-06 10:58:00Unlisted Reason for Exam - Click Yes and Enter Reason Below- >YesUnlisted Reason for Exam->spasm [facility] CENTERName: SONU ARELLANO : 1945 Sex: FFINALREPORT [...] right cavernous ICA aneurysm. Signed: Ana Arreola Verified Date/Time: 01/06/2021 10:58:27 Reading Location: [address] Neuro Reading Room POCT-GLUCOSE METER 2021-01-06 06:42:00 Test Item Value Reference Range Interpretation Comments POC-GLUCOSE METER 123 mg/dL 70-110 H : TESTED A T [facility] 6720 (BEAKER) (test code = [place], 1538) 7[address]: Chip Silo Tender/Techni marielos ID = [id number] for DERRICK ELIAS BASIC METABOLIC [id number] 02:52:00 Test Item Value Reference Range Interpretation [...] S NOT APPLICABLE FOR DIALYSIS PATIEN TS. Chip Silo Tender ID - BEN [id number] 02:38:00 Test Item Value Reference Range Interpretation Comments MAGNESIUM (BEAKER) (test code = 2.0 mg/dL 1.6-2.6 627) Chip Silo Tender ID - BEN [id number] 02:38:00 Test Item Value Reference Range Interpretation Comments PHOSPHORUS (BEAKER) (test code = 3.0 mg/dL 2.3-4.7 604) Chip Silo Tender ID - BEN MBLOOD GAS, [id number] 02:21:00 Test Item Value Reference Range Interpretation [...] 1819) 36.0 CBC W/PLT COUNT & AUTO [id number] 02:19:00 Test Item Value Reference Range Interpretation [...] PERCENT (BEAKER) (test code = 2801) POCT-GLUCOSE [id number] 01:29:00 Test Item Value Reference Range Interpretation Comments POC-GLUCOSE METER 120 mg/dL 70-110 H : TESTED A T [facility] 6720 (BEAKER) (test code = [facility], 1538) 66555: Chip Silo Tender/Techni marielos ID = [id number] for DORIS DERRICK [id number] 21:28:00 Test Item Value Reference Range Interpretation Comments SODIUM (BEAKER) (test code = 381) 139 meq/L 136-145 Chip Silo Tender ID - DBPOCT-GLUCOSE [id number] 18:06:00 Test Item Value Reference Range Interpretation Comments POC-GLUCOSE METER 106 mg/dL 70-110 : TESTED A T [facility] 6720 (BEAKER) (test code = [facility], 1538) 55570: Chip Silo Tender/Techni marielos ID = [id number] for Yesi nova (pca2), Margarita POCT-GLUCOSE [id number] 12:14:00 Test Item Value Reference Range Interpretation Comments POC-GLUCOSE METER 109 mg/dL 70-110 : TESTED A T [facility] 6720 (BEAKER) (test code = [facility], 1538) 41071: Chip Silo Tender/Techni marielos ID = [id number] for Ro allynon (pca2), Margarita [id number] 09:02:00 Test Item Value Reference Range Interpretation Comments PROCALCITONIN (BEAKER) (test code = < ng/mL <0.05 7286) SEPSIS RISK (ng/mL)Low: 0.05-0.50Intermediate: 0.51-2.00High: >=2.01BASIC METABOLIC [id number] 06:15:00 Test Item Value Reference Range Interpretation [...] S NOT APPLICABLE FOR DIALYSIS PATIEN TS. Chip Silo Tender ID - BEN MPOCT-GLUCOSE [id number] 05:53:00 Test Item Value Reference Range Interpretation Comments POC-GLUCOSE METER 122 mg/dL 70-110 H : TESTED A T [facility] 6720 (BEAKER) (test code = [place], 1538) 7[address]: Chip Silo Tender/Techni marielos ID = [id number] for BEN FALL [id number] 05:53:00 Test Item Value Reference Range Interpretation Comments MAGNESIUM (BEAKER) (test code = 2.0 mg/dL 1.6-2.6 627) Chip Silo Tender ID - BEN [id number] 05:53:00 Test Item Value Reference Range Interpretation Comments PHOSPHORUS (BEAKER) (test code = 3.5 mg/dL 2.3-4.7 604) Chip Silo Tender ID - BEN MCBC W/PLT COUNT & AUTO [id number] 05:51:00 Test Item Value Reference Range Interpretation [...] (BEAKER) (test code = 2801) BLOOD GAS, [id number] 05:17:00 Test Item Value Reference Range Interpretation [...] (BEAKER) (test code = 1819) 40.0 POCT-GLUCOSE [id number] 00:24:00 Test Item Value Reference Range Interpretation Comments POC-GLUCOSE METER 117 mg/dL 70-110 H : TESTED A T [facility] 6720 (BEAKER) (test code = [facility], 1538) 79260: Chip Silo Tender/Techni marielos ID = [id number] for BEN FALL POCT-GLUCOSE [id number] 18:15:00 Test Item Value Reference Range Interpretation Comments POC-GLUCOSE METER 115 mg/dL 70-110 H : TESTED A T [facility] 6720 (BEAKER) (test code = [facility], 1538) 83841: Chip Silo Tender/Techni marielos ID = [id number] for Yesi nova (pca2)Margarita [id number] 18:10:00 Test Item Value Reference Range Interpretation Comments Potassium (test code = 3.2 meq/L 3.5-5.1 L 2823-3) NETTIE (test code = NETTIE) Chip Silo Tender ID - BS Lab Interpretation (test Abnormal code = 42645-6) [facility] Center[facility]OT[facility]SIUM2021-08-13 18:10:00 Test Item Value Reference Range Interpretation Comments POTASSIUM (BEAKER) (test code = 3.2 meq/L 3.5-5.1 L 379) Chip Silo Tender ID - [id number] 14:49:00 Test Item Value Reference Range Interpretation Comments SODIUM (BEAKER) (test code = 381) 141 meq/L 136-145 Chip Silo Tender ID - ADMINHemoglobin and [id number] 14:40:00 Test Item Value Reference Range Interpretation [...] = 4544-3) NETTIE (test code = NETTIE) Chip Silo Tender ID - [id number] Lab Interpretation Abnormal (test code = 14136-9) [facility] CenterHEMOGLOBIN AND [id number] 14:40:00 Test Item Value Reference Range Interpretation Comments HEMOGLOBIN (BEAKER) (test code = 7.6 GM/DL 11.2-15.7 L 410) HEMATOCRIT (BEAKER) (test code = 22.8 % 34.1-44.9 L 411) Chip Silo Tender ID - 6000POCT-GLUCOSE [id number] 11:57:00 Test Item Value Reference Range Interpretation Comments POC-GLUCOSE METER 90 mg/dL 70-110 : TESTED A T [facility] 6720 (BEAKER) (test code = [place], 1538) 51459: Chip Silo Tender/Techni marielos ID = [id number] for Moises terrazas (pca2)Margarita BLOOD [id number] 09:01:00 Test Item Value Reference Range Interpretation Comments CULTURE (BEAKER) (test No growth in 5 days code = 1095) BLOOD [id number] 09:01:00 Test Item Value Reference Range Interpretation [...] for exam:->IntubatedShould this be performed at the bedside?->Yes[facility]LL[facility] : 1945 Sex: FFINAL REPORT RAD, CHEST, 1 VIEW, NON DEPT INDICATION: Intubated COMPARISON: January 03, 2021 FINDINGS: Portable frontal view of the chest. IMPRESSION: Support Lines: Stable. Lungs and pleura: No new consolidation. Left basilar subsegmental atelectasis. No pneumothorax.Heart and mediastinum: Stable contours. Additional findings: None. Signed: JR Mcmanus Robert MDReport Verified Date/Time: 01/04/2021 08:04:17 Reading Location: [facility] Radiology Reading Room CBC W/PLT COUNT & AUTO [id number] 05:10:00 Test Item Value Reference Range Interpretation [...] (BEAKER) (test code = 2801) BASIC METABOLIC [id number] 05:01:00 Test Item Value Reference Range Interpretation [...] S NOT APPLICABLE FOR DIALYSIS PATIEN TS. Chip Silo Tender ID - [id number] 04:58:00 Test Item Value Reference Range Interpretation Comments MAGNESIUM (BEAKER) (test code = 2.2 mg/dL 1.6-2.6 627) Chip Silo Tender ID - [id number] 04:58:00 Test Item Value Reference Range Interpretation Comments PHOSPHORUS (BEAKER) (test code = 3.8 mg/dL 2.3-4.7 604) Chip Silo Tender ID - ADMINBLOOD GAS, [id number] 04:27:00 Test Item Value Reference Range Interpretation [...] (BEAKER) (test code = 1819) 35.0 POCT-GLUCOSE [id number] 01:17:00 Test Item Value Reference Range Interpretation Comments POC-GLUCOSE METER 115 mg/dL 70-110 H : TESTED A T [facility] 6720 (BEAKER) (test code = [employer] [place], 1538) 74195: Chip Silo Tender/Techni marielos ID = [id number] for MAMIE DORIS DERRICK POCT-GLUCOSE [id number] 17:51:00 Test Item Value Reference Range Interpretation Comments POC-GLUCOSE METER 126 mg/dL 70-110 H : TESTED A T [facility] 6720 (BEAKER) (test code = [employer] [facility], 1538) 94529: Chip Silo Tender/Techni marielos ID = [id number] for LE IJA, AURA [id number] 16:39:00 Test Item Value Reference Range Interpretation Comments SODIUM (BEAKER) (test code = 381) 139 meq/L 136-145 Chip Silo Tender ID - ADMINPOCT-GLUCOSE [id number] 11:41:00 Test Item Value Reference Range Interpretation Comments POC-GLUCOSE METER 133 mg/dL 70-110 H : TESTED A T [facility] 6720 (BEAKER) (test code = [place], 1538) 37056: Chip Silo Tender/Techni marielos ID = [id number] for LE IJA, AURA RAD, CHEST, 1 VIEW, NON [id number] 09:34:00Reason for exam:- >intubatedShould this be performed at the bedside?->Yes [facility] : 1945 Sex: FFINALREPORT RAD, CHEST, 1 VIEW, NON DEPT INDICATION: intubated COMPARISON: Prior day's exam FINDINGS: Portable frontal view of the chest. IMPRESSION: Support Lines: Stable. Lungs and pleura: Clear lungs. No consolidation. No pneumothorax.Heart and mediastinum: Stable contours. Additional findings: None. Signed: JR Mcmanus Robert MDReport Verified Date/Time: 01/03/2021 09:34:12Reading Location: [facility] Radiology Reading Room BASIC METABOLIC PANEL 2021-01-03 [...] S NOT APPLICABLE FOR DIALYSIS PATIEN TS. Chip Silo Tender ID - [id number] 05:47:00 Test Item Value Reference Range Interpretation Comments MAGNESIUM (BEAKER) (test code = 2.2 mg/dL 1.6-2.6 627) Chip Silo Tender ID - [id number] 05:47:00 Test Item Value Reference Range Interpretation Comments PHOSPHORUS (BEAKER) (test code = 3.2 mg/dL 2.3-4.7 604) Chip Silo Tender ID - ADMINPOCT-GLUCOSE [id number] 05:34:00 Test Item Value Reference Range Interpretation Comments POC-GLUCOSE METER 130 mg/dL 70-110 H : TESTED A T [facility] 6720 (BEAKER) (test code = [place], 1538) 57642: Chip Silo Tender/Techni marielos ID = [id number] for Tiffanie Thompsony CBC W/PLT COUNT & AUTO [id number] 05:02:00 Test Item Value Reference Range Interpretation [...] (BEAKER) (test code = 2801) BLOOD GAS, [id number] 04:53:00 Test Item Value Reference Range Interpretation [...] (BEAKER) (test code = 1819) 35.0 POCT-GLUCOSE [id number] 23:24:00 Test Item Value Reference Range Interpretation Comments POC-GLUCOSE METER 130 mg/dL 70-110 H : TESTED A T [facility] 6720 (BEAKER) (test code = [place], 1538) 57120: Chip Silo Tender/Techni marielos ID = [id number] for Deysi Thompson [id number] 18:30:00 Test Item Value Reference Range Interpretation Comments POTASSIUM (BEAKER) 4.2 meq/L 3.5-5.1 Specimen slightly (test code = 379) hemolyzed Chip Silo Tender ID - ADMINVenous doppler legs [id number] 18:05:34Ejection FractionSLEH ECHO HEARTLAB MKCKESSON CPACSRight Impression1. [...] Study 01/02/2021 Age 75 Visit N manny [id number] Gender Female Date of 1945 Number Referring Sal Wooten Room Number 7409 Physician [employer]inee Bartolo Clark RVS Interpreting MD Rebekah Ennis [...] in cm/s ; Di[facility] [id number] 18:05:01Ejection [facility] ECHO HEARTLAB MKCKESSON CPACSRight Impression1. There is [...] of Study 01/02/2021 Age 75 Visit Number [id number] Gender Female Date of 1945 Number Referring [facility] Room Number 7409 Physician [employer] Trainee Bartolo Clark RVS Interpreting MD Rebekah Ennis,RVT Physician ProcedureType of Study: Veins: Upper Extremities Veins, VENOUS DOPPLER ARMS, BILATERAL. Indications for Study:ICU surveillance.Patient Status:Routine.Study Location:Portable.Technical Quality:Adequate visualization. - Results were reported to:Sanjana SCHULER @ 6832.Risk FactorsHistory of Diseas e+ +----+--------+!Di agnosis !Date!Comment [...] in cm/s ; Diameters are measured in [facility] ParkCT- GLUCOSE [id number] 17:46:00 Test Item Value Reference Range Interpretation Comments POC-GLUCOSE METER 134 mg/dL 70-110 H : TESTED A T [facility] 6720 (BEAKER) (test code = [place], 1538) 6[address]: Chip Silo Tender/Techni marielos ID = [id number] for AURELIO NARVAEZ [id number] 17:40:00 Test Item Value Reference Range Interpretation Comments SODIUM (BEAKER) (test code = 381) 139 meq/L 136-145 Chip Silo Tender ID - [id number] 15:00:00 Test Item Value Reference Range Interpretation Comments POTASSIUM (BEAKER) 3.8 meq/L 3.5-5.1 Specimen slightly (test code = 379) hemolyzed [id number] 13:34:00 Test Item Value Reference Range Interpretation Comments MAGNESIUM (BEAKER) (test code = 2.4 mg/dL 1.6-2.6 627) Transcranial Doppler Complete (TCD)2021-01-02 13:04:27Chloé Gold 01/02/2021 1:04 PMTCD complete, [facility] [id number] 11:49:00 Test Item Value Reference Range Interpretation Comments POC-GLUCOSE METER 116 mg/dL 70-110 H : TESTED A T [facility] 6720 (BEAKER) (test code = [place], 1538) 84124: Chip Silo Tender/Techni marielos ID = [id number] for AURELIO NARVAEZ [id number] 07:20:00 Test Item Value Reference Range Interpretation Comments MAGNESIUM (BEAKER) 2.1 mg/dL 1.6-2.6 Specimen slightly (test code = 627) hemolyzed BASIC METABOLIC [id number] 07:20:00 Test Item Value Reference Range Interpretation [...] 1092) DATA TO CALCULA TE ESTIMATED GFR. [id number] 07:11:00 Test Item Value Reference Range Interpretation Comments PHOSPHORUS (BEAKER) 2.9 mg/dL 2.3-4.7 Specimen slightly (test code = 604) hemolyzed POCT-GLUCOSE [id number] 06:10:00 Test Item Value Reference Range Interpretation Comments POC-GLUCOSE METER 122 mg/dL 70-110 H : TESTED A T [facility] 6720 (BEAKER) (test code = [place], 1538) 04262: Chip Silo Tender/Techni marielos ID = [id number] for Deysi Thompson CBC W/PLT COUNT & AUTO [id number] 04:22:00 Test Item Value Reference Range Interpretation [...] (BEAKER) (test code = 2801) BLOOD GAS, [id number] 04:16:00 Test Item Value Reference Range Interpretation [...] 1819) 35.0 RAD, CHEST, 1 VIEW, NON [id number] 04:05:00Reason for exam:- >intubatedShould this be performed at the bedside?->Yes [facility] 1945 Sex: FFINAL REPORT RAD, CHEST, 1 VIEW, NON DEPT INDICATION: intubated COMPARISON: Prior day's exam FINDINGS: Portable frontal view of the chest. IMPRESSION: Support Lines: Stable. Lungs and pleura: No consolidation or sizable effusion. Unchanged bibasilar atelectasis. No pneumothorax.Heart and mediastinum: Stable contours.Additional findings: None. Signed: Danielle Espinal [facility] Verified Date/Time: 01/02/2021 04:05:39 MR, BRAIN, WITHOUT [id number] 02:18:00 Unlisted Reason for Exam - Click Yes and Enter Reason Below->No [facility] : 1945 Sex: FFINALREPORT [...] Date/Time: 01/02/2021 02:18:34 MR brain without IV [id number] 02:18:00Interface, External Ris In - 01/02/2021 2:20 [...] Danielle Espinal MDReport Verified Date/Time: 01/02/2021 02:18:34 [facility] POCT-GLUCOSE [id number] 23:48:00 Test Item Value Reference Range Interpretation Comments POC-GLUCOSE METER 127 mg/dL 70-110 H : TESTED A T [facility] 6720 (BEAKER) (test code = [place], 1538) 33819: Chip Silo Tender/Techni marielos ID = [id number] for Deysi Thompson VANCOMYCIN LEVEL, [id number] 20:05:00 Test Item Value Reference Range Interpretation Comments VANCOMYCIN TROUGH (BEAKER) (test 5.0 ug/mL 10.0-20.0 L code = 522) Chip Silo Tender ID - [id number] 18:24:00 Test Item Value Reference Range Interpretation Comments SODIUM (BEAKER) (test code = 381) 139 meq/L 136-145 [id number] 18:24:00 Test Item Value Reference Range Interpretation Comments MAGNESIUM (BEAKER) (test code = 2.3 mg/dL 1.6-2.6 627) [id number] 18:22:00 Test Item Value Reference Range Interpretation Comments POTASSIUM (BEAKER) (test code = 3.1 meq/L 3.5-5.1 L 379) POCT-GLUCOSE [id number] 18:02:00 Test Item Value Reference Range Interpretation Comments POC-GLUCOSE METER 140 mg/dL 70-110 H : TESTED A T [facility] 6720 (BEAKER) (test code = JO[facility] Hadd[facility], 1538) 79441: Chip Silo Tender/Techni marielos ID = [id number] for LE IJA, AURA Transcranial Doppler Complete (TCD)2021-01-01 17:05:10ValentinaChloé perez 01/01/2021 5:05 PMTCD complete, [facility] [id number] 12:19:00 Test Item Value Reference Range Interpretation Comments POC-GLUCOSE METER 143 mg/dL 70-110 H : TESTED A T [facility] 6720 (BEAKER) (test code = JOAN Haddad [facility], 1538) [id number]: Chip Silo Tender/Techni marielos ID = [id number] for LE IJA, AURA SPUTUM CULTURE + GRAM [id number] 10:58:00 Test Item Value Reference Range Interpretation Comments CULTURE (BEAKER) (test No growth code = 1095) GRAM STAIN RESULT 1+ WBCs (BEAKER) (test code = 1123) GRAM STAIN RESULT 0-5 epithelial cells (BEAKER) (test code = 00096) GRAM STAIN RESULT No organisms seen (BEAKER) (test code = 46173) SPUTUM CULTURE + GRAM [id number] 10:46:00 Test Item Value Reference Range Interpretation Comments CULTURE (BEAKER) (test code No growth = 1095) GRAM STAIN RESULT (BEAKER) 2+ WBCs (test code = 1123) GRAM STAIN RESULT (BEAKER) No organisms seen (test code = 10084) RAD, CHEST, 1 VIEW, NON [id number] 10:03:00Reason for exam:- >intubatedShould this be performed at the bedside?->Yes [facility] : 1945 Sex: FFINALREPORT [...] above. No acute cardiopulmonary abnormality. Signed: Yodit Martineseport Verified Edwin e/Time: 01/01/2021 10:03:00 Reading Location: [facility] Diagnostic Imaging Reading Room - [place] [address] [id number] 09:01:00 Test Item Value Reference Range Interpretation Comments PHOSPHORUS (BEAKER) 2.4 mg/dL 2.3-4.7 Specimen slightly (test code = 604) hemolyzed [id number] 08:54:00 Test Item Value Reference Range Interpretation Comments MAGNESIUM (BEAKER) 2.1 mg/dL 1.6-2.6 Specimen slightly (test code = 627) hemolyzed BASIC METABOLIC [id number] 08:54:00 Test Item Value Reference Range Interpretation [...] TO CALCULA TE ESTIMATED GFR. BLOOD GAS, [id number] 07:40:00 Test Item Value Reference Range Interpretation [...] (BEAKER) (test code = 1819) 35.0 POCT-GLUCOSE [id number] 05:24:00 Test Item Value Reference Range Interpretation Comments POC-GLUCOSE METER 155 mg/dL 70-110 H : TESTED A T [facility] 6720 (BEAKER) (test code = [place], 1538) [address]: Chip Silo Tender/Techni marielos ID = [id number] for Deysi Thompson CBC W/PLT COUNT & AUTO [id number] 04:51:00 Test Item Value Reference Range Interpretation [...] PERCENT (BEAKER) (test code = 2801) POCT-GLUCOSE [id number] 23:38:00 Test Item Value Reference Range Interpretation Comments POC-GLUCOSE METER 112 mg/dL 70-110 H : TESTED A T [facility] 6720 (BEAKER) (test code = [place], 1538) [address]: Chip Silo Tender/Techni marielos ID = [id number] for Deysi Thompson POCT-GLUCOSE [id number] 19:23:00 Test Item Value Reference Range Interpretation Comments POC-GLUCOSE METER 109 mg/dL 70-110 : TESTED A T [facility] 6720 (BEAKER) (test code = [place], 1538) [address]: Chip Silo Tender/Techni marielos ID = [id number] for LL EVANS DENT [id number] 16:35:00 Test Item Value Reference Range Interpretation Comments MAGNESIUM (BEAKER) 2.3 mg/dL 1.6-2.6 Specimen slightly (test code = 627) hemolyzed Chip Silo Tender ID - [id number] 16:35:00 Test Item Value Reference Range Interpretation Comments POTASSIUM (BEAKER) 3.7 meq/L 3.5-5.1 Specimen slightly (test code = 379) hemolyzed Chip Silo Tender ID - [id number] 16:35:00 Test Item Value Reference Range Interpretation Comments SODIUM (BEAKER) (test code = 381) 138 meq/L 136-145 Chip Silo Tender ID - DBTranscranial Doppler Complete (TCD)2020-12-31 16:25:13 Heraclio Davila MD 01/04/2021 11:00 [facility]- Transcranial Doppler Report Referring physician: Dr. Martniez Indication: aSAH Maximal estimated mean bloodflow velocities (cm / sec): R EC ICA 38 L EC ICA 36 R Ophthalmic - L Ophthalmic - R MCA 80 R PABLO 53 R ICA R ABSTRACT MANAGER 64 L MCA 67 L PABLO 74 L ICA L ABSTRACT MANAGER 48 R vertebral 25 L vertebral 27 [...] reviewed records, and agree with documentation above. .[facility] CenterRAD[facility]BDOMEN/KUB, 1 VIEW AP 2020-12-31 13:56:00Reason for exam:->check placement of feeding tubeShould this be performed at the bedside?->Yes [facility] : 1945 Sex: FFINALREPORT RAD, ABDOMEN/KUB, 1 VIEW AP COMPARISON: December 28, 2020 INDICATION: checkplacement of feeding tube IMPRESSION:A feeding tube has been placed. The distal tip projects over the antrum. The visible bowel gas pattern is unremarkable. Signed: JR Mcmanus Robert MDReport Verified Date/Time: 12/31/2020 13:56:31 Reading Location: [facility] Radiology Reading Room XR abdomen / KUB 1 [id number] 13:56:00Interface, External Ris In - 12/31/2020 1:58 PM CDTFINAL REPORT RAD, ABDOMEN/KUB, 1 VIEW AP COMPARISON: December 28, 2020 INDICATION: check placement of feeding tube IMPRESSION:A feeding tube has been placed. The distal tip projects over the antrum. The visible bowel gas pattern is unremarkable. Signed: JR Mcmanus Robert MDReport Verified Date/Time: 12/31/2020 13:56:31 Reading Location: [facility] Radiology [facility] 2020-12-31 12:58:00 Test Item Value Reference Range Interpretation Comments POC-GLUCOSE METER 127 mg/dL 70-110 H : TESTED A T [facility] 6720 (BEAKER) (test code = [place], 1538) [address]: Chip Silo Tender/Techni marielos ID = [id number] for An roni (pca2)Jaye [id number] 06:49:00 Test Item Value Reference Range Interpretation Comments MAGNESIUM (BEAKER) 2.0 mg/dL 1.6-2.6 Specimen slightly (test code = 627) hemolyzed Chip Silo Tender ID - ADMINBASIC METABOLIC [id number] 04:34:00 Test Item Value Reference Range Interpretation [...] 1092) DATA TO CALCULA TE ESTIMATED GFR. Chip Silo Tender ID - ADMINCBC W/PLT COUNT & AUTO [id number] 04:06:00 Test Item Value Reference Range Interpretation [...] PERCENT (BEAKER) (test code = 2801) POCT-GLUCOSE [id number] 00:19:00 Test Item Value Reference Range Interpretation Comments POC-GLUCOSE METER 112 mg/dL 70-110 H : TESTED A T [facility] 6720 (BEAKER) (test code = [place], 1538) [address]: Chip Silo Tender/Techni marielos ID = [id number] for Deysi Thompson Prepare Leuko-Red [id number] 23:54:00 Test Item Value Reference Range Interpretation Comments CROSSMATCH (test code = 2264) COMPATIBLE Unit ABO (test code = B Pos [id number]) UNIT NUMBER (test code = [id number] 934-0) Status (test code = 5815994) TX_TIMEINCHART Blood Bank Product (test code RED BLOOD CELLS = 2263) PRODUCT CODE (test code = N5823I68 933-2) [facility] CenterHEMOGLOBIN AND [id number] 21:07:00 Test Item Value Reference Range Interpretation Comments HEMOGLOBIN (BEAKER) (test code = 8.3 GM/DL 11.2-15.7 L 410) HEMATOCRIT (BEAKER) (test code = 24.7 % 34.1-44.9 L 411) Chip Silo Tender ID - [id number] W VID 2-12 HR CONTINUOUS MONITORING (VEEG)2020-12-30 18:16:00BillingPORTERVILLE DEVELOPMENTAL CENTERName: S[facility]O : 1945 [facility] REPORT NAME: Sonu Arellano DATE(s) OF TEST: 12/30/2020 DATE OF REPORT: 12/30/2020 ACC: [id number] EE-1178 Start time/date: 12/30/20, 8:12 am Stop time/date: 12/30/20, 4:28 pm ICD-10: R56.9 CPT Code: 03963 HISTORY: 75 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 MEDICATIONS THAT COULD AFFECT EEG: Keppra TECHNICAL SUMMARY: This is a [facility] digital video EEG recorded with 32 input [...] External Ris In - 12/30/2020 6:16 PM [facility] Video EEG REPORT NAME: Sonu Arellano DATE(s) OF TEST: 12/30/2020 DATE OF REPORT: 12/30/2020 ACC: [id number] EE-1178 Start time/date: 12/30/20, 8:12 am Stop time/date: 12/30/20, 4:28 pm ICD-10: R56.9 CPT Code: 71544 HISTORY: 75 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 MEDICATIONS THAT COULD AFFECT EEG: Keppra TECHNICAL SUMMARY: This is a [facility] digital video EEG recorded with 32 input [...] Frankie Kitchen MD, MS Clinical Neurophysiology/Epilepsy Attending [facility]2021-08-08 17:35:00 Test Item Value Reference Range Interpretation Comments SODIUM (BEAKER) (test code = 381) 139 meq/L 136-145 Chip Silo Tender ID - CHRISTINA WPOCT-GLUCOSE [id number] 17:22:00 Test Item Value Reference Range Interpretation Comments POC-GLUCOSE METER 116 mg/dL 70-110 H : [facility] (BEAKER) (test code = [place], 1538) [address]: Chip Silo Tender/Techni marielos ID = [id number] for SEBASTIÁN STARKS Transcranial Doppler Complete (TCD)2020-12-30 16:35:00Julian Epstein MD 01/03/2021 4:[facility] Indica tion: aSAH Maximal estimated mean blood flow velocities (cm / sec): R EC ICA 39 L EC ICA 31 R Ophthalmic L Ophthalmic R MCA 80 R PABLO 49 R ICA R ABSTRACT MANAGER 58 L MCA 58 L PABLO L ICA L ABSTRACT MANAGER R vertebral L Basilar 34 [place] (R MCA:R ECICA) 2.05 [place] (L MCA:L ECICA) 1.87 Post bleed day #: 2 Velocity Range Thompson Elevated velocity = 90 - 119 cm/sec Mild vasospasm = 120 - 159 cm/sec Moderate vasospasm = 160 - 199 cm/sec Severe vasospasm = ? 200 cm/sec Interpretation:Velocities within acceptable ranges.Clinical Correlation is recommended.[facility] CenterCT, BRAIN, WITHOUT [id number] 12:31:00Unlisted Reason for Exam - Click Yes and Enter Reason Below- >YesUnlisted Reason for Exam->Leftpupil large [facility] : 1945 Sex: FFINALREPORT [...] MDReport Verified Date/Time: 12/30/2020 12:31:25 Reading Location: [address] Neuro Reading Room POCT- GLUCOSE [id number] 12:13:00 Test Item Value Reference Range Interpretation Comments POC-GLUCOSE METER 122 mg/dL 70-110 H : TESTED A T 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 MEDICATIONS THAT COULD AFFECT EEG: Kearistidesra TECHNICAL SUMMARY: This is a [facility] digital video EEG recorded with32 input channels [...] Kitchen MD, MS Clinical Neurophysiology/Epi lepsy Attending [facility]2D Echo W/Doppler(CW/PW/Color)2020-12-30 11:19:34Ejection FractionSLEH ECHO HEARTLAB MKCKESSON CPACSInterface, External Ris In - 12/30/2020 11:19 AM CDTTransthoracic Echocardiography Report (TTE) Demographics Patient Name DELINEA, Date of Study 12/29/2020 SONU Gender Female Visit Number [id number] Race Unknown Room Number 7409 Number Date of 1945 Referring Jordanswathinadiyaava Brad Heraclio Physician Andre Age 75 year(s) Sales And Management Trainee Nica Summers, [facility] Aoc Director Combat Plans Officer Sancho Felipe Interpreting Chepe Monet MD Physician [...] TR Velocity: 2.64 m/s TR Gradient: 27.88 mmHgSt. Mary Regional Medical [id number] 11:08:00 Test Item Value Reference Range Interpretation Comments PROCALCITONIN (BEAKER) (test code 0.72 ng/mL <0.05 H = 3036) SEPSIS RISK (ng/mL)Low: 0.05-0.50Intermediate: 0.51-2.00High: >=2.01 Urinalysis Microscopic [id number] 10:55:00 Test Item Value Reference Range Interpretation Comments RBC, UA (test 12 See_Comment [Automated me ssage] code = 10800-7) The system w [employer] generated this result transmitted ref erence range: /HPF. Th e reference range was not used to int erpret this result as normal/abnormal . WBC, UA (test 1 See_Comment [Automated me ssage] code = 5821-4) The system [facility] generated this result transmitted ref erence range: /HPF. Th e reference range was not used to int erpret this result as normal/abnormal . Bacteria, UA None Seen (test code = 82745-7) Mucus (test Rare code = 8247-9) Squam Epithel, <1 See_Comment [Automated m essage] UA (test code = The system w [facility] 82760-6) generated this result transmitted ref erence range: /HPF. Th e reference range was not used to int erpret this result as normal/abnormal . Crystals, Urine None Seen (test code = 35101-4) NETTIE (test code Chip Silo Tender ID - tech = NETTIE) [facility] CenterURINALYSIS [id number] 10:55:00 Test Item Value Reference Range Interpretation Comments RBC UA (BEAKER) (test code = 519) 12 /HPF WBC UA (BEAKER) (test code = 520) 1 /HPF BACTERIA (BEAKER) (test code = 517) None Seen MUCUS (BEAKER) (test code = 1574) Rare SQUAMOUS EPITHELIAL (BEAKER) (test < /HPF code = 516) CRYSTALS, URINE (BEAKER) (test code None Seen = 1521) Chip Silo Tender ID - techUrinalysis with Microscopic If [id number] 10:20:00 Test Item Value Reference Range Interpretation Comments Color, UA (test code = Light Yellow 5778-6) Clarity, UA (test code = Clear 5767-9) Specific Orange, UA (test 1.020 1.001-1.035 code = 5811-5) pH, UA (test code = 6.0 5.0-8.0 5803-2) Protein, UA (test code = 30 mg/dL Negative A 15224-8) Glucose, UA (test code = Negative Negative 365) Ketones, UA (test code = Negative Negative 2514-8) Bilirubin, UA (test code = Negative Negative 73336-6) Blood, UA (test code = Small Negative A 91761-3) Nitrite, UA (test code = Negative Negative 5802-4) Leukocytes, UA (test code Negative Negative = 5799-2) Urobilinogen, UA (test 0.2 mg/dL 0.2-1 code = 97903-1) Specimen Source (test code = 2795) NETTIE (test code = NETTIE) Chip Silo Tender ID - [auto] Lab Interpretation (test Abnormal code = 11992-4) [facility] CenterURINALYSIS WITH MICROSCOPIC IF [id number] 10:20:00 Test Item Value Reference Range Interpretation [...] = 463) SOURCE(BEAKER) (test code = 2795) Chip Silo Tender ID - [auto][id number] 09:53:00 Test Item Value Reference Range Interpretation Comments MAGNESIUM (BEAKER) 2.2 mg/dL 1.6-2.6 Specimen slightly (test code = 627) hemolyzed Chip Silo Tender ID - CHRISTINA WCBC W/PLT COUNT & AUTO [id number] 09:48:00 Test Item Value Reference Range Interpretation [...] CONCENTRATION Adequate (CELLAVISION)(BEAKER) (test code = 3438) Chip Silo Tender ID - Margarita OverholtUser comments: Slide comments:POCT-GLUCOSE METER 2020-12-30 07:07:00 Test Item Value Reference Range Interpretation Comments POC-GLUCOSE METER 152 mg/dL 70-110 H : TESTED A T [facility] 6720 (BEAKER) (test code = [place], 1538) [address]: Chip Silo Tender/Techni marielos ID = [id number] for [facility] [place] BASIC METABOLIC [id number] 06:30:00 Test Item Value Reference Range Interpretation [...] 1092) DATA TO CALCULA TE ESTIMATED GFR. Chip Silo Tender ID - CHRISTINA SANDERSON, CHEST, 1 VIEW, NON [id number] 04:02:00Reason for exam:->IntubatedShould this be performed at the bedside?->Yes [facility] 1945 Sex: FFINALREPORT CLINICAL INDICATION: Support lines. Comparison: 12/29/2020 The cardiomediastinal contours are stable. The upper lungs are clear. Central pulmonary vascular prominence and bilateral parenchymal and pleural opacities are otherwise similar to previous. There is no pneumothorax. Support lines are stable. Signed: Gissell Moore MDRepfreeman orthopaedics & sports medicine Verified Date/Time: 12/30/2020 04:02:02 SODIUM 2020-12-30 01:05:00 Test Item Value Reference Range Interpretation Comments SODIUM (BEAKER) (test code = 381) 142 meq/L 136-145 Chip Silo Tender ID - DBPOCT-GLUCOSE [id number] 00:20:00 Test Item Value Reference Range Interpretation Comments POC-GLUCOSE METER 144 mg/dL 70-110 H : TESTED A T [facility] 6720 (BEAKER) (test code = [place], 1538) [address]: Chip Silo Tender/Techni marielos ID = [id number] for [facility] [place] HEMOGLOBIN AND [id number] 17:28:00 Test Item Value Reference Range Interpretation Comments HEMOGLOBIN (BEREGINA) (test code = 8.0 GM/DL 11.2-15.7 L 410) HEMATOCRIT (NAZARIO) (test code = 23.5 % 34.1-44.9 L 411) Chip Silo Tender ID - 6000POCT-GLUCOSE [id number] 17:27:00 Test Item Value Reference Range Interpretation Comments POC-GLUCOSE METER 148 mg/dL 70-110 H : Notified RN/MD: (NAZARIO) (test code = TESTED AT [facility] 0670 6205) [facility], [address]: Chip Silo Tender/Techni marielos ID = [id number] for EVANS ERAZO EEG W VID 12-26 HR CONTINUOUS MONITORING (VEEG)2020-12-29 17:12:00Reason for exam:->ICH concern for seizure [facility] : 1945 [facility] REPORT NAME: Sonu ArellanoMRN: [id number](s) OF TEST: 12/28/2020 - 12/29/2020ATE OF REPORT: 12/29/2020 ACC: [id number]: 21- 1178 Start time/date: 12/28/20, 1111pStop time/date: 12/29/20, 134pICD-10: R56.9CPT Code: 68486 HISTORY: 75 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 MEDICATIONS THAT COULD AFFECT EEG: Fosphenytoin, Keppra TECHNICAL SUMMARY:This is [facility] digital video EEG recorded with 32 [...] electrographic seizures have been captured. Ne urophysiology/Epilepsy FellowPomable Castrejon MD I have reviewed this electroencephalogram, discussed the findings with the fellow, addended the fellow's report and agree with the overall assessment. Frankie Kitchen MD, MSClinical Neurophysiology/Epilepsy Attending EEG 12-26 HR Continuous Monitoring with [id number] 17:12:00Interface, External Ris In - 12/29/2020 5:[address] [facility] Video EEG REPORT NAME: Sonu ArellanoMRN: [id number](s) OF TEST: 12/28/2020 - 12/29/2020ATE OF REPORT: 12/29/2020 ACC: [id number]: 21- 1178 Start time/date: 12/28/20, 1111pStop time/date: 12/29/20, 134pICD-10: R56.9CPT Code: 50754 HISTORY: 75 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 MEDICATIONS THAT COULD AFFECT EEG: Fosphenytoin, Keppra TECHNICAL SUMMARY:This is a [facility] EEG recorded with 32 input [...] assessment. Frankie Kitchen MD, MSClinical Neurophysiology/Epilepsy Attending [facility] PresbyterianODIUM 2020-12-29 16:46:00 Test Item Value Reference Range Interpretation Comments SODIUM (NAZARIO) (test code = 381) 144 meq/L 136-145 Chip Silo Tender ID - BEN MPOCT-GLUCOSE [id number] 12:31:00 Test Item Value Reference Range Interpretation Comments POC-GLUCOSE METER 185 mg/dL 70-110 H : Notified RN/MD: (SHANEREGINA) (test code = TESTED AT [facility] 6720 1538) [facility], [address]: Chip Silo Tender/Techni marielos ID = [id number] for EVANS ERAZO CT, CTANGIO [id number] 10:52:00Include non-contrast CTHUnlisted Reason for Exam - Click Yes and Enter Reason Below->YesUnlisted Reason for Exam->aSAH s/p clipPORTERVILLE DEVELOPMENTAL CENTERName: SONU ARELLANO : 1945 Sex: FFINALREPORT [...] MDReport Verified Date/Time: 12/29/2020 10:52:22 Reading Location: [address] Neuro Reading Room CBC W/PLT COUNT & AUTO [id number] 09:24:00 Test Item Value Reference Range Interpretation [...] CONCENTRATION Decreased (CELLAVISION)(BEAKER) (test code = 3438) Chip Silo Tender ID - Margarita OverholtUser comments: Slide comments:Hemoglobin A1c 2020-12-29 07:57:00 Test Item Value Reference Range Interpretation Comments Hemoglobin A1C (test code = 4548-4) 5.3 % 4.3-6.1 Lab Interpretation (test code = Normal 37204-9) [facility] CenterHEMOGLOBIN [id number] 07:57:00 Test Item Value Reference Range Interpretation Comments HEMOGLOBIN A1C (BEAKER) (test code = 5.3 % 4.3-6.1 368) BLOOD GAS, [id number] 07:52:00 Test Item Value Reference Range Interpretation [...] (test code = 1819) 100.0 BASIC METABOLIC [id number] 07:06:00 Test Item Value Reference Range Interpretation [...] 1092) DATA TO CALCULA TE ESTIMATED GFR. Chip Silo Tender ID - BEN [id number] 07:03:00 Test Item Value Reference Range Interpretation Comments MAGNESIUM (BEAKER) (test code = 2.5 mg/dL 1.6-2.6 627) Chip Silo Tender ID - BEN [id number] 07:03:00 Test Item Value Reference Range Interpretation Comments PHOSPHORUS (BEAKER) (test code = 2.1 mg/dL 2.3-4.7 L 604) Chip Silo Tender ID - BEN MPOCT-GLUCOSE [id number] 06:18:00 Test Item Value Reference Range Interpretation Comments POC-GLUCOSE METER 147 mg/dL 70-110 H : TESTED A T [facility] 6720 (BEAKER) (test code = [place], 1538) [address]: Chip Silo Tender/Techni marielos ID = [id number] for Lucy Gomez BLOOD GAS, [id number] 06:11:00 Test Item Value Reference Range Interpretation [...] 1819) 30.0 RAD, CHEST, 1 VIEW, NON [id number] 05:27:00Reason for exam:- >IntubatedShould this be performed at the bedside?->Yes [facility] : 1945 Sex: FFINALREPORT [...] Stable contours.Additional findings: None. Signed: Ana Arreola [facility] Verified Date/Time: 12/29/2020 05:27:13 CT BRAIN WITHOUT IV CONTRAST - [id number] 03:09:00Unlisted Reason for Exam - Click Yes and Enter Reason Below->NoPORTERVILLE DEVELOPMENTAL CENTERName: SONU ARELLANO : 1945 Sex: FFINALREPORT [...] Danielle Espinal MDReport Verified Date/Time: 12/29/2020 03:09:55 CT brain without [...] Danielle Espinal MDReport Verified Date/Time: 12/29/2020 03:09:55 [facility] CenterMAGNESIUM2021-08-07 02:04:00 Test Item Value Reference Range Interpretation Comments MAGNESIUM (BEAKER) (test code = 1.7 mg/dL 1.6-2.6 627) Chip Silo Tender ID - BEN [id number] 02:04:00 Test Item Value Reference Range Interpretation Comments PHOSPHORUS (BEAKER) (test code = 1.7 mg/dL 2.3-4.7 L 604) Chip Silo Tender ID - BEN MRAD, ABDOMEN/KUB, 1 VIEW [id number] 00:20:00Reason for exam:->ngt placement [facility] : 1945 Sex: FFINALREPORT [...] CONCENTRATION Adequate (CELLAVISION)(BEAKER) (test code = 3438) Chip Silo Tender ID - Elizabeth Murray comments: Slide comments:COMPREHENSIVE METABOLIC [id number] 22:40:00 Test Item Value Reference Range Interpretation [...] 1092) DATA TO CALCULA TE ESTIMATED GFR. Chip Silo Tender ID - DBPT/[id number] 22:40:00 Test Item Value Reference Range Interpretation Comments PROTIME (BEAKER) (test 14.8 seconds 11.9-14.2 H code = 759) INR (BEAKER) (test 1.17 See_Comment [Automat ed code = 370) message] The aisle411 stem which generated this result transmitted reference [...] mechanical heart valves.CBC W/PLT COUNT & AUTO [id number] 22:35:00 Test Item Value Reference Range Interpretation [...] 0-0 (BEAKER) (test code = 413) Prepare [id number] 20:43:00 Test Item Value Reference Range Interpretation Comments CROSSMATCH (test code = COMPATIBLE 2264) Unit ABO (test code = B Pos 8171586) UNIT NUMBER (test code = [id number] 934-0) Status (test code = RETURNED FROM ISSUE 0931310) Blood Bank Product (test RED BLOOD CELLS code = 2263) PRODUCT CODE (test code = [id number] 933-2) [facility] CenterHEMOGLOBIN [id number] 16:10:00 Test Item Value Reference Range Interpretation Comments HEMOGLOBIN A1C (BEAKER) (test code = 5.6 % 4.3-6.1 368) CBC W/PLT COUNT & AUTO [id number] 14:45:00 Test Item Value Reference Range Interpretation [...] CONCENTRATION Adequate (CELLAVISION)(BEAKER) (test code = 3438) Chip Silo Tender ID - Nola Diaz comments: Slide comments:SARS-COV2/RT-PCR ([facility])2020-12-28 14:15:00 Test Item Value Reference Range Interpretation Comments SARS-COV2/RT-PCR Negative Negative The SARS-Co V-2 target (test code = nucleic acids a re not [id number]) detected in thi s specimen. Negative result [...] revoked sooner. Fact Sheet for Healthcare Providers: https://www.SocialTagg.c om/Documents/Xpert%20Xpress%20SARS%20CoV-2/Fact%20Sheets/3023802%74JQMB-YFT-7%2 0HEALTHCARE%20PROVIDERS%20FACT%20SHEET.pdf Fact Sheet for Healthcare Patients: https://www.SocialTagg.Integrity Tracking/Documents/Xpert%20X press%20SARS%20CoV-2/Fact%20Sheets/3023801%94RMKI-HVS-8%20PATIENT%20FACT%20SPUJA MedinaInsert Arterial [id number] 13:56:27Adam Segoviaan 12/28/2020 2:01 PMInsert Arterial Line Date/Time: 12/28/2020 [...] to verify the correct patient, procedure, equipment, it desktop support technician and site/side marked as required.Preparation: Patient was prepped and draped in the usual sterile fashion.Indications: multiple ABGs and hemodynamic monitoringLocation: left radial Sedation:Patient sedated: no Needle gauge: 20Number of attempts: 2 [facility] CenterPhenytoin level, [id number] 13:37:00 Test Item Value Reference Range Interpretation Comments Phenytoin (test code = <0.5 10-20 L 3968-5) NETTIE (test code = NETTIE) Chip Silo Tender ID - DERRICK M Lab Interpretation (test Abnormal code = 59454-5) [facility]EN[facility]IN LEVEL, [id number] 13:37:00 Test Item Value Reference Range Interpretation Comments PHENYTOIN (DILANTIN) (BEAKER) (test < ug/mL 10.0-20.0 L code = 605) Chip Silo Tender ID - DERRICK MABORH, [id number] 13:27:00 Test Item Value Reference Range Interpretation Comments ABO Grouping (test code = 2588) B Rh Factor (test code = 2589) POS [facility] CenterBLOOD GAS, [id number] 12:49:00 Test Item Value Reference Range Interpretation [...] (test code = 1819) 30.0 CT, CTANGIO [id number] 11:32:00Ok to give contrast without Cr level.Unlisted Reason for Exam - Click Yes and Enter Reason Below->No [facility] 1945 Sex: FFINALREPORT [...] arteries: Normal contrast opacification of the bilateral ABSTRACT MANAGER P1-P2 branches.Venous opacification: Major dural sinuses unremarkable [...] the ophthalmic artery origin. Signed: Ana Arreola Verified Date/Time: 12/28/2020 11:32:07 Reading Location: [address] Neuro Reading Room POCT-GLUCOSE [id number] 11:29:00 Test Item Value Reference Range Interpretation Comments POC-GLUCOSE METER 163 mg/dL 70-110 H : Notified RN/: (NAZARIO) (test code = TESTED AT [facility] 6720 1538) [facility], [address]: Chip Silo Tender/Techni marielos ID = [id number] for EVANS ERAZO CT, BRAIN, WITHOUT [id number] 11:16:00Unlisted Reason for Exam - Click Yes and Enter Reason Below->No [facility] : 1945 Sex: FFINALREPORT [...] MDReport Verified Date/Time: 12/28/2020 11:16:20 Reading Location: [address] Neuro Reading Room C METABOLIC [id number] 10:41:00 Test Item Value Reference Range Interpretation [...] 1092) DATA TO CALCULA TE ESTIMATED GFR. Chip Silo Tender ID - BSHEPATIC FUNCTION [id number] 10:37:00 Test Item Value Reference Range Interpretation [...] (test code = 29 U/L 6-55 347) Chip Silo Tender ID - BSProthrombin time/[id number] 10:25:00 Test Item Value Reference Interpretation Comments Range Protime (test code = 13.0 See_Comment [Autom ated 1522-2) message] The system which generated this result transmitted reference range : 11.9 - 14.2 seconds. The reference range was not used to interpret this result as normal/abnormal . INR (test code = 1.00 See_Comment [Automated 2571-6) message] The system which generated this result [...] valves. Lab Interpretation Normal (test code = 72733-2) [facility] [id number] 10:25:00 Test Item Value Reference Range Interpretation Comments PTT (test code = 35656-7) 22.9 See_Comment [ Automated message] The system V Wave generated this result transmitted ref erence range: 22.5 - 3 6.0 seconds. The re ference range was not u sed to interpret this result as normal/abnor mal. Lab Interpretation (test Normal code = 62624-3) [facility] CenterPROTHROMBIN TIME/[id number] 10:25:00 Test Item Value Reference Range Interpretation Comments PROTIME (BEAKER) 13.0 seconds 11.9-14.2 (test code = 759) INR (BEAKER) (test 1.00 See_Comment [Automat ed message] code = 370) The system V Wave generated this result transmitted ref erence range: <=5.90. The reference range was not used to int erpret this result as normal/abnormal . RECOMMENDED COUMADIN/WARFARIN INR THERAPY RANGESSTANDARD DOSE: 2.0 - 3.0 Includes: PROPHYLAXIS for venous thrombosis, systemic embolization; TREATMENT for venous thrombosis and/or pulmonary embolus.HIGH RISK: Target INR is 2.5-3.5 for patients with mechanical heart valves.[id number] 10:25:00 Test Item Value Reference Range Interpretation Comments PARTIAL THROMBOPLASTIN TIME 22.9 seconds 22.5-36.0 (BEAKER) (test code = 760) RAD, CHEST, 1 VIEW, NON [id number] 09:47:00Reason for exam:- >IntubatedShould this be performed at the bedside?->Yes [facility] : 1945 Sex: FFINALREPORT [...] MDReport Verified Date/Time: 12/28/2020 09:47:24 Reading Location: [facility] Radiology Reading Room OPHYSIOLOGY REPORT - [id number] 00:00:00Ordered by an unspecified provider.[facility]NEUR[facility]HYSIOLOG[facility] REPORT - [id number] 00:00:00Ordered by an unspecified provider.[facility] NEUROPHYSIOLOGY REPORT - [id number] 00:00:00Ordered by an unspecified provider.[facility]OLOG[facility] REPORT - [id number] 00:00:00Ordered by an unspecified provider.[facility] NEUROPHYSIOLOGY REPORT - [id number] 00:00:00Ordered by an unspecified provider.[facility] REPORT - [id number] 00:00:00Ordered by an unspecified provider.[facility] NEUROPHYSIOLOGY REPORT - [id number] 00:00:00Ordered by an unspecified provider.[facility] REPORT - [id number] 00:00:00Ordered by an unspecified provider.[facility] NEUROPHYSIOLOGY REPORT - [id number] 00:00:00Ordered by an unspecified provider.[facility]NE[facility]HY[facility]OLOG[facility] REPORT - [id number] 00:00:00Ordered by an unspecified provider.[facility] LWA-[id number] 00:00:00Ordered by an unspecified provider.[facility]
--- NOTE | 2022-10-23 12:00 | RAD REPORT ---
EXAM DESCRIPTION: RAD - ENTEROSTOMY TUBE CHECK W/CONTR - 10/23/2022 11:49 am CLINICAL HISTORY: feeding tube replacement COMPARISON: Abdomen Pelvis W Contrast dated 02/06/2022 FINDINGS/IMPRESSION: Contrast injected via the gastrostomy tube confirms gastric positioning. Nonobs tructive bowel-gas pattern.
--- NOTE | 2022-10-23 12:26 | ER ---
Nurse's Notes [facility] Name: Georgina Chacko Age: 77 yrs Sex: Female : 1945 Arrival Date: 10/23/2022 Time: 10:16 Bed 20 Private MD: Ovidio Segovia Diagnosis: Encounter for attention to gastrostomy-Displacement Presentation: 10/23 10:24 Chief complaint: Spouse and/or significant other states: "I went to change the dressing mb9 on her feeding tube this morning, it looks like she pulled the feeding tube out". Coronavirus screen: Vaccine status: Patient reports receiving the 2nd dose of the covid vaccine. Ebola Screen: No symptoms or risks identified at this time. Initial Sepsis Screen: Does the patient meet any 2 criteria? No. Patient's initial sepsis screen is negative. Does the patient have a suspected source of infection? No. Patient's initial sepsis screen is negative. Risk Assessment: Do you want to hurt yourself or someone else? Patient reports no desire to harm self or others. Onset of symptoms was October 23, 2022. 10:24 Method Of Arrival: Wheelchair mb9 10:24 Acuity: INESSA 4 mb9 Triage Assessment: 10:27 General: Appears in no apparent distress. Behavior is cooperative. Pain: Denies pain. mb9 Neuro: Level of Consciousness is awake, alert, obeys commands. Respiratory: Airway is patent Respiratory effort is even, unlabored, Respiratory pattern is regular, symmetrical. GI: Parent/caregiver reports the patient having pt pulled out PEG tube this morning. Derm: Skin is pink, warm \\T\\ dry. Historical: - Allergies: 10:26 No Known Allergies; mb9 - Home Meds: 10:26 Vitamin B-12 Oral daily [Active]; amlodipine 5 mg tab 1 tab once daily [Active]; mb9 - PMHx: 10:26 CVA; HTN; mb9 - PSHx: 10:26 PEG tube; mb9 - Immunization history:: Adult Immunizations up to date. - Social history:: Smoking status: Patient denies any tobacco usage or history of. - Family history:: not pertinent. - Hospitalizations: : No recent hospitalization is reported. Screenin:42 [facility] ED Fall Risk Assessment (Adult) Score/Fall Risk Level 0 - 2 = Low Risk nj1 Oriented to surroundings, Maintained a safe environment, Hourly rounding (assess needs \\T\\ fall precautionary measures) done. Abuse screen: Denies threats or abuse. Denies injuries from another. Nutritional screening: No deficits noted. Tuberculosis screening: No symptoms or risk factors identified. Assessment: 11:00 Reassessment: No changes from previously documented assessment. nj1 Vital Signs: 10:24 BP 153 / 92; Pulse 64; Resp 16; Temp 99.1; Pulse Ox 98% on R/A; Weight 48.75 kg; Height mb9 5 ft. 4 in. ; 12:46 BP 149 / 83; Pulse 67; Resp 16; Pulse Ox 98% on R/A; nj1 10:24 Body Mass Index 18.45 (48.75 kg, 162.56 cm) 9 ED Course: 10:20 Patient arrived in ED. mr 10:20 Ovidio Segovia DO is Private Physician. mr 10:26 Triage completed. mb9 10:26 Arm band placed on. mb9 10:29 Jim Zamorano MD is Attending Physician. rn 11:00 Wound care: was dressed with Non woven drain sponge. nj1 11:19 Roxane Juarez, RN is Primary Nurse. nj1 11:42 Patient has correct armband on for positive identification. Call light in reach. Adult nj1 w/ patient. 11:50 Enterostomy Tube Check w/contr In Process Unspecified. EDMS 12:46 No provider procedures requiring assistance completed. Patient did not have IV access nj1 during this emergency room visit. Administered Medications: No medications were administered Medication: 12:46 VIS not applicable for this client. nj1 Outcome: 12:25 Discharge ordered by . rn 12:46 Discharged to home via wheelchair. nj1 12:46 Condition: stable 12:46 Discharge instructions given to patient, family, Instructed on discharge instructions, follow up and referral plans. Demonstrated understanding of instructions, follow-up care. 12:47 Patient left the ED. nj1 Signatures: Dispatcher [employer] EDCO Lucy Minor Roman, MD MD rn Breneman, Lucy Dumont RN RN mb9 Roxane Juarez RN RN nj1 Corrections: (The following items were deleted from the chart) 11:22 11:00 Wound care: was dressed with nj1 nj1
--- NOTE | 2022-10-23 12:26 | EDPHYS ---
Physician Documentation [facility] Name: Georgina Chacko Age: 77 yrs Sex: Female : 1945 Arrival Date: 10/23/2022 Time: 10:16 Bed 20 Private MD: Luca [facility] ED Physician Jim Zamorano HPI: 10/23 11:14 This 77 yrs old Female presents to ER via Wheelchair with complaints of Pulled rn out feeding tube. 11:14 Family reports fed patient this AM, tube was working fine, went back to change dressing rn and tube was out. This tube has been in "for long time". . Onset: The symptoms/episode began/occurred today. Severity of symptoms: At their worst the symptoms were mild in the emergency department the symptoms are unchanged. The patient has not experienced similar symptoms in the past. Historical: - Allergies: 10:26 No Known Allergies; mb9 - Home Meds: 10:26 Vitamin B-12 Oral daily [Active]; amlodipine 5 mg tab 1 tab once daily [Active]; mb9 - PMHx: 10:26 CVA; HTN; mb9 - PSHx: 10:26 PEG tube; mb9 - Immunization history:: Adult Immunizations up to date. - Social history:: Smoking status: Patient denies any tobacco usage or history of. - Family history:: not pertinent. - Hospitalizations: : No recent hospitalization is reported. 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 No pulse deficits. Respiratory: No increased work of breathing, no retractions or nasal flaring. Abdomen/GI: Soft, non-tender, stoma open Vital Signs: 10:24 BP 153 / 92; Pulse 64; Resp 16; Temp 99.1; Pulse Ox 98% on R/A; Weight 48.75 kg; Height mb9 5 ft. 4 in. ; 12:46 BP 149 / 83; Pulse 67; Resp 16; Pulse Ox 98% on R/A; nj1 10:24 Body Mass Index 18.45 (48.75 kg, 162.56 cm) mb9 Procedures: 11:01 G-tube placement: a 20 Serbian catheter was placed, by the ED physician, Ovidio Segovia DO, rn Feeding tube replaced, tolerated well, getting xray to confirm placement.. MDM: 10:29 Patient medically screened. rn 12:24 Differential Diagnosis feeding tube displacement. Data reviewed: vital signs, nurses rn notes, radiologic studies, plain films, and as a result, I will discharge patient. Counseling: I had a detailed discussion with the patient and/or guardian regarding: the historical points, exam findings, and any diagnostic results supporting the discharge/admit diagnosis, radiology results, the need for outpatient follow up, to return to the emergency department if symptoms worsen or persist or if there are any questions or concerns that arise at home. Special discussion: I discussed with the patient/guardian in detail that at this point there is no indication for admission to the hospital. It is understood, however, that if the symptoms persist or worsen the patient needs to return immediately for re-evaluation. 10/23 11:00 Order name: Enterostomy Tube Check w/contr; Complete Time: 12:02 rn Administered Medications: No medications were administered Disposition Summary: 10/23/22 12:25 Discharge Ordered Location: Home rn Problem: new rn Symptoms: have improved rn Condition: Stable rn Diagnosis - Encounter for attention to gastrostomy - Displacement rn Followup: rn - With: Private Physician - When: As needed - Reason: Recheck today's complaints, Re-evaluation by your physician Discharge Instructions: - Discharge Summary Sheet rn - Gastrostomy Tube Replacement rn - PEG Tube Home Guide, [id number] rn Forms: - Medication Reconciliation Form rn - Thank You Letter rn - Antibiotic bar turner - Prescription Opioid Use rn Signatures: Dispatcher [employer] EDJim Matias MD MD rn Breneman, Lucy Dumont, RN RN mb9
[2022-10-23 13:02] VITALS: TEMP 99.1; O2SAT 98
[2022-10-23 13:03] VITALS: BP 149/83
== END 2022-10-23 12:47 | disposition home or self-care (01) ==
LOC: ER 10:16
DX: K94.23 Gastrostomy malfunction (principal)
CPT/HCPCS: 49465; 99283

== ENCOUNTER → 2023-05-22 | Emergency (ER) | payer OTHER ==
[~2023-05-22] MED LIST: ACETAMINOPHEN 160 MG/5 ML UCUP ONE; NA CHLORIDE 0.9% 1,000 ML ONE
[2023-05-22 19:31] LABS: Absolute Lymphocytes (CBC) 0.5 K/uL (0.7-4.9); Hematocrit 45.5 % (36.0-45.0); Lymphocytes % 7.7 % (15.3-44.8); MPV 6.2 fL (7.6-11.3); Platelets 234 thou/uL (152-406); RBC Red Blood Cell Count 4.79 M/uL (3.86-4.86)
[2023-05-22 19:41] LABS: Protime INR 1.04
[2023-05-22 19:48] LABS: Albumin 3.4 g/dL (3.4-5.0); Bilirubin Total 0.3 mg/dL (0.2-1.0); Potassium 3.5 mEq/L (3.5-5.1); Protein, Total 8.2 g/dL (6.4-8.2)
[2023-05-22 21:05] LABS: Specific Gravity 1.017 (1.005-1.030); Urine Bacteria <20 /HPF (<20); Urine Bilirubin NEGATIVE (Negative); Urine Blood 3+ (Negative); Urine Clarity Extremely Turbid (Clear); Urine Color Yellow (Yellow); Urine Crystals Unidentified Few /HPF (None Seen); Urine Glucose NEGATIVE (Negative); Urine Mucus Slight /HPF (None Seen); Urine Protein 1+ (Negative); Urine RBC >50 /HPF (None Seen); Urine Urobilinogen Normal (Normal); Urine WBC Clump Occasional /HPF (None Seen)
--- NOTE | 2023-05-22 21:07 | RAD REPORT ---
EXAM DESCRIPTION: RADChest Single View05/22/2023 8:10 pm CLINICAL HISTORY: CONGESTION COMPARISON: Chest Single View dated 12/31/2021; Chest Single View dated 12/28/2020 TECHNIQUE: Portable AP view of the chest. FINDINGS: The lungs are clear superimposition of soft tissues obscured left basal lung. No pneumoth orax or effusion. The cardiomediastinal contours are unremarkable. IMPRESSION: No acute cardiopulmonary process.
--- NOTE | 2023-05-22 22:12 | ER ---
Nurse's Notes [facility] Name: Georgina Chacko Age: 77 yrs Sex: Female : 1945 Arrival Date: 05/22/2023 Time: 17:57 Bed 20 Private MD: Diagnosis: SARS-associated coronavirus as the cause of diseases classified elsewhere Presentation: 05/22 18:11 Chief complaint: Daughter reports cough x 5 days, fever x 3 days. TMAX 104. Tylenol at hb 1600. Coronavirus screen: Client presents with at least one sign or symptom that may indicate coronavirus-19. Provider contacted for isolation considerations. Ebola Screen: No symptoms or risks identified at this time. Initial Sepsis Screen: Does the patient meet any 2 criteria? Temp <36.0*C (96.8*F)) or > 38.3*C (100.9*F). HR > 90 bpm. Yes Does the patient have a suspected source of infection? No. Patient's initial sepsis screen is negative. Risk Assessment: Do you want to hurt yourself or someone else? Patient reports no desire to harm self or others. Onset of symptoms was May 17, 2023. 18:11 Method Of Arrival: Wheelchair hb 18:11 Acuity: INESSA 2 hb Historical: - Allergies: 18:13 No Known Allergies; hb - Home Meds: 18:13 amlodipine 5 mg tab 1 tab once daily [Active]; Vitamin B-12 Oral daily [Active]; hb - PMHx: 18:13 CVA; HTN; hb - PSHx: 18:13 PEG tube; hb - Immunization history:: Client reports receiving the 2nd dose of the Covid vaccine. - Social history:: Smoking status: Patient denies any tobacco usage or history of. Screenin:07 [facility] ED Fall Risk Assessment (Adult) History of falling in the last 3 months, tm6 including since admission No falls in past 3 months (0 pts). Abuse screen: Denies threats or abuse. Denies injuries from another. Nutritional screening: No deficits noted. Tuberculosis screening: No symptoms or risk factors identified. Assessment: 18:45 Reassessment: Patient appears in no apparent distress at this time. Patient and/or db family updated on plan of care and expected duration. Pain level reassessed. fever, stroke history. pt unable to move, ambulate, barely talks. General: Appears in no apparent distress. comfortable, Behavior is calm, cooperative. Pain: Unable to use pain scale. non verbal. Neuro: Level of Consciousness is awake, alert. Respiratory: Airway is patent Respiratory effort is even, unlabored, Respiratory pattern is regular, symmetrical. 20:48 Reassessment: Patient appears in no apparent distress at this time. Patient and/or tm6 family updated on plan of care and expected duration. Pain level reassessed. Patient is alert, oriented x 3, equal unlabored respirations, skin warm/dry/pink. 22:32 Reassessment: Patient appears in no apparent distress at this time. Patient and/or tm6 family updated on plan of care and expected duration. Pain level reassessed. Patient is alert, oriented x 3, equal unlabored respirations, skin warm/dry/pink. Vital Signs: 18:11 BP 143 / 85; Pulse 113; Resp 18; Temp 101.3(O); Pulse Ox 97% on R/A; Weight 49.9 kg; hb Height 5 ft. 2 in. ; Pain 3/10; 19:29 BP 140 / 89; Pulse 118; Resp 30; Pulse Ox 96% on R/A; Pain 0/10; tm6 20:47 Pulse 106; Pulse Ox 96% on R/A; tm6 21:00 Temp 102.3(O); tm6 22:07 BP 122 / 70; Pulse 87; Resp 17; Temp 100.7(O); Pulse Ox 96% on R/A; Pain 0/10; tm6 22:32 BP 122 / 70; Pulse 85; Pulse Ox 98% on R/A; Pain 0/10; tm6 18:11 Body Mass Index 20.12 (49.90 kg, 157.48 cm) hb 18:11 Pain Scale: Adult hb 19:29 Pain Scale: Adult tm6 22:07 Pain Scale: Adult tm6 22:32 Pain Scale: Adult tm6 ED Course: 18:00 Patient arrived in ED. ae5 18:08 Junior Francis MD is Attending Physician. kdr 18:13 Triage completed. hb 18:14 Arm band placed on. hb 18:42 Macie Dorsey, HARINI is Primary Nurse. db 18:45 Patient has correct armband on for positive identification. db 19:28 Inserted saline lock: 20 gauge in right antecubital area, using aseptic technique. bc6 Blood collected. 19:30 Blood Culture Adult (2) Sent. [facility] 19:30 CBC with Diff Sent. f 19:30 CMP Sent. [facility] 19:30 Lactate w/ 2H reflex if indic. Sent. f 19:30 Protime (+inr) Sent. [facility] 19:30 Ptt, Activated Sent. kmf 20:11 Chest Single View XRAY In Process Unspecified. EDTX 22:07 Provided Education on: plan of care. Client placed on continuous cardiac and pulse tm6 oximetry monitoring. NIBP monitoring applied. color television console monitor on. Door closed. Noise minimized. 22:07 No provider procedures requiring assistance completed. tm6 22:41 IV discontinued, intact, bleeding controlled, No redness/swelling at site. Pressure tm6 dressing applied. Administered Medications: 21:00 Drug: Acetaminophen PO Liquid 15 mg/kg PO once; not to exceed 1000 mg Route: PO; tm6 21:14 Drug: NS 0.9% IV 1000 ml IV at 1000 ml once Route: IV; Rate: 1000 ml; Site: right tm6 antecubital; 22:30 Follow up: IV Intake: 1000ml tm6 Medication: 22:41 VIS not applicable for this client. tm6 Intake: 22:30 IV: 1000ml; Total: 1000ml. tm6 Outcome: 22:12 Discharge ordered by . kb 22:41 Discharged to home via wheelchair, with family, tm6 22:41 Condition: stable 22:41 Discharge instructions given to patient, family, Instructed on discharge instructions, follow up and referral plans. Demonstrated understanding of instructions, follow-up care, 22:42 Patient left the ED. tm6 Signatures: Dispatcher [employer] EDTX Suzanna Bradford, LIGHTING ADVISER-C LIGHTING ADVISER-Junior Ford MD MD kdr Baxter, Heather, RN RN Macie Ley RN RN Skylar Olsen Francisca Burton [facility] Doretha Barker RN RN 6 Gricelda Cantu ae5 Corrections: (The following items were deleted from the chart) 18:14 18:11 Acuity: INESSA 3 hb hb
--- NOTE | 2023-05-22 22:12 | EDPHYS ---
Physician Documentation [facility] Name: Georgina Chacko Age: 77 yrs Sex: Female : 1945 Arrival Date: 05/22/2023 Time: 17:57 Bed 20 Private MD: ED Physician Junior Francis HPI: 05/22 19:53 This 77 yrs old Female presents to ER via Wheelchair with complaints of Fever. kdr 19:53 The patient is brought to the ED by her daughter reports that she has had a cough for 5 kdr days and a fever intermittently for the last 3 days. Patient's had a maximum temperature of 104.0. Patient last given Tylenol at 1600 today. Patient is a prior stroke victim is nonverbal. 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 Onset: The symptoms/episode began/occurred gradually, 5 day(s) ago. Severity of symptoms: At their worst the symptoms were mild in the emergency department the symptoms are unchanged. The patient has not experienced similar symptoms in the past. The patient has not recently seen a physician. Historical: - Allergies: 18:13 No Known Allergies; hb - Home Meds: 18:13 amlodipine 5 mg tab 1 tab once daily [Active]; Vitamin B-12 Oral daily [Active]; hb - PMHx: 18:13 CVA; HTN; hb - PSHx: 18:13 PEG tube; hb - Immunization history:: Client reports receiving the 2nd dose of the Covid vaccine. - Social history:: Smoking status: Patient denies any tobacco usage or history of. ROS: 19:53 Constitutional: Negative for no chills, and weight loss, patient has had a fever to 104 kdr max Eyes: Negative for injury, pain, redness, and discharge, Neck: Negative for injury, pain, and swelling, Cardiovascular: Negative for chest pain, palpitations, and edema, Respiratory: Negative for shortness of breath, cough, wheezing, and pleuritic chest pain, Abdomen/GI: Negative for abdominal pain, nausea, vomiting, diarrhea, and constipation, Back: Negative for injury and pain, MS/Extremity: Negative for injury and deformity, Skin: Negative for injury, rash, and discoloration, Psych: Negative for depression, anxiety, suicide ideation, homicidal ideation, and hallucinations, Allergy/Immunology: Negative for hives, rash, and allergies, Endocrine: Negative for neck swelling, polydipsia, polyuria, polyphagia, and marked weight changes, Hematologic/Lymphatic: Negative for swollen nodes, abnormal bleeding, and unusual bruising, Exam: 19:53 Constitutional: This is a well developed, well nourished patient who is awake, alert, kdr and in no acute distress. Head/Face: Normocephalic, atraumatic. Eyes: Pupils equal round and reactive to light, extra-ocular motions intact. Lids and lashes normal. Conjunctiva and sclera are non-icteric and not injected. Cornea within normal limits. Periorbital areas with no swelling, redness, or edema. Neck: Trachea midline, no thyromegaly or masses palpated, and no cervical lymphadenopathy. Supple, full range of motion without nuchal rigidity, or vertebral point tenderness. No Meningismus. Chest/axilla: Normal chest wall appearance and motion. Nontender with no deformity. No lesions are appreciated. Cardiovascular: Regular rate and rhythm with a normal S1 and S2. No gallops, murmurs, or rubs. Normal PMI, no JVD. No pulse deficits. Respiratory: Lungs have equal breath sounds bilaterally, clear to auscultation and percussion. No rales, rhonchi or wheezes noted. No increased work of breathing, no retractions or nasal flaring. Abdomen/GI: Soft, non-tender, with normal bowel sounds. No distension or tympany. No guarding or rebound. No evidence of tenderness throughout. 19:53 Abdomen/GI: Inspection: There is a feeding tube on the left lower quadrant, Vital Signs: 18:11 BP 143 / 85; Pulse 113; Resp 18; Temp 101.3(O); Pulse Ox 97% on R/A; Weight 49.9 kg; hb Height 5 ft. 2 in. ; Pain 3/10; 19:29 BP 140 / 89; Pulse 118; Resp 30; Pulse Ox 96% on R/A; Pain 0/10; tm6 20:47 Pulse 106; Pulse Ox 96% on R/A; tm6 21:00 Temp 102.3(O); tm6 22:07 BP 122 / 70; Pulse 87; Resp 17; Temp 100.7(O); Pulse Ox 96% on R/A; Pain 0/10; tm6 22:32 BP 122 / 70; Pulse 85; Pulse Ox 98% on R/A; Pain 0/10; tm6 18:11 Body Mass Index 20.12 (49.90 kg, 157.48 cm) hb 18:11 Pain Scale: Adult hb 19:29 Pain Scale: Adult tm6 22:07 Pain Scale: Adult tm6 22:32 Pain Scale: Adult tm6 MDM: 19:53 Data reviewed: vital signs, nurses notes, lab test result(s), radiologic studies. kdr 22:12 Patient medically screened. kb 05/22 18:30 Order name: Blood Culture Adult (2) kdr 05/22 18:30 Order name: CBC with Diff; Complete Time: 19:50 kdr 05/22 18:30 Order name: CMP; Complete Time: 19:50 kdr 05/22 18:30 Order name: Lactate w/ 2H reflex if indic.; Complete Time: 20:33 kdr 05/22 18:30 Order name: Protime (+inr); Complete Time: 19:50 kdr 05/22 18:30 Order name: Ptt, Activated; Complete Time: 19:50 kdr 05/22 18:30 Order name: Urinalysis w/ reflexes; Complete Time: 21:12 kdr 05/22 19:02 Order name: Urine Culture kdr 05/22 19:14 Order name: Glucose, Ancillary Testing; Complete Time: 19:50 EDMS 05/22 20:47 Order name: Flu; Complete Time: 21:48 kdr 05/22 20:47 Order name: COVID-19 SARS RT PCR; Complete Time: 21:55 kdr 05/22 18:30 Order name: Chest Single View XRAY; Complete Time: 21:12 kdr 05/22 18:30 Order name: EKG; Complete Time: 19:14 kdr 05/22 18:30 Order name: Accucheck; Complete Time: 19:29 kdr 05/22 18:30 Order name: Cardiac monitoring; Complete Time: 19:29 kdr 05/22 18:30 Order name: EKG - Nurse/Tech; Complete Time: 19:29 kdr 05/22 18:30 Order name: IV Saline Lock - Large Bore; Complete Time: 19:29 kdr 05/22 18:30 Order name: Labs collected and sent; Complete Time: 19:29 kdr 05/22 18:30 Order name: O2 Per Protocol; Complete Time: kdr 05/22 18:30 Order name: O2 Sat Monitoring; Complete Time: kdr 05/22 18:30 Order name: Vital Signs; Complete Time: kdr Administered Medications: 21:00 Drug: Acetaminophen PO Liquid 15 mg/kg PO once; not to exceed 1000 mg Route: PO; tm6 21:14 Drug: NS 0.9% IV 1000 ml IV at 1000 ml once Route: IV; Rate: 1000 ml; Site: right tm6 antecubital; 22:30 Follow up: IV Intake: 1000ml tm6 Disposition Summary: 05/22/23 22:12 Discharge Ordered Notes: Location: Home kb Condition: Stable kb Diagnosis - SARS-associated coronavirus as the cause of diseases classified elsewhere kb Followup: kb - With: Emergency Department - When: As needed - Reason: Worsening of condition Followup: kb - With: Private Physician - When: 2 - 3 days - Reason: Recheck today's complaints, Continuance of care, Re-evaluation by your physician Discharge Instructions: - Discharge Summary Sheet kb - COVID-19 kb - Viral Illness, Adult kb Forms: - Medication Reconciliation Form kb - Thank You Letter kb - Antibiotic Education kb - Prescription Opioid Use kb - Patient Portal Instructions kb - Leadership Thank You Letter kb Signatures: Dispatcher [employer] Suzanna Belcher, DIRECTOR WOMEN-C [facility]-Junior Ford MD MD kdr Baxter, Heather, RN RN Doretha Barker RN RN tm6
[2023-05-23 00:12] VITALS: BP 122/70; TEMP 100.7; O2SAT 98
== END ==
LOC: ER 17:57
DX: U07.1 COVID-19 (principal); I10 Essential (primary) hypertension; Z86.73 Personal history of transient ischemic attack (TIA), and cerebral infarction without residual deficits
CPT/HCPCS: 87040 ×2; 87088; 85025; 81001; 87086; 36415; 85610; 82947; 83605; 85730; 87077; 87186; 80053; 87635; 87804 ×2; 71045; 99285; J7030; 93005

== ENCOUNTER 2024-03-29 08:15 | Emergency (ER) | payer OTHER ==
[2024-03-29 11:47] LABS: Specific Gravity 1.012 (1.005-1.030); Sqamous Epithelial None Seen /HPF (None Seen); Urine Bacteria 20-50 /HPF (<20); Urine Bilirubin NEGATIVE (Negative); Urine Blood 2+ (Negative); Urine Clarity Extremely Turbid (Clear); Urine Color Light-Yellow (Yellow); Urine Culture Reflex Order REFLEXED; Urine Glucose NEGATIVE (Negative); Urine Ketones NEGATIVE (Negative); Urine Micro Reflex YN NO BILL MICROSCOPIC; Urine Mucus Slight /HPF (None Seen); Urine Nitrite 2+ (Negative); Urine Protein TRACE (Negative); Urine Urobilinogen Normal (Normal); Urine WBC >50 /HPF (<5); Urine pH 7.5 (5.0-7.0)
[2024-03-29 12:36] LABS: Absolute Basophils 0.1 K/uL (0-0.5); Absolute Eosinophils 0.2 K/uL (0-0.5); Absolute Lymphocytes (CBC) 1.8 K/uL (0.7-4.9); Absolute Monocytes 0.4 K/uL (0.1-1.3); Absolute Neutrophil 4.4 K/uL (1.8-8.0); Basophils % 0.9 % (0-1.3); Eosinophils % 2.5 % (0-4.4); Hematocrit 40.9 % (36.0-45.0); Hemoglobin 13.9 g/dL (12.0-15.0); Lymphocytes % 26.8 % (15.3-44.8); MCH 32.7 pg (27.0-35.0); MCV 96.2 fL (80-100); MPV 6.2 fL (7.6-11.3); Monocytes % 5.7 % (3.3-12.3); Neutrophils % 64.1 % (41.7-73.7); Nucleated Red Blood Cells % 0.1 % (0-0); Platelets 256 thou/uL (152-406); RBC Red Blood Cell Count 4.25 M/uL (3.86-4.86); Red Cell Distribution Width 12.5 % (12.1-15.2)
[2024-03-29 12:51] LABS: Albumin/Globulin Ratio 0.7 (1.1-1.8); Anion Gap 7.5 mEq/L (5.0-15.0); Bilirubin Total 0.3 mg/dL (0.2-1.0); Globulin 4.1 g/dL (2.3-3.5); Potassium 3.5 mEq/L (3.5-5.1); Protein, Total 7.1 g/dL (6.4-8.2)
--- NOTE | 2024-03-29 13:33 | ER ---
Nurse's Notes [facility] Name: Georgina Chacko Age: 78 yrs Sex: Female : 1945 Arrival Date: 03/29/2024 Time: 08:15 Bed 6 Private MD: Diagnosis: PEG tube complication;Urinary tract infection Presentation: 03/29 08:32 Chief complaint: Patient's son or daughter states: Believes pt may have pulled and ss displaced peg tube as they are unable to give medications through it this morning. Daughter also reports dark urine that she noticed yesterda. Coronavirus screen: Client denies travel out of the [place] in the last 14 days. Ebola Screen: Patient denies exposure to infectious person. Patient denies travel to an Ebola-affected area in the 21 days before illness onset. Initial Sepsis Screen: Does the patient meet any 2 criteria? No. Patient's initial sepsis screen is negative. Does the patient have a suspected source of infection? No. Patient's initial sepsis screen is negative. Risk Assessment: Do you want to hurt yourself or someone else? Patient reports no desire to harm self or others. Onset of symptoms was March 28, 2024. 08:32 Method Of Arrival: Wheelchair ss 08:32 Acuity: INESSA 3 ss Historical: - Allergies: 08:33 No Known Allergies; ss - PMHx: 08:33 CVA; HTN; ss - PSHx: 08:33 PEG tube; ss - Immunization history:: Client reports having NOT received the Covid vaccine. - Infectious Disease History:: Denies. - Social history:: Smoking status: Patient denies any tobacco usage or history of. - Family history:: not pertinent. Screenin:22 [facility] ED Fall Risk Assessment (Adult) History of falling in the last 3 months, ph including since admission No falls in past 3 months (0 pts) Confusion or Disorientation No (0 pts) Intoxicated or Sedated No (0 pts) Impaired Gait Yes (1 pt) Mobility Assist Device Used Yes (1 pt) Altered Elimination Yes (1 pt) Score/Fall Risk Level 3 or more points = High Risk Oriented to surroundings, Maintained a safe environment, Used ambulatory aids as needed (educated on \T\ assisted with). Abuse screen: Denies threats or abuse. Denies injuries from another. 16:22 Nutritional screening: No deficits noted. Tuberculosis screening: No symptoms or risk ph factors identified. Assessment: 09:00 General: Appears in no apparent distress. Behavior is calm, cooperative. Pain: Denies ph pain. Neuro: Level of Consciousness is awake, alert, obeys commands, Oriented to person, place. Cardiovascular: Capillary refill < 3 seconds in bilateral fingers Patient's skin is warm and dry. Respiratory: Airway is patent Respiratory effort is even, unlabored, Respiratory pattern is regular, symmetrical. GI: PEG tube. Derm: Skin is pink, warm \T\ dry. 11:15 Reassessment: called lab to obtain blood, patient is a difficult stick. ko1 12:50 Reassessment: Initiated transfer with [facility] for GI/ displaced peg tube. Spoke with renetta Sellres, nurse coordinator who states she will get to working on transfer and call back soon. 15:45 Reassessment: report called to [facility]. ph 17:19 Reassessment: [facility] at bedside, pt transferred to [facility]. ph Vital Signs: 08:32 BP 149 / 91; Pulse 75; Resp 16; Temp 97.8(TE); Pulse Ox 97% on R/A; Weight 45.36 kg; Height 5 ft. 1 in. ; Pain 0/10; 10:00 BP 168 / 82; Pulse 72; Resp 18; Pulse Ox 96% on R/A; ph 12:00 BP 149 / 89; Pulse 76; Resp 18; Pulse Ox 97% on R/A; ph 13:30 BP 154 / 78; Pulse 76; Resp 18; Pulse Ox 95% on R/A; ph 16:21 BP 138 / 87; Pulse 72; Resp 18; Temp 97.5; Pulse Ox 98% on R/A; ph 08:32 Body Mass Index 18.89 (45.36 kg, 154.94 cm) ss 08:32 Pain Scale: Adult ED Course: 08:18 Patient arrived in ED. ra3 08:33 Triage completed. ss 08:33 Arm band placed on left wrist. ss 08:38 Salvador Padilla MD is Attending Physician. rt 09:34 Monika Madden, HARINI is Primary Nurse. ph 11:35 Patient has correct armband on for positive identification. Placed in gown. Bed in low ko1 position. Call light in reach. Side rails up X2. Provided Education on: labs. Client placed on continuous cardiac and pulse oximetry monitoring. NIBP monitoring applied. library monitor on. Door closed. Noise minimized. Lights dimmed. Warm blanket given. Pillow given. 11:35 Urine collected: straight cath specimen, cloudy. ko1 14:05 Accessed peripheral vein via ultrasound, utilizing dynamic ultrasound technique using ss 20G Nexia IV catheter ,sterile technique, per hospital protocol. Clean \T\ dry. Dressing intact. Good blood return. Flushes easily. 16:22 No provider procedures requiring assistance completed. Patient transferred, IV remains ph in place. Administered Medications: 14:17 Drug: Rocephin - Rocephin (cefTRIAXone) IVPB 2 grams IVPB once over 30 mins; (mix in ko1 100 mL NS) Route: IVPB; Infused Over: 30 mins; Site: right antecubital; 15:00 Follow up: Response: No adverse reaction; IV Status: Completed infusion ph Medication: 16:22 VIS not applicable for this client. ph Outcome: 13:32 ER care complete, transfer ordered by . rt 17:20 Transferred by ground EMS [facility]. ph 17:20 Condition: good 17:20 Instructed on the need for transfer, 17:21 Patient left the ED. ph Signatures: Radha Wilson, HARINI SCHULER Monika Madden RN RN ph Elizabeth Calle, HARINI RN ko1 Salvador Padilla MD MD rt Andra Sanchez ra3
--- NOTE | 2024-03-29 13:33 | EDPHYS ---
Physician Documentation [facility] Name: Georgina Chacko Age: 78 yrs Sex: Female : 1945 Arrival Date: 03/29/2024 Time: 08:15 Bed 6 Private MD: ED Physician Salvador Padilla HPI: 03/29 14:25 This 78 yrs old Female presents to ER via Wheelchair with complaints of Problem rt With Feeding Tube. 14:25 Patient presents to the ED with problems with feeding tube. Was last used without rt difficulty yesterday afternoon. The family stated that they could not push any feeds through it today. Reports having dark urine. States that it mostly came out today. Denies other acute complaints, symptoms are moderate in severity, no other aggravating alleviating factors.. Historical: - Allergies: 08:33 No Known Allergies; ss - PMHx: 08:33 CVA; HTN; ss - PSHx: 08:33 PEG tube; ss - Immunization history:: Client reports having NOT received the Covid vaccine. - Infectious Disease History:: Denies. - Social history:: Smoking status: Patient denies any tobacco usage or history of. - Family history:: not pertinent. ROS: 14:25 Constitutional: Negative for fever, chills, and weight loss, Cardiovascular: Negative rt for chest pain, palpitations, and edema, Respiratory: Negative for shortness of breath, cough, wheezing, and pleuritic chest pain, Abdomen/GI: Negative for abdominal pain, nausea, vomiting, diarrhea, and constipation, MS/Extremity: Negative for injury and deformity, Skin: Negative for injury, rash, and discoloration, Exam: 14:25 Constitutional: This is a well developed, well nourished patient who is awake, alert, rt and in no acute distress. Head/Face: Normocephalic, atraumatic. Chest/axilla: Normal chest wall appearance and motion. Nontender with no deformity. No lesions are appreciated. Cardiovascular: Regular rate and rhythm with a normal S1 and S2. No gallops, murmurs, or rubs. Normal PMI, no JVD. No pulse deficits. Respiratory: Lungs have equal breath sounds bilaterally, clear to auscultation and percussion. No rales, rhonchi or wheezes noted. No increased work of breathing, no retractions or nasal flaring. Skin: Warm, dry with normal turgor. Normal color with no rashes, no lesions, and no evidence of cellulitis. MS/ Extremity: Pulses equal, no cyanosis. Neurovascular intact. Full, normal range of motion. 14:25 Abdomen/GI: PEG tube was removed on intact, granulation tissue noted at the insertion site, no abdominal tenderness, Vital Signs: 08:32 BP 149 / 91; Pulse 75; Resp 16; Temp 97.8(TE); Pulse Ox 97% on R/A; Weight 45.36 kg; ss Height 5 ft. 1 in. ; Pain 0/10; 10:00 BP 168 / 82; Pulse 72; Resp 18; Pulse Ox 96% on R/A; ph 12:00 BP 149 / 89; Pulse 76; Resp 18; Pulse Ox 97% on R/A; ph 13:30 BP 154 / 78; Pulse 76; Resp 18; Pulse Ox 95% on R/A; ph 16:21 BP 138 / 87; Pulse 72; Resp 18; Temp 97.5; Pulse Ox 98% on R/A; ph 08:32 Body Mass Index 18.89 (45.36 kg, 154.94 cm) ss 08:32 Pain Scale: Adult ss Procedures: 14:26 G-tube placement: a 14 Mont[place]grin catheter was placed, 2 attempts were made at passing PEG rt tube, both unsuccessful. For started with an 18 [place], unable to pass, then unable to pass a 14 [place]in. Procedure was then terminated.. MDM: 08:38 Medical Screening Exam initiated rt 17:30 Differential Diagnosis UTI, PEG tube malfunction. Data reviewed: vital signs, nurses rt notes, lab test result(s). Consideration of Admission/Observation Patient requires transfer for placement of PEG tube as he could not be successfully performed at bedside due to closure of the tract.. Management of patient was discussed with the following: Live Source Operator: Discussed with Dr. Laughlin, states that he does not perform PEG tubes, no GI on-call.. I considered the following discharge prescriptions or medication management in the emergency department Medications were administered in the Emergency Department. See MAR. Counseling: I had a detailed discussion with the patient and/or guardian regarding the historical points, exam findings, and any diagnostic results supporting the discharge/admit diagnosis, lab results, the need to transfer to another facility. Response to treatment: There is no appreciated change of the patient's symptoms at this time. 03/29 08:44 Order name: CBC with Diff; Complete Time: 12:42 rt 03/29 08:44 Order name: CMP; Complete Time: 14:43 rt 03/29 08:44 Order name: UAM; Complete Time: 11:52 rt 03/29 11:50 Order name: Urine Culture EDMS Administered Medications: 14:17 Drug: Rocephin - Rocephin (cefTRIAXone) IVPB 2 grams IVPB once over 30 mins; (mix in ko1 100 mL NS) Route: IVPB; Infused Over: 30 mins; Site: right antecubital; 15:00 Follow up: Response: No adverse reaction; IV Status: Completed infusion ph Disposition Summary: 03/29/24 13:32 Transfer Ordered Notes: Transfer Location: [facility] rt Reason: Patient request rt Condition: Stable rt Problem: new rt Symptoms: are unchanged rt Accepting Physician: (03/29/24 17:21) ph Diagnosis - PEG tube complication rt - Urinary tract infection rt Forms: - Medication Reconciliation Form rt - SBAR form rt Signatures: Dispatcher [employer] EDMS Radha Wilson RN RN ss Monika Madden RN RN ph Elizabeth Calle RN RN ko1 Salvador Padilla MD MD rt Corrections: (The following items were deleted from the chart) 14:29 14:26 G-tube placement: a 14 Montenegrin catheter was placed, 2 attempts were made at rt passing PEG tube, both unsuccessful. For started with an 18 Montenegrin, rt 17:21 13:32 rt ph
[2024-03-29] MEDS ORDERED: NA CHLORIDE 0.9% 100 ML ONE (14:14)
[2024-03-29] MEDS ORDERED: CEFTRIAXONE 2000 MG/VIAL ONE (14:14)
[2024-03-29 17:30] VITALS: BP 138/87; TEMP 97.5; O2SAT 98
== END 2024-03-29 17:21 | disposition short-term general hospital (02) ==
LOC: ER 08:15
DX: K94.29 Other complications of gastrostomy (principal); N39.0 Urinary tract infection, site not specified
CPT/HCPCS: 87088; 85025; 81001; 87086; 36415; 80053; J0696

== ENCOUNTER 2024-06-20 09:50 | Observation (INO) | payer OTHER ==
[2024-06-20 10:28] LABS: Absolute Eosinophils 0.3 K/uL (0-0.5); Absolute Lymphocytes (CBC) 2.4 K/uL (0.7-4.9); Absolute Monocytes 0.6 K/uL (0.1-1.3); Absolute Neutrophil 3.1 K/uL (1.8-8.0); Basophils % 0.7 % (0-1.3); Hematocrit 42.3 % (36.0-45.0); Hemoglobin 14.7 g/dL (12.0-15.0); Lymphocytes % 37.1 % (15.3-44.8); MCH 32.6 pg (27.0-35.0); MCHC 34.7 g/dL (32.0-36.0); MCV 93.9 fL (80-100); MPV 5.9 fL (7.6-11.3); Monocytes % 9.7 % (3.3-12.3); Neutrophils % 47.5 % (41.7-73.7); Nucleated Red Blood Cells % 0.1 % (0-0); Platelets 301 thou/uL (152-406); RBC Red Blood Cell Count 4.51 M/uL (3.86-4.86); Red Cell Distribution Width 12.5 % (12.1-15.2)
[2024-06-20 12:44] LABS: PT Prothrombin Time 9.9 SECONDS (9.4-12.5); PTT, Activated Partial Thromb 23.3 SECONDS (24.3-36.9); Protime INR 0.94
[2024-06-20 12:47] LABS: Albumin 3.2 g/dL (3.4-5.0); Albumin/Globulin Ratio 0.7 (1.1-1.8); Anion Gap 11.1 mEq/L (5.0-15.0); Bilirubin Total 0.4 mg/dL (0.2-1.0); Globulin 4.6 g/dL (2.3-3.5); Protein, Total 7.8 g/dL (6.4-8.2)
[2024-06-20 12:48] LABS: Potassium 4.1 mEq/L (3.5-5.1)
[2024-06-20] MEDS ORDERED: NA CHLORIDE 0.9% 500 ML ONE (14:16)
--- NOTE | 2024-06-20 14:31 | RAD REPORT ---
EXAMINATION: CT ABDOMEN AND PELVIS WITH CONTRAST CLINICAL INDICATION: Female, 78 years old.rectal bleeding;Abd pain TECHNIQUE: CT abdomen and pelvis was performed, after the administration of IV contrast, as per [facility] protocol. Axial, sagittal and coronal reconstructions were obtained. One or more of the following dose reduction techniques were used: Automated exposure control, adjustment of the mA and/o r kV according to patient size, and/or iterative reconstruction. Unless otherwise specified, incidental findings do not require dedicated imaging follow-up. [id number]. COMPARISON: 02/06/2022 FINDINGS: LOWER CHEST: No acute process identified.No significant pericardial effusion. UPPER GI: Gastrostomy tube LIVER: No significant focal abnormality. GALLBLADDER/BILE DUCTS: Cholelithiasis without CT evidence of acute cholecystitis.? PANCREAS: No mass, ductal dilation, or josh-pancreatic fluid. SPLEEN: Unremarkable. ADRENALS: No adrenal masses. KIDNEYS AND URETERS: No hydronephrosis.Low density and/or too small to characterize renal lesions whi ch are statistically benign. ABDOMINAL AORTA AND OTHER VESSELS: Moderate atherosclerotic changes without aortic aneurysm. PERITONEUM: No abnormal free fluid. No free air. LYMPH NODES: No pathologic lymphadenopathy. ABDOMINAL WALL: Unremarkable SMALL BOWEL/COLON: Large rectal stool burden. No bowel obstruction. Mild diverticulosis without diver ticulitis. URINARY BLADDER: Underdistended but grossly unremarkable. REPRODUCTIVE ORGANS: No pathologic process. MUSCULOSKELETAL: T12 compression fracture which may be subacute. It is new since 02/06/22. There is ap proximately 20% loss of height. ADDITIONAL FINDINGS: None. IMPRESSION: Large rectal stool burden which may indicate fecal impaction. Subacute appearing T12 compression fracture with approximately 20% loss of height and no bony retropu lsion.
--- NOTE | 2024-06-20 14:41 | EDPHYS ---
Physician Documentation [facility] Name: Georgina Chacko Age: 78 yrs Sex: Female : 1945 Arrival Date: 06/20/2024 Time: 09:50 Bed 11 Private MD: ED Physician Jim Zamorano HPI: 06/20 10:07 This 78 yrs old Female presents to ER via Wheelchair with complaints of Bloody rn Stools, Abdominal Pain. 10:07 The patient presents to the emergency department with rectal bleeding. Onset: The rn symptoms/episode began/occurred 3 day(s) ago. Modifying factors: The symptoms are alleviated by nothing, the symptoms are aggravated by nothing. Severity of symptoms: At their worst the symptoms were mild in the emergency department the symptoms are unchanged. The patient has not experienced similar symptoms in the past. Family reports abdominal pain with rectal bleeding, reddish blood mixed with stool, soft stool for the last 3 days. No blood thinners. Reports abdominal pain. No fever or chills. No vomiting.. Historical: - Allergies: 10:04 No Known Allergies; ss - Home Meds: 10:04 amlodipine 5 mg tab 1 tab once daily [Active]; ss - PMHx: 10:02 CVA; HTN; ss - PSHx: 10:02 PEG tube; ss - Immunization history:: Adult Immunizations unknown. - Infectious Disease History:: Denies. - Social history:: Smoking status: Patient denies any tobacco usage or history of. - Family history:: not pertinent. - Hospitalizations: : No recent hospitalization is reported. ROS: 10:07 Constitutional: Negative for fever, chills, and weight loss, Cardiovascular: Negative rn for chest pain, palpitations, and edema, Respiratory: Negative for shortness of breath, cough, wheezing, and pleuritic chest pain, Abdomen/GI: Positive for abdominal pain with soft stool and rectal bleeding Exam: 10:07 Constitutional: Confined to wheelchair, no acute distress Cardiovascular: Regular rn rate and rhythm. No pulse deficits. Respiratory: No increased work of breathing, no retractions or nasal flaring. Abdomen/GI: Soft, mild tenderness left and mid abdomen. No peritoneal signs or guarding. MS/ Extremity: Pulses equal, no cyanosis. Neuro: Awake and alert, GCS 15 Vital Signs: 10:01 BP 132 / 92; ss 10:02 Pulse 91; Pulse Ox 100% on R/A; ss 10:02 Resp 16; ss 10:05 Temp 98.2(TE); ss 14:07 BP 130 / 89; Pulse 89; Resp 16; Pulse Ox 100% ; jl7 MDM: 09:56 Medical Screening Exam initiated rn 14:38 Differential diagnosis: GI bleed, internal hemorrhoid, fecal impaction. Data reviewed: rn vital signs, nurses notes, lab test result(s), radiologic studies, CT scan, and as a result, I will admit patient. Consideration of Admission/Observation Patient was admitted/placed on observation. Escalation of care including admission/observation considered. Counseling: I had a detailed discussion with the patient and/or guardian regarding the historical points, exam findings, and any diagnostic results supporting the discharge/admit diagnosis, lab results, radiology results, the need for further work-up and treatment in the hospital. ED course: Patient with evolving fecal impaction, appears higher than just rectum, will admit to Dr. Cavazos for bowel regimen and repeated enema. 06/20 10:05 Order name: CBC with Diff; Complete Time: 10:34 rn 06/20 10:05 Order name: CMP; Complete Time: 13:07 rn 06/20 10:05 Order name: Lipase; Complete Time: 13:07 rn 06/20 10:05 Order name: Protime (+inr); Complete Time: 13:07 rn 06/20 10:05 Order name: Ptt, Activated; Complete Time: 13:07 rn 06/20 10:05 Order name: CT Abd/Pelvis - IV Contrast Only; Complete Time: 14:34 rn 06/20 10:05 Order name: IV Saline Lock; Complete Time: 13:59 rn 06/20 10:05 Order name: Labs collected and sent; Complete Time: 12:12 rn 06/20 10:32 Order name: Labs - recollect needed: recollect blue and green top; Complete Time: 12:12 bd Administered Medications: 14:36 Drug: NS 0.9% IV 500 ml 500 ml IV at 1 bolus once; to be given as a bolus over 30 jl7 minutes Volume: 500 ml; Route: IV; Rate: 1 bolus; Site: left antecubital; 15:00 Follow up: Response: No adverse reaction; IV Status: Completed infusion; IV Intake: jl7 500ml 15:15 Follow up: Response: No adverse reaction; IV Intake: 500ml jl7 16:45 Drug: Fleet Enema CT [address] once; may repeat once Route: CT; jl7 16:45 Follow up: Response: No adverse reaction jl7 Disposition Summary: 06/20/24 14:40 Hospitalization Ordered Notes: Hospitalization Status: Observation rn Provider: Alanna Cavazos rn Location: Telemetry/MedSur (observation) rn Condition: Stable rn Problem: new rn Symptoms: are unchanged rn Bed/Room Type: Standard rn Room Assignment: 422(06/20/24 15:48) bd Diagnosis - Fecal impaction rn - Rectal bleeding rn Forms: - Medication Reconciliation Form rn - SBAR form rn - Leadership Thank You Letter rn Signatures: Dispatcher [employer] EDLaura Zamora Roman, MD MD rn Blanchard, Shelby, RN RN ss Leal, Jahala, RN RN jl7 Corrections: (The following items were deleted from the chart) 15:48 14:40 rn nathaniel
--- NOTE | 2024-06-20 14:41 | ER ---
Nurse's Notes [facility] Name: Georgina Chacko Age: 78 yrs Sex: Female : 1945 Arrival Date: 06/20/2024 Time: 09:50 Bed 11 Private MD: Diagnosis: Fecal impaction;Rectal bleeding Presentation: 06/20 10:01 Chief complaint: Patient states: blood in stool that began 3 days ago. Coronavirus ss screen: Client denies travel out of the [place] in the last 14 days. Ebola Screen: Patient denies exposure to infectious person. Patient denies travel to an Ebola-affected area in the 21 days before illness onset. Initial Sepsis Screen: Does the patient meet any 2 criteria? No. Patient's initial sepsis screen is negative. Does the patient have a suspected source of infection? No. Patient's initial sepsis screen is negative. Risk Assessment: Do you want to hurt yourself or someone else? Patient reports no desire to harm self or others. Onset of symptoms was June 17, 2024. 10:01 Method Of Arrival: Wheelchair ss 10:01 Acuity: INESSA 3 ss Historical: - Allergies: 10:04 No Known Allergies; ss - Home Meds: 10:04 amlodipine 5 mg tab 1 tab once daily [Active]; ss - PMHx: 10:02 CVA; HTN; ss - PSHx: 10:02 PEG tube; ss - Immunization history:: Adult Immunizations unknown. - Infectious Disease History:: Denies. - Social history:: Smoking status: Patient denies any tobacco usage or history of. - Family history:: not pertinent. - Hospitalizations: : No recent hospitalization is reported. Screenin:45 [facility] ED Fall Risk Assessment (Adult) History of falling in the last 3 months, jl7 including since admission No falls in past 3 months (0 pts) Confusion or Disorientation Yes (5 pts) Intoxicated or Sedated No (0 pts) Impaired Gait No (0 pts) Mobility Assist Device Used No (0 pt) Altered Elimination Yes (1 pt) Score/Fall Risk Level 0 - 2 = Low Risk Oriented to surroundings, Maintained a safe environment. Abuse screen: Denies threats or abuse. Denies injuries from another. Nutritional screening: No deficits noted. Tuberculosis screening: No symptoms or risk factors identified. Assessment: 12:12 Reassessment: Recollect sent NOW. ss 14:08 General: Appears in no apparent distress. uncomfortable, Behavior is calm, cooperative, jl7 appropriate for age. Pain: Unable to use pain scale. Does not appear to understand pain scale. FLACC scale score is 2 out of 10. Neuro: Level of Consciousness is awake, alert, obeys commands, Oriented to person, place, time, situation. 16:30 Reassessment: Patient appears in no apparent distress at this time. No changes from jl7 previously documented assessment. Son in law at bedside. Vital Signs: 10:01 BP 132 / 92; ss 10:02 Pulse 91; Pulse Ox 100% on R/A; ss 10:02 Resp 16; ss 10:05 Temp 98.2(TE); ss 14:07 BP 130 / 89; Pulse 89; Resp 16; Pulse Ox 100% ; jl7 ED Course: 09:53 Patient arrived in ED. sj2 09:56 Jim Zamorano MD is Attending Physician. rn 10:02 Triage completed. ss 10:02 Arm band placed on right wrist. ss 10:22 Protime (+inr) Sent. bc6 10:22 Ptt, Activated Sent. bc6 10:22 CBC with Diff Sent. bc6 10:22 CMP Sent. bc6 10:22 Lipase Sent. bc6 10:22 Initial lab(s) drawn, by me, sent to lab. Missed attempt(s): 20 gauge in right bc6 antecubital area. Bleeding controlled, band aid applied, catheter tip intact. 11:48 Kelvin Shane, RN is Primary Nurse. jl7 12:12 Protime (+inr) Sent. ss 12:12 Ptt, Activated Sent. ss 12:12 CMP Sent. ss 12:12 Lipase Sent. ss 12:13 Missed attempt(s): 22 gauge in right antecubital area. Bleeding controlled, band aid ss applied, catheter tip intact. 13:15 Radiology exam delayed due to IV insertion attempt and/or patient not having ls3 appropriate IV at this time. 13:30 Inserted saline lock: 22 gauge in left antecubital area, using aseptic technique. Blood jl7 collected. Flushed with 10 mL NS. 14:09 CT Abd/Pelvis - IV Contrast Only In Process Unspecified. EDMS 14:39 Alanna Cavazos MD is Hospitalizing Provider. rn 15:45 Cleaned of incontinence. jl7 16:00 Patient has correct armband on for positive identification. Bed in low position. Call jl7 light in reach. Side rails up X2. Provided Education on: admission. 16:15 Cleaned of incontinence. jl7 17:10 No provider procedures requiring assistance completed. Patient admitted, IV remains in jl7 place. intact, No redness/swelling at site. Administered Medications: 14:36 Drug: NS 0.9% IV 500 ml 500 ml IV at 1 bolus once; to be given as a bolus over 30 jl7 minutes Volume: 500 ml; Route: IV; Rate: 1 bolus; Site: left antecubital; 15:00 Follow up: Response: No adverse reaction; IV Status: Completed infusion; IV Intake: jl7 500ml 15:15 Follow up: Response: No adverse reaction; IV Intake: 500ml jl7 16:45 Drug: Fleet Enema WI 133 ml WI once; may repeat once Route: WI; jl7 16:45 Follow up: Response: No adverse reaction jl7 Medication: 17:24 VIS not applicable for this client. jl7 Intake: 15:00 IV: 500ml; Total: 500ml. jl7 15:15 IV: 500ml; Total: 1000ml. jl7 Outcome: 14:40 Decision to Hospitalize by Provider. rn 17:10 Admitted to Med/surg accompanied by tech, via stretcher, room 403, with chart, jl7 17:10 Condition: stable 17:10 Discharge instructions given to patient, family, Instructed on the need for admit, Demonstrated understanding of instructions, 17:29 Patient left the ED. jl7 Signatures: Dispatcher [employer] EDMS Jim Zamorano MD MD rn Blanchard, Shelby, RN RN ss Leal, Jahala, RN RN jl7 Patrick Wiggins ls3 Skylar Elias6 David Hanks 2
[2024-06-20] MEDS ORDERED: FLEET ENEMA ADULT PR ONE (15:59)
[2024-06-20 17:29] VITALS: BMI 24.4
[2024-06-20] MEDS ORDERED: FLEET ENEMA ADULT PR PRN (17:30)
[2024-06-20 20:44] VITALS: O2SAT 97
[2024-06-20] MEDS: NA CHLORIDE 0.9% 1,000 ML IV SCH (20:51)
[2024-06-20] MEDS: PNEUMOCOCCAL VACCINE 0.5 ML IMVAC ONE (20:51)
[2024-06-20] MEDS: BISACODYL 10 MG RECTAL SUPP PR ONE (23:04)
[2024-06-21] MEDS: JEVITY 1.5 CAL LIQUID 1,000 ML BOT FT SCH (01:02)
--- NOTE | 2024-06-21 05:59 | HP ---
Date of Admission: 06/20/2024 Chief Complaint: Bleeding per rectum. History Of Present Illness: This is a 78-year-old very pleasant female patient with prior history of stroke who is bed bound, lives at home with her family, was brought into emergency room with noticing some blood mixed with stool as of last night. He has pictures on his cellphone that he showed it to me. In the beginning, she had just a couple of spots on the diaper, but then subsequently the last bowel movement before coming to the emergency room was soft, very soft to liquidy type of stool with what it appeared to be some blood mixed with the stool. No abdominal pain, nausea, vomiting. No fever, chills. With this complaint, she was evaluated in the emergency room and after she was evaluated, I was contacted requesting admission to the hospital. When I saw the patient this evening, she was not in any respiratory distress or any kind of distress at all. Allergies: NO KNOWN ALLERGIES. Medications: Amlodipine 5 mg 2 times a day. Review of Systems: GI: As mentioned above. 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 All other systems reviewed and negative. Past Medical History: Significant for hypertension, prior history of stroke with left-sided hemiplegia, impaired fasting glucose, and the patient has a PEG tube in place and gives Jevity 1 can 4 times a day. also gives her soft food. History of cerebral aneurysm, which resulted in cerebral hemorrhage in 2020 and caused left-sided hemiplegia. 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 Past Surgical History: Significant for repair of cerebral aneurysm in form of clipping and craniotomy. Family History: Father , had alcoholism and cirrhosis of liver. Mother , details unknown. Brother had stroke. Sister had colon cancer. Social History: Negative for smoking and alcohol use. Physical Examination: VITAL SIGNS: Height 5 feet 2 inches, weight pounds. Temperature , pulse , respiratory rate , blood pressure , oxygen saturation . General: Awake, alert, oriented, not in distress. HEENT: Head atraumatic, normocephalic. Conjunctivae nonerythematous. Sclerae white. Mouth, no thrush or edema noted. Ears/Nose, no mass, lesion, discharge noted. Neck: Supple. No JVD, lymph nodes, bruit, thyromegaly noted. Lungs: Bilateral good equal air entry. Clear to auscultation. No rhonchi. No rales. Heart: Normal heart sounds, no murmur or gallop. Abdomen: The patient has a PEG tube present in the left upper anterior abdominal wall. Surrounding skin appears normal, otherwise abdomen is soft. Bowel sounds normal. No guarding, rigidity, tenderness, distention. Extremities: No leg edema. No calf tenderness. Skin: No rash, ulcer, cellulitis. Lymphatics: No lymph node enlargement in neck, supraclavicular, infraclavicular region. Neuro: Left-sided hemiplegia. Chest: Unremarkable. External Genitalia: Deferred. Rectal: Deferred. Laboratory Data: WBC 6.5, hemoglobin 14.7, platelets 301. Sodium 126, potassium 4.1, chloride 91, bicarb 28, BUN 14, creatinine 0.63, glucose 105. Lipase 71. CAT scan of abdomen and pelvis shows large amount of stool burden in the rectum indicating fecal impaction and subacute appearing T12 compression fracture with approximately 20% height loss. No bony retropulsion. Impression: 1. Rectal bleeding. 2. Constipation. 3. Stroke with left-sided hemiplegia. 4. Hypertension. 5. Impaired fasting glucose. 6. T12 compression fracture. Plan: We will go ahead and admit the patient to hospital for further evaluation and management of this problem. For rectal bleeding, no need for any further intervention except monitoring of hemoglobin and hopefully that will not become a major issue during this hospitalization, but we will monitor her closely for any worsening signs and symptoms. I strongly suspect the rectal bleeding is the result of underlying fecal impaction problem and we will treat that with Dulcolax rectal suppository 1 time dose now as well as Fleet Enema to be given few hours after the suppository. I will see her tomorrow morning for followup. We will repeat blood work tomorrow. For hypertension, we will continue amlodipine as per order and monitor blood pressure if necessary. Make adjustment on medication. Four impaired fasting glucose, no need for further intervention. For her stroke, no need for any further intervention. I have ordered Jevity to be given 4 times a day and patient's may feed her with soft diet. Details and plan of treatment discussed with the patient's who was at bedside and I will see her in the morning for followup. Total time spent 65 minutes including review of office visit to get from 04/11/2024, communication with the emergency room physician, and performing today's evaluation and management. PABLO/NORM Voice ID: [id number] MTDD
[2024-06-21 06:36] LABS: Anion Gap 6.5 mEq/L (5.0-15.0); Potassium 3.5 mEq/L (3.5-5.1)
[2024-06-21 07:02] LABS: Absolute Eosinophils 0.3 K/uL (0-0.5); Absolute Monocytes 0.8 K/uL (0.1-1.3); Absolute Neutrophil 6.2 K/uL (1.8-8.0); Basophils % 0.5 % (0-1.3); Eosinophils % 2.7 % (0-4.4); Hematocrit 39.4 % (36.0-45.0); Hemoglobin 14.1 g/dL (12.0-15.0); Lymphocytes % 21.5 % (15.3-44.8); MCH 33.2 pg (27.0-35.0); MCHC 35.7 g/dL (32.0-36.0); MCV 92.9 fL (80-100); MPV 6.6 fL (7.6-11.3); Monocytes % 8.7 % (3.3-12.3); Neutrophils % 66.6 % (41.7-73.7); Nucleated Red Blood Cells % 0.1 % (0-0); Platelets 263 thou/uL (152-406); RBC Red Blood Cell Count 4.24 M/uL (3.86-4.86); Red Cell Distribution Width 12.2 % (12.1-15.2)
[2024-06-21 08:53] VITALS: BP 116/66; TEMP 98.3
--- NOTE | 2024-06-22 04:44 | DS ---
Date of Discharge: 06/21/2024 Disposition: Discharged to go home. Physical Examination: HEENT: Unremarkable. Lungs: Clear to auscultation. Heart: Sounds normal. Abdomen: Soft. Bowel sounds normal. No guarding, rigidity, tenderness, distention. Extremities: No leg edema. Laboratory Data: Yesterday, WBC 6.5, hemoglobin 14.7, platelets 301. Today, WBC 9.3, hemoglobin 14. 1, platelets 263. For chemistry yesterday, sodium 126, potassium 4.1, chloride 91, bicarb 28, BUN 14 , creatinine 0.63, glucose 105. Liver function tests unremarkable. Lipase 71. Today, sodium 133, p otassium 3.5, chloride 102, bicarb 28, BUN 12, creatinine 0.53, glucose 111. Hospital Course: This is a 78-year-old pleasant female, who came into emergency room with complaints of bleeding per rectum. Please see dictated H and P for more information. After the patient was ev aluated in emergency room yesterday, she was admitted to the hospital. The patient was noted to have significant amount of fecal impaction and this was corrected with help of Dulcolax rectal suppositor y and Fleet enema and the patient had a large bowel movement as reported by the patient's thi s morning. She has not had any recurrence of bleeding problem. Hemodynamically, she remained stable . Blood work remained stable for today. Decision was made to discharge her to go home in stable con dition with following discharge medications and instructions. Final Diagnoses: 1.Rectal bleeding. 2.Constipation. 3.Stroke with left-sided hemiplegia. 4.Hypertension. 5.Impaired fasting glucose. 6.T12 compression fracture. Discharge Medications And Instructions: 1.Continue all prior home medications. 2.Start cctg-wfb-hyjhdei MiraLAX powder, take 17 g powder mixed in 8-ounce water and take it daily a s per feeding tube and this instruction was explained to the patient's by me this morning. 3.Follow up at my office next week. Total time spent today 30 minutes. PABLO/MODL Voice ID: [id number] Report ID: [id number]
== END 2024-06-21 09:40 | disposition home or self-care (01) ==
LOC: ER 09:50 → ERHOLD 15:02 → 4TH 16:38
PROVIDERS: ADMIT Internal Medicine; ATTEND Internal Medicine
DX: K62.5 Hemorrhage of anus and rectum (principal); K59.00 Constipation, unspecified; I69.354 Hemiplegia and hemiparesis following cerebral infarction affecting left non-dominant side; I10 Essential (primary) hypertension; R73.01 Impaired fasting glucose; M48.54XA Collapsed vertebra, not elsewhere classified, thoracic region, initial encounter for fracture
CPT/HCPCS: 85025 ×2; 80048; 36415; 85610; 85730; 83690; 80053; 74177; 90471; 90732; Q9967; J7040; J7030; 99285; G0378